=== PATIENT | male | born 1955 | race Caucasian/White ===

== ENCOUNTER 2023-02-24 07:43 | Outpatient (OUT) | payer MEDICARE, OTHER, SELFPAY ==
[2023-02-24 09:18] LABS: Chol HDL Ratio 2.7; Cholesterol 122 mg/dL (<=200); HDL Cholesterol 45 mg/dL (40-60); LDL Cholesterol Calculated 65.4 mg/dL; Magnesium 1.9 mg/dL (1.8-2.4); Triglycerides 58 mg/dL (<=150); VLDL CHOLESTEROL 11.6 mg/dL
== END 2023-02-24 07:44 | disposition home or self-care (01) ==
LOC: LAB 07:48
PROVIDERS: PCP Internal Medicine
DX: E78.2 Mixed hyperlipidemia (principal); I10 Essential (primary) hypertension
CPT/HCPCS: 36415; 80061; 83735

== ENCOUNTER 2024-07-30 12:56 | Outpatient (OUT) | payer MEDICARE, OTHER, SELFPAY ==
[2024-07-30 13:30] LABS: Basophils Absolute Auto 0.1 10^3/uL (0.0-0.1); Basophils Percent Auto 0.9 % (0.2-2.0); Eosinophils Absolute Auto 0.3 10^3/uL (0.0-0.7); Eosinophils Percent Auto 2.8 % (0.9-7.0); Hematocrit 42.1 % (42.0-54.0); Hemoglobin 14.3 g/dL (14.0-18.0); Immature Granulocytes Abs Auto 0.02 10^3/uL (0.00-0.03); Immature Granulocytes Pct Auto 0.2 % (0.0-0.5); Lymphocytes Absolute Auto 3.9 10^3/uL (1.2-3.8); Lymphocytes Percent Auto 44.4 % (20.5-60.0); Mean Corpuscular Hemoglobin 31.2 pg (25.9-34.0); Mean Corpuscular Volume 91.7 fL (80.0-94.0); Mean Platelet Volume 9.4 fL (9.5-13.5); Monocytes Absolute Auto 0.8 10^3/uL (0.3-0.8); Monocytes Percent Auto 9.4 % (1.7-12.0); Neutrophils Absolute Auto 3.7 10^3/uL (1.4-6.5); Neutrophils Percent Auto 42.3 % (43.0-75.0); Platelet Count 162 10^3/uL (150-450); Red Blood Count 4.59 10^6/uL (4.70-6.10); Red Cell Distribution Width 13.3 % (11.0-15.0); White Blood Count 8.8 10^3/uL (4.0-11.0)
[2024-07-30 13:51] LABS: Erythrocyte Sedimentation Rate 16 mm/hr (<=20)
[2024-07-30 13:58] LABS: C Reactive Protein <0.50 mg/dL (<=0.50)
== END 2024-07-30 12:57 | disposition home or self-care (01) ==
LOC: LAB 12:59
PROVIDERS: PCP Internal Medicine; Visit Provider Orthopaedic Surgery
DX: Z47.1 Aftercare following joint replacement surgery (principal); Z96.652 Presence of left artificial knee joint
CPT/HCPCS: 36415; 85025; 85652; 86140

== ENCOUNTER 2025-02-19 20:56 | Outpatient (OUT) | payer MEDICARE, OTHER, SELFPAY ==
--- OUTSIDE RECORDS SUMMARY | 2025-02-19 21:01 | XMS_ITS | Encounter Summary ---
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 Division of [facility] [place] - Sleep Disorders [address] [place] [address] [place] [address] [place] [address] [place] [address] Sleep Lab (PSG) Social History Tobacco UseTypesPacks/DayYears UsedDateSmoking Tobacco: [id number] Smokeless Tobacco: NeverAlcohol UseStandard Drinks/WeekCommentsYes2 (1 standard drink = 0.6 oz pure alcohol)beerSocial Connection and Isolation PanelAnswerDate RecordedIn a typical week, how many times do you talk on the phone with family, friends, or neighbors?More than three times a week03/17/2022How often do you get together with friends or relatives?More than three times a week03/17/2022How often do you attend adventist or mandaen services?More than 4 times per year 2Do you belong to any clubs or organizations such as adventist groups, unions, fraternal or athletic groups, or school groups?Yes03/17/2022How often do you attend meetings of the clubs or organizations you belong to?More than 4 times per year03/17/2022re you , , , , never , or living with a partner?Rsbfknm2803/17/2022UDIT-CAnswerDate RecordedQ1: How often do you have a drink containing alcohol?4 or more times a week 03/17/2022Q2: How many drinks containing alcohol do you have on a typical day when you are drinking?3 or Q3: How often do you have six or more drinks on one occasion?Never03/17/2022verall Financial Resource Strain (CARDIA) AnswerDate RecordedHow hard is it for you to pay for the very basics like food, housing, medical care, and heating?Not hard at all03/17/2022HQ-2AnswerDate RecordedTotal Nmmxh951[facility] [place] of Occup[facility] - Occupational Stress QuestionnaireAnswerDate RecordedDo you feel stress - tense, restless, nervous, or anxious, or unable to sleep at night because yourmind is troubled all the time - these days?Patient zcwgycxp69/30/2022Exercise Vital Sign AnswerDate RecordedOn average, how many days per week do you engage in moderate to strenuous exercise (like a brisk walk)?5 days03/17/2022n average, how many minutes do you engage in exercise at this level?20 min03/17/2022RAPARE - TransportationAnswerDate RecordedIn the past 12 months, has lack of transportation kept you from medical appointments or from getting medications?No 03/17/2022In the past 12 months, has lack of transportation kept you from meetings, work, or from getting things needed for daily living?No03/17/2022 ChildcareAnswerDate RecordedDo problems getting 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 children'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 make it difficult for you to work or study?No03/17/2022EmploymentAnswerDate RecordedDo you need help finding a local career center and/or a training program?No03/17/2022Hunger ScreeningAnswerDate RecordedWithin the past 12 months we worried whether our food would run out before we got money to buy more.Never True10/24/2024Within the past 12 months the food we bought just didn't last and we didn't have money to get more.Never True10/24/2024Purpose - LifeAnswerDate RecordedI have a purpose and direction in my life.Strongly Agree03/17/2022EducationAnswerDate RecordedWhat is the highest level of school you have completed or the highest degree you have received?Associate degree: occupational, technical, or vocational vwftpht9903/17/2022ex and Gender InformationValueDate RecordedSex Assigned at BirthNot on fileLegal WpqXuvr1111/21/2014 11:54 AM EDTGender Identity Not on fileSexual OrientationNot on filedocumented as of this encounter Miscellaneous Notes * Telephone Encounter - Svetlana Ragland - 02/06/2025 2:01 PM EDT 02/04 received PSG order 02/06 1st call, [facility] said they can't take the call and hung up. Sent letter PSG order and 02/04 Cesar notes in epic * Telephone Encounter - Lyn Morataya - 02/06/2025 2:01 PM EDT Order Deferred Pt called he is already scheduled [place] sleep study documented in this encounter Plan of Treatment DateTypeDepartmentCare Team (Latest Contact Info)Rfuityyhmcv52/06/2025 8:00 AM ESTOffice Visit [facility] [address] [place] [address] Dameon Eason MD [address] [place] [address] Sofía Wong MD [address] [place], [place] [id number] 03/18/2025 11:30 AM ESTOffice Visit [facility] [address] [place] [address] Katheryn Gill, DO [address] [place] [address] 03/20/2025 12:30 PM ESTH[facility] [address] [place] [address] [place] [address] Katheryn Gill, DO [address] [place] [address] 03/20/2025 12:30 PM EST - 03/20/2025 2:30 PM ESTSurgery [facility] [address] [place] [address] Katheryn Gill, DO [address] [place] [address] LIGATION VEIN LOWER EXTREMITY OPEN GROIN VARICOSITIES (DIRECTLY OFF THE FEMORAL VEIN WITH NO STRAIGHT SEGMENT)04/01/2025 10:30 AM ESTOffice Visit [facility] [address] [place] [address] [address] [place] [address] Katheryn Gill, DO [address] [place] [address] NamePriorityAssociated DiagnosesDate/TimeLIGATION VEIN LOWER EXTREMITY Chronic venous insufficiency of lower extremity 03/20/2025 12:30 PM ESTPHLEBECTOMY Chronic venous insufficiency of lower extremity 03/20/2025 12:30 PM ESTdocumented as of this encounter Visit Diagnoses Not on filedocumented in this encounter Additional Health Concerns AssessmentNoted TimePHQ-9 Depression Total Score: 1:54 PM EDT documented as of this encounter Care Teams Team MemberRelationshipSpecialtyStart DateEnd Date Darell Chapman DO [address] [place] [address] PCP - GeneralInternal Medicine11/01/16documented as of this encounter
--- OUTSIDE RECORDS SUMMARY | 2025-02-19 21:01 | XMS_ITS | CCD ---
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 Name Role Phone MD MADHURI GERMAIN Attending Unavailable ALEK SHELTON Primary Care Unavailable ALEK SHELTON Consulting Unavailable Prince Velazquez Consulting Unavailable MD MDAHURI GERMAIN Attending Unavailable ALEK SHELTON Primary Care Unavailable ALEK SHELTON Consulting Unavailable MD MADHURI GERMAIN Admitting Unavailable MD MADHURI GERMAIN Attending Unavailable ALEK SHELTON Primary Care Unavailable ALEX HAYES PA-C Consulting Unavaila MD MADHURI Moreno Admitting Unavailable MD AMDHURI GERMAIN Attending Unavailable YUHAS, ALEK LOPEZ Primary Care Unavailable ALEX HAYES PA-C Consulting Unavaila ble ALEK SHELTON Consulting Unavailable MD MADHURI GERMAIN Attending Unavailable VIOLAHAS, ALEK LOPEZ Primary Care Unavailable MARIESALEK Consulting Unavailable Prince Velazquez Consulting Unavailable MD MADHURI GERMAIN Attending Unavailable MD FARHEEN STONE Referring Unavaila ble ALEK SHELTON Primary Care Unavailable Prince Velazquez Consulting Unavailable MD MADHURI GERMAIN Attending Unavailable ALEK SHELTON Primary Care Unavailable ALEK SHELTON Consulting Unavailable DO Alek Shelton Primary Care Provider [phone] MD Jaren Velazquez Attending Provider DO Alek Shelton Primary Care Provider [phone] MD Jaren Velazquez Attending Provider DR JUMA RODRIGUEZ Consulting Unavailable THERON Noel, DR DENNISON Attending Unavailable CAT, DR GASTON Primary Care Unavailable THERON Noel, DR DENNISON Admitting Unavailable MISC, DR KNOX Consulting Unavailable MISC, DR KNOX Attending Unavailable YUHAAlexandria, DR GASTON Primary Care Unavailable MISC, DR DOCTOR Admitting Unavailable YUHAS, DR GASTON Primary Care Unavailable WEST, DR MIREYA Basurto Consulting Unavailable WEST, DR MIREYA Basurto Attending Unavailable WEST, DR MIREYA Basurto Admitting Unavailable ZIEBER, DR DARIN Yee Consulting Unavailable WEST, DR MIREYA Basurto Consulting Unavailable WEST, DR MIREYA Basurto Attending Unavailable YUHAS, DR GASTON Primary Care Unavailable WEST, DR MIREYA Basurto Admitting Unavailable ZIEBER, DR DARIN Yee Consulting Unavailable YUHAS, DR GASTON Primary Care Unavailable WEST, DR MIREYA Basurto Attending Unavailable WEST, DR MIREYA Basurto Admitting Unavailable WEST, DR MIREYA Basurto Consulting Unavailable ZIEBER, DR DARIN Yee Consulting Unavailable WEST, DR MIREYA Basurto Consulting Unavailable YUHAS, DR GASTON Primary Care Unavailable WEST, DR MIREYA Basurto Attending Unavailable WEST, DR MIREYA Basurto Admitting Unavailable ZIEBER, DR DARIN Yee Consulting Unavailable YUHAS, DR GASTON Primary Care Unavailable WEST, DR MIREYA Basurto Attending Unavailable WEST, DR MIREYA Basurto Admitting Unavailable WEST, DR MIREYA Basurto Consulting Unavailable ZIEBER, DR DARIN Yee Consulting Unavailable YUHAS, DR GASTON Primary Care Unavailable WEST, DR MIREYA Basurto Consulting Unavailable WEST, DR MIREYA Basurto Attending Unavailable WEST, DR MIREYA Basurto Admitting Unavailable ZIEBER, DR DARIN Yee Consulting Unavailable YUHAS, DR GASTON Primary Care Unavailable WEST, DR MIREYA Basurto Consulting Unavailable WEST, DR MIREYA Basurto Attending Unavailable WEST, DR MIREYA Basruto Admitting Unavailable Yuhas, DO Gaston Primary Care Provider ILIANA Villanueva Attending Provider MariesDO Gaston Primary Care Provider [phone] ILIANA Villanueva Attending Provider Yus, DO Gaston Primary Care Provider ILIANA Villanueva Attending Provider Yuhas, DO Gaston Primary Care Provider MD Prince Velazquez Attending Provider Alek Shelton DO Primary Care Provider Alek Shelton DO Primary Care Provider Prince Velazquez MD Attending Provider Yuhas DO, Alek L Primary Care Provider Maries Alek Primary Care Provider Prince Velazquez MD Attending Provider [phone] Shelby Waldron DO Attending Provider DEBENEDETTI, YANI L Attending Unavailable YUHAS, ALEK L Referring Unavailable YUHAS, ALEK L Primary Care Unavailable DEBENEDETTI, YANI L Attending Unavailable DEBENEDETTI, YANI L Referring Unavailable YUHAS, ALEK L Primary Care Unavailable DEBENEDETTI, YANI L Attending Unavailable DEBENEDETTI, YANI L Referring Unavailable YUHAS, ALEK L Primary Care Unavailable DEBENEDETTI, YANI L Attending Unavailable DEBENEDETTI, YANI L Referring Unavailable YUHAS, ALEK L Primary Care Unavailable DEBENEDETTI, YANI L Attending Unavailable DEBENEDETTI, YANI L Referring Unavailable YUHAS, ALEK L Primary Care Unavailable DEBENEDETTI, YANI L Attending Unavailable DEBENEDETTI, YANI L Referring Unavailable YUHAS, ALEK L Primary Care Unavailable DEBENEDETTI, YANI L Attending Unavailable DEBENEDETTI, YANI L Referring Unavailable YUHAS, ALEK L Primary Care Unavailable YUHAS, ALEK L Attending Unavailable YUHAS, ALEK L Referring Unavailable YUHAS, ALEK L Primary Care Unavailable ALEA, CURRY Attending Unavailable ALEA, CURRY Referring Unavailable YUHAS, ALEK L Primary Care Unavailable ALEA, CURRY Attending Unavailable YUHAS, LAEK L Referring Unavailable YUHAS, ALEK L Primary Care Unavailable KATHERYN POWERS M Referring Unavailable YUHAS, ALEK L Primary Care Unavailable KATHERYN POWERS M Attending Unavailable POWERSKATHERYN M Referring Unavailable YUHAS, ALEK L Primary Care Unavailable POWERS KATHERYN M Attending Unavailable POWERS, KATHERYN M Referring Unavailable YUHAS, ALEK L Primary Care Unavailable Yuhas Alek GREGORY Primary Care Provider [phone] Prince Velazquez MD Attending Provider YUHAS, ALEK L Attending Unavailable YUHAS, ALEK L Referring Unavailable YUHAS, ALEK L Primary Care Unavailable YUHAS, ALEK L Attending Unavailable YUHAS, ALEK L Referring Unavailable YUHAS, ALEK L Primary Care Unavailable KATHERYN POWERS M Attending Unavailable YUHAS, ALEK L Referring Unavailable YUHAS, ALEK L Primary Care Unavailable KATHERYN POWERS M Attending Unavailable YUHAS, ALEK L Referring Unavailable MARIEALEK Ibrahim Primary Care Unavailable Velazquez, Prince Admitting Unavailable Velazquez, Prince Attending Unavailable MarieAlek ibrahim Primary Care Unavailable Violahas, Alek Primary Care Unavailable Velazquez, Prince Admitting Unavailable Velazquez, Prince Attending Unavailable CatAlek Primary Care Unavailable Velazquez, Prince Admitting Unavailable Velazquez, Prince Attending Unavailable Velazquez, Prince Attending Unavailable Velazquez, Prince Admitting Unavailable Violahas, Alek Primary Care Unavailable Maries Alek GREGORY Primary Care Provider [phone] CURRY CLEMONS Attending Unavailable YANI LUCIO Referring Unavailable MARIEALEK Ibrahim Primary Care Unavailable VIOLAALEK LOVE Referring Unavailable MARIEALEK Ibrahim Primary Care Unavailable HERNANDO GUERRERO Attending Unavailable MARIEALEK Ibrahim Referring Unavailable MARIEALEK Ibrahim Primary Care Unavailable Allergies Allergy ClassificationReported Allergen(s)Allergy TypeDate of OnsetReaction(s) Facility (1 source)Povidone-Iodine; Translations: [Betadine][facility] Medic[facility] Current Medications MedicationDrug Class(es)DatesSig (Normalized)Sig (Original)Acetaminophen (20 sources)take 1300 mg by mouth in the morningACETAMINOPHEN (TYLENOL ARTHRITIS ORAL) Take 1,300 mg by mouth in the morning. Activetake 1300 mg by mouth once dailyACETAMINOPHEN (TYLENOL ARTHRITIS ORAL) Take 1,300 mg by mouth daily. Active take 1300 mg by mouth once dailyACETAMINOPHEN (TYLENOL ARTHRITIS ORAL) Take 1,300 mg by mouth daily. 0 Activeatorvastatin 20 mg oral tablet (20 sources)HMG-CoA Reductase InhibitorStart: 35-58-7077gssa 1 tablet by mouth once daily at bedtimeatorvastatin (LIPITOR) 20 mg tablet Indications: Bradycardia , Essential hypertension , Mixed hyperlipidemia , Arteriosclerosis of arterial coronary artery bypass graft , Coronary arteriosclerosis Take 1 tablet (20 mg total) by mouth once daily at bedtime. 90 tablet 3 06/11/2024 ActiveStart: 04-16-2024 End: 27-80-3471xrlm 1 tablet by mouth once daily at bedtimeatorvastatin (LIPITOR) 20 mg tablet Indications: Bradycardia , Essential hypertension , Mixed hyperlipidemia , Arteriosclerosis of arterial coronary artery bypass graft , Coronary arteriosclerosis Take 1 tablet (20 mg total) by mouth once daily at bedtime. 04/16/2024 06/08/2024 Discontinued (Reorder)Start: 03-29-2024 atorvastatin (LIPITOR) 20 mg tablet Indications: Arteriosclerosis of arterial coronary artery bypass graft , Essential hypertension , Coronary arteriosclerosis , Mixed hyperlipidemia , Bradycardia TAKE 1 TABLET IN THE EVENING 90 tablet 03/29/2024 ActiveStart: 03-29-2023 End: 69-74-1554brxg 1 tablet by mouth once daily at bedtimeatorvastatin (LIPITOR) 20 mg tablet Indications: Bradycardia , Essential hypertension , Mixed hyperlipidemia , Arteriosclerosis of arterial coronary artery bypass graft , Coronary arteriosclerosis Take 1 tablet (20 mg total) by mouth once daily at bedtime. 04/16/2024 Activeazelastine hydrochloride 0.137 mg/actuat metered dose nasal spray (3 sources)Histamine-1 Receptor AntagonistStart: 87-88-4408lece 1 spray(s) nasal route in the morningazelastine (ASTELIN) 137 mcg (0.1 %) nasal spray Indications: Nasal congestion Administer 1 spray into each nostril in the morning and 1 spray before bedtime. Use in each nostril as directed. 30 mL 12 02/04/2025 Activecelecoxib 200 mg oral capsule (11 sources)Nonsteroidal Anti-inflammatory DrugStart: 31-72-5402iihb 1 capsule by mouth in the morningcelecoxib (CeleBREX) 200 mg capsule Take 1 capsule (200 mg total) by mouth in the morning. 08/27/2024 Activecetirizine hydrochloride 10 mg oral tablet (20 sources)Histamine-1 Receptor Antagonisttake 1 tablet by mouth in the morning cetirizine (ZyrTEC) 10 mg tablet Take 1 tablet (10 mg total) by mouth in the morning. Activecholecalciferol 0.025 mg oral tablet (20 sources)Vitamin Dtake 1 tablet by mouth in the morningcholecalciferol, vitamin D3, (VITAMIN D3) 1,000 units tablet Take 1 tablet (1,000 Units total) by mouth in the morning. Activeclopidogrel 75 mg oral tablet (20 sources)P2Y12 Platelet InhibitorStart: 90-98-1642tqsx 1 tablet by mouth in the morningclopidogreL (PLAVIX) 75 mg tablet Indications: Bradycardia , Essential hypertension , Mixed hyperlipidemia , Arteriosclerosis of arterial coronary artery bypass graft , Coronary arteriosclerosis Take1 tablet (75 mg total) by mouth in the morning. 90 tablet 3 06/11/2024 ActiveStart: 04-16-2024 End: 21-51-7981dvvb 1 tablet by mouth in the morningclopidogreL (PLAVIX) 75 mg tablet Indications: Bradycardia , Essential hypertension , Mixed hyperlipidemia , Arteriosclerosis of arterial coronary artery bypass graft , Coronary arteriosclerosis Take1 tablet (75 mg total) by mouth in the morning. 90 tablet 3 04/16/2024 06/08/2024 Discontinued (Reorder)Start: 61-57-3966ocushdtsrmF (PLAVIX) 75 mg tablet Indications: Arteriosclerosis of arterial coronary artery bypass graft , Essential hypertension , Coronary arteriosclerosis , Mixed hyperlipidemia , Bradycardia TAKE1 TABLET EVERY MORNING 90 tablet 03/29/2024 ActiveStart: 03-29-2023 End: 23-64-3591vzed 1 tablet by mouth in the morningclopidogreL (PLAVIX) 75 mg tablet Indications: Bradycardia , Essential hypertension , Mixed hyperlipidemia , Arteriosclerosis of arterial coronary artery bypass graft , Coronary arteriosclerosis Take1 tablet (75 mg total) by mouth in the morning. 90 tablet 3 04/16/2024 Activeezetimibe 10 mg oral tablet (20 sources)Dietary Cholesterol Absorption InhibitorStart: 94-71-9108krcn 1 tablet by mouth in the morningezetimibe (ZETIA) 10 mg tablet Indications: Bradycardia , Essential hypertension , Mixed hyperlipidemia , Arteriosclerosis of arterial coronary artery bypass graft , Coronary arteriosclerosis Take 1 t ablet (10 mg total) by mouth in the morning. 90 tablet 3 06/11/2024 ActiveStart: 04-16-2024 End: 63-24-2884mydj 1 tablet by mouth in the morningezetimibe (ZETIA) 10 mg tablet Indications: Bradycardia , Essential hypertension , Mixed hyperlipidemia , Arteriosclerosis of arterial coronary artery bypass graft , Coronary arteriosclerosis Take 1 tablet (10 mg total) by mouth in the morning. 04/16/2024 06/08/2024 Discontinued (Reorder)Start: 92-53-9998qngunzodk (ZETIA) 10 mg tablet Indications: Arteriosclerosis of arterial coronary artery bypass graft , Essential hypertension , Coronary arteriosclerosis , Mixed hyperlipidemia , Bradycardia TAKE 1 TABLET EVERY MORNING 90 tablet 03/29/2024 ActiveStart: 03-29-2023 End: 52-89-9858xymv 1 tablet by mouth in the morningezetimibe (ZETIA) 10 mg tablet Indications: Bradycardia , Essential hypertension , Mixed hyperlipidemia , Arteriosclerosis of arterial coronary artery bypass graft , Coronary arteriosclerosis Take 1 tablet (10 mg total) by mouth in the morning. 04/16/2024 Activefamotidine 40 mg oral tablet (3 sources)Histamine-2 Receptor AntagonistStart: 29-22-5955jkok 1 tablet by mouth in the morning, then take 1 tablet by mouth at bedtimefamotidine (PEPCID) 40 mg tablet Indications: Globus sensation , Laryngopharyngeal reflux (LPR) Take 1 tablet (40 mg total) by mouth in the morning and 1 tablet (40 mg total) before bedtime. 60 tablet 02/04/2025 Activefluticasone propionate 0.05 mg/actuat metered dose nasal spray (20 sources)CorticosteroidStart: 66-11-2539gtgf 2 spray(s) nasal route in the morningfluticasone propionate (FLONASE) 50 mcg/actuation nasal spray Indications: Nasal congestion Administer 2 sprays into each nostril in the morning. 16 g 11 02/04/2025 ActiveStart: 09-16-2022 End: 17-71-6633gpwhvncpwls propionate (FLONASE) 50 mcg/actuation nasal spray Indications: Seasonal allergic rhinitis, unspecified trigger Administer 1 spray into each nostril as needed for rhinitis or allergies. 16g 2 06/14/2023 Active inFLIXimab 100 mg injection (20 sources)Tumor Necrosis Factor BlockerinFLIXimab (REMICADE) 10 mg/mL injection Infuse into a venous catheter. Every 16 weeks -700 mg Activelosartan potassium 100 mg oral tablet (20 sources)Angiotensin 2 Receptor BlockerStart: 75-74-8841yngl 1 tablet by mouth in the morninglosartan (COZAAR) 100 mg tablet Indications: Bradycardia , Essential hypertension , Mixed hyperlipidemia , Arteriosclerosis of arterial coronary artery bypass graft , Coronary arteriosclerosis Take 1tablet (100 mg total) by mouth in the morning. 90 tablet 3 06/11/2024 ActiveStart: 04-16-2024 End: 30-58-3335elxv 1 tablet by mouth in the morninglosartan (COZAAR) 100 mg tablet Indications: Bradycardia , Essential hypertension , Mixed hyperlipidemia , Arteriosclerosis of arterial coronary artery bypass graft , Coronary arteriosclerosis Take 1tablet (100 mg total) by mouth in the morning. 04/16/2024 06/08/2024 Discontinued (Reorder)Start: 94-19-6468zgtjnbom (COZAAR) 100 mg tablet Indications: Arteriosclerosis of arterial coronary artery bypass graft , Essential hypertension , Coronary arteriosclerosis , Mixed hyperlipidemia , Bradycardia TAKE 1TABLET EVERY MORNING 90 tablet 03/29/2024 ActiveStart: 03-29-2023 End: 35-28-4496ucda 1 tablet by mouth in the morninglosartan (COZAAR) 100 mg tablet Indications: Bradycardia , Essential hypertension , Mixed hyperlipidemia , Arteriosclerosis of arterial coronary artery bypass graft , Coronary arteriosclerosis Take 1tablet (100 mg total) by mouth in the morning. 04/16/2024 Activemagnesium oxide 400 mg oral tablet (20 sources)Start: 64-43-5267ukjm 1 tablet by mouth in the morningmagnesium oxide (MAGOX) 400 mg tablet Indications: Arteriosclerosis of arterial coronary artery bypass graft , Stable angina , Essential hypertension , Coronary arteriosclerosis , Mixed hyperlipidemia , Bradycardia Take 1 tablet (400 mg total) by mouth in the morning. 90 tablet 3 03/29/2023 Activenitroglycerin 0.4 mg sublingual tablet (20 sources)Nitrate VasodilatorStart: 03-29-2023 End: 98-73-8129nhtlmwapfinrz (NITROSTAT) 0.4 MG SL tablet Indications: Bradycardia , Essential hypertension , Mixed hyperlipidemia , Arteriosclerosis of arterial coronary artery bypass graft , Stable angina , Coronary arteriosclerosis Place 1 tablet (0.4 mg total) under the tongue every 5 (five) minutes as neededfor chest pain. 25 tablet 3 04/16/2024 Activeomeprazole 20 mg delayed release oral capsule (20 sources)Proton Pump Inhibitortake 1 capsule by mouth in the morning omeprazole (PriLOSEC) 20 mg capsule Take 1 capsule (20 mg total) by mouth in the morning. Activepregabalin 50 mg oral capsule (11 sources)Start: 29-19-6567mrys 1 capsule by mouth once daily at bedtime pregabalin (LYRICA) 50 mg capsule Indications: Peripheral polyneuropathy Take 1 capsule (50 mg total) by mouth once daily at bedtime. 30 capsule 09/13/2024 ActivetiZANidine 4 mg oral tablet (12 sources)Central alpha-2 Adrenergic AgonistStart: 94-96-6405ahMTOjmtsq (ZANAFLEX) 4 mg tablet 06/05/2024 Activetriamcinolone acetonide 1 mg/ml topical cream (20 sources)CorticosteroidStart: 28-78-5701yltipjxfeotmf (KENALOG) 0.1 % cream 02/11/2022 ActiveStart: 98-46-4294mymnykluwzeeo (KENALOG) 0.1 % cream APPLY TO AFFECTED AREA TWICE A DAY NEEDED 02/11/2022 Activevitamin b12 1 mg oral tablet (17 sources)Vitamin R04fdum 1 tablet by mouth in the morningcyanocobalamin (vitamin B-12) 1000 MCG tablet Take 1 tablet (1,000 mcg total) by mouth in the morning. Activezinc gluconate 50 mg oral tablet (17 sources)take 0.5 tablet by mouth in the morningzinc gluconate 50 mg tablet Take 0.5 tablets (25 mg total) by mouth in the morning. Active Problems Active Problems Problem ClassificationProblemDateDocumented DateEpisodic/ChronicCardiac dysrhythmias (20 sources)Multiple premature ventricular complexes; Translations: [Ventricular premature depolarization]Onset: 377066-17-2019AccjbzlPglxudyfhazf of device; implant or graft (20 sources)Atherosclerosis of coronary artery bypass graft(s) without angina pectoris; Translations: [Arteriosclerosis of arterial coronary artery bypass graft]Onset: 16-79-8207EividrxRlzsrmpi atherosclerosis and other heart disease (20 sources)Stable angina; Translations: [Stable angina]Onset: 11-05-2016 70-39-4051OapqujdXayxaoilq of lipid metabolism (20 sources)Mixed hyperlipidemia; Translations: [Hyperlipidemia]Onset: 265575-25-0575ZfynqisGqphrcyqfc disorders (2 sources)Laryngopharyngeal reflux; Translations: [Gastro-esophageal reflux disease without esophagitis]Onset: 972606-29-8522NexjvjyHuiohpiyx hypertension (20 sources)Essential (primary) hypertension; Translations: [Essential hypertension]Onset: 736385-56-4135IzuatprUdbqnsz and fatigue (2 sources)Fatigue; Translations: [Chronic fatigue, unspecified]Onset: 641238-24-8392MrxoxitWchcgutfb or stenosis of precerebral arteries (4 sources)Bilateral stenosis of carotid arteries; Translations: [Occlusion and stenosis of bilateral carotid arteries]Onset: hronic Osteoarthritis (20 sources)Osteoarthritis of knee; Translations: [Osteoarthritis of knee, unspecified]Onset: 762225-23-4410TueumdxMdxai connective tissue disease (20 sources)Artificial knee joint present; Translations: [Presence of unspecified artificial knee joint]Onset: 579241-65-0601RsshvaoTjzxb diseases of veins and lymphatics (1 source)Lymphedema; Translations: [Lymphedema, not elsewhere classified] 13-59-4424NjrqkqnRntrc inflammatory condition of skin (20 sources)Psoriatic arthritis; Translations: [Arthropathic psoriasis, unspecified]Onset: 875294-32-8738LykccewRrtyh inflammatory condition of skin (1 source)Arthropathic psoriasis, unspecified; Translations: [Arthropathic psoriasis, unspecified]Onset: 60-30-9534IbhylwoJybhg lower respiratory disease (1 source)Snoring; Translations: [Snoring]27-58-0692XsofojkmQrexb lower respiratory disease (1 source)Snoring; Translations: [Snoring]Onset: 55-76-7832BxnqhijhKdlsk nervous system disorders (1 source)Polyneuropathy; Translations: [Polyneuropathy, unspecified]09-13-2024 ChronicOther nervous system disorders (2 sources)Idiopathic peripheral neuropathy; Translations: [Hereditary and idiopathic neuropathy, unspecified]77-12-1620CdwayotWmdxu nervous system disorders (1 source)Polyneuropathy, unspecified; Translations: [Polyneuropathy, unspecified]Onset: 96-83-4875NznupoaCwxbe nervous system disorders (2 sources)Polyneuropathy in diseases classified elsewhere; Translations: [Polyneuropathy in diseases classified elsewhere]Onset: 92-87-0846ZzccnodCybbq nervous system disorders (2 sources)Numbness and tingling sensation of skin; Translations: [Anesthesia of skin]81-47-4893WiefnqpoVgiab nervous system disorders (1 source)ClaudicationOnset: 44-64-5528ZrnojkvkIvgeb nutritional; endocrine; and metabolic disorders (20 sources)Obesity; Translations: [Obesity, unspecified]Onset: 03-15-2022 60-89-7078IaezultNqrhm nutritional; endocrine; and metabolic disorders (1 source)Hypomagnesemia; Translations: [Hypomagnesemia]06-38-5161OjbaofxMlkat nutritional; endocrine; and metabolic disorders (2 sources)Body mass index 30+ - obesity; Translations: [Body mass index (BMI) 38.0-38.9, adult]77-61-2818XtodflrJkivu nutritional; endocrine; and metabolic disorders (1 source)Body mass index (BMI) 38.0-38.9, adult; Translations: [Body mass index (BMI) 38.0-38.9, adult]Onset: 71-53-0573KtvignhIijni nutritional; endocrine; and metabolic disorders (1 source)Obesity, unspecified; Translations: [Obesity, unspecified]Onset: 94-13-5658RbuedbwQojcm upper respiratory disease (1 source)Seasonal allergic rhinitis; Translations: [Other seasonal allergic rhinitis]10-61-2666WvhfxzmJieuq upper respiratory disease (1 source)Nasal discharge; Translations: [Other specified disorders of nose and nasal sinuses]54-24-8214PaatcbziLccyq upper respiratory disease (1 source)Feeling of lump in throat; Translations: [Globus sensation]02-04-2025 EpisodicOther upper respiratory disease (1 source)Nasal congestion; Translations: [Nasal congestion]44-01-0897Oyxsikpe Other upper respiratory disease (1 source)Other specified disorders of nose and nasal sinuses; Translations: [Other specified disorders of nose and nasal sinuses]Onset: 26-55-6942Absioifg Other upper respiratory disease (1 source)Nasal congestion; Translations: [Nasal congestion]Onset: 02-04-2025 EpisodicResidual codes; unclassified (20 sources)Obstructive sleep apnea syndrome; Translations: [Obstructive sleep apnea (adult) (pediatric)]Onset: 727555-93-9374InqsdcnTenuzmff codes; unclassified (2 sources)Obstructive sleep apnea (adult) (pediatric); Translations: [Obstructive sleep apnea (adult) (pediatric)]Onset: 97-33-7126JikhemsMhivpwti codes; unclassified (1 source)Sleep apneaOnset: 14-16-5899RewlfylAeobnein codes; unclassified (2 sources)Bilateral lower limb edema; Translations: [Localized edema]12-07-2024 EpisodicResidual codes; unclassified (2 sources)Localized edema; Translations: [Localized edema]Onset: 11-26-2024 EpisodicResidual codes; unclassified (1 source)EdemaOnset: 58-06-8310CkckcgrlDzqezjsq codes; unclassified (2 sources)Other specified health status; Translations: [Other specified conditions influencing health status]Onset: 127815-31-5161Ydsfuggm Respiratory failure; insufficiency; arrest (adult) (1 source)Respiratory failure; insufficiency; arrest (adult)Onset: 01-14-2025 Rheumatoid arthritis and related disease (1 source)Rheumatoid arthritis without rheumatoid factor, multiple sites; Translations: [Rheumatoid arthritiswithout rheumatoid factor, multiple sites] Onset: 17-54-3520GjnnskiVqcbgzdefzha (1 source)Carotid Artery DiseaseOnset: 45-45-7666Liowheeuzdao (1 source)Varicose VeinsOnset: 88-25-6781Btsfnlbdeqnr (1 source)Extremity PainOnset: 92-50-6667Htsfzoxkaang (1 source)Peripheral NeuropathyOnset: 89-00-0552Zkgppxqjduuk (1 source)Foreign body sensation, throat; Translations: [Foreign body sensation, throat]Onset: 02-04-2025 Past or Other Problems Problem ClassificationProblemDateDocumented DateEpisodic/Chronic Administrative/social admission (1 source)Repeated prescription; Translations: [Encounter for issue of repeat prescription]27-53-3900WtenoxzjVanzvdu dysrhythmias (6 sources)Bradycardia; Translations: [Bradycardia, unspecified]Onset: 869729-07-0387EwsniupxOmjquefy mellitus without complication (20 sources)Impaired fasting glycemia; Translations: [Impaired fasting glucose] Onset: 750820-23-3382RzycetnxZoux disorders (20 sources)Mood disordersOnset: 06-14-2023 Resolved: Nausea and vomiting (1 source)Nausea with vomiting, unspecified; Translations: [NAUSEA WITH VOMITING UNSPECIFIED]Onset: 78-25-1885ExxssltkKycnpbipglr deficiencies (20 sources)Neuropathy due to vitamin B12 deficiency; Translations: [Deficiency of other specified B group vitamins]Onset: [id number] aftercare (1 source)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; Translations: [LONGTERM CURRENT USE OF ASPIRIN]Onset: 59-96-5581YujfjjgaJirzl aftercare (1 source)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; Translations: [OTH LONGTERM CURRENT DRUG THERAPY]Onset: 27-35-8373IlvwkkgoLowqw diseases of veins and lymphatics (16 sources)Venous insufficiency of leg; Translations: [Venous insufficiency (chronic) (peripheral)]Onset: [id number] diseases of veins and lymphatics (2 sources)Venous insufficiency (chronic) (peripheral); Translations: [Venous insufficiency (chronic) (peripheral)]Onset: 49-96-5065XbehgpycGsqli screening for suspected conditions (not mental disorders or infectious disease) (9 sources)Ambulatory ECG abnormal; Translations: [Abnormal electrocardiogram [ECG] [EKG]]Onset: [id number]sdsfbcr and visceral atherosclerosis (20 sources)Peripheral vascular disease; Translations: [Peripheral vascular disease, unspecified]Onset: 11-20-2013 Resolved: [id number]; thrombophlebitis and thromboembolism (20 sources)Phlebitis and thrombophlebitis of superficial vessels of right lower extremity; Translations: [Phlebitis and thrombophlebitis of superficial vessels of left lower extremity]Onset: 45-94-1246NidhpbcjLcumtxx (4 sources)Syncope and collapse; Translations: [SYNCOPE AND COLLAPSE]Onset: 00-00-8796DkiokwzqDypxbgrq veins of lower extremity (15 sources)Varicose veins of bilateral lower extremities with pain; Translations: [Venous varices]Onset: 77-50-4060FmbmoqajHslxo infection (1 source)Viral infection, unspecified; Translations: [VIRAL INFECTION UNSPECIFIED]Onset: 11-48-1736Kpwzlbpb Results Test NameValueInterpretationReference RangeFacilityAlanine aminotransferase [Enzymatic activity/volume] in Serum or PlasmaOrdered By: Prince Velazquez on 66-16-8610TYB [Catalytic activity/Vol]25 U/LNormal7-52[facility] TroyComment on above:Performed By: #### MG, LIPID #### [facility] [address] [id number] USAAlbumin [Mass/volume] in Serum or Plasma by Bromocresol green (BCG) dye binding methoOrdered By: Prince Velazquez on 24-81-8410Jlgiyjq BCG dye [Mass/Vol]4.3 g/dL3.5-5.7FCleveland Clinic Marymount HospitalAlkaline phosphatase [Enzymatic activity/volume] in Serum or PlasmaOrdered By: Prince Velazquez on 97-47-0262BEN [Catalytic activity/Vol]60 U/ZMysihz85-027ZzrgbnzmaKettering Health TroyComment on above:Result Comment: PERFORMED BY: [place] [address] PATHOLOGIST CASINO CASHIER RODNEY MELVIN M.D.Performed By: #### MG, LIPID #### [place] [address] USAAspartate aminotransferase [Enzymatic activity/volume] in Serum or PlasmaOrdered By: Prince Velazquez on 50-51-8970PKM [Catalytic activity/Vol]27 U/TCxofwq06-55YoppmxpbdKettering Health TroyComment on above: Performed By: #### MG, LIPID #### [place] [id number] USABasophils [#/volume] in Blood by Automated countOrdered By: Prince Velazquez on 34-32-6317Jorirzjcd (Bld) [#/Vol]0.1 10*3/uLNormal0.0-0.2 [facility] TroyComment on above:Performed By: #### MG, LIPID #### [place] [id number] USABasophils/100 leukocytes in Blood by Automated count Ordered By: Prince Velazquez on 29-42-7617Vglojxalc/100 WBC (Bld)0.7 %Normal. [facility] TroyComment on above:Performed By: #### MG, LIPID #### [facility] [address] [place] [address] USABilirubin.total [Mass/volume] in Serum or PlasmaOrdered By: Prince Wallrow on 77-48-9951Zebkjaptb [Mass/Vol]0.6 mg/dLNormal0.3-1.0 [facility] TroyComment on above:Performed By: #### MG, LIPID #### [place] [address] USACalcium [Mass/volume] in Serum or PlasmaOrdered By: Prince Wallrow on 06-43-1507Ccuzhrm [Mass/Vol]9.1 mg/dLNormal8.6-10.3FCleveland Clinic Marymount HospitalComment on above:Performed By: #### MG, LIPID #### [place] [address] USACarbon dioxide, total [Moles/volume] in Serum or Plasma Ordered By: Prince Velazquez on 77-18-1575BP3 [Moles/Vol]25.8 mmol/LNormal 21.0-31.0[facility] TroyComment on above:Performed By: #### MG, LIPID #### [place] [address] USAChloride [Moles/volume] in Serum or PlasmaOrdered By: Prince Wallrow on 95-44-1626Kxdyscdl [Moles/Vol]104 mmol/YMtuvtn59-454LgcbxqkbbKettering Health TroyComment on above:Performed By: #### MG, LIPID #### [place] [address] USAComplete Blood Count Auto Diffon 56-05-0438Dujh Corpuscular HGB Conc33.8 g/uGRxmedp70.5-35.6The [facility] Physician GroupComment on above:Performed By: #### MG, LIPID #### [place] [address] USANRBC%0.2 /100{WBC}Normal0-0.5[facility] Comment on above:Performed By: #### MG, LIPID #### [place] [address] USAWhite Blood Count7.6 [CFU]/mLNormal4.1-10.5The [facility] Physician GroupComment on above:Performed By: #### MG, LIPID #### [place] [address] USAComprehensive Metabolic Panelon 86-27-4775Vapnply [Mass/Vol]4.3 g/dLNormal3.5-5.7The [facility] Physician GroupComment on above: Performed By: #### MG, LIPID #### [place] [address] USAGFR/1.73 sq M.predicted MDRD (S/P/Bld) [Vol rate/Area] mL/min/{1.73_m2}NormalThe [facility] Physician [facility] HospitalComment on above:Performed By: #### MG, LIPID #### [place] [address] USACreatinine [Mass/volume] in Serum or PlasmaOrdered By: Prince Velazquez on 24-10-8524Qpljejqvhd [Mass/Vol]1.17 mg/dLNormal0.70-1.30 [facility] TroyComment on above:Performed By: #### MG, LIPID #### [place] [address] USAEosinophils [#/volume] in Blood by Automated countOrdered By: Prince Velazquez on 19-42-0630Sdexrzruync (Bld) [#/Vol]0.2 10*3/uLNormal 0.0-0.45[facility] TroyComment on above:Performed By: #### MG, LIPID #### [place] [address] USAEosinophils/100 leukocytes in Blood by Automated count Ordered By: Prince Velazquez on 79-96-2310Sugwanztfzk/100 WBC (Bld)2.9 %Normal. [facility] TroyComment on above:Performed By: #### MG, LIPID #### [place] [address] USAErythrocyte Sedimentation Rateon 73-83-3530RSD (Bld) [Velocity]26 mm/hHigh0-19The [facility] Physician GroupComment on above:Result Comment: PERFORMED BY: [place] [address] PATHOLOGIST CASINO CASHIER RODNEY MELVIN M.D.Performed By: #### MG, LIPID #### [place] [address] USAErythrocyte distribution width [Ratio] by Automated count Ordered By: Prince Velazquez on 76-42-3421Rmmtejdllzw distribution width (RBC) [Ratio]13.8 %Oxdbgn46.0-14.8[facility] TroyComment on above: Performed By: #### MG, LIPID #### [place] [address] USAErythrocyte sedimentation rate by Photometric method Ordered By: Prince Velazquez on 50-58-4953LPK Photometric method (Bld) [Velocity] 26 mm/hrHigh0-19[facility] Health TroyErythrocytes [#/volume] in Blood by Automated countOrdered By: Prince Velazquez on 29-20-4785ROR (Bld) [#/Vol]4.79 10*6/uLNormal3.90-5.60[facility] TroyComment on above:Performed By: #### MG, LIPID #### [place] [address] USAGlomerular filtration rate [Volume Rate/Area] in Serum, Plasma or Blood by CreatinineOrdered By: Prince Velazquez on 98-50-5987Gkkwpkjsrr filtration rate [Volume Rate/Area] in Serum, Plasma or Blood by Creatinine> 60.0 mL/MinKettering Health TroyGlucose [Mass/volume] in Serum or Plasma Ordered By: Prince Velazquez on 88-89-3134Dyqrojd [Mass/Vol]88 mg/kEVmmioj07-880 [facility] TroyComment on above:ADA recommended reference rangeRandom Glucose Reference Range is dependent on time and content of last meal. Glucose of more than 200 mg/dL in a nonstressed, ambulatory subject supports the diagnosisof Diabetes Mellitus.Result Comment: Random Glucose Reference Range is dependent on time and content of last meal. Glucose of more than 200 mg/dL in a nonstressed, ambulatory subject supports the diagnosis of Diabetes Mellitus. ADA recommended reference rangePerformed By: #### MG, LIPID #### [place] [address] USAHematocrit [Volume Fraction] of Blood by Automated count Ordered By: Prince Wallrow on 36-87-1941Houwdmidds (Bld) [Volume fraction]44.5 % Cuwbrf70.8-50.0[facility] TroyComment on above:Performed By: #### MG, LIPID #### [place] [address] USAHemoglobin [Mass/volume] in BloodOrdered By: Prince Wallrow on 78-19-2953Hrfstvcqel (Bld) [Mass/Vol]15.0 g/yIKumago17.0-17.0[facility] TroyComment on above:Performed By: #### MG, LIPID #### [place] [id number] USALeukocytes [#/volume] corrected for nucleated erythrocytes in Blood by Automated counOrdered By: Princelyudmila Velazquez on 90-12-6262TNZ corrected for nucl RBC Auto (Bld) [#/Vol]7.6 10*3/uL4.1-10.5FCleveland Clinic Marymount HospitalLeukocytes [#/volume] in Blood by Automated countOrdered By: Prince Velazquez on 50-47-5330UWZ (Bld) [#/Vol]7.6 10*3/uLNormal4.1-10.5FCleveland Clinic Marymount HospitalComment on above:Performed By: #### MG, LIPID #### [address] [place] [address] USALymphocytes [#/volume] in Blood by Automated countOrdered By: Prince Velazquez on 31-90-8949Cpctbcrakui (Bld) [#/Vol]2.6 10*3/uLNormal 1.00-4.8[facility] TroyComment on above:Performed By: #### MG, LIPID #### [facility] [address] [place] [address] USALymphocytes/100 leukocytes in Blood by Automated count Ordered By: Prince Velazquez on 69-29-3263Vabpqvkyhvo/100 WBC (Bld)33.5 %Normal. [facility] TroyComment on above:Performed By: #### MG, LIPID #### [address] [Entitic mass] by Automated countOrdered By: Prince Velazquez on 27-59-2636NRK (RBC) [Entitic mass]31.4 vrXnchab43.5-35.2FCleveland Clinic Marymount HospitalComment on above:Performed By: #### MG, LIPID #### [address] Auto (RBC) [Mass/Vol]Ordered By: Prince Velazquez on 82-06-9167UQYA (RBC) [Mass/Vol]33.8 g/dL32.5-35.6FCleveland Clinic Marymount HospitalMCV [Entitic volume] by Automated countOrdered By: Prince Velazquez on 07-55-6470PBX (RBC) [Entitic vol]92.8 sRGzzdwk41.5-101K[facility] TroyComment on above:Performed By: #### MG, LIPID #### [place] [address] USAMonocytes [#/volume] in Blood by Automated countOrdered By: Prince Velazquez on 91-50-6117Mxlxsubrt (Bld) [#/Vol]0.9 10*3/uLHigh0.0-0.8 [facility] TroyComment on above:Performed By: #### MG, LIPID #### [facility] [address] [place] [address] USAMonocytes/100 leukocytes in Blood by Automated count Ordered By: Prince Velazquez on 63-63-5138Kmodwvlen/100 WBC (Bld)11.4 %Normal. [facility] TroyComment on above:Performed By: #### MG, LIPID #### [facility] [address] [place] [address] USANeutrophils [#/volume] in Blood by Automated countOrdered By: Prince Velazquez on 34-92-7310Hzshgfgdivd (Bld) [#/Vol]3.9 10*3/uLNormal 1.8-7.7FCleveland Clinic Marymount HospitalComment on above:Performed By: #### MG, LIPID #### [place] [address] USANeutrophils/100 leukocytes in Blood by Automated count Ordered By: Prince Velazquez on 25-94-3755Ivsanqksdlt/100 WBC (Bld)51.5 %Normal. [facility] TroyComment on above:Performed By: #### MG, LIPID #### [place] [address] USANo Panel InformationOrdered By: Prince Velazquez on 92-40-9811Abpsdfmu Creatinine Clearance (ChemN/[facility] Health SpringfieldNucleated erythrocytes [Presence] in Blood by Automated countOrdered By: Prince Velazquez on 20-15-7325Tuygozowr RBC Auto Ql (Bld)0.2 /100{WBC}0-0.5 [facility] TroyPlatelet mean volume [Entitic volume] in Blood by Automated countOrdered By: Prince Velazquez on 91-66-7940Otyaixqp mean volume (Bld) [Entitic vol]8.3 fLNormal6.6-10.1FCleveland Clinic Marymount HospitalComment on above:Performed By: #### MG, LIPID #### [facility] [address] [place] [address] USAPlatelets [#/volume] in Blood by Automated countOrdered By: Prince Velazquez on 68-74-3696Kcegscgag (Bld) [#/Vol]159 10*3/jGXnmpgo503-523 [facility] TroyComment on above:Performed By: #### MG, LIPID #### [facility] [address] [place] [address] USAPotassium [Moles/volume] in Serum or PlasmaOrdered By: Prince Caroline on 09-34-9770Nfhxyspyh [Moles/Vol]4.3 mmol/LNormal3.5-5.1 [facility] TroyComment on above:Performed By: #### MG, LIPID #### [place] [address] USAProtein [Mass/volume] in Serum or PlasmaOrdered By: Prince Caroline on 43-76-2439Mnypybe [Mass/Vol]7.8 g/dLNormal6.4-8.9[facility] TroyComment on above:Performed By: #### MG, LIPID #### [place] [address] USASerum globulin measurement by calculation (mass/volume) Ordered By: Prince Velazquez on 24-01-1778Phokoten (S) [Mass/Vol]3.5 g/dLNormal [facility] TroyComment on above:Performed By: #### MG, LIPID #### [place] [address] USASerum or plasma albumin/globulin mass ratioOrdered By: Prince Velazquez on 83-65-6485Sfdqjoe/Globulin [Mass ratio]1.2 {ratio}Normal [facility] TroyComment on above:Performed By: #### MG, LIPID #### [place] [address] USASerum or plasma anion gap determinationOrdered By: Prince Velazquez on 88-71-3116Dhwxt gap [Moles/Vol]10.5 mmol/LNormal6.0-15.0[facility] TroyComment on above:Performed By: #### MG, LIPID #### [place] [address] USASodium [Moles/volume] in Serum or PlasmaOrdered By: Prince Velazquez on 97-43-3072Icnslx [Moles/Vol]136 mmol/VPfjrcg239-362ZzywhpwkyKettering Health TroyComment on above:Performed By: #### MG, LIPID #### [facility] [address] [place] [address] USAUrea nitrogen [Mass/volume] in Serum or PlasmaOrdered By: Prince Velazquez on 26-01-9466Tvaa nitrogen [Mass/Vol]18 mg/dLNormal7-[facility] TroyComment on above:Performed By: #### MG, LIPID #### [facility] [address] [id number] USACT CTV ABD AND PELVISon 52-28-8111YC CTV ABD AND PELVISCT CTV ABD AND PELVIS CT CTV ABD AND PELVIS CLINICAL HISTORY: Bilateral lower extremity edema COMPARISON: None. TECHNIQUE: * CT abdomen and pelvis was performed with the administration of intravenous contrast. Coronal and sagittal reformatted images were generated and reviewed. Automated exposure control was utilized. * All CT scans at this facility use dose modulation, iterative reconstruction, and/or weight based dosing when appropriate to reduce radiation dose to as low as reasonably achievable. FINDINGS: Visualized portions of lung parenchyma appear unremarkable. No pleural or pericardial effusions. No intra-abdominal free air or free fluid. Noncirrhotic liver morphology with no focal hepatic lesion. Cholelithiasis. No biliary ductal dilatation. Spleen, pancreas, adrenal glands appear unremarkable. No nephrolithiasis, hydronephrosis, or suspicious renal lesion. No pelvic free fluid. Nonenlarged prostate. The small bowel, terminal ileum, large bowel, and appendix appear unremarkable. Mildly prominent 7 mm short axis lymph node adjacent to the sigmoid colon and urinary bladder dome.Subcentimeter external iliac lymph node. Nonaneurysmal abdominal aorta. Partially imaged venous varicosities communicating with the femoral veins bilaterally. No evidence of central venous compression or venous thrombosis. Multilevel degenerative changes of the visualized spine. No acute osseous abnormality. IMPRESSION: * Partially imaged venous varicosities communicating with femoral veins bilaterally. No evidence ofcentral venous compression/occlusion or thrombosis. * Uncomplicated cholelithiasis. Approved by Resident: Richard Mccurdy MD on 12/10/2024 1:40 PM Familia Buck DO have personally reviewed the image(s) and agree with and/or edited the report Finalized by Familia Kerr DO on 12/10/2024 2:35 [facility] Carotid arteries - bilateralon 37-79-2759Hdudt: Plaque with no significant ICA spectral Doppler or color flow disturbances; ICA 67/26 cm/sec. Antegrade vertebral artery flow. Left: Plaque with no significant ICA spectral Doppler or color flow disturbances; ICA 70/22 cm/sec.Antegrade vertebral artery flow. Conclusions: BILATERAL: Plaque without significant stenosis (<50%) of the internal carotid artery. Antegrade vertebral artery flow.PM Ken Hurley MD - 12/06/2024 Right: Plaque with no significant ICA spectral Doppler or color flow disturbances; ICA 67/26 cm/sec. Antegrade vertebral artery flow. Left: Plaque with no significant ICA spectral Doppler or color flow disturbances; ICA 70/22 cm/sec.Antegrade vertebral artery flow. Conclusions: BILATERAL: Plaque without significant stenosis (<50%) of the internal carotid artery. Antegrade vertebral artery flow. [facility] HospitalRadiology Study observation (narrative)[facility] Medical CenterUS.doppler Extremity arteries - bilateral for physiologic artery study limitedon 87-22-2870Ognho: Essentially normal PVR waveform contour at the ankle. PT DEBBIE is 0.94; DP DEBBIE is 0.95. TBI is0.79. Multiphasic with diastolic flow reversal PT and DP CW Doppler waveforms. Left: Essentially normal PVR waveform contour at the ankle. PT DEBBIE is 0.91; DP DEBBIE is 0.93. TBI is 0.73. Multiphasic with diastolic flow reversal PT and DP CW Doppler waveforms. Conclusions: BILATERAL: Normal lower extremity DEBBIE examination at rest.PM Ken Hurley MD - 12/06/2024 Right: Essentially normal PVR waveform contour at the ankle. PT DEBBIE is 0.94; DP DEBBIE is 0.95. TBI is0.79. Multiphasic with diastolic flow reversal PT and DP CW Doppler waveforms. Left: Essentially normal PVR waveform contour at the ankle. PT DEBBIE is 0.91; DP DEBBIE is 0.93. TBI is 0.73. Multiphasic with diastolic flow reversal PT and DP CW Doppler waveforms. Conclusions: BILATERAL: Normal lower extremity DEBBIE examination at rest. [facility] SystemRadiology Study observation (narrative)[facility] SystemMaxcyte [facility].doppler Lower extremity artery - bilateral on 72-46-2592Yzpvs: Plaque and elevated proximal deep femoral artery spectral Doppler waveforms with color flow disturbance and PSV velocity ratio of 2.6. Plaque and spectral waveforms with diastolic flow reversal noted in the external iliac, common femoral, superficial femoral, popliteal, peroneal, posterior and anterior tibial artery without significant color flow disturbance. Left: Plaque and elevated distal superficial femoral artery spectral Doppler waveforms with color flow disturbance and PSV velocity ratio of 4.0. Plaque and spectral waveforms with diastolic flow reversal noted in the external iliac, common femoral, deep femoral, proximal and mid superficial femoral, popliteal, peroneal, posterior and anterior tibial artery without significant color flow disturbance. 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 LEFT: Hemodynamically significant stenosis of the superficial femoral artery. Ken Hurley MD - 12/06/2024 Right: Plaque and elevated proximal deep femoral artery spectral Doppler waveforms with color flow disturbance and PSV velocity ratio of 2.6. Plaque and spectral waveforms with diastolic flow reversal noted in the external iliac, common femoral, superficial femoral, popliteal, peroneal, posterior and anterior tibial artery without significant color flow disturbance. Left: Plaque and elevated distal superficial femoral artery spectral Doppler waveforms with color flow disturbance and PSV velocity ratio of 4.0. Plaque and spectral waveforms with diastolic flow reversal noted in the external iliac, common femoral, deep femoral, proximal and mid superficial femoral, popliteal, peroneal, posterior and anterior tibial artery without significant color flow disturbance. 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 LEFT: Hemodynamically significant stenosis of the superficial femoral artery. [facility] CenterRadiology Study observation (narrative)[facility] SystemMax[facility].doppler Lower extremity artery - bilateralOrdered By: Ken Costello on 83-70-9291JxsIngrhl Health [facility] Work Phone: CREATININE, SERUMon 94-87-7420Uxnovnneku [Mass/Vol] 1.16 mg/dLNormal0.60-1.30[facility] Medical CenterComment on above:Result Comment: METHOD TRACEABLE TO [facility] STANDARDPerformed By: #### PRODUCTION ILLUSTRATOR #### [facility] ([facility]) [address] [place] [address] VIRGFR/1.73 sq M.predicted among non-blacks MDRD (S/P/Bld) [Vol rate/Area]69 mL/min/{1.73_m2}Normal>=60ProHouston Methodist West HospitalComment on above:Result Comment: Reported eGFR is based on the CKD-EPI 2020 equation that does not use a race coefficient.Performed By: #### PRODUCTION ILLUSTRATOR #### [facility] ([facility]) [address] [place] [address] VIRCreatinine includes GFR, serumon 70-48-2660Fcmvbfcmju [Mass/Vol]1.16 mg/dL0.60 - 1.30 mg/dLUniversity Hospitals Geauga Medical CenterComment on above: METHOD TRACEABLE TO [facility] STANDARDEGFR Non-Race [address] [place], [place] [address]Comment on above:Reported eGFR is based on the CKD-EPI 1 equation that does not use a race coefficient. Interpretation and review of laboratory resultsNormCrozer-Chester Medical CenterAlanine aminotransferase [Enzymatic activity/volume] in Serum or PlasmaOrdered By: Prince Velazquez on 52-55-2761DSJ [Catalytic activity/Vol]23 U/LNormal7-52[facility] TroyComment on above: Performed By: #### ESR, CBC, CMP #### [facility] [address] [place] [address] USAAlbumin [Mass/volume] in Serum or Plasma by Bromocresol green (BCG) dye binding methoOrdered By: Prince Velazquez on 45-61-7221Wpakpmq BCG dye [Mass/Vol]4.1 g/dL3.5-5.7FCleveland Clinic Marymount HospitalAlkaline phosphatase [Enzymatic activity/volume] in Serum or PlasmaOrdered By: Prince Velazquez on 31-90-8709ZAU [Catalytic activity/Vol]57 U/IGtscyh64-968PwoaiiijcKettering Health TroyComment on above:Result Comment: PERFORMED BY: [place] [address] PATHOLOGIST CASINO CASHIER RODNEY MELVIN M.D.Performed By: #### ESR, CBC, CMP #### [place] [address] USAAspartate aminotransferase [Enzymatic activity/volume] in Serum or PlasmaOrdered By: Prince Velazquez on 94-58-7437CNM [Catalytic activity/Vol]26 U/LWfgdlh20-33JopqunpmnKettering Health TroyComment on above: Performed By: #### ESR, CBC, CMP #### [place] [address] USABasophils [#/volume] in Blood by Automated countOrdered By: Prince Velazquez on 29-64-8341Pmndimtrk (Bld) [#/Vol]0.0 10*3/uLNormal0.0-0.2 [facility] TroyComment on above:Performed By: #### ESR, CBC, CMP #### [place] [address] USABasophils/100 leukocytes in Blood by Automated count Ordered By: Prince Velazquez on 84-85-9825Xwryrvump/100 WBC (Bld)0.6 %Normal. [facility] TroyComment on above:Performed By: #### ESR, CBC, CMP #### [place] [address] USABilirubin.total [Mass/volume] in Serum or PlasmaOrdered By: Prince Velazquez on 67-30-3927Rjdmnpyak [Mass/Vol]0.6 mg/dLNormal0.3-1.0 [facility] TroyComment on above:Performed By: #### ESR, CBC, CMP #### [place] [address] USACalcium [Mass/volume] in Serum or PlasmaOrdered By: Prince Velazquez on 95-65-8593Quiyrwk [Mass/Vol]8.8 mg/dLNormal8.6-10.3FCleveland Clinic Marymount HospitalComment on above:Performed By: #### ESR, CBC, CMP #### [place] [address] USACarbon dioxide, total [Moles/volume] in Serum or Plasma Ordered By: Prince Wallrow on 00-70-6576OM2 [Moles/Vol]22.7 mmol/LNormal 21.0-31.0[facility] TroyComment on above:Performed By: #### ESR, CBC, CMP #### [place] [address] USAChloride [Moles/volume] in Serum or PlasmaOrdered By: Prince Wallrow on 44-11-9833Ikirijlh [Moles/Vol]106 mmol/SAhtuua15-840BsvawnadxKettering Health TroyComment on above:Performed By: #### ESR, CBC, CMP #### [place] [address] USAComplete Blood Count Auto Diffon 54-89-9043Hbvq Corpuscular HGB Conc33.8 g/mGNprxwd44.5-35.6The [facility] Physician GroupComment on above:Performed By: #### ESR, CBC, CMP #### [place] [address] USANRBC%0.1 /100{WBC}Normal0-0.5[facility] Comment on above:Performed By: #### ESR, CBC, CMP #### [place] [address] USAWhite Blood Count6.3 [CFU]/mLNormal4.1-10.5The [facility] Physician GroupComment on above:Performed By: #### ESR, CBC, CMP #### [place] [address] USAComprehensive Metabolic Panelon 49-33-2822Zbgaqus [Mass/Vol]4.1 g/dLNormal3.5-5.7The [facility] Physician GroupComment on above: Performed By: #### ESR, CBC, CMP #### [place] [address] USAGFR/1.73 sq M.predicted MDRD (S/P/Bld) [Vol rate/Area] mL/min/{1.73_m2}NormalThe [facility] Physician GroupComment on above:Performed By: #### ESR, CBC, CMP #### [place] [address] USACreatinine [Mass/volume] in Serum or PlasmaOrdered By: Prince Velazquez on 14-96-1882Onxevbgwxx [Mass/Vol]1.09 mg/dLNormal0.70-1.30 [facility] TroyComment on above:Performed By: #### ESR, CBC, CMP #### [place] [address] USAEosinophils [#/volume] in Blood by Automated countOrdered By: Prince Velazquez on 59-93-1038Oqvqwdfwcxk (Bld) [#/Vol]0.2 10*3/uLNormal 0.0-0.45[facility] TroyComment on above:Performed By: #### ESR, CBC, CMP #### [place] [address] USAEosinophils/100 leukocytes in Blood by Automated count Ordered By: Prince Velazquez on 07-74-8171Hgusoeijizn/100 WBC (Bld)3.6 %Normal. [facility] TroyComment on above:Performed By: #### ESR, CBC, CMP #### [place] [address] USAErythrocyte Sedimentation Rateon 70-30-5748GVR (Bld) [Velocity]15 mm/hNormal0-19The [facility] Physician GroupComment on above:Result Comment: PERFORMED BY: [place] [address] PATHOLOGIST CASINO CASHIER RODNEY MELVIN M.D.Performed By: #### MG, LIPID #### [place] [address] USAErythrocyte distribution width [Ratio] by Automated count Ordered By: Prince Wallrow on 07-14-8399Shgouybpejj distribution width (RBC) [Ratio]14.0 %Lupmmh87.0-14.8[facility] TroyComment on above: Performed By: #### ESR, CBC, CMP #### [facility] [address] [place] [address] USAErythrocyte sedimentation rate by Photometric method Ordered By: Prince Wallrow on 07-46-3380HPA Photometric method (Bld) [Velocity] 15 mm/hr0-19[facility] TroyErythrocytes [#/volume] in Blood by Automated countOrdered By: Prince Caroline on 49-66-9439XOF (Bld) [#/Vol]4.58 10*6/uLNormal3.90-5.60[facility] TroyComment on above: Performed By: #### ESR, CBC, CMP #### [facility] [address] [place] [address] USAGlucose [Mass/volume] in Serum or PlasmaOrdered By: Prince Wallrow on 10-13-3045Xcvajcd [Mass/Vol]110 mg/pVShlh16-879XaoylbqfuKettering Health TroyComment on above:ADA recommended reference rangeRandom Glucose Reference Range is dependent on time and content of last meal. Glucose of more than 200 mg/dL in a nonstressed, ambulatory subject supports the diagnosisof Diabetes Mellitus.Result Comment: Random Glucose Reference Range is dependent on time and content of last meal. Glucose of more than 200 mg/dL in a nonstressed, ambulatory subject supports the diagnosis of Diabetes Mellitus. ADA recommended reference rangePerformed By: #### ESR, CBC, CMP #### [facility] [address] [place] [address] USAHematocrit [Volume Fraction] of Blood by Automated count Ordered By: Prince Caroline on 88-87-5492Hceegqszjq (Bld) [Volume fraction]42.2 % Gvxkpd81.8-50.0[facility] TroyComment on above:Performed By: #### ESR, CBC, CMP #### [facility] [address] [place] [address] USAHemoglobin [Mass/volume] in BloodOrdered By: Prince Wallrow on 07-67-0942Jojywiruvy (Bld) [Mass/Vol]14.2 g/nHEhqfuu89.0-17.0[facility] TroyComment on above:Performed By: #### ESR, CBC, CMP #### [place] [address] USALeukocytes [#/volume] corrected for nucleated erythrocytes in Blood by Automated counOrdered By: Prince Wallrow on 25-36-8892ZNG corrected for nucl RBC Auto (Bld) [#/Vol]6.3 10*3/uL4.1-10.5FCleveland Clinic Marymount HospitalLeukocytes [#/volume] in Blood by Automated countOrdered By: Princelyudmila Velazquez on 24-10-1295KVY (Bld) [#/Vol]6.3 10*3/uLNormal4.1-10.5FCleveland Clinic Marymount HospitalComment on above:Performed By: #### ESR, CBC, CMP #### [place] [address] USALymphocytes [#/volume] in Blood by Automated countOrdered By: Prince Caroline on 99-73-7846Whmcrncwzai (Bld) [#/Vol]2.3 10*3/uLNormal 1.00-4.8[facility] TroyComment on above:Performed By: #### ESR, CBC, CMP #### [place] [address] USALymphocytes/100 leukocytes in Blood by Automated count Ordered By: Prince Wallrow on 96-20-6923Rwosugpjyje/100 WBC (Bld)37.1 %Normal. [facility] TroyComment on above:Performed By: #### ESR, CBC, CMP #### [place] [address] USAMCH [Entitic mass] by Automated countOrdered By: Prince Velazquez on 08-78-0417JXK (RBC) [Entitic mass]31.1 bhHkmuli54.5-35.2FCleveland Clinic Marymount HospitalComment on above:Performed By: #### ESR, CBC, CMP #### [address] Auto (RBC) [Mass/Vol]Ordered By: Prince Velazquez on 48-81-1370VDHO (RBC) [Mass/Vol]33.8 g/dL32.5-35.6FCleveland Clinic Marymount HospitalMCV [Entitic volume] by Automated countOrdered By: Prince Wallrow on 23-33-7121RMS (RBC) [Entitic vol]92.2 vEHmyumk73.5-101[facility] TroyComment on above:Performed By: #### ESR, CBC, CMP #### [place] [address] USAMonocytes [#/volume] in Blood by Automated countOrdered By: Prince Velazquez on 62-72-6843Dgdmgusun (Bld) [#/Vol]0.7 10*3/uLNormal0.0-0.8 [facility] TroyComment on above:Performed By: #### ESR, CBC, CMP #### [place] [address] USAMonocytes/100 leukocytes in Blood by Automated count Ordered By: Prince Velazquez on 70-81-1794Xpyghuqbj/100 WBC (Bld)10.7 %Normal. [facility] TroyComment on above:Performed By: #### ESR, CBC, CMP #### [place] [address] USANeutrophils [#/volume] in Blood by Automated countOrdered By: Prince Velazquez on 18-47-6028Omqdrtgnonl (Bld) [#/Vol]3.0 10*3/uLNormal 1.8-7.7FCleveland Clinic Marymount HospitalComment on above:Performed By: #### ESR, CBC, CMP #### [place] [address] USANeutrophils/100 leukocytes in Blood by Automated count Ordered By: Prince Wallrow on 56-91-3596Nvvapldurvd/100 WBC (Bld)48.0 %Normal. [facility] TroyComment on above:Performed By: #### ESR, CBC, CMP #### [facility] [address] [place] [address] USANo Panel InformationOrdered By: Prince Wallrow on 39-20-7678Ctjijnqcw GFR (CKD-EPI)> 60.0 mL/MinKettering Health Troy Pharmacy Creatinine Clearance (ChemN/AFCleveland Clinic Marymount HospitalNucleated erythrocytes [Presence] in Blood by Automated countOrdered By: Prince Wallrow on 82-66-1217Zlujytkhp RBC Auto Ql (Bld)0.1 /100{WBC}0-0.5FCleveland Clinic Marymount HospitalPlatelet mean volume [Entitic volume] in Blood by Automated count Ordered By: Prince Caroline on 60-36-8625Fwvavhxc mean volume (Bld) [Entitic vol] 8.3 fLNormal6.6-10.1FCleveland Clinic Marymount HospitalComment on above:Performed By: #### ESR, CBC, CMP #### [facility] [address] [place] [address] USAPlatelets [#/volume] in Blood by Automated countOrdered By: Prince Caroline on 46-90-2524Mpmbousqd (Bld) [#/Vol]160 10*3/eSAotrtd722-459 [facility] TroyComment on above:Performed By: #### ESR, CBC, CMP #### [facility] [address] [place] [address] USAPotassium [Moles/volume] in Serum or PlasmaOrdered By: Princelyudmila Velazquez on 74-48-0455Eiyymuene [Moles/Vol]3.9 mmol/LNormal3.5-5.1 [facility] TroyComment on above:Performed By: #### ESR, CBC, CMP #### [place] [address] USAProtein [Mass/volume] in Serum or PlasmaOrdered By: Prince Velazquez on 78-31-9468Yapvrdk [Mass/Vol]7.1 g/dLNormal6.4-8.9[facility] TroyComment on above:Performed By: #### ESR, CBC, CMP #### [facility] [address] [place] [address] USASerum globulin measurement by calculation (mass/volume) Ordered By: Princelyudmila Velazquez on 40-82-6637Jdmqqjaj (S) [Mass/Vol]3.0 g/dLNormal [facility] TroyComment on above:Performed By: #### ESR, CBC, CMP #### [place] [address] USASerum or plasma albumin/globulin mass ratioOrdered By: Prince Velazquez on 48-46-2246Zyypstz/Globulin [Mass ratio]1.4 {ratio}Normal [facility] TroyComment on above:Performed By: #### ESR, CBC, CMP #### [place] [address] USASerum or plasma anion gap determinationOrdered By: Prince Velazquez on 53-03-4405Wqftb gap [Moles/Vol]12.2 mmol/LNormal6.0-15.0[facility] TroyComment on above:Performed By: #### ESR, CBC, CMP #### [place] [address] USASodium [Moles/volume] in Serum or PlasmaOrdered By: Prince Velazquez on 19-91-5384Rutiqk [Moles/Vol]137 mmol/JRlemzq980-209MwkmyjsaiKettering Health TroyComment on above:Performed By: #### ESR, CBC, CMP #### [place] [address] USAUrea nitrogen [Mass/volume] in Serum or PlasmaOrdered By: Prince Velazquez on 95-74-8236Xbox nitrogen [Mass/Vol]14 mg/dLNormal7-25[facility] TroyComment on above:Performed By: #### ESR, CBC, CMP #### [place] [address] USACBC WITH AUTO DIFFERENTIALon 20-77-3835IUHOJUPGO ABSOLUTE COUNT (10*3/UL) BY AUTOMATED COUNT0.1 10*3/uLNormal0.0-0.2PThe [facility] Ambulatory PPGComment on above:Performed By: #### CBCA #### [facility] ([facility]) [address] [place] [address] VIRBASOPHILS RELATIVE PERCENT BY AUTOMATED COUNT0.8 %Normal [facility] Ambulatory PPGComment on above:Performed By: #### CBCA #### [facility] ([facility]) [address] [place] [address] VIRCELLAVISION DIFFERENTIAL TYPEAUTOMATED DIFFERENTIALNormal [facility]ulatory PPGComment on above:Performed By: #### CBCA #### [facility] ([facility]) [address] [place] [address] VIREosinophils (Bld) [#/Vol]0.2 10*3/uLNormal0.0-0.4[facility] PPGComment on above:Performed By: #### CBCA #### [facility] ([facility]) [address] [place] [address] VIREOSINOPHILS RELATIVE PERCENT BY AUTOMATED COUNT3.1 %Normal [facility]ulatory PPGComment on above:Performed By: #### CBCA #### [facility] ([facility]) [address] [place] [address] VIRErythrocyte distribution width (RBC) [Ratio]14.1 %Normal 11.5-15[facility] PPGComment on above:Performed By: #### CBCA #### [facility] ([facility]) [address] [place] [address] VIRHematocrit (Bld) [Volume fraction]43.1 %Oxquuc62-89EpzYfppxz Hospital Ambulatory PPGComment on above:Performed By: #### CBCA #### [facility] ([facility]) [address] [place] [address] VIRHemoglobin (Bld) [Mass/Vol]14.5 g/mYFohsfx32-19BtsUzyrph Hospital Ambulatory PPGComment on above:Performed By: #### CBCA #### [facility] ([facility]) [address] [place] [address] VIRLYMPHOCYTES ABSOLUTE COUNT (10*3/UL) BY AUTOMATED COUNT2.7 10*3/uLNormal1.0-3.5PThe [facility] Ambulatory PPGComment on above:Performed By: #### CBCA #### [facility] ([facility]) [address] [place] [address] VIRLYMPHOCYTES RELATIVE PERCENT BY AUTOMATED COUNT43.3 %Normal [facility] Ambulatory PPGComment on above:Performed By: #### CBCA #### [facility] ([facility]) [address] [place] [address] VIRMCH (RBC) [Entitic mass]30.8 xuHfztgd40-36GpbRjfjgc Hospital Ambulatory PPGComment on above:Performed By: #### CBCA #### [facility] ([facility]) [address] [place] [address] VIRMCHC (RBC) [Mass/Vol]33.7 g/cIIndfgz78-53NcvKbwyek Hospital Ambulatory PPGComment on above:Performed By: #### CBCA #### [facility] ([facility]) [address] [place] [address] VIRMCV (RBC) [Entitic vol]91 kHKdukyj30-629YpiUerzhw Hospital Ambulatory PPGComment on above:Performed By: #### CBCA #### [facility] ([facility]) [address] [place] [address] VIRMONOCYTES ABSOLUTE COUNT (10*3/UL) BY AUTOMATED COUNT0.6 10*3/uLNormal0.0-0.9[facility] Ambulatory PPGComment on above:Performed By: #### CBCA #### [facility] ([facility]) [address] [place] [address] VIRMONOCYTES RELATIVE PERCENT BY AUTOMATED COUNT10.0 %Normal [facility] Ambulatory PPGComment on above:Performed By: #### CBCA #### [facility] ([facility]) [address] [place] [address] VIRNEUTROPHILS ABSOLUTE COUNT BY AUTOMATED COUNT2.7 10*3/uL Normal1.5-6.6[facility]ulatory PPGComment on above:Performed By: #### CBCA #### [facility] ([facility]) [address] [place] [address] VIRNEUTROPHILS RELATIVE PERCENT BY AUTOMATED COUNT42.8 %Normal [facility] Ambulatory PPGComment on above:Performed By: #### CBCA #### [facility] ([facility]) [address] [place] [address] VIRPlatelet mean volume (Bld) [Entitic vol]8.2 fLNormal7-12 [facility] Ambulatory PPGComment on above:Performed By: #### CBCA #### [facility] ([facility]) [address] [place] [address] VIRPlatelets (Bld) [#/Vol]157 10*3/xFXrrjhc049-150FdvRhqxrj Hospital Ambulatory PPGComment on above:Performed By: #### CBCA #### [facility] ([facility]) [address] [place] [address] VIRRBC COUNT4.73 X10E12/LNormal4.1-5.7[facility] PPGComment on above:Performed By: #### CBCA #### [facility] ([facility]) [address] [place] [address] VIRWBC (Bld) [#/Vol]6.3 10*3/uLNormal4-11[facility] PPGComment on above:Performed By: #### CBCA #### [facility] ([facility]) [address] [place] [address] VIRCERULOPLASMINon 16-91-9834ZPBJHXWPTKWMW77 mg/uNKxskie49-17 [facility] Ambulatory PPGComment on above:Performed By: #### CER #### [facility] ([facility]) [address] [place] [address] VIRERYTHROCYTE SEDIMENTATION RATE (ESR)on 02-90-0521REM, ERYTHROCYTE SEDIMENTATION RATE21 mm/hHigh0-20[facility]PG Comment on above:Performed By: #### ESR #### [facility] ([facility]) [address] [place] [address] VIRLYME TOTALon 09-37-6339COIF TOTAL<^0.2Normal<0.9[facility]ulatory PPGComment on above:Order Comment: Interpretation < 0.9 Negative 0.9 - 1.0 Equivocal > 1.0 Positive No serological evidence of Borrelia infection. A non-reactive result does not exclude the possibility of Borrelia infection and cannot exclude early infection wth B. burgdorferi. If Lyme borreliosis is suspected, a second sample should be collected and tested 2-4 weeks later.Performed By: #### LYMET #### [facility] ([facility]) [address] [place] [address] VIRMETHYLMALONIC ACID, QN, Inocente 00-42-4137NKEJZUVFRSDXR ACID, QN, P0.19 nmol/mLNormal<=0.40[facility] Ambulatory PPGComment on above: Result Comment: ADDITIONAL INFORMATION This test was developed and its performance characteristics determined by [facility] in a manner consistent with CLIA requirements. This test has not been cleared or approved by the U.S. Food and Drug Administration. Test Performed by: [address] [address] Internal Revenue Service Agent: German Morrison Ph.D.; CLIA# [id number] By: #### MMAP #### [facility] [employer] ([facility]) [address] [place] [address] VIRCBC AND AUTO DIFFon 18-73-1637RTWSKKSQ BASOPHIL0.0 X10E9/LNormal0.0-0.2[facility]MedM[facility]field Hospital HospitalComment on above:Performed By: #### Kathleen LAWSON31-1, CBCA, CMP, 2131-12 #### [facility] ([id number]) [address] [place], [place] [address]UQHIBFBG NEUTROPHIL4.0 X10E9/LNormal1.5-6.6ProMercy Health St[facility]'S [facility] HospitalComment on above:Performed By: #### Hakeem LAWSON-1, CBCA, CMP, 2131-12 #### [facility] ([id number]) [address], [address] [place], [place] [address]Lshklnbfy/100 WBC (Bld)0.5 %NormalCleveland Clinic Marymount Hospital Comment on above:Performed By: #### Kathleen LAWSON31-1, CBCA, CMP, 2131-12 #### [facility] ([id number]) [address], [address] [place], [place] [address]Elkojurvprs (Bld) [#/Vol]0.2 10*3/uLNormal0.0-0.4[facility] HospitalComment on above:Performed By: #### RENNY [address]60-3, CBCA, CMP, 2131-12 #### [facility] ([id number]) [address] [place], [place] [address]Ygbfrnaauso/100 WBC (Bld)2.7 %NormalCleveland Clinic Marymount Hospital Comment on above:Performed By: #### RENNY 58461-8, CBCA, CMP, 2131-12 #### [facility] ([id number]) [address] [place], [place] [address]Ypjiiqyfjfv distribution width (RBC) [Ratio]13.9 %Normal 11.5-15.0ProMercy Health St. [facility]'S [facility] HospitalComment on above:Performed By: #### TSHR, 46183-6, CBCA, CMP, 2131-12 #### [facility] ([id number]) [address], [address] [place], [place] [address]Zzkgseargj (Bld) [Volume fraction]44.3 %Reglha00-18ZpaXtjxds [facility] HospitalComment on above:Performed By: #### TSHR, 86051-1, CBCA, CMP, 2131-12 #### [facility] ([id number]) [address], [address] [place], [place] [address]Ycehkflbiz (Bld) [Mass/Vol]14.9 g/gQXvxrcx85.0-17.0ProCleveland Clinic Hillcrest Hospitalca [facility] HospitalComment on above:Performed By: #### TSHR, 71747-7, CBCA, CMP, 2131-12 #### [facility] ([id number]) [address], [address] [place], [place] [address]Dwazlsejcwc (Bld) [#/Vol]3.6 10*3/uLHigh1.0-3.5[facility] HospitalComment on above:Performed By: #### TSHR, 49154-6, CBCA, CMP, 2131-12 #### [facility] ([id number]) [address], [address] [place], [place] [address]Uhctpgcenfe/100 WBC (Bld)42.1 %NormalProMercy Health St. Rita'S Medical Center Hospital Comment on above:Performed By: #### TSHR, 42636-9, CBCA, CMP, 2131-12 #### [facility] ([id number]) [address], [address] [place], [place] [address]JVY (RBC) [Entitic mass]31.0 emDssogg64-69TlaDfyjri [facility] HospitalComment on above:Performed By: #### TSHR, 50664-8, CBCA, CMP, 2131-12 #### [facility] ([id number]) [address], [address] [place], [place] [address]TKPR (RBC) [Mass/Vol]33.5 g/wHGjvurq73-24UkvFoopko [place] HospitalComment on above:Performed By: #### TSHR, 47209-6, CBCA, CMP, 2131-12 #### [facility] ([id number]) [address] [place], [place] [address]MSW (RBC) [Entitic vol]92 yOSsxcsq56-184AimLkxnws [place] HospitalComment on above:Performed By: #### TSHNakia, 70656-8, CBCA, CMP, 2131-12 #### [facility] ([id number]) [address], [address] [place], [place] [address]Iqxpccglz (Bld) [#/Vol]0.7 10*3/uLNormal0-0.9[facility] HospitalComment on above:Performed By: #### TSHR, 87292-4, CBCA, CMP, 2131-12 #### [facility] ([id number]) [address] [place], [place] [address]Keltynuht/100 WBC (Bld)8.5 %[facility] Comment on above:Performed By: #### TSHR, 33356-0, CBCA, CMP, 2131-12 #### [facility] ([id number]) [address] [place], [place] [address]Cafalsbpkpn/100 WBC (Bld)46.2 %[facility] Comment on above:Performed By: #### TSHR, 93199-5, CBCA, CMP, 2131-12 #### [facility] ([id number]) [address], [address] [place], [place] [address]Tukscmtm mean volume (Bld) [Entitic vol]8.2 fLNormal7-12 [facility] HospitalComment on above:Performed By: #### RENNY, 11972-7, CBCA, CMP, 2131-12 #### [facility] ([id number]) [address], [address] [place], [place] [address]Thierglyy (Bld) [#/Vol]175 10*3/zHGrhsfy148-704XzjJxyobf [place] HospitalComment on above:Performed By: #### RENNY, 59711-6, CBCA, CMP, 2131-12 #### [facility] ([id number]) [address] [place], [place] [address]CVG COUNT4.80 X10E12/LNormal4.10-5.70[facility] Comment on above:Performed By: #### RENNY, 26038-0, CBCA, CMP, 2131-12 #### [facility] ([id number]) [address] [place], [place] [address]TSL (Bld) [#/Vol]8.6 10*3/uLNormal4.0-11.0[facility] HospitalComment on above:Performed By: #### RENNY, 86397-3, CBCA, CMP, 2131-12 #### [facility] ([id number]) [address], [address] [place], [place] [address]SAI auto differentialon 61-02-6420Cgaovrdxc (Bld) [#/Vol]0 10*3/uLProMedica Health SystemBasophils/100 WBC (Bld)0.5 %ProMedica Health SystemEosinophils (Bld) [#/Vol]0.2 10*3/uLProMedica Health SystemEosinophils/100 WBC (Bld)2.7 %ProMedica Health SystemErythrocyte distribution width (RBC) [Ratio]13.9 %11.5 - 15.0 %ProMedica Health SystemHematocrit (Bld) [Volume fraction]44.3 %39 - 49 %ProMedica Health SystemHemoglobin (Bld) [Mass/Vol]14.9 g/dL13.0 - 17.0 g/dLUniversity Hospitals Geauga Medical CenterInterpretation and review of laboratory resultsAbnormalUniversity Hospitals Geauga Medical CenterLymphocytes (Bld) [#/Vol]3.6 10*3/uLHighUniversity Hospitals Geauga Medical CenterLymphocytes/100 WBC (Bld)42.1 %[facility]H (RBC) [Entitic mass]31 pg27 - 34 White HospitalM[facility] (RBC) [Mass/Vol]33.5 g/dL32 - 36 g/dLUniversity Hospitals Geauga Medical CenterMCV (RBC) [Entitic vol]92 fL80 - 100 [facility]woodMonocytes (Bld) [#/Vol]0.7 10*3/uL [facility]aug[facility] Medical CenterMonocytes/100 WBC (Bld)8.5 %[facility] Neutrophils (Bld) [#/Vol]4 10*3/uLUniversity Hospitals Geauga Medical CenterNeutrophils/100 WBC (Bld)46.2 %[facility] Geauga Medical CenterPlatelet mean volume (Bld) [Entitic vol]8.2 fL 7 - 12 [facility] KirkwoodPlatelets (Bld) [#/Vol]175 10*3/uLUniversity Hospitals Geauga Medical CenterRBC (Bld) [#/Vol]4.8 10*6/[facility] SystemWBC corrected for nucl RBC Auto (Bld) [#/Vol]8.6[facility] COMPREHENSIVE METABOLIC PANELon [id number] [Mass/Vol]4.3 g/dLNormal 3.2-5.3PWayne HealthCare Main CampusComment on above:Performed By: #### TSHR, 60058- 1, CBCA, CMP, 2131-12 #### [facility] ([id number]) [address] [place], [place] [address]OMX [Catalytic activity/Vol]51 U/[id number] Clinic Marymount HospitalComment on above:Performed By: #### TSHR, 96185-2, CBCA, CMP, 2131-12 #### [facility] ([id number]) [address], [address] [place], [place] [address]MIJ [Catalytic activity/Vol]29 U/LNormal0-40Pro[facility] Saint Paul HospitalComment on above:Performed By: #### RENNY, 88851-7, CBCA, CMP, 2131-12 #### [facility] ([id number]) [address], [address] [place], [place] [address]Gelvv gap [Moles/Vol]9 mmol/LNormal5-15[facility] Comment on above:Performed By: #### RENNY, 47840-8, CBCA, CMP, 2131-12 #### [facility] ([id number]) [address], [address] [place], [place] [address]YIL [Catalytic activity/Vol]29 U/LNormal0-41ProMer[facility] Health [facility] HospitalComment on above:Performed By: #### RENNY, 61594-3, CBCA, CMP, 2131-12 #### [facility] ([id number]) [address], [address] [place], [place] [address]Vwaajxfap [Mass/Vol]0.5 mg/dLNormal0.3-1.2[facility] Paul HospitalComment on above:Performed By: #### RENNY, 42866-9, CBCA, CMP, 2131-12 #### [facility] ([id number]) [address], [address] [place], [place] [address]Rnyofpt [Mass/Vol]9.3 mg/dLNormal8.5-10.5Pro[facility] Paul HospitalComment on above:Performed By: #### MOISÉSR, 21000-6, CBCA, CMP, 2131-12 #### [facility] ([id number]) [address], [address] [place], [place] [address]Dloouipe [Moles/Vol]103 mmol/AQygrjs04-959YkoBqpgkf Saint Paul HospitalComment on above:Performed By: #### RENNY, 75576-2, CBCA, CMP, 2131-12 #### [facility] ([id number]) [address] [address] [place], [place] [address]IV9 [Moles/Vol]24 mmol/HSkxioj60-02UolPfcznpWayne HealthCare Main Campus Comment on above:Performed By: #### RENNY, 29625-7, CBCA, CMP, 2131-12 #### [facility] ([id number]) [address] [address] [place], [place] [address]Ajoabogkxt [Mass/Vol]1.15 mg/dLNormal0.60-1.30ProDayton Va Medical CenterComment on above:Result Comment: METHOD TRACEABLE TO IDMS STANDARD Performed By: #### RENNY 54314-4, CBCA, CMP, 2131-12 #### [facility] ([id number]) [address] [address] [place], [place] [address]VZU/1.73 sq M.predicted among non-blacks MDRD (S/P/Bld) [Vol rate/Area]69 mL/min/{1.73_m2}Normal>59ProDayton Va Medical CenterComment on above: Result Comment: Reported eGFR is based on the CKD-EPI 2020 equation that does not use a race coefficient.Performed By: #### RENNY 66082-3, CBCA, CMP, 2131-12 #### [facility] ([id number]) [address] [address] [place], [place] [address]Wtpsitb [Mass/Vol]105 mg/uASngm84-35GnpKzqiaoCleveland Clinic Marymount Hospital Comment on above:Performed By: #### RENNY, 10459-4, CBCA, CMP, 2131-12 #### [facility] ([id number]) [address] [address] [place], [place] [address]Tblivcbui [Moles/Vol]3.9 mmol/LNormal3.5-5.0ProDayton Va Medical CenterComment on above:Performed By: #### Kathleen LAWSON31-1, CBCA, CMP, 2131-12 #### [facility] ([id number]) [address], [address] [place], [place] [address]Juhwmrm [Mass/Vol]7.9 g/dLNormal6.0-8.0[facility] Comment on above:Performed By: #### RENNY, 97694-5, CBCA, CMP, 2131-12 #### [facility] ([id number]) [address], [address] [place], [place] [address]Xhvqnw [Moles/Vol]136 mmol/AWpgpii533-476UlsOkdiwl [place]edo HospitalComment on above:Performed By: #### MOISÉSR, 91709-2, CBCA, CMP, 2131-12 #### [facility] ([id number]) [address] [place], [place] [address]Oopw nitrogen [Mass/Vol]16 mg/dLNormal5-27ProDayton Va Medical CenterComment on above:Performed By: #### RENNY, 98328-4, CBCA, CMP, 2131-12 #### [facility] ([id number]) [address] [place], [place] [address]Pbquiskko (Vitamin B12) [Mass/Vol]on 40-55-0961QelBofzjf Health SystemComprehensive metabolic panelon 10-06-5919Vsunfaw [Mass/Vol]4.3 g/dL3.2 - 5.3 g/dLProMedica Health SystemALP [Catalytic activity/Vol]51 U/L39 - 130 U/L [facility] Health SystemALT No additional P-5'-P [Catalytic activity/Vol]29 U/L0 - 40 U/LProMedica Health SystemAnion gap [Moles/Vol]9 mmol/L5 - 15 mmol/L [facility] Health SystemAST [Catalytic activity/Vol]29 U/L0 - 41 U/LProMedica Health SystemBilirubin [Mass/Vol]0.5 mg/dL0.3 - 1.2 mg/dLProMedica Health System Calcium [Mass/Vol]9.3 mg/dL8.5 - 10.5 mg/dLUniversity Hospitals Geauga Medical CenterChloride [Moles/Vol]103 mmol/L98 - 109 mmol/[facility] SystemCO2 [Moles/Vol]24 mmol/L22 - 32 mmol/[facility] HospitalCreatinine [Mass/Vol]1.15 mg/dL0.60 - 1.30 mg/dLUniversity Hospitals Geauga Medical CenterComment on above:METHOD TRACEABLE TO [facility] STANDARDeGFR (CKD-EPI)non-race ouvhmmdby37- PINSaint John's Regional Health CenterComment on above: Reported eGFR is based on the CKD-EPI 2020 equation that does not use a race coefficient. Glucose [Mass/Vol]105 mg/dDLmol67 - 99 mg/dLUniversity Hospitals Geauga Medical CenterPotassium [Moles/Vol]3.9 mmol/L3.5 - 5.0 mmol/[facility]caraw[facility] HospitalProtein [Mass/Vol] 7.9 g/dL6.0 - 8.0 g/dLColumbus Regional Healthcare Systemodium [Moles/Vol]136 mmol/L134 - 146 mmol/[facility]caraw[facility] HospitalUrea nitrogen [Mass/Vol]16 mg/dL5 - 27 mg/dL [facility] Geauga Medical CenterLipid 1996 panelon 60-68-6287Bxrspiosynt [Mass/Vol]125 mg/vVWux468 - 200 mg/dLUniversity Hospitals Geauga Medical CenterCholesterol in HDL [Mass/Vol]41 mg/dL39 - PINF mg/dLUniversity Hospitals Geauga Medical CenterComment on above: HDL <40 mg/dL - High Risk HDL > or = 40mg/dL- Desirable HDL >60 mg/dL - Negative Risk Cholesterol in LDL [Mass/Vol]50 mg/dLNINF - 130 mg/dLUniversity Hospitals Geauga Medical Center Comment on above: LDL <100 mg/dL - Desirable LDL >160 mg/dL - High Risk Cholesterol in VLDL [Mass/Vol]34 mg/dLHigh0 - 30 mg/dLUniversity Hospitals Geauga Medical Center Cholesterol.total/Cholesterol in HDL [Mass ratio]3 {ratio}1.0 - 5.0ProOhiohealth Southeastern Medical CenterTriglyceride [Mass/Vol]170 mg/jUZfzx41 - 150 mg/dLProOhiohealth Southeastern Medical CenterCholesterol [Mass/Vol]125 mg/yIAyt445-184KatYgkpfsDayton Va Medical CenterComment on above:Performed By: #### RENNY, 61712-3, CBCA, CMP, 2131-12 #### [facility] ([id number]) [address] [place], [place] [address]Mmhibbknmed in HDL [Mass/Vol]41 mg/dLNormal>39ProDayton Va Medical CenterComment on above:Result Comment: HDL <40 mg/dL - High Risk HDL > or = 40mg/dL- Desirable HDL >60 mg/dL - Negative Risk Performed By: #### RENNY, 29634-5, CBCA, CMP, 2131-12 #### [facility] ([id number]) [address] [place], [place] [address]Ryhnaztiuko in LDL [Mass/Vol]50 mg/dLNormal<130ProDayton Va Medical CenterComment on above:Result Comment: LDL <100 mg/dL - Desirable LDL >160 mg/dL - High Risk Performed By: #### RENNY, 00531-0, CBCA, CMP, 2131-12 #### [facility] ([id number]) [address] [place], [place] [address]Zbrrlplmvyq in VLDL [Mass/Vol]34 mg/dLHigh0-30ProDayton Va Medical CenterComment on above:Performed By: #### TSHR, 66417-8, CBCA, CMP, 2131-12 #### [facility] ([id number]) [address] [place] [address], [address] [address]CZIBKCRCLVX:HDL3.7Xzqhto5.0-5.0ProDayton Va Medical CenterComment on above:Performed By: #### TSHR, 00010-6, CBCA, CMP, 2131-12 #### [facility] ([id number]) [address] [place] [address], [address] [address]Zaaxdsuvvcja [Mass/Vol]170 mg/ePPwls42-309JolSajhjrDayton Va Medical CenterComment on above:Performed By: #### TSHR, 93774-2, CBCA, CMP, 2131-12 #### [facility] ([id number]) [address] [place] [address], [address] [address]Ii Panel Informationon 26-65-0416Qnxlscnewpdpqh and review of laboratory resultsAbnormalProOhiohealth Southeastern Medical CenterProOhiohealth Southeastern Medical CenterProstate specific Ag [Mass/Vol]on 19-47-7971IlcMaaghtUniversity Hospitals Geauga Medical CenterPSA SCREEN0.12 ng/mL Normal0.00-4.00C[facility] Clinic Marymount HospitalComment on above:Result Comment: The method used for this test is Crystal [place] DXI chemiluminescent immunoassay. Values obtained by different assay methods cannot be used interchangeably.Performed By: #### 2857-1 #### [facility] ([id number]) [address] [place] [address], [address] [address]Cfptrunkl specific antigen screenon 47-29-9730Zvatnncu specific Ag [Mass/Vol]0.12 ng/mL0.00 - 4.00 ng/mLUniversity Hospitals Geauga Medical CenterComment on above: The method used for this test is Crystal [place] DXI chemiluminescent immunoassay. Values obtained by different assay methods cannot be used interchangeably. TSH WITH REFLEXon 92-24-9643GMJ7.30 uIU/mLNormal0.49-4.67C[facility] Clinic Marymount HospitalComment on above:Performed By: #### TSHR, 23623-7, CBCA, CMP, 2131-12 #### [facility] ([id number]) [address] [place], [place] [address]YBC with Reflexon 17-64-4734VTY Qn2.3 m[IU]/LProMedKing's Daughters Medical Center Ohio SystemProOhiohealth Southeastern Medical CenterVITAMIN B12on 77-51-1168Fyiealrho (Vitamin B12) [Mass/Vol]525 pg/oRVoxfzy842-451ReqMnzuvw [place]edo HospitalComment on above: Performed By: #### TSHR, 83013-7, CBCA, CMP, 2131-12 #### [facility] ([id number]) [address] [place], [place] [address]Rimldnt B12on 95-72-9020Pbfivrnlx (Vitamin B12) [Mass/Vol]525 pg/mL180 - 914 pg/mLUniversity Hospitals Geauga Medical CenterAlanine aminotransferase [Enzymatic activity/volume] in Serum or PlasmaOrdered By: Prince Velazquez on 44-61-5519WSQ [Catalytic activity/Vol]Alanine aminotransferase [Enzymatic activity/volume] in Serum or Plasma7-52[facility] TroyAlbumin [Mass/volume] in Serum or Plasma by Bromocresol green (BCG) dye binding methoOrdered By: Prince Velazquez on 21-97-8422Gnvsnyc BCG dye [Mass/Vol]Albumin [Mass/volume] in Serum or Plasma by Bromocresol green (BCG) dye binding metho3.5-5.7FCleveland Clinic Marymount HospitalAlkaline phosphatase [Enzymatic activity/volume] in Serum or PlasmaOrdered By: Prince Velazquez on 76-62-2750BQW [Catalytic activity/Vol] Alkaline phosphatase [Enzymatic activity/volume] in Serum or Vknwcm98-176 [facility] TroyAspartate aminotransferase [Enzymatic activity/volume] in Serum or PlasmaOrdered By: Prince Velazquez on 04-81-3603KUT [Catalytic activity/Vol]Aspartate aminotransferase [Enzymatic activity/volume] in Serum or Hvzihm49-38GoocvezfwKettering Health TroyBasophils Auto (Bld) [#/Vol]Ordered By: Prince Velazquez on 98-56-6650Hjxmwdozo (Bld) [#/Vol]Automated basophil count0.0-0.2FCleveland Clinic Marymount HospitalBasophils/100 WBC Auto (Bld)Ordered By: Prince Velazquez on 81-17-6434Kdttvhyak/100 WBC (Bld)Automated basophil %.[facility] TroyBilirubin.total [Mass/volume] in Serum or PlasmaOrdered By: Prince Velazquez on 33-54-6446Usvaysoqy [Mass/Vol] Bilirubin.total [Mass/volume] in Serum or Plasma0.3-1.0[facility] TroyCalcium [Mass/volume] in Serum or PlasmaOrdered By: Prince Velazquez on 09-80-5883Fixxngu [Mass/Vol]Calcium [Mass/volume] in Serum or Plasma8.6-10.3 [facility] TroyCarbon dioxide, total [Moles/volume] in Serum or PlasmaOrdered By: Prince Velazquez on 52-79-4437WM4 [Moles/Vol]Carbon dioxide, total [Moles/volume] in Serum or Xswgpc67.0-31.0[facility] TroyChloride [Moles/volume] in Serum or PlasmaOrdered By: Prince Velazquez on 68-83-8347Oclrqyly [Moles/Vol]Chloride [Moles/volume] in Serum or Qtvvuz63-102 [facility] TroyComplete Blood Count Auto Diffon 07-03-2024 Basophils (Bld) [#/Vol]0.1 10*3/uLNormal0.0-0.2[facility] Comment on above:Performed By: #### CBC, CMP, ESR #### [facility] [address] [place] [address] USABasophils/100 WBC (Bld)0.7 %Normal.The [facility] Physician GroupComment on above:Performed By: #### CBC, CMP, ESR #### [facility] [address] [place] [address] USAEosinophils (Bld) [#/Vol]0.3 10*3/uLNormal0.0-0.45The [facility] Physician GroupComment on above:Performed By: #### CBC, CMP, ESR #### [place] [address] USAEosinophils/100 WBC (Bld)3.1 %Normal.The [facility] Physician GroupComment on above:Performed By: #### CBC, CMP, ESR #### [place] [address] USAErythrocyte distribution width (RBC) [Ratio]13.3 %Normal 12.0-14.8The [facility] Physician GroupComment on above:Performed By: #### CBC, CMP, ESR #### [place] [address] USAHematocrit (Bld) [Volume fraction]43.0 %Olppbm76.8-50.0The [facility] Physician GroupComment on above:Performed By: #### CBC, CMP, ESR #### [place] [address] USAHemoglobin (Bld) [Mass/Vol]14.6 g/xPUvnlog64.0-17.0The [facility]ician GroupComment on above:Performed By: #### CBC, CMP, ESR #### [place] [address] USALymphocytes (Bld) [#/Vol]2.8 10*3/uLNormal1.00-4.8The [facility] Physician GroupComment on above:Performed By: #### CBC, CMP, ESR #### [place] [address] USALymphocytes/100 WBC (Bld)33.4 %Normal.The [facility] Physician GroupComment on above:Performed By: #### CBC, CMP, ESR #### [place] [address] USAMCH (RBC) [Entitic mass]31.2 ylXucavz40.5-35.2The [facility] Physician GroupComment on above:Performed By: #### CBC, CMP, ESR #### [address] [place] [address] USAMCV (RBC) [Entitic vol]91.6 tYYygumo72.5-101The [facility] Physician GroupComment on above:Performed By: #### CBC, CMP, ESR #### [place] [address] USAMean Corpuscular HGB Conc34.0 g/gYPolrex96.5-35.6The [facility] Physician GroupComment on above:Performed By: #### CBC, CMP, ESR #### [place] [address] USAMonocytes (Bld) [#/Vol]1.0 10*3/uLHigh0.0-0.8The [facility] Physician GroupComment on above:Performed By: #### CBC, CMP, ESR #### [place] [address] USAMonocytes/100 WBC (Bld)11.3 %Normal.The [facility] Physician GroupComment on above:Performed By: #### CBC, CMP, ESR #### [place] [address] USANeutrophils (Bld) [#/Vol]4.4 10*3/uLNormal1.8-7.7The [facility] Physician GroupComment on above:Performed By: #### CBC, CMP, ESR #### [place] [address] USANeutrophils/100 WBC (Bld)51.5 %Normal.The [facility] Physician GroupComment on above:Performed By: #### CBC, CMP, ESR #### [place] [address] USANRBC%0.1 /100{WBC}Normal0-0.5The [facility] Comment on above:Performed By: #### CBC, CMP, ESR #### [place] [address] USAPlatelet mean volume (Bld) [Entitic vol]7.7 fLNormal 6.6-10.1The [facility] Physician GroupComment on above:Performed By: #### CBC, CMP, ESR #### [place] [address] USAPlatelets (Bld) [#/Vol]160 10*3/eXPtothr468-953Bxw [facility]ician GroupComment on above:Performed By: #### CBC, CMP, ESR #### [place] [address] USARBC (Bld) [#/Vol]4.69 10*6/uLNormal3.90-5.60The [facility]ician GroupComment on above:Performed By: #### CBC, CMP, ESR #### [place] [address] USAWBC (Bld) [#/Vol]8.5 10*3/uLNormal4.1-10.5The [facility] Physician GroupComment on above:Performed By: #### CBC, CMP, ESR #### [place] [address] USAComprehensive Metabolic Panelon 36-85-2443Pzarzsx [Mass/Vol]4.1 g/dLNormal3.5-5.7The [facility] Physician GroupComment on above: Performed By: #### CBC, CMP, ESR #### [place] [address] USAAlbumin/Globulin [Mass ratio]1.1 {ratio}NormalThe [facility] HospitalComment on above:Performed By: #### CBC, CMP, ESR #### [place] [address] USAALP [Catalytic activity/Vol]53 U/MCsbotl56-263Aoe [facility] Physician GroupComment on above:Result Comment: PERFORMED BY: [place] [address] PATHOLOGIST CASINO CASHIER LILA MCINTYRE M.D.Performed By: #### CBC, CMP, ESR #### [place] [address] USAALT [Catalytic activity/Vol]27 U/LNormal7-52The [facility] Physician GroupComment on above:Performed By: #### CBC, CMP, ESR #### [facility] [address] [place] [address] USAAnion gap [Moles/Vol]9.6 mmol/LNormal6.0-15.0The [facility] Physician GroupComment on above:Performed By: #### CBC, CMP, ESR #### [facility] [address] [place] [address] USAAST [Catalytic activity/Vol]28 U/PQssriv45-45Svu [facility] Physician GroupComment on above:Performed By: #### CBC, CMP, ESR #### [facility] [address] [place] [address] USABilirubin [Mass/Vol]0.7 mg/dLNormal0.3-1.0The [facility] Physician GroupComment on above:Performed By: #### CBC, CMP, ESR #### [facility] [address] [place] [address] USACalcium [Mass/Vol]9.0 mg/dLNormal8.6-10.3The [facility] Physician GroupComment on above:Performed By: #### CBC, CMP, ESR #### [facility] [address] [place] [address] USAChloride [Moles/Vol]102 mmol/WHdbxis81-122Fmy [facility] Physician GroupComment on above:Performed By: #### CBC, CMP, ESR #### [facility] [address] [place] [address] USACO2 [Moles/Vol]26.9 mmol/EEqrcqy65.0-31.0The [facility] Physician GroupComment on above:Performed By: #### CBC, CMP, ESR #### [facility] [address] [place] [address] USACreatinine [Mass/Vol]1.17 mg/dLNormal0.70-1.30The [facility]ician GroupComment on above:Performed By: #### CBC, CMP, ESR #### [facility] [address] [place] [address] USAGFR/1.73 sq M.predicted MDRD (S/P/Bld) [Vol rate/Area] mL/min/{1.73_m2}NormalThe [facility] Physician GroupComment on above:Performed By: #### CBC, CMP, ESR #### [facility] [address] [place] [address] USAGlobulin (S) [Mass/Vol]3.7 g/dLNormalThe [facility] Physician GroupComment on above:Performed By: #### CBC, CMP, ESR #### [place] [address] USAGlucose [Mass/Vol]88 mg/cQPrfevi32-856Wdm [facility] Physician GroupComment on above:Result Comment: Random Glucose Reference Range is dependent on time and content of last meal. Glucose of more than 200 mg/dL in a nonstressed, ambulatory subject supports the diagnosis of Diabetes Mellitus. ADA recommended reference rangePerformed By: #### CBC, CMP, ESR #### [place] [address] USAPotassium [Moles/Vol]4.5 mmol/LNormal3.5-5.1The [facility] Physician GroupComment on above:Performed By: #### CBC, CMP, ESR #### [place] [address] USAProtein [Mass/Vol]7.8 g/dLNormal6.4-8.9The [facility] Physician GroupComment on above:Performed By: #### CBC, CMP, ESR #### [place] [address] USASodium [Moles/Vol]134 mmol/FTzk668-925Aor [facility] Physician GroupComment on above:Performed By: #### CBC, CMP, ESR #### [facility] [address] [place] [address] USAUrea nitrogen [Mass/Vol]13 mg/dLNormal7-25The [facility] Physician GroupComment on above:Performed By: #### CBC, CMP, ESR #### [place] [address] USACreatinine [Mass/volume] in Serum or PlasmaOrdered By: Prince Velazquez on 68-97-1945Rtiokpcstb [Mass/Vol]Creatinine [Mass/volume] in Serum or Plasma0.70-1.30[facility] TroyEosinophils Auto (Bld) [#/Vol]Ordered By: Prince Velazquez on 88-38-8748Puslhpccvuw (Bld) [#/Vol] Automated eosinophil count0.0-0.45[facility] Eosinophils/100 WBC Auto (Bld)Ordered By: Prince Velazquez on 07-03-2024 Eosinophils/100 WBC (Bld)Automated eosinophil %.[facility] TroyErythrocyte Sedimentation Rateon 86-05-1721SPL (Bld) [Velocity]23 mm/hHigh 0-19The [facility] Physician GroupComment on above:Result Comment: PERFORMED BY: [place] [address] PATHOLOGIST CASINO CASHIER LILA MCINTYRE M.D.Performed By: #### CBC, CMP, ESR #### [place] [address] USAErythrocyte distribution width Auto (RBC) [Ratio]Ordered By: Prince Velazquez on 27-88-0311Mycglqfzctm distribution width (RBC) [Ratio] Erythrocyte distribution width [Ratio] by Automated count12.0-14.8[facility] TroyErythrocyte sedimentation rate by Photometric method Ordered By: Prince Velazquez on 51-91-4471UOT Photometric method (Bld) [Velocity] Erythrocyte sedimentation rate by Photometric methodHigh0-19[facility] TroyGlobulin Calc (S) [Mass/Vol]Ordered By: Prince Velazquez on 14-73-2422Mtdrvqlw (S) [Mass/Vol]Serum globulin measurement by calculation (mass/volume)[facility] TroyGlucose [Mass/volume] in Serum or PlasmaOrdered By: Prince Velazquez on 28-65-0327Kaueofi [Mass/Vol]Glucose [Mass/volume] in Serum or Qiwtqt87-720TodfrsfciKettering Health TroyComment on above:ADA recommended reference rangeRandom Glucose Reference Range is dependent on time and content of last meal. Glucose of more than 200 mg/dL in a nonstressed, ambulatory subject supports the diagnosisof Diabetes Mellitus. Hematocrit Auto (Bld) [Volume fraction]Ordered By: Prince Velazquez on 07-03-2024 Hematocrit (Bld) [Volume fraction]Hematocrit [Volume Fraction] of Blood by Automated count38.8-50.0[facility] TroyHemoglobin [Mass/volume] in BloodOrdered By: Prince Velazquez on 75-47-8274Bqbahpflbx (Bld) [Mass/Vol]Hemoglobin [Mass/volume] in Blood13.0-17.0[facility] TroyLeukocytes [#/volume] corrected for nucleated erythrocytes in Blood by Automated counOrdered By: Prince Velazquez on 05-44-0861GQH corrected for nucl RBC Auto (Bld) [#/Vol]Leukocytes [#/volume] corrected for nucleated erythrocytes in Blood by Automated coun4.1-10.5FCleveland Clinic Marymount HospitalLymphocytes Auto (Bld) [#/Vol]Ordered By: Prince Velazquez on 81-04-5671Pnutyinxeeg (Bld) [#/Vol]Lymphocytes [#/volume] in Blood by Automated count1.00-4.8[facility] TroyLymphocytes/100 WBC Auto (Bld)Ordered By: Prince Velazquez on 37-33-3706Eryoopuuxyh/100 WBC (Bld)Lymphocytes/100 leukocytes in Blood by Automated count.[facility] TroyMCH Auto (RBC) [Entitic mass] Ordered By: Prince Velazquez on 14-60-9053DPC (RBC) [Entitic mass]MCH [Entitic mass] by Automated count27.5-35.2FCleveland Clinic Marymount HospitalMCHC Auto (RBC) [Mass/Vol]Ordered By: Prince Velazquez on 55-15-1966LJTW (RBC) [Mass/Vol] MCHC [Mass/volume] by Automated count32.5-35.6FCleveland Clinic Marymount Hospital MCV Auto (RBC) [Entitic vol]Ordered By: Prince Velazquez on 45-36-4758KVS (RBC) [Entitic vol]MCV [Entitic volume] by Automated count83.5-101[facility] TroyMonocytes Auto (Bld) [#/Vol]Ordered By: Prince Velazquez on 47-28-5073Llfaqoyni (Bld) [#/Vol]Automated blood monocyte countHigh0.0-0.8 [facility] TroyMonocytes/100 WBC Auto (Bld)Ordered By: Prince Velazquez on 47-02-0501Cbkzqjxrf/100 WBC (Bld)Automated monocyte %.[facility] TroyNeutrophils Auto (Bld) [#/Vol]Ordered By: Prince Velazquez on 99-64-0344Ppzklkwvzji (Bld) [#/Vol]Neutrophils [#/volume] in Blood by Automated count1.8-7.7FCleveland Clinic Marymount HospitalNeutrophils/100 WBC Auto (Bld)Ordered By: Prince Velazquez on 88-41-8639Ddgjsshqhbi/100 WBC (Bld)Automated neutrophil %.[facility] TroyNo Panel InformationOrdered By: Prince Velazquez on 73-58-1491Stbzugllo GFR (CKD-EPI)> 60.0 mL/MinKettering Health TroyPharmacy Creatinine Clearance (ChemN/AFCleveland Clinic Marymount HospitalNucleated erythrocytes [Presence] in Blood by Automated count Ordered By: Prince Velazquez on 99-58-8429Rjjeqribt RBC Auto Ql (Bld)Nucleated erythrocytes [Presence] in Blood by Automated count0-0.5FCleveland Clinic Marymount HospitalPlatelet mean volume Auto (Bld) [Entitic vol]Ordered By: Prince Velazquez on [id number] mean volume (Bld) [Entitic vol]Platelet mean volume [Entitic volume] in Blood by Automated count6.6-10.1FCleveland Clinic Marymount HospitalPlatelets Auto (Bld) [#/Vol]Ordered By: Prince Velazquez on 07-03-2024 Platelets (Bld) [#/Vol]Platelets [#/volume] in Blood by Automated ferqr185-476 [facility] TroyPotassium [Moles/volume] in Serum or Plasma Ordered By: Prince Velazquez on 81-37-6325Rctgtxinj [Moles/Vol]Potassium [Moles/volume] in Serum or Plasma3.5-5.1FCleveland Clinic Marymount HospitalProtein [Mass/volume] in Serum or PlasmaOrdered By: Prince Velazquez on 54-31-7207Wsaalen [Mass/Vol]Protein [Mass/volume] in Serum or Plasma6.4-8.9[facility] TroyRBC Auto (Bld) [#/Vol]Ordered By: Prince Velazquez on 82-90-3057ZYQ (Bld) [#/Vol]Erythrocytes [#/volume] in Blood by Automated count3.90-5.60 [facility] Hospitalerum or plasma albumin/globulin mass ratio Ordered By: Prince Velazquez on 67-51-7455Qablzmp/Globulin [Mass ratio]Serum or plasma albumin/globulin mass ratioBrown Memorial Hospitalerum or plasma anion gap determinationOrdered By: Prince Velazquez on 44-74-1940Xemja gap [Moles/Vol]Serum or plasma anion gap determination6.0-15.0[facility] Hospitalodium [Moles/volume] in Serum or PlasmaOrdered By: Prince Velazquez on 55-80-6407Gxurks [Moles/Vol]Sodium [Moles/volume] in Serum or PlasmaLow 136-145[facility] TroyUrea nitrogen [Mass/volume] in Serum or PlasmaOrdered By: Prince Velazquez on 91-45-3150Qpui nitrogen [Mass/Vol]Urea nitrogen [Mass/volume] in Serum or Plasma7-25[facility] WBC Auto (Bld) [#/Vol]Ordered By: Prince Velazquez on 06-52-2058BXD (Bld) [#/Vol] Leukocytes [#/volume] in Blood by Automated count4.1-10.5FCleveland Clinic Marymount HospitalPOCT EKGon 07-17-1567NdwCkeope Health SystemPOCT EKGon 04-16-2024 [facility] CenterComplete Blood Count Auto Diffon 51-20-5705Jozirgulp (Bld) [#/Vol]0.2 10*3/uLNormal0.0-0.2The [facility] Physician GroupComment on above:Performed By: #### CMP, ESR, CBC #### [facility] [address] [place] [address] USABasophils/100 WBC (Bld)2.7 %Normal.The [facility] Physician GroupComment on above:Performed By: #### CMP, ESR, CBC #### [place] [address] USAEosinophils (Bld) [#/Vol]0.2 10*3/uLNormal0.0-0.45The [facility] Physician GroupComment on above:Performed By: #### CMP, ESR, CBC #### [place] [address] USAEosinophils/100 WBC (Bld)3.0 %Normal.The [facility] Physician GroupComment on above:Performed By: #### CMP, ESR, CBC #### [place] [address] USAErythrocyte distribution width (RBC) [Ratio]13.8 %Normal 12.0-14.8The [facility] Physician GroupComment on above:Performed By: #### CMP, ESR, CBC #### [place] [address] USAHematocrit (Bld) [Volume fraction]43.6 %Wyrdec24.8-50.0The [facility] Physician GroupComment on above:Performed By: #### CMP, ESR, CBC #### [place] [address] USAHemoglobin (Bld) [Mass/Vol]14.8 g/vSAtsegk76.0-17.0The [facility] Physician GroupComment on above:Performed By: #### CMP, ESR, CBC #### [place] [address] USALymphocytes (Bld) [#/Vol]2.4 10*3/uLNormal1.00-4.8The [facility] Physician GroupComment on above:Performed By: #### CMP, ESR, CBC #### [place] [address] USALymphocytes/100 WBC (Bld)33.5 %Normal.The [facility] Physician GroupComment on above:Performed By: #### CMP, ESR, CBC #### [address] [place] [address] USAMCH (RBC) [Entitic mass]31.0 ynUsetqx92.5-35.2The [facility] Physician GroupComment on above:Performed By: #### CMP, ESR, CBC #### [address]V (RBC) [Entitic vol]91.3 mSFtjyew22.5-101The [facility] Physician GroupComment on above:Performed By: #### CMP, ESR, CBC #### [place] [address] USAMean Corpuscular HGB Conc33.9 g/iZIfeeit28.5-35.6The [facility] Physician GroupComment on above:Performed By: #### CMP, ESR, CBC #### [place] [address] USAMonocytes (Bld) [#/Vol]0.6 10*3/uLNormal0.0-0.8The [facility] Physician GroupComment on above:Performed By: #### CMP, ESR, CBC #### [place] [address] USAMonocytes/100 WBC (Bld)8.6 %Normal.The [facility] Physician GroupComment on above:Performed By: #### CMP, ESR, CBC #### [place] [address] USANeutrophils (Bld) [#/Vol]3.7 10*3/uLNormal1.8-7.7The [facility] Physician GroupComment on above:Performed By: #### CMP, ESR, CBC #### [place] [address] USANeutrophils/100 WBC (Bld)52.2 %Normal.The [facility] Physician GroupComment on above:Performed By: #### CMP, ESR, CBC #### [place] [address] USANRBC%0.1 /100{WBC}Normal0-0.5The [facility] Comment on above:Performed By: #### CMP, ESR, CBC #### [place] [address] USAPlatelet mean volume (Bld) [Entitic vol]8.1 fLNormal 6.6-10.1The [facility] Physician GroupComment on above:Performed By: #### CMP, ESR, CBC #### [place] [address] USAPlatelets (Bld) [#/Vol]165 10*3/pRBtuoic563-824Qkv [facility] Physician GroupComment on above:Performed By: #### CMP, ESR, CBC #### [place] [address] USARBC (Bld) [#/Vol]4.78 10*6/uLNormal3.90-5.60The [facility] Physician GroupComment on above:Performed By: #### CMP, ESR, CBC #### [place] [address] USAWBC (Bld) [#/Vol]7.1 10*3/uLNormal4.1-10.5The [facility] Physician GroupComment on above:Performed By: #### CMP, ESR, CBC #### [place] [address] USAComprehensive Metabolic Panelon 46-66-0224Fsshsyj [Mass/Vol]4.1 g/dLNormal3.5-5.7The [facility] Physician GroupComment on above: Performed By: #### CMP, ESR, CBC #### [place] [address] USAAlbumin/Globulin [Mass ratio]1.2 {ratio}NormalThe [facility] Physician GroupComment on above:Performed By: #### CMP, ESR, CBC #### [place] [address] USAALP [Catalytic activity/Vol]47 U/SFfdbis47-346Kvo [facility] Physician GroupComment on above:Result Comment: PERFORMED BY: [place] [address] PATHOLOGIST CASINO CASHIER LILA MCINTYRE M.D.Performed By: #### CMP, ESR, CBC #### [place] [address] USAALT [Catalytic activity/Vol]19 U/LNormal7-52The [facility] Physician GroupComment on above:Performed By: #### CMP, ESR, CBC #### [place] [address] USAAnion gap [Moles/Vol]12.5 mmol/LNormal6.0-15.0The [facility] Physician GroupComment on above:Performed By: #### CMP, ESR, CBC #### [place] [address] USAAST [Catalytic activity/Vol]21 U/QSzdjek12-72Puj [facility] Physician GroupComment on above:Performed By: #### CMP, ESR, CBC #### [place] [address] USABilirubin [Mass/Vol]0.7 mg/dLNormal0.3-1.0The [facility] Physician GroupComment on above:Performed By: #### CMP, ESR, CBC #### [place] [address] USACalcium [Mass/Vol]9.1 mg/dLNormal8.6-10.3The [facility] Physician GroupComment on above:Performed By: #### CMP, ESR, CBC #### [place] [address] USAChloride [Moles/Vol]106 mmol/KPgwpev92-341Ngc [facility] Physician GroupComment on above:Performed By: #### CMP, ESR, CBC #### [place] [address] USACO2 [Moles/Vol]23.8 mmol/TUtcvwp26.0-31.0The [facility] Physician GroupComment on above:Performed By: #### CMP, ESR, CBC #### [place] [address] USACreatinine [Mass/Vol]1.19 mg/dLNormal0.70-1.30The [facility] Physician GroupComment on above:Performed By: #### CMP, ESR, CBC #### [facility] [address] [place] [address] USAGFR/1.73 sq M.predicted MDRD (S/P/Bld) [Vol rate/Area] mL/min/{1.73_m2}NormalThe [facility] Physician GroupComment on above:Performed By: #### CMP, ESR, CBC #### [facility] [address] [place] [address] USAGlobulin (S) [Mass/Vol]3.4 g/dLNormalThe [facility] Physician GroupComment on above:Performed By: #### CMP, ESR, CBC #### [place] [address] USAGlucose [Mass/Vol]93 mg/nBCxjkhg49-037Lqu [facility] Physician GroupComment on above:Result Comment: Random Glucose Reference Range is dependent on time and content of last meal. Glucose of more than 200 mg/dL in a nonstressed, ambulatory subject supports the diagnosis of Diabetes Mellitus. ADA recommended reference rangePerformed By: #### CMP, ESR, CBC #### [place] [address] USAPotassium [Moles/Vol]4.3 mmol/LNormal3.5-5.1The [facility] Physician GroupComment on above:Performed By: #### CMP, ESR, CBC #### [place] [address] USAProtein [Mass/Vol]7.5 g/dLNormal6.4-8.9The [facility] Physician GroupComment on above:Performed By: #### CMP, ESR, CBC #### [place] [address] USASodium [Moles/Vol]138 mmol/MKhnhqe334-269Xxt [facility] Physician GroupComment on above:Performed By: #### CMP, ESR, CBC #### [place] [address] USAUrea nitrogen [Mass/Vol]18 mg/dLNormal7-25The [facility] Physician GroupComment on above:Performed By: #### CMP, ESR, CBC #### [facility] [address] [place] [id number] USAErythrocyte Sedimentation Rateon 45-60-6863QXR (Bld) [Velocity]19 mm/hNormal0-19The [facility] Physician GroupComment on above:Result Comment: PERFORMED BY: [place] [address] PATHOLOGIST CASINO CASHIER LILA MCINTYRE M.D.Performed By: #### CMP, ESR, CBC #### [facility] [address] [place] [address] USALipid Panelon 46-49-1770Wuzovhctzwi [Mass/Vol]119 mg/dLLow 140-200The [facility] Physician GroupComment on above:Result Comment: Chol less than 200 mg/dl low risk Chol 201-239 mg/dl borderline risk Chol 240 mg/dl and greater high riskPerformed By: #### MG, LIPID #### [address] [address] USACholesterol in HDL [Mass/Vol]43 mg/qGYkaraj86-87Eku [facility] Physician GroupComment on above:Result Comment: HDL CHOL ATP-III CLASSIFICATION Cardiovascular Risk HDL > or equal to 60 mg/dL LOW HDL < 40 mg/dL HIGHPerformed By: #### MG, LIPID #### [place] [id number] USACholesterol.total/Cholesterol in HDL [Mass ratio]2.8 {ratio}Normal<5.0The [facility] Physician GroupComment on above:Result Comment: PERFORMED BY: [place] [address] PATHOLOGIST CASINO CASHIER LILA MCINTYRE M.D.Performed By: #### MG, LIPID #### [address] [address] USALDL Cholesterol,Lfbdxktkud10 mg/dLNormal0-100The [facility] Physician GroupComment on above:Result Comment: LDL ATP III CLASSIFICATION LDL less than 100 mg/dL Optimal LDL 100-129 mg/dL Near or above optimal LDL 130-159 mg/dL Borderline high LDL 160-189 mg/dL High LDL greater than 189 mg/dL Very highPerformed By: #### MG, LIPID #### [facility] [address] [place] [address] USATriglyceride w/Amietg72 mg/dLNormal0-149The [facility] Physician GroupComment on above:Result Comment: TRIG ATP III CLASSIFICATION TRIG less than 150 mg/dL Normal TRIG 150-199 mg/dL Borderline high TRIG 200-500 mg/dL High TRIG greater than 500 mg/dL Very high Standard traceable to the Center for Disease Conrtrol and Prevention (CDC) test method.Performed By: #### MG, LIPID #### [facility] [address] [place] [address] USAVLDL ORXENRYHEMY42 mg/dLNormalThe [facility] Physician GroupComment on above:Performed By: #### MG, LIPID #### [facility] [address] [place] [address] USAMagnesiumon 31-35-3974Rotjunojb [Mass/Vol]1.9 mg/dLNormal 1.9-2.7The [facility] Physician GroupComment on above:Performed By: #### MG, LIPID #### [facility] [address] [place] [id number] USAAlanine aminotransferase [Enzymatic activity/volume] in Serum or PlasmaOrdered By: Prince Velazquez on 71-30-6577PWE [Catalytic activity/Vol]21 U/L7-52[facility] TroyAlbumin [Mass/volume] in Serum or Plasma by Bromocresol green (BCG) dye binding methoOrdered By: Prince Velazquez on 72-55-3580Xedehoc BCG dye [Mass/Vol]4.2 g/dL3.5-5.7FCleveland Clinic Marymount HospitalAlkaline phosphatase [Enzymatic activity/volume] in Serum or PlasmaOrdered By: Prince Velazquez on 67-16-3015OWF [Catalytic activity/Vol]55 U/L 34-104[facility] TroyAspartate aminotransferase [Enzymatic activity/volume] in Serum or PlasmaOrdered By: Prince Velazquez on 02-04-3924GCN [Catalytic activity/Vol]23 U/I79-54McemijovyKettering Health TroyBasophils Auto (Bld) [#/Vol]Ordered By: Prince Velazquez on 38-34-1950Auaiqkodn (Bld) [#/Vol]0.1 10*3/uL0.0-0.2FCleveland Clinic Marymount HospitalBasophils/100 WBC Auto (Bld)Ordered By: Prince Velazquez on 96-12-7462Lklawbbbk/100 WBC (Bld)0.9 %. [facility] TroyBilirubin.total [Mass/volume] in Serum or PlasmaOrdered By: Prince Velazquez on 85-42-7781Cfkispfts [Mass/Vol]0.6 mg/dL 0.3-1.0[facility] TroyCalcium [Mass/volume] in Serum or Plasma Ordered By: Prince Velazquez on 34-04-1254Jkmozvf [Mass/Vol]8.9 mg/dL8.6-10.3 [facility] TroyCarbon dioxide, total [Moles/volume] in Serum or PlasmaOrdered By: Prince Velazquez on 90-80-2826ZG2 [Moles/Vol]24.7 mmol/L 21.0-31.0[facility] TroyChloride [Moles/volume] in Serum or PlasmaOrdered By: Prince Velazquez on 87-68-6929Yeannobn [Moles/Vol]102 mmol/L 98-107[facility] TroyCreatinine [Mass/volume] in Serum or PlasmaOrdered By: Prince Velazquez on 61-83-8042Dgtxxzlblg [Mass/Vol]1.21 mg/dL 0.70-1.30[facility] TroyEosinophils Auto (Bld) [#/Vol]Ordered By: Prince Velazquez on 65-15-0114Behtqjzejuc (Bld) [#/Vol]0.2 10*3/uL0.0-0.45 [facility] TroyEosinophils/100 WBC Auto (Bld)Ordered By: Prince Velazquez on 99-69-4050Kylfngoiqzo/100 WBC (Bld)2.5 %.[facility] TroyErythrocyte distribution width Auto (RBC) [Ratio]Ordered By: Prince Velazquez on 31-57-1993Tnhcdoxonlr distribution width (RBC) [Ratio]13.5 % 12.0-14.8[facility] TroyErythrocyte sedimentation rate by Photometric methodOrdered By: Prince Velazquez on 38-00-1905PWL Photometric method (Bld) [Velocity]24 mm/hrHigh0-19[facility] TroyGlobulin Calc (S) [Mass/Vol]Ordered By: Prince Velazquez on 29-88-6217Hzoqjhjm (S) [Mass/Vol]3.4 g/dLKettering Health TroyGlucose [Mass/volume] in Serum or Plasma Ordered By: Prince Velazquez on 44-38-7546Pidjslp [Mass/Vol]82 mg/vV81-166 [facility] TroyComment on above:ADA recommended reference rangeRandom Glucose Reference Range is dependent on time and content of last meal. Glucose of more than 200 mg/dL in a nonstressed, ambulatory subject supports the diagnosisof Diabetes Mellitus.Hematocrit Auto (Bld) [Volume fraction]Ordered By: Prince Velazquez on 15-69-4890Eqtvybucmm (Bld) [Volume fraction]43.4 %38.8-50.0[facility] TroyHemoglobin [Mass/volume] in BloodOrdered By: Prince Velazquez on 80-73-8422Lpkadjlpvw (Bld) [Mass/Vol]14.7 g/dL13.0-17.0[facility] TroyLeukocytes [#/volume] corrected for nucleated erythrocytes in Blood by Automated coun Ordered By: Prince Velazquez on 18-73-5453HCR corrected for nucl RBC Auto (Bld) [#/Vol]8.7 10*3/uL4.1-10.5FCleveland Clinic Marymount HospitalLymphocytes Auto (Bld) [#/Vol]Ordered By: Prince Velazquez on 92-76-5376Wrjbghrbopy (Bld) [#/Vol] 2.7 10*3/uL1.00-4.8[facility] TroyLymphocytes/100 WBC Auto (Bld)Ordered By: Prince Velazquez on 08-64-3268Dinvieygdbq/100 WBC (Bld)30.8 %. [facility] TroyMCH Auto (RBC) [Entitic mass]Ordered By: Prince Velazquez on 90-07-0854XGX (RBC) [Entitic mass]31.2 pg27.5-35.2FCleveland Clinic Marymount HospitalMCHC Auto (RBC) [Mass/Vol]Ordered By: Prince Velazquez on 73-71-1612UEBY (RBC) [Mass/Vol]33.9 g/dL32.5-35.6FCleveland Clinic Marymount HospitalMCV Auto (RBC) [Entitic vol]Ordered By: Prince Velazquez on 70-68-1425CPV (RBC) [Entitic vol]92.1 fL83.5-101[facility] TroyMonocytes Auto (Bld) [#/Vol]Ordered By: Prince Velazquez on 38-09-2719Hjbwfyird (Bld) [#/Vol]0.8 10*3/uL0.0-0.8[facility] TroyMonocytes/100 WBC Auto (Bld)Ordered By: Prince Vealzquez on 18-19-2212Xydpraveb/100 WBC (Bld)9.1 %. [facility] TroyNeutrophils Auto (Bld) [#/Vol]Ordered By: Prince Velazquez on 96-46-0899Vkcxrzeuojy (Bld) [#/Vol]4.9 10*3/uL1.8-7.7FCleveland Clinic Marymount HospitalNeutrophils/100 WBC Auto (Bld)Ordered By: Prince Velazquez on 69-40-6217Cxvizscahse/100 WBC (Bld)56.7 %.[facility] No Panel InformationOrdered By: Prince Velazquez on 33-98-8536Vrovzybrx GFR (CKD-EPI)> 60.0 mL/MinKettering Health TroyPharmacy Creatinine Clearance (ChemN/AFCleveland Clinic Marymount HospitalNucleated erythrocytes [Presence] in Blood by Automated countOrdered By: Prince Velazquez on 12-06-2023 Nucleated RBC Auto Ql (Bld)0.1 /100{WBC}0-0.5FCleveland Clinic Marymount Hospital Platelet mean volume Auto (Bld) [Entitic vol]Ordered By: Prince Velazquez on 57-04-2567Ueotkigo mean volume (Bld) [Entitic vol]8.6 fL6.6-10.1FCleveland Clinic Marymount HospitalPlatelets Auto (Bld) [#/Vol]Ordered By: Prince Velazquez on 65-14-7010Ldkxuyhra (Bld) [#/Vol]166 10*3/xJ046-504AnvyuteshKettering Health TroyPotassium [Moles/volume] in Serum or PlasmaOrdered By: Prince Velazquez on 30-63-5011Pijyuqdsp [Moles/Vol]4.2 mmol/L3.5-5.1FCleveland Clinic Marymount HospitalProtein [Mass/volume] in Serum or PlasmaOrdered By: Prince Velazquez on 79-52-5114Anagwxm [Mass/Vol]7.6 g/dL6.4-8.9[facility] TroyRBC Auto (Bld) [#/Vol]Ordered By: Prince Velazquez on 22-31-6181AOJ (Bld) [#/Vol]4.72 10*6/uL3.90-5.60[facility] Memorial Hospitalerum or plasma albumin/globulin mass ratioOrdered By: Prince Velazquez on 12-06-2023 Albumin/Globulin [Mass ratio]1.2 {ratio}[facility] Memorial Hospitalerum or plasma anion gap determinationOrdered By: Prince Velazquez on 21-58-2482Szpfq gap [Moles/Vol]11.5 mmol/L6.0-15.0[facility] Hospitalodium [Moles/volume] in Serum or PlasmaOrdered By: Prince Velazquez on 43-85-8584Kxgepr [Moles/Vol]134 mmol/SBam152-143StsdjfdweKettering Health TroyUrea nitrogen [Mass/volume] in Serum or PlasmaOrdered By: Prince Velazquez on 52-87-0455Afzh nitrogen [Mass/Vol]21 mg/dL7-25[facility] TroyWBC Auto (Bld) [#/Vol]Ordered By: Prince Velazquez on 36-48-6492FIN (Bld) [#/Vol]8.7 10*3/uL 4.1-10.5FCleveland Clinic Marymount HospitalAlanine aminotransferase [Enzymatic activity/volume] in Serum or PlasmaOrdered By: Ese Villanueva on 88-21-7181QPL [Catalytic activity/Vol]22 U/L7-52[facility] TroyAlbumin [Mass/volume] in Serum or Plasma by Bromocresol green (BCG) dye binding metho Ordered By: Ese Villanueva on 49-78-8249Jqvkmxx BCG dye [Mass/Vol]4.2 g/dL 3.5-5.7FCleveland Clinic Marymount HospitalAlkaline phosphatase [Enzymatic activity/volume] in Serum or PlasmaOrdered By: Ese Villanueva on 67-60-9436JRM [Catalytic activity/Vol]49 U/C12-598IehgldriyKettering Health TroyAspartate aminotransferase [Enzymatic activity/volume] in Serum or PlasmaOrdered By: Ese Villanueva on 20-06-3349BCO [Catalytic activity/Vol]23 U/Y57-16CrcldczjhKettering Health TroyBasophils Auto (Bld) [#/Vol]Ordered By: Ese Villanueva on 29-51-7553Emikjjcru (Bld) [#/Vol]0.1 10*3/uL0.0-0.2FCleveland Clinic Marymount HospitalBasophils/100 WBC Auto (Bld)Ordered By: Ese Villanueva on 08-16-2023 Basophils/100 WBC (Bld)1.2 %.[facility] TroyBilirubin.total [Mass/volume] in Serum or PlasmaOrdered By: Ese Villanueva on 08-16-2023 Bilirubin [Mass/Vol]0.6 mg/dL0.3-1.0[facility] TroyCalcium [Mass/volume] in Serum or PlasmaOrdered By: Ese Villanueva on 83-44-6635Xeqrzvz [Mass/Vol]8.9 mg/dL8.6-10.3FCleveland Clinic Marymount HospitalCarbon dioxide, total [Moles/volume] in Serum or PlasmaOrdered By: Ese Villanueva on 08-16-2023 CO2 [Moles/Vol]23.4 mmol/L21.0-31.0[facility] TroyChloride [Moles/volume] in Serum or PlasmaOrdered By: Ese Villanueva on 08-16-2023 Chloride [Moles/Vol]104 mmol/X73-715JmcigpzdbKettering Health TroyCreatinine [Mass/volume] in Serum or PlasmaOrdered By: Ese Villanueva on 08-16-2023 Creatinine [Mass/Vol]1.16 mg/dL0.70-1.30[facility] Eosinophils Auto (Bld) [#/Vol]Ordered By: Ese Villanueva on 08-16-2023 Eosinophils (Bld) [#/Vol]0.2 10*3/uL0.0-0.45[facility] Eosinophils/100 WBC Auto (Bld)Ordered By: Ese Villanueva on 08-16-2023 Eosinophils/100 WBC (Bld)2.8 %.[facility] TroyErythrocyte distribution width Auto (RBC) [Ratio]Ordered By: Ese Villanueva on 08-16-2023 Erythrocyte distribution width (RBC) [Ratio]13.5 %12.0-14.8[facility] TroyErythrocyte sedimentation rate by Photometric methodOrdered By: Ese Villanueva on 30-75-7721BVI Photometric method (Bld) [Velocity]16 mm/hr0-19 [facility] TroyGlobulin Calc (S) [Mass/Vol]Ordered By: Ese Villanueva on 06-94-1737Ruvizxco (S) [Mass/Vol]2.9 g/dLKettering Health TroyGlucose [Mass/volume] in Serum or PlasmaOrdered By: Ese Villanueva on 06-26-6067Rzsioag [Mass/Vol]94 mg/mJ31-984DuwxdojsgKettering Health Troy Comment on above:ADA recommended reference rangeRandom Glucose Reference Range is dependent on time and content of last meal. Glucose of more than 200 mg/dL in a nonstressed, ambulatory subject supports the diagnosisof Diabetes Mellitus. Hematocrit Auto (Bld) [Volume fraction]Ordered By: Ese Villanueva on 08-16-2023 Hematocrit (Bld) [Volume fraction]41.6 %38.8-50.0[facility] TroyHemoglobin [Mass/volume] in BloodOrdered By: Ese Villanueva on 08-16-2023 Hemoglobin (Bld) [Mass/Vol]14.2 g/dL13.0-17.0[facility] Leukocytes [#/volume] corrected for nucleated erythrocytes in Blood by Automated counOrdered By: Ese Villanueva on 49-14-6219SBA corrected for nucl RBC Auto (Bld) [#/Vol]7.8 10*3/uL4.1-10.5FCleveland Clinic Marymount HospitalLymphocytes Auto (Bld) [#/Vol]Ordered By: Ese Villanueva on 43-40-1712Uvukgdekqdv (Bld) [#/Vol]2.7 10*3/uL1.00-4.8[facility] TroyLymphocytes/100 WBC Auto (Bld)Ordered By: Ese Villanueva on 40-04-8867Ibwuxtqipbc/100 WBC (Bld)33.9 %.[facility] Auto (RBC) [Entitic mass]Ordered By: Ese Villanueva on 34-85-7263ABR (RBC) [Entitic mass]31.2 pg27.5-35.2FCleveland Clinic Marymount HospitalMCHC Auto (RBC) [Mass/Vol]Ordered By: Ese Villanueva on 31-33-3936NVYC (RBC) [Mass/Vol]34.0 g/dL32.5-35.6FCleveland Clinic Marymount HospitalMCV Auto (RBC) [Entitic vol]Ordered By: Ese Villanueva on 98-67-1746KCL (RBC) [Entitic vol]91.6 fL83.5-101[facility] TroyMonocytes Auto (Bld) [#/Vol]Ordered By: Ese Villanueva on 97-09-1550Sxqqsgkuv (Bld) [#/Vol]0.9 10*3/uL0.0-0.8[facility] TroyMonocytes/100 WBC Auto (Bld)Ordered By: Ese Villanueva on 16-94-3936Miihadtpj/100 WBC (Bld)10.9 %. [facility] TroyNeutrophils Auto (Bld) [#/Vol]Ordered By: Ese Villanueva on 80-28-7637Mxxqjvodapj (Bld) [#/Vol]4.0 10*3/uL1.8-7.7FCleveland Clinic Marymount HospitalNeutrophils/100 WBC Auto (Bld)Ordered By: Ese Villanueva on 10-27-6251Hvlhointmke/100 WBC (Bld)51.2 %.[facility] TroyNo Panel InformationOrdered By: Ese Villanueva on 40-88-5696Mtrqozzqn GFR (CKD-EPI)> 60.0 mL/MinKettering Health TroyPharmacy Creatinine Clearance (ChemN/[facility] SpringfieldNucleated erythrocytes [Presence] in Blood by Automated countOrdered By: Ese Villanueva on 08-16-2023 Nucleated RBC Auto Ql (Bld)0.1 /100{WBC}0-0.5FC[facility] Clinic [facility] Hospital Platelet mean volume Auto (Bld) [Entitic vol]Ordered By: Ese Villanueva on 12-96-4638Qjhhoprw mean volume (Bld) [Entitic vol]8.3 fL6.6-10.1FCleveland Clinic Marymount HospitalPlatelets Auto (Bld) [#/Vol]Ordered By: Ese Villanueva on 69-03-8913Riitljzan (Bld) [#/Vol]170 10*3/rG564-227UuyzkohbvKettering Health TroyPotassium [Moles/volume] in Serum or PlasmaOrdered By: Ese Villanueva on 91-53-4924Refdkuaiz [Moles/Vol]4.2 mmol/L3.5-5.1FCleveland Clinic Marymount HospitalProtein [Mass/volume] in Serum or PlasmaOrdered By: Ese Villanueva on [id number] [Mass/Vol]7.1 g/dL6.4-8.9[facility] TroyRBC Auto (Bld) [#/Vol]Ordered By: Ese Villanueva on [id number] (Bld) [#/Vol]4.54 10*6/uL3.90-5.60[facility] Hospitalerum or plasma albumin/globulin mass ratioOrdered By: Ese Villanueva on 08-16-2023 Albumin/Globulin [Mass ratio]1.4 {ratio}[facility] Hospitalerum or plasma anion gap determinationOrdered By: Ese Villanueva on [id number] gap [Moles/Vol]13.8 mmol/L6.0-15.0[facility] Hospitalodium [Moles/volume] in Serum or PlasmaOrdered By: Ese Villanueva on 28-34-8633Rmdred [Moles/Vol]137 mmol/A874-579ChuqvneuoKettering Health TroyUrea nitrogen [Mass/volume] in Serum or PlasmaOrdered By: Ese Villanueva on 94-99-3242Avbl nitrogen [Mass/Vol]17 mg/dL7-25[facility] TroyWBC Auto (Bld) [#/Vol]Ordered By: Ese Villanueva on 12-85-0144ZMF (Bld) [#/Vol]7.8 10*3/uL 4.1-10.5FCleveland Clinic Marymount HospitalCobalamin (Vitamin B12) [Mass/Vol]on 16-65-1667FuhBysomf Health SystemComprehensive metabolic panelon 06-14-2023 Albumin [Mass/Vol]4.3 g/dL3.2 - 5.3 g/dLProMedica Health SystemALP [Catalytic activity/Vol]54 U/L39 - 130 U/LProMedica Health SystemALT No additional P-5'-P [Catalytic activity/Vol]16 U/L0 - 40 U/LProMedica Health SystemAnion gap [Moles/Vol]9 mmol/L5 - 15 mmol/LProMedica Health SystemAST [Catalytic activity/Vol]19 U/L0 - 41 U/LProMedica Health SystemBilirubin [Mass/Vol]0.4 mg/dL0.3 - 1.2 mg/dLProMedica Health SystemCalcium [Mass/Vol]9.0 mg/dL8.5 - 10.5 mg/dLProMedica Health SystemChloride [Moles/Vol]104 mmol/L98 - 109 mmol/L [facility] SystemCO2 [Moles/Vol]26 mmol/L22 - 32 mmol/LPrOhio State East HospitalCreatinine [Mass/Vol]1.03 mg/dL0.60 - 1.30 mg/dLUniversity Hospitals Geaug[facility] Comment on above:METHOD TRACEABLE TO [facility] STANDARDeGFR (CKD-EPI)non-race kvzkycuoy46- [facility] HospitalComment on above: Reported eGFR is based on the CKD-EPI 2020 equation that does not use a race coefficient. Glucose [Mass/Vol]82 mg/dL65 - 99 mg/dLUniversity Hospitals Geauga Medical CenterPotassium [Moles/Vol]4.3 mmol/L3.5 - 5.0 mmol/LPrCenterville SystemProtein [Mass/Vol] 7.7 g/dL6.0 - 8.0 g/dLColumbus Regional Healthcare Systemodium [Moles/Vol]139 mmol/L134 - 146 mmol/[facility]aw[facility] HospitalUrea nitrogen [Mass/Vol]13 mg/dL5 - 27 mg/dL [facility] HospitalVitamin B12on 54-93-7297Mrmrqttah (Vitamin B12) [Mass/Vol]310 pg/mL180 - 914 pg/mLUniversity Hospitals Geauga Medical CenterAlanine aminotransferase [Enzymatic activity/volume] in Serum or PlasmaOrdered By: Ese Villanueva on 45-16-5553UKS [Catalytic activity/Vol]21 U/L7-52[facility] TroyAlbumin [Mass/volume] in Serum or Plasma by Bromocresol green (BCG) dye binding methoOrdered By: Ese Villanueva on 08-52-0665Ptisxow BCG dye [Mass/Vol]4.2 g/dL3.5-5.7FCleveland Clinic Marymount HospitalAlkaline phosphatase [Enzymatic activity/volume] in Serum or PlasmaOrdered By: Ese Villanueva on 26-99-7016GXF [Catalytic activity/Vol]57 U/Z83-936UehfemwfsKettering Health TroyAspartate aminotransferase [Enzymatic activity/volume] in Serum or Plasma Ordered By: Ese Villanueva on 57-13-4877GON [Catalytic activity/Vol]22 U/L13-39 [facility] TroyBasophils Auto (Bld) [#/Vol]Ordered By: Ese Villanueva on 54-46-9144Dtbomsoqm (Bld) [#/Vol]0.1 10*3/uL0.0-0.2FCleveland Clinic Marymount HospitalBasophils/100 WBC Auto (Bld)Ordered By: Ese Villanueva on 98-94-7663Lybcjceno/100 WBC (Bld)0.7 %.[facility] Bilirubin.total [Mass/volume] in Serum or PlasmaOrdered By: Ese Villanueva on 23-31-9206Gbnisdysw [Mass/Vol]0.6 mg/dL0.3-1.0[facility] Calcium [Mass/volume] in Serum or PlasmaOrdered By: Ese Villanueva on 01-04-2023 Calcium [Mass/Vol]9.0 mg/dL8.6-10.3FCleveland Clinic Marymount HospitalCarbon dioxide, total [Moles/volume] in Serum or PlasmaOrdered By: Ese Villanueva on 36-96-6662EQ0 [Moles/Vol]22.4 mmol/L21.0-31.0[facility] Chloride [Moles/volume] in Serum or PlasmaOrdered By: Ese Villanueva on 13-23-5705Uuwciqnx [Moles/Vol]108 mmol/H71-221EwidzousmKettering Health Troy Creatinine [Mass/volume] in Serum or PlasmaOrdered By: Ese Villanueva on 29-93-5063Bjssntvfrh [Mass/Vol]1.21 mg/dL0.70-1.30[facility] TroyEosinophils Auto (Bld) [#/Vol]Ordered By: Ese Villanueva on 01-04-2023 Eosinophils (Bld) [#/Vol]0.3 10*3/uL0.0-0.45[facility] Eosinophils/100 WBC Auto (Bld)Ordered By: Ese Villanueva on 01-04-2023 Eosinophils/100 WBC (Bld)3.4 %.[facility] TroyErythrocyte distribution width Auto (RBC) [Ratio]Ordered By: Ese Villanueva on 01-04-2023 Erythrocyte distribution width (RBC) [Ratio]13.6 %12.0-14.8[facility] TroyErythrocyte sedimentation rate by Photometric methodOrdered By: Ese Villanueva on 78-12-8264BJJ Photometric method (Bld) [Velocity]19 mm/hr0- [facility] TroyGlobulin Calc (S) [Mass/Vol]Ordered By: Ese Villanueva on 74-77-1966Brzkazyo (S) [Mass/Vol]3.3 g/dLKettering Health TroyGlucose [Mass/volume] in Serum or PlasmaOrdered By: Ese Villanueva on 34-70-3773Qvyvebm [Mass/Vol]85 mg/lU06-786QeuqkzolvKettering Health Troy Comment on above:ADA recommended reference rangeRandom Glucose Reference Range is dependent on time and content of last meal. Glucose of more than 200 mg/dL in a nonstressed, ambulatory subject supports the diagnosisof Diabetes Mellitus. Hematocrit Auto (Bld) [Volume fraction]Ordered By: Ese Villanueva on 01-04-2023 Hematocrit (Bld) [Volume fraction]42.6 %38.8-50.0[facility] TroyHemoglobin [Mass/volume] in BloodOrdered By: Ese Villanueva on 01-04-2023 Hemoglobin (Bld) [Mass/Vol]14.4 g/dL13.0-17.0[facility] Leukocytes [#/volume] corrected for nucleated erythrocytes in Blood by Automated counOrdered By: Ese Villanueva on 04-05-3938OKI corrected for nucl RBC Auto (Bld) [#/Vol]7.8 10*3/uL4.1-10.5FCleveland Clinic Marymount HospitalLymphocytes Auto (Bld) [#/Vol]Ordered By: Ese Villanueva on 98-90-0754Roogswvbwhd (Bld) [#/Vol]2.8 10*3/uL1.00-4.8[facility] TroyLymphocytes/100 WBC Auto (Bld)Ordered By: Ese Villanueva on 75-55-2108Gcugmajxoux/100 WBC (Bld)35.2 %.[facility] HospitalH Auto (RBC) [Entitic mass]Ordered By: Ese Villanueva on 64-71-5598HKM (RBC) [Entitic mass]31.3 pg27.5-35.2FCleveland Clinic Marymount HospitalMCHC Auto (RBC) [Mass/Vol]Ordered By: Ese Villanueva on 34-05-0338JCSD (RBC) [Mass/Vol]33.9 g/dL32.5-35.6FCleveland Clinic Marymount HospitalMCV Auto (RBC) [Entitic vol]Ordered By: Ese Villanueva on 89-61-8541GXC (RBC) [Entitic vol]92.5 fL83.5-101[facility] TroyMonocytes Auto (Bld) [#/Vol]Ordered By: Ese Villanueva on 82-55-2450Ahjmokmea (Bld) [#/Vol]0.8 10*3/uL0.0-0.8[facility] TroyMonocytes/100 WBC Auto (Bld)Ordered By: Ese Villanueva on 64-28-7034Ioayjvuig/100 WBC (Bld)10.8 %. [facility] TroyNeutrophils Auto (Bld) [#/Vol]Ordered By: Ese Villanueva on 43-10-7466Tqmroohqsat (Bld) [#/Vol]3.9 10*3/uL1.8-7.7FCleveland Clinic Marymount HospitalNeutrophils/100 WBC Auto (Bld)Ordered By: Ese Villanueva on 91-73-9409Xvhegtqoimx/100 WBC (Bld)49.9 %.[facility] TroyNo Panel InformationOrdered By: Ese Villanueva on 55-87-4374Hdbkdjwwm GFR (CKD-EPI)> 60.0 mL/MinKettering Health TroyPharmacy Creatinine Clearance (ChemN/AFCleveland Clinic Marymount HospitalNucleated erythrocytes [Presence] in Blood by Automated countOrdered By: Ese Villanueva on 01-04-2023 Nucleated RBC Auto Ql (Bld)0.0 /100{WBC}0-0.5FCleveland Clinic Marymount Hospital Platelet mean volume Auto (Bld) [Entitic vol]Ordered By: Ese Villanueva on 05-13-8742Ywzezimj mean volume (Bld) [Entitic vol]8.3 fL6.6-10.1FCleveland Clinic Marymount HospitalPlatelets Auto (Bld) [#/Vol]Ordered By: Ese Villanueva on 40-74-8245Rfqlxluef (Bld) [#/Vol]161 10*3/mB813-811TyyyeixmhKettering Health TroyPotassium [Moles/volume] in Serum or PlasmaOrdered By: Ese Villanueva on 05-45-3141Zjlpmxdrl [Moles/Vol]4.1 mmol/L3.5-5.1FCleveland Clinic Marymount HospitalProtein [Mass/volume] in Serum or PlasmaOrdered By: Ese Villanueva on 58-33-6339Coybcje [Mass/Vol]7.5 g/dL6.4-8.9[facility] TroyRBC Auto (Bld) [#/Vol]Ordered By: Ese Villanueva on 39-18-8740WQH (Bld) [#/Vol]4.60 10*6/uL3.90-5.60[facility] Hospitalerum or plasma albumin/globulin mass ratioOrdered By: Ese Villanueva on 01-04-2023 Albumin/Globulin [Mass ratio]1.3 {ratio}[facility] Hospitalerum or plasma anion gap determinationOrdered By: Ese Villanueva on 77-68-8758Evdan gap [Moles/Vol]11.7 mmol/L6.0-15.0[facility] Hospitalodium [Moles/volume] in Serum or PlasmaOrdered By: Ese Villanueva on 45-43-1438Ykvesf [Moles/Vol]138 mmol/K047-829LfsmcopltKettering Health TroyUrea nitrogen [Mass/volume] in Serum or PlasmaOrdered By: Ese Villanueva on 86-14-1565Akkp nitrogen [Mass/Vol]16 mg/dL7-25[facility] TroyWBC Auto (Bld) [#/Vol]Ordered By: Ese Villanueva on 81-87-8025GTD (Bld) [#/Vol]7.8 10*3/uL 4.1-10.5FCleveland Clinic Marymount HospitalAlanine aminotransferase [Enzymatic activity/volume] in Serum or PlasmaOrdered By: Ese Villanueva on 43-13-0674SGD [Catalytic activity/Vol]19 U/L7-52[facility] TroyAlbumin [Mass/volume] in Serum or Plasma by Bromocresol green (BCG) dye binding metho Ordered By: Ese Villanueva on 90-59-9949Dcxrhan BCG dye [Mass/Vol]4.1 g/dL 3.5-5.7FCleveland Clinic Marymount HospitalAlkaline phosphatase [Enzymatic activity/volume] in Serum or PlasmaOrdered By: Ese Villanueva on 84-35-9589HVT [Catalytic activity/Vol]57 U/G69-206VzqdltfaaKettering Health TroyAspartate aminotransferase [Enzymatic activity/volume] in Serum or PlasmaOrdered By: Ese Villanueva on 75-28-8614UNM [Catalytic activity/Vol]21 U/E75-40PogqwwmoaKettering Health TroyBasophils Auto (Bld) [#/Vol]Ordered By: Ese Villanueva on 41-61-9889Yrxliydti (Bld) [#/Vol]0.1 10*3/uL0.0-0.2FCleveland Clinic Marymount HospitalBasophils/100 WBC Auto (Bld)Ordered By: Ese Villanueva on 09-14-2022 Basophils/100 WBC (Bld)0.8 %.[facility] TroyBilirubin.total [Mass/volume] in Serum or PlasmaOrdered By: Ese Villanueva on 09-14-2022 Bilirubin [Mass/Vol]0.7 mg/dL0.3-1.0[facility] TroyCalcium [Mass/volume] in Serum or PlasmaOrdered By: Ese Villanueva on 81-57-1518Xsycpwk [Mass/Vol]9.0 mg/dL8.6-10.3FCleveland Clinic Marymount HospitalCarbon dioxide, total [Moles/volume] in Serum or PlasmaOrdered By: Ese Villanueva on 09-14-2022 CO2 [Moles/Vol]23.6 mmol/L21.0-31.0[facility] TroyChloride [Moles/volume] in Serum or PlasmaOrdered By: Ese Villanueva on 09-14-2022 Chloride [Moles/Vol]106 mmol/D05-083FnyepapwzKettering Health TroyCreatinine [Mass/volume] in Serum or PlasmaOrdered By: Ese Villanueva on 09-14-2022 Creatinine [Mass/Vol]1.19 mg/dL0.70-1.30[facility] Eosinophils Auto (Bld) [#/Vol]Ordered By: Ese Villanueva on 09-14-2022 Eosinophils (Bld) [#/Vol]0.3 10*3/uL0.0-0.45[facility] Eosinophils/100 WBC Auto (Bld)Ordered By: Ese Villanueva on 09-14-2022 Eosinophils/100 WBC (Bld)3.9 %.[facility] TroyErythrocyte distribution width Auto (RBC) [Ratio]Ordered By: Ese Villanueva on 09-14-2022 Erythrocyte distribution width (RBC) [Ratio]13.5 %12.0-14.8[facility] TroyErythrocyte sedimentation rate by Photometric methodOrdered By: Ese Villanueva on 58-52-9067PQT Photometric method (Bld) [Velocity]12 mm/hr0-19 [facility] TroyGlobulin Calc (S) [Mass/Vol]Ordered By: Ese Villanueva on 14-51-8055Ktwbxuji (S) [Mass/Vol]3.3 g/dLKettering Health TroyGlucose [Mass/volume] in Serum or PlasmaOrdered By: Ese Villanueva on 05-07-3899Ktyzbmw [Mass/Vol]110 mg/aR48-549JhijgqpupKettering Health Troy Comment on above:ADA recommended reference rangeRandom Glucose Reference Range is dependent on time and content of last meal. Glucose of more than 200 mg/dL in a nonstressed, ambulatory subject supports the diagnosisof Diabetes Mellitus. Hematocrit Auto (Bld) [Volume fraction]Ordered By: Ese Villanueva on 09-14-2022 Hematocrit (Bld) [Volume fraction]42.3 %38.8-50.0[facility] TroyHemoglobin [Mass/volume] in BloodOrdered By: Ese Villanueva on 09-14-2022 Hemoglobin (Bld) [Mass/Vol]14.4 g/dL13.0-17.0[facility] Leukocytes [#/volume] corrected for nucleated erythrocytes in Blood by Automated counOrdered By: Ese Villanueva on 63-41-8143JOY corrected for nucl RBC Auto (Bld) [#/Vol]7.6 10*3/uL4.1-10.5FCleveland Clinic Marymount HospitalLymphocytes Auto (Bld) [#/Vol]Ordered By: Ese Villanueva on 94-87-1889Kcpebzmwshn (Bld) [#/Vol]2.4 10*3/uL1.00-4.8[facility] TroyLymphocytes/100 WBC Auto (Bld)Ordered By: Ese Villanueva on 46-55-9995Khurzanipvn/100 WBC (Bld)32.1 %.[facility] HospitalH Auto (RBC) [Entitic mass]Ordered By: Ese Villanueva on 07-09-0551KXG (RBC) [Entitic mass]30.9 pg27.5-35.2FC[facility] Clinic Marymount HospitalMCHC Auto (RBC) [Mass/Vol]Ordered By: Ese Villanueva on 28-54-3572IXNW (RBC) [Mass/Vol]33.9 g/dL32.5-35.6FCleveland Clinic Marymount HospitalMCV Auto (RBC) [Entitic vol]Ordered By: Ese Villanueva on 17-11-8448WMX (RBC) [Entitic vol]91.0 fL83.5-101[facility] TroyMonocytes Auto (Bld) [#/Vol]Ordered By: Ese Villanueva on 90-58-4354Depykwiid (Bld) [#/Vol]0.7 10*3/uL0.0-0.8[facility] TroyMonocytes/100 WBC Auto (Bld)Ordered By: Ese Villanueva on 78-52-5713Ywcrgaxpe/100 WBC (Bld)8.7 %. [facility] TroyNeutrophils Auto (Bld) [#/Vol]Ordered By: Ese Villanueva on 89-91-5193Cqcrihjotwt (Bld) [#/Vol]4.1 10*3/uL1.8-7.7FCleveland Clinic Marymount HospitalNeutrophils/100 WBC Auto (Bld)Ordered By: Ese Villanueva on 96-77-9517Cvtqotptnid/100 WBC (Bld)54.5 %.[facility] TroyNo Panel InformationOrdered By: Ese Villanueva on 62-01-1654Vmbybkeod GFR (CKD-EPI)> 60.0 mL/MinKettering Health TroyPharmacy Creatinine Clearance (ChemN/[facility] SpringfieldNucleated erythrocytes [Presence] in Blood by Automated countOrdered By: Ese Villanueva on 09-14-2022 Nucleated RBC Auto Ql (Bld)0.1 /100{WBC}0-0.5FC[facility] Clinic [facility] Hospital Platelet mean volume Auto (Bld) [Entitic vol]Ordered By: Ese Villanueva on 73-89-0775Glesbjjz mean volume (Bld) [Entitic vol]8.4 fL6.6-10.1FCleveland Clinic Marymount HospitalPlatelets Auto (Bld) [#/Vol]Ordered By: Ese Villanueva on 22-24-6604Jrpkysopm (Bld) [#/Vol]166 10*3/mD670-016PmwatpsyfKettering Health TroyPotassium [Moles/volume] in Serum or PlasmaOrdered By: Ese Villanueva on 84-64-7171Yfadywcnn [Moles/Vol]4.1 mmol/L3.5-5.1FCleveland Clinic Marymount HospitalProtein [Mass/volume] in Serum or PlasmaOrdered By: Ese Villanueva on 76-74-8025Thcmrse [Mass/Vol]7.4 g/dL6.4-8.9[facility] TroyRBC Auto (Bld) [#/Vol]Ordered By: Ese Villanueva on 33-88-9672BCV (Bld) [#/Vol]4.65 10*6/uL3.90-5.60[facility] Hospitalerum or plasma albumin/globulin mass ratioOrdered By: Ese Villanueva on 09-14-2022 Albumin/Globulin [Mass ratio]1.2 {ratio}[facility] Hospitalerum or plasma anion gap determinationOrdered By: Ese Villanueva on 46-04-5585Stuvb gap [Moles/Vol]11.5 mmol/L6.0-15.0[facility] Hospitalodium [Moles/volume] in Serum or PlasmaOrdered By: Ese Villanueva on 18-72-5060Mdoine [Moles/Vol]137 mmol/B883-223QiomwrbutKettering Health TroyUrea nitrogen [Mass/volume] in Serum or PlasmaOrdered By: Ese Villanueva on 34-89-3143Fflq nitrogen [Mass/Vol]19 mg/dL7-25[facility] TroyWBC Auto (Bld) [#/Vol]Ordered By: Ese Villanueva on 90-54-8245RJS (Bld) [#/Vol]7.6 10*3/uL 4.1-10.5FCleveland Clinic Marymount HospitalVC CONSULT FOLLOWUPon 71-99-7364LO CONSULT FOLLOWUPPatient: ELIAN CAVAZOS Exam Date: 08/30/2022 : 1955 Gender:M Ordering : DR MIREYA CHRISTIANSON M.D. Admission #: [id number] Family : Order #: [id number] CLICK HERE TO VIEW EXAM RADIOLOGY REPORT PROCEDURE: VEIN CENTER CONSULTATION FOLLOWUP VEIN CENTER - OFFICE VISIT FOLLOW UP COMPARISON: VC CONSULT FOLLOWUP, 08/12/2022. PROGRESS NOTES: The patient reports that improvement in leg symptoms. There has been interval reduction in varicosities. The patient has followed our recommendations to walk 20-30 minutes once or twice per day since the procedure. Physical exam demonstrates decrease in varicosities of the left leg. Persistent superficial varicosities are identified along the legs bilaterally. Review of the ultrasound performed the same day demonstrates occlusive thrombus extending throughout the treated vein, see separate report, consistent with a successful ablation. No thrombus extending into or beyond the saphenofemoral junction. The patient expressed a desire to proceed with treatment of remaining incompetent branch saphenous varicosities, but likely after summer has passed. The patient was informed that treatment was a process and would require several procedures/sessions. IMPRESSION: 1. Successful ablation of the left anterior accessory saphenous vein 2. Persistent varicose veins and lower extremity symptoms PLAN: Microfoam chemical ablation of remaining incompetent branch saphenous varicosities within the right and left lower extremities. Nurse notes, history and physical were reviewed and confirmed, see attached forms. The nurse was present throughout the physical exam and consultation Dictated by: Darin Chappell M.D. on 08/30/2022 at 14:42 Approved by: Darin Chappell M.D. on 08/30/2022 at 14:46[facility] HospitalVC EXT VENOUS LT LIMITEDon 25-42-5822NF EXT VENOUS LT LIMITEDPatient: ELIAN CAVAZOS Exam Date: 08/30/2022 : 1955 Gender:M Ordering : DR MIREYA CHRISTIANSON M.D. Admission #: [id number] Family : Order #: [id number] CLICK HERE TO VIEW EXAM RADIOLOGY REPORT PROCEDURE: VEIN CENTER EXTREMITY VENOUS LEFT LIMITED COMPARISON: VC EXT VENOUS LT LIMITED, 07/20/2022. INDICATIONS: Phlebitis of superficial veins of lower extremity I80.02 TECHNIQUE: Lower extremity dempsey scale and Duplex Doppler evaluation of the deep venous system from the inguinal ligament through the calf veins. FINDINGS: REGION: Left lower extremity. THROMBI: Negative for DVT. Heat induced thrombus visualized arising at tortuous portion of AASV. The thrombus extends through mid thigh. COMPRESSIBILITY: Non-compressible segments. FLOW: Areas of no flow. OTHER: CONCLUSION: 1. Successful post ablation occlusion of left anterior accessory saphenous vein. Dictated by: Darin Chappell M.D. on 08/30/2022 at 14:37 Approved by: Darin Chappell M.D. on 08/30/2022 at 14:38[facility] HospitalVC ENDOVENOUS ABL 1ST V LTon 31-33-8544IS ENDOVENOUS ABL 1ST V LT Patient: ELIAN CAVAZOS Exam Date: 08/26/2022 : 1955 Gender:M Ordering : DR MIREYA CHRISTIANSON M.D. Admission #: [id number] Family : Order #: [id number] CLICK HERE TO VIEW EXAM RADIOLOGY REPORT PROCEDURE: VEIN CENTER ENDOVENOUS ABLATION FIRST VEIN LEFT COMPARISON: VC ENDOVENOUS ABL 1ST V LT, 07/13/2022. INDICATIONS: Pain co-occurrent and due to varicose veins of bilateral legs I83.813 OPERATIVE REPORT: The risks and benefits of the procedure had been previously discussed, and were rediscussed at length. Informed written consent was obtained by and Joseph Valles assisted. Time out procedure was performed. The left lower extremity was prepared and draped in the usual sterile fashion to allow knee flexion in the sterile field. Duplex ultrasound probe was draped in a sterile cover, sterile transmission gel was used. Venous mapping was performed with the areas of dilation and large tributaries marked. The total length was 15 cm from the entry midthigh to 3 cm below the saphenofemoral junction. The diameter of the greater saphenous vein ranged from 8 mm. A 30 gauge needle and 1% buffered lidocaine was used to anesthetize the entry site. A 4 mm incision was made with a scalpel and the saphenous vein was entered percutaneously under direct ultrasound guidance with a micropuncture set, a single stick was successful in gaining access. A micro-guide wire was inserted and the needle removed. A micro-set including a dilator was inserted over the microwire and the needle and dilator were removed. A 0.018 guide wire was inserted through the micro-set and threaded through the saphenous vein to the saphenofemoral junction. The dilator was removed and an introducer sheath was inserted over the wire until the end of the sheath entered the saphenofemoral junction. The dilator and wire were removed and the 600 micron fiber was introduced and placed and positioned so that it extended beyond the sheath and was 3 cm peripheral to the saphenofemoral femoral junction. Final position of the fiber was determined by ultrasound guidance and duplex imaging. Tumescent anesthetic was delivered by ultrasound guidance. One hundred cc of fluid was delivered along the entire course of the saphenous vein. The solution consisted of 500 cc of normal saline with 20mL of 1% lidocaine and 10 mL of sodium bicarbonate. A final positioning check was made. The energy source was turned on by means of the foot pedal and the fiber and sheath were withdrawn. The total number of Joules delivered was 700 to. The laser was active for 88 seconds under continuous pulse, average laser use of 8 J. Laser start time 9:27 a.m. August 26, 2022. Laser stop time 9:29 a.m. Of August 26, 2022. A duplex ultrasound revealed compressibility and flow at the saphenofemoral junction immediately after the procedure. Hemostasis at the access site was achieved. The skin incision of the saphenous vein was closed with a 4 x 4. A compression stocking was applied. Postop instructions were given. A follow up appointment was recommended and scheduled. The patient tolerated the procedure well and was discharged in good condition. CONCLUSION: 1. Technically successful endovenous laser ablation of the left anterior accessory saphenous vein. Dictated by: Darin Chappell M.D. on 08/26/2022 at 09:42 Approved by: Darin Chappell M.D. on 08/26/2022 at 09:44[facility] HospitalVC CONSULT FOLLOWUPon [id number] CONSULT FOLLOWUPPatient: ELIAN CAVAZOS Exam Date: 08/12/2022 : 1955 Gender:M Ordering : DR MIREYA CHRISTIANSON M.D. Admission #: [id number] Family : Order #: [id number] CLICK HERE TO VIEW EXAM RADIOLOGY REPORT PROCEDURE: VEIN CENTER CONSULTATION FOLLOWUP VEIN CENTER - OFFICE VISIT FOLLOW UP COMPARISON: VC CONSULT FOLLOWUP, 07/20/2022. PROGRESS NOTES: The patient reports that improvement in leg symptoms. There has been interval reduction in varicosities. The patient has followed our recommendations to walk 20-30 minutes once or twice per day since the procedure. Physical exam demonstrates mild bruising; no evidence of infection. Mild decrease in varicosities of the foot right leg. Persistent varicosities are identified along the legs bilaterally. Review of the ultrasound performed the same day demonstrates occlusive thrombus extending throughout the treated vein, see separate report, consistent with a successful ablation. No thrombus extending into or beyond the saphenofemoral junction. The patient expressed a desire to proceed with treatment of remaining incompetent veins. The patient was informed that treatment was a process and would require several procedures/sessions. IMPRESSION: 1. Successful ablation of the right small saphenous vein 2. 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 Nurse notes, history and physical were reviewed and confirmed, see attached forms. The nurse was present throughout the physical exam and consultation Dictated by: Darin Chappell M.D. on 08/12/2022 at 12:30 Approved by: Darin Chappell M.D. on 08/12/2022 at 12:33[facility] HospitalVC EXT VENOUS RT LIMITEDon [id number] EXT VENOUS RT LIMITEDPatient: ELIAN CAVAZOSBert Exam Date: 08/12/2022 : 1955 Gender:M Ordering : DR MIREYA CHRISTIANSON M.D. Admission #: [id number] Family : Order #: [id number] CLICK HERE TO VIEW EXAM RADIOLOGY REPORT PROCEDURE: VEIN CENTER EXTREMITY VENOUS RIGHT LIMITED COMPARISON: None. INDICATIONS: Phlebitis of superficial veins of lower extremity I80.01 TECHNIQUE: Lower extremity dempsey scale and Duplex Doppler evaluation of the deep venous system from the inguinal ligament through the calf veins. FINDINGS: REGION: Right lower extremity. THROMBI: Negative for DVT. Heat induced thrombus visualized 2.8 cm from the SPJ. The heat induced thrombus extends from SFJ to distal calf. COMPRESSIBILITY: Non-compressible segments. FLOW: Areas of no flow. OTHER: CONCLUSION: 1. Successful post ablation occlusion of right small saphenous vein. Dictated by: Darin Chappell M.D. on 08/12/2022 at 12:28 Approved by: Darin Chappell M.D. on 08/12/2022 at 12:30[facility] HospitalVC ENDOVENOUS ABL 1ST V RTon [id number] ENDOVENOUS ABL 1ST V RT Patient: ELIAN CAVAZOS. Exam Date: 08/05/2022 : 1955 Gender:M Ordering : DR MIREYA CHRISTIANSON M.D. Admission #: [id number] Family : Order #: [id number] CLICK HERE TO VIEW EXAM RADIOLOGY REPORT PROCEDURE: VEIN CENTER ENDOVENOUS ABLATION FIRST VEIN RIGHT COMPARISON: VC VENOUS REFLUX ELIEZER LMT, 06/29/2022. INDICATIONS: Pain co-occurrent and due to varicose veins of bilateral legs OPERATIVE REPORT: The risks and benefits of the procedure had been previously discussed, and were rediscussed at length. Informed written consent was obtained by and Joseph brasher. Time out procedure was performed. The right lower extremity was prepared and draped in the usual sterile fashion to allow knee flexion in the sterile field. Duplex ultrasound probe was draped in a sterile cover, sterile transmission gel was used. Venous mapping was performed with the areas of dilation and large tributaries marked. The total length was 25 cm from the entry 4 cm above the medial malleolus to 3 cm below the saphenopopliteal junction. The diameter of the greater saphenous vein ranged from 7 mm. A 30 gauge needle and 1% buffered lidocaine was used to anesthetize the entry site. A 4 mm incision was made with a scalpel and the saphenous vein was entered percutaneously under direct ultrasound guidance with a micropuncture set, a single stick was successful in gaining access. A micro-guide wire was inserted and the needle removed. A micro-set including a dilator was inserted over the microwire and the needle and dilator were removed. A 0.018 guide wire was inserted through the micro-set and threaded through the saphenous vein to the saphenofemoral junction. The dilator was removed and an introducer sheath was inserted over the wire until the end of the sheath entered the saphenofemoral junction. The dilator and wire were removed and the 600 micron fiber was introduced and placed and positioned so that it extended beyond the sheath and was 3 cm peripheral to the saphenofemoral femoral junction. Final position of the fiber was determined by ultrasound guidance and duplex imaging. Tumescent anesthetic was delivered by ultrasound guidance. One hundred twenty-five cc of fluid was delivered along the entire course of the saphenous vein. The solution consisted of 500 cc of normal saline with 20mL of 1% lidocaine and 10 mL of sodium bicarbonate. A final positioning check was made. The energy source was turned on by means of the foot pedal and the fiber and sheath were withdrawn. The total number of Joules delivered was 1273. The laser was active for 159 seconds under continuous pulse, average laser use of 8 J. Laser start time 9:55 a.m. August 05, 2022. Laser stop time 9:58 a.m. August 05, 2022. A duplex ultrasound revealed compressibility and flow at the saphenofemoral junction immediately after the procedure. Hemostasis at the access site was achieved. The skin incision of the saphenous vein was closed with a 4 x 4. A compression stocking was applied. Postop instructions were given. A follow up appointment was recommended and scheduled. The patient tolerated the procedure well and was discharged in good condition. CONCLUSION: 1. Technically successful endovenous laser ablation of the right small saphenous vein. Dictated by: Darin Chappell M.D. on 08/05/2022 at 10:12 Approved by: Darin Chappell M.D. on 08/05/2022 at 10:15[facility] CON[facility] FOLLOWUPon [id number] CONSULT FOLLOWUPPatient: ELIAN CAVAZOS Exam Date: 07/20/2022 : 1955 Gender:M Ordering : DR MIREYA CHRISTIANSON M.D. Admission #: [id number] Family : Order #: [id number] CLICK HERE TO VIEW EXAM RADIOLOGY REPORT PROCEDURE: VEIN CENTER CONSULTATION FOLLOWUP VEIN CENTER - OFFICE VISIT FOLLOW UP COMPARISON: None. PROGRESS NOTES: The patient reports no significant problems following intravenous laser ablation of the left small saphenous vein. The patient did not require analgesics. The patient worn his compression stocking. The patient has followed our recommendations to walk 20-30 minutes once or twice per day since the procedure. Physical exam demonstrates extensive bilateral hemosiderin staining. The small saphenous vein cannot be palpated. No areas of erythema or warmth to suggest cellulitis or thrombophlebitis. No active ulceration Review of the ultrasound performed the same day demonstrates occlusive thrombus extending throughout the treated left small saphenous vein which was a thigh extension period no deep vein thrombus. The patient expressed a desire to proceed with treatment of incompetent right small saphenous vein. IMPRESSION: 1. Successful ablation of the left small saphenous vein 2. Persistent incompetent right small saphenous vein PLAN: Intravenous laser ablation right small saphenous vein Nurse notes, history and physical were reviewed and confirmed, see attached forms. The nurse was present throughout the physical exam and consultation Dictated by: Mireya Christianson MD on 07/20/2022 at 12:44 Approved by: Mireya Christianson MD on 07/20/2022 at 12:46[facility] EXT VENOUS LT LIMITEDon [id number] EXT VENOUS LT LIMITEDPatient: ELIAN CAVAZOS. Exam Date: 07/20/2022 : 1955 Gender:M Ordering : DR MIREYA CHRISTIANSON M.D. Admission #: [id number] Family : Order #: [id number] CLICK HERE TO VIEW EXAM RADIOLOGY REPORT PROCEDURE: VEIN CENTER EXTREMITY VENOUS LEFT LIMITED COMPARISON: None. INDICATIONS: Phlebitis of superficial veins of lower extremity I80.02 TECHNIQUE: Lower extremity dempsey scale and Duplex Doppler evaluation of the deep venous system from the inguinal ligament through the calf veins. FINDINGS: REGION: Left lower extremity. THROMBI: Negative for DVT. Heat induced thrombus arising in pop fossa and extending through distal calf. The SSV is a thigh extension. COMPRESSIBILITY: Non-compressible segments corresponding to throb. FLOW: Absent flow corresponding to thrombus *Exam performed in accordance with [facility] practice guidelines- Peripheral venous ultrasound, July 12, 2009. CONCLUSION: Post ablation occlusion of the left small saphenous vein , thigh extension with no deep vein thrombus Dictated by: Mireya Christianson MD on 07/20/2022 at 10:44 Approved by: Mireya Christianson MD on 07/20/2022 at 10:45[facility] 1ST V LTon [id number] ENDOVENOUS ABL 1ST V LTPatient: ELIAN CAVAZOS. Exam Date: 07/13/2022 : 1955 Gender:M Ordering : DR MIREYA CHRISTIANSON M.D. Admission #: [id number] Family : Order #: [id number] CLICK HERE TO VIEW EXAM RADIOLOGY REPORT PROCEDURE: VEIN CENTER ENDOVENOUS ABLATION FIRST VEIN LEFT SMALL SAPHENOUS VEIN COMPARISON: None. INDICATIONS: Pain co-occurrent and due to varicose veins of bilateral legs I83.813 OPERATIVE REPORT: The risks and benefits of the procedure had been previously discussed, and were rediscussed at length. Informed written consent was obtained by and Joseph brasher. Time out procedure was performed. The left lower extremity was prepared and draped in the usual sterile fashion. Duplex ultrasound probe was draped in a sterile cover, sterile transmission gel was used. Venous mapping was performed with the areas of dilation and large tributaries marked. The total length was 22 cm from the entry mid to distal calf to wear the vein begins to dive into the muscle, this was a thigh extension. The diameter of the small saphenous vein ranged from 6-7 mm. A 30 gauge needle and 1% buffered lidocaine was used to anesthetize the entry site. A 4 mm incision was made with a scalpel and the saphenous vein was entered percutaneously under direct ultrasound guidance with a micropuncture set, a single stick was successful in gaining access. A micro-guide wire was inserted and the needle removed. A micro-set including a dilator was inserted over the microwire and the needle and dilator were removed. A 0.018 guide wire was inserted through the micro-set and threaded through the saphenous vein. The dilator was removed and an introducer sheath was inserted over the wire. The dilator and wire were removed and the 600 micron fiber was introduced and placed and positioned so that it extended beyond the sheath. Final position of the fiber was determined by ultrasound guidance and duplex imaging. Tumescent anesthetic was delivered by ultrasound guidance. 150 cc of fluid was delivered along the entire course of the saphenous vein. The solution consisted of 500 cc of normal saline with 20mL of 1% lidocaine and 10 mL of sodium bicarbonate. A final positioning check was made. The energy source was turned on by means of the foot pedal and the fiber and sheath were withdrawn. The total number of Joules delivered was 1037. The laser was active for 130 seconds under continuous pulse, average laser use of 8 J. Laser start time 10:57 a.m. July 13, 2022. Laser stop time 10:59 a.m. July 13, 2022. A duplex ultrasound revealed compressibility and flow at the saphenofemoral junction immediately after the procedure. Hemostasis at the access site was achieved. The skin incision of the saphenous vein was closed with a 4 x 4. A compression stocking was applied. Postop instructions were given. A follow up appointment was recommended and scheduled. The patient tolerated the procedure well and was discharged in good condition. CONCLUSION: 1. Technically successful endovenous laser ablation of the left small saphenous vein. Dictated by: Mireya Christianson MD on 07/13/2022 at 11:18 Approved by: Mireya Christianson MD on 07/13/2022 at 11:20[facility] COMP CONSULTATIONon [id number] COMP CONSULTATIONPatient: ELIAN CAVAZOS Exam Date: 06/29/2022 : 1955 Gender:M Ordering : DR MIREYA CHRISTIANSON M.D. Admission #: [id number] Family : Order #: [id number] CLICK HERE TO VIEW EXAM RADIOLOGY REPORT PROCEDURE: VC VEIN CENTER CONSULTATION VEIN CENTER - OFFICE VISIT INITIAL COMPARISON: None. PROGRESS NOTES: [age] year old male who presents with a 40 year history of dilated bulging veins, discolored veins, leg pain and swelling, muscle cramping, edema. The patient's leg symptoms are symmetric bilaterally. There has been a progression of symptoms. This increases with prolonged leg dependency. The patient describes an improvement with rest and elevation. The patient denies any signs and symptoms to suggest arterial ischemia. The patient describes a family history varicose veins on paternal side. The patient has drinking and smoking history of : Occasional alcohol consumption. Patient has a past medical history significant for prior vein stripping of great saphenous vein bilaterally, hypertension, peripheral neuropathy, psoriasis, heart disease. The patient denies a history of deep venous thrombus or pulmonary embolus. See separate history and physical for medication list. Vein stripping of great saphenous vein bilaterally in 1984. Current use of compression stockings. After review of nurse notes, history and physical exam I discussed at length the pathophysiology of venous hypertension and possible treatments, therapies and strategies available. We discussed at length the importance of elevating the lower extremities above the level of the heart, increased physical activity and compression stocking use. Ultrasound venous reflux study performed today was discussed at length with the patient. The report demonstrates abnormally dilated and incompetent small saphenous and anterior accessory saphenous veins bilaterally. Incompetent publicity director veins and numerous dilated, incompetent branch saphenous varicosities bilaterally. PHYSICAL EXAM: The right leg demonstrates multiple large varicosities, a few scattered spider veins, no ulceration, mild-moderate edema, skin discoloration. The left leg demonstrates multiple large varicosities, a few scattered spider veins, no ulceration, mild-moderate edema, skin discoloration. Both thighs, legs and feet were symmetrically warm to the touch. Good posterior tibial and dorsalis pedis pulses were present bilaterally. IMPRESSION: 1. Bilateral lower extremity venous insufficiency 2. Bilateral lower extremity varicose veins 3. Moderate bilateral lower extremity subcutaneous edema 4. No flow significant arterial disease 5. CEAP: C4a, EC, AP, DE PLAN: 1. Continued use of compression stockings 2. Elevated legs and increased physical activity symptomatic relief 3. Endovenous laser ablation of bilateral small saphenous and anterior accessory saphenous veins. Microfoam chemical ablation of the numerous prominent branch saphenous varicosities bilaterally. Sclerotherapy of reticular and spider veins as needed. Nurse notes, history and physical were reviewed and confirmed, see attached forms. The nurse was present throughout the physical exam and consultation Dictated by: Darin Chappell M.D. on 06/29/2022 at 11:00 Approved by: Darin Chappell M.D. on 06/29/2022 at 11:08[facility] VENOUS REFLUX ELIEZER Ton [id number] VENOUS REFLUX ELIEZER LMTPatient: ELIAN CAVAZOS Exam Date: 06/29/2022 : 1955 Gender:M Ordering : DR MIREYA CHRISTIANSON M.D. Admission #: [id number] Family : Order #: [id number] CLICK HERE TO VIEW EXAM RADIOLOGY REPORT PROCEDURE: VEIN CENTER ULTRASOUND VENOUS REFLUX BILATERAL LIMTED COMPARISON: None. INDICATIONS: Pain co-occurrent and due to varicose veins of bilateral legs I83.813 TECHNIQUE: Duplex imaging of the lower extremity to assess the deep and superficial venous system for the presence of deep or superficial venous incompetence and to document the location and severity of disease. The study includes evaluation of the great saphenous vein (GSV), anterior accessory saphenous vein (AASV) and small saphenous vein (SSV). Patient scanned in reverse Trendelenburg and standing. FINDINGS: RIGHT LOWER EXTREMITY: Saphenofemoral Junction Reflux: Yes 10.8mm 2.4 sec GSV: Diam (mm) Reflux/ Time (sec) Proximal Thigh N/A Mid Thigh N/A Distal Thigh N/A Prox Calf N/A Mid Calf N/A Saphenopopliteal Junction Reflux: 5.5mm Yes 1.2 SSV: Proximal Calf 6.4 Yes 1.5 Mid Calf 6.7 Yes 3.0 AASV: Proximal Thigh 7.8 Yes 3.0 Mid Thigh Distal Thigh Thrombi: No acute or chronic thrombus visualized Compressibility: Normal Flow: Normal Preforator: Dist/med calf 4.2mm with 0.8s reflux. Mid/med calf 7.6mm with 0s reflux. Tech Note: Incompetent SPJ and SSV. The GSV has been previously stripped. The AASV is tortuous 5.8 cm from the SFJ. Patent varicosity dist/med calf 5.3mm with 0.7s reflux. Patent varicosity mid/med calf 9.1mm with 0.8s reflux. Patent varicosity prox/med calf 9.6mm with 1.7s reflux. Patent varicosity dist/med thigh 9.4mm with 1.7s reflux. LEFT LOWER EXTREMITY: Saphenofemoral Junction Reflux: mm sec GSV: Diam (mm) Reflux/Time (sec) Proximal Thigh NoN/A Mid Thigh N/A Distal Thigh N/A Prox Calf N/A Mid Calf N/A Saphenopopliteal Junction Relux: 6.5 mm Yes 2.1 SSV: Proximal Calf 6.7 Yes 1.8 Mid Calf 5.9 Yes 0.7 AASV: Proximal Thigh 8.2 Yes 2.1 Mid Thigh Distal Thigh Thrombi: No acute or chronic thrombus visualized Compressibility: Normal Flow: 1 second of reflux visualized in the FV. Motor Carrier Inspector: Dist/med calf 6.4mm with 2.0s reflux. Tech Note: Incompetent SPJ and SSV. GSV has been previously stripped. AASV is tortuous 6-7 cm from the SFJ. Patent varicosity dist/med calf 6.6mm with 0.7s reflux. Patent varicosity mid/med calf 8.8mm with 1.5s reflux. Patent varicosity prox/med calf 8.9mm with 2.0s reflux. Patent varicosity mid/med thigh 4.8mm with 2.0s reflux. CONCLUSION: 1. Prior vein stripping of great saphenous vein bilaterally. 2. Dilated, incompetent small saphenous and anterior accessory saphenous veins bilaterally. 3. Numerous prominent the dilated and incompetent branch saphenous varicosities bilaterally. 4. Consultation for endovenous ablation is recommended. Dictated by: Darin Chappell M.D. on 06/29/2022 at 10:36 Approved by: Darin Chappell M.D. on 06/29/2022 at 10:38[facility] HospitalASEon [id number] [Catalytic activity/Vol]72 U/CIexxjn22-292 The [facility] HospitalComment on above:Performed By: #### CMP, LAST PEREZA ####[facility] [address] [place] [address]Dr. Domi RosarioCBC AUTO DIFFon [id number] #0.0 103/ulNormal0.0-0.1The [facility] HospitalComment on above:Performed By: #### CBC ####[facility] [address] [place], [place] [address]Dr.Domi RosarioBasophils/100 WBC (Bld)0.3 %Normal0.2-2.0The [facility] HospitalComment on above:Performed By: #### CBC ####[facility] Ytf[address]man[address] [place], [place] [address]Dr.Domi ChangEO #0.1 103/ulNormal0.0-0.7The [facility] HospitalComment on above:Performed By: #### CBC ####[facility] [address]btv[address] [place], [place] [address]Dr.Domi ChangEosinophils/100 WBC (Bld)1.2 %Normal 0.9-7.0The [facility] Hospitalment on above:Performed By: #### CBC ####[facility] [address] [place], [place] [address]Dr.Domi Rosario Erythrocyte distribution width (RBC) [Ratio]13.0 %Btfbrz59.0-15.0The [facility] HospitalComment on above:Performed By: #### CBC ####[facility] [address] [place], [place] [address]Dr.Domi RosarioHematocrit (Bld) [Volume fraction]44.7 %Gagncw35.0-54.0The [facility] HospitalComment on above:Performed By: #### CBC ####[facility] [address] [place], [place] [address]Dr.Domi RosarioHemoglobin (Bld) [Mass/Vol]15.7 g/dL Mrtnar89.0-18.0The [facility] HospitalComment on above:Performed By: #### CBC ####[facility] [address] [place] [address]Dr. Domi RosarioIG #0.04 10e3/ulCritically high0.00-0.03The [facility] HospitalComment on above:Performed By: #### CBC ####[facility] [address] [place] [address]Dr.Gloriabenjamin AbrahamIG %0.3 %Normal0.0-0.5The [facility] HospitalComment on above:Performed By: #### CBC ####[facility] [address]wh[address] [place], [place] [address]Dr.Gloriabenjamin AbrahamLYMPH #0.4 103/ulCritically low1.2-3.8The [facility] HospitalComment on above:Performed By: #### CBC ####[facility] [address]ztquf[address] [place], [place] [address]Dr.Domi RosarioMarlenemphocytes/100 WBC (Bld)3.8 %Critically low20.5-60.0The [facility] HospitalComment on above:Performed By: #### CBC ####[facility] [address]wn[address] [place], [place] [address]Dr.Gloriabenjamin RosarioMANUAL DIFF REQ NONormalThe [facility] HospitalComment on above:Performed By: #### CBC ####[facility] [address]jxv[address] [place], [place] [address]Dr. Domi RosarioKINGSBROOK [facility] (RBC) [Entitic mass]30.7 mlLvnmil07.9-34.0The [facility] Comment on above:Performed By: #### CBC ####[facility] [address]vbwtd[address] [place], [place] [address]Dr.Domi RosarioHC (RBC) [Mass/Vol]35.1 g/dL Quzwmb87.9-35.2The [facility] HospitalComment on above:Performed By: #### CBC ####[facility] [address] [place], [place] [address]Dr. Domi RosarioV (RBC) [Entitic vol]87.3 cTTxzdwr46.0-94.0[facility] Comment on above:Performed By: #### CBC ####[facility] [address] [place], [place] [address]Dr.Gloriabenjamin RichardO #0.6 103/ulNormal0.3-0.8 The [facility] SouthwoodsComment on above:Performed By: #### CBC ####[facility] [address] [place], [place] [address]Dr.Domi Rosario Monocytes/100 WBC (Bld)4.9 %Normal1.7-12.0The [facility] HospitalComment on above: Performed By: #### CBC ####[facility] [address]up[address] [place], [place] [address]Dr.Domi RosarioNEUT #10.3 103/ulCritically high1.4-6.5 The [facility] SouthwoodsComment on above:Performed By: #### CBC ####[facility] [address] [place], [place] [address]Dr.Domi Rosario Neutrophils/100 WBC (Bld)89.5 %Critically high43.0-75.0The [facility] Comment on above:Performed By: #### CBC ####[facility] [address] [place], [place] [address]Dr.Domi RosarioPlatelet mean volume (Bld) [Entitic vol]9.4 fLCritically low9.5-13.5The [facility] HospitalComment on above: Performed By: #### CBC ####[facility] [address]wlla[address] [place], [place] [address]Dr.Domi RosarioPLT145 103/ulCritically hwg773-926Vzf [facility] HospitalComment on above:Performed By: #### CBC ####[facility] Cp[address]zfvoct[address] [place], [place] [address]DrVeronica RosarioRBC5.12 106/ul Normal4.70-6.10The [facility] HospitalComment on above:Performed By: #### CBC ####[facility] [address] [place], [place] [address]Dr. Yilan KxlyyEVU63.5 103/ulCritically high4.0-11.0The [facility] HospitalComment on above:Performed By: #### CBC ####[facility] [address] [place] [address]Dr.Domi RosarioLIPASEon 71-49-0413Jhkoxw [Catalytic activity/Vol]213.0 U/IWedthh51.0-393.0The [facility] HospitalComment on above: Performed By: #### CMP, CHRIS, LIPA ####[facility] [address] [place] [address]Dr. Gloriabenjamin ChangPROF 14(COMP METB)on 10-33-2642Loebagl [Mass/Vol]3.9 g/dLNormal3.4-5.0The [facility] HospitalComment on above:Performed By: #### CMP, CHRIS, LIPA ####[facility] [address] [place], [place] [address]Dr. Domi RosarioAlbumin/Globulin [Mass ratio]1.0 {ratio}NormalThe [facility] HospitalComment on above:Performed By: #### CMP, CHRIS, LIPA ####[facility] [address] [place], [place] [address]Dr. Domi ChangALP [Catalytic activity/Vol]65 U/OHtlljk39-967Jcp [facility] HospitalComholland hospital on above:Performed By: #### CMP, CHRIS, LIPA ####[facility] [address] [place], [place] [address]Dr. Domi ChangALT [Catalytic activity/Vol]29 U/ZLnqnuy34-73Uac [facility] HospitalComment on above:Performed By: #### CMP, CHRIS, LIPA ####[facility] [address] [place], [place] [address]Dr. Domi ChangAnion gap [Moles/Vol]15.3 mmol/LNormal The [facility] HospitalComment on above:Performed By: #### CMP, CHRIS, LIPA ####[facility] [address] [place], [place] [address]Dr. Domi ChangAST [Catalytic activity/Vol]27 U/ZLfpemt57-42Zyi [facility] Comment on above:Performed By: #### CMP, CHRIS, LIPA ####[facility] [address] [place] [address]Dr. Yilan ChangBilirubin [Mass/Vol]0.6 mg/dLNormal0.2-1.0The [facility] HospitalComment on above:Performed By: #### CMP, CHRIS, LIPA ####[facility] [address] [place] [address]Dr. Yilan ChangCalcium [Mass/Vol]8.9 mg/dLNormal 8.5-10.1The [facility] HospitalComment on above:Performed By: #### CMP, CHRIS, LIPA ####[facility] [address] [place] [address]Dr. Yilan ChangChloride [Moles/Vol]104 mmol/XTjrnnz44-955Hjw [facility] Comment on above:Performed By: #### CMP, CHRIS, LIPA ####[facility] [address] [place], [place] [address]Dr. Yilan ChangCO2 [Moles/Vol]25.6 mmol/GQeodre40.0-32.0The [facility] HospitalComment on above: Performed By: #### CMP, CHRIS, LIPA ####[facility] [address] [place] [address]Dr. Yilan ChangCreatinine [Mass/Vol]1.08 mg/dLNormal 0.70-1.30The [facility] HospitalComment on above:Performed By: #### CMP, CHRIS, LIPA ####[facility] [address] [place] [address]Dr. Yilan ChangEGFR-AF CITIZEN [place]>60Normal>=60The [facility] HospitalComment on above: Performed By: #### CMP, CHRIS, LIPA ####[facility] [address] [place] [address]Dr. Yilan ChangEGFR-NON AF CITIZEN [place]>60Normal>=60The [facility] HospitalComment on above:Performed By: #### CMP, CHRIS, LIPA ####[facility] [address] [place] [address]Dr. Yilan Rosario Globulin (S) [Mass/Vol]4.1 g/dLNormSumma HealthComment on above: Performed By: #### CMP, CHRIS, LIPA ####[facility] [address] [place] [address]Dr. Yilan ChangGlucose [Mass/Vol]119 mg/dLCritically vqae52-708Dmf [facility] HospitalComment on above:Performed By: #### CMP, CHRIS, LIPA ####[facility] [address] [place] [address]Dr. Yilan ChangPotassium [Moles/Vol]4.9 mmol/LNormal3.5-5.1The [facility] HospitalComment on above:Performed By: #### CMP, CHRIS, LIPA ####[facility] [address] [place], [place] [address]Dr. Yilan ChangProtein [Mass/Vol]8.0 g/dLNormal6.4-8.2The [facility] HospitalComment on above:Performed By: #### CMP, CHRIS, LIPA ####[facility] [address]we[address] [place], [place] [address]Dr. Yilan ChangSodium [Moles/Vol]140 mmol/LNormal 136-145The [facility] HospitalComment on above:Performed By: #### CMP, CHRIS, LIPA ####[facility] [address] [place] [address]Dr. Yilan ChangUrea nitrogen [Mass/Vol]16.0 mg/dLNormal7.0-18.0The [facility] Comment on above:Performed By: #### CMP, CHRIS, LIPA ####[facility] Mcrfmlqyev[address] [place], [place] [address]Dr. Yilan ChangUrea nitrogen/Creatinine [Mass ratio]14.8 mg/mgNoOhioHealth Berger HospitalComment on above:Performed By: #### CMP, CHRIS, LIPA ####[facility] Thcrfrxnyn[address] [place], [place] [address]Dr. Yilan ChangCBC AUTO DIFFon 11-03-2022 BASO #0.1 103/ulNormal0.0-0.1The [facility] Hospitalment on above:Performed By: #### CBC ####[facility] G[address]stipj[address] [place], [place] [address]Dr.Yilan ChangBasophils/100 WBC (Bld)0.9 %Normal0.2-2.0The [facility] HospitalComment on above:Performed By: #### CBC ####[facility] [address]tqx[address] [place], [place] [address]Dr.Yilan ChangEO #0.4 103/ul Normal0.0-0.7The [facility] HospitalComment on above:Performed By: #### CBC ####[facility] Jlydqxtcyc[address] [place], [place] [address]Dr. Glorialan ChangEosinophils/100 WBC (Bld)4.7 %Normal0.9-7.0The [facility] Comment on above:Performed By: #### CBC ####[facility] [address]efyqu[address]or[address] [place], [place] [address]Dr.Domi ChangErythrocyte distribution width (RBC) [Ratio]13.2 %Gktmed13.0-15.0The [facility] on above: Performed By: #### CBC ####[facility] [address] [place], [place] [address]Dr.Domi ChangHematocrit (Bld) [Volume fraction]43.1 % Nyukob85.0-54.0The [facility] HospitalComment on above:Performed By: #### CBC ####[facility] Vagwaljeqc[address] [place], [place] [address]Dr. Glorialan ChangHemoglobin (Bld) [Mass/Vol]14.2 g/cSQhlqom46.0-18.0The [facility] Hospitalment on above:Performed By: #### CBC ####[facility] Fxarptwoat[address] [place], [place] [address]Dr.Glorialan ChangIG #0.01 10e3/ulNormal0.00-0.03The [facility] HospitalComment on above:Performed By: #### CBC ####[facility] [address] [place] [address]Dr. Domi RosarioIG %0.1 %Normal0.0-0.5The [facility] HospitalComment on above:Performed By: #### CBC ####[facility] [address] [place] [address]Dr.Domi RosarioLYMPH #3.0 103/ulNormal1.2-3.8The [facility] Comment on above:Performed By: #### CBC ####[facility] [address]jes[address]xshq[address] [place], [place] [address]Dr.Domi RosarioLymphocytes/100 WBC (Bld)40.0 %Gqsyhu15.5-60.0The [facility] HospitalComment on above:Performed By: #### CBC ####[facility] Apbjoirewg[address] [place], [place] [address]Dr. Domi RosarioMANUAL DIFF REQNONormalThe [facility] HospitalComment on above: Performed By: #### CBC ####[facility] [address] [place], [place] [address]Dr.Domi RosarioH (RBC) [Entitic mass]30.2 pgNormal 25.9-34.0The [facility] HospitalComment on above:Performed By: #### CBC ####[facility] [address]dsuaxzcl[address] [place], [place] [address]Dr. Domi RosarioMCHC (RBC) [Mass/Vol]32.9 g/dJDworeo54.9-35.2[facility] Comment on above:Performed By: #### CBC ####[facility] [address]cf[address] [place], [place] [address]Dr.Domi RosarioMCV (RBC) [Entitic vol]91.7 fL Dinmmn51.0-94.0The [facility] HospitalComment on above:Performed By: #### CBC ####[facility] Hiperblawm[address] [place], [place] [address]Dr. Domi RosarioMONO #0.8 103/ulNormal0.3-0.8The [facility] HospitalComment on above: Performed By: #### CBC ####[facility] [address] [place] [address]Dr.Glorialan ChangMonocytes/100 WBC (Bld)10.3 %Normal 1.7-12.0The [facility] HospitalComment on above:Performed By: #### CBC ####[facility] [address] [place] [address]Dr. Glorialan ChangNEUT #3.3 103/ulNormal1.4-6.5The [facility] HospitalComment on above: Performed By: #### CBC ####[facility] [address] [place] [address]Dr.Glorialan ChangNeutrophils/100 WBC (Bld)44.0 %Normal 43.0-75.0The [facility] HospitalComment on above:Performed By: #### CBC ####[facility] [address] [place] [address]Dr. Domi ChangPlatelet mean volume (Bld) [Entitic vol]9.7 fLNormal9.5-13.5The [facility] HospitalComment on above:Performed By: #### CBC ####[facility] Avcp[address]ty[address] [place], [place] [address]Dr.Domi VwktaGIH915 103/ul Usdzxa763-667Lbr [facility] HospitalComment on above:Performed By: #### CBC ####[facility] [address] [place] [address]Dr. Domi ChangRBC4.70 106/ulNormal4.70-6.10The [facility] HospitalComment on above: Performed By: #### CBC ####[facility] [address] [place], [place] [address]Dr.Glorialan ChangWBC7.6 103/ulNormal4.0-11.0The [facility] HospitalComment on above:Performed By: #### CBC ####[facility] Tut[address] [place], [place] [address]Dr.Domi RosarioLIPID PROFILEon 08-29-3788NMOI-HDL RATIO [facility]Com[facility] on above:Result Comment: 3.3 - 4.4 LOW RISK 4.4 - 7.1 AVERAGE RISK 7.1 - 11.0 MODERATE RISK >11.0 HIGH RISKPerformed By: #### MG, CMP, LIPID ####[facility] [address] [place] [id number]. Domi Rosario Cholesterol [Mass/Vol]121 mg/dLNormal<=200The [facility] on above: Performed By: #### MG, CMP, LIPID ####[facility] [address] [place] [address]Dr. Yilan ChangCholesterol in HDL [Mass/Vol]47 mg/dL Yuouqc16-88OjyTwin City Hospital on above:Performed By: #### MG, CMP, LIPID ####[facility] [address] [place] [address]Dr. Yilan ChangCholesterol in LDL [Mass/Vol]58.4 mg/dLEast [facility] on above:Performed By: #### MG, CMP, LIPID ####[facility] [address] [place] [id number]. Glorialan Rosario Cholesterol.total/Cholesterol in HDL [Mass ratio]2.6 {ratio}NormalTwin City Hospital on above:Performed By: #### MG, CMP, LIPID ####[facility] [address] [place] [id number]. Yilan ChangHDL NORMAL> or = 60 mg/dl - LOW CARDIOVASCULAR RISK <40 mg/dl - HIGH CARDIOVASCULAR RISKNormal The [facility] on above:Performed By: #### MG, CMP, LIPID ####[facility] [address] [place] [address]Dr. Yilan ChangLDL CALC NORMALSEE [facility]Comhol[facility] on above: Result Comment: <100 mg/dl OPTIMAL 100 - 129 mg/dl NEAR OR ABOVE OPTIMAL 130 - 159 mg/dl BORDERLINE HIGH 160 - 189 mg/dl HIGH >190 mg/dl VERY HIGHPerformed By: #### MG, CMP, LIPID ####[facility] [address] [place] [address]Dr. Domi RosarioTriglyceride [Mass/Vol]78 mg/dLNormal <=150The [facility] HospitalComment on above:Performed By: #### MG, CMP, LIPID ####[facility] [address] [place] [address]Dr. Domi RosarioVLDL CALC15.6 mg/dLNormalThe [facility] HospitalComment on above: Performed By: #### MG, CMP, LIPID ####[facility] [address] [place] [address]Dr. Domi RosarioMAGNESIUMon 47-05-8840Cksnqhyvk [Mass/Vol]1.9 mg/dLNormal1.8-2.4The [facility] HospitalComment on above:Performed By: #### MG, CMP, LIPID #### [facility] [address] [address] [address] Domi RosarioPROF 14(COMP METB)on 90-99-0914Xczcaoo [Mass/Vol]3.9 g/dLNormal 3.4-5.0The [facility] HospitalComment on above:Performed By: #### MG, CMP, LIPID ####[facility] [address] [place] [address]Dr. Domi RosarioAlbumin/Globulin [Mass ratio]1.0 {ratio}NormalThe [facility] Comment on above:Performed By: #### MG, CMP, LIPID ####[facility] [address] [place] [address]Dr. Glorialan ChangALP [Catalytic activity/Vol]62 U/WSjafiz62-345Ccq [facility] HospitalComment on above:Performed By: #### MG, CMP, LIPID ####[facility] [address] [place] [address]Dr. Glorialan ChangALT [Catalytic activity/Vol]22 U/L Zlcucm43-37Jeg [facility] HospitalComment on above:Performed By: #### MG, CMP, LIPID ####[facility] [address]tex[address] [place] [address]Dr. Yilan ChangAnion gap [Moles/Vol]10.4 mmol/LNormalThe [facility] Comment on above:Performed By: #### MG, CMP, LIPID ####[facility] [address]axq[address] [place] [address]Dr. Yilan ChangAST [Catalytic activity/Vol]18 U/CTivenr49-55Jxh [facility] HospitalComment on above:Performed By: #### MG, CMP, LIPID ####[facility] [address] [place], [place] [address]Dr. Yilan ChangBilirubin [Mass/Vol]0.6 mg/dLNormal 0.2-1.0The [facility] HospitalComment on above:Performed By: #### MG, CMP, LIPID ####[facility] [address] [place], [place] [address]Dr. Yilan ChangCalcium [Mass/Vol]8.9 mg/dLNormal8.5-10.1The [facility] HospitalComment on above:Performed By: #### MG, CMP, LIPID ####[facility] [address]tahgmkuc[address] [place], [place] [address]Dr. Yilan ChangChloride [Moles/Vol]103 mmol/PGpjtaq71-930Czh [facility] HospitalComment on above:Performed By: #### MG, CMP, LIPID ####[facility] [address]cjsoqxf[address] [place], [place] [address]Dr. Yilan ChangCO2 [Moles/Vol]27.9 mmol/IUbnzwd97.0-32.0The [facility] HospitalComment on above:Performed By: #### MG, CMP, LIPID ####[facility] [address]rwn[address] [place], [place] [address]Dr. Yilan ChangCreatinine [Mass/Vol]1.02 mg/dLNormal0.70-1.30The [facility] HospitalComment on above: Performed By: #### MG, CMP, LIPID ####[facility] [address]wpwgpi[address] [place], [place] [address]Dr. Yilan ChangEGFR-AF CITIZEN [place]>60Normal>=60The [facility] HospitalComment on above:Performed By: #### MG, CMP, LIPID ####[facility] [address] [place] [address]Dr. Yilan Rosario EGFR-NON AF CITIZEN OF [place]>60Normal>=60The [facility] HospitalComment on above:Performed By: #### MG, CMP, LIPID ####[facility] [address]ds[address] [place] [address]Dr. Yilan ChangGlobulin (S) [Mass/Vol]3.9 g/dLNormal The [facility] HospitalComment on above:Performed By: #### MG, CMP, LIPID ####[facility] [address]kv[address] [place] [address]Dr. Yilan ChangGlucose [Mass/Vol]95 mg/nNTipjma72-196Fzm [facility] HospitalComment on above:Performed By: #### MG, CMP, LIPID ####[facility] [address]lg[address] [place] [address]Dr. Yilan ChangPotassium [Moles/Vol]4.3 mmol/LNormal3.5-5.1The [facility] HospitalComment on above:Performed By: #### MG, CMP, LIPID ####[facility] [address]xl[address] [place], [place] [address]Dr. Yilan ChangProtein [Mass/Vol]7.8 g/dLNormal6.4-8.2The [facility] Comment on above:Performed By: #### MG, CMP, LIPID ####[facility] [address] [place], [place] [address]Dr. Yilan ChangSodium [Moles/Vol]137 mmol/IIfpvqq474-770Jff [facility] HospitalComment on above: Performed By: #### MG, CMP, LIPID ####[facility] Ahxzfa[address]vc[address] [place], [place] [address]Dr. Yilan ChangUrea nitrogen [Mass/Vol]16.0 mg/dL Normal7.0-18.0The [facility] HospitalComment on above:Performed By: #### MG, CMP, LIPID ####[facility] [address] [place], [place] [address]Dr. Yilan ChangUrea nitrogen/Creatinine [Mass ratio]15.7 mg/mgMagruder Memorial HospitalComment on above:Performed By: #### MG, CMP, LIPID ####[facility] [address] [place], [place] [address]Cq. Domi Rosario Basophils Auto (Bld) [#/Vol]Ordered By: Prince Velazquez on 55-09-9370Xvtxsuswj (Bld) [#/Vol]0.1 10*3/uL0.0-0.2FCleveland Clinic Marymount HospitalBasophils/100 WBC Auto (Bld)Ordered By: Prince Velazquez on 46-87-2529Sfvgwjkmd/100 WBC (Bld)1.1 %.[facility] TroyCreatinine and Glomerular filtration rate.predicted panel (S/P/Bld)Ordered By: Prince Velazquez on 33-88-5081Dnmrrvzinq [Mass/Vol]1.09 mg/dL0.64-1.27[facility] TroyEosinophils Auto (Bld) [#/Vol]Ordered By: Prince Velazquez on 28-15-6802Jeswfbgleal (Bld) [#/Vol] 0.3 10*3/uL0.0-0.45[facility] TroyEosinophils/100 WBC Auto (Bld)Ordered By: Prince Velazquez on 80-60-6330Smgcekucnml/100 WBC (Bld)4.2 %. [facility] TroyErythrocyte distribution width Auto (RBC) [Ratio]Ordered By: Prince Velazquez on 51-84-4587Ufjfjjbtsfq distribution width (RBC) [Ratio]13.4 %12.0-14.8[facility] TroyErythrocyte sedimentation rate by Photometric methodOrdered By: Prince Velazquez on 02-02-2022 ESR Photometric method (Bld) [Velocity]19 mm/hr0-19[facility] TroyEstimated glomerular filtration rate (GFR) non- AmericanOrdered By: Prince Velazquez on 39-45-8575KUZ/1.73 sq M.predicted among non-blacks MDRD (S/P/Bld) [Vol rate/Area]> 60 mL/MinKettering Health TroyHematocrit Auto (Bld) [Volume fraction]Ordered By: Prince Velazquez on 35-75-7242Nxhjkljrxz (Bld) [Volume fraction]43.7 %38.8-50.0[facility] Hemoglobin [Mass/volume] in BloodOrdered By: Prince Velazquez on 02-02-2022 Hemoglobin (Bld) [Mass/Vol]14.6 g/dL13.0-17.0[facility] Laboratory - Hematology and Cell countsOrdered By: Prince Velazquez on 02-02-2022 Nucleated RBC/100 WBC (Bld) [Ratio]0.2 %0-0.5FCleveland Clinic [facility] Hospital Leukocytes [#/volume] in Blood by Automated countOrdered By: Prince Velazquez on 05-96-4860JAJ (Bld) [#/Vol]7.6 10*3/uL4.5-11.0[facility] Lymphocytes Auto (Bld) [#/Vol]Ordered By: Prince Velazquez on 02-02-2022 Lymphocytes (Bld) [#/Vol]2.5 10*3/uL1.00-4.8[facility] Lymphocytes/100 WBC Auto (Bld)Ordered By: Prince Velazquez on 02-02-2022 Lymphocytes/100 WBC (Bld)32.5 %.[facility] Auto (RBC) [Entitic mass]Ordered By: Prince Velazquez on 14-83-5528PCP (RBC) [Entitic mass] 31.1 pg27.5-35.2FCleveland Clinic Marymount HospitalMCHC Auto (RBC) [Mass/Vol] Ordered By: Prince Velazquez on 47-00-6642VSYX (RBC) [Mass/Vol]33.4 g/dL32.5-35.6 [facility] TroyMCV Auto (RBC) [Entitic vol]Ordered By: Prince Velazquez on 61-39-9931ZAN (RBC) [Entitic vol]92.9 fL83.5-101[facility] TroyMonocytes Auto (Bld) [#/Vol]Ordered By: Prince Velazquez on 56-78-0146Yuzumdmks (Bld) [#/Vol]0.7 10*3/uL0.0-0.8[facility] TroyMonocytes/100 WBC Auto (Bld)Ordered By: Prince Velazquez on 02-02-2022 Monocytes/100 WBC (Bld)8.7 %.[facility] TroyNeutrophils Auto (Bld) [#/Vol]Ordered By: Prince Velazquez on 51-65-4355Rczytvcjckg (Bld) [#/Vol] 4.1 10*3/uL1.8-7.7FCleveland Clinic Marymount HospitalNeutrophils/100 WBC Auto (Bld)Ordered By: Prince Velazquez on 36-78-7320Jkhivwjapnx/100 WBC (Bld)53.5 %. [facility] TroyNo Panel InformationOrdered By: Prince Velazquez on 48-61-9057Nhgnfutlz GFR ()> 60 mL/MinKettering Health TroyComment on above:GFR estimated reference range: According to KDOQI guidelines, <60 ml/min/1.73m2 is sufficient todiagnose a patient with chronic kidney disease.Pharmacy Creatinine Clearance (ChemN/[facility] SpringfieldPlatelet mean volume Auto (Bld) [Entitic vol]Ordered By: Prince Velazquez on 18-69-9632Tojbxpej mean volume (Bld) [Entitic vol]8.0 fL6.6-10.1FCleveland Clinic Marymount HospitalPlatelets Auto (Bld) [#/Vol]Ordered By: Prince Velazquez on 64-22-8155Ablapltto (Bld) [#/Vol]197 10*3/lT753-868MwgnnkisbKettering Health TroyRBC Auto (Bld) [#/Vol]Ordered By: Prince Velazquez on 64-88-0343JPB (Bld) [#/Vol]4.70 10*6/uL3.90-5.60Brown Memorial Hospitalerum or plasma alanine aminotransferase measurement without P-5'-P (enzymatic activiOrdered By: Prince Velazquez on 30-94-6199BYX No additional P-5'-P [Catalytic activity/Vol]17 U/I92-28WywsvxuocBrown Memorial Hospitalerum or plasma alkaline phosphatase measurement (enzymatic activity/volume)Ordered By: Prince Velazquez on 02-02-2022 ALP [Catalytic activity/Vol]62 U/C04-44JaxxwmgbaBrown Memorial Hospitalerum or plasma aspartate aminotransferase measurement (enzymatic activity/volume)Ordered By: Prince Velazquez on 06-80-3186RRV [Catalytic activity/Vol]23 U/F85-72ZuecnbmrnBrown Memorial Hospitalerum or plasma urea nitrogen measurement (mass/volume) Ordered By: Prince Velazquez on 70-36-0216Nzah nitrogen [Mass/Vol]9 mg/dL9-23 [facility] TroyBasophils Auto (Bld) [#/Vol]Ordered By: Prince Velazquez on 56-27-6076Eaucvekok (Bld) [#/Vol]0.1 10*3/uL0.0-0.2FCleveland Clinic Marymount HospitalBasophils/100 WBC Auto (Bld)Ordered By: Prince Velazquez on 72-28-1826Zkfmedgoq/100 WBC (Bld)1.0 %[facility] TroyBlood hemoglobin measurement (mass/volume)Ordered By: Prince Velazquez on 10-13-2021 Hemoglobin (Bld) [Mass/Vol]14.0 g/dL13.0-17.0[facility] Blood leukocytes automated count (number/volume)Ordered By: Prince Velazquez on 06-04-6960XYR (Bld) [#/Vol]6.1 10*3/uL4.5-11.0[facility] Creatinine and Glomerular filtration rate.predicted panel (S/P/Bld)Ordered By: Prince Velazquez on 51-41-3603Pponhedywm [Mass/Vol]1.05 mg/dL0.64-1.27[facility] TroyEosinophils Auto (Bld) [#/Vol]Ordered By: Prince Velazquez on 17-26-1674Yaeiwwhnmeu (Bld) [#/Vol]0.2 10*3/uL0.0-0.45[facility] TroyEosinophils/100 WBC Auto (Bld)Ordered By: Prince Velazquez on 06-56-0317Krdqdalvcrq/100 WBC (Bld)3.7 %[facility] Erythrocyte distribution width Auto (RBC) [Ratio]Ordered By: Prince Velazquez on 56-47-9630Vhzsijmwkwi distribution width (RBC) [Ratio]13.3 %12.0-14.8[facility] TroyErythrocyte sedimentation rate by Photometric method Ordered By: Prince Velazquez on 82-74-8575LGZ Photometric method (Bld) [Velocity] 22 mm/hr0-19[facility] TroyEstimated glomerular filtration rate (GFR) non- AmericanOrdered By: Prince Velazquez on 24-68-8121BJQ/1.73 sq M.predicted among non-blacks MDRD (S/P/Bld) [Vol rate/Area]> 60 mL/Min [facility] TroyHematocrit Auto (Bld) [Volume fraction]Ordered By: Prince Velazquez on 21-37-1027Khnbciayxj (Bld) [Volume fraction]41.6 % 38.8-50.0[facility] TroyLaboratory - Hematology and Cell countsOrdered By: Prince Velazquez on 19-68-5719Gvskiydop RBC/100 WBC (Bld) [Ratio]0.1 %0-0.5FCleveland Clinic Marymount HospitalLymphocytes Auto (Bld) [#/Vol] Ordered By: Prince Velazquez on 45-02-1222Yebaxnaxjew (Bld) [#/Vol]2.0 10*3/uL 1.00-4.8[facility] TroyLymphocytes/100 WBC Auto (Bld)Ordered By: Prince Velazquez on 23-52-5459Qwopdwnxzuo/100 WBC (Bld)32.6 %[facility] TroyMCH Auto (RBC) [Entitic mass]Ordered By: Prince Velazquez on 85-18-5137WRB (RBC) [Entitic mass]31.0 pg27.5-35.2FC[facility] Clinic Marymount HospitalMCHC Auto (RBC) [Mass/Vol]Ordered By: Prince Velazquez on 58-88-8487NDGA (RBC) [Mass/Vol]33.6 g/dL32.5-35.6FCleveland Clinic Marymount HospitalMCV Auto (RBC) [Entitic vol]Ordered By: Prince Velazquez on 79-15-6538HAQ (RBC) [Entitic vol]92.2 fL83.5-101[facility] TroyMonocytes Auto (Bld) [#/Vol] Ordered By: Prince Velazquez on 28-62-0867Ljgwdtbvx (Bld) [#/Vol]0.6 10*3/uL 0.0-0.8[facility] TroyMonocytes/100 WBC Auto (Bld)Ordered By: Prince Velazquez on 30-39-2257Jpckpggwo/100 WBC (Bld)10.4 %[facility] TroyNeutrophils Auto (Bld) [#/Vol]Ordered By: Prince Velazquez on 97-92-1518Gxhgrsxtfvx (Bld) [#/Vol]3.2 10*3/uL1.8-7.7FCleveland Clinic Marymount HospitalNeutrophils/100 WBC Auto (Bld)Ordered By: Prince Velazquez on 10-13-2021 Neutrophils/100 WBC (Bld)52.3 %[facility] TroyNo Panel InformationOrdered By: Prince Velazquez on 94-46-9464Nljzxkjdg GFR ()> 60 mL/MinKettering Health TroyComment on above:GFR estimated reference range: According to KDOQI guidelines, <60 ml/min/1.73m2 is sufficient todiagnose a patient with chronic kidney disease.Pharmacy Creatinine Clearance (ChemN/[facility] SpringfieldPlatelet mean volume Auto (Bld) [Entitic vol]Ordered By: Prince Velazquez on 37-44-8633Umeomhbs mean volume (Bld) [Entitic vol]8.8 fL6.6-10.1FCleveland Clinic Marymount HospitalPlatelets Auto (Bld) [#/Vol]Ordered By: Prince Velazquez on 58-29-5930Yhvqstkku (Bld) [#/Vol]179 10*3/jI885-103FoagtdunlKettering Health TroyRBC Auto (Bld) [#/Vol]Ordered By: Prince Velazquez on 75-80-9694VUA (Bld) [#/Vol]4.51 10*6/uL3.90-5.60Brown Memorial Hospitalerum or plasma alanine aminotransferase measurement without P-5'-P (enzymatic activiOrdered By: Prince Velazquez on 45-33-1478FFM No additional P-5'-P [Catalytic activity/Vol]26 U/X25-81WczkbbzegBrown Memorial Hospitalerum or plasma alkaline phosphatase measurement (enzymatic activity/volume)Ordered By: Prince Wallrow on 95-49-1594WSR [Catalytic activity/Vol]57 U/C98-58LirqgasyfBrown Memorial Hospitalerum or plasma aspartate aminotransferase measurement (enzymatic activity/volume)Ordered By: Prince Caroline on 43-46-9627NSI [Catalytic activity/Vol]26 U/K79-46LvbisqarmBrown Memorial Hospitalerum or plasma urea nitrogen measurement (mass/volume) Ordered By: Princelyudmila Velazquez on 86-98-3483Tlbz nitrogen [Mass/Vol]9 mg/dL9-23 [facility] TroyCBC (INCLUDES DIFF/PLT)on 88-03-7600Mywhfkjiu (Bld) [#/Vol]0.068 10*3/uLNormal0-200Quest DiagnosticsComment on above:Performed By: #### 6399, 33245, 7600, 809 #### [facility] [place] [address] [employer]: Jak Lanza MDBasophils/100 WBC (Bld)0.9 %NormalQuest DiagnosticsComment on above:Performed By: #### 6399, 70175, 7600, 809 #### [facility] [place] [address] [employer]: Jak Lanza MDEosinophils (Bld) [#/Vol]0.285 10*3/uLNormal 15-500Quest DiagnosticsComment on above:Performed By: #### 6399, 36232, 7600, 809 #### [facility] [place] [address] [employer]: Jak Lanza MDEosinophils/100 WBC (Bld)3.8 %NormalQuest DiagnosticsComment on above:Performed By: #### 6399, 68777, 7600, 809 #### [facility] [place] [address] [employer]: Jak Lanza MDErythrocyte distribution width (RBC) [Ratio] 12.8 %Cixejh35.0-15.0Quest DiagnosticsComment on above:Performed By: #### 6399, 79466, 7600, 809 #### [facility] [place] [address] [employer]: Jak Lanza MDHematocrit (Bld) [Volume fraction]41.9 %Normal 38.5-50.0Quest DiagnosticsComment on above:Performed By: #### 6399, 52230, 7600, 809 #### [facility] [place] [address] [employer]: Jak Lanza MDHemoglobin (Bld) [Mass/Vol]13.9 g/dLNormal 13.2-17.1Quest DiagnosticsComment on above:Performed By: #### 6399, 21411, 7600, 809 #### [facility] [address] [place] [address] [employer]: Jak Lanza MDLymphocytes (Bld) [#/Vol]2.873 10*3/uLNormal 850-3900Quest DiagnosticsComment on above:Performed By: #### [id number], 98840, 7600, 809 #### [facility] of [place] [address] [employer] Molder: Jak Lanza MDLymphocytes/100 WBC (Bld)38.3 %NormalQuest DiagnosticsComment on above:Performed By: #### [id number], 53413, 7600, 809 #### [facility] of [place] [address] [employer] Molder: Jak ALYCH (RBC) [Entitic mass]30.1 riKkiaxo51.0-33.0 [facility] DiagnosticsComment on above:Performed By: #### [id number], 30642, 7600, 809 #### [facility] of [address], [address] [place] [address] [employer]older: Jak Lanza MDMCHC (RBC) [Mass/Vol]33.2 g/wLZgzjub55.0-36.0 [facility] DiagnosticsComment on above:Performed By: #### [id number], 79410, 7600, 809 #### [facility] of [address], [address] [place] [address] [employer]set Molder: Jak Lanza MDMCV (RBC) [Entitic vol]90.7 eWPddhxh84.0-100.0 Quest DiagnosticsComment on above:Performed By: #### 6399, 79962, 7600, 809 #### [facility] of [address], [address] [place] [address] Airset Molder: Jak Lanza MDMonocytes (Bld) [#/Vol]0.645 10*3/uLNormal 200-950Quest DiagnosticsComment on above:Performed By: #### 6399, 60568, 7600, 809 #### [facility] of [address], [address] [place] [address] Airset Molder: Jak Lanza MDMonocytes/100 WBC (Bld)8.6 %NormalQuest DiagnosticsComment on above:Performed By: #### 6399, 94376, 7600, 809 #### [facility] of [address], [address] [place] [address] Airset Molder: Jak Lanza MDNeutrophils (Bld) [#/Vol]3.63 10*3/uLNormal 1500-7800Quest DiagnosticsComment on above:Performed By: #### 6399, 87602, 7600, 809 #### [facility] of [address], [address] [place] [address] Airset Molder: Jak Lanza MDNeutrophils/100 WBC (Bld)48.4 %NormalQuest DiagnosticsComment on above:Performed By: #### 6399, 26742, 7600, 809 #### [facility] of [address], [address] [place] [address] Airset Molder: Jak Lanza MDPlatetommy mean volume (Bld) [Entitic vol]10.2 fLNormal7.5-12.5Quest DiagnosticsComment on above:Performed By: #### 6399, 43704, 7600, 809 #### [facility] of [address], [address] [place] [address] Airset Molder: Jak Lanza MDPlatelets (Bld) [#/Vol]238 10*3/uLNormal 140-400Quest DiagnosticsComment on above:Performed By: #### 6399, 68518, 7600, 809 #### [facility] of [address], [address] [place] [address] Airset Molder: Jak Lanza MDRBC (Bld) [#/Vol]4.62 10*6/uLNormal4.20-5.80 [facility] DiagnosticsComment on above:Performed By: #### 6399, 00341, 7600, 809 #### [facility] of [address], [address] [place] [address] Airset Molder: Jak Lanza MDWBC (Bld) [#/Vol]7.5 10*3/uLNormal3.8-10.8 [facility] DiagnosticsComment on above:Performed By: #### 6399, 58746, 7600, 809 #### [facility] of [address], [address] [place] [address] Airset Molder: Jak Lanza MDCOMPREHENSIVE METABOLIC PANELon 03-12-2021 Albumin [Mass/Vol]4.2 g/dLNormal3.6-5.1Quest DiagnosticsComment on above: Performed By: #### 6399, 93667, 7600, 809 #### [facility] of [address], [address] [place] [address] Airset Molder: Jak Lanza MDAlbumin/Globulin [Mass ratio]1.2 {ratio}Normal 1.0-2.5Quest DiagnosticsComment on above:Performed By: #### 6399, 06937, 7600, 809 #### [facility] of [address], [address] [place] [address] Airset Molder: Jak Lanza MDALP [Catalytic activity/Vol]63 U/MQvpvgl52-742 Quest DiagnosticsComment on above:Performed By: #### 6399, 43021, 7600, 809 #### [facility] of [place] [address] Airset Molder: Jak Lanza MDALT [Catalytic activity/Vol]14 U/LNormal9-46 [facility] DiagnosticsComment on above:Performed By: #### 6399, 81449, 7600, 809 #### [facility] of [address], [address] [place] [address] Airset Molder: Jak Lanza MDAST [Catalytic activity/Vol]15 U/HRllisn89-52 [facility] DiagnosticsComment on above:Performed By: #### 6399, 47615, 7600, 809 #### [facility] of [place] [address] Airset Molder: Jak Lanza MDBilirubin [Mass/Vol]0.6 mg/dLNormal0.2-1.2 [facility] DiagnosticsComment on above:Performed By: #### 6399, 86200, 7600, 809 #### [facility] of [place] [address] Airset Molder: Jak Lanza MDBUN/CREATININE RATIONOT APPLICABLENormal6-22 [facility] DiagnosticsComment on above:Performed By: #### 6399, 62396, 7600, 809 #### [facility] of [address], [address] [place] [address] Airset Molder: Jak Lanza MDCalcium [Mass/Vol]9.4 mg/dLNormal8.6-10.3Quest DiagnosticsComment on above:Performed By: #### 6399, 14981, 7600, 809 #### [facility] [address], [address] [place] [address] Airset Molder: Jak Lanza MDChloride [Moles/Vol]106 mmol/RSpdxdd56-579 Quest DiagnosticsComment on above:Performed By: #### 6399, 81318, 7600, 809 #### [facility] [place] [address] Airset Molder: Jak Lanza MDCO2 [Moles/Vol]26 mmol/IKcigrr55-79Gpdpg DiagnosticsComment on above:Performed By: #### 6399, 15070, 7600, 809 #### [facility] [place] [address] Airset Molder: Jak Lanza MDCreatinine [Mass/Vol]1.22 mg/dLNormal0.70-1.25 [facility] DiagnosticsComment on above:Result Comment: For patients >49 years of age, the reference limit for Creatinine is approximately 13% higher for people identified as -Ukrainian.Performed By: #### 6399, 55812, 7600, 809 #### [facility] [place] [address] Airset Molder: Jak Lanza MDeGFR NON-AFR. GAUNKOLR49 mL/min/1.48a7Iwqlwa> OR = 60Quest DiagnosticsComment on above:Performed By: #### 6399, 20472, 7600, 809 #### [facility] [place] [address] Airset Molder: Jak Lanza MDGFR/1.73 sq M.predicted among blacks MDRD (S/P/Bld) [Vol rate/Area]72 mL/min/{1.73_m2}Normal> OR = 60[facility] Comment on above:Performed By: #### 6399, 74081, 7600, 809 #### [facility] of [place] [address] Airset Molder: Jak Lanza MDGlobulin (S) [Mass/Vol]3.4 g/dLNormal1.9-3.7 [facility] DiagnosticsComment on above:Performed By: #### 6399, 42716, 7600, 809 #### [facility] of [address], [address] [place] [address] Airset Molder: Jak Lanza MDGlucose [Mass/Vol]85 mg/kFLfhhni11-89Cspki DiagnosticsComment on above:Result Comment: Fasting reference intervalPerformed By: #### 6399, 52618, 7600, 809 #### [facility] of [address], [address] [place] [address] Airset Molder: Jak Lanza MDPotassium [Moles/Vol]4.6 mmol/LNormal3.5-5.3 [facility] DiagnosticsComment on above:Performed By: #### 6399, 15093, 7600, 809 #### [facility] of [place] [address] Airset Molder: Jak Lanza MDProtein [Mass/Vol]7.6 g/dLNormal6.1-8.1Quest DiagnosticsComment on above:Performed By: #### 6399, 05216, 7600, 809 #### [facility] of [place] [address] Airset Molder: Jak Lanza MDSodium [Moles/Vol]140 mmol/DXiwebs290-683Feajp DiagnosticsComment on above:Performed By: #### 6399, 85468, 7600, 809 #### [facility] of [place] [address] Airset Molder: Jak Lanza MDUrea nitrogen [Mass/Vol]17 mg/dLNormal7- Quest DiagnosticsComment on above:Performed By: #### 6399, 76201, 7600, 809 #### [facility] [address], [address] [place] [address] Airset Molder: Jak Lanza MDLIPID PANEL, STANDARDon 35-85-9920Moifnvlzsqm [Mass/Vol]129 mg/dLNormal<200Quest DiagnosticsComment on above:Order Comment: FASTING:YES FASTING: YESPerformed By: #### 6399, 01421, 7600, 809 #### [facility] [address], [address] [place] [address] Airset Molder: Jak Lanza MDCholesterol in HDL [Mass/Vol]44 mg/dLNormal> OR = 40Quest DiagnosticsComment on above:Order Comment: FASTING:YES FASTING: YESPerformed By: #### 6399, 10826, 7600, 809 #### [facility] [address], [address] [place] [address] Airset Molder: Jak Lanza MDCholesterol in LDL [Mass/Vol]65 mg/dLNormal [facility] DiagnosticsComment on above:Order Comment: FASTING:YES FASTING: YESResult Comment: Reference range: <100 Desirable range <100 mg/dL for primary prevention; <70 mg/dL for patients with CHD or diabetic patients with > or = 2 CHD risk factors. LDL-C is now calculated using the Joann calculation, which is a validated novel method providing better accuracy than the Friedewald equation in the estimation of LDL-C. Parrish JACOBSEN et al. TUAN. 2013;310(19): 0440-7585 (http://education.MobileIgniter.e-contratos/faq/IWV800)Performed By: #### 6399, 92890, 7600, 809 #### [facility] [address], [address] [place] [address] Airset Molder: Jak Lanza MDCholesterol.total/Cholesterol in HDL [Mass ratio]2.9 {ratio}Normal<5.0Quest DiagnosticsComment on above:Order Comment: FASTING:YES FASTING: YESPerformed By: #### 6399, 73016, 7600, 809 #### [facility] [place] [address] Airset Molder: Jak Lanza MDNON HDL ULATUFSAGSX43 mg/dL (calc)Normal<130 [facility] DiagnosticsComment on above:Order Comment: FASTING:YES FASTING: YESResult Comment: For patients with diabetes plus 1 major ASCVD risk factor, treating to a non-HDL-C goal of <100 mg/dL (LDL-C of <70 mg/dL) is considered a therapeutic option.Performed By: #### 6399, 05575, 7600, 809 #### [facility] [place] [address] Airset Molder: Jak Lanza MDTriglyceride [Mass/Vol]115 mg/dLNormal<150 [facility] DiagnosticsComment on above:Order Comment: FASTING:YES FASTING: YESPerformed By: #### 6399, 53013, 7600, 809 #### [facility] [place] [address] Airset Molder: Jak Lanza MDSED RATE BY MODIFIED WESTERGRENon 03-12-2021 SED RATE BY MODIFIED WESTERGREN9 mm/hNormal< OR = 20Quest DiagnosticsComment on above:Performed By: #### 6399, 64033, 7600, 809 #### [facility] [place] [address] Airset Molder: Jak Lanza MD.eGFRon 04-57-0329hIQN AA>60Normal>=60 [facility] HospitalComment on above:Result Comment: See comment. Performed By: #### EGFR #### [address] [address]fWUC Non-AA>60Normal>=60[facility] HospitalComment on above:Result Comment: Stages of Chronic Kidney Disease GFR Stage 3a Mild to moderate loss of kidney function 59 to 45 Stage 3b Moderate to severe loss of kidney function 44 to 33 Stage 4 Severe loss of kidney function 29 to 15 Stage 5 Kidney failure Less than 15 GFR calculated using the CKD-EPI Creatinine Equation (2009): eGFR = 141 X min(SCr/?, 1)? X max(SCr /?, 1)-1.209 X 0.993Age X 1.018 [if female] X 1.159 [if Black] Abbreviations/Units: eGFR (estimated glomerular filtration rate) = mL/min/1.73 m2 SCr (standardized serum creatinine) = mg/dL ? = 0.7 (females) or 0.9 (males) ? = -0.329 (females) or -0.411 (males) min = indicates the minimum of SCr/? or 1 max = indicates the maximum of SCr/? or 1 age = yearsPerformed By: #### EGFR #### [address] [address]Txsqw Metabolic Profileon 23-74-8643Fgztk gap [Moles/Vol]16 mmol/LNormal7-17[facility] HospitalComment on above:Performed By: #### .Automated Diff #### [address] [address]Bgitmsy [Mass/Vol]9.0 mg/dLNormal8.5-10.3BSouthwest General Health CenterComment on above:Performed By: #### .Automated Diff #### [address] [address]Fphlakvs [Moles/Vol]103 mmol/QVernhn21-504CfjfxloscOhio Valley HospitalComment on above:Performed By: #### .Automated Diff #### [address] [address]WQ4 [Moles/Vol]20 mmol/LIwc45-41AagtstvrdOhio Valley Hospital Comment on above:Performed By: #### .Automated Diff #### [address] [address]Wkuzjfiuar [Mass/Vol]1.16 mg/dLNormal0.61-1.24[facility] HospitalComment on above:Performed By: #### .Automated Diff #### [address] [address]Bbmvwav [Mass/Vol]237 mg/dNYmeq43-37HxviuctwmOhio Valley HospitalComment on above:Performed By: #### .Automated Diff #### [address] [address]Gjiuioobb [Moles/Vol]4.5 mmol/LNormal3.4-4.8BSouthwest General Health CenterComment on above:Performed By: #### .Automated Diff #### [address] [address]Bogpwu [Moles/Vol]134 mmol/JRphicr896-944UkxzdcxfrOhio Valley HospitalComment on above:Performed By: #### .Automated Diff #### [address] [address]Eorm nitrogen [Mass/Vol]14 mg/dLNormal8-26[facility] HospitalComment on above:Performed By: #### .Automated Diff #### [address] [address]Yppv nitrogen/Creatinine [Mass ratio]12.1 mg/olMrqzfg35.0-20.0 [facility] HospitalComment on above:Performed By: #### .Automated Diff #### [address] [address]IBG w/ Diffon 23-58-5534Umtxqdgssqt distribution width (RBC) [Ratio]13.1 %Qhqglo07.6-14.8BSouthwest General Health CenterComment on above: Performed By: #### .Automated Diff #### [address] [address]Fbmrvpnpns (Bld) [Volume fraction]40.1 %Low41.0-53.0[facility] HospitalComment on above:Performed By: #### .Automated Diff #### [address] [address]Pugzbuqrjv (Bld) [Mass/Vol]13.0 g/dLLow13.5-17.5BSouthwest General Health CenterComment on above:Performed By: #### .Automated Diff #### [place] [address]MCH (RBC) [Entitic mass]29.4 doRthzwo32.0-35.0[facility] HospitalComment on above:Performed By: #### .Automated Diff #### [place] [address]MCHC32.5 %Fhlpty95.0-37.0[facility] HospitalComment on above:Performed By: #### .Automated Diff #### [place] [address]MCV (RBC) [Entitic vol]90.5 gCIwidie30.0-100.0[facility] HospitalComment on above:Performed By: #### .Automated Diff #### [place] [address]Platelet197 x10*3/wyBAzjywd383-379OxtroeectOhio Valley HospitalComment on above:Performed By: #### .Automated Diff #### [place] [address]Platelet mean volume (Bld) [Entitic vol]7.6 fLNormal6.7-10.6 [facility] HospitalComment on above:Performed By: #### .Automated Diff #### [address] [address]MRW3.43 x10*6/mcLNormal4.30-5.80[facility] Comment on above:Performed By: #### .Automated Diff #### [place] [address]WBC16.0 x10*3/mcLHigh4.5-11.0[facility] Comment on above:Performed By: #### .Automated Diff #### [place] [address]Diff Autoon 72-69-4887Lxqy Absolute0.0 x10*3/mcLNormal0.0-0.2 [facility] HospitalComment on above:Performed By: #### .Automated Diff #### [address] [address]Bzkyedpir/100 WBC (Bld)0.1 %Normal0.0-1.2BAultman Hospital SystemComment on above:Performed By: #### .Automated Diff #### [address] [address]Fuv Absolute0.0 x10*3/mcLNormal0.0-0.4BAultman Hospital SystemComment on above:Performed By: #### .Automated Diff #### [address] [address]Vvjgakqqhoh/100 WBC (Bld)0.0 %Normal0.0-6.1BAultman Hospital SystemComment on above:Performed By: #### .Automated Diff #### [address] [address]Zzrgg Absolute1.2 x10*3/mcLNormal1.0-4.8BAultman Hospital SystemComment on above:Performed By: #### .Automated Diff #### [address] [address]Sceoujqvkwm/100 WBC (Bld)7.3 %Low27.2-40.8BAultman Hospital SystemComment on above:Performed By: #### .Automated Diff #### [address] [address]Eyln Absolute0.5 x10*3/mcLNormal0.3-1.1BAultman Hospital SystemComment on above:Performed By: #### .Automated Diff #### [address] [address]Dmatpdtlf/100 WBC (Bld)3.0 %Low4.7-13.9BAultman Hospital SystemComment on above:Performed By: #### .Automated Diff #### [address] [address]Xvldqe Mapvjkjh28.3 x10*3/mcLHigh1.8-7.7BSouthwest General Health CenterComment on above:Performed By: #### .Automated Diff #### [address] [address]Ehezml Auto89.6 %High47.2-70.8BSouthwest General Health Center Comment on above:Performed By: #### .Automated Diff #### [address] [address]Msfgsnuvk Clinical Summaryon 86-50-8993Iwdzricdn Clinical Summary[address] [address] [address] [address] Clinical Summary Person Information Name: Elian Cavazos Age: 65 Years : 1955 Sex: Male PCP: Alek Shelton DO Marital Status: Phone: PCP: [phone] Race: White Ethnicity: Not or Language: Persian Visit Id: Visit Reason: Speciality: Acuity: Enc Type: Observation Med Service: Surgery Arrival: 01/19/2021 11:32:01 Discharge: Dispo Type: Address: [address] [place] [address] Diagnosis: Status post total right knee replacement Discharged To: Home Treatments: Devices/Equipment: Professional Skilled Services: Special Services and Community Resources: Mode of Discharge Transportation: Discharge Orders Activity Restrictions Activity as tolerated-follow precautions. Activity Restrictions Continue to use your walker, crutches or cane as instructed by your physical therapist. Your therapist will tell you when you can discontinue use of walking aids. For many patients walking aids are needed only for the first few days after surgery. Activity Restrictions Exercise twice a day using the exercises on the therapy instructions sheet. It is good to continue this exercise regimen indefinitely. Activity Restrictions Walking is the best form of exercise. Begin with 15 minutes 3-4 times per day. Increase your walking time as tolerated. Activity Restrictions Continue to wear the anti-embolic (SHIRA) stockings 22-24 hours per day for 4 weeks as tolerable. Activity Restrictions If the stockings are extremely uncomfortable and intolerable, you may discontinue them. You may use remedios bandage wrapped from foot to mid-thigh Activity Restrictions Sexual activity may resume when comfortable within range of motion precautions. Discharge Patient Education Review and attach [facility] Hip/Knee Inpatient Discharge Special Instructions Bruising may occur in the thigh for knee replacement patients. Do not be alarmed if this occurs. Discharge Special Instructions Common symptoms after total joint replacement surgery include: redness, bruising, drainage, or swelling at the incision site. If there symptoms progressively worsen anddo not subside after rest, elevating and icing, please contact your doctor. Discharge Special Instructions You may use your cooling device continuously with a cloth between the cuff and your skin. Alternatively, apply ice to operative area 20 minutes per hour while awake. Apply cloth between ice and skin for protection. Discharge Special Instructions Patient should attempt to control pain with Tylenol and Anti-Inflammatory (if prescribed) initially. If pain is not controlled then use narcotic pain medication. Discharge Special Instructions Maintain a reasonable weight to avoid stress on your hip or knee andother joints. Discharge Special Instructions Inform all doctors who are treating you, including your dentist thatyou have a total joint implant. Some long-term precautions may need to be taken. Discharge Special Instructions Avoid all dental procedures and cleanings for 90 days after your surgery. Discharge Special Instructions If your dentist feels manipulation of your gum/teeth may introduce bacteria into your blood, they will need to prescribe antibiotics. Discharge Special Instructions Watch for these warning sign/symptoms and call your doctor if any occurs: Trouble breathing or shortness of breath; Prolonged nausea or vomiting; Chills or fever above 101 degrees F; Pain getting worse or not being helped by pain medication. Discharge Wound Care Leave the Mepilex bandage in place for one week after your surgery, then remove. Then replace with extra dressing given at time of discharge and leave intact until follow up appointment. Allergies Betadine (Swelling) Functional Status: Sensory Deficits: None History of Falls: Mobility Assistance Prior to Admission: ADLs: Minimal assistance Gait: Unable to assess Ambulation Assist: Assistive Device: Gait belt, Walker Special Orthopedic Devices: Current Level of Assistance for Self-Care/Mobility: Cognitive Status: Orientation: Orientation Assessment Oriented x 4 Level of Consciousness: Alert Characteristics of Speech: Clear Aspiration Risk: None Affect/Behavior: Appropriate, Calm, Cooperative Laboratory or Other Results This Visit (last charted value for your 01/19/2021 visit) No Laboratory or Other Results This Visit Measurements: Height: Weight: Blood Pressure: 143 mmHg / BMI: Respiratory: Respirations: Unlabored Respiratory Symptoms: None Cardiovascular: Heart Sounds: Heart Rhythm: Regular Gastrointestinal: GI Symptoms: Bowel Sounds: Present Vital Signs: Temp Axillary: Temp Temporal Artery: 36.3 degC Temp Oral: 36.7 degC Temp Rectal: Apical Heart Rate: Peripheral Pulse Rate: (more content not included)...[facility] HospitalOr[facility] Progress Noteon 20-24-3125Xulsfyfgwj Progress Note Orthopedic: Postoperative day #1 status post right total knee replacement Subjective: Patient states that they're doing quite well with no specific complaints at this time. Patient wishes at this time to be discharged to home. Objective: The patient's dressings is dry. Range of motion of the right knee is 0-100. There is no signs of drop foot. There is no sign of DVT or infection. Patient has good pedal pulse, and capillary refill is less than 2 seconds. Vital Signs (last 24 hrs) Last Charted Temp Oral 36.7 degC (JAN 20 05:59) Heart Rate Peripheral 62 bpm (JAN 20 05:59) Resp Rate 16 br/min (JAN 20 02:00) SBP H 143mmHg (JAN 20 05:59) DBP L 55mmHg (JAN 20 05:59) SpO2 94 % (JAN 20 05:59) Weight 121.3 kg (JAN 20 05:00) Height 183 cm (JAN 19 17:44) BMI 36.13 (JAN 19 17:44) No qualifying data available Physical Therapy Results Event Name Event Result Date/Time Ambulation Distance 100 01/19/21 21:00:00 Assessment: Status post right total knee replacement Plan: At this time we plan to discharge the patient home. The patient will be discharged to home with assistance from family and friends. All other questions have been answered to the patient's satisfaction. The patient will follow-up in 10-[address] Germain or myself. Electronically signed by Freddy MARTELLAlex 01/20/21 07:54 EDTNoC[facility] CoV2 Agon 23-82-8713Wsqoyeqp in healthcare?UnknownNormWayne HealthCare Main CampusComment on above:Performed By: #### [id number] #### [address] [address]Wdbxd care resident?UnknownNormWayne HealthCare Main Campus Comment on above:Performed By: #### [id number] #### [address] [address]Sx ICU?NoNormalOhio Valley HospitalComment on above: Performed By: #### [id number] #### [address] [address]Sffmfykjq status?Not ApplicableNormWayne HealthCare Main CampusComment on above:Performed By: #### [id number] #### [address] [address]IYGS-SsE-8 (COVID-19) RNA DIEGO+probe Ql (Unsp spec)Normal NegativeOhio Valley HospitalComment on above:Result Comment: * Negative (Non-Reactive) * Negative results from patients with symptom onset outside of one to six days should be treated as presumptive. A false-negative test result may occur if the level of viral antigen in a sample is below the detection limit of the test or if the sample was collected or transported improperly; therefore, a negative test result does not eliminate the possibility of SARS-CoV-2 infection. Negative results should not be used as the sole basis for treatment or patient management decisions, including infection control decisions. Negative results should be considered in the context of a patient?s recentexposures, history and the presence of clinical signs and symptoms consistent with COVID-19. Negative ADDITIONAL INFORMATION: Testing performed on the [employer] using the SARS-CoV-2 Antigen test. Results are for the identification of SARS-CoV-2 nucleocapsid antigen. The [employer] SARS-CoV-2 Antigen test can detect bothviable and non-viable SARS-CoV-2 material. The VITROS SARS-CoV-2 Antigen test performance depends on antigen load and may not correlate with other diagnostic methods performed on the same specimen. The performance of this test has not been evaluated for use in patients without signs and symptoms ofrespiratory infection. Test results should be considered in the context of all available clinical and diagnostic information, including patient history and other test results. In the [place], the VITROS SARS-CoV-2 Antigen test is only for use under the Food and Drug Administration?s EmergencyUse Authorization. HCP Fact Sheet: https://www.fda.gov/media/084080/download Patient Fact Sheet: https://www.fda.gov/media/873176/downloadPerformed By: #### [id number] #### [address] [address]HAHX-RqQ-9 (COVID-19) RNA DIEGO+probe Ql (Unsp spec)NoNormal [facility] HospitalComment on above:Performed By: #### [id number] #### [address] [address]VHWU-CnS-0 (COVID-19) RNA DIEGO+probe Ql (Unsp spec)UnknownNormal [facility] HospitalComment on above:Performed By: #### [id number] #### [address] [address]Rhhgwnjsowu as defined by CDC?NoNormalOhio Valley HospitalComment on above:Performed By: #### [id number] #### [address] [address]UDI (H/H, RBC, INDICES, WBC, PLT)on 29-99-5616Sspruqnhizt distribution width (RBC) [Ratio]12.7 %Dnztmg03.0-15.0Quest DiagnosticsComment on above:Performed By: #### 44672, 85104, 496, 1759, 40897, 927, 549, 88992 #### [facility] [address], [address] [place] [id number] Airset Molder: Jak Lanza MDHematocrit (Bld) [Volume fraction]43.8 %Normal 38.5-50.0Quest DiagnosticsComment on above:Performed By: #### 09921, 26115, 496, 1759, 16879, 927, 549, 50005 #### [facility] of [place] [address] Airset Molder: Jak Lanza MDHemoglobin (Bld) [Mass/Vol]14.4 g/dLNormal 13.2-17.1Quest DiagnosticsComment on above:Performed By: #### 91265, 50234, 496, 1759, 20054, 927, 549, 52599 #### [facility] of [place] [address] Airset Molder: Jak Lanza MDMCH (RBC) [Entitic mass]30.1 oqIscxju64.0-33.0 Quest DiagnosticsComment on above:Performed By: #### 80568, 99145, 496, 1759, 27313, 927, 549, 73865 #### [facility] of [place] [address] Airset Molder: Jak Lanza MDMCHC (RBC) [Mass/Vol]32.9 g/zQJdmola19.0-36.0 Quest DiagnosticsComment on above:Performed By: #### 90199, 28728, 496, 1759, 50697, 927, 549, 86843 #### [facility] of [address], [address] [place] [address] Airset Molder: Jak Lanza MDMCV (RBC) [Entitic vol]91.6 lWCurria93.0-100.0 Quest DiagnosticsComment on above:Performed By: #### 19627, 95012, 496, 1759, 48153, 927, 549, 26848 #### [facility] of [place] [address] Airset Molder: Jak Lanza MDPlatelet mean volume (Bld) [Entitic vol]9.4 fL Normal7.5-12.5Quest DiagnosticsComment on above:Performed By: #### 09974, 91580, 496, 1759, 60527, 927, 549, 34998 #### [facility] of [place] [address] [place] , [address] [place] [address] Airset Molder: Jak Lanza MDPlatelets (Bld) [#/Vol]179 10*3/uLNormal 140-400Quest DiagnosticsComment on above:Performed By: #### 46159, 10674, 496, 1759, 39839, 927, 549, 41885 #### [facility] of [place] [address] Airset Molder: Jak Lanza [facility]ISC[facility] HEALTH SYSTEMSBC (Bld) [#/Vol]4.78 10*6/uLNormal4.20-5.80 Quest DiagnosticsComment on above:Performed By: #### 22820, 11769, 496, 1759, 94875, 927, 549, 65188 #### [facility] of [address], [address] [place] [address] Airset Molder: Jak Lanza MDWBC (Bld) [#/Vol]7.6 10*3/uLNormal3.8-10.8 Quest DiagnosticsComment on above:Performed By: #### 25473, 70621, 496, 1759, 90849, 927, 549, 28227 #### [facility] [place] [address] [place] , [address] [place] [address] Airset Molder: Jak Lanza MDCOMPREHENSIVE METABOLIC PANELon 01-15-2021 Albumin [Mass/Vol]4.2 g/dLNormal3.6-5.1Quest DiagnosticsComment on above: Performed By: #### 56903, 72796, 496, 1759, 56723, 927, 549, 72941 #### [facility] of [place] [address], [address] [place] [address] Airset Molder: Jak Lanza MDAlbumin/Globulin [Mass ratio]1.2 {ratio}Normal 1.0-2.5Quest DiagnosticsComment on above:Performed By: #### 68111, 19193, 496, 1759, 65381, 927, 549, 61842 #### [facility] of [address], [address] [place] [address] Airset Molder: Jak Lanza MDALP [Catalytic activity/Vol]66 U/QNkefjx11-173 Quest DiagnosticsComment on above:Performed By: #### 91963, 17494, 496, 1759, 52837, 927, 549, 02844 #### [facility] of [address], [address] [place] [address] Airset Molder: Jak Lanza MDALT [Catalytic activity/Vol]13 U/LNormal9-46 Quest DiagnosticsComment on above:Performed By: #### 56507, 40498, 496, 1759, 25527, 927, 549, 44911 #### [facility] of [address], [address] [place] [address] Airset Molder: Jak Lanza MDAST [Catalytic activity/Vol]17 U/FPewnxh03-11 Quest DiagnosticsComment on above:Performed By: #### 06300, 69773, 496, 1759, 88607, 927, 549, 14751 #### [facility] of [address], [address] [place] [address] Airset Molder: Jak Lanza MDBilirubin [Mass/Vol]0.5 mg/dLNormal0.2-1.2 Quest DiagnosticsComment on above:Performed By: #### 05290, 17463, 496, 1759, 98193, 927, 549, 64661 #### [facility] of [address], [address] [place] [address] Airset Molder: Jak Lanza MDBUN/CREATININE RATIONOT APPLICABLENormal6-22 Quest DiagnosticsComment on above:Performed By: #### 88457, 89475, 496, 1759, 00326, 927, 549, 73047 #### [facility] [address], [address] [place] [address] Airset Molder: Jak Lanza MDCalcium [Mass/Vol]8.9 mg/dLNormal8.6-10.3Quest DiagnosticsComment on above:Performed By: #### 19226, 69216, 496, 1759, , 92, 549, 90160 #### [facility] [address], [address] [place] [address] Airset Molder: Jak Lanza MDChloride [Moles/Vol]104 mmol/EYcjkqq78-790 Quest DiagnosticsComment on above:Performed By: #### 66901, 94608, 496, 1759, , 927, 549, 03080 #### [facility] [place] [address] Airset Molder: Jak Lanza MDCO2 [Moles/Vol]24 mmol/DChueiq40-67Leqgw DiagnosticsComment on above:Performed By: #### 03904, 87169, 496, 1759, , 927, 549, 78643 #### [facility] [place] [address] Airset Molder: Jak Lanza MDCreatinine [Mass/Vol]1.06 mg/dLNormal0.70-1.25 Quest DiagnosticsComment on above:Result Comment: For patients >49 years of age, the reference limit for Creatinine is approximately 13% higher for people identified as -Ukrainian.Performed By: #### 13191, 54773, 496, 1759, 78229, 927, 549, 92696 #### [facility] [place] [address] Airset Molder: Jak Lanza MDeGFR NON-AFR. UAKEQTJE89 mL/min/1.06v4Jmvper> OR = 60Quest DiagnosticsComment on above:Performed By: #### 38529, 78654, 496, 1759, 34012, 927, 549, 40886 #### [facility] [place] [address] Airset Molder: Jak Lanza MDGFR/1.73 sq M.predicted among blacks MDRD (S/P/Bld) [Vol rate/Area]85 mL/min/{1.73_m2}Normal> OR = 60[facility] Comment on above:Performed By: #### 34671, 93188, 496, 1759, , 92, 549, 07775 #### [facility] [place] [address] Airset Molder: Jak Lanza MDGlobulin (S) [Mass/Vol]3.4 g/dLNormal1.9-3.7 Quest DiagnosticsComment on above:Performed By: #### 20743, 83051, 496, 1759, , 92, 549, 44122 #### [facility] [place] [address] Airset Molder: Jak Lanza MDGlucose [Mass/Vol]98 mg/wNXbaowl49-947Jogal DiagnosticsComment on above:Result Comment: Non-fasting reference intervalPerformed By: #### 80223, 18590, 496, 1759, , 927, 549, 35865 #### [facility] [place] [address] Airset Molder: Jak Lanza MDPotassium [Moles/Vol]4.4 mmol/LNormal3.5-5.3 Quest DiagnosticsComment on above:Performed By: #### 04505, 09652, 496, 1759, 00353, 927, 549, 87637 #### [facility] [place] [address] Airset Molder: Jak Lanza MDSodium [Moles/Vol]136 mmol/UBtctpc178-306Krury DiagnosticsComment on above:Performed By: #### 49068, 66074, 496, 1759, 29169, 927, 549, 91934 #### [facility] [address], [address] [place] [address] Airset Molder: Jak Lanza MDUrea nitrogen [Mass/Vol]11 mg/dLNormal7-25 Quest DiagnosticsComment on above:Performed By: #### 43864, 58053, 496, 1759, 07296, 927, 549, 26973 #### [facility] [address], [address] [place] [address] Airset Molder: Jak Lanza MDHEMOGLOBIN A1con 92-11-1110EWHWNSRPON A1c5.6 % of total HgbNormal<5.7Quest DiagnosticsComment on above:Result Comment: For the purpose of screening for the presence of diabetes: <5.7% Consistent with the absence of diabetes 5.7-6.4% Consistent with increased risk for diabetes (prediabetes) > or =6.5% Consistent with diabetes This assay result is consistent with a decreased risk of diabetes. Currently, no consensus exists regarding use of hemoglobin A1c for diagnosis of diabetes in children. According to [place] Diabetes Association (ADA) guidelines, hemoglobin A1c <7.0% represents optimal control in non- diabetic patients. Different metrics may apply to specific patient populations. Standards of Medical Care in Diabetes(ADA).Performed By: #### 6399, 34095, 7600, 809 #### [facility] [address], [address] [place] [address] Airset Molder: Jak Lanza MDIMMUNOFIXATION, SERUMon 12-75-1886FLP INTERPRETATIONNormalQuest DiagnosticsComment on above:Result Comment: A faint band in IgG [place] cannot be ruled out from the serum immunofixation electrophoresis pattern. Consider repeat of serum and/or urine immunofixation electrophoresis if clinically indicated.Performed By: #### 77555, 78431, 496, 1759, 24119, 927, 549, 07041 #### [facility] [address], [address] [place] [address] Airset Molder: Jak Lanza MDMETHYLMALONIC ACIDon 13-73-8449BEKJXCCHJNNDT WUTI398 nmol/TGmrf55-203Jixvi DiagnosticsComment on above:Result Comment: See Note 1 Note 1 This test was developed and its analytical performance characteristics have been determined by [employer]. It has not been cleared or approved by the FDA. This assay has been validated pursuant to the CLIA regulations and is used for clinical purposes.Performed By: #### 6399, 47909, 7600, 809 #### [facility] [address], [address] [place] [address] Airset Molder: Jak Lanza MDPROTEIN, TOTAL AND PROTEIN ELECTROPHORESIS W/ REFL IFEon 65-92-0203KQEULKSN PROTEIN BAND 1NormalNONE DETECTEDQuest Diagnostics Comment on above:Order Comment: FASTING:NO FASTING: NOResult Comment: See belowPerformed By: #### 77129, 18881, 496, 1759, 53769, 927, 549, 06967 #### [facility] [address], [address] [place] [address] Airset Molder: Jak Lanza MDAlbumin [Mass/Vol]4.1 g/dLNormal3.8-4.8Quest DiagnosticsComment on above:Order Comment: FASTING:NO FASTING: NOPerformed By: #### 03269, 34354, 496, 1759, 79735, 927, 549, 28466 #### [facility] [address], [address] [place] [address] Airset Molder: Jak Lanza MDALPHA 1 GLOBULIN0.3 g/dLNormal0.2-0.3Quest DiagnosticsComment on above:Order Comment: FASTING:NO FASTING: NOPerformed By: #### 03805, 74492, 496, 1759, 58895, 927, 549, 25423 #### [facility] [address], [address] [place] [address] Airset Molder: Jak Lanza MDALPHA 2 GLOBULIN0.8 g/dLNormal0.5-0.9Quest DiagnosticsComment on above:Order Comment: FASTING:NO FASTING: NOPerformed By: #### 62813, 28516, 496, 1759, 70182, 927, 549, 26988 #### [facility] [place] [address] Airset Molder: Jak Lanza MDBETA 1 GLOBULIN0.4 g/dLNormal0.4-0.6Quest DiagnosticsComment on above:Order Comment: FASTING:NO FASTING: NOPerformed By: #### 77419, 25605, 496, 1759, 82821, 927, 549, 89157 #### [facility] [place] [address] Airset Molder: Jak Lanza MDBETA 2 GLOBULIN0.5 g/dLNormal0.2-0.5Quest DiagnosticsComment on above:Order Comment: FASTING:NO FASTING: NOPerformed By: #### 49955, 80189, 496, 1759, 44983, 927, 549, 87408 #### [facility] [address], [address] [place] [address] Airset Molder: Jak Lanza MDGAMMA GLOBULIN1.5 g/dLNormal0.8-1.7Quest DiagnosticsComment on above:Order Comment: FASTING:NO FASTING: NOPerformed By: #### 65180, 56447, 496, 1759, 53757, 927, 549, 51708 #### [facility] [place] [address] Airset Molder: Jak Lanza MDINTERPRETATIONNormalQuest DiagnosticsComment on above:Order Comment: FASTING:NO FASTING: NOResult Comment: Evaluation reveals a faint restricted band (M-spike) migrating in the beta-2 globulin region. If not already requested, Immunofixation should be considered.Performed By: #### 34014, 85978, 496, 1759, 80276, 927, 549, 18387 #### [facility] [place] [address] Airset Molder: Jak LUISrotein [Mass/Vol]7.6 g/dLNormal6.1-8.1Quest DiagnosticsComment on above:Order Comment: FASTING:NO FASTING: NOPerformed By: #### 74033, 69903, 496, 1759, 11173, 927, 549, 13182 #### [facility] [address], [address] [place] [address] Airset Molder: Jak Lanza MDTSH W/REFLEX TO FT4on 62-54-9943TKO W/REFLEX TO FT42.39 mIU/LNormal0.40-4.50Quest DiagnosticsComment on above:Performed By: #### 45767, 99566, 496, 1759, 13024, 927, 549, 05484 #### [facility] [address], [address] [place] [address] Airset Molder: Jak Lanza MDVITAMIN B12on 64-84-0673Gulludlad (Vitamin B12) [Mass/Vol]223 pg/wYQnycoi394-8135Hylbn DiagnosticsComment on above:Result Comment: Please Note: Although the reference range for vitamin B12 is 200-1100 pg/mL, it has been reported that between 5 and 10% of patients with values between 200 and 400 pg/mL may experience neuropsychiatric and hematologic abnormalities due to occult B12 deficiency; less than 1% of patients with values above 400 pg/mL will have symptoms.Performed By: #### 90160, 61358, 496, 1759, 87607, 927, 549, 86033 #### [facility] [address], [address] [place] [address] Airset Molder: Jak Lanza MD.eGFRon 60-85-4178hBKK AA>60Normal>=60 [facility] HospitalComment on above:Result Comment: See comment. Performed By: #### .Automated Diff #### [address] [address]aZSF Non-AA>60Normal>=60[facility] HospitalComment on above:Result Comment: Stages of Chronic Kidney Disease GFR Stage 3a Mild to moderate loss of kidney function 59 to 45 Stage 3b Moderate to severe loss of kidney function 44 to 33 Stage 4 Severe loss of kidney function 29 to 15 Stage 5 Kidney failure Less than 15 GFR calculated using the CKD-EPI Creatinine Equation (2009): eGFR = 141 X min(SCr/?, 1)? X max(SCr /?, 1)-1.209 X 0.993Age X 1.018 [if female] X 1.159 [if Black] Abbreviations/Units: eGFR (estimated glomerular filtration rate) = mL/min/1.73 m2 SCr (standardized serum creatinine) = mg/dL ? = 0.7 (females) or 0.9 (males) ? = -0.329 (females) or -0.411 (males) min = indicates the minimum of SCr/? or 1 max = indicates the maximum of SCr/? or 1 age = yearsPerformed By: #### .Automated Diff #### [address] [address]Exqca Metabolic Profileon 49-46-5961Jhtse gap [Moles/Vol]12 mmol/LNormal7-17[facility] HospitalComment on above:Performed By: #### .Automated Diff #### [address] [address]Xunoyrw [Mass/Vol]8.4 mg/dLLow8.5-10.3BSouthwest General Health CenterComment on above:Performed By: #### .Automated Diff #### [address] [address]Qkywvubb [Moles/Vol]107 mmol/DDjtxpn19-279TpuzyjhhiOhio Valley HospitalComment on above:Performed By: #### .Automated Diff #### [address] [address]BO6 [Moles/Vol]21 mmol/HWyf57-40XaaesqsysOhio Valley Hospital Comment on above:Performed By: #### .Automated Diff #### [address] [address]Lxiijuryji [Mass/Vol]0.94 mg/dLNormal0.61-1.24[facility] HospitalComment on above:Performed By: #### .Automated Diff #### [address] [address]Dsxbmxe [Mass/Vol]158 mg/fFBwil20-43KpxnewdozOhio Valley HospitalComment on above:Performed By: #### .Automated Diff #### [address] [address]Nzqnhzqdz [Moles/Vol]4.4 mmol/LNormal3.4-4.8BSouthwest General Health CenterComment on above:Performed By: #### .Automated Diff #### [address] [address]Zmvqys [Moles/Vol]136 mmol/HIkkgjl051-713HtjbhdcjzOhio Valley HospitalComment on above:Performed By: #### .Automated Diff #### [address] [address]Rjup nitrogen [Mass/Vol]12 mg/dLNormal8-26[facility] HospitalComment on above:Performed By: #### .Automated Diff #### [address] [address]Hpjl nitrogen/Creatinine [Mass ratio]12.8 mg/ncUrjwog46.0-20.0 [facility] HospitalComment on above:Performed By: #### .Automated Diff #### [address] [address]IOG w/ Diffon 02-60-5988Vtwugniylki distribution width (RBC) [Ratio]13.1 %Urkits88.6-14.8BSouthwest General Health CenterComment on above: Performed By: #### CBC #### [address] [address]Cpgznmqylu (Bld) [Volume fraction]37.9 %Low41.0-53.0[facility] HospitalComment on above:Performed By: #### CBC #### [address] [address]Nooesppvkn (Bld) [Mass/Vol]13.2 g/dLLow13.5-17.5BSouthwest General Health CenterComment on above:Performed By: #### CBC #### [address] [address]PAM (RBC) [Entitic mass]31.8 qwPywjne01.0-35.0[facility] HospitalComment on above:Performed By: #### CBC #### [place] [address]MCHC34.8 %Rjexzi24.0-37.0[facility] HospitalComment on above:Performed By: #### CBC #### [address] [address]KGY (RBC) [Entitic vol]91.2 eMZjzxlc98.0-100.0[facility] HospitalComment on above:Performed By: #### CBC #### [place] [address]Platelet163 x10*3/caUCarqfa284-637RrwbcodkxOhio Valley HospitalComment on above:Performed By: #### CBC #### [address] [address]Omxkhxwh mean volume (Bld) [Entitic vol]7.7 fLNormal6.7-10.6 [facility] HospitalComment on above:Performed By: #### CBC #### [address] [address]BML0.15 x10*6/mcLLow4.30-5.80[facility] Comment on above:Performed By: #### CBC #### [address] [address]DCZ63.8 x10*3/mcLHigh4.5-11.0[facility] Comment on above:Performed By: #### CBC #### [place] [address]Diff Autoon 17-75-1655Lwlh Absolute0.0 x10*3/mcLNormal0.0-0.2 [facility] SystemComment on above:Performed By: #### .Automated Diff #### [address] [address]Nmeqnkkws/100 WBC (Bld)0.0 %Normal0.0-1.2BAultman Hospital SystemComment on above:Performed By: #### .Automated Diff #### [address] [address]Wiu Absolute0.0 x10*3/mcLNormal0.0-0.4BAultman Hospital SystemComment on above:Performed By: #### .Automated Diff #### [address] [address]Kovoxwranug/100 WBC (Bld)0.0 %Normal0.0-6.1BAultman Hospital SystemComment on above:Performed By: #### .Automated Diff #### [address] [address]Waxzw Absolute1.2 x10*3/mcLNormal1.0-4.8BAultman Hospital SystemComment on above:Performed By: #### .Automated Diff #### [address] [address]Qhegluiugrm/100 WBC (Bld)9.1 %Low27.2-40.8BAultman Hospital SystemComment on above:Performed By: #### .Automated Diff #### [address] [address]Cniw Absolute0.4 x10*3/mcLNormal0.3-1.1BAultman Hospital SystemComment on above:Performed By: #### .Automated Diff #### [address] [address]Iwmfdswpz/100 WBC (Bld)3.3 %Low4.7-13.9BAultman Hospital SystemComment on above:Performed By: #### .Automated Diff #### [address] [address]Lkvjbx Uuuidncz51.2 x10*3/mcLHigh1.8-7.7BSouthwest General Health CenterComment on above:Performed By: #### .Automated Diff #### [address] [address]Ssmbta Auto87.6 %High47.2-70.8BSouthwest General Health Center Comment on above:Performed By: #### .Automated Diff #### [address] [address]Desnytvol Clinical Summaryon 96-22-8659Fkjqzuddd Clinical Summary[address] [address] [address] [address] Clinical Summary Person Information Name: Elian Cavazos Age: 64 Years : 1955 Sex: Male PCP: Alek Shelton DO Marital Status: Phone: PCP: [phone] Race: White Ethnicity: Not or Language: Persian Visit Id: Visit Reason: Speciality: Acuity: Enc Type: Observation Med Service: Surgery Arrival: 09/09/2020 07:10:30 Discharge: Dispo Type: Address: [address] [place] [address] Diagnosis: Status post total left knee replacement Discharged To: Home Treatments: Devices/Equipment: Professional Skilled Services: Special Services and Community Resources: Mode of Discharge Transportation: Discharge Orders Activity Restrictions Activity as tolerated-follow precautions. Activity Restrictions Continue to use your walker, crutches or cane as instructed by your physical therapist. Your therapist will tell you when you can discontinue use of walking aids. For many patients walking aids are needed only for the first few days after surgery. Activity Restrictions Exercise twice a day using the exercises on the therapy instructions sheet. It is good to continue this exercise regimen indefinitely. Activity Restrictions Walking is the best form of exercise. Begin with 15 minutes 3-4 times per day. Increase your walking time as tolerated. Activity Restrictions Continue to wear the anti-embolic (SHIRA) stockings 22-24 hours per day for 4 weeks as tolerable. Activity Restrictions If the stockings are extremely uncomfortable and intolerable, you may discontinue them. You may use remedios bandage wrapped from foot to mid-thigh Activity Restrictions Sexual activity may resume when comfortable within range of motion precautions. Discharge Patient Education Review and attach [facility] Hip/Knee Inpatient Discharge Special Instructions Bruising may occur in the thigh for knee replacement patients. Do not be alarmed if this occurs. Discharge Special Instructions Common symptoms after total joint replacement surgery include: redness, bruising, drainage, or swelling at the incision site. If there symptoms progressively worsen anddo not subside after rest, elevating and icing, please contact your doctor. Discharge Special Instructions You may use your cooling device continuously with a cloth between the cuff and your skin. Alternatively, apply ice to operative area 20 minutes per hour while awake. Apply cloth between ice and skin for protection. Discharge Special Instructions Patient should attempt to control pain with Tylenol and Anti-Inflammatory (if prescribed) initially. If pain is not controlled then use narcotic pain medication. Discharge Special Instructions Maintain a reasonable weight to avoid stress on your hip or knee andother joints. Discharge Special Instructions Inform all doctors who are treating you, including your dentist thatyou have a total joint implant. Some long-term precautions may need to be taken. Discharge Special Instructions Avoid all dental procedures and cleanings for 90 days after your surgery. Discharge Special Instructions If your dentist feels manipulation of your gum/teeth may introduce bacteria into your blood, they will need to prescribe antibiotics. Discharge Special Instructions Watch for these warning sign/symptoms and call your doctor if any occurs: Trouble breathing or shortness of breath; Prolonged nausea or vomiting; Chills or fever above 101 degrees F; Pain getting worse or not being helped by pain medication. Discharge Wound Care Leave the Mepilex bandage in place for one week after your surgery, then remove. Then replace with extra dressing given at time of discharge and leave intact until follow up appointment. Follow up 09/10/20 7:47:00 EDT, 1 to 2 weeks, As scheduled Allergies No Known Allergies Functional Status: Sensory Deficits: None History of Falls: None Mobility Assistance Prior to Admission: ADLs: Independent Gait: Steady Ambulation Assist: Assistive Device: Special Orthopedic Devices: Current Level of Assistance for Self-Care/Mobility: Cognitive Status: Orientation: Orientation Assessment Oriented x 4 Level of Consciousness: Alert Characteristics of Speech: Clear Aspiration Risk: None Affect/Behavior: Appropriate, Calm, Cooperative Laboratory or Other Results This Visit (last charted value for your 09/09/2020 visit) Hematology 09/10/2020 5:55 AM WBC: 12.8 x10 RBC: 4.15 x10 Neutro Auto: 87.6 % -- Normal range between ( 47.2 and 70.8 ) Lymph Auto: 9.1 % -- Normal range between ( 27.2 and 40.8 ) [place] Auto: 3.3 % -- Normal range between ( 4.7 and 13.9 ) Eos Auto: 0.0 % -- Normal range between ( 0.0 and 6.1 ) Basophil Auto: 0.0 % -- Normal range between ( 0.0 and 1.2 ) Baso Absolute: 0.0 x10 MCV: 91.2 fL -- Normal (more content not included)...[facility] HospitalOrthopedic Progress Noteon 40-44-4030Xroiagtwaq Progress Note Orthopedic: Postoperative day #1 status post left total knee replacement Subjective: Patient states that they're doing quite well with no specific complaints at this time. Patient wishes at this time to be discharged to home. Objective: The patient's dressings is dry. Range of motion of the left knee is 2-100. There is no signs of drop foot. There is no sign of DVT or infection. Patient has good pedal pulse, and capillaryrefill is less than 2 seconds. Vital Signs (last 24 hrs) Last Charted Temp Oral 36.6 degC (SEPTEMBER 10 05:54) Heart Rate Peripheral L 54bpm (SEPTEMBER 10 05:54) Resp Rate 18 br/min (SEPTEMBER 09 13:24) SBP 130 mmHg (SEPTEMBER 10 05:54) DBP 76 mmHg (SEPTEMBER 10 05:54) SpO2 95 % (SEPTEMBER 10 05:54) Weight 122.9 kg (SEPTEMBER 10 05:00) Labs (Last four charted values) WBC H 12.8 (SEPTEMBER 10) Hgb L 13.2 (SEPTEMBER 10) Hct L 37.9 (SEPTEMBER 10) Plt 163 (SEPTEMBER 10) Na 136 (SEPTEMBER 10) K 4.4 (SEPTEMBER 10) CO2 L 21 (SEPTEMBER 10) Cl 107 (SEPTEMBER 10) Cr 0.94 (SEPTEMBER 10) BUN 12 (SEPTEMBER 10) Assessment: Status post left total knee replacement Plan: At this time we plan to discharge the patient home. The patient will be discharged to home with assistance from family and friends. All other questions have been answered to the patient's satisfaction. The patient will follow-up in 10-[address] Germain or myself. Electronically signed by Alex Hayes PA-C 09/10/20 07:42 EDTDunlap [facility] Hospital CoV2 Agon 30-67-4615[place] healthcare?[facility] HospitalComment on above:Performed By: #### .Automated Diff #### [address] [address]Okxig care resident?[facility] Comment on above:Performed By: #### .Automated Diff #### [address] [address]Ct ICU?[facility] HospitalComment on above:Performed By: #### .Automated Diff #### [address] [address]Wrrstdiwa status?Not NoCincinnati VA Medical CenterComment on above:Performed By: #### .Automated Diff #### [address] [address]PUQI-QfE-4 (COVID-19) RNA DIEGO+probe Ql (Unsp spec)Normal NegativeOhio Valley HospitalComment on above:Result Comment: * Negative (Non-Reactive) * Negative results from patients with symptom onset outside of one to six days should be treated as presumptive. A false-negative test result may occur if the level of viral antigen in a sample is below the detection limit of the test or if the sample was collected or transported improperly; therefore, a negative test result does not eliminate the possibility of SARS-CoV-2 infection. Negative results should not be used as the sole basis for treatment or patient management decisions, including infection control decisions. Negative results should be considered in the context of a patient?s recentexposures, history and the presence of clinical signs and symptoms consistent with COVID-19. Negative ADDITIONAL INFORMATION: Testing performed on the [employer] using the SARS-CoV-2 Antigen test. Results are for the identification of SARS-CoV-2 nucleocapsid antigen. The VITROS SARS-CoV-2 Antigen test can detect bothviable and non-viable SARS-CoV-2 material. The VITROS SARS-CoV-2 Antigen test performance depends on antigen load and may not correlate with other diagnostic methods performed on the same specimen. The performance of this test has not been evaluated for use in patients without signs and symptoms ofrespiratory infection. Test results should be considered in the context of all available clinical and diagnostic information, including patient history and other test results. In the [place], the VITROS SARS-CoV-2 Antigen test is only for use under the Food and Drug Administration?s EmergencyUse Authorization. HCP Fact Sheet: https://www.fda.gov/media/268053/download Patient Fact Sheet: https://www.fda.gov/media/377665/downloadPerformed By: #### .Automated Diff #### [address] [address]AXTJ-CyA-1 (COVID-19) RNA DIEGO+probe Ql (Unsp spec)UnknownNormal [facility] HospitalComment on above:Performed By: #### .Automated Diff #### [address] [address]Lcgpsrkjdng as defined by CDC?UnknownNormalOhio Valley HospitalComment on above:Performed By: #### .Automated Diff #### [address] [address].eGFRon 30-49-9878aHOF AA>60Normal>=60[facility] HospitalComment on above:Result Comment: See comment.Performed By: #### EGFR #### [address] [address]tEVQ Non-AA>60Normal>=60[facility] HospitalComment on above:Result Comment: Stages of Chronic Kidney Disease GFR Stage 3a Mild to moderate loss of kidney function 59 to 45 Stage 3b Moderate to severe loss of kidney function 44 to 33 Stage 4 Severe loss of kidney function 29 to 15 Stage 5 Kidney failure Less than 15 GFR calculated using the CKD-EPI Creatinine Equation (2009): eGFR = 141 X min(SCr/?, 1)? X max(SCr /?, 1)-1.209 X 0.993Age X 1.018 [if female] X 1.159 [if Black] Abbreviations/Units: eGFR (estimated glomerular filtration rate) = mL/min/1.73 m2 SCr (standardized serum creatinine) = mg/dL ? = 0.7 (females) or 0.9 (males) ? = -0.329 (females) or -0.411 (males) min = indicates the minimum of SCr/? or 1 max = indicates the maximum of SCr/? or 1 age = yearsPerformed By: #### EGFR #### [address] [address]KPS w/ Diffon 57-12-6672Ebhhsrfekgw distribution width (RBC) [Ratio]13.6 %Qihfkc65.6-14.8BSouthwest General Health CenterComment on above: Performed By: #### CBC #### [address] [address]Pkwgstkxwf (Bld) [Volume fraction]43.3 %Aszwfy53.0-53.0 [facility] HospitalComment on above:Performed By: #### CBC #### [address] [address]Zwvlpxuprv (Bld) [Mass/Vol]14.8 g/pLMpzxku59.5-17.5BSouthwest General Health CenterComment on above:Performed By: #### CBC #### [address] [address]GNX (RBC) [Entitic mass]31.9 vsDxlhua70.0-35.0[facility] HospitalComment on above:Performed By: #### CBC #### [address] [address]DJKJ02.2 %Pryexj23.0-37.0[facility] HospitalComment on above:Performed By: #### CBC #### [address] [address]XJP (RBC) [Entitic vol]93.4 bOOjsccn03.0-100.0[facility] HospitalComment on above:Performed By: #### CBC #### [address] [address]Ovkipfcs937 x10*3/osTJdfhfq802-390JidpmlihdOhio Valley HospitalComment on above:Performed By: #### CBC #### [address] [address]Zfhueeut mean volume (Bld) [Entitic vol]7.6 fLNormal6.7-10.6 [facility] HospitalComment on above:Performed By: #### CBC #### [address] [address]UZX5.63 x10*6/mcLNormal4.30-5.80[facility] Comment on above:Performed By: #### CBC #### [address] [address]CLY5.8 x10*3/mcLNormal4.5-11.0[facility] Comment on above:Performed By: #### CBC #### [address] [address]BMBiy 57-63-4075Srnrwsr [Mass/Vol]4.1 g/dLNormal3.2-4.9 [facility] HospitalComment on above:Performed By: #### .Automated Diff #### [address] [address]Ykldzri/Globulin [Mass ratio]1.1 {ratio}Normal1.1-2.2BSouthwest General Health CenterComment on above:Performed By: #### .Automated Diff #### [address] [address]Wse Phos53 IU/NZwuebk64-26EjouerathOhio Valley HospitalComment on above:Performed By: #### .Automated Diff #### [address] [address]EAX [Catalytic activity/Vol]23 U/YYiuiwq53-31OmbkvvhqnOhio Valley HospitalComment on above:Performed By: #### .Automated Diff #### [address] [address]Wcxzj gap [Moles/Vol]13 mmol/LNormal7-17[facility] SystemComment on above:Performed By: #### .Automated Diff #### [address] [address]RKQ [Catalytic activity/Vol]24 U/GYtvsrr74-53DbrvcyrbwOhio Valley HospitalComment on above:Performed By: #### .Automated Diff #### [address] [address]Ytqm Total0.3 mg/dLNormal0.3-1.2BSouthwest General Health Center Comment on above:Performed By: #### .Automated Diff #### [address] [address]Dxnthbh [Mass/Vol]9.2 mg/dLNormal8.5-10.3BSouthwest General Health CenterComment on above:Performed By: #### .Automated Diff #### [address] [address]Ofcnugiu [Moles/Vol]106 mmol/BIsyzmk11-474MezbzhtglOhio Valley HospitalComment on above:Performed By: #### .Automated Diff #### [address] [address]KF1 [Moles/Vol]25 mmol/VAskitb66-85TyggdtygzOhio Valley HospitalComment on above:Performed By: #### .Automated Diff #### [address] [address]Unqthjvkcp [Mass/Vol]1.13 mg/dLNormal0.61-1.24[facility] HospitalComment on above:Performed By: #### .Automated Diff #### [address] [address]Jqnkbyk [Mass/Vol]97 mg/rASgxnsl02-42MvdaqfnclOhio Valley HospitalComment on above:Performed By: #### .Automated Diff #### [address] [address]Nspcdxnjb [Moles/Vol]4.3 mmol/LNormal3.4-4.8BSouthwest General Health CenterComment on above:Performed By: #### .Automated Diff #### [address] [address]Obmtrly [Mass/Vol]7.7 g/dLNormal6.5-8.1BSouthwest General Health CenterComment on above:Performed By: #### .Automated Diff #### [address] [address]Lhsqmw [Moles/Vol]140 mmol/QJvscqx200-768SfgcrsdrvOhio Valley HospitalComment on above:Performed By: #### .Automated Diff #### [address] [address]Gwpp nitrogen [Mass/Vol]22 mg/dLNormal8-26[facility] HospitalComment on above:Performed By: #### .Automated Diff #### [address] [address]Eqkd nitrogen/Creatinine [Mass ratio]19.5 mg/cxPhctrh85.0-20.0 [facility] HospitalComment on above:Performed By: #### .Automated Diff #### [address] [address]Slvo Autoon 98-85-9740Gefh Absolute0.1 x10*3/mcLNormal0.0-0.2 [facility] HospitalComment on above:Performed By: #### .Automated Diff #### [address] [address]Fzgjtfuis/100 WBC (Bld)0.7 %Normal0.0-1.2BSouthwest General Health CenterComment on above:Performed By: #### .Automated Diff #### [address] [address]Hjt Absolute0.3 x10*3/mcLNormal0.0-0.4BSouthwest General Health CenterComment on above:Performed By: #### .Automated Diff #### [address] [address]Wvhnrpwhbba/100 WBC (Bld)3.8 %Normal0.0-6.1BAultman Hospital SystemComment on above:Performed By: #### .Automated Diff #### [address] [address]Wcnrs Absolute3.3 x10*3/mcLNormal1.0-4.8BSouthwest General Health CenterComment on above:Performed By: #### .Automated Diff #### [address] [address]Hjceqwysqgp/100 WBC (Bld)42.6 %High27.2-40.8BSouthwest General Health CenterComment on above:Performed By: #### .Automated Diff #### [address] [address]Xzvr Absolute0.9 x10*3/mcLNormal0.3-1.1BSouthwest General Health CenterComment on above:Performed By: #### .Automated Diff #### [address] [address]Zhflaqpch/100 WBC (Bld)10.9 %Normal4.7-13.9BSouthwest General Health CenterComment on above:Performed By: #### .Automated Diff #### [address] [address]Vfhrwd Absolute3.3 x10*3/mcLNormal1.8-7.7BSouthwest General Health CenterComment on above:Performed By: #### .Automated Diff #### [address] [address]Ixdbtv Auto42.0 %Low47.2-70.8BSouthwest General Health Center Comment on above:Performed By: #### .Automated Diff #### [facility] [address] [place] [address] Vital Signs Date TimeVital SignValuePerforming CclymnhcoHnktwnrc18-51-2922 12:14-0400Body laluhv971.9 cmHernando Guerrero MD Work Phone: [facility]App[facility] Fbbmdq16-47-9435 12:14-0400Body mass index (BMI) [Ratio]38.65 kg/e5XuxhbwvHernando Guerrero MD Work Phone: [facility] Dqkvfm15-24-8768 12:14-0400Body .28 kgHernando Guerrero MD Work Phone: [facility] Nolmko10-64-7990 10:38-0400Body mass index (BMI) [Ratio]38.65 kg/m2Kate Powers DO Work Phone: [phone])[facility] Ceuofw75-75-9394 10:38-0400Body ondtdg320.28 kgAniae Powers DO Work Phone: [phone] Iifyvu22-45-8727 10:38-0400Diastolic blood hcuuygho09 mm[Hg]Katheryn Powers DO Work Phone: [phone] Jazdps18-41-1698 10:38-0400Heart rate 55 /minKate Powers DO Work Phone: [phone])[facility] Vcjqwn22-86-2158 10:38-0400Systolic blood xqvoftxd080 mm[Hg]Katheryn Powers DO Work Phone: [phone])[facility] Ittlxt47-39-7425 14:54-0400Body mass index (BMI) [Ratio]38.65 kg/m2Kate Powers DO Work Phone: [phone])[facility] Jzfjwf96-28-6527 14:54-0400Body wvwydl610.28 kgAniae Powers DO Work Phone: [phone])[facility] Kohycn88-49-0590 14:54-0400Diastolic blood gdsyjknt01 mm[Hg]Katheryn Powers DO Work Phone: [phone])[facility] Mtfhnl16-61-0557 14:54-0400Heart rate 60 /minKatheryn Powers DO Work Phone: [phone])[facility] [place] Iqdyrf89-80-0983 14:54-0400Systolic blood mm[Hg]Katheryn Powers DO Work Phone: [phone] [place] Dnqbar71-36-6802 08:38-0400Body sgfoaw430.9 Margarette Clemons MD Work Phone: [facility] [place] Vohwoa30-16-8289 08:38-0400Body mass index (BMI) [Ratio]38.38 kg/p0KsncxeCurry Clemons MD Work Phone: [facility] Hxdghs80-56-7734 08:38-0400Body iaotba806.37 kgCurry Clemons MD Work Phone: [facility] [place] Cghrsi53-92-8783 08:38-0400Diastolic blood mm[Hg]Curry Clemons MD Work Phone: [facility] [place] Cjgyjn23-62-5534 08:38-0400Heart rate 58 /minCurry Clemons MD Work Phone: [facility] Loyupc89-58-1038 08:38-2226QtY3% (BldA) [Mass fraction]99 %Curry Clemons MD Work Phone: [facility] [place] Gyhkex64-68-2676 08:38-0400Systolic blood benmclgj333 mm[Hg]Curry Clemons MD Work Phone: [facility] [place] Xmdhmg31-93-6727 13:55-0400Body bovtyp197.9 cmAlek Violanoah DO Work Phone: [facility] Xhhxlz23-57-1272 13:55-0400Body mass index (BMI) [Ratio]38.41 kg/m2Alek Shelton DO Work Phone: [facility] Steddd31-46-9157 13:55-0400Body hfqthcizxwc54.7 [degF]Alek Shelton DO Work Phone: [facility]05-29-2025 13:55-0400Body mkihzu145.46 kgAlek Shelton DO Work Phone: [facility]05-29-2025 13:55-0400Diastolic blood wgnevajz42 mm[Hg]Alek Shelton DO Work Phone: [facility] [place] Zqanel39-00-4863 13:55-0400Heart rate 42 /minJotamra Shelton DO Work Phone: [facility]05-29-2025 13:55-9454UtF4% (BldA) [Mass fraction]96 %Alek Shelton DO Work Phone: [facility]05-29-2025 13:55-0400Systolic blood wlvawzyo848 mm[Hg]Alek Shelton DO Work Phone: [facility] [place] Wbzadj99-72-7837 13:46-0400Diastolic blood ydwgnaxs24 mm[Hg]Alek Shelton DO Work Phone: [facility] [place] Jantiy26-11-3101 13:46-0400Systolic blood lrfwhiib225 mm[Hg]Alek Shelton DO Work Phone: [facility]04-01-2025 13:13-0400Body rvfego161.4 cmJotamra Shelton DO Work Phone: [facility] [place] Xzbqbt69-26-6108 13:13-0400Body mass index (BMI) [Ratio]37.64 kg/m2Jotamra Shelton DO Work Phone: [facility] [place] Pffnxi47-97-2747 13:13-0400Body ostgdetigbd59.9 [degF]Alek Shelton DO Work Phone: [facility]04-01-2025 13:13-0400Body coyrrm957.37 kgJotamra Shelton DO Work Phone: [facility] [place] Ureddy81-37-4531 13:13-0400Heart rate 70 /minLyubovhn Cat DO Work Phone: [facility] Ttkzjf50-53-4775 13:13-0400 Respiratory rate18 /minAlek Shelton DO Work Phone: [facility] [place] Awcnyn86-20-8913 13:13-9936YdH4% (BldA) [Mass fraction]95 %Alek Shelton DO Work Phone: [facility] [place] Kviodz37-86-1459 09:45-0500Body uxxrvu633.4 Margarette Clemons MD Work Phone: [phone] [place], [place] [address] Ltpahe88-94-4376 09:45-0500Body mass index (BMI) [Ratio]36.29 kg/j0XibggkCurry Clemons MD Work Phone: [phone] [address] StreetApp[address] Bisakn93-90-3203 09:45-0500Body naghue244.74 kgCurry Clemons MD Work Phone: [phone] [place] [address] [place] Bufmuw42-63-5326 09:45-0500Diastolic blood mm[Hg]Curry Clemons MD Work Phone: [phone] [address] StreetApp[address] Mpaskw56-04-1800 09:45-0500Heart rate 44 /minCurry Clemons MD Work Phone: [phone] [address] StreetApp[address] Wtuwrh18-12-3934 09:45-2142ElY6% (BldA) [Mass fraction]98 %Curry Clemosn MD Work Phone: [phone])79345 [address] StreetApp[address] Idulxz90-59-1342 09:45-0500Systolic blood tuohhmgj885 mm[Hg]Curry Clemons MD Work Phone: [phone] [address] StreetMedaPhor Ehweyg80-85-8970 08:45-0500Body lbceyd225.4 Emerita Lucio MD Work Phone: [phone] [place], [place] [address] Euiwvt13-32-7969 08:45-0500Body mass index (BMI) [Ratio]37.21 kg/r9DpeicYani Lucio MD Work Phone: [phone] [place], [place] [address] Lmosvx83-28-9382 08:45-0500Body asmdtf978.91 kgYani Lucio MD Work Phone: [facility] Ztanur33-24-8265 08:45-0500Diastolic blood ueamtxjy73 mm[Hg]Yani Lucio MD Work Phone: [facility] [place] Irbfkj56-64-8330 08:45-0500Heart rate 50 /minYani Lucio MD Work Phone: [facility] [place] Uvgagx25-29-8435 08:45-1316PjW4% (BldA) [Mass fraction]98 %Yani Lucio MD Work Phone: [facility] Lwxfll78-11-0633 08:45-0500Systolic blood vtvuiycy915 mm[Hg]Yani Lucio MD Work Phone: [facility] [place] Iifgzr11-49-9877 08:27-0500Body .4 cmJotamar Shelton DO Work Phone: [facility] Edmjkc06-21-0498 08:27-0500Body mass index (BMI) [Ratio]35.71 kg/m2Lyubovtamra Shelton DO Work Phone: [facility] Oxbldn41-50-6856 08:27-0500Body eljntzaxkar41.6 [degF]Alek Shelton DO Work Phone: [facility] Mwwtmm46-36-9327 08:27-0500Body avsacg631.79 kgLyubovtamra Shelton DO Work Phone: [facility] Fxxwoh77-00-0790 08:27-0500Diastolic blood mm[Hg]Alek Shelton DO Work Phone: [facility] Oqlxww54-79-6000 08:27-0500Heart rate 71 /minAlek Cat DO Work Phone: [facility] Scqwur29-93-8845 08:27-8968LhM8% (BldA) [Mass fraction]96 %Alek Shelton DO Work Phone: [facility] [place] Tyvfyd64-72-8135 08:27-0500Systolic blood oijtneto715 mm[Hg]Alek Shelton DO Work Phone: [facility] Encounters Encounter DateEncounter TypeCare ProviderFacilityStart: 02-06-2025 End: 21-02-6702Sasocrfip encounterMoenoch Guerrero MD Work Phone: [facility] - ENTComment on above:Sleep Lab (PSG)Start: 02-04-2025 End: 17-75-2833Gquzmn outpatient new 30 minutesMoenoch Guerrero MD Work Phone: [facility] - ENTComment on above: Obstructive sleep apnea syndrome (Primary Dx); Intolerance of continuous positive airway pressure (CPAP) ventilation; Snoring; Chronic fatigue; BMI 38.0-38.9,adult; Obesity (BMI 30-39.9); Drainage from nose; Globus sensation; Laryngopharyngeal reflux (LPR); Nasal congestionStart: 02-04-2025 End: 02-89-3708nfxjojmkfbKZYQYAF RAED ISSSt. Elizabeth Hospitaltart: 01-31-2025 End: 55-73-7262Oxipazdbm encounterNo Pcp No PcpYampa Valley Medical Center - ENT Start: 01-24-2025 End: 78-79-0704Qkjaoekgu encounterJaclin Derrek CMAProMedica Physicians Jobst VascularStart: 01-15-2025 End: 71-89-4566Qowowhw encounter procedurePrince Velazquez MD-Lab [address] Work Phone: Start: 01-15-2025 End: 93-10-3409sgpwwykupsNijt Yunoah DO Work Phone: [facility] Work Phone: Start: 01-14-2025 End: 09-82-8807Gmumaq outpatient visit 15 minutesKatheryn Powers DO Work Phone: [phone] Vascular [place]ontComment on above: Chronic venous insufficiency of lower extremity (Primary Dx); LymphedemaStart: 01-14-2025 End: 07-06-5777akytnwjvmfZQPQBed[facility] Ambulatory PPGStart: 12-06-2024 End: 71-39-5053msiyimtqiuRVVWMyMichigan Medical Center Gladwintart: 11-28-2024 End: 22-56-4324Ujsrjf-up encounterAlek Jose Antonio Shelton DO Work Phone: [facility] Physicians [facility] VascularComment on above: EMG With NCVStart: 44-28-7106kwrqvkdfjpFXACCorewell Health [facility] Start: 11-26-2024 End: 96-77-5013Rgftgv outpatient new 45 minutesOhiohealth [facility] Dominic Hornell DO Work Phone: [facility] Vascular [place]ontComment on above:Mixed hyperlipidemia (Primary Dx); Chronic venous insufficiency of lower extremity; Essential hypertension; 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[facility]-HCC); Bilateral leg edema; Bilateral carotid artery stenosis; Claudication; LINDA (obstructive sleep apnea)Start: 11-26-2024 End: 29-01-6357hdgvvhviilEXDVBedford Regional Medical Center Ambulatory PPGStart: 11-15-2024 End: 55-15-7995Rfskoj-up encounterAlek Brady Cat DO Work Phone: [facility] Physicians Internal Medicine - Family MedicineComment on above:Nerve Conduction Study (NCV)Start: 11-13-2024 End: 19-37-9095udfzxrphkiChqe Mariealexandria DO Work Phone: [facility] Work Phone: Start: 11-13-2024 End: 95-13-6321Dvvzhdk encounter procedureShelby Waldron DO-[facility] Neurology [employer] Work Phone: Start: 10-24-2024 End: 95-20-0766Uahkhy outpatient visit 25 minutesCurry Clemons MD Work Phone: [facility] Physicians CardiologyComment on above:PVC (premature ventricular contraction) (Primary Dx)Start: 10-24-2024 End: 78-54-9131fuyomrxskdJUWKRDSelect Medical Cleveland Clinic Rehabilitation Hospital, Beachwoodtart: 10-09-2024 End: 26-92-9155Pqbjblj encounter procedureMazack Velazquez MD-Lab [address] Work Phone: Start: 10-09-2024 End: 93-29-4508qlbtfneszhJhsmdfe MorrowFacility:[facility] Hospitaltart: 10-08-2024 End: 12-99-6220baaxkdmqvzZILBAlameda Hospitaltart: 09-13-2024 End: 29-57-9580Uihagm outpatient visit 25 minutesLyubovtamra Salazars DO Work Phone: [facility] - Family MedicineComment on above:Peripheral polyneuropathy (Primary Dx); Chronic venous insufficiency of lower extremity; 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[facility]-HCC)Start: 09-13-2024 End: 87-92-3323mtxpyiyexfDWVECancer [facility] PPGStart: 07-17-2024 End: 31-12-6595qgesxdrvzyLZTPUpper Valley Medical Centertart: 07-17-2024 End: 71-23-1991Jknwhg outpatient visit 25 minutesLyubovtamra Salazars DO Work Phone: [facility] - Family MedicineComment on above:Mixed hyperlipidemia (Primary Dx); 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[facility]-HCC); Vitamin B12 deficiency neuropathy; Stable angina; Encounter for screening for malignant neoplasm of prostateStart: 07-17-2024 End: 04-67-3201tpzipfikoxWXBKAlbany Memorial Hospital Ambulatory PPGStart: 07-03-2024 End: 53-29-9390Jwlxbpj encounter procedureJohn Yuhas DO Work Phone: [facility]-Lab [address] Work Phone: Start: 07-03-2024 End: 13-57-6509goqluarivlMpzf Yuhas DO Work Phone: [facility] Work Phone: Start: 06-08-2024 End: 54-81-1461NhmyryMpqaeuOtiila [facility] Physicians CardiologyComment on above:Med RefillStart: 05-03-2024 End: 29-14-0905Uixntsspb encounterFrancesca Mora CMARockingham Memorial HospitalMedica Physicians CardiologyStart: 05-03-2024 End: 74-07-7700Dxydco outpatient new 45 Silvia Lucio MD Work Phone: [facility] Physicians CardiologyComment on above:PVC (premature ventricular contraction) (Primary Dx); Abnormal Holter examStart: 05-03-2024 End: 32-96-7471askwizyrshKXYEBX GOYALProMedica Toledo HospitalStart: 04-30-2024 End: 59-60-1399Oemgefnyn encounterViktor [facility] Physicians CardiologyComment on above:EP referralStart: 04-24-2024 End: 30-14-9892tjwrxsfdfsNBSAR L HALEIGHENEDETTIRockingham Memorial HospitalMediWashington County Memorial Hospital HospitalStart: 04-24-2024 End: 88-82-6017jfxjdnuywwMRSHJ L SANDRAProMedica Wakefield HospitalStart: 04-24-2024 End: 10-39-0132tthgckmynvBMPIS L HALEIGHENEDETTIRockingham Memorial HospitalMediWashington County Memorial Hospital HospitalStart: 04-16-2024 End: 47-69-0898Zqxdfx outpatient visit 25 minutesYani Lucio MD Work Phone: [facility] Physicians CardiologyComment on above: Bradycardia (Primary Dx); PVC (premature ventricular contraction); Essential hypertension; Mixed hyperlipidemia; Arteriosclerosis of arterial coronary artery bypass graft; Stable angina ([facility]-HCC); Coronary arteriosclerosisStart: 04-16-2024 End: 12-83-6083rubjkiuyxrKODAJ L HALEIGHENEDETTIProMedica Wakefield HospitalStart: 04-13-2024 End: 95-71-3912Wfhkrldqf encounterJannet Nichole CMARockingham Memorial HospitalMedica Physicians Cardiology Start: 03-27-2024 End: 12-41-3029hlipjffebwZrwr [facility] Centerity:[facility] Start: 03-24-2024 End: 30-11-4958TspbddQzzypzcx Bialecki BIOLOGICAL SCIENCES INSTRUCTOR-SPEECH AND LANGUAGE ASSISTANT Work Phone: [facility] CardiologyComment on above:Med RefillStart: 01-11-2024 End: 75-49-9469UsomkiYvyrc Malas DO Work Phone: [facility] CardiologyComment on above:Med RefillStart: 12-30-2023 End: 85-51-5614Kgnnwprcn encounterRupa [facility] Card[facility] Start: 12-06-2023 End: 57-12-5230wbsvbvmvqdPE Alek Shelton Work Phone: [facility] Work Phone: Start: 12-06-2023 End: 76-94-4292Fngcwth encounter procedureDO Alek Shelton Work Phone: [facility]-Lab [address] Work Phone: Start: 08-16-2023 End: 10-73-6413cbiltpsxopOE John Yuhas Work Phone: [facility] Work Phone: Start: 08-16-2023 End: 17-33-9359Oxmqodj encounter procedureDO Alek Shelton Work Phone: [facility]-Lab [address] Work Phone: Start: 06-14-2023 End: 28-60-0342Lqkqpa outpatient visit 25 minutesJotamra Shelton DO Work Phone: [facility] - Family MedicineComment on above:Vitamin B12 deficiency neuropathy (CMS-HCC); Atherosclerotic heart disease of [place] coronary artery with other forms of angina pectoris (CMS-HCC); 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[facility]-HCC); Seasonal allergic rhinitis, unspecified triggerStart: 01-04-2023 End: 79-55-4167cvyljnsytzRF John Yuhas Work Phone: [facility] Work Phone: Start: 01-04-2023 End: 21-10-0290Vmngcxa encounter procedureDO Gaston Violanoah Work Phone: [facility]-[address] Work Phone: Start: 09-14-2022 End: 10-59-0512rtklhpogozWV Alek Shelton Work Phone: [facility] Work Phone: Start: 09-14-2022 End: 95-60-9229Bghagbk encounter procedureDO Alek Violanoah Work Phone: [facility] [address] Work Phone: Start: 08-30-2022 End: 18-45-1093whsdojqartLT ALEK YUHASFacility:E7Ttipl: 08-26-2022 End: 36-15-8784hapviyvbrsJK MIREYA CHRISTIANSONFacility:U1Glein: 08-12-2022 End: 90-00-4568reibtehjitEI ALEK YUHASFacility:I1Xzsdf: 08-05-2022 End: 63-38-5246nayitudezzZJ ALEK SALAZARSFacility:J9Rlndx: 07-20-2022 End: 16-69-0101cfgsrkjdvfIV ALEK SALAZARSFacility:L1Bnjez: 07-13-2022 End: 82-96-4254biejdoinzkVN ALEK SALAZARSFacility:V4Phitf: 06-29-2022 End: 28-18-3768setykdajuqOD MIREYA CHRISTIANSONFacility:J7Orpsf: 05-15-2022 End: 42-20-9032gfrvlqjanwCI JUMA CRUMP .Facility:U2Szlrk: 02-18-2022 End: 70-37-3417xeybxyxzgaYP DOCTOR MISCFacility:W3Aiytg: 02-02-2022 End: 32-99-2500uxysarvocaPY Alek Shelton Work Phone: [facility] Work Phone: Start: 02-02-2022 End: 81-24-0140Gawthkz encounter procedureDO Alek Shelton Work Phone: [facility] [address]: 10-13-2021 End: 34-70-3962Vqicpff encounter procedureDO Alek Shelton Work Phone: [facility] [address]Start: 01-19-2021 End: 64-39-7476kjyheigkesKM MADHURI A MCMATHFacility:[facility] Start: 01-18-2021 End: 22-69-7794uqpgqgejtcXB MADHURI A MCMATHFacility:[facility] Start: 01-09-2021 End: 64-66-5515srlossflerUF MADHURI A MCMATHFacility:[facility] Start: 09-09-2020 End: 09-21-4761bwcyvjfmqxVX MADHURI A MCMATHFacility:[facility] Start: 09-07-2020 End: 70-29-0629hatiddryylPS [facility] Start: 09-02-2020 End: 59-80-6788cbuyddhobmSC [facility]URI A [facility] Start: 08-18-2020 End: 85-52-1199zhvkcfbpswEB MADHURI A [facility] Procedures DateProcedureProcedure DetailPerforming ClinicianStart: 85-94-7211Hbygwn-up visitFollow-Alfa Alfaro GATESStart: 09-06-6490Lrszp depression screening assessment Alek Shelton DO Work Phone: Start: 63-37-1662Drokn depression screening assessment Alek Shelton DO Work Phone: Start: 11-94-5520Kap routine ecg w/least 12 lds w/i&r Curry Clemons MD Work Phone: Start: 36-24-0413Ttsmis-up visitFollow-Griselda CLEMONS Start: 09-55-8715Ecc routine ecg w/least 12 lds w/i&rLcarrie Lucio MD Work Phone: Start: 61-44-7688Dqhlvy-up visitFollow-upLCARRIE LUCIOStart: 28-14-4524Vrgtq depression screening assessmentAlek Shelton DO Work Phone: Plan of Treatment DateCare ActivityDetailAuthorStart: 25-03-8587QScC,Tdap and Td Vaccines (3 - Td or Tdap)DTaP,Tdap and Td Vaccines (3 - Td or Tdap)[facility] SystemStart: 50-53-5579Nxmuv BMI ScreeningAdult BMI ScreeningProCleveland Clinic Hillcrest Hospitalca Health SystemStart: 02-03-4185Rqbkczh ScreeningTobacco ScreeningThe [facility] Hospital at Southwoodsca Health SystemStart: 63-45-0097Wgwredk ScreeningTobacco ScreeningThe Surgical Hospital at Southwoodsca Health SystemStart: 17-96-9310Bipci BMI ScreeningAdult BMI ScreeningProMedica Health SystemStart: 80-10-3423Epgpxmm ScreeningTobacco ScreeningRockingham Memorial HospitalMedica Health SystemStart: 91-16-3973Mqtue BMI ScreeningAdult BMI ScreeningProMedica Health SystemStart: 06-47-5204Zujztzr ScreeningTobacco ScreeningProMedica Health SystemStart: 14-71-6956Gmldw BMI ScreeningAdult BMI ScreeningProMedica Health SystemStart: 84-60-4416Thrynuk ScreeningTobacco ScreeningRockingham Memorial HospitalMedica Health SystemStart: 63-15-9659Gofjp BMI ScreeningAdult BMI ScreeningProMedica Health SystemStart: 31-34-6860Ugxoxyotcc ScreeningDepression ScreeningThe [facility] Hospital at Southwoodsca Health SystemStart: 30-08-1466Tqmi Risk ScreeningFall Risk ScreeningRockingham Memorial HospitalMedica Health SystemStart: 51-93-0134Uqqoynt ScreeningTobacco ScreeningRockingham Memorial HospitalMedica Health SystemStart: 58-26-4702Rmclw BMI ScreeningAdult BMI ScreeningThe [facility] Hospital at Southwoodsca Health SystemStart: 09-26-4649Fdpoosfueq ScreeningDepression ScreeningThe Surgical Hospital at Southwoodsca Health SystemStart: 68-99-1479Eszbvfh ScreeningTobacco ScreeningHolzer Health System SystemStart: 13-12-8800Qpzepp Use: CardiovascularStatin Use: CardiovascularAshtabula General Hospital Health SystemStart: 31-93-0667Umwnj BMI ScreeningAdult BMI ScreeningHolzer Health System SystemStart: 64-04-1164Cpawvov ScreeningTobacco ScreeningHolzer Health System System Start: 61-22-8385Pxrmk BMI ScreeningAdult BMI ScreeningHolzer Health System System Start: 86-75-2570Margzqh ScreeningTobacco ScreeningHolzer Health System SystemStart: 01-67-7884Akwbs BMI ScreeningAdult BMI ScreeningHolzer Health System SystemStart: 28-55-9542Wgqllkd ScreeningTobacco ScreeningHolzer Health System SystemStart: 04-01-2025 End: 97-28-5667Kskoife encounter wjdtmaadg85/15/2025 10:30 AM EST Office Visit [facility] [address] [place] [address] Katheryn Powers DO [address] [place] [address] [facility] Start: 03-20-2025 End: 46-66-5559Cerkbuics to same day surgery wobfwe6503/20/2025 12:30 PM EST - 03/20/2025 2:30 PM EST Surgery [facility] [address] [place] [address] Katheryn Powers DO [address] [place] [address] LIGATION VEIN LOWER EXTREMITY OPEN GROIN VARICOSITIES (DIRECTLY OFF THE FEMORAL VEIN WITH NO STRAIGHT SEGMENT)[facility] -SurgeryComment on above:LIGATION VEIN LOWER EXTREMITY OPEN GROIN VARICOSITIES (DIRECTLY OFF THE FEMORAL VEIN WITH NO STRAIGHT SEGMENT)Start: 03-20-2025 End: 55-88-4167DQHTDTOU VEIN LOWER EXTREMITYLIGATION VEIN LOWER EXTREMITY Chronic venous insufficiency of lower extremity 03/20/2025 12:30 PM ESTColumbus Regional Healthcare Systemtart: 03-20-2025 End: 22-40-1983DYYGCUDNNQADRLWBVYMHCF Chronic venous insufficiency of lower extremity 03/20/2025 12:30 PM ESTColumbus Regional Healthcare Systemtart: 03-20-2025 Subsequent hospital visit by rprqshkgo32/03/2025 12:30 PM EST Hospital Encounter [facility] [address] [place] [address] Katheryn Powers, DO [address] [place] [address] (Work) [facility] -SurgeryStart: 03-18-2025 End: 61-76-0435Ezxpucu encounter yvynniklq64/01/2025 11:30 AM EST Office Visit [facility] [address], [place] [address] Katheryn Powers, DO [address] [place] [address] [facility] Start: 03-04-2025 End: 53-51-5900Pgpazfq encounter gtrfpsfex38/17/2025 2:30 PM EST Office Visit [facility] [address] [place] [address] Farheen Stone MD [address] [place] [address] [facility] CardiologyStart: 02-21-2025 End: 83-82-4975Tmryawa encounter yiczasdzp18/06/2025 8:00 AM EST Office Visit [facility] [address] [place] [address] Farheen Stone MD [address] [place] [address] Sofía Wong MD [address] [place] [address] [facility] CardiologyStart: 02-04-2025 End: 18-52-9191Hugfxft encounter vnmevhwrq71/20/2025 12:45 PM EDT Office Visit [facility] - [facility] [address] [place] [address] Hernando Guerrero MD [address] [place] [address] [facility] - ENTStart: 01-30-2025 End: 69-43-9728Ztzdemfl for laser ablation of Extremity veinVein Treatment Vascular Ultrasound Routine Chronic venous insufficiency of lower extremity Expected: 01/30/2025, Expires: 01/30/2026[facility] Work Phone: Comment on above:Expected: 01/30/2025, Expires: 01/30/2026Start: 01-14-2025 End: 85-60-5095Vbmcptk encounter rjxeilrhx21/29/2025 10:15 AM EDT Office Visit [facility] [place] [address] [place] [address] Katheryn Powers, DO [address] [place] [address] [facility] [place]Start: 06-50-3256BOOZV-19 Vaccine ( season)COVID-19 Vaccine ( season)[facility] SystemStart: 35-54-9100Gtcqjcrpa vaccinationInfluenza VaccineHolzer Health System SystemStart: 11-26-2024 End: 95-42-5540Ajagxpl encounter uigedtnww44/11/2025 2:30 PM EDT [facility] [place] [address] [place] [address] Katheryn Powers, [address] [place] [address] [facility]: 11-26-2024 End: 99-87-8193MIG Abdominal veins and Pelvis veins W contrast IVCT venogram abdomen and pelvis Imaging Routine Bilateral leg edema Expected: 11/26/2024, Expires: 11/26/2025[facility] Work Phone: Comment on above:Expected: 11/26/2024, Expires: 11/26/2025Start: 10-24-2024 End: 73-33-2645Snhucsy encounter ckgbjxeiy40/09/2025 8:45 AM EDT Office Visit [facility] [address] [place] [address] Curry Clemons MD [address] [place] [address] [facility] CardiologyStart: 10-08-2024 End: 34-85-0418Fnqabwb encounter ztbtxmjum44/23/2025 9:30 AM EDT Appointment [facility] Cardiovascular [address] [place] [address] Curry Clemons MD [address] [place] [address] [facility] - CardiovascularStart: 07-33-2681Bikon BMI ScreeningAdult BMI ScreeningProMount Carmel Health System SystemStart: 17-68-2858Cprpckaivy ScreeningDepression ScreeningProMount Carmel Health System SystemStart: 03-33-1961Xzjx Risk ScreeningFall Risk ScreeningProMount Carmel Health System SystemStart: 35-97-2079Qixzcno ScreeningTobacco ScreeningProMount Carmel Health System SystemStart: 05-08-2024 End: 08-31-5746Leksoon encounter svdcceptv89/21/2025 7:30 AM EST Office Visit [facility] [address] [place] [address] 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, BIOLOGICAL SCIENCES INSTRUCTOR-SPEECH AND LANGUAGE ASSISTANT [address] [place] [address] [facility] CardiologyStart: 05-03-2024 End: 76-16-4787Badtci monitor studyHolter monitor 24-48 hour Cardiac Services Routine Abnormal Holter exam PVC (premature ventricular contraction) Expected: 05/03/2024, Expires: 05/03/2025[facility] Work Phone: Comment on above:Expected: 05/03/2024, Expires: 05/03/2025Start: 04-24-2024 End: 59-45-3990Lizlyws encounter procedureC[facility] Clinic [facility] - Stress ImagingStart: 04-16-2024 End: 03-81-6624Beop complete W/O contrastEcho complete W/O contrast Echocardiography Routine PVC (premature ventricular contraction) Coronary arteriosclerosis Expected: 04/16/2024, Expires: 04/16/2025[facility] SystemComment on above:Expected: 04/16/2024, Expires: 04/16/2025Start: 04-16-2024 End: 04-78-0023Ydufyp monitor studyHolter monitor 24-48 hour Cardiac Services Routine PVC (premature ventricular contraction) Expected: 04/16/2024, Expires: 04/16/2025ProCleveland Clinic Hillcrest HospitalKetchuppp Work Phone: Comment on above:Expected: 04/16/2024, Expires: 04/16/2025Start: 04-16-2024 End: 35-18-2123QJ Heart Perfusion W stress and W radionuclide IVNuc stress Lexiscan Cardiac Services Routine PVC (premature ventricular contraction) Coronary arteriosclerosis Expected: 04/16/2024, Expires: 04/16/2025[facility] SystemComment on above:Expected: 04/16/2024, Expires: 04/16/2025Start: 04-16-2024 End: 60-64-9494Rbzcmvh encounter kapxtjfdm97/30/2024 9:00 AM EST Office Visit [facility] [address] [place] [address] Yani Lucio MD [address] [place] [address] [facility] CardiologyStart: 86-42-9289Yeewz BMI ScreeningAdult BMI ScreeningColumbus Regional Healthcare Systemtart: 00-90-8296Usukfsd ScreeningTobacco ScreeningColumbus Regional Healthcare Systemtart: 02-17-2024 End: 14-91-8275Mnzna metabolic 2000 panel - Serum or PlasmaBasic Metabolic Panel Lab Routine Medication refill Arteriosclerosis of arterial coronary artery byp ass graft Bradycardia Expected: 02/17/2024, Expires: 12/29/2024[facility] CenterComment on above:Expected: 02/17/2024, Expires: 12/29/2024Start: 02-17-2024 End: 44-78-1465OEP panel - Blood by Automated countCBC without diff Lab Routine Medication refill Arteriosclerosis of arterial coronary artery bypass graft Bradycardia Expected: 02/17/2024, Expires: 12/29/2024[facility] Comment on above:Expected: 02/17/2024, Expires: 12/29/2024Start: 02-17-2024 End: 95-61-5550Hgsqt panelLipid panel Lab Routine Medication refill Mixed hyperlipidemia Expected: 02/17/2024, Expires: 12/29/2024[facility] Comment on above:Expected: 02/17/2024, Expires: 12/29/2024Start: 02-17-2024 End: 08-37-2182Lmnjfysfa [Mass/volume] in Serum or PlasmaMagnesium Lab Routine Medication refill Bradycardia Hypomagnesemia Expected: 02/17/2024, Expires: [facility]woodsKetchuppp Work Phone: Comment on above:Expected: 02/17/2024, Expires: 12/29/2024Start: 27-46-8247BZIXK-19 Vaccine ()COVID-19 Vaccine ()[facility] SystemStart: 95-63-9064PKVKZ-19 Vaccine ()COVID-19 Vaccine ( season)[facility] Start: 16-62-6283Miyesklxx vaccinationInfluenza VaccineHolzer Health System System Start: 42-92-7403Klfnqtccnx ScreeningDepression ScreeningUniversity Hospitals Geaug[facility] Medical Center Start: 77-54-7609Nrtx Risk ScreeningFall Risk ScreeningUniversity Hospitals Geaug[facility] Center Start: 01-17-2024Medicare Annual Wellness VisitMedicare Annual Wellness Visit [facility]: 13-55-1970IBAPW-19 Vaccine ( season) COVID-19 Vaccine ( season)[facility] SystemStart: 11-29-2020 Abdominal aortic aneurysm screeningAbdominal Aortic Aneurysm (AAA) Screen [facility]: 69-77-9901Tcnhoahmznazax of varicella zoster vaccineZoster (Shingles) Vaccine (1 of 2)[facility]art: 55-46-7467Vqhvcqava for malignant neoplasm of colonColonoscopyColumbus Regional Healthcare Systemtart: 40-54-4508Oqjjc BMI Follow Up PlanAdult BMI Follow Up PlanUniversity Hospitals Geauga Medical Center End: 74-97-9101OEW W Auto Differential panel - BloodCBC auto differential Lab Routine Peripheral polyneuropathy 1 Occurrences starting 09/13/2024 until 09/13/2025[employer] Work Phone: Comment on above:1 Occurrences starting 09/13/2024 until 09/13/2025BC W Auto Differential panel - BloodCBC auto differential Lab Routine Peripheral polyneuropathy 09/13/2024 3:06 PM [facility] End: 93-98-8421LxhubrytibuoqBkmjpbvxgvhhk Lab Routine Peripheral polyneuropathy 1 Occurrences starting 09/13/2024 until 09/13/2025[facility] SystemComment on above:1 Occurrences starting 09/13/2024 until 09/13/2025eruloplasmin Ceruloplasmin Lab Routine Peripheral polyneuropathy 09/13/2024 3:06 PM EDT [facility] SystemMaxcyte SystemCTA Abdominal veins and Pelvis veins W contrast IVCT venogram abdomen and pelvis Imaging Routine Bilateral leg edema 12/06/2024 8:22 AM [facility] End: 08-78-5276Tvsyeyszjfg sedimentation rateErythrocyte Sedimentation Rate (ESR) Lab Routine Peripheral polyneuropathy 1 Occurrences starting 09/13/2024 until 09/13/2025[facility] CenterComment on above:1 Occurrences starting 09/13/2024 until 09/13/2025Erythrocyte sedimentation rateErythrocyte Sedimentation Rate (ESR) Lab Routine Peripheral polyneuropathy 09/13/2024 3:06 PM [facility] End: 59-15-9378Dkad TotalLyme Total Lab Routine Peripheral polyneuropathy 1 Occurrences starting 09/13/2024 until 09/13/2025[facility] CenterComment on above:1 Occurrences starting 09/13/2024 until 09/13/2025Lyme TotalLyme Total Lab Routine Peripheral polyneuropathy 09/13/2024 3:06 PM [facility] End: 24-14-1860Tkoskhfnkkluo Acid, QN, PMethylmalonic Acid, QN, P Lab Routine Peripheral polyneuropathy 1 Occurrences starting 09/13/2024 until 09/13/2025 [facility]ML[facility] HospitalComment on above:1 Occurrences starting 09/13/2024 until 09/13/2025Methylmalonic Acid, QN, PMethylmalonic Acid, QN, P Lab Routine Peripheral polyneuropathy 09/13/2024 3:06 PM [facility] End: 02-67-0550Rqcoblb electrophoresis, serumProtein electrophoresis, serum Lab Routine Peripheral polyneuropathy 1 Occurrences starting 09/13/2024 until 09/13/2025[facility] CenterComment on above:1 Occurrences starting 09/13/2024 until 09/13/2025Protein electrophoresis, serumProtein electrophoresis, serum Lab Routine Peripheral polyneuropathy 09/13/2024 3:06 PM [facility] End: 28-27-2102YLF [facility] Routine Obstructive sleep apnea syndrome 1 Occurrences starting 02/04/2025 until 02/04/2026[facility] Work Phone: Comment on above:1 Occurrences starting 02/04/2025 until 02/04/2026 Immunizations Immunization DateImmunizationNotesCare CalwpekvJlbxztfv21-02-5008Knbfblkpe, UnspecifiedKatheryn Powers DO Work Phone: [facility] CenterMdercz70-87-4834hfxxdrump virus vaccine, unspecified formulationRupa Bhakta [facility]12-04-2023 Influenza, injectable, Madin Raymond Canine Kidney, preservative free, quadrivalentJohn Yuhas DO Work Phone: [facility] CenterPqzgps06-98-6527Imuwswttc, Injectable, Mdck, Preservative Free, QuadKate Powers DO Work Phone: [facility]03-07-2023tetanus toxoid, reduced diphtheria toxoid, and acellular pertussis vaccine, adsorbedJohn Yuhas DO Work Phone: [facility] CenterLqpnaf71-61-9345Bcntdsige, Recombinant, Quadrivalent, Injectable, PreservKate Powers DO Work Phone: [phone] CenterUrbhgg07-82-3213Bzgrwslc, quadrivalent, recombinant, injectable influenza vaccine, preservative freeJohn Yuhas DO Work Phone: [facility] CenterSzskre56-83-3280gckcxxcrt virus vaccine, unspecified formulationJohn Yuhas DO Work Phone: [facility] CenterJphfrn87-12-2994Nsqetgcyz, UnspecifiedKate Powers DO Work Phone: [phone] CenterEwtlaw40-93-8443Ybipqrdfv, Injectable, QuadrivalentKate Powers DO Work Phone: [phone] CenterUzyueh86-43-5592dffivexve, injectable, quadrivalent, contains preservativeJohn Yuhas DO Work Phone: [facility] CenterJlrfqk50-94-4893Hwpftyrmf, Injectable, QuadrivalentKate Powers DO Work Phone: [phone] CenterJahldq68-24-6616ulrwnegoi, injectable, quadrivalent, contains preservativeJohn Yuhas DO Work Phone: [facility] CenterRbrxbx71-30-0802Azoojsmst, Im Trivalent PreservativeKate Powers DO Work Phone: [facility] CenterFfsuel14-29-5149uzqbkztlk, seasonal, injectableJohn Cat DO Work Phone: [facility] CenterMnjybg57-51-0957Nvdhnlvmzpit Conjugate 13-ValentKatheryn Powers DO Work Phone: [phone] CenterYomaqw96-75-1988yjgyjtzthurn conjugate vaccine, 13 valentJohn Cat DO Work Phone: [facility]01-13-2015tetanus toxoid, reduced diphtheria toxoid, and acellular pertussis vaccine, adsorbedJohn Cat DO Work Phone: [facility] CenterNodoig59-96-1926Ghbvwhwimfdl PolysaccharideKatheryn Powers DO Work Phone: [phone] CenterUvqfwi63-38-8702gpeaecscxvgx polysaccharide vaccine, 23 valentJotamra Shelton DO Work Phone: [facility]02-29-2008tetanus toxoid, adsorbedJotamra Shelton DO Work Phone: [facility]02-29-2008tetanus toxoid, unspecified formulationKathui Powers DO Work Phone: [facility] Payers DatePayer CategoryPayerPolicy [id number] IndemnityMEDICAL MUTUAL Member Subscriber Plan / Payer (Effective 2021-Present) Name: Elian Cavazos Relation to Subscriber: Self Name: Elian Cavazos Payer ID: Not on file Type: Not on file Address: [place] [id number] 2021Medicare [id number] 2.16.840.1.770061.3.57[id number] 2.16.840.1.920859.3.579.2.35[id number] 2.16.840.1.057185.3.579.2.7[id number] 2.16.840.1.733780.3.579.2.77022-11-7596Dcixusm171278377 2.16.840.1.790635.3.579.2.93181-12-5177Ytvoibm245401804 2.16.840.1.119217.3.579.2.23486-86-1246Gnkinhf844583799 2.16.840.1.561043.3.579.2.76881-10-7752Gckfbzf9872941 2.16.840.1.121079.3.579.2.65383-97-4374Lvzifhj6817130 2.16.840.1.925421.3.579.2.67009-69-9541Dwightw5040430 2.16.840.1.109007.3.579.2.47481-57-5016Vprcpfj1052523 2.16.840.1.060449.3.579.2.71803-25-1441Exqsbqz4335555 2.16.840.1.068771.3.579.2.34892-58-1751Nfoyctj9055715 2.16.840.1.825125.3.579.2.76857-47-2998Zrssyve6673629 2.16.840.1.444386.3.579.2.36362-34-1800Lznvdnx5087539 2.16.840.1.441673.3.579.2.16880-78-9906Xmzmlsn2597938 2.16.840.1.247830.3.579.2.24477-96-8155Ofdwlxi389344415 2.16.840.1.848652.3.579.2.853050-70-1867Kqbimyw489996919 2.16.840.1.302841.3.579.2.068146-02-0044Saudiok194172340 2.16.840.1.831995.3.579.2.347393-88-2432Gxptkuu090695401 2.16.840.1.414108.3.579.2.354029-20-2383Ssfirbq890480007 2.16.840.1.151428.3.579.2.272942-76-1571Idisqhd537391158 2.16.840.1.754878.3.579.2.820865-76-5501Obepjqe528627961 2.16.840.1.768190.3.579.2.171457-95-3075Ofrtgfd005320158 2.16.840.1.336042.3.579.2.717382-44-1704Xpvufxf074673115 2.16.840.1.412502.3.579.2.504547-72-6118Qmwkoju363633591 2.16840.1.394095.3.579.2.390442-83-0313Pdjuigg495031807 2.16840.1.200963.3.579.2.915575-58-2020Ydvvfaw790309416 2.16840.1.322145.3.579.2.997329-74-7873Yxilhvt739680053 2.840.1.000372.3.579.2.296996-21-1019Zdakjtg289983965 2.840.1.846098.3.579.2.540783-38-3364Qijhfls953613598 2.840.1.526015.3.579.2.336074-74-6619Kjaxsgk770361232 2.840.1.158265.3.579.2.926411-17-9667Dparixs368948437 2.840.1.652149.3.579.2.036809-44-4220Stduecy360624982 2.840.1.554989.3.579.2.687839-05-0038Ywzexml570033606 2.840.1.818225.3.579.2.278566-45-1178Qjfwzha371359817 2.840.1.613261.3.579.2.074216-11-2204Hdwtgqb582865856 2.840.1.255806.3.57[id number] 2.16840.1.26[id number] 2.16840.1.508895.3.579.2.531 [id number] 2..840.1.9[id number] 2..840.1.6[id number] 2..840.1.457080.3.579.2.531 Social History DateTypeDetailFacilityTobacco smoking status NHISUnknown if ever smokedPromedica [facility] Work Phone: Start: 10-19-7371Kwz [facility]art: 03-18-2022 End: 61-95-1879Tusphwr smoking status NHISEx-smokerHolzer [facility] System System History of tobacco useCurrent smokerHolzer Health System SystemHistory of tobacco useCigarette SmokerHolzer Health System SystemStart: 03-17-2022 End: 21-59-2440Zrqqbpwtwd smoked current (pack per day) - [facility] SystemStart: 03-18-2022 End: 68-72-1602Bylfvhm use and exposureSmokeless tobacco non-userHolzer Health System SystemStart: 06-14-2023 End: 83-72-2757Uaiasdhoy beverage intakeCurrent drinker of alcohol (finding) [facility] SystemStart: 03-17-2022 End: [id number] connection and isolation panelProRiverview Regional Medical Center Health SystemDo you belong to any clubs or organizations such as congregational groups, unions, fraternal or athletic groups, or school groups?YesProRiverview Regional Medical Center Health SystemAre you now , , , , never or living with a partner?MarriedProRiverview Regional Medical Center Health SystemHow often to you have a drink containing alcohol?4 or more times a weekProRiverview Regional Medical Center Health SystemHow many standard drinks containing alcohol do you have on a typical day?3 or 4ProRiverview Regional Medical Center Health SystemHow often do you have 6 or more drinks on 1 occasion?NeverProCleveland Clinic [facility] Hospitalca Health System How hard is it for you to pay for the very basics like food, housing, medical care, and heatingNot hard at allProMount Carmel Health System SystemStart: 03-17-2022 Gmietfuxn88BetMgfusv Mipagar SystemStart: [id number] CommentbeerAshtabula General Hospital Mipagar [facility] Hospitaltart: [id number] assigned at birthNot on fileAshtabula General Hospital Mipagar [facility] Hospitaltart: 11-21-2014 End: [id number] (finding)[facility]auga Medical CenterTobacc smoking status NHISUnknown if ever smokedPromedica Bay Park Hospital Work Phone: Clinical Notes 09-09-2020 to 02-06-2025 Note Date & [id number] Miscellaneous Notes* Telephone Encounter - Svetlana Ragland - 02/06/2025 2:01 PM EDT 02/04 received PSG order 02/06 1st call, [facility] said they can't take the call and hung up. Sent letter PSG order and 02/04 [facility]esar notes in [facility] documented in this encounterUniversity Hospitals Geauga Medical Center10-22-2025 Telephone encounter Note* Telephone Encounter - Svetlana Ragland - 02/06/2025 2:01 PM EDT 02/04 received PSG order 02/06 1st call, [facility] said they can't take the call and hung up. Sent letter PSG order and 02/04 Cesar notes in [facility] M[place] [id number] Miscellaneous Notes* Telephone Encounter - Dari Wadsworth - 02/06/2025 9:31 AM EDT Spouse called 02/06. They need sleep order, office notes, and demographics faxed to [facility] at fax: [phone], and [facility] phone # is [phone]. * Telephone Encounter - PINO Wright - 02/06/2025 9:31 AM EDT Faxed to [facility]ann[facility] at [facility] to [phone]. documented in this encounterUniversity Hospitals Geauga Medical Center10-22-2025 Telephone encounter Note* Telephone Encounter - Dari Wadsworth - 02/06/2025 9:31 AM EDT Spouse called 02/06. They need sleep order, office notes, and demographics [facility] fax: [phone], and [facility] phone # is [phone]. [facility]10-22-2025 Telephone encounter Note* Telephone Encounter - PINO Wright - 02/06/2025 9:31 AM EDT Faxed to Shannen at [facility] to [phone]. [facility]10-20-2025 History of Present illness Narrative* Hernando Guerrero MD - 02/04/2025 12:[address] [facility] - ENT [address] [place] [address], [address] [place] [phone] SUBJECTIVE: Patient ID ([id number]): Elian Cavazos is a 69 y.o. male presents today for Chief Complaint Patient presents with Sleep Apnea Inspire consult HPI: Elian presents today as a new patient for evaluation of LINDA, intolerance to CPAP, and to discuss Inspire. He was referred by Dr. Katheryn Powers DO. Today, he reports he was diagnosed with LINDA in 2017. He has tried different types of CPAPs with an intolerance to all. He admits that he has gained weight since his initial sleep study. He has CAD orPAD which is being treated with Plavix. He admits to constant drainage and a globus sensation within his throat. He admits that he is trying to clear his throat. He occasionally brings up what he reports is a scab that is nickel or dime sized. He was treating his acid reflux with Prilosec. He admits to day-time fatigue and snoring. He has no other ENT related concerns at this time. HISTORY: Past Medical History: Diagnosis Date Arthritis Psoriatic CAD (coronary artery disease) Coronary arteriosclerosis Hyperlipidemia Hyperlipidemia Hypertension Phlebitis 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[facility]) PVD (peripheral vascular disease) Sleep apnea Past Surgical History: Procedure Laterality Date COLONOSCOPY 04/18/2007 COLONOSCOPY N/A 08/03/2017 Performed by Alek Shelton DO at [facility] CORONARY ARTERY BYPASS GRAFT 04/18/1997 X's 2 TOTAL KNEE ARTHROPLASTY Right 01/2021 TOTAL KNEE ARTHROPLASTY Left 08/2020 VARICOSE VEIN SURGERY VASECTOMY 04/18/1985 Family History Problem Relation Age of Onset Cardiomyopathy Mother Heart disease Mother Cancer Father Lung Heart disease Father Cancer Brother Leukemia Heart disease Brother Social History Socioeconomic History Marital status: Spouse name: Not on file Number of children: Not on file Years of education: Not on file Highest education level: Associate degree: occupational, technical, or vocational program Occupational History Not on file Tobacco Use Smoking status: Former Current packs/day: 1.00 Average packs/day: 1 pack/day for 15.0 years (15.0 ttl pk-yrs) Types: Cigarettes Smokeless tobacco: Never Vaping Use Vaping status: Never Used Substance and Sexual Activity Alcohol use: Yes Alcohol/week: 2.0 standard drinks of alcohol Types: 2 Cans of beer per week Comment: beer Drug use: No Sexual activity: Not Currently Partners: Female Other Topics Concern Caffeine Use Yes Comment: 1 pot of coffee daily Social History Narrative Not on file Social Drivers of Health Financial Resource Strain: Low Risk (03/17/2022) Overall Financial Resource Strain (CARDIA) Difficulty of Paying Living Expenses: Not hard at all Food Insecurity: No Food Insecurity (10/24/2024) Hunger Screening Food Insecurity - Worry: Never True Food Insecurity - Inability: Never True Transportation Needs: No Transportation Needs (03/17/2022) PRAPARE - Transportation Lack of Transportation (Medical): No Lack of Transportation (Non-Medical): No Physical Activity: Insufficiently Active (03/17/2022) Exercise Vital Sign Days of Exercise per Week: 5 days Minutes of Exercise per Session: 20 min Stress: Unknown (03/17/2022) [employer] [place] [employer] - Occupational Stress Questionnaire Feeling of Stress : Patient declined Social Connections: Socially Integrated (03/17/2022) Social Connection and Isolation Panel Frequency of Communication with Friends and Family: More than three times a week Frequency of Social Gatherings with Friends and Family: More than three times a week Attends Religion Services: More than 4 times per year Active Member of Clubs or Organizations: Yes Attends Club or Organization Meetings: More than 4 times per year Marital Status: Interpersonal Safety: Not At Risk (03/17/2022) Humiliation, Afraid, Rape, and Kick questionnaire Fear of Current or Ex-Partner: No Emotionally Abused: No Physically Abused: No Sexually Abused: No Housing Instability: Not on file No Known Allergies Current Outpatient Medications Medication Sig Dispense Refill ACETAMINOPHEN (TYLENOL ARTHRITIS ORAL) Take 1,300 mg by mouth in the morning. atorvastatin (LIPITOR) 20 mg tablet Take 1 tablet (20 mg total) by mouth once daily at bedtime. 90 tablet 3 celecoxib (CeleBREX) 200 mg capsule Take 1 capsule (200 mg total) by mouth in the morning. cetirizine (ZyrTEC) 10 mg tablet Take 1 tablet (10 mg total) by mouth in the morning. cholecalciferol, vitamin D3, (VITAMIN D3) 1,000 units tablet Take 1 tablet (1,000 Units total) by mouth in the morning. clopidogreL (PLAVIX) 75 mg tablet Take 1 tablet (75 mg total) by mouth in the morning. 90 tablet 3 cyanocobalamin (vitamin B-12) 1000 MCG tablet Take 1 tablet (1,000 mcg total) by mouth in the morning. ezetimibe (ZETIA) 10 mg tablet Take 1 tablet (10 mg total) by mouth in the morning. 90 tablet 3 fluticasone propionate (FLONASE) 50 mcg/actuation nasal spray Administer 1 spray into each nostril as needed for rhinitis or allergies. 16 g 2 inFLIXimab (REMICADE) 10 mg/mL injection Infuse into a venous catheter. Every 16 weeks -700 mg losartan (COZAAR) 100 mg tablet Take 1 tablet (100 mg total) by mouth in the morning. 90 tablet 3 magnesium oxide (MAGOX) 400 mg tablet Take 1 tablet (400 mg total) by mouth in the morning. 90 tablet 3 nitroglycerin (NITROSTAT) 0.[address] 1 tablet (0.4 mg total) under the tongue every 5 (five) minutes as needed for chest pain. 25 tablet 3 omeprazole (PriLOSEC) 20 mg capsule Take 1 capsule (20 mg total) by mouth in the morning. tiZANidine (ZANAFLEX) 4 mg tablet triamcinolone (KENALOG) 0.1 % cream zinc gluconate 50 mg tablet Take 0.5 tablets (25 mg total) by mouth in the morning. pregabalin (LYRICA) 50 mg capsule Take 1 capsule (50 mg total) by mouth once daily at bedtime. 30 capsule 0 No current facility-administered medications for this visit. REVIEW OF SYSTEMS: Review of Systems Constitutional: Negative for chills and fever. HENT: Positive for congestion, postnasal drip and sinus pressure. Negative for sinus pain, sore throat and trouble swallowing. Eyes: Negative for discharge and visual disturbance. Respiratory: Negative for cough and shortness of breath. Cardiovascular: Negative for chest pain and palpitations. Gastrointestinal: Negative for nausea and vomiting. Endocrine: Negative for cold intolerance and heat intolerance. Genitourinary: Negative for difficulty urinating and dysuria. Musculoskeletal: Positive for arthralgias. Negative for back pain. Skin: Negative for color change and rash. Allergic/Immunologic: Positive for environmental allergies (seasonal). Neurological: Negative for dizziness and headaches. Hematological: Bruises/bleeds easily. Psychiatric/Behavioral: Negative for agitation. The patient is not nervous/anxious. Data Reviewed: PHYSICAL EXAMINATION: Ht 182.9 cm (6') Wt 129.3 kg (285 lb) BMI 38.65 kg/m Constitutional: Healthy, Alert, Cooperative, and In No Apparent Distress and Normal Ability to Communicate Voice normal quality and volume Head/Face: Normocephalic, without obvious abnormalities present, Atraumatic, and facial nerve intact bilaterally Eyes: No gross abnormalities. and Gaze Alignment Straight Nose: Normal external nasal skin & alignment upper and lower nasal cartilages, without obvious deformity, caudal septum midline, normal intranasal mucosa, normal turbinates, and no nasal polyps, masses, or signs of recent/active bleeding Oral: Normal appearance upper and lower lips, Buccal Mucosa: normal appearance bilaterally, moist, Age appropriate dentition, Normal gingiva without lesions, Floor of mouth: mucosa normal, no palpable masses, no visible lesions. Clear saliva flow bilateral submandibular ducts., Anterior tongue: Dorsal & Ventral mucosa normal. Protrudes side to side without restriction. No palpable masses., and Normal hard palate Oropharynx: normal-appearing mucosa, no pharyngitis, no exudate, and normal soft palate and uvula Nasopharynx: unable to view due to hyperactive gag reflex and See procedure note., Hypopharynx: unable to view due to hyperactive gag reflex and See procedure note. Larynx: unable to view due to hyperactive gag reflex. and See procedure note. TMJ: no pain, crepitus, or trismus Neck:normal, supple, no adenopathy, thyroid normal in size, no nodules or tenderness, no neck masses palpable, and carotids normal Respiration: No stridor, Normal respiratory effort. Chest expands symmetrically. Clear to auscultation bilaterally without audible wheezes or crackles. Cardiovascular: Regular rate, normal carotid pulse to palpation. S1, S2, regular rate and rhythm without auscultation of a murmur. Neurologic: Grossly normal Alert Oriented X 3 Affect normal Cranial nerves 2 -12 grossly intact Procedure Note: Flexible Laryngoscopy Pre-operative Diagnosis: globus sensation Post-operative Diagnosis: same Surgeon: Hernando Guerrero MD Anesthesia: Oxymetazoline and 4% Lidocaine Endoscopy Type: Flexible Laryngoscopy Procedure Details: Procedure was described in detail. Indications, risks, benefits, and possible complications were discussed and verbal informed consent was obtained. The patient was placed in the sitting position. After topical anesthesia and decongestant applied, a flexible laryngoscope was passed. The nasal cavities, nasopharynx, oropharynx, hypopharynx, and larynx were all examined. Vocal cords were examined during respiration and phonation. The following findings were noted: Findings: Right: No pus, no polyps, nasopharynx and eustachian tube are normal Left: no pus, no polyps, nasopharynx and eustachian tube are normal Base of the tongue and epiglottis appear normal, vocal cords are mobile and without lesion, subglottic space and pyriform sinuses appear normal, inter- arytenoid edema and congestion present Condition: The procedure was successful and and tolerated well. Complications: None ASSESSMENT/PLAN: Elian was seen today for sleep apnea. Diagnoses and all orders for this visit: Obstructive sleep apnea syndrome - PSG Diagnostic; Future Intolerance of continuous positive airway pressure (CPAP) ventilation Snoring Chronic fatigue BMI 38.0-38.9,adult Obesity (BMI 30-39.9) Drainage from nose Globus sensation Laryngopharyngeal reflux (LPR) Nasal congestion Other orders - [facility] - [place], [place] Elian presents today as a new patient for evaluation of LINDA, intolerance to CPAP, and to discuss Inspire. He was referred by Alek Shelton DO. I am ordering a repeat sleep study to be completed in office based on history of cardiac diseases. Treatment options were discussed if he continues to be in tolerant to a CPAP including Inspire. Indications, risks, benefits, and possible complications werediscussed. I explained a sleep-induced direct laryngoscopy will need to be completed before proceeding with surgery. Flexible laryngoscopy completed in-office today with no pus, polyps, or areas of leukoplakia noted. I appreciate inner arytenoid edema, which can indicate PND or acid reflux. Therefore I am starting him on GDMT including Flonase and Astelin, 2 sprays daily to each nostril. Additionally I'll start him on Pepcid 40 mg BID. Plan: 1.) Pursue Sleep Study, I will call with the results. 2.) Start Pepcid 40mg BID, Astelin and Flonase, 2 sprays in each nostril daily 3.) Follow up following follow up with sleep medicine to discuss treatment options Scribe Statement: Scribed for and in the presence of HERNANDO GUERRERO MD by Marvin Hathaway (scribe). Marvin Hathaway 02/04/2025 10:13 AM Provider Statement: I HERNANDO GUERRERO MD personally performed the services described in the documentation as described by the above named scribe in my presence. It is both accurate and complete at the time of final signature. Counseling: The following elements of medical decision making were considered during this visit: Reviewed and summarized previous records. The patient was counseled regarding prognosis, risks and benefits of treatment options, impressions, importance of compliance with treatment and risk factor reductions. Thepatient verbalized understanding and agreement to the plan. Please note that parts of this chart were generated using voice recognition [employer] dictation software. Although every effort was made to ensure the accuracy of this automated hazmat truck driver, some errors in hazmat truck driver may have occurred. Marvin Hathaway CMA 02/04/25 1013 Dasia Nuñez CMA 02/04/25 1224 Marvin Hathaway CMA 02/04/25 1256 Marvin Hathaway CMA 02/04/25 1302 Marvin Hathaway CMA 02/04/25 1307 documented in this [facility]10-20-2025 Instructions* Patient Instructions* Marvin Hathaway CMA - 02/04/2025 12:45 PM EDT Today's examination findings were discussed with the patient/patient's parent or guardian. Recommendations for treatment were provided including the following: - Plan: 1.) Pursue Sleep Study, I will call with the results. 2.) Start Pepcid 40mg BID, Astelin and Flonase, 2 sprays in each nostril daily 3.) Follow up following follow up with sleep medicine to discuss treatment options The patient will contact my office if there are any additional questions or concerns: . Non-emergent messages received through [employer] may take up to 2 business days for a response. documented in this [facility]10-16-2025 Miscellaneous Notes* Telephone Encounter - Dari Ermelinda - 01/31/2025 4:14 PM EDT Patient is scheduled to see Dr Guerrero on 02/04 for sleep apnea and to discuss the inspire. Spouse says it has been 5-8 years since had a sleep study, patient is not using the cpap right now. Do you want them to have a sleep study before he sees Dr Guerrero. Please advise. * Telephone Encounter - Radha Salcedo CNA - 01/31/2025 4:14 PM EDT Should patient have a current sleep study before having an appointment? * Telephone Encounter - Hernando Guerrero MD - 01/31/2025 4:14 PM EDT We can set it up after his visit with me next week * Telephone Encounter - Radha Salcedo CNA - 01/31/2025 4:14 PM EDT LVM for patient. Radha Salcedo CNA 02/01/25 0944 documented in this encounterThe Surgical Hospital at SouthwoodsKetchuppp Brighton [id number] Telephone encounter Note* Telephone Encounter - Dari Wadsworth - 01/31/2025 4:14 PM EDT Patient is scheduled to see Dr Guerrero on 02/04 for sleep apnea and to discuss the inspire. Spouse says it has been 5-8 years since had a sleep study, patient is not using the cpap right now. Do you want them to have a sleep study before he sees Dr Guerrero. Please advise. [facility] Calista [id number] Telephone encounter Note* Telephone Encounter - Radha Salcedo CNA - 01/31/2025 4:14 PM EDT Should patient have a current sleep study before having an appointment? [facility] [place] [id number] Telephone encounter Note* Telephone Encounter - Hernando Guerrero MD - 01/31/2025 4:14 PM EDT We can set it up after his visit with me next week [facility] [place] [facility] Work Phone: [phone] Telephone encounter Note* Telephone Encounter - Radha Salcedo CNA - 01/31/2025 4:14 PM EDT LVM for patient. Radha Salcedo CNA 02/01/2544 [facility]10-09-2025 Miscellaneous Notes* Telephone Encounter - Baljit Anglin CMA - 01/24/2025 9:11 AM EDT Patient is reaching out stating that they need surgery. You seen patient on 01/14. Just needing to know what procedure is needed so I can get working on it. Thank you documented in this encounterUniversity Hospitals Geauga Medical Center10-09-2025 Telephone encounter Note* Telephone Encounter - Baljit Anglin CMA - 01/24/2025 9:11 AM EDT Patient is reaching out stating that they need surgery. You seen patient on 01/14. Just needing to know what procedure is needed so I can get working on it. Thank you [facility]09-29-2025 History of Present illness Narrative* Katheryn Powers DO - 01/14/2025 10:15 AM EDT Images from the original note were not included. CC: Chief Complaint Patient presents with Follow-up Claudication Testing done Chronic Venous Insufficiency Carotid Artery Disease 69 y.o. male with h/o coronary artery disease (CABG), HTN, LINDA, HLD and venous insufficiency. FIELD SCOUT - 11/26/24: h/o previous bilat LE vein stripping in the 1980s. Approx 2 years ago additional laser ablation bilat LE followed by injections. States post- treatment he did not notice any significant improvement/change in LE symptoms. Continues w/ ongoing bilat LE aching, heaviness, pain and edema. Has tried regularly wearing compression for months. Does feel it helps w/ calf/feet edema but then becomes painful at the knees w/ more significant thigh edema and painful varicose veins. Bilat LE w/ equal symptoms. Denies h/o previous ulcerations. No known h/o DVT. +h/o SVT. Does not have home lymphatic pumps. 2-3 mo ago was mowing yard and noted R med thigh pain, redness.Denies pain/cramping in LE w/ activity, rest pain, and/or tissue loss. Previous LE XR and was told he has extensive arterial calcification. Does get nocturnal LE cramping at night after long activity. Has tried B12, mag and gabapentin w/ no improvement. -Neuropathy: ankles and feet feel constantly feel sprained/tight and painful. And toes hurt more when wearing compression. Feet swell at the tops of the feet. -Follows w/ rheumatology for psoriatic arthritis. +LINDA - but unable to tolerate CPAP +sisters w/ LE varicose veins that improved after treatment. Brother - at 37 yo w/ [place] CV abd/pelvis, DEBBIE/PVR, LE art duplex and referral to ENT. 01/14/25: Pt presented to office w/ his who was present for entire visit. Pt continues w/ R medial thigh soreness. Has not yet obtained home lymphatic pumps. Continue w/ ongoing LE symptoms despite compliance w/ regular use of compression socks, activity, attempted weight loss, rest/elevation, and NSAIDs as needed. Chief Complaint Patient presents with Follow-up Claudication Testing done Chronic Venous Insufficiency Carotid Artery Disease Patient Active Problem List Diagnosis Arteriosclerosis of arterial coronary artery bypass graft Hyperlipidemia Stable angina ([facility]-HCC) Essential hypertension Chronic venous insufficiency of lower extremity 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CMS-HCC) Phlebitis of superficial veins of lower extremity Obstructive sleep apnea syndrome Obesity Impaired fasting glucose Atherosclerotic heart disease of [place] coronary artery with other forms of angina pectoris Vitamin B12 deficiency neuropathy Osteoarthritis of knee Artificial knee joint present PVC (premature ventricular contraction) BP 124/69 Pulse 55 Wt 129.3 kg (285 lb) BMI 38.65 kg/m Past Medical History: Diagnosis Date Arthritis Psoriatic CAD (coronary artery disease) Coronary arteriosclerosis Hyperlipidemia Hyperlipidemia Hypertension Phlebitis 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CMS-HCC) PVD (peripheral vascular disease) Sleep apnea Past Surgical History: Procedure Laterality Date COLONOSCOPY 04/18/2007 COLONOSCOPY N/A 08/03/2017 Performed by Alek Shelton DO at [facility] CORONARY ARTERY BYPASS GRAFT 04/18/1997 X's 2 TOTAL KNEE ARTHROPLASTY Right 01/2021 TOTAL KNEE ARTHROPLASTY Left 08/2020 VARICOSE VEIN SURGERY VASECTOMY 04/18/1985 ROS: Review of Systems Respiratory: Negative for shortness of breath. Cardiovascular: Positive for leg swelling. Negative for chest pain. Gastrointestinal: Negative for abdominal pain and blood in stool. Genitourinary: Negative for difficulty urinating, hematuria and scrotal swelling. Skin: Negative for wound. Cancer screening: Colon cancer screening: Up to date Prostate cancer screening: up to date Former Smoker - quit 1997 Personal history of: negative: CVA negative: DVT, PE negative: [place] + CAD, HTN negative: PAD, PVD, claudication positive: dilated LE veins/varicose veins negative: DM Family history of: unknown: Aneurysms positive: Varicose veins (sisters x 2) positive: VTE (DVT/PE) - maternal Physical Exam: Physical Exam Vitals and nursing note reviewed. Constitutional: Appearance: Normal appearance. HENT: Head: Normocephalic and atraumatic. Pulmonary: Effort: Pulmonary effort is normal. Musculoskeletal: General: Normal range of motion. Comments: Moving all ext equally Skin: General: Skin is warm and dry. Neurological: General: No focal deficit present. Mental Status: He is alert and oriented to person, place, and time. Psychiatric: Attention and Perception: Attention normal. Mood and Affect: Mood normal. Speech: Speech normal. Behavior: Behavior is cooperative. 11/26/24 Vascular Exam: POSTERIOR TIBIAL DORSALIS PEDIS R Not easily palpable Not easily palpable L Not easily palpable Not easily palpable 11/26/24 Office Photos: CEAP classification (note all that apply or n/a): CEAP - Clinical class Right Left C0 - No visible or palpable signs of venous disease C1 - Telangiectasias or reticular veins C2 - Varicose veins X X C3 - Edema X X C4a - Pigmentation or eczema X X C4b - Lipodermatosclerosis or atrophie nathalie C4c - Norman phlebectatica C5 - Healed venous ulcer C6 - Active venous ulcer S or A - Symptomatic, i.e. ache, pain, tightness, skin irritation, heaviness, muscle cramps, other complaints attributable to venous dysfunction vs. asymptomatic. S S Venous clinical severity score (VCSS)--none: 0, mild: 1, moderate: 2, severe: 3. Right Left Pain (0- none, 1- occasional pain, not restricting activity, 2- daily pain, interferes with but doesn't prevent regular activity, 3- daily pain, limits most regular daily activity. 2 2 Varicose veins (>/= 3 mm) 0- none, 1 - few scattered, isolated clusters, norman phlebectatica, 2- confined to calf or thigh, 3- involves calf and thigh. 3 3 Venous edema 0- none, 1- limited to foot and ankle, 2- extends above ankle but below knee, 3- extends to knee and above. 3 3 Skin pigmentation (NOT localized over vv) 0- none, 1- limited to perimalleolar area, 2- diffuse over lower third of calf, 3- wider distribution above lower third of calf. 3 3 Inflammation (i.e. erythema, cellulitis, venous eczema, dermatitis) 0- none, 1- limited to perimalleolar area, 2- diffuse over lower third of calf, 3- wider distribution above lower third of calf 1 1 Induration (i.e. fibrosis, atrophie nathalie, LDS) 0- none, 1- limited to perimalleolar area, 2- diffuse over lower third of calf, 3- wider distribution above lower third of calf. 1 1 Active ulcer number- 0- none, 1, 2, >/= 3 Active ulcer duration- < 3 mo (1), > 3 mo < 1 y (2), not healed > 1 y (3) Active ulcer size- diameter < 2 cm (1) , 2-6 cm (2), > 6 cm (3) 0 0 Use of compression therapy 0- not used, 1- intermittent use, 2- wears most days, 3- full compliance 2 2 VCSS summary: right le, left le. Testing Reviewed: CBC with Differential: Lab Results Component Value Date WBC 6.3 09/13/2024 HGB 14.5 09/13/2024 HCT 43.1 09/13/2024 PLT 157 09/13/2024 MCV 91 09/13/2024 MCH 30.8 09/13/2024 MCHC 33.7 09/13/2024 RDW 14.1 09/13/2024 RDW 13.9 07/17/2024 BMP: Lab Results Component Value Date SODIUM 136 07/17/2024 K 3.9 07/17/2024 CL 103 07/17/2024 CO2 24 07/17/2024 BUN 16 07/17/2024 CREATININE 1.16 11/26/2024 CREATININE 1.15 07/17/2024 EGFR 69 11/26/2024 EGFR 69 07/17/2024 GLU 105 (H) 07/17/2024 HgBA1c: No results found for: HGBA1C Lipid Panel: Lab Results Component Value Date CHOL 125 (L) 07/17/2024 TRIG 170 (H) 07/17/2024 HDL 41 07/17/2024 12/10/24 - CTV: Assessment/Plan of care: Please note that total time spent was 20 minutes: Including but not limited to: Preparing to see the patient (e.g., review of tests) Obtaining and/or reviewing separately obtained history Performing a medically appropriate examination and evaluation Counseling and educating the patient/family/caregiver Ordering medications, tests, or procedures In office [facility] imaging and review of findings Documenting visit details Greater than 50% was devoted to counseling and coordination of care, discussing the normal functionof deep and superficial venous systems, and explaining the pathologic processes that lead to ambulatory venous hypertension and leg symptoms of heaviness, fatigue, etcetera. Encounter Diagnoses Name Primary? Chronic venous insufficiency of lower extremity Yes Lymphedema Elian was seen today for follow-up, claudication, chronic venous insufficiency and carotid artery disease. Diagnoses and all orders for this visit: Chronic venous insufficiency of lower extremity - Vein Treatment; Future - Vein Treatment; Future Lymphedema 1. Chronic venous insufficiency of lower extremity - Vein Treatment; Future - Vein Treatment; Future 2. Lymphedema 69 y.o. male with h/o coronary artery disease (CABG), HTN, LINDA, HLD and venous insufficiency. Symptomatic venous insufficiency/Varicose veins: Venous insufficiency US 10/09/24: R - +SVT VV. Absent/prev treated GSV/SSV. No DVT. +common femoral and popliteal deep reflux. + SFJ/GSV reflux, SSV reflux, publicity director vein reflux. L - Absent/prev treated GSV/SSV. No DVT/SVT. No deep reflux. + SFJ reflux, publicity director vein reflux. Discussed mgmt options including continued medical mgmt vs intervention. Pt agreeable to proceed w/intervention at this time given persistent symptoms of aching, pain and edema despite compliance w/regular use of compression socks, activity, attempted weight loss, rest/elevation, and NSAIDs as needed. Recommended treatment plan: will plan timing for OR around ongoing remicaid injections R: open ligation of groin varicosities (directly off the femoral vein w/ no straight segment) with phlebectomy (estimated <10) L: open ligation of groin varicosities (directly off the femoral vein w/ no straight segment) with phlebectomy (estimated <10) Risk vs benefits of procedure discussed. Pt agreeable to proceed. Office to initiate prior-authorization for above intervention and proceed w/ scheduling when able. CTV abd/pelvis 12/10/24: central veins patent, bilat varicose veins directly off the femoral veins. Significant Phlebolymphedema - Pt presents with lymphedema (i89.0) and hyperpigmentation and hemosiderin staining due to the chronic lymphedema. Over the last 4+ WEEKS pt has continued to try elevation, exercise, and compression. However, despite regular compliance with these modalities the pt continues to present with persistent edema of bilateral LE. Patient would benefit from a vasopnuematic pump to help move lymphatic fluids past the point of standard compression garments and improve overall quality of life. Will review insurance/pump status w/ rep. Arterial atherosclerosis: LE arterial duplex/DEBBIE 12/06/24: R - 0.95, PFA stenosis, L - 0.93, SFA stenosis LE symptoms consistent w/ lymphedema and chronic venous disease. Mild arterial disease w/ no contraindication to proceed w/ compression and/or vein treatments. Continue w/ medical mgmt and monitor for symptom progression. Asymptomatic carotid artery disease: US 12/06/24: bilat <50% ICA stenosis No indication for surgical intervention unless symptomatic w/ >50% stenosis or asymptomatic w/ disease progression >70-80% Continue w/ medical mgmt Surveillance plan: repeat carotid duplex yearly to monitor for disease progression. Next due: 11/2025. LINDA: discussed importance of CPAP compliance given severity LE venous disease w/ concern for central venous HTN. Pt unable to tolerate his cpap machine - continue w/ ENT referral to discuss further eval/mgmt of other options. Office to initiate prior-authorization for above intervention and proceed w/ scheduling when able. Katheryn Powers DO Vascular Surgery documented in this encounterUniversity [facility]als [facility]08-11-2025 History of Present illness Narrative* Katheryn Powers DO - 11/26/2024 2:30 PM EDT Images from the original note were not included. CC: Chief Complaint Patient presents with Edema Varicose Veins Testing done Extremity Pain 69 y.o. male with h/o coronary artery disease (CABG), HTN, LINDA, HLD and venous insufficiency. FIELD SCOUT - Pt presented to office w/ his who was present for entire visit. Pt w/ h/o previous bilat LE vein stripping in the 1980s. Approx 2 years ago additional laser ablation bilat LE followed by injections. States post-treatment he did not notice any significant improvement/change in LE symptoms.Continues w/ ongoing bilat LE aching, heaviness, pain and edema. Has tried regularly wearing compression for months. Does feel it helps w/ calf/feet edema but then becomes painful at the knees w/ more significant thigh edema and painful varicose veins. Bilat LE w/ equal symptoms. Denies h/o previous ulcerations. No known h/o DVT. +h/o SVT. Does not have home lymphatic pumps. 2-3 mo ago was mowing yard and noted R med thigh pain, redness.Denies pain/cramping in LE w/ activity, rest pain, and/or tissue loss. Previous LE XR and was told he has extensive arterial calcification. Does get nocturnal LE cramping at night after long activity. Has tried B12, mag and gabapentin w/ no improvement. -Neuropathy: ankles and feet feel constantly feel sprained/tight and painful. And toes hurt more when wearing compression. Feet swell at the tops of the feet. -Follows w/ rheumatology for psoriatic arthritis. +LINDA - but unable to tolerate CPAP +sisters w/ LE varicose veins that improved after treatment. Brother - at 37 yo w/ [place] Chief Complaint Patient presents with Edema Varicose Veins Testing done Extremity Pain Patient Active Problem List Diagnosis Arteriosclerosis of arterial coronary artery bypass graft Hyperlipidemia Stable angina ([facility]) Essential hypertension Chronic venous insufficiency of lower extremity 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[facility]) Phlebitis of superficial veins of lower extremity Obstructive sleep apnea syndrome Obesity Impaired fasting glucose Atherosclerotic heart disease of [place] coronary artery with other forms of angina pectoris Vitamin B12 deficiency neuropathy Osteoarthritis of knee Artificial knee joint present PVC (premature ventricular contraction) BP 131/71 Pulse 60 Wt 129.3 kg (285 lb) BMI 38.65 kg/m Past Medical History: Diagnosis Date Arthritis Psoriatic CAD (coronary artery disease) Coronary arteriosclerosis Hyperlipidemia Hyperlipidemia Hypertension Phlebitis 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[facility]) PVD (peripheral vascular disease) Sleep apnea Past Surgical History: Procedure Laterality Date COLONOSCOPY 04/18/2007 COLONOSCOPY N/A 08/03/2017 Performed by Alek Shelton DO at [facility] CORONARY ARTERY BYPASS GRAFT 04/18/1997 X's 2 TOTAL KNEE ARTHROPLASTY Right 01/2021 TOTAL KNEE ARTHROPLASTY Left 08/2020 VARICOSE VEIN SURGERY VASECTOMY 04/18/1985 ROS: Review of Systems Respiratory: Negative for shortness of breath. Cardiovascular: Positive for leg swelling. Negative for chest pain. Gastrointestinal: Negative for abdominal pain and blood in stool. Genitourinary: Negative for difficulty urinating, hematuria and scrotal swelling. Skin: Negative for wound. Cancer screening: Colon cancer screening: Up to date Prostate cancer screening: up to date Former Smoker - quit 1997 Personal history of: negative: CVA negative: DVT, PE negative: [place] + CAD, HTN negative: PAD, PVD, claudication positive: dilated LE veins/varicose veins negative: DM Family history of: unknown: Aneurysms positive: Varicose veins (sisters x 2) positive: VTE (DVT/PE) - maternal Physical Exam: Physical Exam Vitals and nursing note reviewed. Constitutional: Appearance: Normal appearance. HENT: Head: Normocephalic and atraumatic. Pulmonary: Effort: Pulmonary effort is normal. Musculoskeletal: General: Normal range of motion. Comments: Moving all ext equally Skin: General: Skin is warm and dry. Neurological: General: No focal deficit present. Mental Status: He is alert and oriented to person, place, and time. Psychiatric: Attention and Perception: Attention normal. Mood and Affect: Mood normal. Speech: Speech normal. Behavior: Behavior is cooperative. 11/26/24 Vascular Exam: POSTERIOR TIBIAL DORSALIS PEDIS R Not easily palpable Not easily palpable L Not easily palpable Not easily palpable 11/26/24 Office Photos: CEAP classification (note all that apply or n/a): CEAP - Clinical class Right Left C0 - No visible or palpable signs of venous disease C1 - Telangiectasias or reticular veins C2 - Varicose veins X X C3 - Edema X X C4a - Pigmentation or eczema X X C4b - Lipodermatosclerosis or atrophie nathalie C4c - Norman phlebectatica C5 - Healed venous ulcer C6 - Active venous ulcer S or A - Symptomatic, i.e. ache, pain, tightness, skin irritation, heaviness, muscle cramps, other complaints attributable to venous dysfunction vs. asymptomatic. S S Venous clinical severity score (VCSS)--none: 0, mild: 1, moderate: 2, severe: 3. Right Left Pain (0- none, 1- occasional pain, not restricting activity, 2- daily pain, interferes with but doesn't prevent regular activity, 3- daily pain, limits most regular daily activity. 2 2 Varicose veins (>/= 3 mm) 0- none, 1 - few scattered, isolated clusters, norman phlebectatica, 2- confined to calf or thigh, 3- involves calf and thigh. 3 3 Venous edema 0- none, 1- limited to foot and ankle, 2- extends above ankle but below knee, 3- extends to knee and above. 3 3 Skin pigmentation (NOT localized over vv) 0- none, 1- limited to perimalleolar area, 2- diffuse over lower third of calf, 3- wider distribution above lower third of calf. 3 3 Inflammation (i.e. erythema, cellulitis, venous eczema, dermatitis) 0- none, 1- limited to perimalleolar area, 2- diffuse over lower third of calf, 3- wider distribution above lower third of calf 1 1 Induration (i.e. fibrosis, atrophie nathalie, LDS) 0- none, 1- limited to perimalleolar area, 2- diffuse over lower third of calf, 3- wider distribution above lower third of calf. 1 1 Active ulcer number- 0- none, 1, 2, >/= 3 Active ulcer duration- < 3 mo (1), > 3 mo < 1 y (2), not healed > 1 y (3) Active ulcer size- diameter < 2 cm (1) , 2-6 cm (2), > 6 cm (3) 0 0 Use of compression therapy 0- not used, 1- intermittent use, 2- wears most days, 3- full compliance 1 1 VCSS summary: right le, left le. Testing Reviewed: CBC with Differential: Lab Results Component Value Date WBC 6.3 09/13/2024 HGB 14.5 09/13/2024 HCT 43.1 09/13/2024 PLT 157 09/13/2024 MCV 91 09/13/2024 MCH 30.8 09/13/2024 MCHC 33.7 09/13/2024 RDW 14.1 09/13/2024 RDW 13.9 07/17/2024 BMP: Lab Results Component Value Date SODIUM 136 07/17/2024 K 3.9 07/17/2024 CL 103 07/17/2024 CO2 24 07/17/2024 BUN 16 07/17/2024 CREATININE 1.16 11/26/2024 CREATININE 1.15 07/17/2024 EGFR 69 11/26/2024 EGFR 69 07/17/2024 GLU 105 (H) 07/17/2024 HgBA1c: No results found for: HGBA1C Lipid Panel: Lab Results Component Value Date CHOL 125 (L) 07/17/2024 TRIG 170 (H) 07/17/2024 HDL 41 07/17/2024 Assessment/Plan of care: Please note that total time spent was 45 minutes: Including but not limited to: Preparing to see the patient (e.g., review of tests) Obtaining and/or reviewing separately obtained history Performing a medically appropriate examination and evaluation Counseling and educating the patient/family/caregiver Ordering medications, tests, or procedures In office [facility] imaging and review of findings Documenting visit details Greater than 50% was devoted to counseling and coordination of care, discussing the normal functionof deep and superficial venous systems, and explaining the pathologic processes that lead to ambulatory venous hypertension and leg symptoms of heaviness, fatigue, etcetera. Encounter Diagnoses Name Primary? Chronic venous insufficiency of lower extremity Mixed hyperlipidemia Yes Essential hypertension 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CMS-HCC) Bilateral leg edema Bilateral carotid artery stenosis Claudication LINDA (obstructive sleep apnea) Elian was seen today for edema, varicose veins and extremity pain. Diagnoses and all orders for this visit: Mixed hyperlipidemia - Vas art duplex lwr bilateral; Future - Vas art doppler lwr limited single; Future Chronic venous insufficiency of lower extremity - [facility] [place] [place] Essential hypertension - Vas art duplex lwr bilateral; Future - Vas art doppler lwr limited single; Future 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[facility]) Bilateral leg edema - CT venogram abdomen and pelvis; Future - Creatinine includes GFR, serum; Future Bilateral carotid artery stenosis - Vas carotid duplex bilateral; Future Claudication - Vas art duplex lwr bilateral; Future - Vas art doppler lwr limited single; Future LINDA (obstructive sleep apnea) - [facility] [place]; Future 1. Chronic venous insufficiency of lower extremity - [facility] [place], [place] 2. Mixed hyperlipidemia - Vas art duplex lwr bilateral; Future - Vas art doppler lwr limited single; Future 3. Essential hypertension - Vas art duplex lwr bilateral; Future - Vas art doppler lwr limited single; Future 4. 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[facility]) 5. Bilateral leg edema - CT venogram abdomen and pelvis; Future - Creatinine includes GFR, serum; Future 6. Bilateral carotid artery stenosis - Vas carotid duplex bilateral; Future 7. Claudication - Vas art duplex lwr bilateral; Future - Vas art doppler lwr limited single; Future 8. LINDA (obstructive sleep apnea) [facility] [place] [place]; Future 69 y.o. male with h/o coronary artery disease (CABG), HTN, LINDA, HLD and venous insufficiency. Symptomatic venous insufficiency/Varicose veins: Venous insufficiency US 10/09/24: R - +SVT VV. Absent/prev treated GSV/SSV. No DVT. +common femoral and popliteal deep reflux. + SFJ/GSV reflux, SSV reflux, publicity director vein reflux. L - Absent/prev treated GSV/SSV. No DVT/SVT. No deep reflux. + SFJ reflux, publicity director vein reflux. Continue w/ compression stockings. Anticipate will warrant further surgical treatment of significant venous disease however need additional testing/work-up before proceeding w/ OR. CTV abd/pelvis ordered to evaluate patency of central veins. Significant Phlebolymphedema - Pt presents with lymphedema (i89.0) and hyperpigmentation and hemosiderin staining due to the chronic lymphedema. Over the last 4+ WEEKS pt has continued to try elevation, exercise, and compression. However, despite regular compliance with these modalities the pt continues to present with persistent edema of bilateral LE. Patient would benefit from a vasopnuematic pump to help move lymphatic fluids past the point of standard compression garments and improve overall quality of life. Will discussw/ available reps to determine insurance eligibility. Arterial atherosclerosis: pedal pulses not easily palpable. DEBBIE/PVR and LE arterial duplex ordered Asymptomatic carotid artery disease: pt high risk for carotid artery disease given age, HLD, and smoking history. Carotid duplex ordered. LINDA: discussed importance of CPAP compliance given severity LE venous disease w/ concern for central venous HTN. Pt unable to tolerate his cpap machine - referral placed to ENT for further eval/mgmt of other options. Return to office after CTV, DEBBIE/PVR, LE art duplex and carotid US completed to discuss compliance w/ compression stockings, persistent symptoms and review testing results. Katheryn Powers DO Vascular Surgery documented in this encounterUniversity [facility]als [facility]07-29-2025 Chief complaint+Reason for visit Narrative* Chief Complaint Admit Date EMG - Referral for Alek Salazaralexandria November 13, 2024 9:46am Reason for Visit Admit Date Numbness and tingling November 13, 2024 9: 46am Peripheral neuropathy, idiopathic October 172024 9:46am [facility] Work Phone: 1(593) 385-626707-29-2025 Evaluation note* Diagnosis Onset Date Resolution Status Admit Date Numbness and tingling acuteJuly 2024 9:46amPeripheral neuropathy, idiopathicacuteJuly 2024 9:46am [facility] Work Phone: 1(933) 280-200107-09-2025 History of Present illness Narrative* Curry Clemons MD - 10/24/2024 8:45 AM EDT Elian Cavazos Date of visit: 10/24/2024 Date of : 1955 Age: 68 y.o. Patient Active Problem List Diagnosis Arteriosclerosis of arterial coronary artery bypass graft Hyperlipidemia Stable angina ([facility]) Essential hypertension Chronic venous insufficiency of lower extremity 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[facility]) Phlebitis of superficial veins of lower extremity Obstructive sleep apnea syndrome Obesity Impaired fasting glucose Atherosclerotic heart disease of [place] coronary artery with other forms of angina pectoris Vitamin B12 deficiency neuropathy Osteoarthritis of knee Artificial knee joint present PVC (premature ventricular contraction) No Known Allergies Current Outpatient Medications Medication Sig Dispense Refill ACETAMINOPHEN (TYLENOL ARTHRITIS ORAL) Take 1,300 mg by mouth in the morning. atorvastatin (LIPITOR) 20 mg tablet Take 1 tablet (20 mg total) by mouth once daily at bedtime. 90 tablet 3 celecoxib (CeleBREX) 200 mg capsule Take 1 capsule (200 mg total) by mouth in the morning. cetirizine (ZyrTEC) 10 mg tablet Take 1 tablet (10 mg total) by mouth in the morning. cholecalciferol, vitamin D3, (VITAMIN D3) 1,000 units tablet Take 1 tablet (1,000 Units total) by mouth in the morning. clopidogreL (PLAVIX) 75 mg tablet Take 1 tablet (75 mg total) by mouth in the morning. 90 tablet 3 cyanocobalamin (vitamin B-12) 1000 MCG tablet Take 1 tablet (1,000 mcg total) by mouth in the morning. ezetimibe (ZETIA) 10 mg tablet Take 1 tablet (10 mg total) by mouth in the morning. 90 tablet 3 fluticasone propionate (FLONASE) 50 mcg/actuation nasal spray Administer 1 spray into each nostril as needed for rhinitis or allergies. 16 g 2 inFLIXimab (REMICADE) 10 mg/mL injection Infuse into a venous catheter. Every 16 weeks -700 mg losartan (COZAAR) 100 mg tablet Take 1 tablet (100 mg total) by mouth in the morning. 90 tablet 3 magnesium oxide (MAGOX) 400 mg tablet Take 1 tablet (400 mg total) by mouth in the morning. 90 tablet 3 nitroglycerin (NITROSTAT) 0.[address] 1 tablet (0.4 mg total) under the tongue every 5 (five) minutes as needed for chest pain. 25 tablet 3 omeprazole (PriLOSEC) 20 mg capsule Take 1 capsule (20 mg total) by mouth in the morning. pregabalin (LYRICA) 50 mg capsule Take 1 capsule (50 mg total) by mouth once daily at bedtime. 30 capsule 0 tiZANidine (ZANAFLEX) 4 mg tablet triamcinolone (KENALOG) 0.1 % cream zinc gluconate 50 mg tablet Take 0.5 tablets (25 mg total) by mouth in the morning. No current facility-administered medications for this visit. Chief Complaint Patient presents with Follow-up ov 6 mo holter 10/08 @[facility] donaldo w pt History of Present Illness 68 yo M PMHx Coronary artery disease status post bypass surgery 1997. Plavix 75 mg once daily. Hyperlipidemia . Lipitor 20 mg once daily. Zetia 10 mg once daily. Hypertension . Losartan 100 mg once daily. Sleep apnea Frequent PVCs Psoriatic arthritis . Infliximab. Ischemic cardiomyopathy. Low-normal to mildly reduced LV systolic function. Nuclear stress test 04/10. EF 52%. Infarct noted in apical to basal inferior lateral location. Mildperi-infarct ischemia. Echo 04/10. EF 45-50%. Mild global hypokinesis. No significant valvulopathy. Holter 04/10. Sinus rhythm. Sinus pauses. Longest pause 2.4 seconds. Episodes of second-degree type1 as well as 2-1 av block noted during sleeping hours. Frequent PVC burden of 23%. Monomorphic. Nonsustained VT present. Holter 10/10. Sinus rhythm. 12% PVCs. Episodes of second-degree type 1 as well as 2-1 av block during sleeping hours. Nonsustained VT present. Denies any significant cardiac complaints. No chest pain. No significant shortness of breath. No lightheadedness, syncope No PND, orthopnea Stable lower extremity edema. Past Medical History: Diagnosis Date Arthritis Psoriatic CAD (coronary artery disease) Coronary arteriosclerosis Hyperlipidemia Hyperlipidemia Hypertension Phlebitis 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CMS-HCC) PVD (peripheral vascular disease) Sleep apnea No data recorded No data recorded No data recorded Past Surgical History: Procedure Laterality Date COLONOSCOPY 04/18/2007 COLONOSCOPY N/A 08/03/2017 Performed by Alek Shelton DO at [facility] CORONARY ARTERY BYPASS GRAFT 04/18/1997 X's 2 TOTAL KNEE ARTHROPLASTY Right 01/2021 TOTAL KNEE ARTHROPLASTY Left 08/2020 VARICOSE VEIN SURGERY VASECTOMY 04/18/1985 Family History Problem Relation Age of Onset Cardiomyopathy Mother Heart disease Mother Cancer Father Lung Heart disease Father Cancer Brother Leukemia Heart disease Brother Social History Socioeconomic History Marital status: Spouse name: Not on file Number of children: Not on file Years of education: Not on file Highest education level: Associate degree: occupational, technical, or vocational program Occupational History Not on file Tobacco Use Smoking status: Former Current packs/day: 1.00 Average packs/day: 1 pack/day for 15.0 years (15.0 ttl pk-yrs) Types: Cigarettes Smokeless tobacco: Never Vaping Use Vaping status: Never Used Substance and Sexual Activity Alcohol use: Yes Alcohol/week: 2.0 standard drinks of alcohol Types: 2 Cans of beer per week Comment: beer Drug use: No Sexual activity: Not Currently Partners: Female Other Topics Concern Caffeine Use Yes Comment: 1 pot of coffee daily Social History Narrative Not on file Social Drivers of Health Financial Resource Strain: Low Risk (03/17/2022) Overall Financial Resource Strain (CARDIA) Difficulty of Paying Living Expenses: Not hard at all Food Insecurity: No Food Insecurity (10/24/2024) Hunger Screening Food Insecurity - Worry: Never True Food Insecurity - Inability: Never True Transportation Needs: No Transportation Needs (03/17/2022) PRAPARE - Transportation Lack of Transportation (Medical): No Lack of Transportation (Non-Medical): No Physical Activity: Insufficiently Active (03/17/2022) Exercise Vital Sign Days of Exercise per Week: 5 days Minutes of Exercise per Session: 20 min Stress: Unknown (03/17/2022) [employer] [place] [employer] - Occupational Stress Questionnaire Feeling of Stress : Patient declined Social Connections: Socially Integrated (03/17/2022) Social Connection and Isolation Panel [NHANES] Frequency of Communication with Friends and Family: More than three times a week Frequency of Social Gatherings with Friends and Family: More than three times a week Attends Religion Services: More than 4 times per year Active Member of Clubs or Organizations: Yes Attends Club or Organization Meetings: More than 4 times per year Marital Status: Interpersonal Safety: Not At Risk (03/17/2022) Humiliation, Afraid, Rape, and Kick questionnaire Fear of Current or Ex-Partner: No Emotionally Abused: No Physically Abused: No Sexually Abused: No Housing Instability: Not on file Review of Systems Review of Systems Constitutional: Negative. HENT: Negative. Eyes: Negative. Cardiovascular: Negative. Respiratory: Negative. Endocrine: Negative. Hematologic/Lymphatic: Bruises/bleeds easily. Skin: Negative. Musculoskeletal: Positive for back pain and joint swelling. Gastrointestinal: Negative. Genitourinary: Negative. Neurological: Negative. Psychiatric/Behavioral: Negative. Allergic/Immunologic: Positive for environmental allergies. Vascular: Negative. CARDIOVASCULAR: Please review HPI. Physical Examination General appearance: Alert, oriented and cooperative. In no acute distress. Skin: Warm and dry to touch. Head: Normocephalic, without obvious abnormality, atraumatic. Ears, Nose, Mouth, Throat: Throat clear without erythema or exudate. Dentition intact. Eyes: Conjunctivae unremarkable, EOM intact. Neck: No JVD, No carotid bruit. Neck supple, trachea midline. Respiratory: Clear to auscultation bilaterally, no use of accessory muscles. Cardiovascular: RRR with normal S1 and S2 with no murmurs. Gastrointestinal: Soft, non-tender. Bowel sounds normal. Musculoskeletal: No peripheral edema. Neurologic: Oriented to time, person and place, affect appropriate. No focal/major motor defects noted. Psychiatric: Appropriate mood, memory and judgement. VITAL SIGNS: BP 136/70 Pulse 58 Ht 182.9 cm (6') Wt 128.4 kg (283 lb) SpO2 99% BMI 38.38 kg/m No orders of the defined types were placed in this encounter. There are no discontinued medications. IMPRESSIONS/PLAN 1. PVC (premature ventricular contraction) 1. Frequent PVCs: - burden is as high as 23%. Ranging from 12% to 23%. - PVC morphology is consistent with a left ventricular outflow tract origin. - LV function is low normal 45-50%. LV function has been stable. - no symptoms secondary to PVCs. - not on beta-kemar therapy. Patient has prolonged DE interval at baseline. Episodes of second-degree type 1 as well as 2-1 av block present. - since the LV function is normal and the patient does not have any symptoms secondary to PVCs, will continue with conservative management. - will consider repeating monitor in 1 year. - ask the patient to contact us if there is any change in symptoms. 2. Episodes of second-degree type 1 av block as well as 2-1 av block: Patient has prolonged DE interval at baseline. 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 This is most likely secondary to high vagal tone. No episodes during day. Hold off on AV rhoda blocking agents. No pacing therapy required. 3. Coronary artery disease status post bypass surgery: No ischemic symptoms. LV function low normal. Continue with Plavix, statin and Zetia. 4. Hypertension: Blood pressure is controlled. 5. Hyperlipidemia: Continue with Lipitor and Zetia. TODAYS ORDERS No orders of the defined types were placed in this encounter. FOLLOW UP Return in about 1 year (around 10/24/2025), or 1 year for EP , gen 6 mos. PCP: Alek Shelton Jr, DO Referring Physician: Alek Shelton DO [address] [place] [address] documented in this encounterUniversity Hospitals [facility] Center06-24-2025 Chief complaint+Reason for visit Narrative* Chief Complaint Admit Date M009.24 Z79.899 October 09, 2024 9:06 am EMG - Referral for Alek Shelton November 13, 2024 9:46am [facility] Work Phone: [phone] History of Present illness Narrative* Alek Shelton DO - 09/13/2024 1:45 PM EDT IM PROGRESS NOTE Patient - Elian Cavazos Age - 68 y.o. - 1955 ASSESSMENT & PLAN 1. Peripheral polyneuropathy (Primary) -patient with ongoing neuropathic symptoms which have not responded to supplementation of his B12 -need to evaluate for alternative causes of peripheral neuropathy: - CBC auto differential; Future - Methylmalonic Acid, QN, P; Future - Erythrocyte Sedimentation Rate (ESR); Future - Protein electrophoresis, serum; Future - Ceruloplasmin; Future - Lyme Total; Future - pregabalin (LYRICA) 50 mg capsule; Take 1 capsule (50 mg total) by mouth once daily at bedtime. Dispense: 30 capsule; Refill: 0 - CBC auto differential - Methylmalonic Acid, QN, P - Erythrocyte Sedimentation Rate (ESR) - Protein electrophoresis, serum - Ceruloplasmin - Lyme Total -need to obtain EMG performed 1 year ago to compare to current findings 2. Chronic venous insufficiency of lower extremity -patient previously diagnosed simply with varicose veins, but it appears on exam that there is chronic venous insufficiency and hypertension -need to obtain previous ultrasound and venous procedures performed at [facility] -may need repeat testing of his venous insufficiency for chronic reflux disease. May need vascular evaluation 3. 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[facility]) -overall unchanged, although this may be contributing to some of the foot discomfort -may need bony imaging of the foot and ankle Further recommendations following the results of above testing review Subjective 68-year-old male presents for evaluation of abnormal sensation in his feet. Has been diagnosed withperipheral neuropathy in the past, related to low serum B12 levels. He was started on B12 supplements last year, but did not take them routinely. He did start taking them routinely several months ago, and repeat B12 levels showed values in the low normal range -despite normalization of the B12, he continues to have funny feeling in his feet. The toes feel numb. The bottom of his feet feel like he is walking on gravel. He says that his tendons feel tight inboth the front and back of his ankle. -symptoms are worse on the right compared to the left. -he has not fallen or had any new injury or trauma -he does report that he had an EMG done about a year ago at Dr. Shashi Carl office at [facility]. Does not know the results other than that he was told he had neuropathy -he does have known chronic varicose veins in both lower extremities, with occasional flare-ups of superficial phlebitis, especially on the right leg. He did have some venous ultrasounds done severalyears ago, followed by invasive procedure on the right leg distal to the knee. This was done at [facility]. A review of systems was negative except for the following: General: weight gain Musculoskeletal: joint stiffness and has been having some increased pain in his lower back when he is standing for prolonged periods of time, or walking for prolonged periods of time. Occasionally radiates into his buttock. Neurological: gait disturbance, numbness/tingling, and weakness. Exam BP 102/60 (BP Site: Left Arm, BP Postition: Sitting) Pulse (!) 42 Temp 36.5 C (97.7 F) (Tympanic) Ht 182.9 cm (6') Wt 128.5 kg (283 lb 3.2 oz) SpO2 96% BMI 38.41 kg/m Physical Exam Vitals reviewed. Constitutional: General: He is not in acute distress. Appearance: He is obese. He is not toxic-appearing. HENT: Head: Normocephalic. Right Ear: External ear normal. Left Ear: External ear normal. Mouth/Throat: Mouth: Mucous membranes are moist. Eyes: General: No scleral icterus. Neck: Vascular: No carotid bruit. Cardiovascular: Rate and Rhythm: Normal rate and regular rhythm. Heart sounds: No murmur heard. No gallop. Comments: Posterior tibial pulses not palpable due to edema Pulmonary: Effort: Pulmonary effort is normal. Breath sounds: No wheezing or rales. Abdominal: Palpations: Abdomen is soft. Musculoskeletal: Right lower leg: Edema (1+ to mid tibia) present. Left lower leg: Edema (1+ to mid tibia) present. Comments: Multiple varicose veins noted bilateral lower extremities, and a clustering of firm , varicose veins noted on the medial right thigh Skin: General: Skin is warm and dry. Coloration: Skin is not jaundiced. Findings: No bruising. Comments: Chronic, hemosiderin Rich discoloration of both lower extremities and feet. No open or draining areas. Neurological: General: No focal deficit present. Mental Status: He is alert and oriented to person, place, and time. Sensory: Sensory deficit (Loss of vibratory sensation completely in both great toes, partially at the ankles bilaterally but intact at the knees bilaterally. Diminished pinprick sensation in the S1, L5 dermatome on the left foot, and none on the right foot.) present. Gait: Gait normal. Psychiatric: Mood and Affect: Mood normal. Behavior: Behavior normal. Meds Current Outpatient Medications: ACETAMINOPHEN (TYLENOL ARTHRITIS ORAL), Take 1,300 mg by mouth in the morning., Disp: , Rfl: atorvastatin (LIPITOR) 20 mg tablet, Take 1 tablet (20 mg total) by mouth once daily at bedtime., Disp: 90 tablet, Rfl: 3 celecoxib (CeleBREX) 200 mg capsule, Take 1 capsule (200 mg total) by mouth in the morning., Disp: , Rfl: cetirizine (ZyrTEC) 10 mg tablet, Take 1 tablet (10 mg total) by mouth in the morning., Disp: , Rfl: cholecalciferol, vitamin D3, (VITAMIN D3) 1,000 units tablet, Take 1 tablet (1,000 Units total) by mouth in the morning., Disp: , Rfl: clopidogreL (PLAVIX) 75 mg tablet, Take 1 tablet (75 mg total) by mouth in the morning., Disp: 90 tablet, Rfl: 3 cyanocobalamin (vitamin B-12) 1000 MCG tablet, Take 1 tablet (1,000 mcg total) by mouth in the morning., Disp: , Rfl: ezetimibe (ZETIA) 10 mg tablet, Take 1 tablet (10 mg total) by mouth in the morning., Disp: 90 tablet, Rfl: 3 fluticasone propionate (FLONASE) 50 mcg/actuation nasal spray, Administer 1 spray into each nostrilas needed for rhinitis or allergies., Disp: 16 g, Rfl: 2 inFLIXimab (REMICADE) 10 mg/mL injection, Infuse into a venous catheter. Every 16 weeks -700 mg, Disp: , Rfl: losartan (COZAAR) 100 mg tablet, Take 1 tablet (100 mg total) by mouth in the morning., Disp: 90 tablet, Rfl: 3 magnesium oxide (MAGOX) 400 mg tablet, Take 1 tablet (400 mg total) by mouth in the morning., Disp:90 tablet, Rfl: 3 nitroglycerin (NITROSTAT) 0.4 MG SL tablet, Place 1 tablet (0.4 mg total) under the tongue every 5 (five) minutes as needed for chest pain., Disp: 25 tablet, Rfl: 3 omeprazole (PriLOSEC) 20 mg capsule, Take 1 capsule (20 mg total) by mouth in the morning., Disp: ,Rfl: tiZANidine (ZANAFLEX) 4 mg tablet, , Disp: , Rfl: triamcinolone (KENALOG) 0.1 % cream, , Disp: , Rfl: zinc gluconate 50 mg tablet, Take 0.5 tablets (25 mg total) by mouth in the morning., Disp: , Rfl: pregabalin (LYRICA) 50 mg capsule, Take 1 capsule (50 mg total) by mouth once daily at bedtime., Disp: 30 capsule, Rfl: 0 Lab Results No visits with results within 1 Month(s) from this visit. Latest known visit with results is: Hospital Outpatient Visit on 07/17/2024 Component Date Value Ref Range Status Prostatic specific antigen, screen 07/17/2024 0.12 0.00 - 4.00 ng/mL Final Vitamin B-12 07/17/2024 525 180 - 914 pg/mL Final TSH 07/17/2024 2.30 0.49 - 4.67 uIU/mL Final Cholesterol 07/17/2024 125 (L) 150 - 200 mg/dL Final Triglycerides 07/17/2024 170 (H) 27 - 150 mg/dL Final HDL Cholesterol 07/17/2024 41 >39 mg/dL Final VLDL 07/17/2024 34 (H) 0 - 30 mg/dL Final LDL (calc) 07/17/2024 50 <130 mg/dL Final Cholesterol:HDL Ratio 07/17/2024 3.0 1.0 - 5.0 Final Sodium 07/17/2024 136 134 - 146 mmol/L Final Potassium, Bld 07/17/2024 3.9 3.5 - 5.0 mmol/L Final Chloride 07/17/2024 103 98 - 109 mmol/L Final CO2 07/17/2024 24 22 - 32 mmol/L Final Anion gap 07/17/2024 9 5 - 15 mmol/L Final BUN 07/17/2024 16 5 - 27 mg/dL Final Creatinine 07/17/2024 1.15 0.60 - 1.30 mg/dL Final Glucose 07/17/2024 105 (H) 65 - 99 mg/dL Final Calcium 07/17/2024 9.3 8.5 - 10.5 mg/dL Final Total Protein 07/17/2024 7.9 6.0 - 8.0 g/dL Final Albumin 07/17/2024 4.3 3.2 - 5.3 g/dL Final Alkaline Phosphatase 07/17/2024 51 39 - 130 U/L Final AST 07/17/2024 29 0 - 41 U/L Final ALT 07/17/2024 29 0 - 40 U/L Final Total bilirubin 07/17/2024 0.5 0.3 - 1.2 mg/dL Final eGFR (CKD-EPI)non-race dependent 07/17/2024 69 >59 ml/min/1.73sq.m Final White Blood Cells 07/17/2024 8.6 4.0 - 11.0 X10E9/L Final RBC count 07/17/2024 4.80 4.10 - 5.70 X10E12/L Final Hemoglobin 07/17/2024 14.9 13.0 - 17.0 g/dL Final Hematocrit 07/17/2024 44.3 39 - 49 % Final MCV 07/17/2024 92 80 - 100 fL Final MCH 07/17/2024 31.0 27 - 34 pg Final MCHC 07/17/2024 33.5 32 - 36 g/dL Final RDW 07/17/2024 13.9 11.5 - 15.0 % Final Platelets 07/17/2024 175 150 - 450 X10E9/L Final MPV 07/17/2024 8.2 7 - 12 fL Final % neutrophils 07/17/2024 46.2 % Final % lymphocytes 07/17/2024 42.1 % Final % monocytes 07/17/2024 8.5 % Final % eosinophils 07/17/2024 2.7 % Final % Basophils 07/17/2024 0.5 % Final Neutrophils Absolute (A) 07/17/2024 4.0 1.5 - 6.6 X10E9/L Final Lymphocytes Absolute 07/17/2024 3.6 (H) 1.0 - 3.5 X10E9/L Final Monocytes Absolute 07/17/2024 0.7 0 - 0.9 X10E9/L Final Eosinophils Absolute 07/17/2024 0.2 0.0 - 0.4 X10E9/L Final Basophils Absolute 07/17/2024 0.0 0.0 - 0.2 X10E9/L Final Other Testing No results found. Alek Shelton DO., [facility]: [phone] documented in this encounterUniversity Hospitals Ge[facility] Center04-01-2025 History of Present illness Narrative* Alek Shelton DO - 07/17/2024 1:15 PM EDT IM PROGRESS NOTE Patient - Elian Cavazos Age - 68 y.o. - 1955 ASSESSMENT & PLAN 1. Mixed hyperlipidemia (Primary) -goals of treatment reviewed with the patient. -currently taking atorvastatin 20 mg daily and ezetimibe 10 mg daily -repeat lipid panel to assess efficacy of current treatment and assess for side effects. Further adjustments pending lab results - Comprehensive metabolic panel; Future - Lipid profile; Future - TSH with Reflex; Future 2. 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CMS-HCC) -continues on infliximab 10 mg every 8 weeks -this should not be causing pain in his replaced knees bilaterally -I encouraged him to contact his orthopedic surgeon for re-evaluation of the knee prostheses 3. Vitamin B12 deficiency neuropathy -1000 mcg daily -most recent B12 level 1 year ago still low at 310 pg/dL -repeat B12 level, may need further adjustment to treatment - Vitamin B12; Future 4. Stable angina -unchanged over the past 10 years -does not limit him in his overall daily activities -continue Plavix, and p.r.n. nitroglycerin - CBC auto differential; Future 5. Encounter for screening for malignant neoplasm of prostate -is up-to-date on cancer screening with the: -needs repeat PSA testing. - Prostatic specific antigen screen; Future Subjective CARDIOVASCULAR FOLLOW-UP This is a follow up of a pre-existing problem. Blood pressures are not being checked outside the office. Frequency: rare Readings have been normal. BP readings outside the office range from unknown systolic and unknown diastolic. The ASCVD Risk score ([place] DK, et al., 2019) failed to calculate for the following reasons: The valid total cholesterol range is 130 to 320 mg/dL Patient reports following dosing instructions Physical activity: Exercise is limited by cardiac condition(s): Stable angina and varicose veins, orthopedic condition(s): Bilateral TKA. Dietary efforts show fairly healthy diet with limited sugars and fats. CV symptoms review was positive for chest pain and extremity edema and negative for dizziness, irregular heart beat, palpitations, syncope, cyanosis, and dyspnea with exertion A review of systems was negative except for the following: General: weight gain Cardiovascular: edema, despite wearing compression stockings. Musculoskeletal: pain in knee - bilateral, associated with increased activity Neurological: numbness/tingling and still noted bilaterally in the feet. Is taking his B12 supplement fairly regularly.. Exam BP 132/76 (BP Site: Left Arm, BP Postition: Sitting) Pulse 70 Temp 36.6 C (97.9 F) (Oral) Resp 18 Ht 185.4 cm (6' 0.99 ) Wt 129.4 kg (285 lb 3.2 oz) SpO2 95% BMI 37.64 kg/m Physical Exam Vitals reviewed. Constitutional: General: He is not in acute distress. Appearance: He is obese. He is not toxic-appearing. HENT: Head: Normocephalic. Right Ear: External ear normal. Left Ear: External ear normal. Nose: Nose normal. Mouth/Throat: Mouth: Mucous membranes are moist. Eyes: General: No scleral icterus. Neck: Vascular: No carotid bruit. Cardiovascular: Rate and Rhythm: Normal rate and regular rhythm. Heart sounds: No murmur heard. No gallop. Comments: Posterior tibial pulses not palpable due to edema Pulmonary: Effort: Pulmonary effort is normal. Breath sounds: No wheezing or rales. Abdominal: Palpations: Abdomen is soft. Musculoskeletal: Right lower leg: Edema (2+ to [id number]) present. Left lower leg: Edema (2+ to below the knee) present. Comments: Multiple small varicose veins noted on the feet and ankles. Chronic discoloration bilateral feet and pretibial areas Skin: General: Skin is warm and dry. Coloration: Skin is not jaundiced. Findings: No bruising. Comments: Chronic, hemosiderin Rich discoloration of both lower extremities and feet. No open or draining areas. Neurological: General: No focal deficit present. Mental Status: He is alert and oriented to person, place, and time. Gait: Gait abnormal. Psychiatric: Mood and Affect: Mood normal. Behavior: Behavior normal. Meds Current Outpatient Medications: ACETAMINOPHEN (TYLENOL ARTHRITIS ORAL), Take 1,300 mg by mouth daily. , Disp: , Rfl: atorvastatin (LIPITOR) 20 mg tablet, Take 1 tablet (20 mg total) by mouth once daily at bedtime., Disp: 90 tablet, Rfl: 3 cetirizine (ZyrTEC) 10 mg tablet, Take 1 tablet (10 mg total) by mouth in the morning., Disp: , Rfl: cholecalciferol, vitamin D3, (VITAMIN D3) 1,000 units tablet, Take 1 tablet (1,000 Units total) by mouth in the morning., Disp: , Rfl: clopidogreL (PLAVIX) 75 mg tablet, Take 1 tablet (75 mg total) by mouth in the morning., Disp: 90 tablet, Rfl: 3 cyanocobalamin (vitamin B-12) 1000 MCG tablet, Take 1 tablet (1,000 mcg total) by mouth in the morning., Disp: , Rfl: ezetimibe (ZETIA) 10 mg tablet, Take 1 tablet (10 mg total) by mouth in the morning., Disp: 90 tablet, Rfl: 3 fluticasone propionate (FLONASE) 50 mcg/actuation nasal spray, Administer 1 spray into each nostrilas needed for rhinitis or allergies., Disp: 16 g, Rfl: 2 inFLIXimab (REMICADE) 10 mg/mL injection, Infuse into a venous catheter. Every 16 weeks -700 mg , Disp: , Rfl: losartan (COZAAR) 100 mg tablet, Take 1 tablet (100 mg total) by mouth in the morning., Disp: 90 tablet, Rfl: 3 magnesium oxide (MAGOX) 400 mg tablet, Take 1 tablet (400 mg total) by mouth in the morning., Disp:90 tablet, Rfl: 3 nitroglycerin (NITROSTAT) 0.4 MG SL tablet, Place 1 tablet (0.4 mg total) under the tongue every 5 (five) minutes as needed for chest pain., Disp: 25 tablet, Rfl: 3 omeprazole (PriLOSEC) 20 mg capsule, Take 1 capsule (20 mg total) by mouth in the morning., Disp: ,Rfl: tiZANidine (ZANAFLEX) 4 mg tablet, , Disp: , Rfl: triamcinolone (KENALOG) 0.1 % cream, APPLY TO AFFECTED AREA TWICE A DAY NEEDED, Disp: , Rfl: zinc gluconate 50 mg tablet, Take 0.5 tablets (25 mg total) by mouth in the morning., Disp: , Rfl: Lab Results No visits with results within 1 Month(s) from this visit. Latest known visit with results is: Hospital Outpatient Visit on 04/24/2024 Component Date Value Ref Range Status LVOT stroke volume 04/24/2024 80.19 ml Final LV Systolic Volume 04/24/2024 97.20 mL Final FS 04/24/2024 21 28 - 44 % Final LV Diastolic Volume 04/24/2024 199.00 mL Final LVIDd 04/24/2024 6.60 11.51 - 16.00 cm Final LVIDs 04/24/2024 5.20 6.54 - 9.92 cm Final IVS 04/24/2024 0.80 0.6 - 1.1 cm Final PW 04/24/2024 1.00 0.6 - 1.1 cm Final LVOT diameter 04/24/2024 2.30 cm Final TDI 04/24/2024 10.00 cm/s Final MV TDI E' (medial) 04/24/2024 7.29 cm/s Final LA Volume Index 04/24/2024 23.7 mL/m2 Final E/A ratio 04/24/2024 0.65 Final E wave deceleration time 04/24/2024 440.00 msec Final MV Peak E Pamela 04/24/2024 47.60 cm/s Final MV Peak A Pamela 04/24/2024 72.70 cm/s Final LA size 04/24/2024 4.40 cm Final Aortic root 04/24/2024 3.40 cm Final LA volume 04/24/2024 60.10 cm3 Final RV diastolic dimension (basal) 04/24/2024 36.0 mm Final TAPSE 04/24/2024 1.20 cm Final AV peak pamela 04/24/2024 175.00 cm/s Final LVOT peak pamela 04/24/2024 0.79 m/s Final AV VTI 04/24/2024 42.00 cm Final LVOT peak VTI 04/24/2024 19.30 cm Final AV mean gradient 04/24/2024 7.00 mmHg Final AV peak gradient 04/24/2024 12.25 mmHg Final AV valve area 04/24/2024 1.91 Final Valve area - Index 04/24/2024 0.8 Final MV pressure 1/2 time 04/24/2024 129.00 ms Final MV valve area p 1/2 method 04/24/2024 1.71 cm2 Final PV peak gradient 04/24/2024 5.11 mmHg Final LV ESV A2C 04/24/2024 64.60 mL Final LV ESV A4C 04/24/2024 54.30 mL Final LV RWT 2D 04/24/2024 30.30 Final Echo EF Estimated 04/24/2024 51 % Final AV Velocity Ratio 04/24/2024 0.46 Final Left Ventricle Mass 04/24/2024 254.439151571464196 g Final Interventricular Septum Diastolic * 04/24/2024 8 cm Final ZLVIDS 04/24/2024 -3.46 Final ZLVIDD 04/24/2024 -7.21 Final Energy loss index 04/24/2024 22.60 Final Other Testing No results found. Alek Shelton DO., [facility] Office: [phone] documented in this encounterUniversity Hospitals Geauga Medical Center01-16-2025 Miscellaneous Notes* Telephone Encounter - Francesca Mora CMA - 05/03/2024 10:47 AM EST PHONED CALL RECEIVED FROM PT STATING THAT HE SEEN [facility] TODAY AND THAT [facility] EXPLAINED ALL TESTING RESULTS TO PT AND THAT APPT SCHED FOR 05/08/24 WAS NO LONGER NEEDED AND TO CANCEL APPT. documented in this encounterUniversity Hospitals Geauga Medical Center01-16-2025 Telephone encounter Note* Telephone Encounter - Francesca Mora CMA - 05/03/2024 10:47 AM EST PHONED CALL RECEIVED FROM PT STATING THAT HE SEEN [facility] TODAY AND THAT [facility] EXPLAINED ALL TESTING RESULTS TO PT AND THAT APPT SCHED FOR 05/08/24 WAS NO LONGER NEEDED AND TO CANCEL APPT. [facility]01-16-2025 History of Present illness Narrative* Curry Clemons MD - 05/03/2024 10:00 AM EST Elian Cavazos Date of visit: 05/03/2024 Date of : 1955 Age: 68 y.o. Patient Active Problem List Diagnosis Arteriosclerosis of arterial coronary artery bypass graft Hyperlipidemia Stable ang[place] Essential hypertension Varicose veins 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[facility] Phlebitis of superficial veins of lower extremity Obstructive sleep apnea syndrome Obesity Impaired fasting glucose Atherosclerotic heart disease of [place] coronary artery with other forms of angina pectoris [place] Vitamin B12 deficiency neuropathy [place] Osteoarthritis of knee Artificial knee joint present PVC (premature ventricular contraction) No Known Allergies Current Outpatient Medications Medication Sig Dispense Refill ACETAMINOPHEN (TYLENOL ARTHRITIS ORAL) Take 1,300 mg by mouth daily. atorvastatin (LIPITOR) 20 mg tablet Take 1 tablet (20 mg total) by mouth once daily at bedtime. cetirizine (ZyrTEC) 10 mg tablet Take 1 tablet (10 mg total) by mouth in the morning. cholecalciferol, vitamin D3, (VITAMIN D3) 1,000 units tablet Take 1 tablet (1,000 Units total) by mouth in the morning. clopidogreL (PLAVIX) 75 mg tablet Take 1 tablet (75 mg total) by mouth in the morning. 90 tablet 3 cyanocobalamin (vitamin B-12) 1000 MCG tablet Take 1 tablet (1,000 mcg total) by mouth in the morning. ezetimibe (ZETIA) 10 mg tablet Take 1 tablet (10 mg total) by mouth in the morning. fluticasone propionate (FLONASE) 50 mcg/actuation nasal spray Administer 1 spray into each nostril as needed for rhinitis or allergies. 16 g 2 inFLIXimab (REMICADE) 10 mg/mL injection Infuse into a venous catheter. Every 16 weeks -700 mg losartan (COZAAR) 100 mg tablet Take 1 tablet (100 mg total) by mouth in the morning. magnesium oxide (MAGOX) 400 mg tablet Take 1 tablet (400 mg total) by mouth in the morning. 90 tablet 3 nitroglycerin (NITROSTAT) 0.[address] 1 tablet (0.4 mg total) under the tongue every 5 (five) minutes as needed for chest pain. 25 tablet 3 omeprazole (PriLOSEC) 20 mg capsule Take 1 capsule (20 mg total) by mouth in the morning. triamcinolone (KENALOG) 0.1 % cream APPLY TO AFFECTED AREA TWICE A DAY NEEDED zinc gluconate 50 mg tablet Take 0.5 tablets (25 mg total) by mouth in the morning. No current facility-administered medications for this visit. Chief Complaint Patient presents with Follow-up FIELD SCOUT EP ABN HM SCHED W/ r/s w pt from june appt History of Present Illness 68 yo M PMHx Coronary artery disease status post bypass surgery 1997. Plavix 75 mg once daily. Hyperlipidemia . Lipitor 20 mg once daily. Zetia 10 mg once daily. Hypertension . Losartan 100 mg once daily. Sleep apnea Frequent PVCs Psoriatic arthritis . Infliximab. Ischemic cardiomyopathy. Low-normal to mildly reduced LV systolic function. Nuclear stress test 04/10. EF 52%. Infarct noted in apical to basal inferior lateral location. Mildperi-infarct ischemia. Echo 04/10. EF 45-50%. Mild global hypokinesis. No significant valvulopathy. Holter 04/10. Sinus rhythm. Sinus pauses. Longest pause 2.4 seconds. Episodes of second-degree type1 as well as 2-1 av block noted during sleeping hours. Frequent PVC burden of 23%. Monomorphic. Nonsustained VT present. Patient has no significant cardiac complaints on today's visit. No symptoms secondary to PVCs. No malignant symptoms such as arrhythmic syncope. Past Medical History: Diagnosis Date Arthritis Psoriatic CAD (coronary artery disease) Coronary arteriosclerosis Hyperlipidemia Hyperlipidemia Hypertension Phlebitis 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[facility]) PVD (peripheral vascular disease) [place] Sleep apnea No data recorded No data recorded No data recorded Past Surgical History: Procedure Laterality Date COLONOSCOPY 04/18/2007 COLONOSCOPY N/A 08/03/2017 Performed by Alek Shelton DO at [facility] CORONARY ARTERY BYPASS GRAFT 04/18/1997 X's 2 TOTAL KNEE ARTHROPLASTY Right 01/2021 TOTAL KNEE ARTHROPLASTY Left 08/2020 VARICOSE VEIN SURGERY VASECTOMY 04/18/1985 Family History Problem Relation Age of Onset Cardiomyopathy Mother Heart disease Mother Cancer Father Lung Heart disease Father Cancer Brother Leukemia Heart disease Brother Social History Socioeconomic History Marital status: Spouse name: Not on file Number of children: Not on file Years of education: Not on file Highest education level: Associate degree: occupational, technical, or vocational program Occupational History Not on file Tobacco Use Smoking status: Former Current packs/day: 1.00 Average packs/day: 1 pack/day for 15.0 years (15.0 ttl pk-yrs) Types: Cigarettes Smokeless tobacco: Never Vaping Use Vaping status: Never Used Substance and Sexual Activity Alcohol use: Yes Alcohol/week: 2.0 standard drinks of alcohol Types: 2 Cans of beer per week Comment: beer Drug use: No Sexual activity: Not Currently Partners: Female Other Topics Concern Caffeine Use Yes Comment: 1 pot of coffee daily Social History Narrative Not on file Social Drivers of Health Financial Resource Strain: Low Risk (03/17/2022) Overall Financial Resource Strain (CARDIA) Difficulty of Paying Living Expenses: Not hard at all Food Insecurity: No Food Insecurity (04/16/2024) Hunger Screening Food Insecurity - Worry: Never True Food Insecurity - Inability: Never True Transportation Needs: No Transportation Needs (03/17/2022) PRAPARE - Transportation Lack of Transportation (Medical): No Lack of Transportation (Non-Medical): No Physical Activity: Insufficiently Active (03/17/2022) Exercise Vital Sign Days of Exercise per Week: 5 days Minutes of Exercise per Session: 20 min Stress: Unknown (03/17/2022) [employer] [employer] - Occupational Stress Questionnaire Feeling of Stress : Patient declined Social Connections: Socially Integrated (03/17/2022) Social Connection and Isolation Panel [NHANES] Frequency of Communication with Friends and Family: More than three times a week Frequency of Social Gatherings with Friends and Family: More than three times a week Attends Religion Services: More than 4 times per year Active Member of Clubs or Organizations: Yes Attends Club or Organization Meetings: More than 4 times per year Marital Status: Interpersonal Safety: Not At Risk (03/17/2022) Humiliation, Afraid, Rape, and Kick questionnaire Fear of Current or Ex-Partner: No Emotionally Abused: No Physically Abused: No Sexually Abused: No Housing Instability: Not on file Review of Systems Review of Systems Constitutional: Negative for decreased appetite and malaise/fatigue. HENT: Negative for nosebleeds. Respiratory: Positive for shortness of breath. Negative for cough and wheezing. Hematologic/Lymphatic: Does not bruise/bleed easily. Musculoskeletal: Positive for joint swelling (legs) and muscle cramps (legs). Negative for joint pain and muscle weakness. Gastrointestinal: Negative for bloating, abdominal pain, nausea and vomiting. Neurological: Positive for dizziness. Negative for headaches, light-headedness and loss of balance.Brief paralysis: when bending/standing too quick. Vascular: Negative for claudication and lower extremity wounds or ulcers. CARDIOVASCULAR: Please review HPI. Physical Examination General appearance: Alert, oriented and cooperative. In no acute distress. Skin: Warm and dry to touch. Head: Normocephalic, without obvious abnormality, atraumatic. Ears, Nose, Mouth, Throat: Throat clear without erythema or exudate. Dentition intact. Eyes: Conjunctivae unremarkable, EOM intact. Neck: No JVD, No carotid bruit. Neck supple, trachea midline. Respiratory: Clear to auscultation bilaterally, no use of accessory muscles. Cardiovascular: RRR with normal S1 and S2 with no murmurs. Gastrointestinal: Soft, non-tender. Bowel sounds normal. Musculoskeletal: No peripheral edema. Neurologic: Oriented to time, person and place, affect appropriate. No focal/major motor defects noted. Psychiatric: Appropriate mood, memory and judgement. VITAL SIGNS: BP 126/80 Pulse (!) 44 Ht 185.4 cm (6' 0.99 ) Wt 124.7 kg (275 lb) SpO2 98% BMI 36.29 kg/m No orders of the defined types were placed in this encounter. There are no discontinued medications. IMPRESSIONS/PLAN 1. Abnormal [facility] exam [facility] - [place], [place] - POCT EKG - Holter monitor 24-48 hour; Future 2. PVC (premature ventricular contraction) - [facility] - [place], [place] - POCT EKG - Holter monitor 24-48 hour; Future Assessment and plan: 1. Frequent PVCs: - burden is as high as 23%. - PVC morphology is consistent with a left ventricular outflow tract origin. - LV function is low normal 45-50%. LV function has been stable. - no symptoms secondary to PVCs. - not on beta-kemar therapy. Patient has prolonged DE interval at baseline. Episodes of second-degree type 1 as well as 2-1 av block present. - since the LV function is normal and the patient does not have any symptoms secondary to PVCs, will continue with conservative management. Repeat Holter monitor in 6 months. - if the PVC burden continues to be high, will discuss PVC ablation procedure on next visit. 2. Episodes of second-degree type 1 av block as well as 2-1 av block: Patient has prolonged DE interval at baseline. 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 This is most likely secondary to high vagal tone. No episodes during day. Hold off on AV rhoda blocking agents. No pacing therapy required. 3. Coronary artery disease status post bypass surgery: No ischemic symptoms. LV function low normal. Continue with Plavix, statin and Zetia. 4. Hypertension: Blood pressure is controlled. 5. Hyperlipidemia: Continue with Lipitor and Zetia. EP follow-up in 6 months. TODAYS ORDERS Orders Placed This Encounter Procedures Holter monitor 24-48 hour POCT EKG FOLLOW UP Return in about 6 months (around 10/31/2024). PCP: Alek Shelton Jr, DO Referring Physician: Yani Lucio MD [address] [place] [address] documented in this [facility]01-13-2025 Miscellaneous Notes* Telephone Encounter - Viktor Mancilla RN - 04/30/2024 4:40 PM EST Images from the original note were not included. Viktor Mancilla RN 04/30/2024 4:40 PM EST Back to Top Holter results and LLDs recommendations called and reviewed with patient. Pt agreeable to EP referral in [place] and was also given the [facility] office number. Viktor Mancilla RN 04/30/2024 8:47 AM EST LMOM (ok-hipaa) with Holter results and LLDs recommendations. Logistics Operations Director asked for r/c to office to further discuss. Yani Lucio MD 04/30/2024 7:40 AM EST EP consult please. For his I would prefer sooner rather than waiting for a more convenient location [facility] Telephone encounter Note* Telephone Encounter - Viktor Mancilla RN - 04/30/2024 4:40 PM EST Images from the original note were not included. Viktor Mancilla RN 04/30/2024 4:40 PM EST Back to Top Holter results and LLDs recommendations called and reviewed with patient. Pt agreeable to EP referral in [place] and was also given the [facility] office number. Viktor Mancilla RN 04/30/2024 8:47 AM EST LMOM (ok-hipaa) with Holter results and LLDs recommendations. Logistics Operations Director asked for r/c to office to further discuss. Yani Lucio MD 04/30/2024 7:40 AM EST EP consult please. For his I would prefer sooner rather than waiting for a more convenient location [facility]12-30-2024 History of Present illness Narrative* Yani Lucio MD - 04/16/2024 9:00 AM EST Elian Gaffney Cavazos Date of visit: 04/16/2024 Date of : 1955 Age: 68 y.o. Patient Active Problem List Diagnosis Arteriosclerosis of arterial coronary artery bypass graft Hyperlipidemia Stable angina ([facility]) Essential hypertension Varicose veins 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[facility]) Phlebitis of superficial veins of lower extremity Obstructive sleep apnea syndrome Obesity Impaired fasting glucose Atherosclerotic heart disease of [place] coronary artery with other forms of angina pectoris ([facility]) Vitamin B12 deficiency neuropathy ([facility]) Osteoarthritis of knee Artificial knee joint present PVC (premature ventricular contraction) No Known Allergies Current Outpatient Medications Medication Sig Dispense Refill ACETAMINOPHEN (TYLENOL ARTHRITIS ORAL) Take 1,300 mg by mouth daily. cetirizine (ZyrTEC) 10 mg tablet Take 1 tablet (10 mg total) by mouth in the morning. cholecalciferol, vitamin D3, (VITAMIN D3) 1,000 units tablet Take 1 tablet (1,000 Units total) by mouth in the morning. cyanocobalamin (vitamin B-12) 1000 MCG tablet Take 1 tablet (1,000 mcg total) by mouth in the morning. fluticasone propionate (FLONASE) 50 mcg/actuation nasal spray Administer 1 spray into each nostril as needed for rhinitis or allergies. 16 g 2 inFLIXimab (REMICADE) 10 mg/mL injection Infuse into a venous catheter. Every 16 weeks -700 mg magnesium oxide (MAGOX) 400 mg tablet Take 1 tablet (400 mg total) by mouth in the morning. 90 tablet 3 omeprazole (PriLOSEC) 20 mg capsule Take 1 capsule (20 mg total) by mouth in the morning. triamcinolone (KENALOG) 0.1 % cream APPLY TO AFFECTED AREA TWICE A DAY NEEDED zinc gluconate 50 mg tablet Take 0.5 tablets (25 mg total) by mouth in the morning. atorvastatin (LIPITOR) 20 mg tablet Take 1 tablet (20 mg total) by mouth once daily at bedtime. clopidogreL (PLAVIX) 75 mg tablet Take 1 tablet (75 mg total) by mouth in the morning. 90 tablet 3 ezetimibe (ZETIA) 10 mg tablet Take 1 tablet (10 mg total) by mouth in the morning. losartan (COZAAR) 100 mg tablet Take 1 tablet (100 mg total) by mouth in the morning. nitroglycerin (NITROSTAT) 0.[address] 1 tablet (0.4 mg total) under the tongue every 5 (five) minutes as needed for chest pain. 25 tablet 3 No current facility-administered medications for this visit. Chief Complaint Patient presents with Follow-up EST PT 12 MO FU ECHO L/S LABS DONE AT [facility] History of Present Illness I had the opportunity to meet this 68-year-old today. He was last in the office 03/29/2023 He has rare chest burning. He has not used sublingual nitroglycerin since his last visit He denies worsening shortness of breath, syncope or palpitations He is retired from [employer] and . 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 He is unaccompanied today CV TESTING HISTORY: ECHO: Echo complete W/ contrast Result Date: 04/19/2023 Left Ventricle: Systolic function is low normal to mildly decreased with an ejection fraction. Visual ejection fraction closer to 50%. No definite regional wall abnormalities. No significant valvularstenosis or regurgitation. STRESS: No results found. HOLTER: No results found. CARDIAC CATH: No results found. CAROTID: No results found. CXR: No results found. Lipid Profile: No data recorded No data recorded No data recorded EK04/16/2024 sinus with frequent PVCs and nonspecific ST abnormalities Past Medical History: Diagnosis Date Arthritis Psoriatic CAD (coronary artery disease) Coronary arteriosclerosis Hyperlipidemia Hyperlipidemia Hypertension Phlebitis 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[facility]) PVD (peripheral vascular disease) [place] Past Surgical History: Procedure Laterality Date COLONOSCOPY 04/18/2007 COLONOSCOPY N/A 08/03/2017 Performed by Alek Shelton DO at [facility] CORONARY ARTERY BYPASS GRAFT 04/18/1997 X's 2 TOTAL KNEE ARTHROPLASTY Right 01/2021 TOTAL KNEE ARTHROPLASTY Left 08/2020 VARICOSE VEIN SURGERY VASECTOMY 04/18/1985 Family History Problem Relation Age of Onset Cardiomyopathy Mother Heart disease Mother Cancer Father Lung Heart disease Father Cancer Brother Leukemia Heart disease Brother Social History Socioeconomic History Marital status: Spouse name: Not on file Number of children: Not on file Years of education: Not on file Highest education level: Associate degree: occupational, technical, or vocational program Occupational History Not on file Tobacco Use Smoking status: Former Current packs/day: 1.00 Average packs/day: 1 pack/day for 15.0 years (15.0 ttl pk-yrs) Types: Cigarettes Smokeless tobacco: Never Vaping Use Vaping status: Never Used Substance and Sexual Activity Alcohol use: Yes Alcohol/week: 2.0 standard drinks of alcohol Types: 2 Cans of beer per week Comment: beer Drug use: No Sexual activity: Not Currently Partners: Female Other Topics Concern Caffeine Use Yes Comment: 1 pot of coffee daily Social History Narrative Not on file Social Drivers of Health Financial Resource Strain: Low Risk (03/17/2022) Overall Financial Resource Strain (CARDIA) Difficulty of Paying Living Expenses: Not hard at all Food Insecurity: No Food Insecurity (04/16/2024) Hunger Screening Food Insecurity - Worry: Never True Food Insecurity - Inability: Never True Transportation Needs: No Transportation Needs (03/17/2022) PRAPARE - Transportation Lack of Transportation (Medical): No Lack of Transportation (Non-Medical): No Physical Activity: Insufficiently Active (03/17/2022) Exercise Vital Sign Days of Exercise per Week: 5 days Minutes of Exercise per Session: 20 min Stress: Unknown (03/17/2022) [employer] [place] [employer] - Occupational Stress Questionnaire Feeling of Stress : Patient declined Social Connections: Socially Integrated (03/17/2022) Social Connection and Isolation Panel [NHANES] Frequency of Communication with Friends and Family: More than three times a week Frequency of Social Gatherings with Friends and Family: More than three times a week Attends Religion Services: More than 4 times per year Active Member of Clubs or Organizations: Yes Attends Club or Organization Meetings: More than 4 times per year Marital Status: Interpersonal Safety: Not At Risk (03/17/2022) Humiliation, Afraid, Rape, and Kick questionnaire Fear of Current or Ex-Partner: No Emotionally Abused: No Physically Abused: No Sexually Abused: No Housing Instability: Not on file Review of Systems Review of Systems Constitutional: Positive for malaise/fatigue. HENT: Negative. Eyes: Negative. Vascular: Negative. Respiratory: Negative. Endocrine: Negative. Hematologic/Lymphatic: Bruises/bleeds easily. Skin: Negative. Musculoskeletal: Positive for back pain, joint swelling and muscle weakness. Gastrointestinal: Negative. Genitourinary: Negative. Neurological: Negative. Psychiatric/Behavioral: Negative. Allergic/Immunologic: Positive for environmental allergies. CARDIOVASCULAR: Please review HPI. Physical Examination Alert, pleasant Neck: No JVD, No carotid bruit. Neck supple, trachea midline. Respiratory: Clear to auscultation bilaterally, no use of accessory muscles. Cardiovascular: RRR with normal S1 and S2 with no murmurs. Musculoskeletal: No peripheral edema. VITAL SIGNS: BP 136/70 (BP Site: Left Arm, BP Postition: Sitting) Pulse 50 Ht 185.4 cm (6' 1 ) Wt 127.9 kg(282 lb) SpO2 98% BMI 37.21 kg/m Orders Placed or Reconciled This Encounter Medications cyanocobalamin (vitamin B-12) 1000 MCG tablet Sig: Take 1 tablet (1,000 mcg total) by mouth in the morning. zinc gluconate 50 mg tablet Sig: Take 0.5 tablets (25 mg total) by mouth in the morning. nitroglycerin (NITROSTAT) 0.4 MG SL tablet Sig: Place 1 tablet (0.4 mg total) under the tongue every 5 (five) minutes as needed for chest pain. Dispense: 25 tablet Refill: 3 losartan (COZAAR) 100 mg tablet Sig: Take 1 tablet (100 mg total) by mouth in the morning. ezetimibe (ZETIA) 10 mg tablet Sig: Take 1 tablet (10 mg total) by mouth in the morning. clopidogreL (PLAVIX) 75 mg tablet Sig: Take 1 tablet (75 mg total) by mouth in the morning. Dispense: 90 tablet Refill: 3 atorvastatin (LIPITOR) 20 mg tablet Sig: Take 1 tablet (20 mg total) by mouth once daily at bedtime. Medications Discontinued During This Encounter Medication Reason nitroglycerin (NITROSTAT) 0.4 MG SL tablet Reorder atorvastatin (LIPITOR) 20 mg tablet Reorder losartan (COZAAR) 100 mg tablet Reorder ezetimibe (ZETIA) 10 mg tablet Reorder clopidogreL (PLAVIX) 75 mg tablet Reorder IMPRESSIONS/PLAN 1. Bradycardia - POCT EKG - nitroglycerin (NITROSTAT) 0.4 MG SL tablet; Place 1 tablet (0.4 mg total) under the tongue every 5 (five) minutes as needed for chest pain. Dispense: 25 tablet; Refill: 3 - losartan (COZAAR) 100 mg tablet; Take 1 tablet (100 mg total) by mouth in the morning. - ezetimibe (ZETIA) 10 mg tablet; Take 1 tablet (10 mg total) by mouth in the morning. - clopidogreL (PLAVIX) 75 mg tablet; Take 1 tablet (75 mg total) by mouth in the morning. Dispense:90 tablet; Refill: 3 - atorvastatin (LIPITOR) 20 mg tablet; Take 1 tablet (20 mg total) by mouth once daily at bedtime. 2. PVC (premature ventricular contraction) - Holter monitor 24-48 hour; Future - Echo complete W/O contrast; Future - Nuc stress Lexiscan; Future 3. Essential hypertension - nitroglycerin (NITROSTAT) 0.4 MG SL tablet; Place 1 tablet (0.4 mg total) under the tongue every 5 (five) minutes as needed for chest pain. Dispense: 25 tablet; Refill: 3 - losartan (COZAAR) 100 mg tablet; Take 1 tablet (100 mg total) by mouth in the morning. - ezetimibe (ZETIA) 10 mg tablet; Take 1 tablet (10 mg total) by mouth in the morning. - clopidogreL (PLAVIX) 75 mg tablet; Take 1 tablet (75 mg total) by mouth in the morning. Dispense:90 tablet; Refill: 3 - atorvastatin (LIPITOR) 20 mg tablet; Take 1 tablet (20 mg total) by mouth once daily at bedtime. 4. Mixed hyperlipidemia - nitroglycerin (NITROSTAT) 0.4 MG SL tablet; Place 1 tablet (0.4 mg total) under the tongue every 5 (five) minutes as needed for chest pain. Dispense: 25 tablet; Refill: 3 - losartan (COZAAR) 100 mg tablet; Take 1 tablet (100 mg total) by mouth in the morning. - ezetimibe (ZETIA) 10 mg tablet; Take 1 tablet (10 mg total) by mouth in the morning. - clopidogreL (PLAVIX) 75 mg tablet; Take 1 tablet (75 mg total) by mouth in the morning. Dispense:90 tablet; Refill: 3 - atorvastatin (LIPITOR) 20 mg tablet; Take 1 tablet (20 mg total) by mouth once daily at bedtime. 5. Arteriosclerosis of arterial coronary artery bypass graft - nitroglycerin (NITROSTAT) 0.4 MG SL tablet; Place 1 tablet (0.4 mg total) under the tongue every 5 (five) minutes as needed for chest pain. Dispense: 25 tablet; Refill: 3 - losartan (COZAAR) 100 mg tablet; Take 1 tablet (100 mg total) by mouth in the morning. - ezetimibe (ZETIA) 10 mg tablet; Take 1 tablet (10 mg total) by mouth in the morning. - clopidogreL (PLAVIX) 75 mg tablet; Take 1 tablet (75 mg total) by mouth in the morning. Dispense:90 tablet; Refill: 3 - atorvastatin (LIPITOR) 20 mg tablet; Take 1 tablet (20 mg total) by mouth once daily at bedtime. 6. Stable angina ([facility]) - nitroglycerin (NITROSTAT) 0.4 MG SL tablet; Place 1 tablet (0.4 mg total) under the tongue every 5 (five) minutes as needed for chest pain. Dispense: 25 tablet; Refill: 3 7. Coronary arteriosclerosis - Echo complete W/O contrast; Future - Nuc stress Lexiscan; Future - nitroglycerin (NITROSTAT) 0.4 MG SL tablet; Place 1 tablet (0.4 mg total) under the tongue every 5 (five) minutes as needed for chest pain. Dispense: 25 tablet; Refill: 3 - losartan (COZAAR) 100 mg tablet; Take 1 tablet (100 mg total) by mouth in the morning. - ezetimibe (ZETIA) 10 mg tablet; Take 1 tablet (10 mg total) by mouth in the morning. - clopidogreL (PLAVIX) 75 mg tablet; Take 1 tablet (75 mg total) by mouth in the morning. Dispense:90 tablet; Refill: 3 - atorvastatin (LIPITOR) 20 mg tablet; Take 1 tablet (20 mg total) by mouth once daily at bedtime. 1. ASCVD --history of CABG 1997 --clopidogrel --abnormal stress test 2016 felt to be consistent with known anatomy with chronic total occlusion of left circumflex and chronic total occlusion of the radial graft to the circumflex 2. Hyperlipidemia --atorvastatin and Zetia --labs at [facility] 3. Primary hypertension, controlled 4. Obstructive sleep apnea --CPAP 5. Asymptomatic PVCs --on Holter 04/2023 burden of 16.6% with longest nonsustained VT of 7 beats 6. Low normal to mildly decreased left ventricular systolic function on echocardiogram 03/2023 7. Psoriatic arthritis Last stress test in 2017. Would expect some ischemia but patient's PVC burden is noted. Will also obtain echo and Holter TODAYS ORDERS Orders Placed This Encounter Procedures Holter monitor 24-48 hour Nuc stress Lexiscan POCT EKG Echo complete W/O contrast FOLLOW UP Return in about 6 months (around 10/15/2024). PCP: Alek Shelton Jr, DO Referring Physician: Alek Shelton DO [address] [place] [address] documented in this encounterUniversity Hospitals [facility]12-27-2024 Miscellaneous Notes* Telephone Encounter - Jannet Nichole CMA - 04/13/2024 2:27 PM EST Called patient to remind them to bring their most current copy of their medication list with them to their appt. Patient verbalizes understanding. documented in this encounterUniversity Hospitals [facility]12-27-2024 Telephone encounter Note* Telephone Encounter - Jannet Nichole CMA - 04/13/2024 2:27 PM EST Called patient to remind them to bring their most current copy of their medication list with them to their appt. Patient verbalizes understanding. [facility]09-25-2024 Miscellaneous Notes* Telephone Encounter - Kristine Yanez RN - 01/11/2024 2:52 AM EDT Please sign and route if you agree. Thank you RASHEED 03/29/23 Lipids 02/24/23 CBC 02/2022 - Lab orders in place and lab slips mailed to pt on 01/02/24 per telephone encounter. CMP 06/14/23 documented in this encounterUniversity Hospitals [facility]09-25-2024 Telephone encounter Note* Telephone Encounter - Kristine Yanez RN - 01/11/2024 2:52 AM EDT Please sign and route if you agree. Thank you RASHEED 03/29/23 Lipids 02/24/23 CBC 02/2022 - Lab orders in place and lab slips mailed to pt on 01/02/24 per telephone encounter. CMP 06/14/23 [facility]09-13-2024 Miscellaneous Notes* Telephone Encounter - Rupa Bhakta RN - 12/30/2023 2:35 PM EDT Patient called office wanting to get lipids checked prior to appt 04/16/24 with [facility]. Due for labs from refill protocol. Will be due after feb 24, all labs for all meds ordered. * Telephone Encounter - Rupa Bhakta RN - 12/30/2023 2:35 PM EDT All lab slips printed and mailed to patient. documented in this encounterUniversity Hospitals Ge[facility] Center09-13-2024 Telephone encounter Note* Telephone Encounter - Rupa Bhakta RN - 12/30/2023 2:35 PM EDT Patient called office wanting to get lipids checked prior to appt 04/16/24 with LLD. Due for labs from refill protocol. Will be due after feb 24, all labs for all meds ordered. [facility]09-13-2024 Telephone encounter Note* Telephone Encounter - Rupa Bhakta RN - 12/30/2023 2:35 PM EDT All lab slips printed and mailed to patient. [facility]02-27-2024 History of Present illness Narrative* Alek Shelton, DO - 06/14/2023 8:30 AM EST IM PROGRESS NOTE Patient - Elian Cavazos Age - 67 y.o. - 1955 ASSESSMENT & PLAN 1. Vitamin B12 deficiency [place]currently not on cyanocobalamin -has not noticed change in sensation with or without treatment -the swollen failing, may actually be swelling because of his chronic venous insufficiency. -repeat B12 level - Vitamin B12; Future 2. Atherosclerotic heart disease of [place] coronary artery with other forms of angina pectoris [place] -overall stable. -reviewed results of recent echocardiogram and event monitor with the patient. Does have borderlineEF, does have frequent PVCs and had 7 beat run VT - Comprehensive metabolic panel; Future 3. 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 -currently on Remicade -skin symptoms are improved -joint symptoms controlled 4. Seasonal allergic rhinitis, unspecified trigger -refill Flonase - fluticasone propionate (FLONASE) 50 mcg/actuation nasal spray; Administer 1 spray into each nostril as needed for rhinitis or allergies. Dispense: 16 g; Refill: 2 Subjective 67-year-old male presents for recheck on his peripheral neuropathy, and varicose veins. -he currently is taking cyanocobalamin supplementation for ongoing abnormal sensation bilateral feet. His toes and feet event mild swollen sensation. No tingling or burning noted. At last check, despite supplementation, his B12 levels had not risen. He has not had any falls or trips because of the abnormal sensation. It does not bother him at night. Is worse when he is standing for long periods of time. -varicose veins are unchanged. He did see vascular surgery about intervention, but very few of his varicosities were amenable to intervention. Compression stockings were recommended. He wears these intermittently, perhaps 50-60% of the time. Still has chronic discoloration in the lower extremities. A review of systems was negative except for the following: ENT: nasal congestion and needs refill on his Flonase Neurological: continued numbness bilateral feet Dermatological: continues with chronic discoloration of the lower extremities. Exam BP 130/66 (BP Site: Left Arm, BP Postition: Sitting) Pulse 71 Temp 37 C (98.6 F) (Oral) Ht 185.4 cm (6' 1 ) Wt 122.8 kg (270 lb 11.2 oz) SpO2 96% BMI 35.71 kg/m Physical Exam Vitals reviewed. Constitutional: General: He is not in acute distress. Appearance: He is obese. He is not toxic-appearing. HENT: Head: Normocephalic. Right Ear: External ear normal. Left Ear: External ear normal. Nose: Congestion present. Mouth/Throat: Mouth: Mucous membranes are moist. Eyes: General: No scleral icterus. Conjunctiva/sclera: Conjunctivae normal. Neck: Vascular: No carotid bruit. Cardiovascular: Rate and Rhythm: Normal rate and regular rhythm. Heart sounds: No murmur heard. No gallop. Comments: Posterior tibial pulses not palpable due to edema Pulmonary: Effort: Pulmonary effort is normal. Breath sounds: No wheezing or rales. Abdominal: Palpations: Abdomen is soft. Musculoskeletal: Right lower leg: Edema (1+ to mid tibia) present. Left lower leg: Edema (1+ to mid tibia) present. Comments: Multiple small varicose veins noted on the feet and ankles. Skin: General: Skin is warm and dry. Coloration: Skin is not jaundiced. Findings: No bruising. Comments: Chronic, hemosiderin Rich discoloration of both lower extremities and feet. No open or draining areas. Neurological: General: No focal deficit present. Mental Status: He is alert and oriented to person, place, and time. Psychiatric: Mood and Affect: Mood normal. Behavior: Behavior normal. Meds Current Outpatient Medications: ACETAMINOPHEN (TYLENOL ARTHRITIS ORAL), Take 1,300 mg by mouth daily. , Disp: , Rfl: atorvastatin (LIPITOR) 20 mg tablet, Take 1 tablet (20 mg total) by mouth in the morning., Disp: 90tablet, Rfl: 3 cetirizine (ZyrTEC) 10 mg tablet, Take 1 tablet (10 mg total) by mouth in the morning., Disp: , Rfl: cholecalciferol, vitamin D3, (VITAMIN D3) 1,000 units tablet, Take 1 tablet (1,000 Units total) by mouth in the morning., Disp: , Rfl: clopidogreL (PLAVIX) 75 mg tablet, Take 1 tablet (75 mg total) by mouth in the morning., Disp: 90 tablet, Rfl: 3 ezetimibe (ZETIA) 10 mg tablet, Take 1 tablet (10 mg total) by mouth in the morning., Disp: 90 tablet, Rfl: 3 inFLIXimab (REMICADE) 10 mg/mL injection, Infuse into a venous catheter. Every 16 weeks -700 mg , Disp: , Rfl: losartan (COZAAR) 100 mg tablet, Take 1 tablet (100 mg total) by mouth in the morning., Disp: 90 tablet, Rfl: 3 magnesium oxide (MAGOX) 400 mg tablet, Take 1 tablet (400 mg total) by mouth in the morning., Disp:90 tablet, Rfl: 3 nitroglycerin (NITROSTAT) 0.4 MG SL tablet, Place 1 tablet (0.4 mg total) under the tongue every 5 (five) minutes as needed for chest pain., Disp: 25 tablet, Rfl: 3 omeprazole (PriLOSEC) 20 mg capsule, Take 1 capsule (20 mg total) by mouth in the morning., Disp: ,Rfl: triamcinolone (KENALOG) 0.1 % cream, APPLY TO AFFECTED AREA TWICE A DAY NEEDED, Disp: , Rfl: fluticasone propionate (FLONASE) 50 mcg/actuation nasal spray, Administer 1 spray into each nostrilas needed for rhinitis or allergies., Disp: 16 g, Rfl: 2 Lab Results No visits with results within 1 Month(s) from this visit. Latest known visit with results is: Hospital Outpatient Visit on 04/15/2023 Component Date Value Ref Range Status LVOT stroke volume 04/15/2023 70.60 ml Final LV Diastolic Volume 04/15/2023 210.00 mL Final LV Systolic Volume 04/15/2023 112.00 mL Final FS 04/15/2023 39 28 - 44 % Final LVIDd 04/15/2023 5.90 9.93 - 13.81 cm Final LVIDs 04/15/2023 3.60 5.68 - 8.61 cm Final IVS 04/15/2023 1.00 0.6 - 1.1 cm Final PW 04/15/2023 1.20 0.6 - 1.1 cm Final LVOT diameter 04/15/2023 1.90 cm Final TDI 04/15/2023 9.14 cm/s Final MV TDI E' (medial) 04/15/2023 5.98 cm/s Final LA Volume Index 04/15/2023 30.5 mL/m2 Final E/A ratio 04/15/2023 1.17 Final E wave deceleration time 04/15/2023 243.00 msec Final MV Peak E Pamela 04/15/2023 69.40 cm/s Final MV Peak A Pamela 04/15/2023 59.10 cm/s Final LA size 04/15/2023 4.90 cm Final Aortic root 04/15/2023 3.50 cm Final LA volume 04/15/2023 76.00 cm3 Final RV diastolic dimension (basal) 04/15/2023 42.0 mm Final TAPSE 04/15/2023 1.65 cm Final AV peak pamela 04/15/2023 166.00 cm/s Final LVOT peak pamela 04/15/2023 1.12 m/s Final AV VTI 04/15/2023 38.00 cm Final LVOT peak VTI 04/15/2023 24.90 cm Final AV mean gradient 04/15/2023 6.00 mmHg Final AV peak gradient 04/15/2023 11.02 mmHg Final AV valve area 04/15/2023 1.86 cm2 Final Valve area - Index 04/15/2023 0.7 Final MV pressure 1/2 time 04/15/2023 71.00 ms Final MV valve area p 1/2 method 04/15/2023 3.10 cm2 Final TR Peak Pamela 04/15/2023 2.3 m/s Final TR peak gradient 04/15/2023 20.00 mmHg Final Inferior Vena Cava Diameter 04/15/2023 27.00 cm Final LV ESV A2C 04/15/2023 84.30 mL Final LV ESV A4C 04/15/2023 68.30 mL Final LV RWT 2D 04/15/2023 40.68 Final Echo EF Estimated 04/15/2023 47 % Final AV Velocity Ratio 04/15/2023 0.66 Final IVC proximal 04/15/2023 27 cm Final Left Ventricle Mass 04/15/2023 271.109212425249753 g Final Interventricular Septum Diastolic * 04/15/2023 10 cm Final RVID d 04/15/2023 4.2 cm Final TASV 04/15/2023 8.7 cm/s Final RA 2D Volume 04/15/2023 23.9 mL/m2 Final Est. RA pressure 04/15/2023 15 mmHg Final RA area 04/15/2023 20.2 cm2 Final RV Peak Systolic Pressure 04/15/2023 35 mmHg Final ZLVIDS 04/15/2023 -5.25 Final ZLVIDD 04/15/2023 -6.86 Final Energy loss index 04/15/2023 0.95 Final Other Testing No results found. Alek Shelton DO., [facility]: [phone] documented in this encounterUniversity Hospitals [facility]10-04-2021 NoteProcedure: Right Total knee arthroplasty Implant sizes for this patient's total knee listed below: Stacey persona Femur: 12 CR right Tibia: J right Liner: 10 mm MC vitamin E Patella: Not resurfaced Cement: Refobacin R 0.5g gentamicin 1X40 and Stacey Biomet cement without antibiotic 1X40. Preoperative diagnosis: Right knee OA Postoperative diagnosis: Same Surgeon: Jyoti Shirt Cleaner: Alex Hayes, PAC was required to help position the patient, retract intraoperatively and manipulate the leg and assist and reducing and dislocating the total knee components during and throughout the entire operation. Also was required in assistance to do deep closure of the operative site. The other surgical techs were involved on back table working not available to assist and this portion of the operation. Anesthesia: Spinal supplemented with periarticular total joint compound 100ml injection. Complications: None Hemostasis aids: Bovie and Aqua Mantys were used on all appropriate soft tissue bleeding sites achieving very satisfactory hemostasis. EBL: 50 ml Fluids: 500 ml TXAoral and IA Patellar cut: None Tibial cut: 12 mm off lateral side Femoral cut: 5? valgus standard cut Prophylactic antibiotics: Ancef -3 g Tourniquet time: 57 minutes at 300 mmHg. Operative Indications: The patient has failed conservative treatment with the above diagnosis. The patient was seen and evaluated in preoperative holding. After discussing the risks, benefits, alternatives, the patient elected to proceed via informed consent on file at [employer] for a right Total Knee Replacement. Operative Findings: The patient has end-stage osteoarthritis of the right knee with grossly intact patella surface and cartilage to allow for non-resurfaced patella total knee. After insertion of theabove components, the patient's knee had full extension and flexion to 125 degrees. There was good patellar balance and patellar tracking, ligamentous balance throughout the range of motion, and a dry capsular closure test. Operative Procedure: The patient was brought into the operating room. Prophylactic antibiotics weregiven. The patient recieved adequate anesthesia as described above. The patient was carefully positioned supine. The right knee was then prepped and draped in the usual sterile manner. The marked incision was injected with quarter percent plain Marcaine. The leg was exsanguinated by elevation and the tourniquet inflated. The medial parapatellar incision was performed for a medial parapatellar approach to the knee. The medial retinaculum was opened. The quad tendon was incised longitudinally on the medial side for 4-5 cm. Dissection was performed medially along the MCL releasing only the proximal portion adjacent to the joint line. The patella was found as above and was not resurfaced. The anterior horn of the medial meniscus was removed as well as the infrapatellar and suprapatellar fat pads. Hemostasis was obtained with the Aqua Mantys and Bovie cautery. The intrameduallary canal of the femur was entered after resecting the ACL/PCL. The corresponding valgus guide as referred to the above was used with the femoral cut. This was performed with an oscillating saw protecting the collateral ligaments and the extensor mechanism. Tibial retractors were placed and resection off the tibiawas performed as described above. An extramedullary tibial cutting guide and the oscillating saw were used. The tibial plateau fragment was removed along with any remaining meniscal tissue. The PCL was excised. The medial and lateral meniscus was removed and meniscal beds were injected with total joint compound mixture for postoperative pain. The femur was sized and the corresponding cutting block was applied. It was centered on the femur. Anterior and posterior resections were performed as well as chamfers with the oscillating saw. The cutting block was removed. Any excess bone was removed. Posterior osteophytes were excised with a curved osteotome. The knee was trialed. The sizes described above provided the greatest stability and range of motion. The tibial keel/pegs was created in appr opriate rotation using the drill and punch. There was excellent hemostasis for cement technique.Thetibia was cemented. The femur was then cemented also using the cement gun to improve cement penetration into cancellus bone. The tourniquet was released and there was good hemostasis. The final linerwas locked into position on the tibial plate. The cement was allowed to harden and excess cement removed. The retinaculum was closed using interrupted #1 PDS and running bidirectional #2 barbed suture. Thecapsular closure test was dry. Subcutaneous layer was closed with a running 2-0 V lock barbed suture. The skin was closed using 2-0 barbed running bidirectional suture followed by Mastisol and Steri-Strips. The knee was injected with total joint compound mixture for postoperative pain. Betadine 17.5 ml in 500 ml of normal saline was used intraop (more content not included)...[facility]05-25-2021 NoteProcedure: Left Total knee arthroplasty Implant sizes for this patient's total knee listed below: Stacey persona Femur: 12 CR Left Tibia: J left Liner: 13 mm MC vitamin E Patella: Not resurfaced Cement: Refobacin R 0.5g gentamicin 1X40 and Stacey Biomet cement without antibiotic 1X40. Preoperative diagnosis: Left knee OA Postoperative diagnosis: Same Surgeon: Jyoti Shirt Cleaner: Alex Hayes, PAC was required to help position the patient, retract intraoperatively and manipulate the leg and assist and reducing and dislocating the total knee components during and throughout the entire operation. Also was required in assistance to do deep closure of the operative site. The other surgical techs were involved on back table working not available to assist and this portion of the operation. Anesthesia: Spinal supplemented with periarticular total joint compound 100ml injection. Complications: None Hemostasis aids: Bovie and Aqua Mantys were used on all appropriate soft tissue bleeding sites achieving very satisfactory hemostasis. EBL: 50 ml Fluids: 1200 ml TXAoral and IA Patellar cut: None Tibial cut: 12 mm off lateral side Femoral cut: 5? valgus standard cut Prophylactic antibiotics: Ancef -3 g Tourniquet time: 50 minutes at 300 mmHg Operative Indications: The patient has failed conservative treatment with the above diagnosis. The patient was seen and evaluated in preoperative holding. After discussing the risks, benefits, alternatives, the patient elected to proceed via informed consent on file at [employer] for a left Total Knee Replacement. Operative Findings: The patient has end-stage osteoarthritis of the left knee with grossly intact patella surface and cartilage to allow for non-resurfaced patella total knee. After insertion of the above components, the patient's knee had full extension and flexion to 125 degrees. There was good patellar balance and patellar tracking, ligamentous balance throughout the range of motion, and a drycapsular closure test. Operative Procedure: The patient was brought into the operating room. Prophylactic antibiotics weregiven. The patient recieved adequate anesthesia as described above. The patient was carefully positioned supine. The left knee was then prepped and draped in the usual sterile manner. The marked incision was injected with quarter percent plain Marcaine. The leg was exsanguinated by elevation and the tourniquet inflated. The medial parapatellar incision was performed for a medial parapatellar approach to the knee. The medial retinaculum was opened. The quad tendon was incised longitudinally on the medial side for 4-5 cm. Dissection was performed medially along the MCL releasing only the proximal portion at the joint line. The patella was found as above and not resurfaced. The anterior horn of the medial meniscus was removed as well as the infrapatellar and suprapatellar fat pads. Hemostasis was obtained with the Aqua Mantys and Bovie cautery. The intrameduallary canal of the femur was entered after resecting the ACL/PCL. The corresponding valgus guide as referred to the above was used with the femoral cut. This was performed with an oscillating saw protecting the collateral ligamentsand the extensor mechanism. Tibial retractors were placed and resection off the tibia was performedas described above. An extramedullary tibial cutting guide and the oscillating saw were used. The ti bial plateau fragment was removed along with any remaining meniscal tissue. The PCL was excised. The medial and lateral meniscus was removed and meniscal beds were injected with total joint compound mixture for postoperative pain. The femur was sized and the corresponding cutting block was applied.It was centered on the femur. Anterior and posterior resections were performed as well as chamfers with the oscillating saw. The cutting block was removed. Any excess bone was removed. Posterior osteophytes were excised with a curved osteotome. The knee was trialed. The sizes described above provided the greatest stability and range of motion. The tibial keel/pegs was created in appropriate rotation using the drill and punch. There was excellent hemostasis for cement technique. The tibia was cemented. The femur was then cemented also using the cement gun to improve cement penetration into cancellus bone. The final liner was locked into position on the tibial plate. The tourniquet was released and there was good hemostasis. The cement was allowed to harden and excess cement removed. The retinaculum was closed using interrupted #1 PDS and running bidirectional #2 barbed suture. Thecapsular closure test was dry. Subcutaneous layer was closed with a running 2-0 V lock barbed suture. The skin was closed using 2-0 barbed running bidirectional suture followed by Mastisol and Steri-Strips. The knee was injected with total joint compound mixture for postoperative pain. Betadine 17.5 ml in 500 ml of normal saline was used intraoperatively for irrig (more content not included)...[facility] SystemEvaluation noteNo assessment information availablePromedica Bay Park Hospital Work Phone: Evaluation note* Diagnosis Bradycardia- Primary Other specified cardiac dysrhythmias PVC (premature ventricular contraction) Other premature beats Essential hypertension Unspecified essential hypertension Mixed hyperlipidemia Arteriosclerosis of arterial coronary artery bypass graft Stable angina ([facility]) Other and unspecified angina pectoris Coronary arteriosclerosis Coronary atherosclerosis of unspecified type of vessel, [place] or graft documented in this encounter [facility] SystemEvaluation note* Diagnosis Abnormal Holter exam- Primary PVC (premature ventricular contraction) Other premature beats documented in this encounter [facility] SystemEvaluation note* Diagnosis PVC (premature ventricular contraction)- Primary Other premature beats Abnormal Holter exam documented in this encounter [facility] SystemEvaluation note* Diagnosis Vitamin B12 deficiency neuropathy ([facility] Other B-complex deficiencies Atherosclerotic heart disease of [place] coronary artery with other forms of angina pectoris ([facility] 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[facility]) Psoriatic arthropathy Seasonal allergic rhinitis, unspecified trigger documented in this encounter [facility] SystemEvaluation note* Diagnosis Medication refill- Primary Issue of repeat prescriptions Arteriosclerosis of arterial coronary artery bypass graft Mixed hyperlipidemia Bradycardia Other specified cardiac dysrhythmias Hypomagnesemia Disorders of magnesium metabolism documented in this encounter [facility] SystemEvaluation note* Diagnosis Arteriosclerosis of arterial coronary artery bypass graft Stable angina ([facility]-HCC) Other and unspecified angina pectoris Essential hypertension Unspecified essential hypertension Coronary arteriosclerosis Coronary atherosclerosis of unspecified type of vessel, [place] or graft Mixed hyperlipidemia Bradycardia Other specified cardiac dysrhythmias documented in this encounter [facility] SystemEvaluation note* Diagnosis Arteriosclerosis of arterial coronary artery bypass graft Essential hypertension Unspecified essential hypertension Coronary arteriosclerosis Coronary atherosclerosis of unspecified type of vessel, [place] or graft Mixed hyperlipidemia Bradycardia Other specified cardiac dysrhythmias documented in this encounter [facility] SystemEvaluation note* Diagnosis Bradycardia Other specified cardiac dysrhythmias Essential hypertension Unspecified essential hypertension Mixed hyperlipidemia Arteriosclerosis of arterial coronary artery bypass graft Coronary arteriosclerosis Coronary atherosclerosis of unspecified type of vessel, [place] or graft documented in this encounter [facility] SystemEvaluation note* Diagnosis Mixed hyperlipidemia- Primary 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[facility]) Psoriatic arthropathy Vitamin B12 deficiency neuropathy Other B-complex deficiencies Stable angina Other and unspecified angina pectoris Encounter for screening for malignant neoplasm of prostate documented in this encounter [facility] SystemEvaluation note* Diagnosis Peripheral polyneuropathy- Primary Chronic venous insufficiency of lower extremity 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[facility]) Psoriatic arthropathy documented in this encounter [facility] SystemEvaluation note* Diagnosis PVC (premature ventricular contraction)- Primary Other premature beats [facility] SystemEvaluation note* Diagnosis Mixed hyperlipidemia- Primary Chronic venous insufficiency of lower extremity Essential hypertension Unspecified essential hypertension 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[facility]) Psoriatic arthropathy Bilateral leg edema Edema Bilateral carotid artery stenosis Occlusion and stenosis of carotid artery without mention of cerebral infarction Claudication Unspecified peripheral vascular disease LINDA (obstructive sleep apnea) Obstructive sleep apnea (adult) (pediatric) Bilateral carotid artery stenosis Occlusion and stenosis of carotid artery without mention of cerebral infarction Mixed hyperlipidemia Essential hypertension Unspecified essential hypertension Claudication Unspecified peripheral vascular disease Mixed hyperlipidemia Essential hypertension Unspecified essential hypertension Claudication Unspecified peripheral vascular disease documented in this encounter [facility] SystemEvaluation note* Diagnosis Chronic venous insufficiency of lower extremity- Primary Lymphedema Other noninfectious lymphedema documented in this encounter [facility] SystemEvaluation note* Diagnosis Chronic venous insufficiency of lower extremity- Primary Obstructive sleep apnea syndrome- Primary Obstructive sleep apnea (adult) (pediatric) Intolerance of continuous positive airway pressure (CPAP) ventilation Snoring Other dyspnea and respiratory abnormality Chronic fatigue Other malaise and fatigue BMI 38.0-38.9,adult Obesity (BMI 30-39.9) Drainage from nose Globus sensation Gastrointestinal malfunction arising from mental factors Laryngopharyngeal reflux (LPR) Nasal congestion Other diseases of nasal cavity and sinuses Chronic venous insufficiency of lower extremity [facility] filedocumented in this encounter [facility]ructionsNot on filedocumented in this encounter [facility]ructionsNot on filedocumented in this encounter [facility] SystemInstructionsNot on filedocumented in this encounter [facility]ructionsNot on filedocumented in this encounter [facility]ructionsNot on filedocumented in this encounter [facility]ructionsNot on filedocumented in this encounter [facility]ructionsNot on filedocumented in this encounter [facility]ructionsNot on filedocumented in this encounter [facility]ructionsNot on filedocumented in this encounter [facility]ructionsNot on filedocumented in this encounter [facility]ructionsNot on filedocumented in this encounter [facility]InstructionsNot on filedocumented in this encounter [facility] SystemInstructionsNot on filedocumented in this encounter [facility] SystemInstructionsNot on filedocumented in this encounter [facility] SystemReason for referral (narrative)No reason for referral information availableAshtabula County Medical Center Work Phone: Summary Purpose Family History No Family History Records FoundNo Family History Records FoundNo Family History Records FoundNo Family History Records FoundNo Family History Records FoundNo Family History Records FoundNo Family History Records Found Advance Directives Advance Directive Response Recorded Date/ Time Advance Directives No August 15 12:55pm Chief Complaint and Reason for Visit Chief Complaint L40.59 Z79.899 Chief Complaint Admit Date M06.09,Z79.899 July 03, 2024 9:2 2am Additional Source Comments (unrecognized sect ion and content) No Status Records FoundNo Status Records FoundNo Status Records FoundNo Status Records FoundNo Status Records FoundNo Status Records FoundNo Status Records Found INFORMATION SOURCE (unrecogn ized section and content) DATE CREATED AUTHOR 01/20/2021 [facility] DATE CREATED AUTHOR AUTHOR'S ORGANIZ ATION 03/13/2021 [facility] DATE CREATED AUTHOR AUTHOR'S ORGANIZ ATION 09/02/2022 [facility] DATE CREATED AUTHOR AUTHOR'S ORGANIZ ATION 12/12/2024 [facility] DATE CREATED AUTHOR AUTHOR'S ORGANIZ ATION 01/20/2025 [facility] DATE CREATED AUTHOR AUTHOR'S ORGANIZ ATION 01/25/2025 [facility] DATE CREATED AUTHOR AUTHOR'S ORGANIZ ATION 02/05/2025 [facility] Care Teams (unrecognized sec tion and content) Team Status: Inactive Member Role Status Dates Alek Shelton DO Primary Care Provider Active Kate Guzman ProviderActive Team Status: Active Member Role Status Dates Alek Shelton DO Primary Care Provider Active Team Status: Inactive Member Role Status Dates Alek Shelton DO Primary Care Provider Active Ese Villanueva [employer]ELD SCOUT-CAttending ProviderActive Team Status: Inactive Member Role Status Dates Alek Shelton DO Primary Care Provider Active Sta rt: August 16, 2023 End: August 16, 2023Ese Villanueva , FIELD SCOUT-CAttending ProviderActiveStart: August 16, 2023 End: August 16, 2023 Team Status: Inactive Member Role Status Dates Alek Shelton DO Primary Care Provider Active Sta rt: December 06, 2023 End: December 06, 2023MattKate Cabello ProviderActiveStart: December 06, 2023 End: December 06, 2023Team MemberRelationshipSpecialtyStart DateEnd Date Alek Shelton DO [address] [place] [address] PCP - GeneralInternal Medicine11/01/16Team MemberRelationshipSpecialtyStart Date End Date Alek Shelton DO [address] [place] [address] PCP - GeneralInternal Medicine11/01/16Team MemberRelationshipSpecialtyStart Date End Date Alek Shelton DO [address] [place] [address] PCP - GeneralInternal Medicine11/01/16Team MemberRelationshipSpecialtyStart Date End Date Alek Shelton DO [address] [place] [address] PCP - GeneralInternal Medicine11/01/16Team MemberRelationshipSpecialtyStart Date End Date Mariealexandria Alek Jose Antonio DO [address] [place] [address] PCP - GeneralInternal Medicine11/01/16Team MemberRelationshipSpecialtyStart Date End Date Violanoemialexandria Alek Jose Antonio DO [address] [place] [address] PCP - GeneralInternal Medicine11/01/16Team MemberRelationshipSpecialtyStart Date End Date Alek Shelton DO [address] [place] [address] PCP - GeneralInternal Medicine11/01/16Team MemberRelationshipSpecialtyStart Date End Date Alek Shelton DO [address] [place] [address] PCP - GeneralInternal Medicine11/01/16Team MemberRelationshipSpecialtyStart Date End Date Cat Alek Jose Antonio, DO [address] [place] [address] PCP - GeneralInternal Medicine11/01/16Team MemberRelationshipSpecialtyStart Date End Date Violanoah Alek BradyDO [address] [place] [address] [facility] Team Status: Inactive Member Role Status Dates Alek Shelton DO Primary Care Provider Active Sta rt: July 03, 2024 End: July 03, 2024Kate Soto ProviderActiveStart: July 03, 2024 End: July 03, 2024Team MemberRelationshipSpecialtyStart DateEnd Date Alek SheltonDO [address] [place] [address] [facility] - [facility]/16Team MemberRelationshipSpecialtyStart Date End Date Violanoah Alek DO Jose Antonio [address] [place] [address] PCP - [facility]11/01/16Team MemberRelationshipSpecialtyStart Date End Date Cat Alek BradyDO [address] [place] [address] PCP - [facility]11/01/16 Team Status: Inactive Member Role Status Dates Alek Shelton DO Primary Care Provider Active Sta rt: October 09, 2024 End: October 09, 2024Kate Soto ProviderActiveStart: October 09, 2024 End: October 09, 2024 Team Status: Inactive Member Role Status Dates Alek Shelton DO Primary Care Provider Active Sta rt: November 13, 2024 End: November 13, 2024Enrico Yuan ProviderActiveStart: November 13, 2024 End: November 13, 2024Team MemberRelationshipSpecialtyStart DateEnd Date Alek Shelton DO [address] [place] [address] PCP - GeneralInternal Medicine11/01/16 Team Status: Inactive Member Role Status Dates Alek Shelton DO Primary Care Provider Active Sta rt: January 15, 2025 End: January 15, 2025MattKate Cabello ProviderActiveStart: January 15, 2025 End: January 15, 2025Team MemberRelationshipSpecialtyStart DateEnd Date Alek Shelton DO [address] [place] [address] PCP - GeneralInternal Medicine11/01/16Team MemberRelationshipSpecialtyStart Date End Date Alek Shelton DO [address] [place] [address] PCP - GeneralInternal Medicine11/01/16Team MemberRelationshipSpecialtyStart Date End Date Alek Shelton DO [address] [place] [address] PCP - GeneralInternal Medicine11/01/16Team MemberRelationshipSpecialtyStart Date End Date Alek Shelton DO [address] [place] [address] PCP - GeneralInternal Medicine11/01/16Team MemberRelationshipSpecialtyStart Date End Date Alek Shelton DO [address] [place] [address] PCP - GeneralInternal Medicine11/01/16 Goals (unrecognized section and content) Goals may be documented in a n alternate sectionGoals may be documented in an alternate sectionGoals may be documented in an alternate sectionGoals may be documented in an alternate sectionGoals may be documented in an alternate sectionGoals may be documented in an alternate sectionNot on filedocumented as of this encounterNot on filedocumented as of this encounterNot on filedocumented as of this encounterNot on filedocumented as of this encounterNot on filedocumented as of this encounterNot on filedocumented as of this encounterNot on filedocumented as of this encounterNot on filedocumented as of this encounterNot on filedocumented as of this encounterNot on filedocumented as of this encounterGoals may be documented in an alternate sectionNot on filedocumented as of this encounterNot on filedocumented as of this encounterNot on filedocumented as of this encounterGoals may be documented in an alternate sectionNot on filedocumented as of this encounterNot on filedocumented as of this encounterGoals may be documented in an alternate sectionNot on filedocumented as of this encounterNot on filedocumented as of this encounterNot on filedocumented as of this encounterNot on filedocumented as of this encounterNot on filedocumented as of this encounterNot on filedocumented as of this encounterNot on filedocumented as of this encounter Reason for Visit (unrecogniz ed section and content) ReasonCommentsFollow-upEST PT 12 MO FU ECHO L/S HM LABS DONE AT [place] ReasonOnset DateCommentsEP ryizifxy56/13/2025ReasonCommentsFollow-upNP EP ABN HM SCHED W/ r/s w pt from june apptSpecialtyDiagnoses / ProceduresReferred By ContactReferred To ContactCardiology Diagnoses Abnormal Holter exam PVC (premature ventricular contraction) Yani Lucio MD [address] [place] [address] Phone: tel: fax: [facility] [address] [place] [address] Phone: tel: fax: Referral IDStatusReasonStart DateExpiration DateVisits RequestedVisits [id number] Review Specialty Services Required [id number]kbjrPlywuktukvmyWemahbYhjjwduxBfu RefillReasonOnset DateCommentsMed Rhyywd5106/08/2024ReasonCommentsHypertension HyperlipidemiaReasonCommentsPeripheral NeuropathyReasonCommentsFollow-upov 6 mo holter 10/08 @[facility] donaldo w ptReasonCommentsEdemaVaricose VeinsTesting doneExtremity PainSpecialtyDiagnoses / ProceduresReferred By ContactReferred To Contact Vascular Surgery Diagnoses Chronic venous insufficiency of lower extremity Alek Shelton, DO [address] [place] [address] Phone: tel: fax: Katheryn Powers, DO [address] [place] [address] Phone: tel: fax: Referral IDStatusReasonStart DateExpiration DateVisits RequestedVisits [id number] Specialty Services Required [id number]-onSmybxwnpmfvxSpscmgi doneChronic Venous InsufficiencyCarotid Artery DiseaseReasonCommentsSleep ApneaInspire consultSpecialtyDiagnoses / ProceduresReferred By ContactReferred To Contact Otolaryngology Diagnoses LINDA (obstructive sleep apnea) Katheryn Powers, DO [address] [facility] [address] [place] [address] Phone: tel:[phone] fax: Hernando Guerrero MD [address] [facility] [address] [place] [address] Phone: tel: fax: Referral IDStatusReasonStart DateExpiration DateVisits RequestedVisits [id number] Review Specialty Services Required 1ReasonOnset DateCommentsSleep Lab02/06/2025PSG FOR RECORDS PERTAINING TO PATIENTS WHO ARE OR HAVE BEEN ENROLLED IN A CHEMICAL DEPENDENCY/SUBSTANCEABUSE PROGRAM, SOME INFORMATION MAY BE OMITTED. This clinical summary was aggregated from multiple sources. Caution should be exercised in using it in the provision of clinical care. This summary normalizes information from multiple sources, and as a consequence, information in this document may materially change the coding, format and clinical context of patient data. In addition, data may be omitted in some cases. CLINICAL DECISIONS SHOULD BE BASED ON THE PRIMARY CLINICAL RECORDS. [facility] [employer] provides no warranty or guarantee of the accuracy or completeness of information in this document.
--- OUTSIDE RECORDS SUMMARY | 2025-02-19 21:01 | XMS_ITS | Clinical Summary ---
Author Organization [facility] Address [address] [place] [address] Care Team Providers Care Sole Stainer Name Role Phone Unavailable Primary Care Provider Unavailabl e Social History Tobacco UseTypesPacks/DayYears UsedDateSmoking Tobacco: Never AssessedSex and Gender InformationValueDate RecordedSex Assigned at BirthNot on fileLegal Sex Male06/30/2022 11:08 PM EDTGender IdentityNot on fileSexual OrientationNot on file Last Filed Vital Signs Vital SignReadingTime TakenCommentsBlood Uvoamujs753/8605/19/2020 12:00 PM EST Pulse--Temperature--Respiratory Rate--Oxygen Saturation--Inhaled Oxygen Concentration--Xyiefd589 kg (267 lb)05/19/2020 12:00 PM FSCMwhyzx693.9 cm (6') 05/19/2020 12:00 PM ESTBody Mass Index36.21005/19/2020 12:00 PM EST Plan of Treatment Not on file Insurance
--- OUTSIDE RECORDS SUMMARY | 2025-02-19 21:01 | XMS_ITS | Patient Health Record ---
Author Organization [facility] Address [address] [place] [address] Care Team Providers Care Merchandising Execution Manager Name Role Phone Darell Chapman DO Primary Care Provider UnavailCameron Du Unavailable [phone] Self, Referral Unavailable Unavailable Timi Hyaes Unavailable [phone] Reason For Referral No Information Medications Medication SIG (Take, Route, Frequency, Duration) Notes Start Date End Date Status celecoxib 200 mg 1 cap(s) orally every 12 hours for 30 days 5ActiveZetia 10 mgORALActiveArthritis PainORALActivelosartan 100 mg orallyActiveRemicade 700mgActiveomeprazole 20 mgORALActiveFluticasone Propionate 50 mcg/inhNASALActiveLipitor 20 mgORALActiveMagnesium 400mgActiveVitamin D 1.25 mg soft gelActiveZyrTECORALActiveZinc 25mgActivePlavix 75 mgORALActive Social History Tobacco Use: Social History Observation Description Date Details (start date - stop date) Former Smoker NA - NA Smoking History Question Answer Notes How long since you quit > 10 years Smoking StatusFormer SmokerAUDIT-C (Standard) Question Answer Notes Did you have a drink containing alcohol in the p ast year? Yes How often did you have six or more drinks on one occasion in the past year?Never (0 point)How many drinks did you have on a typical day when you were drinking in the past year?1 or 2 drinks (0 point)How often did you have a drink containing alcohol in the past year?Daily or almost daily (4 points) Problems Problem Type SNOMED Code ICD Code Onset Dates Problem Status W/U Status Risk Notes Problem History of musculosk eletal operation (314109416) Aftercare following joint replacement surgery (Z47.1) ActiveconfirmedProblemPain of left knee joint (finding) (985138808837299)Pain, joint, knee, left (M25.562)TkllcgxyifgbiyhYrgxjej969730159415665Oqfumvm osteoarthritis of left knee (M17.12)OkkdidpfejadoztBzjohve427441918Lzwzbntul primary osteoarthritis of knee (M17.0)ActiveconfirmedProblemArtificial knee joint present (459701824184)Presence of left artificial knee joint (Z96.652) ClqoxokzsdziueuHjycbzc093935693602Jamdfuty of artificial knee joint, bilateral (Z96.653)ActiveconfirmedProblemArtificial knee joint present (448276947271) Status post total right knee replacement (Z96.651)ActiveconfirmedProblem Artificial knee joint present (006853573367)Status post total left knee replacement (Z96.652)XusbbzfcqrffuzfTqtzxzv6558671705010Elmjtj post right knee replacement (Z96.651)ActiveconfirmedProblemOsteoarthritis of knee (799914573) Osteoarthritis of right knee (M17.11)ActiveconfirmedProblemOsteoarthritis of right knee joint (disorder) (550516569162106)Localized osteoarthritis of right knee (M17.11)Activeconfirmed Vital Signs Height 6 ft 1 in in 08/27/2024 Ozgsni076 lbs5BMI36.28008/27/2024 Encounters Encounter Location Date Provider Diagnosis [facility] [address] [place] [phone] 07/30/2024 Timi Freddy Aftercare following joint replacement surgery Z47.1 ; Presence of left artificial knee joint Z96.652 and Pain, joint, knee, left M25.562 [facility] [address] [place] [phone] 08/27/2024 Timi Freddy Aftercare following joint replacement surgery Z47.1 and Presence of left artificial knee joint Z96.652 [facility] [address] [place] [phone] 07/30/2024 Cameron Montes Presence of left artificial knee joint Z96.652 Assessments Encounter Date Diagnosis (ICD Code) Assessment Notes Treatment Notes Treatment Clinical Notes Section Notes 07/30/2024 Aftercare following joint replac ement surgery (ICD-10 - Z47.1) 07/30/2024Presence of left artificial knee joint (ICD-10 - Z96.652)07/30/2024 Presence of left artificial knee joint (ICD-10 - Z96.652)08/27/2024ftercare following joint replacement surgery (ICD-10 - Z47.1)08/27/2024Presence of left artificial knee joint (ICD-10 - Z96.652)07/30/2024Pain, joint, knee, left (ICD- 10 - M25.562)07/30/2024Other Left Knee Pain and Swelling - Post Total Knee Arthroplasty: - The patient presents with swelling in both knees, worse in the left, and intermittent pain, particularly when ascending stairs. A fall on ice 3 months ago has resulted in knee tightness. X-ray of the left knee shows a stable, well- placed prosthesis without signs of loosening, infection, or periprosthetic fracture. Physical examination reveals mild tenderness to the medial aspect of the left knee, no evidence of laxity, and no pain with varus or valgus stress tests. No joint effusion or warmthnoted. The differential diagnosis includes soft tissue irritation or low-grade infection. - Treatment Plan Details: a. Obtain blood work to rule out infection or inflammation. b. If blood work is negative, consider a trial of oral steroids. c. If no improvement with steroids, discuss potential 3-phase bone scan to check for increased cellular activity around the implant. d. Schedule follow-up appointment in 4 weeks to assess response to treatment and consider further diagnostic steps if necessary. 08/27/2024Other Status Post Left Total Knee Replacement - 4-Year Follow-up: - The patient is approximately 4 years post left total knee arthroplasty performed by Dr. Montes. Arecent fall on snow and ice earlier this year prompted evaluation. X-rays showed stable placement of the total knee prosthesis. Recent labs (CBC, CRP, and ESR) from July 30, 2024, at [facility] were reassuring, with normal white blood cell count, ESR of 16, and CRP less than 0.5, indicatingno signs of active infection or significant inflammation. - The patient reports periodic, non-constant knee pain that does not limit activities. Physical examination reveals a well-healed incision, range of motion from 0 to 120 degrees, no warmth, no joint effusion, and normal medial and lateral balance. - Treatment Plan Details: a. Trial of Aleve or diclofenac cream/Voltaren Gel for pain relief. b. Prescribe Celebrex: 30 pills, one pill twice a day as needed. Discussed short-term use due to cardiovascular history. c. Continue monitoring for any changes in symptoms or function. Right Thigh Phlebitis: - The patient reports an area of redness on the right thigh. Examination reveals a 4 cm erythematous area overlying varicose veins, slightly warm and firm. Clinical presentation is consistent with phlebitis rather than cellulitis, given the location over varicose veins and absence of signs of infection. - Treatment Plan Details: a. Apply warm, moist compresses to the affected area. b. Monitor for any signs of infection or progression. c. Follow up if symptoms worsen or fail to improve. Plan Of Treatment Pending Test Test Name Order Date JAM-KNEE LEFT 2v - [id number] 07/30/2024 LAB OTHER 07/30/2024 Insurance Providers Payer Name Payer Address Payer Phone Subscriber Number Group Number Insured Name Patient Relationship to Insured Coverage Start Date Coverage End [place] [address] [place] [address] [id number] Sameera RINCON - [facility] the [facility] [address] [place], [place] [id number], JAMESSelf - patient is the insured Medications Administered Medication Instructions Date of Administration Dosage Notes SYNVISC ONE mLSYNVISC ONE pZyjNekulclv53/29/20192 mLxxEuflexxa iOwdSoefqjdk53/07/20192 xPuxFovesyon82/14/20192 mLxxEuflexxa jVciPdnvlcoy88/21/20192 mL Medical (General) History Medical History History ICD Code Heart problems: Yes Blood Clots: YesHigh Blood Pressure: YesSurgical History Surgery Date(Month/Year) vein stripping 1984 vasectomy 1984 left total knee arthroplasty 08/2020 Right total knee arthroplasty 01/2021 CORONARY ARTERY BYPASS GRAFTING 12/1997
--- OUTSIDE RECORDS SUMMARY | 2025-02-19 21:01 | XMS_ITS | Clinical Summary ---
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 Every 16 weeks -700 mgActive ACETAMINOPHEN (TYLENOL ARTHRITIS ORAL) Take 1,300 mg by mouth in the morning.Active omeprazole (PriLOSEC) 20 mg capsule Take 1 capsule (20 mg total) by mouth in the morning.Active cetirizine (ZyrTEC) 10 mg tablet Take 1 tablet (10 mg total) by mouth in the morning.Active triamcinolone (KENALOG) 0.1 % cream 02/11/2022ctive magnesium oxide (MAGOX) 400 mg tablet Indications:Arteriosclerosis of arterial coronary artery bypass graft,Stable angina,Essential hypertension,Coronary arteriosclerosis,Mixed hyperlipidemia, BradycardiaTake 1 tablet (400 mg total) by mouth in the morning. 90 tablet ctive fluticasone propionate (FLONASE) 50 mcg/actuation nasal spray Indications:Seasonal allergic rhinitis, unspecified triggerAdminister 1 spray into each nostril as needed for rhinitis or allergies. 16 g ctive cyanocobalamin (vitamin B-12) 1000 MCG tablet Take 1 tablet (1,000 mcg total) by mouth in the morning.Active zinc gluconate 50 mg tablet Take 0.5 tablets (25 mg total) by mouth in the morning.Active nitroglycerin (NITROSTAT) 0.4 MG SL tablet Indications:Bradycardia,Essential hypertension,Mixed hyperlipidemia, Arteriosclerosis of arterial coronary artery bypass graft,Stable angina,Coronary arteriosclerosisPlace 1 tablet (0.4 mg total) under the tongue every 5 (five) minutes as needed for chest pain. 25 tablet 4Active atorvastatin (LIPITOR) 20 mg tablet Indications:Bradycardia,Essential hypertension,Mixed hyperlipidemia, Arteriosclerosis of arterial coronary artery bypass graft,Coronary arteriosclerosisTake 1 tablet (20 mg total) by mouth once daily at bedtime. 90 tablet 5Active clopidogreL (PLAVIX) 75 mg tablet Indications:Bradycardia,Essential hypertension,Mixed hyperlipidemia, Arteriosclerosis of arterial coronary artery bypass graft,Coronary arteriosclerosisTake 1 tablet (75 mg total) by mouth in the morning. 90 tablet 5Active ezetimibe (ZETIA) 10 mg tablet Indications:Bradycardia,Essential hypertension,Mixed hyperlipidemia, Arteriosclerosis of arterial coronary artery bypass graft,Coronary arteriosclerosisTake 1 tablet (10 mg total) by mouth in the morning. 90 tablet 5Active losartan (COZAAR) 100 mg tablet Indications:Bradycardia,Essential hypertension,Mixed hyperlipidemia, Arteriosclerosis of arterial coronary artery bypass graft,Coronary arteriosclerosisTake 1 tablet (100 mg total) by mouth in the morning. 90 tablet 5Active tiZANidine (ZANAFLEX) 4 mg tablet 5Active celecoxib (CeleBREX) 200 mg capsule Take 1 capsule (200 mg total) by mouth in the morning.5Active pregabalin (LYRICA) 50 mg capsule Indications:Peripheral polyneuropathyTake 1 capsule (50 mg total) by mouth once daily at bedtime. 30 capsule 5Active famotidine (PEPCID) 40 mg tablet Indications:Globus sensation,Laryngopharyngeal reflux (LPR)Take 1 tablet (40 mg total) by mouth in the morning and 1 tablet (40 mg total) before bedtime. 60 tablet 5Active fluticasone propionate (FLONASE) 50 mcg/actuation nasal spray Indications:Nasal congestionAdminister 2 sprays into each nostril in the morning. 16 g 1115Active azelastine (ASTELIN) 137 mcg (0.1 %) nasal spray Indications:Nasal congestionAdminister 1 spray into each nostril in the morning and 1 spray before bedtime. Use in each nostrilas directed. 30 mL 1215Active Active Problems ProblemNoted DateDiagnosed DatePVC (premature ventricular contraction)04/16/2024 Osteoarthritis of knee2Artificial knee joint dsxynxw91/01/2022Chronic venous insufficiency of lower oxqqcpazb54/28/2022soriasis with arthropathy 6176Muiqxla84/28/2022Impaired fasting pwfzltd9603/15/2022therosclerotic heart disease of [place] coronary artery with other forms of angina pectoris 03/15/2022Vitamin B12 deficiency anvbscocps03/29/2021hlebitis of superficial veins of lower jekauulvv57/21/2021Obstructive sleep apnea mzptejrp20/05/2017 Stable fltmoa9011/05/2016Essential ceocjcxieoyn35/21/2017Arteriosclerosis of arterial coronary artery bypass graft02/24/20061069Sigcpsmkfvxcht58/13/2006 Resolved Problems ProblemNoted DateDiagnosed DateResolved DatePeripheral vascular disease Encounters DateTypeDepartmentCare UxdzZsnoicpxwad70/04/2825Rezmxb17/22/2025Telephone [facility] Division of [facility] - Sleep Disorders [address] [place] [address] [address] [place] [address] Danna Guerrero MD Sleep Lab (PSG)02/06/2025Telephone [facility] - ENT [address] [place] [address], [address] [place] [address] Danna Guerrero MD 02/04/2025 12:45 PM EDTOffice Visit [facility] - ENT [address] [place] [address], [address] [place] [address] Danna Guerrero MD Obstructive sleep apnea syndrome (Primary Dx); Intolerance of continuous positive airway pressure (CPAP) ventilation; Snoring; Chronic fatigue; BMI 38.0-38.9,adult; Obesity (BMI 30-39.9); Drainage from nose; Globus sensation; Laryngopharyngeal reflux (LPR); Nasal /20/2025Results Follow-Up [facility] - ENT [address] [place] [address], [address] [place] [phone] Darell Chapman, PSG Diagnostic < 12 Years02/04/2025Orders Only [facility] - ENT [address] [place] [address], [address] [place] [address] Darell Chapman DO 02/02/20259073Dkxtry93/16/2025Telephone [facility] - ENT [address] [place] [address], [address] [place] [phone] No Pcp, No Pcp 01/31/2025Orders Only [facility] - [facility] Medicine [address] [place] [address] Darell Chapman DO 01/24/2025Telephone [facility] Vascular [address] [place] [address] Baljit Anglin CMA 01/23/2025Patient Outreach [facility] [address] [place] [address] Darell Chapman DO Vitamin B12 deficiency neuropathy (Primary Dx); Atherosclerotic heart disease of [place] coronary artery with other forms of angina aifiikne43/29/2025 10:15 AM EDTOffice Visit [facility] [address] [place] [address] Katheryn Gill DO Chronic venous insufficiency of lower extremity (Primary Dx); Eczvepdkam64/28/6063Oxqfbr13/27/7649Axaqld82/21/2025 8:21 AM EDT - 12/06/2024 11:59 PM EDTHospital Encounter [facility] - Vascular [address] [place] [address] Katheryn Gill, Mixed hyperlipidemia; Essential hypertension; Claudication Discharge Disposition: Home12/06/2024 8:21 AM EDT - 12/06/2024 11:59 PM EDT Hospital Encounter [facility] - Vascular [address] [place] [phone] Katheryn Gill, Bilateral carotid artery stenosis Discharge Disposition: Home12/06/2024 8:21 AM EDT - 12/06/2024 11:59 PM EDT Hospital Encounter [facility] - Vascular [address] [facility] [phone] Katheryn Gill, Mixed hyperlipidemia; Essential hypertension; Claudication Discharge Disposition: Home12/06/2024 7:32 AM EDT - 12/06/2024 8:20 AM EDT Hospital Encounter [facility] - CT Imaging [address] [facility] [place] [phone] Katheryn Gill, Bilateral leg edema Discharge Disposition: Home12/04/20247231Bnjhcn90/13/2025Results Follow-Up [facility] Vascular [address] [facility] [address] [place] [address] Darell Chapman DO EMG With NCV11/28/2024Orders Only [facility] Vascular [address] [facility] [address] [place] [address] Darell Chapman DO 11/26/2024 2:30 PM EDTOffice Visit [facility] [address] [place] [address] Katheryn Gill, Mixed hyperlipidemia (Primary Dx); Chronic venous insufficiency of lower extremity; Essential hypertension; 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[facility]); Bilateral leg edema; Bilateral carotid artery stenosis; Claudication; LINDA (obstructive sleep apnea)11/24/20245071Sccask93/04/2025Orders Only [facility] [address] [place] [address] Ref Prov, Not In System from Last 3 Months Immunizations ImmunizationAdministration DatesNext DueInfluenza, Im Trivalent Preservative 01/04/2015Influenza, Injectable, Mdck, Preservative Free, Quad03/21/2023 Influenza, Injectable, Kbvezksgaojw13/02/2020,01/16/2018Influenza, Recombinant, Quadrivalent, Injectable, Boletcy3603/29/2022Influenza, Ypuacbetrax87/05/2023, 1Pneumococcal Conjugate 13-Qdwsea5312/19/2014Pneumococcal Polysaccharide 12/13/2007Tdap06/22/2022,04/30/20146441Cujbbzp03/29/2008 Family History Medical HistoryRelationNameCommentsCancerBrother 1LeukemiaHeart diseaseBrother 2 CancerFatherLungHeart diseaseFatherCardiomyopathyMotherHeart diseaseMother RelationNameStatusCommentsBrother 1Brother 2FatherDeceasedMotherDeceased Social History Tobacco UseTypesPacks/DayYears UsedDateSmoking Tobacco: RzjwsoVobxcfaydh761 Smokeless Tobacco: Never Tobacco Cessation:Counseling Given: Not Answered Alcohol UseStandard Drinks/WeekCommentsYes2 (1 standard drink = 0.6 oz pure alcohol)beerSocial Connection and Isolation PanelAnswerDate RecordedIn a typical week, how many times do you talk on the phone with family, friends, or neighbors?More than three times a week03/17/2022How often do you get together with friends or relatives?More than three times a week03/17/2022How often do you attend sabianist or mosque services?More than 4 times per year2Do you belong to any clubs or organizations such as sabianist groups, unions, fraternal or athletic groups, or school groups?Yes03/17/2022How often do you attend meetings of the clubs or organizations you belong to?More than 4 times per year03/17/2022 Are you , , , , never , or living with a partner?Kxjcbxe81/30/2022AUDIT-CAnswerDate RecordedQ1: How often do you have a drink containing alcohol?4 or more times a week03/17/2022Q2: How many drinks containing alcohol do you have on a typical day when you are drinking?3 or 4 03/17/2022Q3: How often do you have six or more drinks on one occasion?Never 03/17/2022verall Financial Resource Strain (CARDIA)AnswerDate RecordedHow hard is it for you to pay for the very basics like food, housing, medical care, and heating?Not hard at all03/17/2022HQ-2AnswerDate RecordedTotal Badsz090 [facility] [place] of Occupational Health - Occupational Stress Questionnaire AnswerDate RecordedDo you feel stress - tense, restless, nervous, or anxious, or unable to sleep at night because yourmind is troubled all the time - these days? Patient idhmknbm64/30/2022Exercise Vital SignAnswerDate RecordedOn average, how many days per week do you engage in moderate to strenuous exercise (like a brisk walk)?5 days03/17/2022n average, how many minutes do you engage in exercise at this level?20 min03/17/2022RAPARE - TransportationAnswerDate RecordedIn the past 12 months, has lack of transportation kept you from medical appointments or from getting medications?No03/17/2022In the past 12 months, has lack of transportation kept you from meetings, work, or from getting things needed for daily living?No03/17/2022hildcareAnswerDate RecordedDo problems getting child welfare caseworker make it difficult for you to work [...] a purpose and direction in my life.Strongly Agree03/17/2022 EducationAnswerDate RecordedWhat is the highest level of school you have completed or the highest degree you have received?Associate degree: occupational, technical, or vocational elsmata1803/17/2022ex and Gender InformationValueDate RecordedSex Assigned at BirthNot on fileLegal SexMale 11/21/2014 11:54 AM EDTGender IdentityNot on fileSexual OrientationNot on file Last Filed Vital Signs Vital SignReadingTime TakenCommentsBlood Vigixywb966/6909 10:38 AM EDT Ajkbn5611 10:38 AM ZUAEhxwharoubc49.5 ??C (97.7 ??F)09/13/2024 1:55 PM EDTRespiratory Ukkv7360 1:13 PM EDTOxygen Vlpqbeouaa93%10/24/2024 8:38 AM EDTInhaled Oxygen Concentration--Ropiix049.3 kg (285 lb)02/04/2025 12:14 PM EIZKequml013.9 cm (6')02/04/2025 12:14 PM EDTBody Mass Index38.6502/04/2025 12:14 PM EDT Plan of Treatment DateTypeDepartmentCare Team (Latest Contact Info)Jnjwoozdqwc76/06/2025 8:00 AM ESTOffice Visit [facility] [address] [place] [address] Dameon Eason MD [address] [place], [place] [phone] Sofía Wong MD [address] [place] [address] 03/18/2025 11:30 AM ESTOffice Visit [facility] Surgery [address] [place] [address] Katheryn Gill DO [address] [facility] [address] [place] [address] 03/20/2025 12:30 PM ESTHospital Encounter [facility] -Surgery [address] [place] [address] Katheryn Gill, DO [address] [facility] [address] [place] [address] 03/20/2025 12:30 PM EST - 03/20/2025 2:30 PM ESTSurgery [facility] -[facility] [address] [place] [address] Katheryn Gill, DO [address] [facility] [address] [place] [address] LIGATION VEIN LOWER EXTREMITY OPEN GROIN VARICOSITIES (DIRECTLY OFF THE FEMORAL VEIN WITH NO STRAIGHT SEGMENT)04/01/2025 10:30 AM ESTOffice Visit [facility] [address] [place] [address] Katheryn Gill, DO [address] [facility] [address] [place] [address] NamePriorityAssociated DiagnosesDate/TimeLIGATION VEIN LOWER EXTREMITY Chronic venous insufficiency of lower extremity 03/20/2025 12:30 PM ESTPHLEBECTOMY Chronic venous insufficiency of lower extremity 03/20/2025 12:30 PM ESTHealth MaintenanceDue DateLast DoneCommentsAdult BMI Follow Up Plan11/29/19735733Xsjqdrvvidb35/14/2001Zoster (Shingles) Vaccine (1 of 2) 11/29/2005RSV ( or age 60+ yrs) (1 - Risk 60-74 years 1-dose series) 2015Medicare Annual Wellness VisitOVID-19 Vaccine ( - season), 12/01/2020Influenza Oafjneh5312/17/2024 03/22/2023, 03/21/2023, 03/29/2022, Additional history existsStatin Use: Rwvzgisnmasgyw45/24/202602/Depression Vuzcvmchb94Fall Risk Mjgekukcr91/29/dult BMI Uqsmympam44Tobacco Borfjlssx66DTaP,Tdap and Td Vaccines (3 - Td or Tdap) , 04/30/2014bdominal Aortic Aneurysm (AAA) ScreenCompleted 06/29/2022 Medical Devices Not on file Procedures Procedure NamePriorityDate/TimeAssociated DiagnosisCommentsVASC ARTERIAL DOPPLER LOWER LIMITED SINGLE (DEBBIE)Gdwkhqo1612/06/2024 9:42 AM EDT Mixed hyperlipidemia Essential hypertension Claudication VASC CAROTID DUPLEX QBOCVWQRPDpktswi01/21/2025 9:42 AM EDT Bilateral carotid artery stenosis VASC ARTERIAL DUPLEX LOWER EZLLSTBPUVrmpokc00/21/2025 9:42 AM EDT Mixed hyperlipidemia Essential hypertension Claudication CT CTV ABD AND LZAEDPPmazdyk43/21/2025 8:22 AM EDT Bilateral leg edema EMG WITH IDFMspchbo58/13/2025 7:56 AM EDT CREATININE, MLHGQNcebikm18/11/2025 4:19 PM EDT Bilateral leg edema US, RETROPERITNL ABD, XFDAxjoxwj62/14/2023 7:52 AM EDTfrom Last 3 Months or Most Recently Relevant to Health Maintenance Results * Vas art doppler lwr limited single (12/06/2024 9:42 AM EDT)Anatomical Region LateralityModalityVascularN/AUltrasoundSpecimen (Source)Anatomical Location / LateralityCollection Method / VolumeCollection TimeReceived Time12/06/2024 10:10 AM EDT Narrative 12/06/2024 4:35 PM EDT Right: Essentially normal PVR waveform contour at the ankle. PT DEBBIE is 0.94; DP DEBBIE is 0.95. TBI is 0.79. Multiphasic with diastolic flow reversal PT and DP CW Doppler waveforms. Left: Essentially normal PVR waveform contour at the ankle. PT DEBBIE is 0.91; DP DEBBIE is 0.93. TBI is 0.73. Multiphasic with diastolic flow reversal PT and DP CW Doppler waveforms. Conclusions: BILATERAL: ??Normal lower extremity DEBBIE examination at rest. Procedure Note Ken Barrett MD - 12/06/2024 Right: Essentially normal PVR waveform contour at the ankle. PT DEBBIE is0.94; DP DEBBIE is 0.95. TBI is 0.79. Multiphasic with diastolic flowreversal PT and DP CW Doppler waveforms. Left: Essentially normal PVR waveform contour at the ankle. PT DEBBIE is0.91; DP DEBBIE is 0.93. TBI is 0.73. Multiphasic with diastolic flowreversal PT and DP CW Doppler waveforms. Conclusions: BILATERAL: Normal lower extremity DEBBIE examination at rest. Authorizing ProviderResult TypeResult StatusKatheryn Gill DOCV VASCULAR ORDERABLESFinal Result * Vas carotid duplex bilateral (12/06/2024 9:42 AM EDT)Anatomical Region LateralityModalityVascularBilateralUltrasoundSpecimen (Source)Anatomical Location / LateralityCollection Method / VolumeCollection TimeReceived Time 12/06/2024 10:06 AM EDT Narrative 12/06/2024 4:34 PM EDT Right: Plaque with no significant ICA spectral Doppler or color flow disturbances; ICA 67/26 cm/sec. Antegrade vertebral artery flow. Left: Plaque with no significant ICA spectral Doppler or color flow disturbances; ICA 70/22 cm/sec.Antegrade vertebral artery flow. Conclusions: BILATERAL: Plaque without significant stenosis (<50%) of the internal carotid artery. ??Antegrade vertebral artery flow. Procedure Note Ken Barrett MD - 12/06/2024 Right: Plaque with no significant ICA spectral Doppler or color flow disturbances; ICA 67/26 cm/sec. Antegrade vertebral artery flow. Left: Plaque with no significant ICA spectral Doppler or color flowdisturbances; ICA 70/22 cm/sec. Antegrade vertebral artery flow. Conclusions: BILATERAL: Plaque without significant stenosis (<50%) of the internal carotid artery. Antegrade vertebral artery flow. Authorizing ProviderResult TypeResult StatusKatheryn Gill DOCV VASCULAR ORDERABLESFinal Result * Vas art duplex lwr bilateral (12/06/2024 9:42 AM EDT)Anatomical Region LateralityModalityVascularBilateralUltrasoundSpecimen (Source)Anatomical Location / LateralityCollection Method / VolumeCollection TimeReceived Time 12/06/2024 10:21 AM EDT Narrative 12/06/2024 4:34 PM EDT Right: Plaque and elevated proximal deep femoral [...] without significant color flow disturbance. Conclusions: RIGHT: ??Hemodynamically significant stenosis of the deep ??femoral artery. ??LEFT: ??Hemodynamically significant stenosis of the superficial femoral artery. ? Procedure Note Ken Barrett MD - 12/06/2024 Right: Plaque and elevated proximal deep femoral artery spectral Doppler waveforms with color flow disturbance and PSV velocity ratio of 2.6.Plaque and spectral waveforms with diastolic flow reversal noted in theexternal iliac, common femoral, superficial femoral, popliteal, peroneal, posterior and anterior tibialartery without significant color flow disturbance. Left: Plaque and elevated distal superficial femoral artery spectralDoppler waveforms with color flow disturbance and PSV velocity ratio of4.0. Plaque and spectral waveforms with diastolic flow reversal noted inthe external iliac, common femoral, deep femoral, proximal and mid superficial femoral, popliteal, peroneal,posterior and anterior tibial artery without significant color flowdisturbance. Conclusions: RIGHT: Hemodynamically significant stenosis of the deepfemoral artery. LEFT: Hemodynamically significant stenosis of thesuperficial femoral artery. Authorizing ProviderResult TypeResult StatusKatheryn Gill DOCV VASCULAR ORDERABLESFinal Result * CT venogram abdomen and pelvis (12/06/2024 8:22 AM EDT)Anatomical Region LateralityModalityBody, Abdomen, Vascular, Body CoveraN/AComputed Tomography Specimen (Source)Anatomical Location / LateralityCollection Method / Volume Collection TimeReceived Time12/10/2024 1:40 PM EDT Narrative 12/10/2024 2:[address] CTV ABD AND PELVIS CLINICAL HISTORY: Bilateral lower extremity edema COMPARISON: None. TECHNIQUE: * ??CT abdomen and pelvis was performed with the administration of intravenous contrast. Coronal and sagittal reformatted images were generated and reviewed. Automated exposure control was utilized. * ??All CT scans at this facility use dose modulation, iterative reconstruction, and/or weight based dosing when appropriate to reduce radiation dose to as low as reasonably achievable. FINDINGS: Visualized portions of lung parenchyma appear unremarkable. ??No pleural or pericardial effusions. No intra-abdominal free [...] external iliac lymph node. Nonaneurysmal abdominal aorta. ??Partially imaged venous varicosities communicating with the femoral veins bilaterally. No evidence of central venous compression or venous thrombosis. Multilevel degenerative changes of the visualized spine. No acute osseous abnormality. IMPRESSION: * ??Partially imaged venous varicosities communicating with femoral veins bilaterally. No evidence of central venous compression/occlusion or thrombosis. * ??Uncomplicated cholelithiasis. Approved by Resident: Richard Mccurdy MD ??on 12/10/2024 1:40 PM Familia Buck DO have personally reviewed the image(s) and agree with and/or edited the report Finalized by Familia Kerr DO on 12/10/2024 2:35 PM Procedure Note Familia Kerr DO - 12/10/2024 CT CTV ABD AND PELVIS CLINICAL HISTORY: Bilateral lower extremity edema COMPARISON: None. TECHNIQUE: * CT abdomen and pelvis was performed with the administration ofintravenous contrast. Coronal and sagittal reformatted images weregenerated and reviewed. Automated exposure control was utilized. * All CT scans at this facility use dose modulation, iterativereconstruction, and/or weight based dosing when appropriate to reduceradiation dose to as low as reasonably achievable. [...] bowel, terminal ileum, large bowel, and appendix appearunremarkable. Mildly prominent 7 mm short axis lymph node adjacent to the sigmoid colonand urinary bladder dome. Subcentimeter external iliac lymph node. Nonaneurysmal abdominal aorta. Partially imaged venous varicositiescommunicating with the femoral veins bilaterally. No evidence of centralvenous compression or venous thrombosis. Multilevel degenerative changes of the visualized spine. No acute osseous abnormality. IMPRESSION: * Partially imaged venous varicosities communicating with femoral veins bilaterally. No evidence of central venous compression/occlusion orthrombosis. * Uncomplicated cholelithiasis. Approved by Resident: Richard Mccurdy MD on 12/10/2024 1:40PM IFamilia DO have personally reviewed the image(s) and agree withand/or edited the report Finalized by Familia Kerr DO on 12/10/2024 2:35 PM Authorizing ProviderResult TypeResult StatusKatheryn Gill DOIMG CT ORDERABLES Final Result * EMG With NCV (11/28/2024 7:56 AM EDT) Narrative Authorizing ProviderResult TypeResult StatusDarell Chapman DONEUROLOGY ORDERABLES Final ResultPerforming OrganizationAddressCity/State/ZIP CodePhone Number MANUALLY TRANSCRIBED RESULTS * Creatinine includes GFR, serum (11/26/2024 4:19 PM EDT)ComponentValueRef RangeTest MethodAnalysis TimePerformed AtPathologist SignatureCREATININE1.16 0.60 - 1.30 mg/dL11/26/2024 11:04 PM [facility] Comment:METHOD TRACEABLE TO IDMS STANDARDEGFR Non-Race Ovznljrfw46>=60 ml/min/1.73sq.m011/26/2024 11:04 PM [facility] Comment: Reported eGFR is based on the CKD-EPI 2020 equation that does not use a race coefficient. Specimen (Source)Anatomical Location / LateralityCollection Method / Volume Collection TimeReceived TimeBloodVenous blood / UnknownVenipuncture / Unknown 11/26/2024 4:19 PM EDT11/26/2024 4:21 PM EDT Narrative Authorizing ProviderResult TypeResult StatusAniafrancheska Alfaro Bridget GODWIN BLOOD ORDERABLES Final ResultPerforming OrganizationAddressty/State/ZIP CodePhone Number [facility] [address] [place] [address], * , [employer] SystemsST. [facility] [employer], [employer] (06/29/2022 7:52 AM EDT) Narrative Authorizing ProviderResult TypeResult StatusNot In System Ref Prov PROCEDURE/MINOR SURGICAL ORDERABLESFinal ResultPerforming OrganizationAddress City/State/ZIP CodePhone Number MANUALLY TRANSCRIBED RESULTS from Last 3 Months or Most Recently Relevant to Health Maintenance Insurance Care Teams Team MemberRelationshipSpecialtyStart DateEnd Date Darell Chapman DO [address] [place] [address] PCP - GeneralInternal Medicine11/01/16
--- OUTSIDE RECORDS SUMMARY | 2025-02-19 21:01 | XMS_ITS | Encounter Summary ---
Author Organization [employer] [facility] tem Address [id number] [address] [place] [address] Care Team Providers Care Antique Furniture Reproducer Name Role Phone Ari Darell Jose Antonio GREGORY Primary Care Provider [phone] Encounter Details DateTypeDepartmentCare Team (Latest Contact Info)Ydcnvbmrqxa17/04/2025Travel Social History Tobacco UseTypesPacks/DayYears UsedDateSmoking Tobacco: TfnbmgPvpabjxthc529 Smokeless Tobacco: NeverAlcohol UseStandard Drinks/WeekCommentsYes2 (1 standard drink = 0.6 oz pure alcohol)beerSocial Connection and Isolation PanelAnswerDate RecordedIn a typical week, how many times do you talk on the phone with family, friends, or neighbors?More than three times a week03/17/2022How often do you get together with friends or relatives?More than three times a week03/17/2022How often do you attend mu-ism or sikh services?More than 4 times per year 2Do you belong to any clubs or organizations such as mu-ism groups, unions, fraternal or athletic groups, or school groups?Yes03/17/2022How often do you attend meetings of the clubs or organizations you belong to?More than 4 times per year03/17/2022re you , , , , never , or living with a partner?Szkqwid6703/17/2022UDIT-CAnswerDate RecordedQ1: How often do you have a [...] care, and heating?Not hard at all03/17/2022HQ-2AnswerDate RecordedTotal Mkmlv707Finjordan [facility] [place] of Occupational Health - Occupational Stress QuestionnaireAnswerDate RecordedDo you feel stress - tense, restless, nervous, or anxious, or unable to sleep at night because yourmind is troubled all the time - these days?Patient hjtbeiaa31/30/2022Exercise Vital Sign AnswerDate RecordedOn average, how many [...] for daily living?No03/17/2022 ChildcareAnswerDate RecordedDo problems getting child care associate make it difficult for you to work [...] have received?Associate degree: occupational, technical, or vocational wndatjm6103/17/2022ex and Gender InformationValueDate RecordedSex Assigned at BirthNot on fileLegal PctVpfq3211/21/2014 11:54 AM EDTGender Identity Not on fileSexual OrientationNot on filedocumented as of this encounter Plan of Treatment DateTypeDepartmentCare Team (Latest Contact Info)Cdswjnoekca88/06/2025 8:00 AM ESTOffice Visit [facility] [address] [place] [address] Dameon Eason MD [address] [place] [address] Sofía Wong MD [address] [place] [address] 03/18/2025 11:30 AM ESTOffice Visit [facility] [address] [place] [address] [address] [place] [address] Katheryn Gill, DO [address] [place] [address] 03/20/2025 12:30 PM ESTHospital [facility]counter [facility] [address] [place] [address] [place] [address] Katheryn Gill, DO [address] [place] [address] 03/20/2025 12:30 PM EST - 03/20/2025 2:30 PM ESTSurgery [facility] [address] [place] [address] Katheryn Gill, DO [address] [place] [address] LIGATION VEIN LOWER EXTREMITY OPEN GROIN VARICOSITIES (DIRECTLY OFF THE FEMORAL VEIN WITH NO STRAIGHT SEGMENT)04/01/2025 10:30 AM ESTOffice Visit [facility] [address] [place] [address] [address] [place] [address] Katheryn Gill DO [address] [facility] [address] [place] [address] NamePriorityAssociated DiagnosesDate/TimeLIGATION VEIN LOWER EXTREMITY Chronic venous [...] DateEnd Date Darell Chapman DO [address] [place] [address] PCP - GeneralInternal Medicine11/01/16documented as of this encounter
--- OUTSIDE RECORDS SUMMARY | 2025-02-19 21:01 | XMS_ITS | Encounter Summary ---
Author Organization [facility] tem Address [id number] [address] [place] [address] Care Team Providers Care Automotive General Sales Manager Name Role Phone Darell Chapman Primary Care Provider [phone] Encounter Details DateTypeDepartmentCare Team (Latest Contact Info)Rpjjcgmkgsn25/22/2025Telephone [facility] - ENT [address] [address] [place] [address] Danna Guerrero MD [address] [place] [address] Social History Tobacco UseTypesPacks/DayYears UsedDateSmoking Tobacco: DbazpoVlfiwgxzfx269 Smokeless Tobacco: NeverAlcohol UseStandard Drinks/WeekCommentsYes2 (1 standard drink = 0.6 oz pure alcohol)beerSocial Connection and Isolation PanelAnswerDate RecordedIn a typical week, how many times do you talk on the phone with family, friends, or neighbors?More than three times a week03/17/2022How often do you get together with friends or relatives?More than three times a week03/17/2022How often do you attend mu-ism or latter-day services?More than 4 times per year 2Do you belong to any clubs or organizations such as mu-ism groups, unions, fraternal or athletic groups, or school groups?Yes03/17/2022How often do you attend meetings of the clubs or organizations you belong to?More than 4 times per year2Are you , , , , never , or living with a partner?Dziftjv1603/17/2022UDIT-CAnswerDate RecordedQ1: How often do you have a [...] care, and heating?Not hard at all03/17/2022HQ-2AnswerDate RecordedTotal Etgur420Finmckay-[facility] [place] of Occupational Health - Occupational Stress QuestionnaireAnswerDate RecordedDo you feel stress - tense, restless, nervous, or anxious, or unable to sleep at night because yourmind is troubled all the time - these days?Patient /30/2022Exercise Vital Sign AnswerDate RecordedOn average, how many [...] for daily living?No03/17/2022 ChildcareAnswerDate RecordedDo problems getting children's ministries director make it difficult for you to work [...] have received?Associate degree: occupational, technical, or vocational cjlflli7303/17/2022ex and Gender InformationValueDate RecordedSex Assigned at BirthNot on fileLegal CvrIltb5311/21/2014 11:54 AM EDTGender Identity Not on fileSexual OrientationNot on filedocumented as of this encounter Miscellaneous Notes * Telephone Encounter - Dari Wadsworth - 02/06/2025 9:31 AM EDT Spouse called 02/06. They need sleep order, office notes, and demographics [facility] [phone], and [facility] phone # is [phone]. * Telephone Encounter - PINO Wright - 02/06/2025 9:31 AM EDT Faxed to Shannen at [facility] to [phone]. documented in this encounter Plan of Treatment DateTypeDepartmentCare Team (Latest Contact Info)Spcypqfdhro01/06/2025 8:00 AM ESTOffice Visit [facility] [address] [place] [address] Dameon Eason MD [address] [place] [address] Sofía Wong MD [address] [place] [address] 03/18/2025 11:30 AM ESTOffice Visit [facility] [address] [place] [address] [address] [place] [address] Katheryn Gill, DO [address] [facility] [address] [place] [address] 03/20/2025 12:30 PM ESTHospital Encounter [facility] [address] [place] [address] [place] [address] Katheryn Gill, DO [address] [facility] [address] [place] [address] 03/20/2025 12:30 PM EST - 03/20/2025 2:30 PM ESTSurgery [facility] [address] [place] [address] [place] [address] Katheryn Gill, DO [address] [facility] [address] [place] [address] LIGATION VEIN LOWER EXTREMITY OPEN GROIN VARICOSITIES (DIRECTLY OFF THE FEMORAL VEIN WITH NO STRAIGHT SEGMENT)04/01/2025 10:30 AM ESTOffice Visit [facility] [address] [place] [address] [address] [place] [address] Katheryn Gill, DO [address] [facility] [address] [place] [address] NamePriorityAssociated DiagnosesDate/TimeLIGATION VEIN LOWER EXTREMITY Chronic venous [...] DateEnd Date Darell Chapman DO [address] [place] [address] PCP - GeneralInternal Medicine11/01/16documented as of this encounter
== END 2025-02-19 20:57 | disposition home or self-care (01) ==
DX: G47.33 Obstructive sleep apnea (adult) (pediatric) (principal)
CPT/HCPCS: 95810

== ENCOUNTER 2025-03-18 19:52 | Outpatient (OUT) | payer MEDICARE, OTHER, SELFPAY ==
--- OUTSIDE RECORDS SUMMARY | 2025-03-18 11:30 | XMS_ITS | Encounter Summary ---
Author Organization [facility] tem Address [id number] [address] [place] [address] Care Team Providers Care Tube Repairer Name Role Phone EshanoemiDarell ibrahim DO Primary Care Provider [phone] Reason for Visit * QpcpiuPmtjeajsGdow-inJulq-NA; Right Open Ligation with <10 Phlebs; done at [facility];patient has no pain today Encounter Details DateTypeDepartmentCare Team (Latest Contact Info)Dltbahosgyb71/01/2025 11:30 AM ESTOffice Visit [facility] [address] [facility] [place] [address] Katheryn Gill, DO [address] [facility] [address] [place], [place] [phone] Social History Tobacco UseTypesPacks/DayYears UsedDateSmoking Tobacco: XiuhkaYsbncffuvd225 Smokeless Tobacco: NeverAlcohol UseStandard Drinks/WeekCommentsYes2 (1 standard drink = 0.6 oz pure alcohol)beerSocial Connection and Isolation PanelAnswerDate RecordedIn a typical week, how many times do you talk on the phone with family, friends, or neighbors?More than three times a week03/17/2022How often do you get together with friends or relatives?More than three times a week03/17/2022How often do you attend gnosticist or evangelical services?More than 4 times per year 2Do you belong to any clubs or organizations such as gnosticist groups, unions, fraternal or athletic groups, or school groups?Yes2022How often do you attend meetings of the clubs or organizations you belong to?More than 4 times per year03/17/2022re you , , , , never , or living with a partner?Omsrdzm4003/17/2022verall Financial Resource Strain (CARDIA)AnswerDate RecordedHow hard is it for you to pay for the very basics like food, housing, medical care, and heating?Not hard at all03/17/2022 PHQ-2AnswerDate RecordedTotal Mcygz605Fin[facility]s hospital [place] of Occupational Health - Occupational Stress QuestionnaireAnswerDate RecordedDo you feel stress - tense, restless, nervous, or anxious, or unable to sleep at night because your mind is troubled all the time - these days?Patient goebmciw03/30/2022Exercise Vital SignAnswerDate RecordedOn average, how many days [...] from getting things needed for daily living?No03/17/2022 AUDIT-CAnswerDate RecordedQ1: How often do you have a drink containing alcohol? 2-4 times a month03/18/2025Q2: How many drinks containing alcohol do you have on a typical day when you are drinking?1 or Q3: How often do you have six or more drinks on one occasion?Bmynghv7803/18/2025hildcareAnswerDate Recorded Do problems getting child and adolescent therapist make it difficult for you to work or study?No 03/17/2022EmploymentAnswerDate RecordedDo you need help finding a local career center and/or a training program?No03/17/2022Hunger ScreeningAnswerDate Recorded Within the past 12 months we worried whether our food would run out before we got money to buy more.Never True12/01/2025Within the past 12 months the food we bought just didn't last and we didn't have money to get more.Never True 03/18/2025Purpose - LifeAnswerDate RecordedI have a purpose and direction in my life.Strongly Agree03/17/2022EducationAnswerDate RecordedWhat is the highest level of school you have completed or the highest degree you have received? Associate degree: occupational, technical, or vocational iofiwqg3203/17/2022ex and Gender InformationValueDate RecordedSex Assigned at BirthNot on fileLegal McyQadn0311/21/2014 11:54 AM EDTGender IdentityNot on fileSexual OrientationNot on filedocumented as of this encounter Last Filed Vital Signs Vital SignReadingTime TakenCommentsBlood Osusofmb509/8403/18/2025 11:20 AM EST Pulse--Temperature--Respiratory Rate--Oxygen Saturation--Inhaled Oxygen Concentration--Bnmcia816.3 kg (285 lb)03/18/2025 11:20 AM YMJUipyku996.9 cm (6') 03/18/2025 11:20 AM ESTBody Mass Index38.6503/18/2025 11:20 AM ESTdocumented in this encounter Functional Status * AUDIT-C ScoreAnswerDate of QuaotncdwvHpbtcs037/01/2025 11:18 AM Ina Genao * QuestionAnswerDate of AssessmentAuthorQ1: How often do you have a drink containing alcohol?2-4 times a month03/18/2025 11:18 AM Ina Genao Q2: How many drinks containing alcohol do you have on a typical day when you are drinking?1 or 11:18 AM Ina GenaoQ3: How often do you have six or more drinks on one occasion?Apszgfk5703/18/2025 11:18 AM EST Ina Rios documented as of this encounter Plan of Treatment DateTypeDepartmentCare Team (Latest Contact Info)Tzsppkqycfm55/03/2025 10:00 AM ESTHospital Encounter [facility] [address] [place] [address] Katheryn Gill, DO [address] [facility] [address] [place] [phone] 03/20/2025 10:00 AM EST - 03/20/2025 12:00 PM ESTSurgery [facility] [address] [place] [address] Katheryn Gill, DO [address] [place] [address] LIGATION VEIN LOWER EXTREMITY OPEN GROIN VARICOSITIES (DIRECTLY OFF THE FEMORAL VEIN WITH NO STRAIGHT SEGMENT)04/01/2025 10:30 AM ESTOffice Visit [facility] [address] [facility] [address] [place] [address] Katheryn Gill, DO [address] [place] [address] NamePriorityAssociated DiagnosesDate/TimeLIGATION VEIN LOWER EXTREMITY Chronic venous insufficiency of lower extremity 03/20/2025 10:00 AM ESTPHLEBECTOMY Chronic venous insufficiency of lower extremity 03/20/2025 10:00 AM ESTdocumented as of this encounter Visit Diagnoses Not on filedocumented in this encounter Additional Health Concerns AssessmentNoted TimePHQ-9 Depression Total Score: 1:54 PM EDT documented as of this encounter Care Teams Team MemberRelationshipSpecialtyStart DateEnd Date Darell Chapman DO [address] [place] [address] PCP - GeneralInternal Medicine11/01/16documented as of this encounter
--- OUTSIDE RECORDS SUMMARY | 2025-03-18 19:54 | XMS_ITS | Encounter Summary ---
Author Organization [facility] [email or web address] [facility] tem Address [id number] [place] [address] Care Team Providers Care Vision Rehabilitation Therapist Name Role Phone Darell Chapman Primary Care Provider [phone] Encounter Details DateTypeDepartmentCare Team (Latest Contact Info)Vfmalubxstp04/17/2025Orders Only [facility] - ENT [address] [facility] [place] [address] Ref Prov, [place] [address] Social History Tobacco UseTypesPacks/DayYears UsedDateSmoking Tobacco: SigczjUcgovupeat914 Smokeless Tobacco: NeverAlcohol UseStandard Drinks/WeekCommentsYes2 (1 standard drink = 0.6 oz pure alcohol)beerSocial Connection and Isolation PanelAnswerDate RecordedIn a typical week, how many times do you talk on the phone with family, friends, or neighbors?More than three times a week03/17/2022How often do you get together with friends or relatives?More than three times a week03/17/2022How often do you attend sabianist or caodaism services?More than 4 times per year 2Do you belong to any clubs or organizations such as sabianist groups, unions, fraternal or athletic groups, or school groups?Yes03/17/2022How often do you attend meetings of the clubs or organizations you belong to?More than 4 times per year2Are you , , , , never , or living with a partner?Nbmhbgb72/30/2022Overall Financial Resource Strain (CARDIA)AnswerDate RecordedHow hard is it for you to pay for the very basics like food, housing, medical care, and heating?Not hard at all03/17/2022 PHQ-2AnswerDate RecordedTotal Ncnnt220Finlifepoint hospitals [place] of Occupational Health - Occupational Stress QuestionnaireAnswerDate RecordedDo you feel stress - tense, restless, nervous, or anxious, or unable to sleep at night because your mind is troubled all the time - these days?Patient riavhkbr24/30/2022Exercise Vital SignAnswerDate RecordedOn average, how many days [...] drink containing alcohol?4 or more times a week02/21/2025Q2: How many drinks containing alcohol do you have on a typical day when you are drinking?1 or Frequency of Binge DrinkingNot on file02/21/2025hildcareAnswerDate RecordedDo problems getting child welfare caseworker make it difficult for you to work or study?No03/17/2022Employment AnswerDate RecordedDo you need help finding a local career center and/or a training program?No03/17/2022Hunger ScreeningAnswerDate RecordedWithin the past 12 months we worried whether our food would run out before we got money to buy more.Never True02/21/2025Within the past 12 months the food we bought just didn't last and we didn't have money to get more.Never True02/21/2025Purpose - LifeAnswerDate RecordedI have a purpose and direction in my life.Strongly Agree 03/17/2022EducationAnswerDate RecordedWhat is the highest level of school you have completed or the highest degree you have received?Associate degree: occupational, technical, or vocational vlsczdd4203/17/2022ex and Gender InformationValueDate RecordedSex Assigned at BirthNot on fileLegal SexMale 11/21/2014 11:54 AM EDTGender IdentityNot on fileSexual OrientationNot on file documented as of this encounter Plan of Treatment DateTypeDepartmentCare Team (Latest Contact Info)Ijrlsrqlzdx10/03/2025 10:00 AM ESTHospital [facility]counter [facility] [address] [place] [address] Katheryn Gill, DO [address] [place] [address] 03/20/2025 10:00 AM EST - 03/20/2025 12:00 PM ESTSurgery [facility] [address] [place] [address] Katheryn Gill, DO [address] [place] [address] LIGATION VEIN LOWER EXTREMITY OPEN GROIN VARICOSITIES (DIRECTLY OFF THE FEMORAL VEIN WITH NO STRAIGHT SEGMENT)04/01/2025 10:30 AM ESTOffice Visit [facility] [address] [place] [address] Katheryn Gill, DO [address] [place] [address] NamePriorityAssociated DiagnosesDate/TimeLIGATION VEIN LOWER EXTREMITY Chronic venous insufficiency of lower extremity 03/20/2025 10:00 AM ESTPHLEBECTOMY Chronic venous insufficiency of lower extremity 03/20/2025 10:00 AM ESTdocumented as of this encounter Procedures Procedure NamePriorityDate/TimeAssociated DiagnosisCommentsPOLYSOMNOGRAPHY 4 OR MORE PARAMETERS WITH PAP CZOHKKUDFPgjoivf68/17/2025 3:11 PM ESTdocumented in this encounter Results * Polysomnography 4 or more parameters with PAP titration (03/04/2025 3:11 PM EST) Narrative Authorizing ProviderResult TypeResult StatusNot In System Ref [facility] ORDERABLESFinal ResultPerforming OrganizationAddressCity/State/ZIP CodePhone Number MANUALLY TRANSCRIBED RESULTS documented in this encounter Visit Diagnoses Not on filedocumented in this encounter Additional Health Concerns AssessmentNoted TimePHQ-9 Depression Total Score: 1:54 PM EDT documented as of this encounter Care Teams Team MemberRelationshipSpecialtyStart DateEnd Date Darell Chapman DO [address] [place] [address] PCP - GeneralInternal Medicine11/01/16documented as of this encounter
--- OUTSIDE RECORDS SUMMARY | 2025-03-18 19:54 | XMS_ITS | Encounter Summary ---
Author Organization [facility] [id number] [address] [place] [address] Care Team Providers Care Refrigeration Engineering Teacher Name Role Phone Darell Chapman Primary Care Provider [phone] Encounter Details DateTypeDepartmentCare Team (Latest Contact Info)Yaqbgyphgdv15/19/2025Orders Only [facility] - Family Medicine [address] [place] [phone] Ref Prov, [place] [address] Social History Tobacco UseTypesPacks/DayYears UsedDateSmoking Tobacco: [id number] Smokeless Tobacco: NeverAlcohol UseStandard Drinks/WeekCommentsYes2 (1 standard drink = 0.6 oz pure alcohol)beerSocial Connection and Isolation PanelAnswerDate RecordedIn a typical week, how many times do you talk on the phone with family, friends, or neighbors?More than three times a week03/17/2022How often do you get together with friends or relatives?More than three times a week03/17/2022How often do you attend moravian or lutheran services?More than 4 times per year 2Do you belong to any clubs or organizations such as moravian groups, unions, fraternal or athletic groups, or school groups?Yes03/17/2022How often do you attend meetings of the clubs or organizations you belong to?More than 4 times per year2Are you , , , , never , or living with a partner?Uamvika13/30/2022Overall Financial Resource Strain (CARDIA)AnswerDate RecordedHow hard is it for you to pay for the very basics like food, housing, medical care, and heating?Not hard at all03/17/2022 PHQ-2AnswerDate RecordedTotal Kxrja245Finamerican fork hospital [place] of Occupational Health - Occupational Stress QuestionnaireAnswerDate RecordedDo you feel stress - tense, restless, nervous, or anxious, or unable to sleep at night because your mind is troubled all the time - these days?Patient bdaazgnh07/30/2022Exercise Vital SignAnswerDate RecordedOn average, how many days [...] Binge DrinkingNot on file02/21/2025hildcareAnswerDate RecordedDo problems getting early childhood associate make it difficult for you to [...] have received?Associate degree: occupational, technical, or vocational fehguem0003/17/2022ex and Gender InformationValueDate RecordedSex Assigned at BirthNot on fileLegal SexMale 11/21/2014 11:54 AM EDTGender IdentityNot on fileSexual OrientationNot on file documented as of this encounter Plan of Treatment DateTypeDepartmentCare Team (Latest Contact Info)Eewiviysxuh40/03/2025 10:00 AM ESTHospital [facility]counter [facility] [address] [facility] [place] [place] [address] Katheryn Gill, DO [address] [place] [address] 03/20/2025 10:00 AM EST - 03/20/2025 12:00 PM ESTSurgery [facility] [address] [facility] [place] [place] [address] Katheryn Gill, DO [address] [facility] [address] [place] [address] LIGATION VEIN LOWER EXTREMITY OPEN GROIN VARICOSITIES (DIRECTLY OFF THE FEMORAL VEIN WITH NO STRAIGHT SEGMENT)04/01/2025 10:30 AM ESTOffice Visit [facility] [address] [facility] [address] [place] [address] Katheryn Gill, DO [address] [place] [address] NamePriorityAssociated DiagnosesDate/TimeLIGATION VEIN LOWER EXTREMITY Chronic venous insufficiency of lower extremity 03/20/2025 10:00 AM ESTPHLEBECTOMY Chronic venous insufficiency of lower extremity 03/20/2025 10:00 AM ESTdocumented as of this encounter Procedures Procedure NamePriorityDate/TimeAssociated DiagnosisCommentsMULTIPLE LABSRoutine 03/06/2025 8:43 AM ESTdocumented in this encounter Results * Multiple labs (03/06/2025 8:43 AM EST) Narrative Authorizing ProviderResult TypeResult StatusNot In System Ref ProvPR IMAGING Final ResultPerforming OrganizationAddressCity/State/ZIP CodePhone Number MANUALLY TRANSCRIBED RESULTS documented in this encounter Visit Diagnoses Not on filedocumented in this encounter Additional Health Concerns AssessmentNoted TimePHQ-9 Depression Total Score: 1:54 PM EDT documented as of this encounter Care Teams Team MemberRelationshipSpecialtyStart DateEnd Date Darell Chapman DO [address] [place] [address] PCP - GeneralInternal Medicine11/01/16documented as of this encounter
--- OUTSIDE RECORDS SUMMARY | 2025-03-18 19:54 | XMS_ITS | Clinical Summary ---
Author Organization [facility] Address [address] [place] [address] Care Team Providers Care Associate Professor Of Economics Name Role Phone Unavailable Primary Care Provider Unavailabl e Social History Tobacco UseTypesPacks/DayYears UsedDateSmoking Tobacco: Never AssessedSex and Gender InformationValueDate RecordedSex Assigned at BirthNot on fileLegal Sex Male06/30/2022 11:08 PM EDTGender IdentityNot on fileSexual OrientationNot on file Last Filed Vital Signs Vital SignReadingTime TakenCommentsBlood Nnxfqiie582/8605/19/2020 12:00 PM EST Pulse--Temperature--Respiratory Rate--Oxygen Saturation--Inhaled Oxygen Concentration--Lsvcer599 kg (267 lb)05/19/2020 12:00 PM HKKXmxfzt355.9 cm (6') 05/19/2020 12:00 PM ESTBody Mass Index36.21005/19/2020 12:00 PM EST Plan of Treatment Not on file Insurance
--- OUTSIDE RECORDS SUMMARY | 2025-03-18 19:54 | XMS_ITS | Encounter Summary ---
Author Organization [employer] Address [facility] [place] [id number] [address] [place] [address] Care Team Providers Care Director Of Testing Name Role Phone EshanoahDarell DO Primary Care Provider [phone] Encounter Details DateTypeDepartmentCare Team (Latest Contact Info)Ninthredwbv46/14/2025External Services Encounter [facility] [address] [address] Katheryn Gill DO [address] [place] [address] Social History Tobacco UseTypesPacks/DayYears UsedDateSmoking Tobacco: GpchoqZwudlofcno422 Smokeless Tobacco: NeverAlcohol UseStandard Drinks/WeekCommentsYes2 (1 standard drink = 0.6 oz pure alcohol)beerSocial Connection and Isolation PanelAnswerDate RecordedIn a typical week, how many times do you talk on the phone with family, friends, or neighbors?More than three times a week03/17/2022How often do you get together with friends or relatives?More than three times a week03/17/2022How often do you attend scientology or faith services?More than 4 times per year 2Do you belong to any clubs or organizations such as scientology groups, unions, fraternal or athletic groups, or school groups?Yes03/17/2022How often do you attend meetings of the clubs or organizations you belong to?More than 4 times per year2Are you , , , , never , or living with a partner?Ksikjxx3903/17/2022verall Financial Resource Strain (CARDIA)AnswerDate RecordedHow hard is it for you to pay for the very basics like food, housing, medical care, and heating?Not hard at all03/17/2022 PHQ-2AnswerDate RecordedTotal Eubja329Finshriners hospitals for children [place] of Occupational Health - Occupational Stress QuestionnaireAnswerDate RecordedDo you feel stress - tense, restless, nervous, or anxious, or unable to sleep at night because your mind is troubled all the time - these days?Patient gnfkrafi91/30/2022Exercise Vital SignAnswerDate RecordedOn average, how many days [...] DrinkingNot on file02/21/2025hildcareAnswerDate RecordedDo problems getting child psychologist make it difficult for you to work [...] have received?Associate degree: occupational, technical, or vocational ylhcbpe5903/17/2022ex and Gender InformationValueDate RecordedSex Assigned at BirthNot on fileLegal SexMale 11/21/2014 11:54 AM EDTGender IdentityNot on fileSexual OrientationNot on file documented as of this encounter Plan of Treatment DateTypeDepartmentCare Team (Latest Contact Info)Oxhooqqykeb39/03/2025 10:00 AM ESTHospital Encounter [facility] [address] [place] [address] Katheryn Gill, DO [address] [place] [address] 03/20/2025 10:00 AM EST - 03/20/2025 12:00 PM ESTSurgery [facility] [address] [place] [address] Katheryn Gill, DO [address] [place] [address] LIGATION VEIN LOWER EXTREMITY OPEN GROIN VARICOSITIES (DIRECTLY OFF THE FEMORAL VEIN WITH NO STRAIGHT SEGMENT)04/01/2025 10:30 AM ESTOffice Visit [facility] [address] [place] [address] Katheryn Gill, DO [address] [place] [address] NamePriorityAssociated DiagnosesDate/TimeLIGATION VEIN LOWER EXTREMITY Chronic venous [...] DateEnd Date Darell Chapman DO [address] [place] [address] PCP - GeneralInternal Medicine11/01/16documented as of this encounter
--- OUTSIDE RECORDS SUMMARY | 2025-03-18 19:54 | XMS_ITS | Encounter Summary ---
Author Organization [employer] Address [facility] [id number] [address] [place] [address] Care Team Providers Care Towboat Captain Name Role Phone Air Darell Brady Primary Care Provider [phone] Encounter Details DateTypeDepartmentCare Team (Latest Contact Info)Kzjrvqgralc64/29/2025Travel Social History Tobacco UseTypesPacks/DayYears UsedDateSmoking Tobacco: KqqhwbWhztwdqfek548 Smokeless Tobacco: NeverAlcohol UseStandard Drinks/WeekCommentsYes2 (1 standard drink = 0.6 oz pure alcohol)beerSocial Connection and Isolation PanelAnswerDate RecordedIn a typical week, how many times do you talk on the phone with family, friends, or neighbors?More than three times a week03/17/2022How often do you get together with friends or relatives?More than three times a week03/17/2022How often do you attend yazdanism or methodist services?More than 4 times per year 2Do you belong to any clubs or organizations such as yazdanism groups, unions, fraternal or athletic groups, or school groups?Yes03/17/2022How often do you attend meetings of the clubs or organizations you belong to?More than 4 times per year03/17/2022re you , , , , never , or living with a partner?Voonrhs32/30/2022Overall Financial Resource Strain (CARDIA)AnswerDate RecordedHow hard is it for you to pay for the very basics like food, housing, medical care, and heating?Not hard at all03/17/2022 PHQ-2AnswerDate RecordedTotal Akfzo960/29/2025Finspanish fork hospital [place] of Occupational Health - Occupational Stress QuestionnaireAnswerDate RecordedDo you feel stress - tense, restless, nervous, or anxious, or unable to sleep at night because your mind is troubled all the time - these days?Patient fgbewcuf73/30/2022Exercise Vital SignAnswerDate RecordedOn average, how many days [...] DrinkingNot on file02/21/2025hildcareAnswerDate RecordedDo problems getting child care center assistant director make it difficult for you to [...] have received?Associate degree: occupational, technical, or vocational nztnosi7203/17/2022ex and Gender InformationValueDate RecordedSex Assigned at BirthNot on fileLegal SexMale 11/21/2014 11:54 AM EDTGender IdentityNot on fileSexual OrientationNot on file documented as of this encounter Plan of Treatment DateTypeDepartmentCare Team (Latest Contact Info)Vvjfrptxjak90/03/2025 10:[address] [facility] [address] [place] [address] Katheryn Gill, DO [email or web address] [place] [address] 03/20/2025 10:00 AM EST - 03/20/2025 12:[address] [facility] [address] [facility] [place] [address] Katheryn Gill, DO [address] [facility] [address] [place] [address] LIGATION VEIN LOWER EXTREMITY OPEN GROIN VARICOSITIES (DIRECTLY OFF THE FEMORAL VEIN WITH NO STRAIGHT SEGMENT)04/01/2025 10:30 AM ESTOffice Visit [facility] [address] [place] [address] Katheryn Gill, DO [address] [facility] [address] [place] [address] NamePriorityAssociated DiagnosesDate/TimeLIGATION VEIN LOWER EXTREMITY Chronic venous [...] DateEnd Date Darell Chapman DO [address] [place] [address] PCP - GeneralInternal Medicine7/17/17documented as of this encounter
--- OUTSIDE RECORDS SUMMARY | 2025-03-18 19:54 | XMS_ITS | Clinical Summary ---
Author Organization Message Systemss tem Address [id number] [address] [place] [address] Care Team Providers Care Embedded Software Manager Name Role Phone EshanoemiDarell ibrahim DO Primary Care Provider [phone] Allergies No known active allergies Medications MedicationSigDispense [...] mg total) by mouth in the morning.Active celecoxib (CeleBREX) 200 mg capsule Take 1 capsule (200 mg total) by mouth in the morning.5Active pregabalin (LYRICA) 50 mg capsule Indications:Peripheral polyneuropathyTake 1 capsule (50 mg total) by mouth once daily at bedtime. 30 capsule 5Active fluticasone propionate (FLONASE) 50 mcg/actuation nasal spray Indications:Nasal congestionAdminister 2 sprays into each nostril in the morning. 16 g 5Active azelastine (ASTELIN) 137 mcg (0.1 %) nasal spray Indications:Nasal congestionAdminister 1 spray into each nostril in the morning and 1 spray before bedtime. Use in each nostrilas directed. 30 mL 5Active latanoprost (XALATAN) 0.005 % ophthalmic solution Administer 1 drop to both eyes in the morning.5Active losartan (COZAAR) 100 mg tablet Indications:Essential hypertension,Mixed hyperlipidemia,Bradycardia, Arteriosclerosis of arterial coronary artery bypass graft,Coronary arteriosclerosisTake 1 tablet (100 mg total) by mouth in the morning. 90 tablet 5Active clopidogreL (PLAVIX) 75 mg tablet Indications:Essential hypertension,Mixed hyperlipidemia,Bradycardia, Arteriosclerosis of arterial coronary artery bypass graft,Coronary arteriosclerosisTake 1 tablet (75 mg total) by mouth in the morning. 90 tablet 5Active atorvastatin (LIPITOR) 20 mg tablet Indications:Essential hypertension,Mixed hyperlipidemia,Bradycardia, Arteriosclerosis of arterial coronary artery bypass graft,Coronary arteriosclerosisTake 1 tablet (20 mg total) by mouth once daily at bedtime. 90 tablet 5Active ezetimibe (ZETIA) 10 mg tablet Indications:Essential hypertension,Mixed hyperlipidemia,Bradycardia, Arteriosclerosis of arterial coronary artery bypass graft,Coronary arteriosclerosisTake 1 tablet (10 mg total) by mouth in the morning. 90 tablet 5Active nitroglycerin (NITROSTAT) 0.4 MG SL tablet Indications:Bradycardia,Essential hypertension,Mixed hyperlipidemia, Arteriosclerosis of arterial coronary artery bypass graft,Stable angina,Coronary arteriosclerosisPlace 1 tablet (0.4 mg total) under the tongue every 5 (five) minutes as needed for chest pain. 25 tablet 5Active famotidine (PEPCID) 40 mg tablet Indications:Globus sensation,Laryngopharyngeal reflux (LPR)TAKE 1 TABLET (40 MG TOTAL) BY MOUTH IN THE MORNING AND BEFORE BEDTIME 180 tablet 5Active furosemide (LASIX) 20 mg tablet To be taken as needed once a day 45 tablet 5Active nystatin-triamcinolone (MYCOLOG II) ointment Apply 1 Application topically in the morning and 1 Application before bedtime. 30 g 5Active nitroglycerin (NITROSTAT) 0.4 MG SL tablet Indications:Bradycardia,Essential hypertension,Mixed hyperlipidemia, Arteriosclerosis of arterial coronary artery bypass graft,Stable angina,Coronary arteriosclerosisPlace 1 tablet (0.4 mg total) under the tongue every 5 (five) minutes as needed for chest pain. 25 tablet Discontinued(Reorder) atorvastatin (LIPITOR) 20 mg tablet Indications:Bradycardia,Essential hypertension,Mixed hyperlipidemia, Arteriosclerosis of arterial coronary artery bypass graft,Coronary arteriosclerosisTake 1 tablet (20 mg total) by mouth once daily at bedtime. 90 tablet Discontinued(Reorder) clopidogreL (PLAVIX) 75 mg tablet Indications:Bradycardia,Essential hypertension,Mixed hyperlipidemia, Arteriosclerosis of arterial coronary artery bypass graft,Coronary arteriosclerosisTake 1 tablet (75 mg total) by mouth in the morning. 90 tablet Discontinued(Reorder) ezetimibe (ZETIA) 10 mg tablet Indications:Bradycardia,Essential hypertension,Mixed hyperlipidemia, Arteriosclerosis of arterial coronary artery bypass graft,Coronary arteriosclerosisTake 1 tablet (10 mg total) by mouth in the morning. 90 tablet Discontinued(Reorder) losartan (COZAAR) 100 mg tablet Indications:Bradycardia,Essential hypertension,Mixed hyperlipidemia, Arteriosclerosis of arterial coronary artery bypass graft,Coronary arteriosclerosisTake 1 tablet (100 mg total) by mouth in the morning. 90 tablet Discontinued(Reorder) tiZANidine (ZANAFLEX) 4 mg tablet Discontinued famotidine (PEPCID) 40 mg tablet Indications:Globus sensation,Laryngopharyngeal reflux (LPR)Take 1 tablet (40 mg total) by mouth in the morning and 1 tablet (40 mg total) before bedtime. 60 tablet Discontinued furosemide (LASIX) 20 mg tablet Take 1 tablet (20 mg total) by mouth as needed (For leg swelling). 30 tablet Discontinued(Reorder) Active Problems ProblemNoted DateDiagnosed DatePVC (premature ventricular contraction)04/16/2024 Osteoarthritis of knee2Artificial knee joint yhrxeuu3603/18/2022hronic venous insufficiency of lower anwppikon52/28/2022soriasis with arthropathy 5612Lhjyrey75/28/2022Impaired fasting xxgytmz5703/15/2022therosclerotic heart disease of [place] coronary artery with other forms of angina pectoris 03/15/2022Vitamin B12 deficiency fxmygrdptj33/29/2021hlebitis of superficial veins of lower hsrayrhpc73/21/2021Obstructive sleep apnea kfazfegc59/05/2017 Stable tgtyrn8511/05/2016Essential qaexznzkuodi66/21/2017Arteriosclerosis of arterial coronary artery bypass graft02/24/20065095Eqkishpeseduoj71/13/2006 Resolved Problems ProblemNoted DateDiagnosed DateResolved DatePeripheral vascular disease Encounters DateTypeDepartmentCare IcmsKaznzzeznrd89/01/2025 11:30 AM ESTOffice Visit [facility] [address] [place] [address] Katheryn Gill DO 03/16/20252997Qzpbxh70/19/2025Orders Only [facility] - Family Medicine [address] [place] [address] Ref Prov, Not In System 03/04/2025Orders Only [facility] - ENT [address] [place] [address] Ref Prov, Not In System 03/01/2025External Services Encounter [facility] [address] [place] [address] Katheryn Gill DO 02/28/2025Refill [facility] [address] [place] [address] Jessica Head, RN Med Bbkmiy0202/27/2025Refill [facility] - ENT [address] [place] [address], [address] [place] [address] Danna Guerrero MD Globus sensation; Laryngopharyngeal reflux (LPR)02/27/2025Orders Only [facility] - ENT [address] [place] [address], [address] [place] [address] Ref Prov, Not In System Obstructive sleep apnea nztegfyr98/10/2025Refill [facility] [address] [place] [address] Jessica Head, RN Med Vyagpe9302/21/2025 8:00 AM ESTOffice Visit [facility] [address] [place] [address] Dameon Eason MD Shuaib, Mohammed, MD S/P CABG x 2 (Primary Dx); Essential hypertension; Mixed hyperlipidemia; PVC's (premature ventricular contractions); AV block, Mobitz 1; Bradycardia; Arteriosclerosis of arterial coronary artery bypass graft; Coronary arteriosclerosis; Preop cardiovascular exam02/21/2025Patient Outreach [facility] [address] [place] [address] Darell Chapman DO 02/20/2025Telephone [facility] [address] [place] [address] Jannet Nichole CMA 02/20/2025Results Follow-Up [facility] [address] [place] [address] Rosina Tabares, RN Holter monitor 24-48 hour02/19/20253252Hoqtab76/22/2025Telephone [facility] - Sleep Disorders [address] [place] [address] Danna Guerrero MD Sleep Lab (PSG)02/06/2025Telephone [facility] - ENT [address] [place] [address], [address] [place] [address] Danna Guerrero MD 02/04/2025 12:45 PM EDTOffice Visit [facility] - ENT [address] [place] [address], [address] [place] [address] Danna Guerrero MD Obstructive sleep apnea syndrome (Primary Dx); Intolerance of continuous positive airway pressure (CPAP) ventilation; Snoring; Chronic fatigue; BMI 38.0-38.9,adult; Obesity (BMI 30-39.9); Drainage from nose; Globus sensation; Laryngopharyngeal reflux (LPR); Nasal qweffekuzi77/20/2025Results Follow-Up [facility] - ENT [address] [place] [address], [address] [place] [address] Darell Chapman, PSG Diagnostic < 12 Years02/04/2025Orders Only [facility] - ENT [address] [place] [address], [address] [place] [address] Darell Chapman DO 02/02/20257688Vrsrcd71/16/2025Telephone [facility] - ENT [address] [place] [address], [address] [place] [address] No Pcp, No Pcp 01/31/2025[facility] [address] [place] [address] Darell Chapman DO 01/24/2025Telephone [facility] [address] [place] [address] Baljit Anglin CMA 01/23/2025Patient Outreach [facility] [address] [place] [address] Darell Chapman, DO Vitamin B12 deficiency neuropathy (Primary Dx); Atherosclerotic heart disease of [place] coronary artery with other forms of angina iqopqqih79/29/2025 10:15 AM EDTOffice Visit [facility] [place] [address] [place] [address] Katheryn Gill, Chronic venous insufficiency of lower extremity (Primary Dx); Pwnqmgzfqy77/28/7359Dqfihy46/27/2025Travelfrom Last 3 Months Immunizations ImmunizationAdministration DatesNext DueInfluenza, Im Trivalent Preservative 01/04/2015Influenza, Injectable, Mdck, Preservative Free, Quad03/21/2023 Influenza, Injectable, Felgzqaiqmig63/02/2020,01/16/2018Influenza, Recombinant, Quadrivalent, Injectable, Tihtdtc1703/29/2022Influenza, Bzuijejoxsj92/05/2023, 1Pneumococcal Conjugate 13-Ubmwzr1112/19/2014Pneumococcal Polysaccharide 12/13/2007Tdap06/22/2022,04/30/20145304Vbuiylp41/29/2008 Family History Medical HistoryRelationNameCommentsCancerBrother 1LeukemiaHeart diseaseBrother 2 CancerFatherLungHeart diseaseFatherCardiomyopathyMotherHeart diseaseMother RelationNameStatusCommentsBrother 1Brother 2FatherDeceasedMotherDeceased Social History Tobacco UseTypesPacks/DayYears UsedDateSmoking Tobacco: IxgyklJysoftxbhh719 Smokeless Tobacco: Never Tobacco Cessation:Counseling Given: Not [...] times a week03/17/2022How often do you attend yarsani or orthodoxy services?More than 4 times per year03/17/2022o you belong to any clubs or organizations such as yarsani groups, unions, fraternal or athletic groups, or school groups?Yes03/17/2022How often do you attend meetings of the clubs or organizations you belong to?More than 4 times per year03/17/2022 Are you , , , , never , or living with a partner?Rbzmmsj5103/17/2022verall Financial Resource Strain (CARDIA)AnswerDate RecordedHow hard is it for you to pay for the very basics like food, housing, medical care, and heating?Not hard at all03/17/2022HQ-2AnswerDate RecordedTotal Omxry645Finval[facility] [place] of Occupational Health - Occupational Stress QuestionnaireAnswerDate RecordedDo you feel stress - tense, restless, nervous, or anxious, or unable to sleep at night because yourmind is troubled all the time - these days?Patient uclldflu14/30/2022Exercise Vital SignAnswerDate RecordedOn average, how many days [...] have six or more drinks on one occasion?Bltsfmk2203/18/2025hildcareAnswerDate Recorded Do problems getting child care education coordinator make it difficult for you to work or study?No 03/17/2022EmploymentAnswerDate RecordedDo you need help finding a local career center and/or a training program?No03/17/2022Hunger ScreeningAnswerDate Recorded Within the past 12 months we worried whether our food would run out before we got money to buy more.Never True03/18/2025Within the past 12 months the food we bought just didn't last and we didn't have money to get more.Never True 03/18/2025Purpose - LifeAnswerDate RecordedI have a purpose and direction in my life.Strongly Agree03/17/2022EducationAnswerDate RecordedWhat is the highest level of school you have completed or the highest degree you have received? Associate degree: occupational, technical, or vocational yarozwv2103/17/2022ex and Gender InformationValueDate RecordedSex Assigned at BirthNot on fileLegal GvtPabt6011/21/2014 11:54 AM EDTGender IdentityNot on fileSexual OrientationNot on file Last Filed Vital Signs Vital SignReadingTime TakenCommentsBlood Zuyezfxe040/8403/18/2025 11:20 AM EST Bkxlr372302/21/2025 8:02 AM YDGPqpvhnwutrt28.5 ??C (97.7 ??F)09/13/2024 1:55 PM EDTRespiratory Bxey322507/17/2024 1:13 PM EDTOxygen Xvqsmefehg16%02/21/2025 8:02 AM ESTInhaled Oxygen Concentration--Igkpag506.3 kg (285 lb)03/18/2025 11:20 AM XBURlubkb556.9 cm (6')03/18/2025 11:20 AM ESTBody Mass Index38.6503/18/2025 11:20 AM EST Plan of Treatment DateTypeDepartmentCare Team (Latest Contact Info)Fkhoygwiwhd05/03/2025 10:00 AM ESTHospital Encounter [facility] -[facility]gery [address] [place] [address] Katheryn Gill, DO [address] [facility] [address] [place] [address] 03/20/2025 10:00 AM EST - 03/20/2025 12:00 PM ESTSurgery [facility] [address] [place] [address] Katheryn Gill, DO [address] [place] [address] LIGATION VEIN LOWER EXTREMITY OPEN GROIN VARICOSITIES (DIRECTLY OFF THE FEMORAL VEIN WITH NO STRAIGHT SEGMENT)04/01/2025 10:30 AM ESTOffice Visit [facility] [address] [place] [address] Katheryn Gill, DO [address] [place] [address] NamePriorityAssociated DiagnosesDate/TimeLIGATION VEIN LOWER EXTREMITY Chronic venous insufficiency of lower extremity 03/20/2025 10:00 AM ESTPHLEBECTOMY Chronic venous insufficiency of lower extremity 03/20/2025 10:00 AM ESTHealth MaintenanceDue DateLast DoneCommentsAdult BMI Follow Up Plan11/29/1973Zoster (Shingles) Vaccine (1 of 2)11/29/1974Colonoscopy 11/29/2000RSV ( or age 60+ yrs) (1 - Risk 60-74 years 1-dose series) 2015COVID-19 Vaccine (3 - Pfizer risk series)/08/2020, 12/01/2020Medicare Annual Wellness Visit/Influenza Vaccine /08/2022, 03/21/2023, 03/29/2022, Additional history exists Depression Prjeyarqx33Fall Risk Dhnodbmlx29 Statin Use: Whzujtzsqyzmbv36dult BMI Khymrlsyz64/01/2026 03/18/2025Tobacco Nthckykdt24DTaP,Tdap and Td Vaccines (3 - Td or Tdap)/10/2022, 04/30/2014bdominal Aortic Aneurysm (AAA) Screen Vddccstxv31/14/2023 Medical Devices Not on file Procedures Procedure NamePriorityDate/TimeAssociated DiagnosisCommentsMULTIPLE LABSRoutine 03/06/2025 8:43 AM ESTPOLYSOMNOGRAPHY 4 OR MORE PARAMETERS WITH PAP TITRATION Oezzebd7303/04/2025 3:11 PM ESTPOLYSOMNOGRAPHY 4 OR MORE PARAMETERSRoutine 02/19/2025 4:35 PM EST Obstructive sleep apnea syndrome , RETROPERITNL ABD, RKAKryqyeo26/14/2023 7:52 AM EDTfrom Last 3 Months or Most Recently Relevant to Health Maintenance Results * Multiple labs (03/06/2025 8:43 AM EST) Narrative Authorizing ProviderResult TypeResult StatusNot In System Ref ProvPR IMAGING Final ResultPerforming OrganizationAddressCity/State/ZIP CodePhone Number MANUALLY TRANSCRIBED RESULTS * Polysomnography 4 or more parameters with PAP titration (03/04/2025 3:11 PM EST) Narrative Authorizing ProviderResult TypeResult StatusNot In System Ref ProvSLEEP CENTER ORDERABLESFinal ResultPerforming OrganizationAddressCity/State/ZIP CodePhone Number MANUALLY TRANSCRIBED RESULTS * PSG Diagnostic (02/19/2025 4:35 PM EST) Narrative Authorizing ProviderResult TypeResult StatusMohamad Raed Cesar MDSLEEP CENTER ORDERABLESFinal ResultPerforming OrganizationAddressCity/State/ZIP CodePhone Number MANUALLY TRANSCRIBED RESULTS * , RETROPERITNL ABD, LTD (06/29/2022 7:52 AM EDT) Narrative Authorizing ProviderResult TypeResult StatusNot In System Ref Prov PROCEDURE/MINOR SURGICAL ORDERABLESFinal ResultPerforming OrganizationAddress City/State/ZIP CodePhone Number MANUALLY TRANSCRIBED RESULTS from Last 3 Months or Most Recently Relevant to Health Maintenance Insurance Care Teams Team MemberRelationshipSpecialtyStart DateEnd Date Darell Chapman DO [address] [place] [address] PCP - GeneralInternal Medicine11/01/16
--- OUTSIDE RECORDS SUMMARY | 2025-03-18 19:56 | XMS_ITS | CCD ---
Author Organization [facility] CliniSyil Care Team Providers Care [employer] Guard Supervisor Name Role Phone MD MADHURI GERMAIN Attending Unavailable ALEK SHELTON Primary Care Unavailable ALEK SHELTON Consulting Unavailable Prince Velazquez Consulting Unavailable MD MADHURI GERMAIN Attending Unavailable ALEK SHELTON Primary Care Unavailable ALEK SHELTON Consulting Unavailable MD MADHURI GERMAIN Admitting Unavailable MD MADHURI GERMAIN Attending Unavailable ALEK SHELTON Primary Care Unavailable ALEX HAYES PA-C Consulting Unavaila MD MADHURI Moreno Admitting Unavailable MD MADHURI GERMAIN Attending Unavailable YUHAS, ALEK LOPEZ Primary [...] Unavailable DO Alek Shelton Primary Care Provider [phone] MD Jaren Velazquez Attending Provider DO Alek Shelton Primary Care Provider MD Jaren Velazquez Attending Provider DR JUMA [...] DR GASTON Primary Care Unavailable WEST, DR MIERYA Basurto Consulting Unavailable WEST, DR MIREYA Basurto Attending Unavailable WEST, DR MIREYA Basurto Admitting Unavailable ZIEBER, DR DARIN Yee Consulting Unavailable YUHAS, DR GASTON Primary Care Unavailable WEST, DR MIREYA Basurto Consulting Unavailable WEST, DR MIREYA Basurto Attending Unavailable WEST, DR MIREYA Basurto Admitting Unavailable Yuhas, DO Gaston Primary Care Provider ILIANA Villanueva Attending Provider MariesDO Gaston Primary Care Provider ILIANA Villanueva Attending Provider Yus, DO Gaston Primary Care Provider ILIANA Villanueva Attending Provider Yuhas, DO Gaston Primary Care Provider [phone] MD Prince Velazquez Attending Provider Alek Shelton DO Primary Care Provider [phone] Alek Shelton DO Primary Care Provider [phone] Prince Velazquez MD Attending Provider [phone] Yuhas DO, Alek L Primary Care Provider Maries DO, Alek Primary Care Provider Prince Velazquez MD Attending Provider Shelby Waldron DO Attending Provider Cat DO, Alek Primary Care Provider Prince Velazquez MD Attending Provider [phone] YUHAS, ALEK L Attending Unavailable YUHAS, ALEK L Referring Unavailable YUHAS, ALEK L Primary Care Unavailable YUHAS, ALEK L Attending Unavailable YUHAS, ALEK L Referring Unavailable YUHAS, ALEK L Primary Care Unavailable KATHERYN POWERS Attending Unavailable YUHAS, ALEK L Referring Unavailable YUHAS, ALEK L Primary Care Unavailable KATHERYN POWERS Attending Unavailable YUHAS, ALEK L Referring Unavailable YUHAS, ALEK L Primary Care Unavailable Velazquez, Prince Admitting Unavailable Velazquez, Prince Attending Unavailable Yuhas, Alek Primary Care Unavailable Yuhas, Alek Primary Care Unavailable Velazquez, Prince Admitting Unavailable Velazquez, Prinec Attending Unavailable Yuhas, Alek Primary Care Unavailable Velazquez, Prince Admitting Unavailable Velazquez, Prince Attending Unavailable Velazquez, Prince Attending Unavailable Velazquez, Prince Admitting Unavailable Yuhas, Alek Primary Care Unavailable Yuhas DO, Alek L Primary Care Provider CURRY CLEMONS Attending Unavailable DEBENEDETTI, YANI L Referring Unavailable YUHAS, ALEK L Primary Care Unavailable YUHAS, ALEK L Referring Unavailable YUHAS, ALEK L Primary Care Unavailable CESARHERNANDO Attending Unavailable YUHAS, ALEK L Referring Unavailable YUHAS, ALEK L Primary Care Unavailable DEBENEDETTI, YANI L Attending Unavailable DEBENEDETTI, YANI L Referring Unavailable YUHAS, ALEK L Primary Care Unavailable DEBENEDETTI, YANI L Attending Unavailable DEBENEDETTI, YANI L Referring Unavailable YUHAS, ALEK L Primary Care Unavailable CRISTINA, MOHAMMED Attending Unavailable YUHAS, ALEK L Referring Unavailable YUHAS, ALEK L Primary Care Unavailable KATHERYN POWERS Attending Unavailable KATHERYN POWERS Referring Unavailable YUHAS, ALEK L Primary Care Unavailable KATHERYN POWERS Attending Unavailable KATHERYN POWERS Referring Unavailable YUHAS, ALEK L Primary Care Unavailable KATHERYN POWERS Referring Unavailable YUHAS, ALEK Brady Primary Care Unavailable ALEA, CURRY Attending Unavailable YUHAS, ALEK Brady Referring Unavailable YUHAS, ALEK Brady Primary Care Unavailable ALEA, CURRY Attending Unavailable [...] Care Unavailable DEBENEDETTI, YANI L Attending Unavailable YUHAS, ALEK L Referring Unavailable YUHAS, ALEK L Primary Care Unavailable Allergies Allergy ClassificationReported Allergen(s)Allergy TypeDate of OnsetReaction(s) Facility (1 source)Povidone-Iodine; Translations: [Betadine][facility] Medications Current Medications MedicationDrug Class(es)DatesSig (Normalized)Sig [...] mg oral tablet (20 sources)HMG-CoA Reductase InhibitorStart: 82-09-4154nwxc 1 tablet by mouth once daily at bedtimeatorvastatin (LIPITOR) 20 mg tablet Indications: Essential hypertension , Mixed hyperlipidemia , Bradycardia , Arteriosclerosis of arterial coronary artery bypass graft , Coronary arteriosclerosis Take 1 tablet (20 mg total) by mouth once daily at bedtime. 90 tablet 3 02/21/2025 ActiveStart: 06-11-2024 End: 02-32-8081hsqj 1 tablet by mouth once daily at bedtimeatorvastatin (LIPITOR) 20 mg tablet Indications: Bradycardia , Essential hypertension , Mixed hyperlipidemia , Arteriosclerosis of arterial coronary artery bypass graft , Coronary arteriosclerosis Take 1 tablet (20 mg total) by mouth once daily at bedtime. 90 tablet 3 06/11/2024 02/21/2025 Discontinued (Reorder)Start: 04-16-2024 End: 12-86-8644kmml 1 tablet by mouth once daily at [...] EVENING 90 tablet 03/29/2024 ActiveStart: 03-29-2023 End: 73-02-6017usva 1 tablet by mouth once daily at bedtimeatorvastatin (LIPITOR) 20 mg tablet Indications: Bradycardia , Essential hypertension , Mixed hyperlipidemia , Arteriosclerosis of arterial coronary artery bypass graft , Coronary arteriosclerosis Take 1 tablet (20 mg total) by mouth once daily at bedtime. 04/16/2024 Activeazelastine hydrochloride 0.137 mg/actuat metered dose nasal spray (6 sources)Histamine-1 Receptor AntagonistStart: 67-31-7805pexw 1 spray(s) nasal route in the morningazelastine (ASTELIN) 137 mcg (0.1 %) nasal spray Indications: Nasal congestion Administer 1 spray into each nostril in the morning and 1 spray before bedtime. Use in each nostril as directed. 30 mL 12 02/04/2025 Activecelecoxib 200 mg oral capsule (14 sources)Nonsteroidal Anti-inflammatory DrugStart: 70-80-4726eerw 1 capsule by mouth in the morningcelecoxib [...] mg oral tablet (20 sources)P2Y12 Platelet InhibitorStart: 21-92-5874dczx 1 tablet by mouth in the morningclopidogreL (PLAVIX) 75 mg tablet Indications: Essential hypertension , Mixed hyperlipidemia , Bradycardia , Arteriosclerosis of arterial coronary artery bypass graft , Coronary arteriosclerosis Take1 tablet (75 mg total) by mouth in the morning. 90 tablet 3 02/21/2025 ActiveStart: 06-11-2024 End: 91-44-5072xewd 1 tablet by mouth in the morningclopidogreL (PLAVIX) 75 mg tablet Indications: Bradycardia , Essential hypertension , Mixed hyperlipidemia , Arteriosclerosis of arterial coronary artery bypass graft , Coronary arteriosclerosis Take1 tablet (75 mg total) by mouth in the morning. 90 tablet 3 06/11/2024 02/21/2025 Discontinued (Reorder)Start: 04-16-2024 End: 21-75-5916rzgk 1 tablet by mouth in the morningclopidogreL (PLAVIX) 75 mg tablet Indications: Bradycardia , Essential hypertension , Mixed hyperlipidemia , Arteriosclerosis of arterial coronary artery bypass graft , Coronary arteriosclerosis Take1 tablet (75 mg total) by mouth in the morning. 90 tablet 3 04/16/2024 06/08/2024 Discontinued (Reorder)Start: 53-58-0893dpowjpsztxO (PLAVIX) 75 mg tablet Indications: Arteriosclerosis of arterial coronary artery bypass graft , Essential hypertension , Coronary arteriosclerosis , Mixed hyperlipidemia , Bradycardia TAKE1 TABLET EVERY MORNING 90 tablet 03/29/2024 ActiveStart: 03-29-2023 End: 25-71-3819olvd 1 tablet by mouth in the morningclopidogreL (PLAVIX) 75 mg tablet Indications: Bradycardia , Essential hypertension , Mixed hyperlipidemia , Arteriosclerosis of arterial coronary artery bypass graft , Coronary arteriosclerosis Take1 tablet (75 mg total) by mouth in the morning. 90 tablet 3 04/16/2024 Activeezetimibe 10 mg oral tablet (20 sources)Dietary Cholesterol Absorption InhibitorStart: 36-56-7501qxeq 1 tablet by mouth in the morningezetimibe (ZETIA) 10 mg tablet Indications: Essential hypertension , Mixed hyperlipidemia , Bradycardia , Arteriosclerosis of arterial coronary artery bypass graft , Coronary arteriosclerosis Take 1 t ablet (10 mg total) by mouth in the morning. 90 tablet 3 02/21/2025 ActiveStart: 06-11-2024 End: 50-64-2452miut 1 tablet by mouth in the morningezetimibe (ZETIA) 10 mg tablet Indications: Bradycardia , Essential hypertension , Mixed hyperlipidemia , Arteriosclerosis of arterial coronary artery bypass graft , Coronary arteriosclerosis Take 1 tablet (10 mg total) by mouth in the morning. 90 tablet 3 06/11/2024 02/21/2025 Discontinued (Reorder)Start: 04-16-2024 End: 77-95-9132xmgo 1 tablet by mouth in the morningezetimibe (ZETIA) 10 mg tablet Indications: Bradycardia , Essential hypertension , Mixed hyperlipidemia , Arteriosclerosis of arterial coronary artery bypass graft , Coronary arteriosclerosis Take 1 tablet (10 mg total) by mouth in the morning. 04/16/2024 06/08/2024 Discontinued (Reorder)Start: 77-50-3341ksetbnkzx (ZETIA) 10 mg tablet Indications: Arteriosclerosis of arterial coronary artery bypass graft , Essential hypertension , Coronary arteriosclerosis , Mixed hyperlipidemia , Bradycardia TAKE 1 TABLET EVERY MORNING 90 tablet 03/29/2024 ActiveStart: 03-29-2023 End: 25-67-2417hfxa 1 tablet by mouth in the morningezetimibe (ZETIA) 10 mg tablet Indications: Bradycardia , Essential hypertension , Mixed hyperlipidemia , Arteriosclerosis of arterial coronary artery bypass graft , Coronary arteriosclerosis Take 1 tablet (10 mg total) by mouth in the morning. 04/16/2024 Activefamotidine 40 mg oral tablet (6 sources)Histamine-2 Receptor AntagonistStart: 63-35-4473lzgj 1 tablet by mouth in the morning, then take 1 tablet by mouth at bedtimefamotidine (PEPCID) 40 mg tablet Indications: Globus sensation , Laryngopharyngeal reflux (LPR) Take 1 tablet (40 mg total) by mouth in the morning and 1 tablet (40 mg total) before bedtime. 60 tablet 02/04/2025 Activefluticasone propionate 0.05 mg/actuat metered dose nasal spray (20 sources)CorticosteroidStart: 87-69-4366fpgk 2 spray(s) nasal route in the morningfluticasone propionate (FLONASE) 50 mcg/actuation nasal spray Indications: Nasal congestion Administer 2 sprays into each nostril in the morning. 16 g 11 02/04/2025 ActiveStart: 09-16-2022 End: 57-92-6028fsyoehtaaqq propionate (FLONASE) 50 mcg/actuation nasal spray Indications: Seasonal allergic rhinitis, unspecified trigger Administer 1 spray into each nostril as needed for rhinitis or allergies. 16g 2 06/14/2023 Active furosemide 20 mg oral tablet (2 sources)Loop DiureticStart: 04-72-3996uthhpzhfta (LASIX) 20 mg tablet Take 1 tablet (20 mg total) by mouth as needed (For leg swelling). 30 tablet 11 02/21/2025 ActiveinFLIXimab 100 mg injection (20 sources)Tumor Necrosis Factor BlockerinFLIXimab (REMICADE) 10 mg/mL injection Infuse into a venous catheter. Every 16 weeks -700 mg Active latanoprost 0.05 mg/ml ophthalmic solution (2 sources)Prostaglandin AnalogStart: 18-48-8107hhtz 1 drop(s) into the eye(s) in the morninglatanoprost (XALATAN) 0.005 % ophthalmic solution Administer 1 drop to both eyes in the morning. 02/04/2025 Activelosartan potassium 100 mg oral tablet (20 sources)Angiotensin 2 Receptor BlockerStart: 03-74-3220lifz 1 tablet by mouth in the morninglosartan (COZAAR) 100 mg tablet Indications: Essential hypertension , Mixed hyperlipidemia , Bradycardia , Arteriosclerosis of arterial coronary artery bypass graft , Coronary arteriosclerosis Take 1tablet (100 mg total) by mouth in the morning. 90 tablet 3 02/21/2025 ActiveStart: 06-11-2024 End: 48-90-4249fjej 1 tablet by mouth in the morninglosartan (COZAAR) 100 mg tablet Indications: Bradycardia , Essential hypertension , Mixed hyperlipidemia , Arteriosclerosis of arterial coronary artery bypass graft , Coronary arteriosclerosis Take 1tablet (100 mg total) by mouth in the morning. 90 tablet 3 06/11/2024 02/21/2025 Discontinued (Reorder)Start: 04-16-2024 End: 19-18-6620wqjf 1 tablet by mouth in the morninglosartan (COZAAR) 100 mg tablet Indications: Bradycardia , Essential hypertension , Mixed hyperlipidemia , Arteriosclerosis of arterial coronary artery bypass graft , Coronary arteriosclerosis Take 1tablet (100 mg total) by mouth in the morning. 04/16/2024 06/08/2024 Discontinued (Reorder)Start: 22-35-9414gvedqfew (COZAAR) 100 mg tablet Indications: Arteriosclerosis of arterial coronary artery bypass graft , Essential hypertension , Coronary arteriosclerosis , Mixed hyperlipidemia , Bradycardia TAKE 1TABLET EVERY MORNING 90 tablet 03/29/2024 ActiveStart: 03-29-2023 End: 66-78-6023svsw 1 tablet by mouth in the morninglosartan (COZAAR) 100 mg tablet Indications: Bradycardia , Essential hypertension , Mixed hyperlipidemia , Arteriosclerosis of arterial coronary artery bypass graft , Coronary arteriosclerosis Take 1tablet (100 mg total) by mouth in the morning. 04/16/2024 Activemagnesium oxide 400 mg oral tablet (20 sources)Start: 77-38-6074blsq 1 tablet by mouth in the morningmagnesium oxide (MAGOX) 400 mg tablet Indications: Arteriosclerosis of arterial coronary artery bypass graft , Stable angina , Essential hypertension , Coronary arteriosclerosis , Mixed hyperlipidemia , Bradycardia Take 1 tablet (400 mg total) by mouth in the morning. 90 tablet 3 03/29/2023 Activenitroglycerin 0.4 mg sublingual tablet (20 sources)Nitrate VasodilatorStart: 40-40-3072qzzhdwwaopnzn (NITROSTAT) 0.4 MG SL tablet Indications: Bradycardia , Essential hypertension , Mixed hyperlipidemia , Arteriosclerosis of arterial coronary artery bypass graft , Stable angina , Coronary arteriosclerosis Place 1 tablet (0.4 mg total) under the tongue every 5 (five) minutes as neededfor chest pain. 25 tablet 3 02/25/2025 ActiveStart: 03-29-2023 End: 21-09-9446jmjabyhqzcdhy (NITROSTAT) 0.4 MG SL tablet Indications: Bradycardia , Essential hypertension , Mixed hyperlipidemia , Arteriosclerosis of arterial coronary artery bypass graft , Stable angina , Coronary arteriosclerosis Place 1 tablet (0.4 mg total) under the tongue every 5 (five) minutes as neededfor chest pain. 25 tablet 3 04/16/2024 02/25/2025 Discontinued (Reorder)omeprazole 20 mg delayed release oral capsule (20 sources)Proton Pump Inhibitortake 1 capsule by mouth in the morning omeprazole (PriLOSEC) 20 mg capsule Take 1 capsule (20 mg total) by mouth in the morning. Activepregabalin 50 mg oral capsule (14 sources)Start: 40-24-9529xroh 1 capsule by mouth once daily at bedtime pregabalin (LYRICA) 50 mg capsule Indications: Peripheral polyneuropathy Take 1 capsule (50 mg total) by mouth once daily at bedtime. 30 capsule 09/13/2024 ActivetiZANidine 4 mg oral tablet (14 sources)Central alpha-2 Adrenergic AgonistStart: 06-05-2024 End: 54-46-0782nvPBMxixjk (ZANAFLEX) 4 mg tablet 06/05/2024 02/21/2025 Discontinuedtriamcinolone acetonide 1 mg/ml topical cream (20 sources)CorticosteroidStart: 98-93-8434cmqvndoqlvkcq (KENALOG) 0.1 % cream 02/11/2022 ActiveStart: 47-33-3809eptxngpqgylfn (KENALOG) 0.1 % cream APPLY TO AFFECTED AREA TWICE A DAY NEEDED 02/11/2022 Activevitamin b12 1 mg oral tablet (20 sources)Vitamin T20iyav 1 tablet by mouth in the morningcyanocobalamin (vitamin B-12) 1000 MCG tablet Take 1 tablet (1,000 mcg total) by mouth in the morning. Activezinc gluconate 50 mg oral tablet (20 sources)take 0.5 tablet by mouth in the morningzinc gluconate 50 mg tablet Take 0.5 tablets (25 mg total) by mouth in the morning. Active Problems Active Problems Problem ClassificationProblemDateDocumented DateEpisodic/ChronicCardiac dysrhythmias (20 sources)Multiple premature ventricular complexes; Translations: [Ventricular premature depolarization]Onset: 438166-35-2633PwzgcwoTkfpzvs dysrhythmias (8 sources)Bradycardia; Translations: [Bradycardia, unspecified]Onset: 274897-63-3395KdydyplnOafboderrccw of device; implant or graft (20 sources)Atherosclerosis of coronary artery bypass graft(s) without angina pectoris; Translations: [Arteriosclerosis of arterial coronary artery bypass graft]Onset: 66-41-9972ZrcndztLbileqnhru disorders (2 sources)Mobitz type I incomplete atrioventricular block; Translations: [Atrioventricular block, second degree]Onset: hronic Coronary atherosclerosis and other heart disease (20 sources)Stable angina; Translations: [Stable angina]Onset: 11-05-2016 58-79-2914TfnongiMchbldld atherosclerosis and other heart disease (1 source)Presence of aortocoronary bypass graft; Translations: [Presence of aortocoronary bypass graft]Onset: 32-45-9526CuqwfwglQoyisjlph of lipid metabolism (20 sources)Mixed hyperlipidemia; Translations: [Hyperlipidemia]Onset: 926799-91-7474YxaaxqyBqovrpoxrr disorders (2 sources)Laryngopharyngeal reflux; Translations: [Gastro-esophageal reflux disease without esophagitis]Onset: 704945-02-4203BgwkgqzDcfeyquyt hypertension (20 sources)Essential (primary) hypertension; Translations: [Essential hypertension]Onset: 477358-14-2841WrnqdxdRwahxys and fatigue (2 sources)Fatigue; Translations: [Chronic fatigue, unspecified]Onset: 506690-85-2787DcxxsimWmdvcdiqh or stenosis of precerebral arteries (4 sources)Bilateral stenosis of carotid arteries; Translations: [Occlusion and stenosis of bilateral carotid arteries]Onset: 910996-27-9639Knzjixl Osteoarthritis (20 sources)Osteoarthritis of knee; Translations: [Osteoarthritis of knee, unspecified]Onset: 656142-11-7726VvlwbciKmcjo connective tissue disease (20 sources)Artificial knee joint present; Translations: [Presence of unspecified artificial knee joint]Onset: 947147-75-5969WhqwflpWzcjx diseases of veins and lymphatics (1 source)Lymphedema; Translations: [Lymphedema, not elsewhere classified] 16-03-8104TlruzpoSzagt inflammatory condition of skin (20 sources)Psoriatic arthritis; Translations: [Arthropathic psoriasis, unspecified]Onset: 560823-34-9728PvpnwpsQdzyj inflammatory condition of skin (1 source)Arthropathic psoriasis, unspecified; Translations: [Arthropathic psoriasis, unspecified]Onset: 72-81-1006VxfrocvSvaam lower respiratory disease (1 source)Snoring; Translations: [Snoring]51-71-9439VjkcrseyJgint lower respiratory disease (1 source)Snoring; Translations: [Snoring]Onset: 24-01-0166LnonrcbsJhlvp nervous system disorders (1 source)Polyneuropathy; Translations: [Polyneuropathy, unspecified]09-13-2024 ChronicOther nervous system disorders (2 sources)Idiopathic peripheral neuropathy; Translations: [Hereditary and idiopathic neuropathy, unspecified]48-90-5277WgnlpdfEcpfv nervous system disorders (1 source)Polyneuropathy, unspecified; Translations: [Polyneuropathy, unspecified]Onset: 85-98-7290BqricaxJurfs nervous system disorders (2 sources)Polyneuropathy in diseases classified elsewhere; Translations: [Polyneuropathy in diseases classified elsewhere]Onset: 30-10-3373PfkzddnQvnav nervous system disorders (2 sources)Numbness and tingling sensation of skin; Translations: [Anesthesia of skin]72-82-7622EqholitmOjksu nervous system disorders (1 source)ClaudicationOnset: 82-09-2685DieftzquYrtdh nutritional; endocrine; and metabolic disorders (20 sources)Obesity; Translations: [Obesity, unspecified]Onset: 03-15-2022 79-86-4022FniqtxwUziih nutritional; endocrine; and metabolic disorders (1 source)Hypomagnesemia; Translations: [Hypomagnesemia]99-61-7368GtcdtbuIkcip nutritional; endocrine; and metabolic disorders (2 sources)Body mass index 30+ - obesity; Translations: [Body mass index (BMI) 38.0-38.9, adult]12-22-3621TrmaufkLwqav nutritional; endocrine; and metabolic disorders (1 source)Body mass index (BMI) 38.0-38.9, adult; Translations: [Body mass index (BMI) 38.0-38.9, adult]Onset: 39-93-9426TmkbfrjXetjw nutritional; endocrine; and metabolic disorders (1 source)Obesity, unspecified; Translations: [Obesity, unspecified]Onset: 50-33-8448HnuoukcXlfib upper respiratory disease (1 source)Seasonal allergic rhinitis; Translations: [Other seasonal allergic rhinitis]16-12-9486HorzingTemxr upper respiratory disease (1 source)Nasal discharge; Translations: [Other specified disorders of nose and nasal sinuses]49-42-7693IpeirwooGdezy upper respiratory disease (1 source)Feeling of lump in throat; Translations: [Globus sensation]02-04-2025 EpisodicOther upper respiratory disease (1 source)Nasal congestion; Translations: [Nasal congestion]01-01-2684Htnxdaje Other upper respiratory disease (1 source)Other specified disorders of nose and nasal sinuses; Translations: [Other specified disorders of nose and nasal sinuses]Onset: 28-37-4554Dvpamvmw Other upper respiratory disease (1 source)Nasal congestion; Translations: [Nasal congestion]Onset: 02-04-2025 EpisodicResidual codes; unclassified (20 sources)Obstructive sleep apnea syndrome; Translations: [Obstructive sleep apnea (adult) (pediatric)]Onset: 811730-14-9162ZgtqjfyLjejanol codes; unclassified (2 sources)Obstructive sleep apnea (adult) (pediatric); Translations: [Obstructive sleep apnea (adult) (pediatric)]Onset: 43-77-1573QbgmtajLeprgxfu codes; unclassified (1 source)Sleep apneaOnset: 00-84-7248CypjijnAmjyizqn codes; unclassified (2 sources)Bilateral lower limb edema; Translations: [Localized edema]12-07-2024 EpisodicResidual codes; unclassified (2 sources)Localized edema; Translations: [Localized edema]Onset: 11-26-2024 EpisodicResidual codes; unclassified (1 source)EdemaOnset: 52-21-9300KmdkcdrqEgrhcxsf codes; unclassified (2 sources)Other specified health status; Translations: [Other specified conditions influencing health status]Onset: 409697-95-1777Bobctptj Respiratory failure; insufficiency; arrest (adult) (1 source)Respiratory failure; insufficiency; arrest (adult)Onset: 01-14-2025 Rheumatoid arthritis and related disease (1 source)Rheumatoid arthritis without rheumatoid factor, multiple sites; Translations: [Rheumatoid arthritiswithout rheumatoid factor, multiple sites] Onset: 78-25-5210OhjhdldOsqeuqvcnxlt (1 source)Carotid Artery DiseaseOnset: 53-11-3039Wzbuaqassfmb (1 source)Varicose VeinsOnset: 40-12-5762Yqkajqpypgqw (1 source)Extremity PainOnset: 46-62-5083Gufuiuvmdkaw (1 source)Peripheral NeuropathyOnset: 46-72-3597Jzrwbjgrwlcq (1 source)Foreign body sensation, throat; Translations: [Foreign body sensation, throat]Onset: 02-04-2025 Past or Other Problems Problem ClassificationProblemDateDocumented DateEpisodic/Chronic Administrative/social admission (1 source)Repeated prescription; Translations: [Encounter for issue of repeat prescription]01-38-3549QuuvsttsHvzlqhmz mellitus without complication (20 sources)Impaired fasting glycemia; Translations: [Impaired fasting glucose] Onset: 637018-99-8017ObaidpwwKggk disorders (20 sources)Mood disordersOnset: 06-14-2023 Resolved: Nausea and vomiting (1 source)Nausea with vomiting, unspecified; Translations: [NAUSEA WITH VOMITING UNSPECIFIED]Onset: 74-80-5082UditkymnRghitfupbox deficiencies (20 sources)Neuropathy due to vitamin B12 deficiency; Translations: [Deficiency of other specified B group vitamins]Onset: 726259-38-1207UjzihegjVzpht aftercare (1 source)half-way (current) use of aspirin; Translations: [MANAGING CONSULTANT CURRENT USE OF ASPIRIN]Onset: 94-41-1539OjcbzarvItkcr aftercare (1 source)Other mcc (current) drug therapy; Translations: [OTH LONG-TERM CURRENT DRUG THERAPY]Onset: 41-53-3502CcsvslnsKtbkj diseases of veins and lymphatics (19 sources)Venous insufficiency of leg; Translations: [Venous insufficiency (chronic) (peripheral)]Onset: 795751-04-6799YegqjrjaZfvyl diseases of veins and lymphatics (2 sources)Venous insufficiency (chronic) (peripheral); Translations: [Venous insufficiency (chronic) (peripheral)]Onset: 63-65-5396NitzfhubYgjoy screening for suspected conditions (not mental disorders or infectious disease) (9 sources)Ambulatory ECG abnormal; Translations: [Abnormal electrocardiogram [ECG] [EKG]]Onset: 181621-21-6140FdctnjlaDatnyaizea and visceral atherosclerosis (20 sources)Peripheral vascular disease; Translations: [Peripheral vascular disease, unspecified]Onset: 11-20-2013 Resolved: [id number]; thrombophlebitis and thromboembolism (20 sources)Phlebitis and thrombophlebitis of superficial vessels of right lower extremity; Translations: [Phlebitis and thrombophlebitis of superficial vessels of left lower extremity]Onset: 15-43-3796LedtvccyLjagtax (4 sources)Syncope and collapse; Translations: [SYNCOPE AND COLLAPSE]Onset: 80-56-0350AvxyiymzTyeuapng veins of lower extremity (15 sources)Varicose veins of bilateral lower extremities with pain; Translations: [Venous varices]Onset: 59-03-1758QxyckjwqGarcf infection (1 source)Viral infection, unspecified; Translations: [VIRAL INFECTION UNSPECIFIED]Onset: 25-77-9296Haetcftb Results Test NameValueInterpretationReference RangeFacilityAlanine aminotransferase [Enzymatic activity/volume] in Serum or PlasmaOrdered By: Prince Velazquez on 79-98-8138LCH [Catalytic activity/Vol]25 U/LNormal7-52[facility] HospitalComment on above:Performed By: #### MG, LIPID #### [place] [address] USAAlbumin [Mass/volume] in Serum or Plasma by Bromocresol green (BCG) dye binding methoOrdered By: Prince Velazquez on 43-20-3197Oyvwvuj BCG dye [Mass/Vol]4.3 g/dL3.5-5.7FCleveland Clinic Mentor HospitalAlkaline phosphatase [Enzymatic activity/volume] in Serum or PlasmaOrdered By: Prince Velazquez on 06-85-4210VES [Catalytic activity/Vol]60 U/QGdziza14-630NzbxmdfckBucyrus Community HospitalComment on above:Result Comment: PERFORMED BY: [place] [address] PATHOLOGIST HAND GRINDER RODNEY MELVIN M.D.Performed By: #### MG, LIPID #### [facility] [address] [place] [address] USAAspartate aminotransferase [Enzymatic activity/volume] in Serum or PlasmaOrdered By: Prince Wallrow on 40-73-0429UAN [Catalytic activity/Vol]27 U/QBpjimf96-82QtrqpntfhBucyrus Community HospitalComment on above: Performed By: #### MG, LIPID #### [facility] [address] [place] [address] USABasophils [#/volume] in Blood by Automated countOrdered By: Prince Wallrow on 85-10-2205Gauobcavp (Bld) [#/Vol]0.1 10*3/uLNormal0.0-0.2 [facility] HospitalComment on above:Performed By: #### MG, LIPID #### [place] [address] USABasophils/100 leukocytes in Blood by Automated count Ordered By: Prince Wallrow on 46-79-5089Sahqflyxw/100 WBC (Bld)0.7 %Normal. [facility] HospitalComment on above:Performed By: #### MG, LIPID #### [place] [address] USABilirubin.total [Mass/volume] in Serum or PlasmaOrdered By: Prince Caroline on 85-97-2801Hxjqdqofo [Mass/Vol]0.6 mg/dLNormal0.3-1.0 [facility] HospitalComment on above:Performed By: #### MG, LIPID #### [place] [address] USACalcium [Mass/volume] in Serum or PlasmaOrdered By: Prince Caroline on 70-18-6799Eszojbk [Mass/Vol]9.1 mg/dLNormal8.6-10.3FCleveland Clinic Mentor HospitalComment on above:Performed By: #### MG, LIPID #### [place] [address] USACarbon dioxide, total [Moles/volume] in Serum or Plasma Ordered By: Prince Velazquez on 68-58-1949YX9 [Moles/Vol]25.8 mmol/LNormal 21.0-31.0[facility] HospitalComment on above:Performed By: #### MG, LIPID #### [place] [address] USAChloride [Moles/volume] in Serum or PlasmaOrdered By: Prince Velazquez on 91-40-9889Tigefudv [Moles/Vol]104 mmol/MWqctdz70-237BpiqcuetwBucyrus Community HospitalComment on above:Performed By: #### MG, LIPID #### [place] [address] USAComplete Blood Count Auto Diffon 97-54-9321Wcpf Corpuscular HGB Conc33.8 g/vHPehief91.5-35.6The [facility] Health Physician GroupComment on above:Performed By: #### MG, LIPID #### [place] [address] USANRBC%0.2 /100{WBC}Normal0-0.5[facility] Comment on above:Performed By: #### MG, LIPID #### [place] [address] USAWhite Blood Count7.6 [CFU]/mLNormal4.1-10.5The [facility] Physician GroupComment on above:Performed By: #### MG, LIPID #### [place] [address] USAComprehensive Metabolic Panelon 87-30-3958Uxtqxij [Mass/Vol]4.3 g/dLNormal3.5-5.7The [facility] Physician GroupComment on above: Performed By: #### MG, LIPID #### [place] [address] USAGFR/1.73 sq M.predicted MDRD (S/P/Bld) [Vol rate/Area] mL/min/{1.73_m2}NormalThe Duke Health Physician GroupComment on above:Performed By: #### MG, LIPID #### [place] [address] USACreatinine [Mass/volume] in Serum or PlasmaOrdered By: Prince Wallrow on 31-49-4626Hhkytlwbvr [Mass/Vol]1.17 mg/dLNormal0.70-1.30 [facility] HospitalComment on above:Performed By: #### MG, LIPID #### [place] [address] USAEosinophils [#/volume] in Blood by Automated countOrdered By: Prince Caroline on 15-22-5795Fzrbwhhymfc (Bld) [#/Vol]0.2 10*3/uLNormal 0.0-0.45[facility] HospitalComment on above:Performed By: #### MG, LIPID #### [place] [address] USAEosinophils/100 leukocytes in Blood by Automated count Ordered By: Prince Velazquez on 07-24-6963Aidpbvdcoad/100 WBC (Bld)2.9 %Normal. [facility] HospitalComment on above:Performed By: #### MG, LIPID #### [place] [address] USAErythrocyte Sedimentation Rateon 11-07-7139GGW (Bld) [Velocity]26 mm/hHigh0-19The [facility] Physician GroupComment on above:Result Comment: PERFORMED BY: [place] [address] PATHOLOGIST HAND GRINDER RODNEY MELVIN M.D.Performed By: #### MG, LIPID #### [place] [address] USAErythrocyte distribution width [Ratio] by Automated count Ordered By: Prince Caroline on 65-50-0752Fqyexiisigg distribution width (RBC) [Ratio]13.8 %Wanfjz11.0-14.8[facility] HospitalComment on above: Performed By: #### MG, LIPID #### [place] [address] USAErythrocyte sedimentation rate by Photometric method Ordered By: Prince Velazquez on 35-26-9488UVS Photometric method (Bld) [Velocity] 26 mm/hrHigh0-19[facility] HospitalErythrocytes [#/volume] in Blood by Automated countOrdered By: Prince Caroline on 76-21-7609ZWZ (Bld) [#/Vol]4.79 10*6/uLNormal3.90-5.60[facility] HospitalComment on above:Performed By: #### MG, LIPID #### [facility] [address] [place] [address] USAGlomerular filtration rate [Volume Rate/Area] in Serum, Plasma or Blood by CreatinineOrdered By: Prince Velazquez on 63-04-4843Apebhosdbn filtration rate [Volume Rate/Area] in Serum, Plasma or Blood by Creatinine> 60.0 mL/MinBucyrus Community HospitalGlucose [Mass/volume] in Serum or Plasma Ordered By: Prince Velazquez on 78-21-9070Uqizzmd [Mass/Vol]88 mg/hGLqzlzm11-508 [facility] HospitalComment on above:ADA recommended reference rangeRandom Glucose Reference [...] reference rangePerformed By: #### MG, LIPID #### [facility] [address] [place] [address] USAHematocrit [Volume Fraction] of Blood by Automated count Ordered By: Princelyudmila Velazquez on 36-55-9037Zfgebmvwfj (Bld) [Volume fraction]44.5 % Hxlkvp71.8-50.0[facility] HospitalComment on above:Performed By: #### MG, LIPID #### [facility] [address] [place] [address] USAHemoglobin [Mass/volume] in BloodOrdered By: Prince Velazquez on 89-77-3102Rfufuxzrvf (Bld) [Mass/Vol]15.0 g/nFRfnrbb08.0-17.0[facility] HospitalComment on above:Performed By: #### MG, LIPID #### [facility] [address] [place] [address] USALeukocytes [#/volume] corrected for nucleated erythrocytes in Blood by Automated counOrdered By: Prince Wallrow on 15-65-5834AFY corrected for nucl RBC Auto (Bld) [#/Vol]7.6 10*3/uL4.1-10.5FCleveland Clinic Mentor HospitalLeukocytes [#/volume] in Blood by Automated countOrdered By: Prince Caroline on 74-25-5727ZLB (Bld) [#/Vol]7.6 10*3/uLNormal4.1-10.5FCleveland Clinic Mentor HospitalComment on above:Performed By: #### MG, LIPID #### [facility] [address] [place] [address] USALymphocytes [#/volume] in Blood by Automated countOrdered By: Prince Caroline on 02-44-2682Nnwuhourcvd (Bld) [#/Vol]2.6 10*3/uLNormal 1.00-4.8[facility] HospitalComment on above:Performed By: #### MG, LIPID #### [place] [address] USALymphocytes/100 leukocytes in Blood by Automated count Ordered By: Prince Caroline on 38-81-1375Cntmhcfxpra/100 WBC (Bld)33.5 %Normal. [facility] HospitalComment on above:Performed By: #### MG, LIPID #### [facility] [address] [place] [address] USAMCH [Entitic mass] by Automated countOrdered By: Princelyudmila Velazquez on 79-77-3502AOD (RBC) [Entitic mass]31.4 kuIopydr69.5-35.2FCleveland Clinic Mentor HospitalComment on above:Performed By: #### MG, LIPID #### [facility] [address] Auto (RBC) [Mass/Vol]Ordered By: Prince Velazquez on 15-92-3432DUEN (RBC) [Mass/Vol]33.8 g/dL32.5-35.6FCleveland Clinic Mentor HospitalMCV [Entitic volume] by Automated countOrdered By: Prince Velazquez on 92-50-5376PJR (RBC) [Entitic vol]92.8 nDDetdcz80.5-101[facility] HospitalComment on above:Performed By: #### MG, LIPID #### [facility] [address] [place] [address] USAMonocytes [#/volume] in Blood by Automated countOrdered By: Prince Velazquez on 29-58-3003Zgphobjui (Bld) [#/Vol]0.9 10*3/uLHigh0.0-0.8 [facility] HospitalComment on above:Performed By: #### MG, LIPID #### [facility] [address] [place] [address] USAMonocytes/100 leukocytes in Blood by Automated count Ordered By: Prince Velazquez on 29-27-8779Jeagkagea/100 WBC (Bld)11.4 %Normal. [facility] HospitalComment on above:Performed By: #### MG, LIPID #### [facility] [address] [place] [address] USANeutrophils [#/volume] in Blood by Automated countOrdered By: Prince Velazquez on 29-47-4077Ctkccmhwbdi (Bld) [#/Vol]3.9 10*3/uLNormal 1.8-7.7FCleveland Clinic Mentor HospitalComment on above:Performed By: #### MG, LIPID #### [facility] [address] [place] [address] USANeutrophils/100 leukocytes in Blood by Automated count Ordered By: Prince Velazquez on 93-88-0704Zfhwcbpuoxs/100 WBC (Bld)51.5 %Normal. [facility] HospitalComment on above:Performed By: #### MG, LIPID #### [place] [address] USANo Panel InformationOrdered By: Prince Velazquez on 86-05-6707Ehvpoybo Creatinine Clearance (ChemN/AFCleveland Clinic Mentor HospitalNucleated erythrocytes [Presence] in Blood by Automated countOrdered By: Prince Velazquez on 34-88-8036Shzdbimsv RBC Auto Ql (Bld)0.2 /100{WBC}0-0.5 [facility] HospitalPlatelet mean volume [Entitic volume] in Blood by Automated countOrdered By: Prince Velazquez on 75-32-2919Kyocfbdk mean volume (Bld) [Entitic vol]8.3 fLNormal6.6-10.1FCleveland Clinic Mentor HospitalComment on above:Performed By: #### MG, LIPID #### [place] [address] USAPlatelets [#/volume] in Blood by Automated countOrdered By: Prince Velazquez on 85-23-3908Gmtbfjnrq (Bld) [#/Vol]159 10*3/dZDdhnla350-180 [facility] HospitalComment on above:Performed By: #### MG, LIPID #### [place] [address] USAPotassium [Moles/volume] in Serum or PlasmaOrdered By: Prince Velazquez on 69-50-2983Xgbvnwjvx [Moles/Vol]4.3 mmol/LNormal3.5-5.1 [facility] HospitalComment on above:Performed By: #### MG, LIPID #### [place] [address] USAProtein [Mass/volume] in Serum or PlasmaOrdered By: Prince Velazquez on 37-06-2965Fnbqzmu [Mass/Vol]7.8 g/dLNormal6.4-8.9[facility] HospitalComment on above:Performed By: #### MG, LIPID #### [place] [address] USASerum globulin measurement by calculation (mass/volume) Ordered By: Prince Velazquez on 24-99-7448Abnwpxzi (S) [Mass/Vol]3.5 g/dLNormal [facility] HospitalComment on above:Performed By: #### MG, LIPID #### [facility] [address] [place] [address] USASerum or plasma albumin/globulin mass ratioOrdered By: Prince Wallrow on 09-27-5876Cbddqbu/Globulin [Mass ratio]1.2 {ratio}Normal [facility] HospitalComment on above:Performed By: #### MG, LIPID #### [place] [address] USASerum or plasma anion gap determinationOrdered By: Prince Caroline on 38-30-4665Fzhwv gap [Moles/Vol]10.5 mmol/LNormal6.0-15.0[facility] HospitalComment on above:Performed By: #### MG, LIPID #### [facility] [address] [place] [address] USASodium [Moles/volume] in Serum or PlasmaOrdered By: Princelyudmila Velazquez on 13-14-0679Noxcwp [Moles/Vol]136 mmol/BIuefrn152-248FbrntmvzuBucyrus Community HospitalComment on above:Performed By: #### MG, LIPID #### [place] [address] USAUrea nitrogen [Mass/volume] in Serum or PlasmaOrdered By: Prince Caroline on 56-94-4051Pkai nitrogen [Mass/Vol]18 mg/dLNormal7-25[facility] HospitalComment on above:Performed By: #### MG, LIPID #### [place] [address] USACT CTV ABD AND PELVISon 08-42-5971LB CTV ABD AND PELVISCT CTV ABD AND [...] Richard Mccurdy MD on 12/10/2024 1:40 PM IFamilia DO have personally reviewed the image(s) and agree with and/or edited the report Finalized by Familia Kerr DO on 12/10/2024 2:35 [facility] Carotid arteries - bilateralon 81-85-5091Ciruq: Plaque with no significant ICA spectral Doppler [...] internal carotid artery. Antegrade vertebral artery flow. [facility] SystemRadiology Study observation (narrative)[facility].doppler Extremity arteries - bilateral for physiologic artery study limitedon 55-79-6384Dyzuj: Essentially normal PVR waveform contour at the [...] Normal lower extremity DEBBIE examination at rest. [facility] SystemRadiology Study observation (narrative)[facility].doppler Lower extremity artery - bilateral on 31-70-5462Arpzc: Plaque and elevated proximal deep femoral artery [...] Hemodynamically significant stenosis of the superficial femoral artery.PM Ken Hurley MD - 12/06/2024 Right: Plaque [...] significant stenosis of the superficial femoral artery. [facility] CenterRad[facility] observation (narrative)[facility] CenterUS.doppler Lower extremity artery - bilateralOrdered By: Ken Costello on 24-31-9678FsvSkapdiDiley Ridge Medical Center Work Phone: [phone], SERUMon 34-04-5240Cpymazxyab [Mass/Vol] 1.16 mg/dLNormal0.60-1.30[facility] HospitalComment on above:Result Comment: METHOD TRACEABLE TO [facility] STANDARDPerformed By: #### CONSTRUCTION ENGINEER #### [facility] ([facility]) [address] [place] [address] VIRGFR/1.73 sq M.predicted among non-blacks MDRD (S/P/Bld) [Vol rate/Area]69 mL/min/{1.73_m2}Normal>=60[facility] HospitalComment on above:Result Comment: Reported eGFR is based on the CKD-EPI 2020 equation that does not use a race coefficient.Performed By: #### CONSTRUCTION ENGINEER #### [facility] ([facility]) [address] [place] [address] VIRCreatinine includes GFR, serumon 23-05-1359Mkcrdktnfb [Mass/Vol]1.16 mg/dL0.60 - 1.30 mg/dLDiley Ridge Medical CenterComment on above: METHOD TRACEABLE TO THE [facility] STANDARDEGFR Non-Race Asqdksmxk68In[facility] Fair Oaks HospitalComment on above:Reported eGFR is based on the CKD-EPI 2020 equation that does not use a race coefficient. Interpretation and review of laboratory resultsNoalWellSpan Waynesboro HospitalAlanine aminotransferase [Enzymatic activity/volume] in Serum or PlasmaOrdered By: Prince Velazquez on 15-50-8494BKG [Catalytic activity/Vol]23 U/LNormal7-52[facility] HospitalComment on above: Performed By: #### ESR, CBC, CMP #### [facility] [address] [place] [id number] USAAlbumin [Mass/volume] in Serum or Plasma by Bromocresol green (BCG) dye binding methoOrdered By: Prnice Velazquez on 55-11-7190Dfskbsk BCG dye [Mass/Vol]4.1 g/dL3.5-5.7FCleveland Clinic Mentor HospitalAlkaline phosphatase [Enzymatic activity/volume] in Serum or PlasmaOrdered By: Prince Velazquez on 85-72-0140QVH [Catalytic activity/Vol]57 U/HMpzlih24-650MxbbncuuhBucyrus Community HospitalComment on above:Result Comment: PERFORMED BY: [place] [address] PATHOLOGIST HAND GRINDER RODNEY MELVIN M.D.Performed By: #### ESR, CBC, CMP #### [place] [address] USAAspartate aminotransferase [Enzymatic activity/volume] in Serum or PlasmaOrdered By: Prince Velazquez on 66-49-1453PAN [Catalytic activity/Vol]26 U/EOkskyn80-19FmrpznyqxBucyrus Community HospitalComment on above: Performed By: #### ESR, CBC, CMP #### [facility] [address] [place] [address] USABasophils [#/volume] in Blood by Automated countOrdered By: Prince Velazquez on 92-51-8367Ypjhpqlhz (Bld) [#/Vol]0.0 10*3/uLNormal0.0-0.2 [facility] HospitalComment on above:Performed By: #### ESR, CBC, CMP #### [facility] [address] [place] [address] USABasophils/100 leukocytes in Blood by Automated count Ordered By: Prince Velazquez on 46-09-7069Coxegvmut/100 WBC (Bld)0.6 %Normal. [facility] HospitalComment on above:Performed By: #### ESR, CBC, CMP #### [facility] [address] [place] [address] USABilirubin.total [Mass/volume] in Serum or PlasmaOrdered By: Prince Wallrow on 58-10-3183Ofdyjchzl [Mass/Vol]0.6 mg/dLNormal0.3-1.0 [facility] HospitalComment on above:Performed By: #### ESR, CBC, CMP #### [place] [address] USACalcium [Mass/volume] in Serum or PlasmaOrdered By: Prince Caroline on 23-78-2384Xmgwjis [Mass/Vol]8.8 mg/dLNormal8.6-10.3FCleveland Clinic Mentor HospitalComment on above:Performed By: #### ESR, CBC, CMP #### [place] [address] USACarbon dioxide, total [Moles/volume] in Serum or Plasma Ordered By: Prince Caroline on 37-81-3451DE1 [Moles/Vol]22.7 mmol/LNormal 21.0-31.0[facility] HospitalComment on above:Performed By: #### ESR, CBC, CMP #### [place] [address] USAChloride [Moles/volume] in Serum or PlasmaOrdered By: Prince Caroline on 33-29-4358Slyzeesn [Moles/Vol]106 mmol/XZjpcqs75-450EqqsdsfikBucyrus Community HospitalComment on above:Performed By: #### ESR, CBC, CMP #### [place] [address] USAComplete Blood Count Auto Diffon 31-25-2747Woxy Corpuscular HGB Conc33.8 g/uKRarvff88.5-35.6The [facility] Medical CenterComment on above:Performed By: #### ESR, CBC, CMP #### [facility] [address] [place] [address] USANRBC%0.1 /100{WBC}Normal0-0.5[facility] Comment on above:Performed By: #### ESR, CBC, CMP #### [place] [address] USAWhite Blood Count6.3 [CFU]/mLNormal4.1-10.5The [facility] Medical CenterComment on above:Performed By: #### ESR, CBC, CMP #### [place] [address] USAComprehensive Metabolic Panelon 24-29-8128Uvkkvha [Mass/Vol]4.1 g/dLNormal3.5-5.7The [facility] Medical CenterComment on above: Performed By: #### ESR, CBC, CMP #### [place] [address] USAGFR/1.73 sq M.predicted MDRD (S/P/Bld) [Vol rate/Area] mL/min/{1.73_m2}NormalThe Delaware County Memorial HospitalComment on above:Performed By: #### ESR, CBC, CMP #### [place] [address] USACreatinine [Mass/volume] in Serum or PlasmaOrdered By: Prince Velazquez on 00-42-8052Tcetctnlnl [Mass/Vol]1.09 mg/dLNormal0.70-1.30 [facility] HospitalComment on above:Performed By: #### ESR, CBC, CMP #### [place] [address] USAEosinophils [#/volume] in Blood by Automated countOrdered By: Prince Velazquez on 15-58-0894Fadiblykjck (Bld) [#/Vol]0.2 10*3/uLNormal 0.0-0.45[facility] HospitalComment on above:Performed By: #### ESR, CBC, CMP #### [place] [address] USAEosinophils/100 leukocytes in Blood by Automated count Ordered By: Prince Velazquez on 04-44-8533Krbzurcpydo/100 WBC (Bld)3.6 %Normal. [facility] HospitalComment on above:Performed By: #### ESR, CBC, CMP #### [place] [address] USAErythrocyte Sedimentation Rateon 41-25-2002ZMI (Bld) [Velocity]15 mm/hNormal0-19The [facility] Physician GroupComment on above:Result Comment: PERFORMED BY: [place] [address] PATHOLOGIST HAND GRINDER RODNEY MELVIN M.D.Performed By: #### MG, LIPID #### [place] [address] USAErythrocyte distribution width [Ratio] by Automated count Ordered By: Prince Velazquez on 97-07-9402Ohrtaazwyit distribution width (RBC) [Ratio]14.0 %Vhffdh72.0-14.8[facility] HospitalComment on above: Performed By: #### ESR, CBC, CMP #### [place] [address] USAErythrocyte sedimentation rate by Photometric method Ordered By: Prince Velazquez on 00-32-9470MMI Photometric method (Bld) [Velocity] 15 mm/hr0-19[facility] HospitalErythrocytes [#/volume] in Blood by Automated countOrdered By: Prince Velazquez on 76-68-8503ARJ (Bld) [#/Vol]4.58 10*6/uLNormal3.90-5.60[facility] HospitalComment on above: Performed By: #### ESR, CBC, CMP #### [place] [address] USAGlucose [Mass/volume] in Serum or PlasmaOrdered By: Prince Velazquez on 64-78-5447Dpuubaj [Mass/Vol]110 mg/aFKnjj70-226YlaoaoypxBucyrus Community HospitalComment on above:ADA recommended reference rangeRandom Glucose Reference [...] rangePerformed By: #### ESR, CBC, CMP #### [facility] [address] [place] [address] USAHematocrit [Volume Fraction] of Blood by Automated count Ordered By: Prince Velazquez on 51-97-7959Wyovgtihuc (Bld) [Volume fraction]42.2 % Thwxki72.8-50.0[facility] HospitalComment on above:Performed By: #### ESR, CBC, CMP #### [place] [address] USAHemoglobin [Mass/volume] in BloodOrdered By: Prince Velazquez on 83-97-9647Difjnxugbx (Bld) [Mass/Vol]14.2 g/cWOsmtzl72.0-17.0[facility] HospitalComment on above:Performed By: #### ESR, CBC, CMP #### [place] [address] USALeukocytes [#/volume] corrected for nucleated erythrocytes in Blood by Automated counOrdered By: Prince Velazquez on 42-89-6610NXU corrected for nucl RBC Auto (Bld) [#/Vol]6.3 10*3/uL4.1-10.5FCleveland Clinic Mentor HospitalLeukocytes [#/volume] in Blood by Automated countOrdered By: Prince Velazquez on 64-75-7382GIH (Bld) [#/Vol]6.3 10*3/uLNormal4.1-10.5FCleveland Clinic Mentor HospitalComment on above:Performed By: #### ESR, CBC, CMP #### [facility] [address] [place] [address] USALymphocytes [#/volume] in Blood by Automated countOrdered By: Prince Velazquez on 29-69-6945Ucstkimfzzx (Bld) [#/Vol]2.3 10*3/uLNormal 1.00-4.8[facility] HospitalComment on above:Performed By: #### ESR, CBC, CMP #### [place] [address] USALymphocytes/100 leukocytes in Blood by Automated count Ordered By: Prince Velazquez on 44-72-0906Uveinyzyjrs/100 WBC (Bld)37.1 %Normal. [facility] HospitalComment on above:Performed By: #### ESR, CBC, CMP #### [address] [Entitic mass] by Automated countOrdered By: Prince Velazquez on 51-23-5518BNQ (RBC) [Entitic mass]31.1 heDbtwjt01.5-35.2FCleveland Clinic Mentor HospitalComment on above:Performed By: #### ESR, CBC, CMP #### [address] Auto (RBC) [Mass/Vol]Ordered By: Prince Velazquez on 77-26-9859UZUW (RBC) [Mass/Vol]33.8 g/dL32.5-35.6FCleveland Clinic Mentor HospitalMCV [Entitic volume] by Automated countOrdered By: Prince Velazquez on 05-05-6399OGZ (RBC) [Entitic vol]92.2 kNHaglls17.5-101[facility] HospitalComment on above:Performed By: #### ESR, CBC, CMP #### [facility] [address] [place] [address] USAMonocytes [#/volume] in Blood by Automated countOrdered By: Prince Velazquez on 96-03-1779Nwedzkypj (Bld) [#/Vol]0.7 10*3/uLNormal0.0-0.8 [facility] HospitalComment on above:Performed By: #### ESR, CBC, CMP #### [place] [address] USAMonocytes/100 leukocytes in Blood by Automated count Ordered By: Prince Velazquez on 30-75-7686Sdcsedfdx/100 WBC (Bld)10.7 %Normal. [facility] HospitalComment on above:Performed By: #### ESR, CBC, CMP #### [place] [address] USANeutrophils [#/volume] in Blood by Automated countOrdered By: Prince Velazquez on 45-71-5405Calrulpytyk (Bld) [#/Vol]3.0 10*3/uLNormal 1.8-7.7FCleveland Clinic Mentor HospitalComment on above:Performed By: #### ESR, CBC, CMP #### [place] [address] USANeutrophils/100 leukocytes in Blood by Automated count Ordered By: Prince Velazquez on 33-20-7563Sqqoqxfmvak/100 WBC (Bld)48.0 %Normal. [facility] HospitalComment on above:Performed By: #### ESR, CBC, CMP #### [place] [address] USANo Panel InformationOrdered By: Prince Velazquez on 52-16-8469Qztifgykf GFR (CKD-EPI)> 60.0 mL/MinBucyrus Community Hospital [facility] Creatinine Clearance (ChemN/AFCleveland Clinic Mentor HospitalNucleated erythrocytes [Presence] in Blood by Automated countOrdered By: Prince Velazquez on 89-89-1837Wowamwcfw RBC Auto Ql (Bld)0.1 /100{WBC}0-0.5FCleveland Clinic Mentor HospitalPlatelet mean volume [Entitic volume] in Blood by Automated count Ordered By: Prince Velazquez on 75-05-4906Atrykdbm mean volume (Bld) [Entitic vol] 8.3 fLNormal6.6-10.1FCleveland Clinic Mentor HospitalComment on above:Performed By: #### ESR, CBC, CMP #### [place] [address] USAPlatelets [#/volume] in Blood by Automated countOrdered By: Princelyudmila Velazquez on 53-28-7506Nuynlrvsb (Bld) [#/Vol]160 10*3/eNBxioib529-958 [facility] HospitalComment on above:Performed By: #### ESR, CBC, CMP #### [facility] [address] [place] [address] USAPotassium [Moles/volume] in Serum or PlasmaOrdered By: Prince Velazquez on 71-69-1358Eqqjtjayk [Moles/Vol]3.9 mmol/LNormal3.5-5.1 [facility] HospitalComment on above:Performed By: #### ESR, CBC, CMP #### [place] [address] USAProtein [Mass/volume] in Serum or PlasmaOrdered By: Prince Velazquez on 02-63-1001Gtijtot [Mass/Vol]7.1 g/dLNormal6.4-8.9[facility] HospitalComment on above:Performed By: #### ESR, CBC, CMP #### [facility] [address] [place] [address] USASerum globulin measurement by calculation (mass/volume) Ordered By: Prince Velazquez on 49-48-8135Mgpjsama (S) [Mass/Vol]3.0 g/dLNormal [facility] HospitalComment on above:Performed By: #### ESR, CBC, CMP #### [facility] [address] [place] [address] USASerum or plasma albumin/globulin mass ratioOrdered By: Prince Velazquez on 99-31-9480Yvvrvcb/Globulin [Mass ratio]1.4 {ratio}Normal [facility] HospitalComment on above:Performed By: #### ESR, CBC, CMP #### [place] [address] USASerum or plasma anion gap determinationOrdered By: Prince Velazquez on 52-06-8853Yielh gap [Moles/Vol]12.2 mmol/LNormal6.0-15.0[facility] HospitalComment on above:Performed By: #### ESR, CBC, CMP #### [facility] [address] [phone] USASodium [Moles/volume] in Serum or PlasmaOrdered By: Prince Caroline on 14-18-0047Xqyelg [Moles/Vol]137 mmol/JPukvyf243-274MtqdiexhtBucyrus Community HospitalComment on above:Performed By: #### ESR, CBC, CMP #### [facility] [address] [phone] USAUrea nitrogen [Mass/volume] in Serum or PlasmaOrdered By: Prince Velazquez on 41-84-6539Spah nitrogen [Mass/Vol]14 mg/dLNormal7-25[facility] HospitalComment on above:Performed By: #### ESR, CBC, CMP #### [facility] [address] [place] [address] USACBC WITH AUTO DIFFERENTIALon 35-71-3396VTDUARCPT ABSOLUTE COUNT (10*3/UL) BY AUTOMATED COUNT0.1 10*3/uLNormal0.0-0.2PGood Samaritan Hospital Ambulatory PPGComment on above:Performed By: #### CBCA #### [facility] ([facility]) [address] [place] [address] VIRBASOPHILS RELATIVE PERCENT BY AUTOMATED COUNT0.8 %Normal [facility] Ambulatory PPGComment on above:Performed By: #### CBCA #### [facility] ([facility]) [address] [place] [address] VIRCELLAVISION DIFFERENTIAL TYPEAUTOMATED DIFFERENTIALNormal [facility] Ambulatory PPGComment on above:Performed By: #### CBCA #### [facility] ([facility]) [address] [place] [address] VIREosinophils (Bld) [#/Vol]0.2 10*3/uLNormal0.0-0.4[facility] Ambulatory PPGComment on above:Performed By: #### CBCA #### [facility] ([facility]) [address] [place] [address] VIREOSINOPHILS RELATIVE PERCENT BY AUTOMATED COUNT3.1 %Normal [facility] Ambulatory PPGComment on above:Performed By: #### CBCA #### [facility] ([facility]) [address] [place] [address] VIRErythrocyte distribution width (RBC) [Ratio]14.1 %Normal 11.5-15[facility] Ambulatory PPGComment on above:Performed By: #### CBCA #### [facility] ([facility]) [address] [place] [address] VIRHematocrit (Bld) [Volume fraction]43.1 %Ewrnzq58-80IluRaqkvp Hospital Ambulatory PPGComment on above:Performed By: #### CBCA #### [facility] ([facility]) [address] [place] [address] VIRHemoglobin (Bld) [Mass/Vol]14.5 g/aFBzrlgf58-26UqsJyfkiy Hospital Ambulatory PPGComment on above:Performed By: #### CBCA #### [facility] ([facility]) [address] [place] [address] VIRLYMPHOCYTES ABSOLUTE COUNT (10*3/UL) BY AUTOMATED COUNT2.7 10*3/uLNormal1.0-3.5PGood Samaritan Hospital Ambulatory PPGComment on above:Performed By: #### CBCA #### [facility] ([facility]) [address] [place] [address] VIRLYMPHOCYTES RELATIVE PERCENT BY AUTOMATED COUNT43.3 %Normal [facility] Ambulatory PPGComment on above:Performed By: #### CBCA #### [facility] ([facility]) [address] [place] [address] VIRMCH (RBC) [Entitic mass]30.8 adAkggga34-86YicZqqlst Hospital Ambulatory PPGComment on above:Performed By: #### CBCA #### [facility] ([facility]) [address] [place] [address] VIRMCHC (RBC) [Mass/Vol]33.7 g/vZUuudes55-59OrhPcouwa Hospital Ambulatory PPGComment on above:Performed By: #### CBCA #### [facility] ([facility]) [address] [place] [address] VIRMCV (RBC) [Entitic vol]91 wZLvvqqj29-801IgrRouxqq Hospital Ambulatory PPGComment on above:Performed By: #### CBCA #### [facility] ([facility]) [address] [place] [address] VIRMONOCYTES ABSOLUTE COUNT (10*3/UL) BY AUTOMATED COUNT0.6 10*3/uLNormal0.0-0.9[facility] Ambulatory PPGComment on above:Performed By: #### CBCA #### [facility] ([facility]) [address] [place] [address] VIRMONOCYTES RELATIVE PERCENT BY AUTOMATED COUNT10.0 %Normal [facility] Ambulatory PPGComment on above:Performed By: #### CBCA #### [facility] ([facility]) [address] [place] [address] VIRNEUTROPHILS ABSOLUTE COUNT BY AUTOMATED COUNT2.7 10*3/uL Normal1.5-6.6[facility] Ambulatory PPGComment on above:Performed By: #### CBCA #### [facility] ([facility]) [address] [place] [address] VIRNEUTROPHILS RELATIVE PERCENT BY AUTOMATED COUNT42.8 %Normal [facility] Ambulatory PPGComment on above:Performed By: #### CBCA #### [facility] ([facility]) [address] [place] [address] VIRPlatelet mean volume (Bld) [Entitic vol]8.2 fLNormal7-12 [facility] Ambulatory PPGComment on above:Performed By: #### CBCA #### [facility] ([facility]) [address] [place] [address] VIRPlatelets (Bld) [#/Vol]157 10*3/cSCchngr361-142SwtHpyyob Hospital Ambulatory PPGComment on above:Performed By: #### CBCA #### [facility] ([facility]) [address] [place] [address] VIRRBC COUNT4.73 X10E12/LNormal4.1-5.7[facility] Ambulatory PPGComment on above:Performed By: #### CBCA #### [facility] ([facility]) [address] [place] [address] VIRWBC (Bld) [#/Vol]6.3 10*3/uLNormal4-11[facility] Ambulatory PPGComment on above:Performed By: #### CBCA #### [facility] ([facility]) [address] [place] [address] VIRCERULOPLASMINon 76-34-1170MTYJEJNWFGENA98 mg/fHXbiimc18-01 [facility] Ambulatory PPGComment on above:Performed By: #### CER #### [facility] ([facility]) [address] [place] [address] VIRERYTHROCYTE SEDIMENTATION RATE (ESR)on 02-55-8547NWM, ERYTHROCYTE SEDIMENTATION RATE21 mm/hHigh0-20[facility] PPG Comment on above:Performed By: #### ESR #### [facility] ([facility]) [address] [place] [address] VIRLYME TOTALon 95-36-4841TKVF TOTAL<^0.2Normal<0.9[facility] Ambulatory PPGComment on above:Order Comment: Interpretation < 0.9 Negative 0.9 - 1.0 Equivocal > 1.0 Positive No serological evidence of Borrelia infection. A non-reactive result does not exclude the possibility of Borrelia infection and cannot exclude early infection wth B. burgdorferi. If Lyme borreliosis is suspected, a second sample should be collected and tested 2-4 weeks later.Performed By: #### LYMET #### [facility] ([facility]) [address] [place] [address] VIRMETHYLMALONIC ACID, QN, Inocente 60-15-0909DXHFBGNACJSVW ACID, QN, P0.19 nmol/mLNormal<=0.40[facility] Ambulatory PPGComment on above: Result Comment: ADDITIONAL INFORMATION This test was developed and its performance characteristics determined by [facility] in a manner consistent with CLIA requirements. This test has not been cleared or approved by the U.S. Food and Drug Administration. Test Performed by: [place] [address] [employer] Director: German Morrison Ph.D.; CLIA# [id number] By: #### MMAP #### [facility] ([facility]) [address] [place] [address] VIRCBC AND AUTO DIFFon 37-94-8820EGKWQBCT BASOPHIL0.0 X10E9/LNormal0.0-0.2ProMedUniversity Hospitals Ahuja Medical CenterComment on above:Performed By: #### RENNY 95241-4, CBCA, CMP, 2131-12 #### [facility] ([id number]) [address], [address] [place], [place] [address]FEZDNRTM NEUTROPHIL4.0 X10E9/LNormal1.5-6.6ProOhiohealth Arthur G.H. Bing, Md, Cancer Center HospitalComment on above:Performed By: #### RENNY, 85150-3, CBCA, CMP, 2131-12 #### [facility] ([id number]) [address], [address] [place], [place] [address]Cfiewsird/100 WBC (Bld)0.5 %NormalProBlanchard Valley Health System Comment on above:Performed By: #### RENNY, 38784-5, CBCA, CMP, 2131-12 #### [facility] ([id number]) [address], [address] [place], [place] [address]Vairuyykhgv (Bld) [#/Vol]0.2 10*3/uLNormal0.0-0.4ProOhiohealth Arthur G.H. Bing, Md, Cancer Center HospitalComment on above:Performed By: #### RENNY, 64328-1, CBCA, CMP, 2131-12 #### [facility] ([id number]) [address], [address] [place], [place] [address]Npbxraxiccl/100 WBC (Bld)2.7 %NormalProOhiohealth Arthur G.[facility]. [facility], [facility], Cancer Center Hospital Comment on above:Performed By: #### RENNY, 42655-4, CBCA, CMP, 2131-12 #### [facility] ([id number]) [address], [facility] [address] [place], [place] [address]Gyhlazameqo distribution width (RBC) [Ratio]13.9 %Normal 11.5-15.0ProBlanchard Valley Health SystemComment on above:Performed By: #### RENNY, 39779-5, CBCA, CMP, 2131-12 #### [facility] ([id number]) [address], [facility] [address] [place], [place] [address]Zskrudidjv (Bld) [Volume fraction]44.3 %Yqyirc88-34NovBghfgqBlanchard Valley Health SystemComment on above:Performed By: #### RENNY, 90098-5, CBCA, CMP, 2131-12 #### [facility] ([id number]) [address], [address] [place], [place] [address]Lddsoqiqus (Bld) [Mass/Vol]14.9 g/gOPabuba17.0-17.0ProBlanchard Valley Health SystemComment on above:Performed By: #### RENNY, 13270-8, CBCA, CMP, 2131-12 #### [facility] ([id number]) [address], [address] [place], [place] [address]Soiixyydjwl (Bld) [#/Vol]3.6 10*3/uLHigh1.0-3.5ProMedica Doniphan HospitalComment on above:Performed By: #### TSHR, 68655-7, CBCA, CMP, 2131-12 #### [facility] ([id number]) [address], [address] [place], [place] [address]Jwpjibvtrin/100 WBC (Bld)42.1 %NormalProOhiohealth Arthur [facility] Center Hospital Comment on above:Performed By: #### TSHR, 98528-5, CBCA, CMP, 2131-12 #### [facility] ([id number]) [address], [address] [place], [place] [address]YBW (RBC) [Entitic mass]31.0 owPizgdu87-64UcbYpweei [place] HospitalComment on above:Performed By: #### TSHR, 91473-0, CBCA, CMP, 2131-12 #### [facility] ([id number]) [address], [address] [place], [place] [address]UOLJ (RBC) [Mass/Vol]33.5 g/sGUepzvu26-49XduBuhwyl [place] HospitalComment on above:Performed By: #### TSHR, 75817-1, CBCA, CMP, 2131-12 #### [facility] ([id number]) [address], [address] [place], [place] [address]FAQ (RBC) [Entitic vol]92 lPCofbsu07-561JurLaiasg [place] HospitalComment on above:Performed By: #### TSHR, 15065-9, CBCA, CMP, 2131-12 #### [facility] ([id number]) [address], [address] [place], [place] [address]Bbbepkoer (Bld) [#/Vol]0.7 10*3/uLNormal0-0.9ProAvita Health System Ontario Hospitalca Doniphan HospitalComment on above:Performed By: #### TSHR, 43953-0, CBCA, CMP, 2131-12 #### [facility] ([id number]) [address], [address] [place], [place] [address]Caplcenld/100 WBC (Bld)8.5 %NormalChildren's Hospital of Columbus Comment on above:Performed By: #### RENNY, 72903-0, CBCA, CMP, 2131-12 #### [facility] ([id number]) [address], [address] [place], [place] [address]Zswyrujzhnd/100 WBC (Bld)46.2 %NormalChildren's Hospital of Columbus Comment on above:Performed By: #### TSHNakia, 96642-1, CBCA, CMP, 2131-12 #### [facility] ([id number]) [address], [address] [place], [place] [address]Icevjtye mean volume (Bld) [Entitic vol]8.2 fLNormal7-12 [facility] Hospital DaytonComment on above:Performed By: #### RENNY, 69172-3, CBCA, CMP, 2131-12 #### [facility] ([id number]) [address], [address] [place], [place] [address]Rnqhzmkcp (Bld) [#/Vol]175 10*3/sQErrvez590-641MynYbqxjw [place] HospitalComment on above:Performed By: #### RENNY, 23645-2, CBCA, CMP, 2131-12 #### [facility] ([id number]) [address], [address] [place], [place] [address]LZC COUNT4.80 X10E12/LNormal4.10-5.70[facility] Comment on above:Performed By: #### MOISÉSR, 42508-0, CBCA, CMP, 2131-12 #### [facility] ([id number]) [address], [address] [place], [place] [address]XAT (Bld) [#/Vol]8.6 10*3/uLNormal4.0-11.0ProMedica [facility] HospitalComment on above:Performed By: #### TSHR, 54072-4, CBCA, CMP, 2132-9 #### [facility] ([id number]) [address] [place], [place] [address]IIJ auto differentialon 43-64-6842Sqjwerbou (Bld) [#/Vol]0 10*3/uLKettering Health Washington Township SystemBasophils/100 WBC (Bld)0.5 %[facility] SystemEosinophils (Bld) [#/Vol]0.2 10*3/uLKettering Health Washington Township SystemEosinophils/100 WBC (Bld)2.7 %[facility] SystemErythrocyte distribution width (RBC) [Ratio]13.9 %11.5 - 15.0 %[facility] SystemHematocrit (Bld) [Volume fraction]44.3 %39 - 49 %[facility] Medical CenterHemoglobin (Bld) [Mass/Vol]14.9 g/dL13.0 - 17.0 g/dLKettering Health Washington Township SystemInterpretation and review of laboratory resultsAbnormalKettering Health Washington Township SystemLymphocytes (Bld) [#/Vol]3.6 10*3/uLHighDiley Ridge Medical CenterLymphocytes/100 WBC (Bld)42.1 %[facility] Medical CenterMCH (RBC) [Entitic mass]31 pg27 - 34 [facility] HospitalMCHC (RBC) [Mass/Vol]33.5 g/dL32 - 36 g/dLDiley Ridge Medical CenterMCV (RBC) [Entitic vol]92 fL80 - 100 [facility] CenterMonocytes (Bld) [#/Vol]0.7 10*3/uL [facility] CenterMonocytes/100 WBC (Bld)8.5 %[facility] Neutrophils (Bld) [#/Vol]4 10*3/uLKettering Health Washington Township SystemNeutrophils/100 WBC (Bld)46.2 %[facility] Medical CenterPlatelet mean volume (Bld) [Entitic vol]8.2 fL 7 - 12 [facility]'s Medical CenterPlatelets (Bld) [#/Vol]175 10*3/uLProAvita Health System Ontario Hospitalca Health SystemRBC (Bld) [#/Vol]4.8 10*6/[facility] HospitalWBC corrected for nucl RBC Auto (Bld) [#/Vol]8.6[facility] COMPREHENSIVE METABOLIC PANELon 57-10-1801Xpwyiab [Mass/Vol]4.3 g/dLNormal 3.2-5.3ProMedica Doniphan HospitalComment on above:Performed By: #### TSHR, 66312- 1, CBCA, CMP, 2131-12 #### [facility] ([id number]) [address], [address] [place], [place] [address]HJK [Catalytic activity/Vol]51 U/EYnmqqs69-967XbbSyzqxg [place] HospitalComment on above:Performed By: #### TSHR, 23264-3, CBCA, CMP, 2131-12 #### [facility] ([id number]) [address], [address] [place], [place] [address]VEG [Catalytic activity/Vol]29 U/LNormal0-40ProOhiohealth Arthur G.H. Bing, Md, Cancer Center HospitalComment on above:Performed By: #### TSHR, 89382-5, CBCA, CMP, 2131-12 #### [facility] ([id number]) [address], [address] [place], [place] [address]Worsv gap [Moles/Vol]9 mmol/LNormal5-15ProOhiohealth Arthur [facility] Hospital Comment on above:Performed By: #### TSHR, 72779-1, CBCA, CMP, 2131-12 #### [facility] ([id number]) [address], [address] [place], [place] [address]RSB [Catalytic activity/Vol]29 U/LNormal0-41ProOhiohealth Arthur G.H. Bing, Md, Cancer Center HospitalComment on above:Performed By: #### TSHR, 75031-2, CBCA, CMP, 2131-12 #### [facility] ([id number]) [address], [address] [place], [place] [address]Ugeggglyg [Mass/Vol]0.5 mg/dLNormal0.3-1.2PKettering Health Springfield HospitalComment on above:Performed By: #### RENNY, 77114-6, CBCA, CMP, 2131-12 #### [facility] ([id number]) [address], [address] [place], [place] [address]Oqvvzob [Mass/Vol]9.3 mg/dLNormal8.5-10.5PKettering Health Springfield HospitalComment on above:Performed By: #### RENNY, 76643-9, CBCA, CMP, 2131-12 #### [facility] ([id number]) [address], [address] [place], [place] [address]Hjpavflq [Moles/Vol]103 mmol/DYnqjmx71-487FbsEhwkwu [place] HospitalComment on above:Performed By: #### RENNY, 24773-5, CBCA, CMP, 2131-12 #### [facility] ([id number]) [address], [address] [place], [place] [address]GV1 [Moles/Vol]24 mmol/BWpnyng48-04KtyNivxuv [facility] Comment on above:Performed By: #### RENNY, 62736-4, CBCA, CMP, 2131-12 #### [facility] ([id number]) [address], [address] [place], [place] [address]Uszjryojhf [Mass/Vol]1.15 mg/dLNormal0.60-1.30ProBlanchard Valley Health SystemComment on above:Result Comment: METHOD TRACEABLE TO IDMS STANDARD Performed By: #### RENNY, 23782-9, CBCA, CMP, 2131-12 #### [facility] ([id number]) [address], [address] [place], [place] [address]XYE/1.73 sq M.predicted among non-blacks MDRD (S/P/Bld) [Vol rate/Area]69 mL/min/{1.73_m2}Normal>59ProBlanchard Valley Health SystemComment on above: Result Comment: Reported eGFR is based on the CKD-EPI 2020 equation that does not use a race coefficient.Performed By: #### Hakeem LAWSON-1, CBCA, CMP, 2131-12 #### [facility] ([id number]) [address], [address] [place], [place] [address]Etfiird [Mass/Vol]105 mg/kYKzce40-83KwgMhoelzChildren's Hospital of Columbus Comment on above:Performed By: #### RENNY 83077-8, CBCA, CMP, 2131-12 #### [facility] ([id number]) [address], [address] [place], [place] [address]Ugjirpgun [Moles/Vol]3.9 mmol/LNormal3.5-5.0ProBlanchard Valley Health SystemComment on above:Performed By: #### Hakeem LAWSON-1, CBCA, CMP, 2131-12 #### [facility] ([id number]) [address], [address] [place], [place] [address]Qzlanfx [Mass/Vol]7.9 g/dLNormal6.0-8.0[facility] Comment on above:Performed By: #### RENNY 79751-5, CBCA, CMP, 2131-12 #### [facility] ([id number]) [address], [address] [place], [place] [address]Dsdixn [Moles/Vol]136 mmol/RPeeqnh807-948BahPtygdd [facility] HospitalComment on above:Performed By: #### RENNY 18673-7, CBCA, CMP, 2131-12 #### [facility] ([id number]) [address], [address] [place], [place] [address]Nnyl nitrogen [Mass/Vol]16 mg/dLNormal5-27ProOhiohealth Arthur G.[facility]. Bing, Md, Cancer Center HospitalComment on above:Performed By: #### Kathleen LAWSON31-1, CBCA, CMP, 2132-9 #### [facility] ([id number]) [address] [place], [place] [address]Wecfppjli (Vitamin B12) [Mass/Vol]on 33-21-6618EsmZmazxj Health SystemComprehensive metabolic panelon 41-92-4973Xcvjcro [Mass/Vol]4.3 g/dL3.2 - 5.3 g/dLProMedica Health SystemALP [Catalytic activity/Vol]51 U/L39 - 130 U/L ProMgrandview medical centera Health SystemALT No additional P-5'-P [Catalytic activity/Vol]29 U/L0 - 40 U/LProMedica Health SystemAnion gap [Moles/Vol]9 mmol/L5 - 15 mmol/L ProMedic Health SystemAST [Catalytic activity/Vol]29 U/L0 - 41 U/LProMedica Health SystemBilirubin [Mass/Vol]0.5 mg/dL0.3 - 1.2 mg/dLProMedica Health System Calcium [Mass/Vol]9.3 mg/dL8.5 - 10.5 mg/dLProMedica Health SystemChloride [Moles/Vol]103 mmol/L98 - 109 mmol/LProMedica Health SystemCO2 [Moles/Vol]24 mmol/L22 - 32 mmol/LProMedica Health SystemCreatinine [Mass/Vol]1.15 mg/dL0.60 - 1.30 mg/dLKettering Health Washington Township SystemComment on above:METHOD TRACEABLE TO [facility] STANDARDeGFR (CKD-EPI)non-race obygnvtmh57- [facility] SystemComment on above: Reported eGFR is based on the CKD-EPI 2020 equation that does not use a race coefficient. Glucose [Mass/Vol]105 mg/oTQebn33 - 99 mg/dLProMedica Health SystemPotassium [Moles/Vol]3.9 mmol/L3.5 - 5.0 mmol/LProMedica Health SystemProtein [Mass/Vol] 7.9 g/dL6.0 - 8.0 g/dLProMedica Health SystemSodium [Moles/Vol]136 mmol/L134 - 146 mmol/LProMedica Health SystemUrea nitrogen [Mass/Vol]16 mg/dL5 - 27 mg/dL [facility] CenterLipid 1996 panelon [id number] [Mass/Vol]125 mg/mYCve808 - 200 mg/dLDiley Ridge Medical CenterCholesterol in HDL [Mass/Vol]41 mg/dL39 - PINF mg/dLDiley Ridge Medical CenterComment on above: HDL <40 mg/dL - High Risk HDL > or = 40mg/dL- Desirable HDL >60 mg/dL - Negative Risk Cholesterol in LDL [Mass/Vol]50 mg/dLNINF - 130 mg/dLDiley Ridge Medical Center Comment on above: LDL <100 mg/dL - Desirable LDL >160 mg/dL - High Risk Cholesterol in VLDL [Mass/Vol]34 mg/dLHigh0 - 30 mg/dLDiley Ridge Medical Center Cholesterol.total/Cholesterol in HDL [Mass ratio]3 {ratio}1.0 - 5.0Diley Ridge Medical CenterTriglyceride [Mass/Vol]170 mg/vWIpkg36 - 150 mg/dLDiley Ridge Medical CenterCholesterol [Mass/Vol]125 mg/sOUtm262-251YunObrtrmChildren's Hospital of ColumbusComment on above:Performed By: #### TSHR, 58385-0, CBCA, [facility], 213- #### [facility] ([id number]) [address], [address] [place], [place] [address]Nsfnzhwomus in HDL [Mass/Vol]41 mg/dLNormal>39ProBlanchard Valley Health SystemComment on above:Result Comment: HDL <40 mg/dL - High Risk HDL > or = 40mg/dL- Desirable HDL >60 mg/dL - Negative Risk Performed By: #### RENNY, 00368-0, CBCA, CMP, 2131-12 #### [facility] ([id number]) [address], [address] [place], [place] [address]Snaxdpjwqqo in LDL [Mass/Vol]50 mg/dLNormal<130ProBlanchard Valley Health SystemComment on above:Result Comment: LDL <100 mg/dL - Desirable LDL >160 mg/dL - High Risk Performed By: #### RENNY, 20838-5, CBCA, CMP, 2131-12 #### [facility] ([id number]) [address], [address] [place], [place] [address]Omvjraaodac in VLDL [Mass/Vol]34 mg/dLHigh0-30ProOhiohealth Arthur G.H. Bing, Md, Cancer Center HospitalComment on above:Performed By: #### RENNY 38561-0, CBCA, CMP, 2131-12 #### [facility] ([id number]) [address], [address] [place], [place] [address]HFAIYWGLKOT:HDL3.2Gwgpao3.0-5.0ProBlanchard Valley Health SystemComment on above:Performed By: #### RENNY, 76969-9, CBCA, CMP, 2131-12 #### [facility] ([id number]) [address], [address] [place], [place] [address]Lrmvnamutzhd [Mass/Vol]170 mg/rFBubi34-407XuyXnzell [facility]edo HospitalComment on above:Performed By: #### RENNY, 38369-9, CBCA, CMP, 2131-12 #### [facility] ([id number]) [address], [address] [place] [address]Dn Panel Informationon 74-68-3391Rzzuodyidkzzyv and review of laboratory resultsAbnoCritical access hospitalProKettering Health Washington Township SystemProstate specific Ag [Mass/Vol]on 98-22-4825PkaKycjnqDiley Ridge Medical CenterPSA SCREEN0.12 ng/mL Normal0.00-4.00Children's Hospital of ColumbusComment on above:Result Comment: The method used for this test is Crystal Armida DXI chemiluminescent immunoassay. Values obtained by different assay methods cannot be used interchangeably.Performed By: #### 2857-1 #### [facility] ([id number]) [address] [place] [address], [address] [place] [address]Yktgkaxcm specific antigen screenon 42-18-4696Rfwumypm specific Ag [Mass/Vol]0.12 ng/mL0.00 - 4.00 ng/mLDiley Ridge Medical CenterComment on above: The method used for this test is Crystal Armida DXI chemiluminescent immunoassay. Values obtained by different assay methods cannot be used interchangeably. TSH WITH REFLEXon 60-18-7528RAH2.30 uIU/mLNormal0.49-4.67ProBlanchard Valley Health SystemComment on above:Performed By: #### TSHR, 60807-2, CBCA, CMP, 2131-12 #### [facility] ([id number]) [address] [place] [address], [address] [place] [address]JAX with Reflexon 64-05-1561KZC Qn2.3 m[IU]/LProMedTomah Memorial Hospital SystemVITAMIN B12on 17-42-5712Kwtftcmbk (Vitamin B12) [Mass/Vol]525 pg/wVDnwrii035-991TohZlrcfl [place] HospitalComment on above: Performed By: #### TSHR, 07461-2, CBCA, CMP, 2131-12 #### [facility] ([id number]) [address] [place] [address], [address] [place] [address]Vyuodhn B12on 19-95-7272Jkbckrfgf (Vitamin B12) [Mass/Vol]525 pg/mL180 - 914 pg/mLDiley Ridge Medical CenterAlanine aminotransferase [Enzymatic activity/volume] in Serum or PlasmaOrdered By: Prince Velazquez on 16-77-1072SBH [Catalytic activity/Vol]Alanine aminotransferase [Enzymatic activity/volume] in Serum or Plasma7-52[facility] HospitalAlbumin [Mass/volume] in Serum or Plasma by Bromocresol green (BCG) dye binding methoOrdered By: Prince Velazquez on 48-43-7253Bfzexzx BCG dye [Mass/Vol]Albumin [Mass/volume] in Serum or Plasma by Bromocresol green (BCG) dye binding metho3.5-5.7FCleveland Clinic Mentor HospitalAlkaline phosphatase [Enzymatic activity/volume] in Serum or PlasmaOrdered By: Prince Velazquez on 79-38-6510LFY [Catalytic activity/Vol] Alkaline phosphatase [Enzymatic activity/volume] in Serum or Pzgukt31-452 [facility] HospitalAspartate aminotransferase [Enzymatic activity/volume] in Serum or PlasmaOrdered By: Prince Velazquez on 40-58-7593PVD [Catalytic activity/Vol]Aspartate aminotransferase [Enzymatic activity/volume] in Serum or Wncjuh10-54FgvcjzeqyBucyrus Community HospitalBasophils Auto (Bld) [#/Vol]Ordered By: Prince Velazquez on 53-66-8906Itjuvqhjv (Bld) [#/Vol]Automated basophil count0.0-0.2FCleveland Clinic Mentor HospitalBasophils/100 WBC Auto (Bld)Ordered By: Prince Velazquez on 46-38-4316Qriocpgzt/100 WBC (Bld)Automated basophil %.[facility] HospitalBilirubin.total [Mass/volume] in Serum or PlasmaOrdered By: Prince Velazquez on 30-73-9604Nsxagvkro [Mass/Vol] Bilirubin.total [Mass/volume] in Serum or Plasma0.3-1.0[facility] HospitalCalcium [Mass/volume] in Serum or PlasmaOrdered By: Prince Velazquez on 17-85-2799Vrcunzi [Mass/Vol]Calcium [Mass/volume] in Serum or Plasma8.6-10.3 [facility] HospitalCarbon dioxide, total [Moles/volume] in Serum or PlasmaOrdered By: Prince Velazquez on 43-68-4634XL0 [Moles/Vol]Carbon dioxide, total [Moles/volume] in Serum or Ytxbqt28.0-31.0[facility] HospitalChloride [Moles/volume] in Serum or PlasmaOrdered By: Prince Velazquez on 67-55-4914Rqelqjfl [Moles/Vol]Chloride [Moles/volume] in Serum or Dbaozy16-261 [facility] HospitalComplete Blood Count Auto Diffon 07-03-2024 Basophils (Bld) [#/Vol]0.1 10*3/uLNormal0.0-0.2[facility] Comment on above:Performed By: #### CBC, CMP, ESR #### [facility] [address] [place] [address] USABasophils/100 WBC (Bld)0.7 %Normal.The [facility] Physician GroupComment on above:Performed By: #### CBC, CMP, ESR #### [facility] [address] [place] [address] USAEosinophils (Bld) [#/Vol]0.3 10*3/uLNormal0.0-0.45The [facility] Physician GroupComment on above:Performed By: #### CBC, CMP, ESR #### [facility] [address] [place] [address] USAEosinophils/100 WBC (Bld)3.1 %Normal.The [facility] Physician GroupComment on above:Performed By: #### CBC, CMP, ESR #### [place] [address] USAErythrocyte distribution width (RBC) [Ratio]13.3 %Normal 12.0-14.8The [facility] Physician GroupComment on above:Performed By: #### CBC, CMP, ESR #### [facility] [address] [place] [address] USAHematocrit (Bld) [Volume fraction]43.0 %Cpztcj17.8-50.0The [facility] Physician GroupComment on above:Performed By: #### CBC, CMP, ESR #### [place] [address] USAHemoglobin (Bld) [Mass/Vol]14.6 g/jXUtykty17.0-17.0The [facility]ician GroupComment on above:Performed By: #### CBC, CMP, ESR #### [place] [address] USALymphocytes (Bld) [#/Vol]2.8 10*3/uLNormal1.00-4.8The [facility] Physician GroupComment on above:Performed By: #### CBC, CMP, ESR #### [place] [address] USALymphocytes/100 WBC (Bld)33.4 %Normal.The [facility] Physician GroupComment on above:Performed By: #### CBC, CMP, ESR #### [place] [address] USAMCH (RBC) [Entitic mass]31.2 nuPyjrqv14.5-35.2The [facility] Physician GroupComment on above:Performed By: #### CBC, CMP, ESR #### [place] [address] USAV (RBC) [Entitic vol]91.6 lNGykrsk53.5-101The [facility] Physician GroupComment on above:Performed By: #### CBC, CMP, ESR #### [place] [address] USAMean Corpuscular HGB Conc34.0 g/aTYlndhn27.5-35.6The [facility] Physician GroupComment on above:Performed By: #### CBC, CMP, ESR #### [place] [address] USAMonocytes (Bld) [#/Vol]1.0 10*3/uLHigh0.0-0.8The [facility] Physician GroupComment on above:Performed By: #### CBC, CMP, ESR #### [place] [address] USAMonocytes/100 WBC (Bld)11.3 %Normal.The [facility] Physician GroupComment on above:Performed By: #### CBC, CMP, ESR #### [place] [address] USANeutrophils (Bld) [#/Vol]4.4 10*3/uLNormal1.8-7.7The [facility] Physician GroupComment on above:Performed By: #### CBC, CMP, ESR #### [facility] [address] [place] [address] USANeutrophils/100 WBC (Bld)51.5 %Normal.The [facility]ician GroupComment on above:Performed By: #### CBC, CMP, ESR #### [facility] [address] [place] [address] USANRBC%0.1 /100{WBC}Normal0-0.5The [facility] Comment on above:Performed By: #### CBC, CMP, ESR #### [facility] [address] [place] [address] USAPlatelet mean volume (Bld) [Entitic vol]7.7 fLNormal 6.6-10.1The [facility] Physician GroupComment on above:Performed By: #### CBC, CMP, ESR #### [facility] [address] [place] [address] USAPlatelets (Bld) [#/Vol]160 10*3/pORobqwi367-032Fdo [facility] GroupComment on above:Performed By: #### CBC, CMP, ESR #### [facility] [address] [place] [address] USARBC (Bld) [#/Vol]4.69 10*6/uLNormal3.90-5.60The [facility] GroupComment on above:Performed By: #### CBC, CMP, ESR #### [place] [address] USAWBC (Bld) [#/Vol]8.5 10*3/uLNormal4.1-10.5The [facility]ician GroupComment on above:Performed By: #### CBC, CMP, ESR #### [place] [address] USAComprehensive Metabolic Panelon 47-80-7603Zkahyzg [Mass/Vol]4.1 g/dLNormal3.5-5.7The [facility] Physician GroupComment on above: Performed By: #### CBC, CMP, ESR #### [place] [address] USAAlbumin/Globulin [Mass ratio]1.1 {ratio}NormalThe [facility] Physician GroupComment on above:Performed By: #### CBC, CMP, ESR #### [place] [address] USAALP [Catalytic activity/Vol]53 U/OLryvir70-695Ecg [facility] Physician GroupComment on above:Result Comment: PERFORMED BY: [place] [address] PATHOLOGIST HAND GRINDER LILA MCINTYRE M.D.Performed By: #### CBC, CMP, ESR #### [place] [address] USAALT [Catalytic activity/Vol]27 U/LNormal7-52The [facility] Physician GroupComment on above:Performed By: #### CBC, CMP, ESR #### [place] [address] USAAnion gap [Moles/Vol]9.6 mmol/LNormal6.0-15.0The [facility] Physician GroupComment on above:Performed By: #### CBC, CMP, ESR #### [place] [address] USAAST [Catalytic activity/Vol]28 U/CPlvieo66-95Kyc [facility]ician GroupComment on above:Performed By: #### CBC, CMP, ESR #### [facility] [address] [place] [address] USABilirubin [Mass/Vol]0.7 mg/dLNormal0.3-1.0The [facility]ician GroupComment on above:Performed By: #### CBC, CMP, ESR #### [place] [address] USACalcium [Mass/Vol]9.0 mg/dLNormal8.6-10.3The [facility] Physician GroupComment on above:Performed By: #### CBC, CMP, ESR #### [facility] [address] [place] [address] USAChloride [Moles/Vol]102 mmol/RCbusvi97-908Eya [facility] GroupComment on above:Performed By: #### CBC, CMP, ESR #### [facility] [address] [place] [address] USACO2 [Moles/Vol]26.9 mmol/ASglzef19.0-31.0The [facility]ician GroupComment on above:Performed By: #### CBC, CMP, ESR #### [facility] [address] [place] [address] USACreatinine [Mass/Vol]1.17 mg/dLNormal0.70-1.30The [facility] Physician GroupComment on above:Performed By: #### CBC, CMP, ESR #### [facility] [address] [place] [address] USAGFR/1.73 sq M.predicted MDRD (S/P/Bld) [Vol rate/Area] mL/min/{1.73_m2}NormalThe [facility] Physician GroupComment on above:Performed By: #### CBC, CMP, ESR #### [facility] [address] [place] [address] USAGlobulin (S) [Mass/Vol]3.7 g/dLNormalThe [facility] Physician GroupComment on above:Performed By: #### CBC, CMP, ESR #### [facility] [address] [place] [address] USAGlucose [Mass/Vol]88 mg/ySUtulpy33-178Glg [facility]ician GroupComment on above:Result Comment: Random Glucose Reference Range is dependent on time and content of last meal. Glucose of more than 200 mg/dL in a nonstressed, ambulatory subject supports the diagnosis of Diabetes Mellitus. ADA recommended reference rangePerformed By: #### CBC, CMP, ESR #### [facility] [address] [place] [address] USAPotassium [Moles/Vol]4.5 mmol/LNormal3.5-5.1The [facility]ician GroupComment on above:Performed By: #### CBC, CMP, ESR #### [facility] [address] [place] [address] USAProtein [Mass/Vol]7.8 g/dLNormal6.4-8.9The [facility] Physician GroupComment on above:Performed By: #### CBC, CMP, ESR #### [facility] [address] [place] [address] USASodium [Moles/Vol]134 mmol/QYuh355-259Nkf [facility] GroupComment on above:Performed By: #### CBC, CMP, ESR #### [facility] [address] [place] [address] USAUrea nitrogen [Mass/Vol]13 mg/dLNormal7-25The [facility] GroupComment on above:Performed By: #### CBC, CMP, ESR #### [facility] [address] [place] [address] USACreatinine [Mass/volume] in Serum or PlasmaOrdered By: Prince Velazquez on 91-49-3027Vntlfwpmzm [Mass/Vol]Creatinine [Mass/volume] in Serum or Plasma0.70-1.30[facility] HospitalEosinophils Auto (Bld) [#/Vol]Ordered By: Prince Velazquez on 06-77-8505Krxaxhrbjlt (Bld) [#/Vol] Automated eosinophil count0.0-0.45[facility] Eosinophils/100 WBC Auto (Bld)Ordered By: Prince Velazquez on 07-03-2024 Eosinophils/100 WBC (Bld)Automated eosinophil %.[facility] HospitalErythrocyte Sedimentation Rateon 07-12-1061PYD (Bld) [Velocity]23 mm/hHigh 0-19The [facility]ician GroupComment on above:Result Comment: PERFORMED BY: [place] [address] PATHOLOGIST HAND GRINDER LILA MCINTYRE M.D.Performed By: #### CBC, CMP, ESR #### [facility] [address] [place] [address] USAErythrocyte distribution width Auto (RBC) [Ratio]Ordered By: Prince Velazquez on 38-57-8554Dqltsxnavna distribution width (RBC) [Ratio] Erythrocyte distribution width [Ratio] by Automated count12.0-14.8[facility] HospitalErythrocyte sedimentation rate by Photometric method Ordered By: Prince Velazquez on 09-09-4539ZED Photometric method (Bld) [Velocity] Erythrocyte sedimentation rate by Photometric methodHigh0-19[facility] HospitalGlobulin Calc (S) [Mass/Vol]Ordered By: Prince Velazquez on 73-04-6520Emlgmtxw (S) [Mass/Vol]Serum globulin measurement by calculation (mass/volume)[facility] HospitalGlucose [Mass/volume] in Serum or PlasmaOrdered By: Prince Velazquez on 02-70-6506Avyfcxr [Mass/Vol]Glucose [Mass/volume] in Serum or Wymwkh20-316FjpufvaqiBucyrus Community HospitalComment on above:ADA recommended reference rangeRandom Glucose Reference Range is dependent on time and content of last meal. Glucose of more than 200 mg/dL in a nonstressed, ambulatory subject supports the diagnosisof Diabetes Mellitus. Hematocrit Auto (Bld) [Volume fraction]Ordered By: Prince Velazquez on 07-03-2024 Hematocrit (Bld) [Volume fraction]Hematocrit [Volume Fraction] of Blood by Automated count38.8-50.0[facility] HospitalHemoglobin [Mass/volume] in BloodOrdered By: Prince Velazquez on 46-56-0483Ywxylihjhq (Bld) [Mass/Vol]Hemoglobin [Mass/volume] in Blood13.0-17.0[facility] HospitalLeukocytes [#/volume] corrected for nucleated erythrocytes in Blood by Automated counOrdered By: Prince Velazquez on 40-99-2979DHB corrected for nucl RBC Auto (Bld) [#/Vol]Leukocytes [#/volume] corrected for nucleated erythrocytes in Blood by Automated coun4.1-10.5FCleveland Clinic Mentor HospitalLymphocytes Auto (Bld) [#/Vol]Ordered By: Prince Velazquez on 00-23-2719Ffyorjijdnn (Bld) [#/Vol]Lymphocytes [#/volume] in Blood by Automated count1.00-4.8[facility] Medical CenterLymphocytes/100 WBC Auto (Bld)Ordered By: Prince Velazquez on 27-90-5629Ziszokzzebf/100 WBC (Bld)Lymphocytes/100 leukocytes in Blood by Automated count.[facility] HospitalMCH Auto (RBC) [Entitic mass] Ordered By: Prince Velazquez on 89-74-7393ONH (RBC) [Entitic mass]MCH [Entitic mass] by Automated count27.5-35.2FCleveland Clinic Mentor HospitalMCHC Auto (RBC) [Mass/Vol]Ordered By: Prince Velazquez on 42-08-4240IXTN (RBC) [Mass/Vol] MCHC [Mass/volume] by Automated count32.5-35.6FC[facility] Hospital MCV Auto (RBC) [Entitic vol]Ordered By: Prince Velazquez on 56-00-7039ITK (RBC) [Entitic vol]MCV [Entitic volume] by Automated count83.5-101[facility] HospitalMonocytes Auto (Bld) [#/Vol]Ordered By: Prince Velazquez on 01-10-1385Mwxbeukic (Bld) [#/Vol]Automated blood monocyte countHigh0.0-0.8 [facility] HospitalMonocytes/100 WBC Auto (Bld)Ordered By: Prince Velazquez on 51-09-7449Posbjbdcy/100 WBC (Bld)Automated monocyte %.[facility] HospitalNeutrophils Auto (Bld) [#/Vol]Ordered By: Prince Velazquez on 40-11-4119Lpphxnmttxy (Bld) [#/Vol]Neutrophils [#/volume] in Blood by Automated count1.8-7.7FCleveland Clinic Mentor HospitalNeutrophils/100 WBC Auto (Bld)Ordered By: Prince Velazquez on 56-79-2964Lwlnrdosqyo/100 WBC (Bld)Automated neutrophil %.[facility] HospitalNo Panel InformationOrdered By: Prince Velazquez on 93-06-8526Jojpxtdep GFR (CKD-EPI)> 60.0 mL/MinBucyrus Community HospitalPharmacy Creatinine Clearance (ChemN/AFCleveland Clinic Mentor HospitalNucleated erythrocytes [Presence] in Blood by Automated count Ordered By: Prince Velazquez on 93-55-9814Itjqbykce RBC Auto Ql (Bld)Nucleated erythrocytes [Presence] in Blood by Automated count0-0.5FCleveland Clinic Mentor HospitalPlatelet mean volume Auto (Bld) [Entitic vol]Ordered By: Prince Velazquez on 34-70-9915Fdnwxywa mean volume (Bld) [Entitic vol]Platelet mean volume [Entitic volume] in Blood by Automated count6.6-10.1FCleveland Clinic Mentor HospitalPlatelets Auto (Bld) [#/Vol]Ordered By: Prince Velazquez on 07-03-2024 Platelets (Bld) [#/Vol]Platelets [#/volume] in Blood by Automated faolu143-895 [facility] HospitalPotassium [Moles/volume] in Serum or Plasma Ordered By: Prince Velazquez on 03-23-5434Uykrbedpi [Moles/Vol]Potassium [Moles/volume] in Serum or Plasma3.5-5.1FCleveland Clinic Mentor HospitalProtein [Mass/volume] in Serum or PlasmaOrdered By: Prince Velazquez on 17-49-5652Rsuzipn [Mass/Vol]Protein [Mass/volume] in Serum or Plasma6.4-8.9[facility] HospitalRBC Auto (Bld) [#/Vol]Ordered By: Prince Velazquez on 84-95-5163YFJ (Bld) [#/Vol]Erythrocytes [#/volume] in Blood by Automated count3.90-5.60 [facility] Hospitalerum or plasma albumin/globulin mass ratio Ordered By: Prince Velazquez on 09-07-8002Hufboqr/Globulin [Mass ratio]Serum or plasma albumin/globulin mass ratioAshtabula General Hospitalerum or plasma anion gap determinationOrdered By: Prince Velazquez on 15-38-8493Htkax gap [Moles/Vol]Serum or plasma anion gap determination6.0-15.0[facility] Hospitalodium [Moles/volume] in Serum or PlasmaOrdered By: Prince Velazquez on 18-16-5077Gkwgvk [Moles/Vol]Sodium [Moles/volume] in Serum or PlasmaLow 136-145[facility] HospitalUrea nitrogen [Mass/volume] in Serum or PlasmaOrdered By: Prince Velazquez on 98-20-5571Mmqi nitrogen [Mass/Vol]Urea nitrogen [Mass/volume] in Serum or Plasma11-09[facility] WBC Auto (Bld) [#/Vol]Ordered By: Prince Velazquez on 30-42-2505TLO (Bld) [#/Vol] Leukocytes [#/volume] in Blood by Automated count4.1-10.5FCleveland Clinic Mentor HospitalPOCT EKGon 02-66-4930WgcBwozqtDiley Ridge Medical CenterPOCT EKGon 04-16-2024 [facility] CenterComplete Blood Count Auto Diffon 10-48-0848Crxuzazzi (Bld) [#/Vol]0.2 10*3/uLNormal0.0-0.2The [facility] Physician GroupComment on above:Performed By: #### CMP, ESR, CBC #### [facility] [address] [place] [address] USABasophils/100 WBC (Bld)2.7 %Normal.The [facility] Physician GroupComment on above:Performed By: #### CMP, ESR, CBC #### [facility] [address] [place] [address] USAEosinophils (Bld) [#/Vol]0.2 10*3/uLNormal0.0-0.45The [facility] Physician GroupComment on above:Performed By: #### CMP, ESR, CBC #### [facility] [address] [place] [address] USAEosinophils/100 WBC (Bld)3.0 %Normal.The [facility] Physician GroupComment on above:Performed By: #### CMP, ESR, CBC #### [facility] [address] [place] [address] USAErythrocyte distribution width (RBC) [Ratio]13.8 %Normal 12.0-14.8The [facility] Physician GroupComment on above:Performed By: #### CMP, ESR, CBC #### [facility] [address] [place] [address] USAHematocrit (Bld) [Volume fraction]43.6 %Ybhcmb00.8-50.0The [facility] Physician GroupComment on above:Performed By: #### CMP, ESR, CBC #### [place] [address] USAHemoglobin (Bld) [Mass/Vol]14.8 g/yJPwekwr61.0-17.0The [facility] Physician GroupComment on above:Performed By: #### CMP, ESR, CBC #### [place] [address] USALymphocytes (Bld) [#/Vol]2.4 10*3/uLNormal1.00-4.8The [facility] Physician GroupComment on above:Performed By: #### CMP, ESR, CBC #### [place] [address] USALymphocytes/100 WBC (Bld)33.5 %Normal.The [facility] Physician GroupComment on above:Performed By: #### CMP, ESR, CBC #### [place] [address] USAMCH (RBC) [Entitic mass]31.0 knUwudeh89.5-35.2The [facility] Physician GroupComment on above:Performed By: #### CMP, ESR, CBC #### [place] [address] USAMCV (RBC) [Entitic vol]91.3 cEYcbfio76.5-101The [facility] Physician GroupComment on above:Performed By: #### CMP, ESR, CBC #### [place] [address] USAMean Corpuscular HGB Conc33.9 g/uSHkrplm58.5-35.6The [facility] Physician GroupComment on above:Performed By: #### CMP, ESR, CBC #### [place] [address] USAMonocytes (Bld) [#/Vol]0.6 10*3/uLNormal0.0-0.8The [facility] Physician GroupComment on above:Performed By: #### CMP, ESR, CBC #### [place] [address] USAMonocytes/100 WBC (Bld)8.6 %Normal.The [facility] Physician GroupComment on above:Performed By: #### CMP, ESR, CBC #### [facility] [address] [place] [address] USANeutrophils (Bld) [#/Vol]3.7 10*3/uLNormal1.8-7.7The [facility] Physician GroupComment on above:Performed By: #### CMP, ESR, CBC #### [facility] [address] [place] [address] USANeutrophils/100 WBC (Bld)52.2 %Normal.The [facility] Physician GroupComment on above:Performed By: #### CMP, ESR, CBC #### [place] [address] USANRBC%0.1 /100{WBC}Normal0-0.5The [facility] Comment on above:Performed By: #### CMP, ESR, CBC #### [facility] [address] [place] [address] USAPlatelet mean volume (Bld) [Entitic vol]8.1 fLNormal 6.6-10.1The [facility] Physician GroupComment on above:Performed By: #### CMP, ESR, CBC #### [place] [address] USAPlatelets (Bld) [#/Vol]165 10*3/eFDtuhcv437-241Wtz [facility] Physician GroupComment on above:Performed By: #### CMP, ESR, CBC #### [facility] [address] [place] [address] USARBC (Bld) [#/Vol]4.78 10*6/uLNormal3.90-5.60The [facility] Physician GroupComment on above:Performed By: #### CMP, ESR, CBC #### [place] [address] USAWBC (Bld) [#/Vol]7.1 10*3/uLNormal4.1-10.5The [facility] Physician GroupComment on above:Performed By: #### CMP, ESR, CBC #### [place] [address] USAComprehensive Metabolic Panelon 23-24-7349Kciqaxr [Mass/Vol]4.1 g/dLNormal3.5-5.7The [facility] Physician GroupComment on above: Performed By: #### CMP, ESR, CBC #### [place] [address] USAAlbumin/Globulin [Mass ratio]1.2 {ratio}NormalThe [facility] Health Physician GroupComment on above:Performed By: #### CMP, ESR, CBC #### [place] [address] USAALP [Catalytic activity/Vol]47 U/ESwjnsy20-069Thq [facility] Physician GroupComment on above:Result Comment: PERFORMED BY: [place] [address] PATHOLOGIST HAND GRINDER LILA MCINTYRE M.D.Performed By: #### CMP, ESR, CBC #### [place] [address] USAALT [Catalytic activity/Vol]19 U/LNormal7-52The [facility] Physician GroupComment on above:Performed By: #### CMP, ESR, CBC #### [place] [address] USAAnion gap [Moles/Vol]12.5 mmol/LNormal6.0-15.0The [facility] Physician GroupComment on above:Performed By: #### CMP, ESR, CBC #### [place] [address] USAAST [Catalytic activity/Vol]21 U/OKegfeu43-82Zkh [facility] Physician GroupComment on above:Performed By: #### CMP, ESR, CBC #### [place] [address] USABilirubin [Mass/Vol]0.7 mg/dLNormal0.3-1.0The [facility] Physician GroupComment on above:Performed By: #### CMP, ESR, CBC #### [facility] [address] [place] [address] USACalcium [Mass/Vol]9.1 mg/dLNormal8.6-10.3The [facility] Physician GroupComment on above:Performed By: #### CMP, ESR, CBC #### [facility] [address] [place] [address] USAChloride [Moles/Vol]106 mmol/MVmbmlm03-489Bwk [facility] Physician GroupComment on above:Performed By: #### CMP, ESR, CBC #### [facility] [address] [place] [address] USACO2 [Moles/Vol]23.8 mmol/NTsyyqc25.0-31.0The [facility] Physician GroupComment on above:Performed By: #### CMP, ESR, CBC #### [facility] [address] [place] [address] USACreatinine [Mass/Vol]1.19 mg/dLNormal0.70-1.30The [facility] Physician GroupComment on above:Performed By: #### CMP, ESR, CBC #### [facility] [address] [place] [address] USAGFR/1.73 sq M.predicted MDRD (S/P/Bld) [Vol rate/Area] mL/min/{1.73_m2}NormalThe Duke Health Physician GroupComment on above:Performed By: #### CMP, ESR, CBC #### [facility] [address] [place] [address] USAGlobulin (S) [Mass/Vol]3.4 g/dLNormalThe Duke Health Physician GroupComment on above:Performed By: #### CMP, ESR, CBC #### [place] [address] USAGlucose [Mass/Vol]93 mg/qOPhzepd45-142Kak [facility] Health Physician GroupComment on above:Result Comment: Random Glucose Reference Range is dependent on time and content of last meal. Glucose of more than 200 mg/dL in a nonstressed, ambulatory subject supports the diagnosis of Diabetes Mellitus. ADA recommended reference rangePerformed By: #### CMP, ESR, CBC #### [facility] [address] [place] [address] USAPotassium [Moles/Vol]4.3 mmol/LNormal3.5-5.1The [facility] Health Physician GroupComment on above:Performed By: #### CMP, ESR, CBC #### [facility] [address] [place] [address] USAProtein [Mass/Vol]7.5 g/dLNormal6.4-8.9The [facility] Health Physician GroupComment on above:Performed By: #### CMP, ESR, CBC #### [place] [address] USASodium [Moles/Vol]138 mmol/BDqimon832-613Sox [facility] Health Physician GroupComment on above:Performed By: #### CMP, ESR, CBC #### [place] [address] USAUrea nitrogen [Mass/Vol]18 mg/dLNormal7-25The [facility] Health Physician GroupComment on above:Performed By: #### CMP, ESR, CBC #### [place] [address] USAErythrocyte Sedimentation Rateon 48-56-5859NOL (Bld) [Velocity]19 mm/hNormal0-19The [facility] Health Physician GroupComment on above:Result Comment: PERFORMED BY: [place] [address] PATHOLOGIST HAND GRINDER LILA MCINTYRE M.D.Performed By: #### CMP, ESR, CBC #### [place] [address] USALipid Panelon 64-59-9101Dkkhriovjah [Mass/Vol]119 mg/dLLow 140-200The [facility] Health Physician GroupComment on above:Result Comment: Chol less than 200 mg/dl low risk Chol 201-239 mg/dl borderline risk Chol 240 mg/dl and greater high riskPerformed By: #### MG, LIPID #### [place] [address] USACholesterol in HDL [Mass/Vol]43 mg/hYDxitfw17-79Svh [facility] Health Physician GroupComment on above:Result Comment: HDL CHOL ATP-III CLASSIFICATION Cardiovascular Risk HDL > or equal to 60 mg/dL LOW HDL < 40 mg/dL HIGHPerformed By: #### MG, LIPID #### [facility] [address] [place] [address] USACholesterol.total/Cholesterol in HDL [Mass ratio]2.8 {ratio}Normal<5.0The [facility] Health Physician GroupComment on above:Result Comment: PERFORMED BY: [place] [address] PATHOLOGIST HAND GRINDER LILA MCINTYRE M.D.Performed By: #### MG, LIPID #### [address] [address] USALDL Cholesterol,Iindketoii05 mg/dLNormal0-100The [facility] Health Physician GroupComment on above:Result Comment: LDL ATP III CLASSIFICATION LDL less than 100 mg/dL Optimal LDL 100-129 mg/dL Near or above optimal LDL 130-159 mg/dL Borderline high LDL 160-189 mg/dL High LDL greater than 189 mg/dL Very highPerformed By: #### MG, LIPID #### [address] [address] USATriglyceride w/Wsrmgw95 mg/dLNormal0-149The [facility] Health Physician GroupComment on above:Result Comment: TRIG ATP III CLASSIFICATION TRIG less than 150 mg/dL Normal TRIG 150-199 mg/dL Borderline high TRIG 200-500 mg/dL High TRIG greater than 500 mg/dL Very high Standard traceable to the Center for Disease Conrtrol and Prevention (CDC) test method.Performed By: #### MG, LIPID #### [facility] [address] [place] [address] USAVLDL ISVYMSENYFF41 mg/dLNormalThe [facility] Health Physician GroupComment on above:Performed By: #### MG, LIPID #### [address] [address] USAMagnesiumon 76-46-1374Pamcluwqg [Mass/Vol]1.9 mg/dLNormal 1.9-2.7The [facility] Health Physician GroupComment on above:Performed By: #### MG, LIPID #### [facility] [address]Alanine aminotransferase [Enzymatic activity/volume] in Serum or PlasmaOrdered By: Prince Velazquez on 31-69-9440VOJ [Catalytic activity/Vol]21 U/L7-52[facility] HospitalAlbumin [Mass/volume] in Serum or Plasma by Bromocresol green (BCG) dye binding methoOrdered By: Prince Velazquez on 41-71-5767Zzznpnx BCG dye [Mass/Vol]4.2 g/dL3.5-5.7FCleveland Clinic Mentor HospitalAlkaline phosphatase [Enzymatic activity/volume] in Serum or PlasmaOrdered By: Prince Velazquez on 00-70-9541NJZ [Catalytic activity/Vol]55 U/L 34-104[facility] HospitalAspartate aminotransferase [Enzymatic activity/volume] in Serum or PlasmaOrdered By: Prince Velazquez on 50-23-7303QWR [Catalytic activity/Vol]23 U/Y69-08JspvfviqrBucyrus Community HospitalBasophils Auto (Bld) [#/Vol]Ordered By: Prince Velazquez on 62-12-2765Zomeeyypm (Bld) [#/Vol]0.1 10*3/uL0.0-0.2FCleveland Clinic Mentor HospitalBasophils/100 WBC Auto (Bld)Ordered By: Prince Velazquez on 89-94-1078Wtqujoocj/100 WBC (Bld)0.9 %. [facility] HospitalBilirubin.total [Mass/volume] in Serum or PlasmaOrdered By: Prince Velazquez on 50-46-9499Xfloheqfl [Mass/Vol]0.6 mg/dL 0.3-1.0[facility] HospitalCalcium [Mass/volume] in Serum or Plasma Ordered By: Prince Velazquez on 04-34-1646Kzvkdjo [Mass/Vol]8.9 mg/dL8.6-10.3 [facility] HospitalCarbon dioxide, total [Moles/volume] in Serum or PlasmaOrdered By: Prince Velazquez on 77-09-3612SZ3 [Moles/Vol]24.7 mmol/L 21.0-31.0[facility] HospitalChloride [Moles/volume] in Serum or PlasmaOrdered By: Prince Velazquez on 60-47-1205Splpvegf [Moles/Vol]102 mmol/L 98-107[facility] HospitalCreatinine [Mass/volume] in Serum or PlasmaOrdered By: Prince Velazquez on 83-00-8883Tfjnkqjuwi [Mass/Vol]1.21 mg/dL 0.70-1.30[facility] HospitalEosinophils Auto (Bld) [#/Vol]Ordered By: Prince Velazquez on 38-82-5860Pdngpaiqkuy (Bld) [#/Vol]0.2 10*3/uL0.0-0.45 [facility] HospitalEosinophils/100 WBC Auto (Bld)Ordered By: Prince Velazquez on 93-83-6053Kjirgnflaph/100 WBC (Bld)2.5 %.[facility] HospitalErythrocyte distribution width Auto (RBC) [Ratio]Ordered By: Prince Velazquez on 60-61-3648Vtkawcfqjby distribution width (RBC) [Ratio]13.5 % 12.0-14.8[facility] HospitalErythrocyte sedimentation rate by Photometric methodOrdered By: Prince Velazquez on 27-12-4220VWC Photometric method (Bld) [Velocity]24 mm/hrHigh0-19[facility] HospitalGlobulin Calc (S) [Mass/Vol]Ordered By: Prince Velazquez on 29-60-4070Ltrvqdpy (S) [Mass/Vol]3.4 g/dLBucyrus Community HospitalGlucose [Mass/volume] in Serum or Plasma Ordered By: Prince Velazquez on 36-63-8690Guwtvul [Mass/Vol]82 mg/aO21-051 [facility] HospitalComment on above:ADA recommended reference rangeRandom Glucose Reference Range is dependent on time and content of last meal. Glucose of more than 200 mg/dL in a nonstressed, ambulatory subject supports the diagnosisof Diabetes Mellitus.Hematocrit Auto (Bld) [Volume fraction]Ordered By: Prince Velazquez on 37-49-1997Tnhyntyjwd (Bld) [Volume fraction]43.4 %38.8-50.0[facility] HospitalHemoglobin [Mass/volume] in BloodOrdered By: Prince Velazquez on 34-77-3995Sxmbwzkadn (Bld) [Mass/Vol]14.7 g/dL13.0-17.0[facility] HospitalLeukocytes [#/volume] corrected for nucleated erythrocytes in Blood by Automated coun Ordered By: Prince Velazquez on 90-96-3614DLX corrected for nucl RBC Auto (Bld) [#/Vol]8.7 10*3/uL4.1-10.5FCleveland Clinic Mentor HospitalLymphocytes Auto (Bld) [#/Vol]Ordered By: Prince Velazquez on 96-63-5616Bcqhwazunfy (Bld) [#/Vol] 2.7 10*3/uL1.00-4.8[facility] HospitalLymphocytes/100 WBC Auto (Bld)Ordered By: Prince Velazquez on 16-11-7373Ukhicdxtflw/100 WBC (Bld)30.8 %. [facility] HospitalMCH Auto (RBC) [Entitic mass]Ordered By: Prince Velazquez on 71-34-3350ACG (RBC) [Entitic mass]31.2 pg27.5-35.2FCleveland Clinic Mentor HospitalMCHC Auto (RBC) [Mass/Vol]Ordered By: Prince Velazquez on 08-24-3068XKRH (RBC) [Mass/Vol]33.9 g/dL32.5-35.6FCleveland Clinic Mentor HospitalMCV Auto (RBC) [Entitic vol]Ordered By: Prince Velazquez on 19-54-4795SGU (RBC) [Entitic vol]92.1 fL83.5-101[facility] HospitalMonocytes Auto (Bld) [#/Vol]Ordered By: Prince Velazquez on 33-22-6740Urzinntkw (Bld) [#/Vol]0.8 10*3/uL0.0-0.8[facility] HospitalMonocytes/100 WBC Auto (Bld)Ordered By: Prince Velazquez on 94-47-3228Oxqzdhshk/100 WBC (Bld)9.1 %. [facility] HospitalNeutrophils Auto (Bld) [#/Vol]Ordered By: Prince Velazquez on 88-69-8475Anlivdjxeji (Bld) [#/Vol]4.9 10*3/uL1.8-7.7FCleveland Clinic Mentor HospitalNeutrophils/100 WBC Auto (Bld)Ordered By: Prince Velazquez on 44-87-4727Isommeovdcz/100 WBC (Bld)56.7 %.[facility] No Panel InformationOrdered By: Prince Velazquez on 12-89-2700Nfyudlacv GFR (CKD-EPI)> 60.0 mL/MinBucyrus Community HospitalPharmacy Creatinine Clearance (ChemN/[facility] HospitalNucleated erythrocytes [Presence] in Blood by Automated countOrdered By: Prince Velazquez on 12-06-2023 Nucleated RBC Auto Ql (Bld)0.1 /100{WBC}0-0.5FCleveland Clinic Mentor Hospital Platelet mean volume Auto (Bld) [Entitic vol]Ordered By: Prince Velazquez on 67-14-5533Tjwilnee mean volume (Bld) [Entitic vol]8.6 fL6.6-10.1FCleveland Clinic Mentor HospitalPlatelets Auto (Bld) [#/Vol]Ordered By: Prince Velazquez on 98-57-1282Skdhmgzwa (Bld) [#/Vol]166 10*3/dO562-897QjypuspbpBucyrus Community HospitalPotassium [Moles/volume] in Serum or PlasmaOrdered By: Prince Velazquez on 04-23-9673Sabazpefh [Moles/Vol]4.2 mmol/L3.5-5.1FCleveland Clinic Mentor HospitalProtein [Mass/volume] in Serum or PlasmaOrdered By: Prince Velazquez on 44-26-7910Zwjjatd [Mass/Vol]7.6 g/dL6.4-8.9[facility] HospitalRBC Auto (Bld) [#/Vol]Ordered By: Prince Velazquez on 83-30-7448OBV (Bld) [#/Vol]4.72 10*6/uL3.90-5.60[facility] Hospitalerum or plasma albumin/globulin mass ratioOrdered By: Prince Velazquez on 12-06-2023 Albumin/Globulin [Mass ratio]1.2 {ratio}[facility] Hospitalerum or plasma anion gap determinationOrdered By: Prince Velazquez on 34-00-0032Ckesc gap [Moles/Vol]11.5 mmol/L6.0-15.0[facility] Hospitalodium [Moles/volume] in Serum or PlasmaOrdered By: Prince Velazquez on 13-06-9893Hcsizq [Moles/Vol]134 mmol/EDlt765-811TpvntinvpBucyrus Community HospitalUrea nitrogen [Mass/volume] in Serum or PlasmaOrdered By: Prince Velazquez on 10-76-6084Ciiy nitrogen [Mass/Vol]21 mg/dL7-25[facility] HospitalWBC Auto (Bld) [#/Vol]Ordered By: Prince Velazquez on 30-31-6663SRM (Bld) [#/Vol]8.7 10*3/uL 4.1-10.5FCleveland Clinic Mentor HospitalAlanine aminotransferase [Enzymatic activity/volume] in Serum or PlasmaOrdered By: Ese Villanueva on 42-46-0227NJN [Catalytic activity/Vol]22 U/L7-52[facility] HospitalAlbumin [Mass/volume] in Serum or Plasma by Bromocresol green (BCG) dye binding metho Ordered By: Ese Villanueva on 99-98-5534Duwacjj BCG dye [Mass/Vol]4.2 g/dL 3.5-5.7FCleveland Clinic Mentor HospitalAlkaline phosphatase [Enzymatic activity/volume] in Serum or PlasmaOrdered By: Ese Villanueva on 39-86-3914VKD [Catalytic activity/Vol]49 U/Z65-873MircnetjgBucyrus Community HospitalAspartate aminotransferase [Enzymatic activity/volume] in Serum or PlasmaOrdered By: Ese Villanueva on 21-77-0092ICV [Catalytic activity/Vol]23 U/R22-70RuxcdikkdBucyrus Community HospitalBasophils Auto (Bld) [#/Vol]Ordered By: Ese Villanueva on 52-72-2311Bigqvmmtv (Bld) [#/Vol]0.1 10*3/uL0.0-0.2FCleveland Clinic Mentor HospitalBasophils/100 WBC Auto (Bld)Ordered By: Ese Villanueva on 08-16-2023 Basophils/100 WBC (Bld)1.2 %.[facility] HospitalBilirubin.total [Mass/volume] in Serum or PlasmaOrdered By: Ese Villanueva on 08-16-2023 Bilirubin [Mass/Vol]0.6 mg/dL0.3-1.0[facility] HospitalCalcium [Mass/volume] in Serum or PlasmaOrdered By: Ese Villanueva on 67-58-6739Jjmfmmh [Mass/Vol]8.9 mg/dL8.6-10.3FC[facility] Clinic Mentor HospitalCarbon dioxide, total [Moles/volume] in Serum or PlasmaOrdered By: Ese Villanueva on 08-16-2023 CO2 [Moles/Vol]23.4 mmol/L21.0-31.0[facility] HospitalChloride [Moles/volume] in Serum or PlasmaOrdered By: Ese Villanueva on 08-16-2023 Chloride [Moles/Vol]104 mmol/G11-977QughbvbwpBucyrus Community HospitalCreatinine [Mass/volume] in Serum or PlasmaOrdered By: Ese Villanueva on 08-16-2023 Creatinine [Mass/Vol]1.16 mg/dL0.70-1.30[facility] Eosinophils Auto (Bld) [#/Vol]Ordered By: Ese Villanueva on 08-16-2023 Eosinophils (Bld) [#/Vol]0.2 10*3/uL0.0-0.45[facility] Eosinophils/100 WBC Auto (Bld)Ordered By: Ese Villanueva on 08-16-2023 Eosinophils/100 WBC (Bld)2.8 %.[facility] HospitalErythrocyte distribution width Auto (RBC) [Ratio]Ordered By: Ese Villanueva on 08-16-2023 Erythrocyte distribution width (RBC) [Ratio]13.5 %12.0-14.8[facility] HospitalErythrocyte sedimentation rate by Photometric methodOrdered By: Ese Villanueva on 28-76-2685UDD Photometric method (Bld) [Velocity]16 mm/hr0-19 [facility] HospitalGlobulin Calc (S) [Mass/Vol]Ordered By: Ese Villanueva on 64-73-1173Wplqekds (S) [Mass/Vol]2.9 g/dLBucyrus Community HospitalGlucose [Mass/volume] in Serum or PlasmaOrdered By: Ese Villanueva on 44-90-5425Lsgqkgo [Mass/Vol]94 mg/rG93-219EatetwzusBucyrus Community Hospital Comment on above:ADA recommended reference rangeRandom Glucose Reference Range is dependent on time and content of last meal. Glucose of more than 200 mg/dL in a nonstressed, ambulatory subject supports the diagnosisof Diabetes Mellitus. Hematocrit Auto (Bld) [Volume fraction]Ordered By: Ese Villanueva on 08-16-2023 Hematocrit (Bld) [Volume fraction]41.6 %38.8-50.0[facility] HospitalHemoglobin [Mass/volume] in BloodOrdered By: Ese Villanueva on 08-16-2023 Hemoglobin (Bld) [Mass/Vol]14.2 g/dL13.0-17.0[facility] Leukocytes [#/volume] corrected for nucleated erythrocytes in Blood by Automated counOrdered By: Ese Villanueva on 96-10-3747QMA corrected for nucl RBC Auto (Bld) [#/Vol]7.8 10*3/uL4.1-10.5FCleveland Clinic Mentor HospitalLymphocytes Auto (Bld) [#/Vol]Ordered By: Ese Villanueva on 64-83-9153Sjcjttwdmni (Bld) [#/Vol]2.7 10*3/uL1.00-4.8[facility] HospitalLymphocytes/100 WBC Auto (Bld)Ordered By: Ese Villanueva on 53-55-5525Lpknthdkkyv/100 WBC (Bld)33.9 %.[facility] HospitalMCH Auto (RBC) [Entitic mass]Ordered By: Ese Villanueva on 28-15-3433BIT (RBC) [Entitic mass]31.2 pg27.5-35.2FCleveland Clinic Mentor HospitalMCHC Auto (RBC) [Mass/Vol]Ordered By: Ese Villanueva on 34-09-8402QXDB (RBC) [Mass/Vol]34.0 g/dL32.5-35.6FCleveland Clinic Mentor HospitalMCV Auto (RBC) [Entitic vol]Ordered By: Ese Villanueva on 90-32-3236YID (RBC) [Entitic vol]91.6 fL83.5-101[facility] HospitalMonocytes Auto (Bld) [#/Vol]Ordered By: Ese Villanueva on 51-69-5151Cqrstqoek (Bld) [#/Vol]0.9 10*3/uL0.0-0.8[facility] HospitalMonocytes/100 WBC Auto (Bld)Ordered By: Ese Villanueva on 00-63-1492Anattshnd/100 WBC (Bld)10.9 %. [facility] HospitalNeutrophils Auto (Bld) [#/Vol]Ordered By: Ese Villanueva on 25-50-4459Htavsfdntwf (Bld) [#/Vol]4.0 10*3/uL1.8-7.7FCleveland Clinic Mentor HospitalNeutrophils/100 WBC Auto (Bld)Ordered By: Ese Villanueva on 30-01-4556Pykkbnmhcfj/100 WBC (Bld)51.2 %.[facility] HospitalNo Panel InformationOrdered By: Ese Villanueva on 43-06-3567Vyeqnperg GFR (CKD-EPI)> 60.0 mL/MinBucyrus Community HospitalPharmacy Creatinine Clearance (ChemN/AFCleveland Clinic Mentor HospitalNucleated erythrocytes [Presence] in Blood by Automated countOrdered By: Ese Villanueva on 08-16-2023 Nucleated RBC Auto Ql (Bld)0.1 /100{WBC}0-0.5FCleveland Clinic [facility] Hospital Platelet mean volume Auto (Bld) [Entitic vol]Ordered By: Ese Villanueva on 31-45-9283Hukguuht mean volume (Bld) [Entitic vol]8.3 fL6.6-10.1FCleveland Clinic Mentor HospitalPlatelets Auto (Bld) [#/Vol]Ordered By: Ese Villanueva on 84-61-9677Dknkvuebl (Bld) [#/Vol]170 10*3/iW959-088HfxcdpiptBucyrus Community HospitalPotassium [Moles/volume] in Serum or PlasmaOrdered By: Ese Villanueva on 04-71-9506Xqeyviigo [Moles/Vol]4.2 mmol/L3.5-5.1FCleveland Clinic Mentor HospitalProtein [Mass/volume] in Serum or PlasmaOrdered By: Ese Villanueva on 44-67-5125Tgtxafy [Mass/Vol]7.1 g/dL6.4-8.9[facility] HospitalRBC Auto (Bld) [#/Vol]Ordered By: Ese Villanueva on 85-50-0454NHK (Bld) [#/Vol]4.54 10*6/uL3.90-5.60[facility] Hospitalerum or plasma albumin/globulin mass ratioOrdered By: sEe Villanueva on 08-16-2023 Albumin/Globulin [Mass ratio]1.4 {ratio}[facility] Hospitalerum or plasma anion gap determinationOrdered By: Ese Villanueva on 84-89-8266Irzba gap [Moles/Vol]13.8 mmol/L6.0-15.0[facility] Hospitalodium [Moles/volume] in Serum or PlasmaOrdered By: Ese Villanueva on 47-45-7607Dgszzl [Moles/Vol]137 mmol/F514-239LyqijoaanBucyrus Community HospitalUrea nitrogen [Mass/volume] in Serum or PlasmaOrdered By: Ese Villanueva on 54-96-0929Cfgw nitrogen [Mass/Vol]17 mg/dL7-25[facility] HospitalWBC Auto (Bld) [#/Vol]Ordered By: Ese Villanueva on 71-33-4327BDU (Bld) [#/Vol]7.8 10*3/uL 4.1-10.5FCleveland Clinic Mentor HospitalCobalamin (Vitamin B12) [Mass/Vol]on 96-38-6694XtoIlewxfTwin City HospitalComprehensive metabolic panelon 06-14-2023 Albumin [Mass/Vol]4.3 g/dL3.2 - 5.3 g/dLDiley Ridge Medical CenterALP [Catalytic activity/Vol]54 U/L39 - 130 U/[facility] SystemALT No additional P-5'-P [Catalytic activity/Vol]16 U/L0 - 40 U/[facility] SystemAnion gap [Moles/Vol]9 mmol/L5 - 15 mmol/LPrYuma District Hospital Health SystemAST [Catalytic activity/Vol]19 U/L0 - 41 U/[facility] SystemBilirubin [Mass/Vol]0.4 mg/dL0.3 - 1.2 mg/dLDiley Ridge Medical CenterCalcium [Mass/Vol]9.0 mg/dL8.5 - 10.5 mg/dLDiley Ridge Medical CenterChloride [Moles/Vol]104 mmol/L98 - 109 mmol/L [facility] CenterCO2 [Moles/Vol]26 mmol/L22 - 32 mmol/[facility] SystemCreatinine [Mass/Vol]1.03 mg/dL0.60 - 1.30 mg/dLDiley Ridge Medical Center Comment on above:METHOD TRACEABLE TO [facility] STANDARDeGFR (CKD-EPI)non-race pfanpgiiy08- [facility] at VCUComment on above: Reported eGFR is based on the CKD-EPI 2020 equation that does not use a race coefficient. Glucose [Mass/Vol]82 mg/dL65 - 99 mg/dLDiley Ridge Medical CenterPotassium [Moles/Vol]4.3 mmol/L3.5 - 5.0 mmol/[facility] SystemProtein [Mass/Vol] 7.7 g/dL6.0 - 8.0 g/dLKettering Health Washington Township SystemSodium [Moles/Vol]139 mmol/L134 - 146 mmol/[facility] SystemUrea nitrogen [Mass/Vol]13 mg/dL5 - 27 mg/dL Jefferson HealthVitamin B12on 80-52-6229Eltpwwckm (Vitamin B12) [Mass/Vol]310 pg/mL180 - 914 pg/mLDiley Ridge Medical CenterAlanine aminotransferase [Enzymatic activity/volume] in Serum or PlasmaOrdered By: Ese Villanueva on 43-76-0634SWV [Catalytic activity/Vol]21 U/L7-52[facility] HospitalAlbumin [Mass/volume] in Serum or Plasma by Bromocresol green (BCG) dye binding methoOrdered By: Ese Villanueva on 58-92-4614Bsijlzr BCG dye [Mass/Vol]4.2 g/dL3.5-5.7FCleveland Clinic Mentor HospitalAlkaline phosphatase [Enzymatic activity/volume] in Serum or PlasmaOrdered By: Ese Villanueva on 20-47-9997WZR [Catalytic activity/Vol]57 U/Z52-694VoknxcwavBucyrus Community HospitalAspartate aminotransferase [Enzymatic activity/volume] in Serum or Plasma Ordered By: Ese Villanueva on 66-13-4134TBT [Catalytic activity/Vol]22 U/L13-39 [facility] HospitalBasophils Auto (Bld) [#/Vol]Ordered By: Ese Villanueva on 19-96-2228Hwmtwuxaa (Bld) [#/Vol]0.1 10*3/uL0.0-0.2FCleveland Clinic Mentor HospitalBasophils/100 WBC Auto (Bld)Ordered By: Ese Villanueva on 72-50-7214Jrihygwlx/100 WBC (Bld)0.7 %.[facility] Bilirubin.total [Mass/volume] in Serum or PlasmaOrdered By: Ese Villanueva on 23-50-9716Cxmvtansg [Mass/Vol]0.6 mg/dL0.3-1.0[facility] Calcium [Mass/volume] in Serum or PlasmaOrdered By: Ese Villanueva on 01-04-2023 Calcium [Mass/Vol]9.0 mg/dL8.6-10.3FCleveland Clinic Mentor HospitalCarbon dioxide, total [Moles/volume] in Serum or PlasmaOrdered By: Ese Villanueva on 79-89-8136MP9 [Moles/Vol]22.4 mmol/L21.0-31.0[facility] Chloride [Moles/volume] in Serum or PlasmaOrdered By: Ese Villanueva on 56-79-7111Cernpapk [Moles/Vol]108 mmol/G14-361RzofaztrbBucyrus Community Hospital Creatinine [Mass/volume] in Serum or PlasmaOrdered By: Ese Villanueva on 81-86-5635Lwiccojfpc [Mass/Vol]1.21 mg/dL0.70-1.30[facility] HospitalEosinophils Auto (Bld) [#/Vol]Ordered By: Ese Villanueva on 01-04-2023 Eosinophils (Bld) [#/Vol]0.3 10*3/uL0.0-0.45[facility] Eosinophils/100 WBC Auto (Bld)Ordered By: Ese Villanueva on 01-04-2023 Eosinophils/100 WBC (Bld)3.4 %.[facility] HospitalErythrocyte distribution width Auto (RBC) [Ratio]Ordered By: Ese Villanueva on 01-04-2023 Erythrocyte distribution width (RBC) [Ratio]13.6 %12.0-14.8[facility] HospitalErythrocyte sedimentation rate by Photometric methodOrdered By: Ese Villanueva on 62-97-4846VSJ Photometric method (Bld) [Velocity]19 mm/hr0-19 [facility] HospitalGlobulin Calc (S) [Mass/Vol]Ordered By: Ese Villanueva on 70-67-3026Ygfqrntt (S) [Mass/Vol]3.3 g/dLBucyrus Community HospitalGlucose [Mass/volume] in Serum or PlasmaOrdered By: Ese Villanueva on 99-99-9588Hnpdlhj [Mass/Vol]85 mg/rP42-148GlwgdrqqbBucyrus Community Hospital Comment on above:ADA recommended reference rangeRandom Glucose Reference Range is dependent on time and content of last meal. Glucose of more than 200 mg/dL in a nonstressed, ambulatory subject supports the diagnosisof Diabetes Mellitus. Hematocrit Auto (Bld) [Volume fraction]Ordered By: Ese Villanueva on 01-04-2023 Hematocrit (Bld) [Volume fraction]42.6 %38.8-50.0[facility] HospitalHemoglobin [Mass/volume] in BloodOrdered By: Ese Villanueva on 01-04-2023 Hemoglobin (Bld) [Mass/Vol]14.4 g/dL13.0-17.0[facility] Leukocytes [#/volume] corrected for nucleated erythrocytes in Blood by Automated counOrdered By: Ese Villanueva on 27-00-1603EWK corrected for nucl RBC Auto (Bld) [#/Vol]7.8 10*3/uL4.1-10.5FCleveland Clinic Mentor HospitalLymphocytes Auto (Bld) [#/Vol]Ordered By: Ese Villanueva on 83-28-3379Frzlckkomcf (Bld) [#/Vol]2.8 10*3/uL1.00-4.8[facility] HospitalLymphocytes/100 WBC Auto (Bld)Ordered By: Ese Villanueva on 48-94-5812Fngxhyvoosr/100 WBC (Bld)35.2 %.[facility] HospitalH Auto (RBC) [Entitic mass]Ordered By: Ese Villanueva on 23-38-6243XHL (RBC) [Entitic mass]31.3 pg27.5-35.2FCleveland Clinic Mentor HospitalMCHC Auto (RBC) [Mass/Vol]Ordered By: Ese Villanueva on 73-96-9833VFOJ (RBC) [Mass/Vol]33.9 g/dL32.5-35.6FCleveland Clinic Mentor HospitalMCV Auto (RBC) [Entitic vol]Ordered By: Ese Villanueva on 49-41-0927CBD (RBC) [Entitic vol]92.5 fL83.5-101[facility] HospitalMonocytes Auto (Bld) [#/Vol]Ordered By: Ese Villanueva on 03-66-8143Qgtbcmmgi (Bld) [#/Vol]0.8 10*3/uL0.0-0.8[facility] HospitalMonocytes/100 WBC Auto (Bld)Ordered By: Ese Villanueva on 90-20-2669Owbdebont/100 WBC (Bld)10.8 %. [facility] HospitalNeutrophils Auto (Bld) [#/Vol]Ordered By: Ese Villanueva on 66-93-8544Koqcktlyyvv (Bld) [#/Vol]3.9 10*3/uL1.8-7.7FCleveland Clinic Mentor HospitalNeutrophils/100 WBC Auto (Bld)Ordered By: Ese Villanueva on 80-61-0716Lfhfugtpbal/100 WBC (Bld)49.9 %.[facility] HospitalNo Panel InformationOrdered By: Ese Villanueva on 53-74-7997Immykuyhe GFR (CKD-EPI)> 60.0 mL/MinBucyrus Community HospitalPharmacy Creatinine Clearance (ChemN/AFCleveland Clinic Mentor HospitalNucleated erythrocytes [Presence] in Blood by Automated countOrdered By: Ese Villanueva on 01-04-2023 Nucleated RBC Auto Ql (Bld)0.0 /100{WBC}0-0.5FC[facility] Hospital Platelet mean volume Auto (Bld) [Entitic vol]Ordered By: Ese Villanueva on 25-83-1117Expmnvom mean volume (Bld) [Entitic vol]8.3 fL6.6-10.1FCleveland [facility] Mentor HospitalPlatelets Auto (Bld) [#/Vol]Ordered By: Ese Villanueva on 22-03-9693Rpulnzbah (Bld) [#/Vol]161 10*3/xX959-815RwehznkbtBucyrus Community HospitalPotassium [Moles/volume] in Serum or PlasmaOrdered By: Ese Villanueva on 21-71-0555Nvvuureur [Moles/Vol]4.1 mmol/L3.5-5.1FCleveland [facility] Mentor HospitalProtein [Mass/volume] in Serum or PlasmaOrdered By: Ese Villanueva on 61-44-4990Igmsqxx [Mass/Vol]7.5 g/dL6.4-8.9[facility] HospitalRBC Auto (Bld) [#/Vol]Ordered By: Ese Villanueva on 05-65-7989XRZ (Bld) [#/Vol]4.60 10*6/uL3.90-5.60[facility] Hospitalerum or plasma albumin/globulin mass ratioOrdered By: Ese Villanueva on 01-04-2023 Albumin/Globulin [Mass ratio]1.3 {ratio}[facility] Hospitalerum or plasma anion gap determinationOrdered By: Ese Villanueva on 84-26-9157Sqbva gap [Moles/Vol]11.7 mmol/L6.0-15.0[facility] Hospitalodium [Moles/volume] in Serum or PlasmaOrdered By: Ese Villanueva on 49-00-9871Wyypqc [Moles/Vol]138 mmol/B745-916OnhfjghalBucyrus Community HospitalUrea nitrogen [Mass/volume] in Serum or PlasmaOrdered By: Ese Villanueva on 39-68-3352Xsos nitrogen [Mass/Vol]16 mg/dL7-25[facility] HospitalWBC Auto (Bld) [#/Vol]Ordered By: Ese Villanueva on 15-52-7437LYG (Bld) [#/Vol]7.8 10*3/uL 4.1-10.5FCleveland Clinic Mentor HospitalAlanine aminotransferase [Enzymatic activity/volume] in Serum or PlasmaOrdered By: Ese Villanueva on 72-80-6304SMI [Catalytic activity/Vol]19 U/L7-52[facility] HospitalAlbumin [Mass/volume] in Serum or Plasma by Bromocresol green (BCG) dye binding metho Ordered By: Ese Villanueva on 29-16-8976Nvhhmgs BCG dye [Mass/Vol]4.1 g/dL 3.5-5.7FCleveland Clinic Mentor HospitalAlkaline phosphatase [Enzymatic activity/volume] in Serum or PlasmaOrdered By: Ese Villanueva on 43-08-3348NTF [Catalytic activity/Vol]57 U/C55-970YygbohjcrBucyrus Community HospitalAspartate aminotransferase [Enzymatic activity/volume] in Serum or PlasmaOrdered By: Ese Villanueva on 18-79-3530VWI [Catalytic activity/Vol]21 U/Q37-29ArfxsbckaBucyrus Community HospitalBasophils Auto (Bld) [#/Vol]Ordered By: Ese Villanueva on 50-81-6635Xwjpsxlwx (Bld) [#/Vol]0.1 10*3/uL0.0-0.2FC[facility] Mentor HospitalBasophils/100 WBC Auto (Bld)Ordered By: Ese Villanueva on 09-14-2022 Basophils/100 WBC (Bld)0.8 %.[facility] HospitalBilirubin.total [Mass/volume] in Serum or PlasmaOrdered By: Ese Villanueva on 09-14-2022 Bilirubin [Mass/Vol]0.7 mg/dL0.3-1.0[facility] HospitalCalcium [Mass/volume] in Serum or PlasmaOrdered By: Ese Villanueva on 12-06-1035Vnhklhb [Mass/Vol]9.0 mg/dL8.6-10.3FCleveland [facility] Mentor HospitalCarbon dioxide, total [Moles/volume] in Serum or PlasmaOrdered By: Ese Villanueva on 09-14-2022 CO2 [Moles/Vol]23.6 mmol/L21.0-31.0[facility] HospitalChloride [Moles/volume] in Serum or PlasmaOrdered By: Ese Villanueva on 09-14-2022 Chloride [Moles/Vol]106 mmol/G19-174HlgqlwugrBucyrus Community HospitalCreatinine [Mass/volume] in Serum or PlasmaOrdered By: Ese Villanueva on 09-14-2022 Creatinine [Mass/Vol]1.19 mg/dL0.70-1.30[facility] Eosinophils Auto (Bld) [#/Vol]Ordered By: Ese Villanueva on 09-14-2022 Eosinophils (Bld) [#/Vol]0.3 10*3/uL0.0-0.45[facility] Eosinophils/100 WBC Auto (Bld)Ordered By: Ese Villanueva on 09-14-2022 Eosinophils/100 WBC (Bld)3.9 %.[facility] HospitalErythrocyte distribution width Auto (RBC) [Ratio]Ordered By: Ese Villanueva on 09-14-2022 Erythrocyte distribution width (RBC) [Ratio]13.5 %12.0-14.8[facility] HospitalErythrocyte sedimentation rate by Photometric methodOrdered By: Ese Villanueva on 50-77-8253PJX Photometric method (Bld) [Velocity]12 mm/hr0-19 [facility] HospitalGlobulin Calc (S) [Mass/Vol]Ordered By: Ese Villanueva on 98-83-0434Odemkqwa (S) [Mass/Vol]3.3 g/dLBucyrus Community HospitalGlucose [Mass/volume] in Serum or PlasmaOrdered By: Ese Villanueva on 84-19-0880Ksqnoax [Mass/Vol]110 mg/gD29-382DwdlkznpkBucyrus Community Hospital Comment on above:ADA recommended reference rangeRandom Glucose Reference Range is dependent on time and content of last meal. Glucose of more than 200 mg/dL in a nonstressed, ambulatory subject supports the diagnosisof Diabetes Mellitus. Hematocrit Auto (Bld) [Volume fraction]Ordered By: Ese Villanueva on 09-14-2022 Hematocrit (Bld) [Volume fraction]42.3 %38.8-50.0[facility] HospitalHemoglobin [Mass/volume] in BloodOrdered By: Ese Villanueva on 09-14-2022 Hemoglobin (Bld) [Mass/Vol]14.4 g/dL13.0-17.0[facility] Leukocytes [#/volume] corrected for nucleated erythrocytes in Blood by Automated counOrdered By: Ese Villanueva on 64-39-5686JSV corrected for nucl RBC Auto (Bld) [#/Vol]7.6 10*3/uL4.1-10.5FCleveland Clinic Mentor HospitalLymphocytes Auto (Bld) [#/Vol]Ordered By: Ese Villanueva on 39-18-8751Zziegxqpfgj (Bld) [#/Vol]2.4 10*3/uL1.00-4.8[facility] HospitalLymphocytes/100 WBC Auto (Bld)Ordered By: Ese Villanueva on 35-58-3253Zbukupqomvr/100 WBC (Bld)32.1 %.[facility] HospitalMCH Auto (RBC) [Entitic mass]Ordered By: Ese Villanueva on 09-16-5232IRL (RBC) [Entitic mass]30.9 pg27.5-35.2FC[facility] Clinic Mentor HospitalMCHC Auto (RBC) [Mass/Vol]Ordered By: Ese Villanueva on 56-12-8776IUUJ (RBC) [Mass/Vol]33.9 g/dL32.5-35.6FCleveland [facility] Mentor HospitalMCV Auto (RBC) [Entitic vol]Ordered By: Ese Villanueva on 36-27-3787OXU (RBC) [Entitic vol]91.0 fL83.5-101[facility] HospitalMonocytes Auto (Bld) [#/Vol]Ordered By: Ese Villanueva on 42-81-7885Bqqqdknbo (Bld) [#/Vol]0.7 10*3/uL0.0-0.8[facility] HospitalMonocytes/100 WBC Auto (Bld)Ordered By: Ese Villanueva on 00-46-7064Xocjlndap/100 WBC (Bld)8.7 %. [facility] HospitalNeutrophils Auto (Bld) [#/Vol]Ordered By: Ese Villanueva on 65-69-8514Tjaqbvwwekb (Bld) [#/Vol]4.1 10*3/uL1.8-7.7FC[facility] Ment[facility] HospitalNeutrophils/100 WBC Auto (Bld)Ordered By: Ese Villanueva on 52-31-6811Zvsmqnpnbvd/100 WBC (Bld)54.5 %.[facility] HospitalNo Panel InformationOrdered By: Ese Villanueva on 95-07-2510Igshruwpz GFR (CKD-EPI)> 60.0 mL/MinBucyrus Community HospitalPharmacy Creatinine Clearance (ChemN/AFCleveland Clinic Mentor HospitalNucleated erythrocytes [Presence] in Blood by Automated countOrdered By: Ese Villanueva on 09-14-2022 Nucleated RBC Auto Ql (Bld)0.1 /100{WBC}0-0.5FC[facility] Hospital Platelet mean volume Auto (Bld) [Entitic vol]Ordered By: Ese Villanueva on 29-99-2945Stzkxsmv mean volume (Bld) [Entitic vol]8.4 fL6.6-10.1FC[facility] Ment[facility] HospitalPlatelets Auto (Bld) [#/Vol]Ordered By: Ese Villanueva on 55-16-7868Qmbpszxdl (Bld) [#/Vol]166 10*3/xX758-298RxkbshgvaBucyrus Community HospitalPotassium [Moles/volume] in Serum or PlasmaOrdered By: Ese Villanueva on 68-16-4513Fduiodyjb [Moles/Vol]4.1 mmol/L3.5-5.1FC[facility] HospitalProtein [Mass/volume] in Serum or PlasmaOrdered By: Ese Villanueva on 99-84-0981Wkhhjvm [Mass/Vol]7.4 g/dL6.4-8.9[facility] HospitalRBC Auto (Bld) [#/Vol]Ordered By: Ese Villanueva on 87-34-8292FXG (Bld) [#/Vol]4.65 10*6/uL3.90-5.60[facility] Hospitalerum or plasma albumin/globulin mass ratioOrdered By: Ese Villanueva on 09-14-2022 Albumin/Globulin [Mass ratio]1.2 {ratio}[facility] Hospitalerum or plasma anion gap determinationOrdered By: Ese Villanueva on 43-61-9692Yknno gap [Moles/Vol]11.5 mmol/L6.0-15.0[facility] Hospitalodium [Moles/volume] in Serum or PlasmaOrdered By: Ese Villanueva on 11-51-4359Yhdwir [Moles/Vol]137 mmol/Q902-378VjxfmoecoBucyrus Community HospitalUrea nitrogen [Mass/volume] in Serum or PlasmaOrdered By: Ese Villanueva on 51-06-4664Bqpn nitrogen [Mass/Vol]19 mg/dL7-25[facility] HospitalWBC Auto (Bld) [#/Vol]Ordered By: Ese Villanueva on 53-89-5854SZW (Bld) [#/Vol]7.6 10*3/uL 4.1-10.5FCleveland Clinic Mentor HospitalVC CONSULT FOLLOWUPon 16-83-7520[place] CONSULT FOLLOWUPPatient: CAVAZOS ELIAN Patterson Exam Date: 08/30/2022 : 1955 Gender:M Ordering : DR MIREYA CHRISTIANSON M.D. Admission #: [id number] Family : Order #: [id number] CLICK HERE TO VIEW EXAM RADIOLOGY REPORT [...] by: Darin Chappell M.D. on 08/30/2022 at 14:46[facility] HospitalVC EXT VENOUS LT LIMITEDon 79-87-0500VH EXT VENOUS LT LIMITEDPatient: ELIAN CAVAZOS Exam Date: 08/30/2022 : 1955 Gender:M Ordering : DR MIREYA CHRISTIANSON M.D. Admission #: [id number] Family : Order #: [id number] CLICK HERE TO VIEW EXAM RADIOLOGY REPORT [...] by: Darin Chappell M.D. on 08/30/2022 at 14:38[facility] HospitalVC ENDOVENOUS ABL 1ST V LTon 07-71-5153NI ENDOVENOUS ABL 1ST V LT Patient: ELIAN CAVAZOS Exam Date: 08/26/2022 : 1955 Gender:M Ordering : DR MIREYA CHRISTIANSON M.D. Admission #: [id number] Family : Order #: [id number] CLICK HERE TO VIEW EXAM RADIOLOGY REPORT PROCEDURE: VEIN CENTER ENDOVENOUS ABLATION FIRST VEIN LEFT COMPARISON: VC ENDOVENOUS ABL 1ST V LT, 07/13/2022. INDICATIONS: Pain co-occurrent and due to varicose veins of bilateral legs I83.813 OPERATIVE REPORT: The risks and benefits of the procedure had been previously discussed, and were rediscussed at length. Informed written consent was obtained by ar and Joseph Valles assisted. Time out procedure [...] by: Darin Chappell M.D. on 08/26/2022 at 09:44[facility] HospitalVC CONSULT FOLLOWUPon 58-46-9433ER CONSULT FOLLOWUPPatient: ELIAN CAVAZOS Exam Date: 08/12/2022 : 1955 Gender:M Ordering : DR MIREYA CHRISTIANSON M.D. Admission #: [id number] Family : Order #: [id number] CLICK HERE TO VIEW EXAM RADIOLOGY REPORT [...] by: Darin Chappell M.D. on 08/12/2022 at 12:33[facility] HospitalVC EXT VENOUS RT LIMITEDon 24-10-2145QB EXT VENOUS RT LIMITEDPatient: ELIAN CAVAZOS Exam Date: 08/12/2022 : 1955 Gender:M Ordering : DR MIREYA CHRISTIANSON M.D. Admission #: [id number] Family : Order #: [id number] CLICK HERE TO VIEW EXAM RADIOLOGY REPORT [...] by: Darin Chappell M.D. on 08/12/2022 at 12:30[facility] HospitalVC ENDOVENOUS ABL 1ST V RTon 19-61-5183RU ENDOVENOUS ABL 1ST V RT Patient: ELIAN CAVAZOS Exam Date: 08/05/2022 : 1955 Gender:M Ordering : DR MIREYA CHRISTIANSON M.D. Admission #: [id number] Family : Order #: [id number] CLICK HERE TO VIEW EXAM RADIOLOGY REPORT PROCEDURE: VEIN CENTER ENDOVENOUS ABLATION FIRST VEIN RIGHT COMPARISON: VC VENOUS REFLUX ELIEZER LMT, 06/29/2022. INDICATIONS: Pain co-occurrent and due to varicose veins of bilateral legs OPERATIVE REPORT: The risks and benefits of the procedure had been previously discussed, and were rediscussed at length. Informed written consent was obtained by me and Joseph Valles assisted. Time out procedure was performed. The right [...] by: Darin Chappell M.D. on 08/05/2022 at 10:15[facility] LimaVC CONSULT FOLLOWUPon 56-37-9256AW CONSULT FOLLOWUPPatient: ELIAN CAVAZOS Exam Date: 07/20/2022 : 1955 Gender:M Ordering : DR MIREYA CHRISTIANSON M.D. Admission #: [id number] Family : Order #: [id number] CLICK HERE TO VIEW EXAM RADIOLOGY REPORT [...] Mireya Christianson MD on 07/20/2022 at 12:46[facility] EXT VENOUS LT LIMITEDon 43-05-9702ZI EXT VENOUS LT LIMITEDPatient: ELIAN CAVAZOS Exam Date: 07/20/2022 : 1955 Gender:M Ordering : DR MIREYA CHRISTIANSON M.D. Admission #: [id number] Family : Order #: [id number] CLICK HERE TO VIEW EXAM RADIOLOGY REPORT [...] by: Mireya Christianson MD on 07/20/2022 at 10:45[facility] ENDOVENOUS ABL 1ST V LTon 05-86-8756IZ ENDOVENOUS ABL 1ST V LTPatient: ELIAN CAVAZOS Exam Date: 07/13/2022 : 1955 Gender:M Ordering : DR MIREYA CHRISTIANSON M.D. Admission #: [id number] Family : Order #: [id number] CLICK HERE TO VIEW EXAM RADIOLOGY REPORT [...] by: Mireya Christianson MD on 07/13/2022 at 11:20[facility] HospitalVC COMP CONSULTATIONon 02-54-0873NW COMP CONSULTATIONPatient: ELIAN CAVAZOS Exam Date: 06/29/2022 : 1955 Gender:M Ordering : DR MIREYA CHRISTIANSON M.D. Admission #: [id number] Family : Order #: [id number] CLICK HERE TO VIEW EXAM RADIOLOGY REPORT [...] and anterior accessory saphenous veins bilaterally. 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 CEAP: C4a, EC, AP, [place] PLAN: 1. Continued use of compression stockings [...] by: Darin Chappell M.D. on 06/29/2022 at 11:08[facility] HospitalVC VENOUS REFLUX ELIEZER LMTon 64-63-7785HU VENOUS REFLUX ELIEZER LMTPatient: ELIAN CAVAZOS Exam Date: 06/29/2022 : 1955 Gender:M Ordering : DR MIREYA CHRISTIANSON M.D. Admission #: [id number] Family : Order #: [id number] CLICK HERE TO VIEW EXAM RADIOLOGY REPORT [...] second of reflux visualized in the FV. Ratoprinter: Dist/med calf 6.4mm with 2.0s reflux. Tech [...] by: Darin Chappell M.D. on 06/29/2022 at 10:38NoMercy Health Allen HospitalAMYLASEon 86-08-0372Jpphtvb [Catalytic activity/Vol]72 U/TSrsdlk63-752 [facility] HospitalComment on above:Performed By: #### CMP, CHRIS, LIPA ####[facility] Pizmbgcmwn[address] [place], [place] [address]DrBert RosarioGOOD [facility]AR[facility] AUTO DIFFon 03-16-3420ZZKD #0.0 103/ulNormal0.0-0.1[facility] HospitalComment on above:Performed By: #### CBC ####[facility] Exffgqaxdh[address] [place], [place] [address]DrVeronica RosarioBasophils/100 WBC (Bld)0.3 %Normal0.2-2.0The [facility] HospitalComment on above:Performed By: #### CBC ####[facility] Ytquozojub[address] [place], [place] [address]DrVeronica ChangEO #0.1 103/ulNormal0.0-0.7The [facility] HospitalComment on above:Performed By: #### CBC ####[facility] Fhdvjceyqy[address] [place], [place] [address]Dr.Domi ChangEosinophils/100 WBC (Bld)1.2 %Normal 0.9-7.0The [facility] HospitalComment on above:Performed By: #### CBC ####[facility] Egxzlzbnpp6184[address] [place], [place] [address]Dr.Domi Rosario Erythrocyte distribution width (RBC) [Ratio]13.0 %Rpoyyv46.0-15.0The [facility] HospitalComment on above:Performed By: #### CBC ####[facility] Mpaurtkpyf3[address] [place], [place] [address]Dr.Domi ChangHematocrit (Bld) [Volume fraction]44.7 %Seqyic09.0-54.0The [facility] HospitalComment on above:Performed By: #### CBC ####[facility] Xkoegobcwo257[address] [place], [place] [address]Dr.Domi ChangHemoglobin (Bld) [Mass/Vol]15.7 g/dL Gwxbia32.0-18.0The [facility] HospitalComment on above:Performed By: #### CBC ####[facility] Gszjyvxble9[address] [place], [place] [address]Dr. Domi ChangIG #0.04 10e3/ulCritically high0.00-0.03The [facility] HospitalComment on above:Performed By: #### CBC ####[facility] Ixlkzxtrvk[address] [place], [place] [address]Dr.Domi ChangIG %0.3 %Normal0.0-0.5The [facility] HospitalComment on above:Performed By: #### CBC ####[facility] Qwnsqbdhbw506[address] [place], [place] [address]Dr.Domi ChangLYMPH #0.4 103/ulCritically low1.2-3.8The [facility] HospitalComment on above:Performed By: #### CBC ####[facility] Fhvsfrbmwp67[address] [place], [place] [address]Dr.Domi ChangLymphocytes/100 WBC (Bld)3.8 %Critically low20.5-60.0The [facility] HospitalComment on above:Performed By: #### CBC ####[facility] [address] [place] [address]Dr.Domi RosarioMANUAL DIFF REQ NONormalThe [facility] HospitalComment on above:Performed By: #### CBC ####[facility] Xbpgirinta6[address] [place], [place] [address]Dr. Domi AbrahamH (RBC) [Entitic mass]30.7 syFclfxy80.9-34.0[facility] Comment on above:Performed By: #### CBC ####[facility] Ognxceqvqd[address] [place], [place] [address]Dr.Domi AbrahamHC (RBC) [Mass/Vol]35.1 g/dL Ndbhof41.9-35.2The [facility] HospitalComment on above:Performed By: #### CBC ####[facility] Dptsuevyqa61969[address] [place], [place] [address]Dr. Domi RosarioV (RBC) [Entitic vol]87.3 oCBzcqtg62.0-94.0[facility] Comment on above:Performed By: #### CBC ####[facility] Fvfephgdtq[address] [place], [place] [address]Dr.Domi AbrahamMONO #0.6 103/ulNormal0.3-0.8 [facility] HospitalComment on above:Performed By: #### CBC ####[facility] Woppqamats5[address] [place], [place] [address]Dr.Domi Rosario Monocytes/100 WBC (Bld)4.9 %Normal1.7-12.0The [facility] HospitalComment on above: Performed By: #### CBC ####[facility] Jdmxvhmsgh987[address] [place], [place] [address]Dr.Domi RosarioNEUT #10.3 103/ulCritically high1.4-6.5 The [facility] HospitalComment on above:Performed By: #### CBC ####[facility] Gxpkcjrpwk[address] [place], [place] [address]Dr.Domi Rosario Neutrophils/100 WBC (Bld)89.5 %Critically high43.0-75.0[facility] Comment on above:Performed By: #### CBC ####[facility] [address] [place] [address]Dr.Domi RosarioPlatelet mean volume (Bld) [Entitic vol]9.4 fLCritically low9.5-13.5The [facility] HospitalComment on above: Performed By: #### CBC ####[facility] [address]acb[address] [place] [address]Dr.Domi IoergSXE090 103/ulCritically dui314-565Ctb [facility] HospitalComment on above:Performed By: #### CBC ####[facility] Spysjexumv[address] [place], [place] [address]Dr.Domi RosarioRBC5.12 106/ul Normal4.70-6.10The [facility] HospitalComment on above:Performed By: #### CBC ####[facility] Eshteeqxwa[address] [place], [place] [address]Dr. Domi RosarioWBC11.5 103/ulCritically high4.0-11.0The [facility] HospitalComment on above:Performed By: #### CBC ####[facility] Kicimmbfrh[address] [place], [place] [address]Dr.Domi RosarioLIPASEon 78-14-9489Qjkxop [Catalytic activity/Vol]213.0 U/IAxvwcs25.0-393.0The [facility] HospitalComment on above: Performed By: #### CMP, CHRIS, LIPA ####[facility] Zfxnndnrau[address] [place], [place] [address]Dr. Domi ChangPROF 14(COMP METB)on 17-46-6495Sgqnljn [Mass/Vol]3.9 g/dLNormal3.4-5.0The [facility] HospitalComment on above:Performed By: #### CMP, CHRIS, LIPA ####[facility] Lozqfooihk[address] [place], [place] [address]Dr. Gloriabenjamin AbrahamAlbumin/Globulin [Mass ratio]1.0 {ratio}NormalThe [facility] Reserve HospitalComment on above:Performed By: #### CMP, CHRIS, LIPA ####[facility] [address] [place] [address]Dr. Yilan ChangALP [Catalytic activity/Vol]65 U/YXcxxim95-869Xdl [facility] HospitalComment on above:Performed By: #### CMP, CHRIS, LIPA ####[facility] [address]afm[address] [place] [address]Dr. Yilan ChangALT [Catalytic activity/Vol]29 U/GPsjhqj32-76Mkh [facility] HospitalComment on above:Performed By: #### CMP, CHRIS, LIPA ####[facility] Ed[address]nscyfwe[address] [place] [address]Dr. Yilan ChangAnion gap [Moles/Vol]15.3 mmol/LNormal The [facility] HospitalComment on above:Performed By: #### CMP, CHRIS, LIPA ####[facility] [address]btqh[address] [place] [address]Dr. Yilan ChangAST [Catalytic activity/Vol]27 U/FThedod84-55Uie [facility] Comment on above:Performed By: #### CMP, CHRIS, LIPA ####[facility] [address]zfs[address] [place] [address]Dr. Yilan ChangBilirubin [Mass/Vol]0.6 mg/dLNormal0.2-1.0The [facility] HospitalComhelen newberry joy hospital on above:Performed By: #### CMP, CHRIS, LIPA ####[facility] [address]qscw[address] [place] [address]Dr. Yilan ChangCalcium [Mass/Vol]8.9 mg/dLNormal 8.5-10.1The [facility] HospitalComment on above:Performed By: #### CMP, CHRIS, LIPA ####[facility] [address]aeexs[address] [place] [address]Dr. Yilan ChangChloride [Moles/Vol]104 mmol/BQeipqm94-078Efg [facility] Comment on above:Performed By: #### CMP, CHRIS, LIPA ####[facility] Fovdxvpojh[address] [place] [address]Dr. Yilan ChangCO2 [Moles/Vol]25.6 mmol/SPlsmbq38.0-32.0The [facility] HospitalComment on above: Performed By: #### CMP, CHRIS, LIPA ####[facility] [address]djysj[address] [place] [address]Dr. Yilan ChangCreatinine [Mass/Vol]1.08 mg/dLNormal 0.70-1.30The [facility] HospitalComment on above:Performed By: #### CMP, CHRIS, LIPA ####[facility] [address]jtgcc[address] [place] [address]Dr. Yilan ChangEGFR-AF CENTRAL AFRICAN>60Normal>=60The [facility] HospitalComment on above: Performed By: #### CMP, CHRIS, LIPA ####[facility] Uehwnmlckt[address] [place] [address]Dr. Yilan ChangEGFR-NON AF CENTRAL AFRICAN>60Normal>=60The [facility] HospitalComment on above:Performed By: #### CMP, CHRIS, LIPA ####[facility] Sutyjajwdg[address] [place], [place] [address]Dr. Yilan Rosario Globulin (S) [Mass/Vol]4.1 g/dLNormalThe [facility] HospitalComment on above: Performed By: #### CMP, CHRIS, LIPA ####[facility] Gmrgtvpfcn01[address] [place], [place] [address]Dr. Yilan ChangGlucose [Mass/Vol]119 mg/dLCritically qnhj75-295Bjn [facility] HospitalComment on above:Performed By: #### CMP, CHRIS, LIPA ####[facility] Xefwicxsxl96[address] [place], [place] [address]Dr. Yilan ChangPotassium [Moles/Vol]4.9 mmol/LNormal3.5-5.1The [facility] HospitalComment on above:Performed By: #### CMP, CHRIS, LIPA ####[facility] Xrwcbyxltc[address] [place], [place] [address]Dr. Yilan ChangProtein [Mass/Vol]8.0 g/dLNormal6.4-8.2The [facility] HospitalComment on above:Performed By: #### CMP, CHRIS, LIPA ####[facility] [address]qef[address] [place] [address]Dr. Yilan ChangSodium [Moles/Vol]140 mmol/LNormal 136-145The [facility] HospitalComment on above:Performed By: #### CMP, CHRIS, LIPA ####[facility] [address]ryyfg[address] [place] [address]Dr. Yilan ChangUrea nitrogen [Mass/Vol]16.0 mg/dLNormal7.0-18.0The [facility] Comment on above:Performed By: #### CMP, CHRIS, LIPA ####[facility] Kjzglxvyqz52[address] [place], [place] [address]Dr. Yilan ChangUrea nitrogen/Creatinine [Mass ratio]14.8 mg/mgNormalThe [facility] HospitalComment on above:Performed By: #### CMP, CHRIS, LIPA ####[facility] Uhlxztnyge[address] [place], [place] [address]Dr. Yilan ChangCBC AUTO DIFFon 02-18-2022 BASO #0.1 103/ulNormal0.0-0.1The [facility] HospitalComment on above:Performed By: #### CBC ####[facility] Dpvtxxfayp74[address] [place], [place] [address]Dr.Yilan ChangBasophils/100 WBC (Bld)0.9 %Normal0.2-2.0The [facility] HospitalComment on above:Performed By: #### CBC ####[facility] Prchlhfkca12[address] [place], [place] [address]Dr.Yilan ChangEO #0.4 103/ul Normal0.0-0.7The [facility] HospitalComment on above:Performed By: #### CBC ####[facility] Yrdujaovns[address] [place], [place] [address]Dr. Yilan ChangEosinophils/100 WBC (Bld)4.7 %Normal0.9-7.0The [facility] Comment on above:Performed By: #### CBC ####[facility] Arrupxmxhk94[address] [place], [place] [address]Dr.Yilan ChangErythrocyte distribution width (RBC) [Ratio]13.2 %Zjkhfh62.0-15.0The [facility] HospitalComment on above: Performed By: #### CBC ####[facility] Ajoqzozefu[address] [place], [place] [address]Dr.Domi RosarioHematocrit (Bld) [Volume fraction]43.1 % Nzbgqx35.0-54.0The [facility] HospitalComment on above:Performed By: #### CBC ####[facility] Eywjhqnvqq09[address] [place], [place] [address]Dr. Domi RosarioHemoglobin (Bld) [Mass/Vol]14.2 g/uXOoflba90.0-18.0The [facility] HospitalComment on above:Performed By: #### CBC ####[facility] Jdusvqmbak[address] [place], [place] [address]Dr.Domi ChangIG #0.01 10e3/ulNormal0.00-0.03The [facility] HospitalComment on above:Performed By: #### CBC ####[facility] Vhhhygmktv[address] [place], [place] [address]Dr. Domi ChangIG %0.1 %Normal0.0-0.5The [facility] HospitalComment on above:Performed By: #### CBC ####[facility] [address] [place], [place] [address]Dr.Domi RosarioLYMPH #3.0 103/ulNormal1.2-3.8[facility] Comment on above:Performed By: #### CBC ####[facility] [address] [place], [place] [address]Dr.Domi RosarioLymphocytes/100 WBC (Bld)40.0 %Sfgarq34.5-60.0[facility] HospitalComment on above:Performed By: #### CBC ####[facility] Tu[address] [place], [place] [address]Dr. Domi RosarioMANUAL DIFF REQNONormalThe [facility] HospitalComment on above: Performed By: #### CBC ####[facility] [address]ked[address] [place], [place] [address]Dr.Domi RosarioMCH (RBC) [Entitic mass]30.2 pgNormal 25.9-34.0The [facility] HospitalComment on above:Performed By: #### CBC ####[facility] Ycbsithtwf[address] [place], [place] [address]Dr. Domi RosarioHC (RBC) [Mass/Vol]32.9 g/wLBfxnjv29.9-35.2[facility] Comment on above:Performed By: #### CBC ####[facility] Ydgrcmpyga2[address] [place], [place] [address]Dr.Domi RosarioV (RBC) [Entitic vol]91.7 fL Ucfrxg55.0-94.0The [facility] HospitalComment on above:Performed By: #### CBC ####[facility] Yqimfhigdz[address] [place], [place] [address]Dr. Domi RosarioMONO #0.8 103/ulNormal0.3-0.8The [facility] HospitalComment on above: Performed By: #### CBC ####[facility] Oohzxootcy[address] [place], [place] [address]Dr.Domi RosarioMonocytes/100 WBC (Bld)10.3 %Normal 1.7-12.0The [facility] HospitalComment on above:Performed By: #### CBC ####[facility] Jtarxmhdxu94[address] [place], [place] [address]Dr. Domi RosarioNEUT #3.3 103/ulNormal1.4-6.5The [facility] HospitalComment on above: Performed By: #### CBC ####[facility] Myqmcvqrma[address] [place], [place] [address]Dr.Domi RosarioNeutrophils/100 WBC (Bld)44.0 %Normal 43.0-75.0The [facility] HospitalComment on above:Performed By: #### CBC ####[facility] Gvxffnuzmi94[address] [place], [place] [address]Dr. Domi RosarioPlatelet mean volume (Bld) [Entitic vol]9.7 fLNormal9.5-13.5The [facility] HospitalComment on above:Performed By: #### CBC ####[facility] [address] [place] [id number].Domi GzpcbNAH671 103/ul Xftvjj749-505Zih [facility] on above:Performed By: #### CBC ####[facility] [address] [place] [address]Dr. Domi ChangRBC4.70 106/ulNormal4.70-6.10The [facility] HospitalComhelen [facility] on above: Performed By: #### CBC ####[facility] [address] [place] [address]Dr.Domi ChangWBC7.6 103/ulNormal4.0-11.0The [facility] HospitalComhelen [facility] on above:Performed By: #### CBC ####[facility] Vssgqeexje[address] [place], [place] [address]Dr.Domi RosarioLIPID PROFILEon [id number]-HDL RATIO NORMSEE [facility] CenterComhel[facility] on above:Result Comment: 3.3 - 4.4 LOW RISK 4.4 - 7.1 AVERAGE RISK 7.1 - 11.0 MODERATE RISK >11.0 HIGH RISKPerformed By: #### MG, CMP, LIPID ####[facility] Eivrwldykq[address] [place], [place] [address]Dr. Domi Rosario Cholesterol [Mass/Vol]121 mg/dLNormal<=200The [facility] on above: Performed By: #### MG, CMP, LIPID ####[facility] [address]xcg[address] [place] [address]Dr. Domi RosarioCholesterol in HDL [Mass/Vol]47 mg/dL Ybzooo21-73Nok [facility] on above:Performed By: #### MG, CMP, LIPID ####[facility] Epmcrgjkwz[address] [place], [place] [address]Dr. Domi RosarioCholesterol in LDL [Mass/Vol]58.4 mg/dLLancaster Municipal Hospital on above:Performed By: #### MG, CMP, LIPID ####[facility] Arsocctmpq[address] [place], [place] [address]Dr. Domi Rosario Cholesterol.total/Cholesterol in HDL [Mass ratio]2.6 {ratio}NormalSelect Medical [facility] Clinic [facility] Hospital, Edwin Shawment on above:Performed By: #### MG, CMP, LIPID ####[facility] [address]emt[address] [place] [address]Dr. Domi RosarioHDL NORMAL> or = 60 mg/dl - LOW CARDIOVASCULAR RISK <40 mg/dl - HIGH CARDIOVASCULAR RISKNormal The [facility] HospitalComment on above:Performed By: #### MG, CMP, LIPID ####[facility] [address]ocs[address] [place] [address]Dr. Domi RosarioLDL CALC NORMALSEE BELOWOhio State East HospitalComment on above: Result Comment: <100 mg/dl OPTIMAL 100 - 129 mg/dl NEAR OR ABOVE OPTIMAL 130 - 159 mg/dl BORDERLINE HIGH 160 - 189 mg/dl HIGH >190 mg/dl VERY HIGHPerformed By: #### MG, CMP, LIPID ####[facility] Nyq[address]vbizk[address] [place] [address]DrBert RosarioTriglyceride [Mass/Vol]78 mg/dLNormal <=150The [facility] HospitalComhelen newberry [facility] hospital on above:Performed By: #### MG, CMP, LIPID ####[facility] [address]fktusrcr[address] [place] [address]Dr. Domi RosarioVLDL CALC15.6 mg/dLNoMercy Health Allen HospitalComment on above: Performed By: #### MG, CMP, LIPID ####[facility] Rubvxqcxda[address] [place] [address]DrBert RosarioMAGNESIUMon 33-53-9376Nlopwkems [Mass/Vol]1.9 mg/dLNormal1.8-2.4The [facility] HospitalComment on above:Performed By: #### MG, CMP, LIPID #### [facility] [address] [place] [address] [address] Domi Morrell 14(COMP METB)on 55-16-1987Rwgplps [Mass/Vol]3.9 g/dLNormal 3.4-5.0The [facility] HospitalComment on above:Performed By: #### MG, CMP, LIPID ####[facility] [address]jx[address] [place] [address]Dr. Yilan ChangAlbumin/Globulin [Mass ratio]1.0 {ratio}NormalGenesis Hospital Comment on above:Performed By: #### MG, CMP, LIPID ####[facility] U[address]ygfid[address] [place] [address]Dr. Yilan ChangALP [Catalytic activity/Vol]62 U/CSjnigu56-808Azv [facility] HospitalComment on above:Performed By: #### MG, CMP, LIPID ####[facility] [address]ykl[address] [place] [address]Dr. Yilan ChangALT [Catalytic activity/Vol]22 U/L Mguzxb79-27Yqd [facility] HospitalComment on above:Performed By: #### MG, CMP, LIPID ####[facility] Jmbzkuuivb[address] [place], [place] [address]Dr. Yilan ChangAnion gap [Moles/Vol]10.4 mmol/LNormalThe [facility] Comment on above:Performed By: #### MG, CMP, LIPID ####[facility] Hkvlkwhuyf7[address] [place], [place] [address]Dr. Yilan ChangAST [Catalytic activity/Vol]18 U/TZxamln41-87Ljs [facility] HospitalComment on above:Performed By: #### MG, CMP, LIPID ####[facility] Insomklbzx[address] [place] [address]Dr. Yilan ChangBilirubin [Mass/Vol]0.6 mg/dLNormal 0.2-1.0The [facility] HospitalComment on above:Performed By: #### MG, CMP, LIPID ####[facility] Infztveeuk[address] [place], [place] [address]Dr. Yilan ChangCalcium [Mass/Vol]8.9 mg/dLNormal8.5-10.1The [facility] HospitalComment on above:Performed By: #### MG, CMP, LIPID ####[facility] Ckkwqdjkiz8[address] [place], [place] [address]Dr. Yilan ChangChloride [Moles/Vol]103 mmol/UFmquvi28-990Wlk [facility] HospitalComment on above:Performed By: #### MG, CMP, LIPID ####[facility] Z[address]fgmlqwlu6[address] [place] [address]Dr. Yilan ChangCO2 [Moles/Vol]27.9 mmol/BTakuid25.0-32.0The [facility] HospitalComment on above:Performed By: #### MG, CMP, LIPID ####[facility] Drhptlhoqk50[address] [place], [place] [address]Dr. Yilan ChangCreatinine [Mass/Vol]1.02 mg/dLNormal0.70-1.30The [facility] HospitalComment on above: Performed By: #### MG, CMP, LIPID ####[facility] Bdjbwrcgzo2[address] [place], [place] [address]Dr. Yilan ChangEGFR-AF CENTRAL AFRICAN>60Normal>=60The [facility] HospitalComment on above:Performed By: #### MG, CMP, LIPID ####[facility] Ialauhnvcd69[address] [place], [place] [address]Dr. Yilan Rosario EGFR-NON AF CENTRAL AFRICAN>60Normal>=60The [facility] on above:Performed By: #### MG, CMP, LIPID ####[facility] Rgfafnzffo[address] [place], [place] [address]Dr. Yilan ChangGlobulin (S) [Mass/Vol]3.9 g/dLNormal The [facility] HospitalComment on above:Performed By: #### MG, CMP, LIPID ####[facility] Eroryvyfdm4[address] [place], [place] [address]Dr. Yilan ChangGlucose [Mass/Vol]95 mg/eXLubfmp88-498Hwd [facility] HospitalComment on above:Performed By: #### MG, CMP, LIPID ####[facility] Ofnaqvldkx6[address] [place], [place] [address]Dr. Yilan ChangPotassium [Moles/Vol]4.3 mmol/LNormal3.5-5.1The [facility] HospitalComment on above:Performed By: #### MG, CMP, LIPID ####[facility] [address]hpun[address] [place], [place] [address]Br. Yilan ChangProtein [Mass/Vol]7.8 g/dLNormal6.4-8.2[facility] Comment on above:Performed By: #### MG, CMP, LIPID ####[facility] Vkl[address]qq[address] [place], [place] [address]Nb. Yilan ChangSodium [Moles/Vol]137 mmol/UVwpzrf041-598Fga [facility] HospitalComment on above: Performed By: #### MG, CMP, LIPID ####[facility] [address]ofh[address] [place], [place] [address]Xd. Yilan ChangUrea nitrogen [Mass/Vol]16.0 mg/dL Normal7.0-18.0The [facility] HospitalComment on above:Performed By: #### MG, CMP, LIPID ####[facility] [address]ss[address] [place] [id number]. Yilan ChangUrea nitrogen/Creatinine [Mass ratio]15.7 mg/mgNormalThe [facility] HospitalComment on above:Performed By: #### MG, CMP, LIPID ####[facility] [address]enthb[address] [place] [id number]. Domi Rosario Basophils Auto (Bld) [#/Vol]Ordered By: Prince Velazquez on 14-02-2298Dsxmrduvl (Bld) [#/Vol]0.1 10*3/uL0.0-0.2FCleveland Clinic Mentor HospitalBasophils/100 WBC Auto (Bld)Ordered By: Prince Velazquez on 14-91-4365Ugfixoqfr/100 WBC (Bld)1.1 %.[facility] HospitalCreatinine and Glomerular filtration rate.predicted panel (S/P/Bld)Ordered By: Prince Velazquez on 40-22-6065Zwrbrnvdlg [Mass/Vol]1.09 mg/dL0.64-1.27[facility] HospitalEosinophils Auto (Bld) [#/Vol]Ordered By: Prince Velazquez on 59-86-5853Hensmvzjjwh (Bld) [#/Vol] 0.3 10*3/uL0.0-0.45[facility] HospitalEosinophils/100 WBC Auto (Bld)Ordered By: Prince Velazquez on 91-13-6263Cvrfuizopkp/100 WBC (Bld)4.2 %. [facility] HospitalErythrocyte distribution width Auto (RBC) [Ratio]Ordered By: Prince Velazquez on 34-23-4635Zumtvddiigr distribution width (RBC) [Ratio]13.4 %12.0-14.8[facility] HospitalErythrocyte sedimentation rate by Photometric methodOrdered By: Prince Velazquez on 02-02-2022 ESR Photometric method (d) [Velocity]19 mm/hr0-19[facility] HospitalEstimated glomerular filtration rate (GFR) non- AmericanOrdered By: Prince Velazquez on 05-19-5807XNA/1.73 sq M.predicted among non-blacks MDRD (S/P/Bld) [Vol rate/Area]> 60 mL/MinBucyrus Community HospitalHematocrit Auto (Bld) [Volume fraction]Ordered By: Prince Velazquez on 16-88-5384Weftiqfuke (Bld) [Volume fraction]43.7 %38.8-50.0[facility] Hemoglobin [Mass/volume] in BloodOrdered By: Prince Velazquez on 02-02-2022 Hemoglobin (Bld) [Mass/Vol]14.6 g/dL13.0-17.0[facility] - Hematology and Cell countsOrdered By: Prince Velazquez on 02-02-2022 Nucleated RBC/100 WBC (Bld) [Ratio]0.2 %0-0.5FC[facility] Hospital Leukocytes [#/volume] in Blood by Automated countOrdered By: Prince Velazquez on 13-81-6174GWI (Bld) [#/Vol]7.6 10*3/uL4.5-11.0[facility] Lymphocytes Auto (Bld) [#/Vol]Ordered By: Prince Velazquez on 02-02-2022 Lymphocytes (Bld) [#/Vol]2.5 10*3/uL1.00-4.8[facility] Lymphocytes/100 WBC Auto (Bld)Ordered By: Prince Velazquez on 02-02-2022 Lymphocytes/100 WBC (Bld)32.5 %.[facility] HospitalH Auto (RBC) [Entitic mass]Ordered By: Prince Velazquez on 96-27-6086PBK (RBC) [Entitic mass] 31.1 pg27.5-35.2FCleveland Clinic Mentor HospitalMCHC Auto (RBC) [Mass/Vol] Ordered By: Prince Velazquez on 93-11-8967HKVZ (RBC) [Mass/Vol]33.4 g/dL32.5-35.6 [facility] HospitalMCV Auto (RBC) [Entitic vol]Ordered By: Prince Velazquez on 37-83-3691LEH (RBC) [Entitic vol]92.9 fL83.5-101[facility] HospitalMonocytes Auto (Bld) [#/Vol]Ordered By: Prince Velazquez on 92-86-0055Efndzchzw (Bld) [#/Vol]0.7 10*3/uL0.0-0.8[facility] HospitalMonocytes/100 WBC Auto (Bld)Ordered By: Prince Velazquez on 02-02-2022 Monocytes/100 WBC (Bld)8.7 %.[facility] HospitalNeutrophils Auto (Bld) [#/Vol]Ordered By: Prince Velazquez on 41-09-0445Pnafkycaqar (Bld) [#/Vol] 4.1 10*3/uL1.8-7.7FCleveland Clinic Mentor HospitalNeutrophils/100 WBC Auto (Bld)Ordered By: Prince Velazquez on 16-35-8038Qjreiiwqgom/100 WBC (Bld)53.5 %. [facility] HospitalNo Panel InformationOrdered By: Prince Velazquez on 84-99-4696Nhsmcgbzp GFR ()> 60 mL/MinBucyrus Community HospitalComment on above:GFR estimated reference range: According to KDOQI guidelines, <60 ml/min/1.73m2 is sufficient todiagnose a patient with chronic kidney disease.Pharmacy Creatinine Clearance (ChemN/[facility] HospitalPlatelet mean volume Auto (Bld) [Entitic vol]Ordered By: Prince Velazquez on 99-26-1064Gwzgmpel mean volume (Bld) [Entitic vol]8.0 fL6.6-10.1FCleveland Clinic Mentor HospitalPlatelets Auto (Bld) [#/Vol]Ordered By: Prince Velazquez on 71-98-6814Frycgbanq (Bld) [#/Vol]197 10*3/jI183-258GzufbpkmyBucyrus Community HospitalRBC Auto (Bld) [#/Vol]Ordered By: Prince Velazquez on 55-34-5495YOE (Bld) [#/Vol]4.70 10*6/uL3.90-5.60[facility] Hospitalerum or plasma alanine aminotransferase measurement without P-5'-P (enzymatic activiOrdered By: Prince Velazquez on 26-71-6507UNH No additional P-5'-P [Catalytic activity/Vol]17 U/Z76-01GuezkyxtiAshtabula General Hospitalerum or plasma alkaline phosphatase measurement (enzymatic activity/volume)Ordered By: Prince Velazquez on 02-02-2022 ALP [Catalytic activity/Vol]62 U/X44-87JmjxkhnuzAshtabula General Hospitalerum or plasma aspartate aminotransferase measurement (enzymatic activity/volume)Ordered By: Prince Velazquez on 62-57-9065OLE [Catalytic activity/Vol]23 U/B66-41EtiasqggaAshtabula General Hospitalerum or plasma urea nitrogen measurement (mass/volume) Ordered By: Prince Velazquez on 08-01-6524Qfbm nitrogen [Mass/Vol]9 mg/dL9-23 [facility] HospitalBasophils Auto (Bld) [#/Vol]Ordered By: Prince Velazquez on 96-74-2351Dhjwozwhf (Bld) [#/Vol]0.1 10*3/uL0.0-0.2FC[facility] HospitalBasophils/100 WBC Auto (Bld)Ordered By: Prince Velazquez on 51-46-2762Zarrwrlno/100 WBC (Bld)1.0 %[facility] HospitalBlood hemoglobin measurement (mass/volume)Ordered By: Prince Velazquez on 10-13-2021 Hemoglobin (Bld) [Mass/Vol]14.0 g/dL13.0-17.0[facility] Blood leukocytes automated count (number/volume)Ordered By: Prince Velazquez on 57-45-1601YAO (Bld) [#/Vol]6.1 10*3/uL4.5-11.0[facility] Creatinine and Glomerular filtration rate.predicted panel (S/P/Bld)Ordered By: Prince Velazquez on 13-26-1119Lfzjbyezer [Mass/Vol]1.05 mg/dL0.64-1.27[facility] HospitalEosinophils Auto (Bld) [#/Vol]Ordered By: Prince Velazquez on 17-58-2264Rrgjkcrjbpb (Bld) [#/Vol]0.2 10*3/uL0.0-0.45[facility] HospitalEosinophils/100 WBC Auto (Bld)Ordered By: Prince Velazquez on 41-83-4764Tirzhyfqggy/100 WBC (Bld)3.7 %[facility] Erythrocyte distribution width Auto (RBC) [Ratio]Ordered By: Prince Velazquez on 20-20-4426Bqpdoefzjrx distribution width (RBC) [Ratio]13.3 %12.0-14.8[facility] HospitalErythrocyte sedimentation rate by Photometric method Ordered By: Prince Velazquez on 46-40-9396UIO Photometric method (Bld) [Velocity] 22 mm/hr0-19[facility] HospitalEstimated glomerular filtration rate (GFR) non- AmericanOrdered By: Prince Velazquez on 05-99-1576RRE/1.73 sq M.predicted among non-blacks MDRD (S/P/Bld) [Vol rate/Area]> 60 mL/Min [facility] HospitalHematocrit Auto (Bld) [Volume fraction]Ordered By: Prince Velazquez on 96-19-4723Zrwkfgdxei (Bld) [Volume fraction]41.6 % 38.8-50.0[facility] HospitalLaboratory - Hematology and Cell countsOrdered By: Prince Velazquez on 09-75-6094Aepiypxar RBC/100 WBC (Bld) [Ratio]0.1 %0-0.5FCleveland Clinic Mentor HospitalLymphocytes Auto (Bld) [#/Vol] Ordered By: Prince Velazquez on 17-81-7033Hcknikwyfnu (Bld) [#/Vol]2.0 10*3/uL 1.00-4.8[facility] HospitalLymphocytes/100 WBC Auto (Bld)Ordered By: Prince Velazquez on 85-01-1469Flhrhbpkwcn/100 WBC (Bld)32.6 %[facility] HospitalH Auto (RBC) [Entitic mass]Ordered By: Prince Velazquez on 63-75-9673JEU (RBC) [Entitic mass]31.0 pg27.5-35.2FC[facility] HospitalMCHC Auto (RBC) [Mass/Vol]Ordered By: Prince Velazquez on 78-21-9470PEDP (RBC) [Mass/Vol]33.6 g/dL32.5-35.6FCleveland Clinic Mentor HospitalMCV Auto (RBC) [Entitic vol]Ordered By: Prince Velazquez on 56-64-3270GOJ (RBC) [Entitic vol]92.2 fL83.5-101[facility] HospitalMonocytes Auto (Bld) [#/Vol] Ordered By: Prince Velazquez on 08-33-4879Zzibrrrfb (Bld) [#/Vol]0.6 10*3/uL 0.0-0.8[facility] HospitalMonocytes/100 WBC Auto (Bld)Ordered By: Prince Velazquez on 00-16-4274Yqaqbxbln/100 WBC (Bld)10.4 %[facility] HospitalNeutrophils Auto (Bld) [#/Vol]Ordered By: Prince Velazquez on 07-07-3519Uemimdzzzgd (Bld) [#/Vol]3.2 10*3/uL1.8-7.7FC[facility] Ment[facility] HospitalNeutrophils/100 WBC Auto (Bld)Ordered By: Prince Velazquez on 10-13-2021 Neutrophils/100 WBC (Bld)52.3 %[facility] HospitalNo Panel InformationOrdered By: Prince Velazquez on 31-20-9552Yqwqjqwgm GFR ()> 60 mL/MinBucyrus Community HospitalComment on above:GFR estimated reference range: According to KDOQI guidelines, <60 ml/min/1.73m2 is sufficient todiagnose a patient with chronic kidney disease.Pharmacy Creatinine Clearance (ChemN/[facility] HospitalPlatelet mean volume Auto (Bld) [Entitic vol]Ordered By: Prince Velazquez on 90-06-3052Cmdggoes mean volume (Bld) [Entitic vol]8.8 fL6.6-10.1FCleveland Clinic Mentor HospitalPlatelets Auto (Bld) [#/Vol]Ordered By: Prince Velazquez on 57-64-6999Amiatibxn (Bld) [#/Vol]179 10*3/kZ977-867UjiassgcpBucyrus Community HospitalRBC Auto (Bld) [#/Vol]Ordered By: Prince Velazquez on 30-56-8022GDC (Bld) [#/Vol]4.51 10*6/uL3.90-5.60[facility] Hospitalerum or plasma alanine aminotransferase measurement without P-5'-P (enzymatic activiOrdered By: Prince Velazquez on 15-18-5265WMS No additional P-5'-P [Catalytic activity/Vol]26 U/V53-47XvofogqrbAshtabula General Hospitalerum or plasma alkaline phosphatase measurement (enzymatic activity/volume)Ordered By: Prince Velazquez on 24-53-8658LDP [Catalytic activity/Vol]57 U/U53-10KsrfzucbvAshtabula General Hospitalerum or plasma aspartate aminotransferase measurement (enzymatic activity/volume)Ordered By: Prince Velazquez on 82-33-2352EPI [Catalytic activity/Vol]26 U/E63-51JcpdddvwfAshtabula General Hospitalerum or plasma urea nitrogen measurement (mass/volume) Ordered By: Prince Velazquez on 22-07-3195Ijoj nitrogen [Mass/Vol]9 mg/dL9-23 [facility] HospitalCBC (INCLUDES DIFF/PLT)on 35-54-6670Kkqhqgeae (Bld) [#/Vol]0.068 10*3/uLNormal0-200Quest DiagnosticsComment on above:Performed By: #### 5699, 01869, 6020, 809 #### [facility] of [place] [address] [address] Keeper: Jak Lanza MDBasophils/100 WBC (Bld)0.9 %NormalQuest DiagnosticsComment on above:Performed By: #### 6399, 53331, 7600, 809 #### [facility] of [address], [address] [place] [address] [employer] Keeper: Jak Lanza MDEosinophils (Bld) [#/Vol]0.285 10*3/uLNormal 15-500Quest DiagnosticsComment on above:Performed By: #### 6399, 22874, 7600, 809 #### [facility] of [place] [address] [address] Keeper: Jak Lanza MDEosinophils/100 WBC (Bld)3.8 %NormalQuest DiagnosticsComment on above:Performed By: #### 6399, 88053, 7600, 809 #### [facility] of [place] [address] [address] Keeper: Jak Lanza MDErythrocyte distribution width (RBC) [Ratio] 12.8 %Prmbin45.0-15.0Quest DiagnosticsComment on above:Performed By: #### 6399, 39314, 7600, 809 #### [facility] of [place] [address] [address] Keeper: Jak Lanza MDHematocrit (Bld) [Volume fraction]41.9 %Normal 38.5-50.0Quest DiagnosticsComment on above:Performed By: #### 6399, 80076, 7600, 809 #### [facility] of [place] [address] [address] Keeper: Jak Lanza MDHemoglobin (Bld) [Mass/Vol]13.9 g/dLNormal 13.2-17.1Quest DiagnosticsComment on above:Performed By: #### 6399, 72621, 7600, 809 #### [facility] of [address], [address] [place] [address] [employer] Keeper: Jak Lanza MDLymphocytes (Bld) [#/Vol]2.873 10*3/uLNormal 850-3900Quest DiagnosticsComment on above:Performed By: #### 6399, 00609, 7600, 809 #### [facility] of [address], [address] [place] [address] [employer] Keeper: Jak Lanza MDLymphocytes/100 WBC (Bld)38.3 %NormalQuest DiagnosticsComment on above:Performed By: #### 6399, 12281, 7600, 809 #### [facility] of [address], [address] [place] [address] [employer] Keeper: Jak Lanza MDMCH (RBC) [Entitic mass]30.1 fbSxjmhp71.0-33.0 Quest DiagnosticsComment on above:Performed By: #### 6399, 72287, 7600, 809 #### [facility] of [place] [address] [address] Keeper: Jak ALYCHC (RBC) [Mass/Vol]33.2 g/iQYqjacf54.0-36.0 [facility] DiagnosticsComment on above:Performed By: #### 6399, 92167, 7600, 809 #### [facility] of [address], [address] [place] [address] [employer] Keeper: Jak Lanza MDMCV (RBC) [Entitic vol]90.7 mZUcenbf79.0-100.0 [facility] DiagnosticsComment on above:Performed By: #### 6399, 86514, 7600, 809 #### [facility] of [place] [address] [address] [address] Keeper: Jak Lanza MDMonocytes (Bld) [#/Vol]0.645 10*3/uLNormal 200-950Quest DiagnosticsComment on above:Performed By: #### 6399, 77778, 7600, 809 #### [facility] of [address], [address] [place] [address] [employer] Keeper: Jak Lanza MDMonocytes/100 WBC (Bld)8.6 %NormalQuest DiagnosticsComment on above:Performed By: #### 6399, 97832, 7600, 809 #### [facility] of [address], [address] [place] [address] [employer] Keeper: Jak Lanza MDNeutrophils (Bld) [#/Vol]3.63 10*3/uLNormal 1500-7800Quest DiagnosticsComment on above:Performed By: #### 6399, 22313, 7600, 809 #### [facility] of [address], [address] [place] [address] [employer] Keeper: Jak Lanza MDNeutrophils/100 WBC (Bld)48.4 %NormalQuest DiagnosticsComment on above:Performed By: #### 6399, 62907, 7600, 809 #### [facility] of [address], [address] [place] [address] [employer] Keeper: Jak Lanza MDPlatelet mean volume (Bld) [Entitic vol]10.2 fLNormal7.5-12.5Quest DiagnosticsComment on above:Performed By: #### 6399, 62696, 7600, 809 #### [facility] of [address], [address] [place] [address] [employer] Keeper: Jak Lanza MDPlatelets (Bld) [#/Vol]238 10*3/uLNormal 140-400Quest DiagnosticsComment on above:Performed By: #### 6399, 43589, 7600, 809 #### [facility] of [address], [address] [place] [address] [employer] Keeper: Jak Lanza MDRBC (Bld) [#/Vol]4.62 10*6/uLNormal4.20-5.80 [facility] DiagnosticsComment on above:Performed By: #### 6399, 35914, 7600, 809 #### [facility] of [address], [address] [place] [address] [employer] Keeper: Jak Lanza MDCOLUMBIA UNIVERSITY [facility] ([facility] [#/Vol]7.5 10*3/uLNormal3.8-10.8 [facility] DiagnosticsComment on above:Performed By: #### 6399, 18860, 7600, 809 #### [facility] of [address], [address] [place] [address] [employer] Keeper: Jak Lanza [facility] CITYREHENSIVE METABOLIC PANEL 03-12-2021 Albumin [Mass/Vol]4.2 g/dLNormal3.6-5.1Quest DiagnosticsComment on above: Performed By: #### 6399, 93568, 7600, 809 #### [facility] of [address], [address] [place] [address] [employer] Keeper: Jak Lanza MDAlbumin/Globulin [Mass ratio]1.2 {ratio}Normal 1.0-2.5Quest DiagnosticsComment on above:Performed By: #### 6399, 14804, 7600, 809 #### [facility] of [address], [address] [place] [address] [employer] Keeper: Jak Lanza MDALP [Catalytic activity/Vol]63 U/KXtejyc87-628 [facility] DiagnosticsComment on above:Performed By: #### 6399, 79645, 7600, 809 #### [facility] of [address], [address] [place] [address] [employer] Keeper: Jak Lanza MDALT [Catalytic activity/Vol]14 U/[id number] [facility] DiagnosticsComment on above:Performed By: #### [id number], [id number], 7600, 809 #### [facility] of [address], [address] [place] [address] [employer] Keeper: Jak Lanza MDAST [Catalytic activity/Vol]15 U/[id number] [facility] DiagnosticsComment on above:Performed By: #### [id number], [id number], 7600, 809 #### [facility] of [address], [address] [place] [address] [employer] Keeper: Jak Lanza MDBilirubin [Mass/Vol]0.6 mg/dLNormal0.2-1.2 [facility] DiagnosticsComment on above:Performed By: #### 6399, 71811, 7600, 809 #### [facility] of [address], [address] [place] [address] Joss House Keeper: Jak Lanza MDBUN/CREATININE RATIONOT APPLICABLENormal6-22 [facility] DiagnosticsComment on above:Performed By: #### 6399, 39552, 7600, 809 #### [facility] of [address], [address] [place] [address] Joss House Keeper: Jak Lanza MDCalcium [Mass/Vol]9.4 mg/dLNormal8.6-10.3Quest DiagnosticsComment on above:Performed By: #### 6399, 75627, 7600, 809 #### [facility] of [address], [address] [place] [address] Joss House Keeper: Jak Lanza MDChloride [Moles/Vol]106 mmol/YSlwwzf24-833 [facility] DiagnosticsComment on above:Performed By: #### 6399, 89788, 7600, 809 #### [facility] of [address], [address] [place] [address] Joss House Keeper: Jak Lanza MDCO2 [Moles/Vol]26 mmol/AImgwmt66-14Ueqpl DiagnosticsComment on above:Performed By: #### 6399, 26610, 7600, 809 #### [facility] of [address], [address] [place] [address] Joss House Keeper: Jak Lanza MDCreatinine [Mass/Vol]1.22 mg/dLNormal0.70-1.25 [facility] DiagnosticsComment on above:Result Comment: For patients >49 years of age, the reference limit for Creatinine is approximately 13% higher for people identified as -Chinese.Performed By: #### 6399, 57742, 7600, 809 #### [facility] [place] [address] Joss House Keeper: Jak Lanza MDeGFR NON-AFR. VJVYGQGL37 mL/min/1.66k4Mnqwgx> OR = 60Quest DiagnosticsComment on above:Performed By: #### 6399, 49672, 7600, 809 #### [facility] [place] [address] Joss House Keeper: Jak Lanza MDGFR/1.73 sq M.predicted among blacks MDRD (S/P/Bld) [Vol rate/Area]72 mL/min/{1.73_m2}Normal> OR = 60[facility] Comment on above:Performed By: #### 6399, 06764, 7600, 809 #### [facility] [place] [address] Joss House Keeper: Jak Lanza MDGlobulin (S) [Mass/Vol]3.4 g/dLNormal1.9-3.7 [facility] DiagnosticsComment on above:Performed By: #### 6399, 63364, 7600, 809 #### [facility] [place] [address] Joss House Keeper: Jak Lanza MDGlucose [Mass/Vol]85 mg/eUIycusc83-43Rsuco DiagnosticsComment on above:Result Comment: Fasting reference intervalPerformed By: #### 6399, 52769, 7600, 809 #### [facility] [place] [address] Joss House Keeper: Jak Lanza MDPotassium [Moles/Vol]4.6 mmol/LNormal3.5-5.3 [facility]osticsComment on above:Performed By: #### 6399, 67938, 7600, 809 #### [facility] of [address], [address] [place] [address] Joss House Keeper: Jak Lanza MDProtein [Mass/Vol]7.6 g/dLNormal6.1-8.1Quest DiagnosticsComment on above:Performed By: #### 6399, 48701, 7600, 809 #### [facility] of [address], [address] [place] [address] Joss House Keeper: Jak Lanza MDSodium [Moles/Vol]140 mmol/AVghnrw090-526Jvuoy DiagnosticsComment on above:Performed By: #### 6399, 27872, 7600, 809 #### [facility] of [address], [address] [place] [address] Joss House Keeper: Jak Lanza MDUrea nitrogen [Mass/Vol]17 mg/dLNormal7-25 [facility] DiagnosticsComment on above:Performed By: #### 6399, 78850, 7600, 809 #### [facility] of [address], [address] [place] [address] Joss House Keeper: Jak Lanza MDLIPID PANEL, STANDARD 74-32-3245Udtrlgtpnfr [Mass/Vol]129 mg/dLNormal<200Quest DiagnosticsComment on above:Order Comment: FASTING:YES FASTING: YESPerformed By: #### 6399, 62730, 7600, 809 #### [facility] of [address], [address] [place] [address] Joss House Keeper: Jak Lanza MDCholesterol in HDL [Mass/Vol]44 mg/dLNormal> OR = 40Quest DiagnosticsComment on above:Order Comment: FASTING:YES FASTING: YESPerformed By: #### 6399, 84927, 7600, 809 #### [facility] of [address], [address] [place] [address] Joss House Keeper: Jak GUTIERREZholesterol in LDL [Mass/Vol]65 mg/dLNormal [facility] DiagnosticsComment on [...] LDL-C. Parrish JACOBSEN et al. TUAN. 2013;310(19): 8512-4950 (http://education.[employer].CrowdFlik/faq/MML896)Performed By: #### 6399, 41214, 7600, 809 #### [facility] [address], [address] [place] [address] Joss House Keeper: Jak GUTIERREZholesteropaty.total/Cholesterol in HDL [Mass ratio]2.9 {ratio}Normal<5.0Quest DiagnosticsComment on above:Order Comment: FASTING:YES FASTING: YESPerformed By: #### 6399, 42577, 7600, 809 #### [facility] [address], [address] [place] [address] Joss House Keeper: Jak MARQUEZ HDL BAHDVQBAFEH98 mg/dL (calc)Normal<130 [facility] DiagnosticsComment on above:Order Comment: FASTING:YES FASTING: YESResult Comment: For patients with diabetes plus 1 major ASCVD risk factor, treating to a non-HDL-C goal of <100 mg/dL (LDL-C of <70 mg/dL) is considered a therapeutic option.Performed By: #### 6399, 36847, 7600, 809 #### [facility] [address], [address] [place] [address] Joss House Keeper: Jak Lanza MDTriglyceride [Mass/Vol]115 mg/dLNormal<150 [facility]osticsComment on above:Order Comment: FASTING:YES FASTING: YESPerformed By: #### 6399, 94715, 7600, 809 #### [facility] [address], [address] [place] [id number] Joss House Keeper: Jak Lanza MDSED RATE BY MODIFIED WESTERGRENon 03-12-2021 SED RATE BY MODIFIED WESTERGREN9 mm/hNormal< OR = 20[facility] DiagnosticsComment on above:Performed By: #### 6399, 45009, 7600, 809 #### [facility] [address], [address] [place] [address] Joss House Keeper: Jak Lanza MD.eGFRon 59-89-0497vUMQ AA>60Normal>=60 [facility] WestComment on above:Result Comment: See comment. Performed By: #### EGFR #### [address] [address]dGXQ Non-AA>60Normal>=60[facility] WestComment on above:Result Comment: Stages of Chronic Kidney [...] age = yearsPerformed By: #### EGFR #### [address] [address]Igfyt Metabolic Profileon 00-34-5720Edftl gap [Moles/Vol]16 mmol/LNormal7-17[facility] WestComment on above:Performed By: #### .Automated Diff #### [address] [address]Gbjenry [Mass/Vol]9.0 mg/dLNormal8.5-10.3BCoshocton Regional Medical CenterComment on above:Performed By: #### .Automated Diff #### [address] [address]Ughcgite [Moles/Vol]103 mmol/HNkxiig32-341UfimhqajqRegency Hospital Cleveland WestComment on above:Performed By: #### .Automated Diff #### [address] [address]CI5 [Moles/Vol]20 mmol/UIig52-84JxroabcaqOhiohealth Berger Hospital System Comment on above:Performed By: #### .Automated Diff #### [address] [address]Npudrerqfd [Mass/Vol]1.16 mg/dLNormal0.61-1.24[facility] WestComment on above:Performed By: #### .Automated Diff #### [address] [address]Xoqunre [Mass/Vol]237 mg/eDJojs58-77RaqnqvoivRegency Hospital Cleveland WestComment on above:Performed By: #### .Automated Diff #### [address] [address]Tiflnzwvb [Moles/Vol]4.5 mmol/LNormal3.4-4.8BCoshocton Regional Medical CenterComment on above:Performed By: #### .Automated Diff #### [address] [address]Hkmfsb [Moles/Vol]134 mmol/PNkqayl675-083VwsblysebRegency Hospital Cleveland WestComment on above:Performed By: #### .Automated Diff #### [address] [address]Tkhl nitrogen [Mass/Vol]14 mg/dLNormal8-26[facility] WestComment on above:Performed By: #### .Automated Diff #### [address] [address]Dhvc nitrogen/Creatinine [Mass ratio]12.1 mg/lxQsltul05.0-20.0 [facility] WestComment on above:Performed By: #### .Automated Diff #### [address] [address]YAQ w/ Diffon 79-18-5248Itblaepqbwk distribution width (RBC) [Ratio]13.1 %Rrkhij78.6-14.8BCoshocton Regional Medical CenterComment on above: Performed By: #### .Automated Diff #### [address] [address]Aennoujpea (Bld) [Volume fraction]40.1 %Low41.0-53.0[facility] WestComment on above:Performed By: #### .Automated Diff #### [address] [address]Zsfizncogm (Bld) [Mass/Vol]13.0 g/dLLow13.5-17.5BCoshocton Regional Medical CenterComment on above:Performed By: #### .Automated Diff #### [address] [address]LAZ (RBC) [Entitic mass]29.4 qzSkxrar06.0-35.0[facility] WestComment on above:Performed By: #### .Automated Diff #### [address] [address]OGVU35.5 %Xyzogb59.0-37.0[facility] WestComment on above:Performed By: #### .Automated Diff #### [address] [address]MIS (RBC) [Entitic vol]90.5 kIAvjfgr67.0-100.0[facility] Cleveland WestComment on above:Performed By: #### .Automated Diff #### [address] [address]Fenuibvq933 x10*3/wgMAwkxqg231-439QkccwtjaaRegency Hospital Cleveland WestComment on above:Performed By: #### .Automated Diff #### [facility] [address] [place], [place] [address]Cdsvimzp mean volume (Bld) [Entitic vol]7.6 fLNormal6.7-10.6 [facility] WestComment on above:Performed By: #### .Automated Diff #### [address] [address]ARZ8.43 x10*6/mcLNormal4.30-5.80[facility] Comment on above:Performed By: #### .Automated Diff #### [address] [address]WYM29.0 x10*3/mcLHigh4.5-11.0[facility] Comment on above:Performed By: #### .Automated Diff #### [address] [address]Pdng Autoon 03-68-7513Btth Absolute0.0 x10*3/mcLNormal0.0-0.2 [facility] WestComment on above:Performed By: #### .Automated Diff #### [address] [address]Ufvogxtit/100 WBC (Bld)0.1 %Normal0.0-1.2BCoshocton Regional Medical CenterComment on above:Performed By: #### .Automated Diff #### [address] [address]Orv Absolute0.0 x10*3/mcLNormal0.0-0.4BMercy Health Tiffin Hospital SystemComment on above:Performed By: #### .Automated Diff #### [address] [address]Ddoiwrganef/100 WBC (Bld)0.0 %Normal0.0-6.1BCoshocton Regional Medical CenterComment on above:Performed By: #### .Automated Diff #### [address] [address]Lcpem Absolute1.2 x10*3/mcLNormal1.0-4.8BMercy Health Tiffin Hospital SystemComment on above:Performed By: #### .Automated Diff #### [address] [address]Xmvcdgkrmkn/100 WBC (Bld)7.3 %Low27.2-40.8BMercy Health Tiffin Hospital SystemComment on above:Performed By: #### .Automated Diff #### [address] [address]Wfcd Absolute0.5 x10*3/mcLNormal0.3-1.1BMercy Health Tiffin Hospital SystemComment on above:Performed By: #### .Automated Diff #### [address] [address]Mipzizywr/100 WBC (Bld)3.0 %Low4.7-13.9BMercy Health Tiffin Hospital SystemComment on above:Performed By: #### .Automated Diff #### [address] [address]Ecjtij Hsnljezt65.3 x10*3/mcLHigh1.8-7.7BMercy Health Tiffin Hospital SystemComment on above:Performed By: #### .Automated Diff #### [address] [address]Dfocal Auto89.6 %High47.2-70.8BMercy Health Tiffin Hospital System Comment on above:Performed By: #### .Automated Diff #### [address] [address]Gibhxngtu Clinical Summaryon 05-50-4210Sbktdosgr Clinical Summary[address] [address] [address] [address] Clinical Summary Person Information Name: Elian Cavazos Age: 65 Years : 1955 Sex: Male PCP: Alek Shelton DO Marital Status: Phone: PCP: [phone] Race: White Ethnicity: Not or Language: Bhutanese Visit Id: Visit Reason: Speciality: Acuity: Enc Type: Observation Med Service: Surgery Arrival: 01/19/2021 11:32:01 Discharge: Dispo Type: Address: [address] [place] [address] Diagnosis: Status post total right knee replacement [...] Discharge Patient Education Review and attach ORTHO [facility] Hip/Knee Inpatient Discharge Special Instructions [...] Rate: Peripheral Pulse Rate: (more content not included)...[facility]Or[facility] Progress Noteon 85-57-0831Dtfoduvmno Progress Note Orthopedic: Postoperative day #1 status [...] hrs) Last Charted Temp Oral 36.7 degC (OCT 05 05:59) Heart Rate Peripheral 62 bpm (JAN 20:59) Resp Rate 16 br/min (JAN 20 02:00) SBP H 143mmHg (JAN 20:59) DBP L 55mmHg (JAN 20:59) SpO2 94 % (JAN 20:59) Weight 121.3 kg (JAN 20 05:00) Height [...] myself. Electronically signed by Alex Hayes PA-C 01/20/21 07:[address] [facility] CoV2 Agon 24-04-7666Ueqhkgrn in healthcare?UnknownNoMount St. Mary HospitalComment on above:Performed By: #### [id number] #### [address] [address]Fitto care resident?UnknownNoMount St. [facility] Hospital Comment on above:Performed By: #### CD:[id number] #### [address] [address]Rz ICU?NoNormalRegency Hospital Cleveland WestComment on above: Performed By: #### [id number] #### [address] [address]Arcceexgr status?Not ApplicableNoMount St. Mary HospitalComment on above:Performed By: #### CD:[id number] #### [address] [address]EFBM-CxS-4 (COVID-19) RNA DIEGO+probe Ql (Unsp spec)Normal NegativeRegency Hospital Cleveland WestComment on above:Result Comment: * Negative (Non-Reactive) * [...] Negative ADDITIONAL INFORMATION: Testing performed on the [employer] using the SARS-CoV-2 Antigen test. Results are for the identification of SARS-CoV-2 nucleocapsid antigen. The [facility] [employer] SARS-CoV-2 Antigen test can detect bothviable and non-viable SARS-CoV-[address] [facility] [employer] SARS-CoV-2 Antigen test performance depends on antigen [...] test results. In the [place], the [facility] [employer] SARS-CoV-2 Antigen test is only for use under the Food and Drug Administration?s EmergencyUse Authorization. HCP Fact Sheet: https://www.fda.gov/media/386908/download Patient Fact Sheet: https://www.fda.gov/media/647922/downloadPerformed By: #### CD:[id number] #### [facility] [address] [place], [place] [address]PJJM-RjT-3 (COVID-19) RNA DIEGO+probe Ql (Unsp spec)NoNormal [facility] WestComment on above:Performed By: #### CD:[id number] #### [facility] [address] [place], [place] [address]KXJJ-IaF-1 (COVID-19) RNA DIEGO+probe Ql (Unsp spec)UnknownNormal [facility] WestComment on above:Performed By: #### CD:[id number] #### [address] [address]Pmrogqqjtmd as defined by CDC?NoNormalRegency Hospital Cleveland WestComment on above:Performed By: #### CD:[id number] #### [address] [address]ANZ (H/H, RBC, INDICES, WBC, PLT)on 68-00-1745Ywvrgaabmhi distribution width (RBC) [Ratio]12.7 %Lkoqps96.0-15.0Quest DiagnosticsComment on above:Performed By: #### 90464, 39810, 496, 1759, 97221, 927, 549, 79798 #### [facility] [place] [address] Joss House Keeper: Jak Lanza MDHematocrit (Bld) [Volume fraction]43.8 %Normal 38.5-50.0Quest DiagnosticsComment on above:Performed By: #### 22857, 63933, 496, 1759, 39018, 927, 549, 36701 #### [facility] [place] [address] J[employer] House Keeper: Jak Lanza MDHemoglobin (Bld) [Mass/Vol]14.4 g/dLNormal 13.2-17.1Quest DiagnosticsComment on above:Performed By: #### 94085, 61071, 496, 1759, 86272, 927, 549, 93529 #### [facility] [place] [address] Joss House Keeper: Jak Lanza MDMCH (RBC) [Entitic mass]30.1 hlZohgks18.0-33.0 [facility] DiagnosticsComment on above:Performed By: #### 50784, 64899, 496, 1759, 61901, 927, 549, 57409 #### [facility] [address], [address] [place] [address] Joss House Keeper: Jak Lanza MDMCHC (RBC) [Mass/Vol]32.9 g/zYKsitbr45.0-36.0 [facility]osticsComment on above:Performed By: #### 49148, 10255, 496, 1759, 07519, 927, 549, 67073 #### [facility] of [place] [address] [address] , [address] [place], [place] [address] Joss House Keeper: Jak Lanza MDMCV (RBC) [Entitic vol]91.6 uFOfrkrv30.0-100.0 [facility]osticsComment on above:Performed By: #### 01899, 69179, 496, 1759, 15308, 927, 549, 32977 #### [facility] of [address] , [address] [place] [address] Joss House Keeper: Jak Lanza MDPlatelet mean volume (Bld) [Entitic vol]9.4 fL Normal7.5-12.5Quest DiagnosticsComment on above:Performed By: #### 00463, 23704, 496, 1759, 96452, 927, 549, 80513 #### [facility] of [place] [address] [place] [address] Joss House Keeper: Jak Lanza MDPlatelets (Bld) [#/Vol]179 10*3/uLNormal 140-400Quest DiagnosticsComment on above:Performed By: #### 35390, 51620, 496, 1759, 76613, 927, 549, 18951 #### [facility] of [place] [address], [address] [place] [address] Joss House Keeper: Jak Lanza MDRBC (Bld) [#/Vol]4.78 10*6/uLNormal4.20-5.80 [facility] DiagnosticsComment on above:Performed By: #### 35694, 33708, 496, 1759, 65953, 927, 549, 52342 #### [facility] of [place] [address], [address] [place] [address] Joss House Keeper: Jak Lanza MDWBC (d) [#/Vol]7.6 10*3/uLNormal3.8-10.8 [facility]osticsComment on above:Performed By: #### 30957, 62930, 496, 1759, 52874, 927, 549, 27461 #### [facility] of [place] [address] Joss House Keeper: Jak Lanza [facility] OKLAH[facility] CITYREHENSIVE METABOLIC PANELon 01-15-2021 Albumin [Mass/Vol]4.2 g/dLNormal3.6-5.1Quest DiagnosticsComment on above: Performed By: #### 54668, 36660, 496, 1759, 67138, 927, 549, 01254 #### [facility] [place] [address] Joss House Keeper: Jak Lanza MDAlbumin/Globulin [Mass ratio]1.2 {ratio}Normal 1.0-2.5Quest DiagnosticsComment on above:Performed By: #### 08652, 87524, 496, 1759, 10032, 927, 549, 12218 #### [facility] [place] [address] Joss House Keeper: Jak Lanza MDALP [Catalytic activity/Vol]66 U/FDfnllb30-063 [facility] DiagnosticsComment on above:Performed By: #### 09205, 71989, 496, 1759, 84030, 927, 549, 15084 #### [facility] of [place] [address] Joss House Keeper: Jak Lanza MDALT [Catalytic activity/Vol]13 U/LNormal9-46 [facility]osticsComment on above:Performed By: #### 39146, 56551, 496, 1759, 79025, 927, 549, 67237 #### [facility] of [place] [address] Joss House Keeper: Jak Lanza MDAST [Catalytic activity/Vol]17 U/JQwpdkk81-28 [facility] DiagnosticsComment on above:Performed By: #### 46737, 02811, 496, 1759, 09432, 927, 549, 55086 #### [facility] of [place] [address] Joss House Keeper: Jak Lanza MDBilirubin [Mass/Vol]0.5 mg/dLNormal0.2-1.2 [facility] DiagnosticsComment on above:Performed By: #### 40479, 36871, 496, 1759, 51388, 927, 549, 96330 #### [facility] of [place] [address] Joss House Keeper: Jak Lanza MDBUN/CREATININE RATIONOT APPLICABLENormal6-22 [facility] DiagnosticsComment on above:Performed By: #### 87895, 19863, 496, 1759, 71916, 927, 549, 27405 #### [facility] of [place] [address] Joss House Keeper: Jak Lanza MDCalcium [Mass/Vol]8.9 mg/dLNormal8.6-10.3Quest DiagnosticsComment on above:Performed By: #### 37982, 59513, 496, 1759, 47359, 927, 549, 96812 #### [facility] of [address], [address] [place] [address] Joss House Keeper: Jak Lanza MDChloride [Moles/Vol]104 mmol/NSpgrxj30-235 [facility] DiagnosticsComment on above:Performed By: #### 14844, 65905, 496, 1759, 69055, 927, 549, 94362 #### [facility] of [place] [address] Joss House Keeper: Jak Lanza MDCO2 [Moles/Vol]24 mmol/FZkknyu10-13Abdaj DiagnosticsComment on above:Performed By: #### 90337, 01759, 496, 1759, 11238, 927, 549, 81526 #### [facility] [place] [address] Joss House Keeper: Jak GUTIERREZreatinine [Mass/Vol]1.06 mg/dLNormal0.70-1.25 [facility] DiagnosticsComment on above:Result Comment: For patients >49 years of age, the reference limit for Creatinine is approximately 13% higher for people identified as -Chinese.Performed By: #### 09815, 17651, 496, 1759, 82284, 927, 549, 81438 #### [facility] [place] [address] Joss House Keeper: Jak Lanza MDeGFR NON-AFR. TTCCXLTU51 mL/min/1.08r6Bsnleo> OR = 60Quest DiagnosticsComment on above:Performed By: #### 11495, 40827, 496, 1759, 26814, 927, 549, 51697 #### [facility] [place] [address] Joss House Keeper: Jak Lanza MDGFR/1.73 sq M.predicted among blacks MDRD (S/P/Bld) [Vol rate/Area]85 mL/min/{1.73_m2}Normal> OR = 60[facility] Comment on above:Performed By: #### 67280, 54297, 496, 1759, 14811, 927, 549, 59755 #### [facility] [address], [address] [place] [address] Joss House Keeper: Jak Lanza MDGlobulin (S) [Mass/Vol]3.4 g/dLNormal1.9-3.7 [facility] DiagnosticsComment on above:Performed By: #### 32410, 19783, 496, 1759, 48588, 927, 549, 22623 #### [facility] [place] [address] Joss House Keeper: Jak Lanza MDGlucose [Mass/Vol]98 mg/sTGmjkaj11-039Vdouh DiagnosticsComment on above:Result Comment: Non-fasting reference intervalPerformed By: #### 63424, 90571, 496, 1759, 38679, 927, 549, 87302 #### [facility] [address], [address] [place] [address] Joss House Keeper: Jak Lanza MDPotassium [Moles/Vol]4.4 mmol/LNormal3.5-5.3 [facility] DiagnosticsComment on above:Performed By: #### 76028, 13053, 496, 1759, 21300, 927, 549, 90697 #### [facility] [place] [address] Joss House Keeper: Jak Lanza MDSodium [Moles/Vol]136 mmol/GIlnbox636-722Qwqfg DiagnosticsComment on above:Performed By: #### 51813, 40359, 496, 1759, 73887, 927, 549, 48908 #### [facility] [address], [address] [place] [address] Joss House Keeper: Jak Lanza MDUrea nitrogen [Mass/Vol]11 mg/dLNormal7-25 [facility] DiagnosticsComment on above:Performed By: #### 84242, 23232, 496, 1759, 53086, 927, 549, 32521 #### [facility] [place] [address] Joss House Keeper: Jak Lanza MDHEMOGLOBIN A1con 44-94-5217LOJZTOSZDQ A1c5.6 % of total HgbNormal<5.7Quest DiagnosticsComment on [...] diagnosis of diabetes in children. According to [place] Diabetes Association (ADA) guidelines, hemoglobin A1c <7.0% represents optimal control in non- diabetic patients. Different metrics may apply to specific patient populations. Standards of Medical Care in Diabetes(ADA).Performed By: #### 6399, 96623, 7600, 809 #### [facility] [address], [address] [place] [address] Joss House Keeper: Jak Lanza MDIMMUNOFIXATION, SERUMon 96-94-4571MVM INTERPRETATIONNormalQuest DiagnosticsComment on above:Result Comment: A faint band in IgG Stokes cannot be ruled out from the serum immunofixation electrophoresis pattern. Consider repeat of serum and/or urine immunofixation electrophoresis if clinically indicated.Performed By: #### 59223, 32600, 496, 1759, 95327, 927, 549, 53635 #### [facility] [address], [address] [place] [address] Joss House Keeper: Jak Lanza MDMETHYLMALONIC ACIDon 01-62-6798ETOJWITEWQIRN SNQC473 nmol/CHgps55-331Xkkjd DiagnosticsComment on above:Result Comment: See Note 1 Note 1 This test was developed and its analytical performance characteristics have been determined by [employer]. It has not been cleared or approved by the FDA. This assay has been validated pursuant to the CLIA regulations and is used for clinical purposes.Performed By: #### 6399, 52796, 7600, 809 #### [facility] [address], [address] [place] [address] Joss House Keeper: Jak Lanza MDPROTEIN, TOTAL AND PROTEIN ELECTROPHORESIS W/ REFL IFEon 24-73-5741KTIVMZOX PROTEIN BAND 1NormalNONE DETECTEDQuest Diagnostics Comment on above:Order Comment: FASTING:NO FASTING: NOResult Comment: See belowPerformed By: #### 13498, 55937, 496, 1759, 55478, 927, 549, 12407 #### [facility] [address], [address] [place] [address] Joss House Keeper: Jak Lanza MDAlbumin [Mass/Vol]4.1 g/dLNormal3.8-4.8Quest DiagnosticsComment on above:Order Comment: FASTING:NO FASTING: NOPerformed By: #### 15397, 40552, 496, 1759, 59246, 927, 549, 69694 #### [facility] [place] [address] Joss House Keeper: Jak WALTERSHA 1 GLOBULIN0.3 g/dLNormal0.2-0.3Quest DiagnosticsComment on above:Order Comment: FASTING:NO FASTING: NOPerformed By: #### 75675, 42693, 496, 1759, 72147, 927, 549, 39868 #### [facility] [place] [address] Joss House Keeper: Jak Lanza MDALPHA 2 GLOBULIN0.8 g/dLNormal0.5-0.9Quest DiagnosticsComment on above:Order Comment: FASTING:NO FASTING: NOPerformed By: #### 26499, 78462, 496, 1759, , 927, 549, 48953 #### [facility] [place] [address] Joss House Keeper: Jak Lanza MDBETA 1 GLOBULIN0.4 g/dLNormal0.4-0.6Quest DiagnosticsComment on above:Order Comment: FASTING:NO FASTING: NOPerformed By: #### 73275, 51665, 496, 1759, 68071, 927, 549, 05366 #### [facility] [place] [address] Joss House Keeper: Jak Lanza MDBETA 2 GLOBULIN0.5 g/dLNormal0.2-0.5Quest DiagnosticsComment on above:Order Comment: FASTING:NO FASTING: NOPerformed By: #### 35230, 11281, 496, 1759, 20341, 927, 549, 50601 #### [facility] [place] [address] [employer] House Keeper: Jak Lanza MDGAMMA GLOBULIN1.5 g/dLNormal0.8-1.7Quest DiagnosticsComment on above:Order Comment: FASTING:NO FASTING: NOPerformed By: #### 42557, 32627, 496, 1759, 93575, 927, 549, 98821 #### [facility] [address], [address] [place] [address] [employer] House Keeper: Jak Lanza MDINTERPRETATIONNormalQuest DiagnosticsComment on above:Order Comment: FASTING:NO FASTING: NOResult Comment: Evaluation reveals a faint restricted band (M-spike) migrating in the beta-2 globulin region. If not already requested, Immunofixation should be considered.Performed By: #### 07006, 09176, 496, 1759, 30228, 927, 549, 54288 #### [facility] [place] [address] [employer] [address] Keeper: Jak Lanza MDProtein [Mass/Vol]7.6 g/dLNormal6.1-8.1Quest DiagnosticsComment on above:Order Comment: FASTING:NO FASTING: NOPerformed By: #### 75486, 86932, 496, 1759, 25962, 927, 549, 27324 #### [facility] [address], [address] [place] [address] [employer] House Keeper: Jak Lanza MDTSH W/REFLEX TO FT4on 60-86-0125CFP W/REFLEX TO FT42.39 mIU/LNormal0.40-4.50Quest DiagnosticsComment on above:Performed By: #### 12440, 23041, 496, 1759, 99999, 927, 549, 00953 #### [facility] [place] [address] [employer] Keeper: Jak Lanza MDVITAMIN B12on 77-82-6810Gjigmewci (Vitamin B12) [Mass/Vol]223 pg/lATxzgts887-3454Bvepq DiagnosticsComment on above:Result Comment: Please Note: Although the reference range for vitamin B12 is 200-1100 pg/mL, it has been reported that between 5 and 10% of patients with values between 200 and 400 pg/mL may experience neuropsychiatric and hematologic abnormalities due to occult B12 deficiency; less than 1% of patients with values above 400 pg/mL will have symptoms.Performed By: #### 63885, 33576, 496, 1759, 99544, 927, 549, 97341 #### [facility] [address] [facility], [address] [place] [address] [employer] House Keeper: Jak Lanza MD.eGFRon 36-89-7031dIKQ AA>60Normal>=60 [facility] WestComment on above:Result Comment: See comment. Performed By: #### .Automated Diff #### [address] [address]qXLO Non-AA>60Normal>=60[facility] WestComment on above:Result Comment: Stages of Chronic Kidney [...] = yearsPerformed By: #### .Automated Diff #### [address] [address]Scpyc Metabolic Profileon 84-94-7468Brtpx gap [Moles/Vol]12 mmol/LNormal7-17[facility] WestComment on above:Performed By: #### .Automated Diff #### [address] [address]Ycmdupq [Mass/Vol]8.4 mg/dLLow8.5-10.3BCoshocton Regional Medical CenterComment on above:Performed By: #### .Automated Diff #### [address] [address]Vaguzfsh [Moles/Vol]107 mmol/BLedfou63-914VraapiopeRegency Hospital Cleveland WestComment on above:Performed By: #### .Automated Diff #### [address] [address]LF8 [Moles/Vol]21 mmol/VJlb95-13RwhsfafzzOhiohealth Berger Hospital System Comment on above:Performed By: #### .Automated Diff #### [address] [address]Nzoivtliql [Mass/Vol]0.94 mg/dLNormal0.61-1.24[facility] WestComment on above:Performed By: #### .Automated Diff #### [address] [address]Kdrlcxz [Mass/Vol]158 mg/fZPzpo01-65AzrznyainRegency Hospital Cleveland WestComment on above:Performed By: #### .Automated Diff #### [address] [address]Mwommvvwd [Moles/Vol]4.4 mmol/LNormal3.4-4.8BCoshocton Regional Medical CenterComment on above:Performed By: #### .Automated Diff #### [address] [address]Ykinkl [Moles/Vol]136 mmol/KCkjgdt625-415IqekysrhzRegency Hospital Cleveland WestComment on above:Performed By: #### .Automated Diff #### [address] [address]Cfoe nitrogen [Mass/Vol]12 mg/dLNormal8-26[facility] WestComment on above:Performed By: #### .Automated Diff #### [address] [address]Tomf nitrogen/Creatinine [Mass ratio]12.8 mg/thIssdhj80.0-20.0 [facility] WestComment on above:Performed By: #### .Automated Diff #### [address] [address]IGZ w/ Diffon 62-58-1024Vbtfhklwmyf distribution width (RBC) [Ratio]13.1 %Lxgaju34.6-14.8BCoshocton Regional Medical CenterComment on above: Performed By: #### CBC #### [address] [address]Rybwurjnie (Bld) [Volume fraction]37.9 %Low41.0-53.0[facility] WestComment on above:Performed By: #### CBC #### [address] [address]Htioandsms (Bld) [Mass/Vol]13.2 g/dLLow13.5-17.5BCoshocton Regional Medical CenterComment on above:Performed By: #### CBC #### [address] [address]YIV (RBC) [Entitic mass]31.8 moTzgrhp80.0-35.0[facility] WestComment on above:Performed By: #### CBC #### [address] [address]MEKS39.8 %Qboiab35.0-37.0[facility] WestComment on above:Performed By: #### CBC #### [address] [address]LQD (RBC) [Entitic vol]91.2 cDQtikit50.0-100.0[facility] Cleveland WestComment on above:Performed By: #### CBC #### [address] [address]Gtlxlezy309 x10*3/eoDTppbwp733-376ZgadyqfgdRegency Hospital Cleveland WestComment on above:Performed By: #### CBC #### [address], [place] [address]Bwuanwss mean volume (Bld) [Entitic vol]7.7 fLNormal6.7-10.6 [facility] Cleveland WestComment on above:Performed By: #### CBC #### [address] [address]RSR2.15 x10*6/mcLLow4.30-5.80[facility] Comment on above:Performed By: #### CBC #### [address] [address]WCW00.8 x10*3/mcLHigh4.5-11.0[facility] Comment on above:Performed By: #### CBC #### [address] [address]Izse Autoon 51-11-5176Kltv Absolute0.0 x10*3/mcLNormal0.0-0.2 [facility] WestComment on above:Performed By: #### .Automated Diff #### [address] [address]Qlddpzzfw/100 WBC (Bld)0.0 %Normal0.0-1.2BCoshocton Regional Medical CenterComment on above:Performed By: #### .Automated Diff #### [address] [address]Uxl Absolute0.0 x10*3/mcLNormal0.0-0.4BCoshocton Regional Medical CenterComment on above:Performed By: #### .Automated Diff #### [address] [address]Ffucpgmxdfa/100 WBC (Bld)0.0 %Normal0.0-6.1BCoshocton Regional Medical CenterComment on above:Performed By: #### .Automated Diff #### [address] [address]Dhwib Absolute1.2 x10*3/mcLNormal1.0-4.8BCoshocton Regional Medical CenterComment on above:Performed By: #### .Automated Diff #### [address] [address]Udcdnkpotga/100 WBC (Bld)9.1 %Low27.2-40.8BCoshocton Regional Medical CenterComment on above:Performed By: #### .Automated Diff #### [address] [address]Gjyn Absolute0.4 x10*3/mcLNormal0.3-1.1BCoshocton Regional Medical CenterComment on above:Performed By: #### .Automated Diff #### [address] [address]Toyczdntp/100 WBC (Bld)3.3 %Low4.7-13.9BCoshocton Regional Medical CenterComment on above:Performed By: #### .Automated Diff #### [address] [address]Qfbopg Igrbfrda10.2 x10*3/mcLHigh1.8-7.7BCoshocton Regional Medical CenterComment on above:Performed By: #### .Automated Diff #### [address] [address]Gpmhzw Auto87.6 %High47.2-70.8BCoshocton Regional Medical Center Comment on above:Performed By: #### .Automated Diff #### [address] [address]Fxukdhhzb Clinical Summaryon 97-39-7287Acncyncap Clinical Summary[address] [address] [address] [address] Clinical Summary Person Information Name: Elian Cavazos Age: 64 Years : 1955 Sex: Male PCP: Alek Shelton DO Marital Status: Phone: PCP: [phone] Race: White Ethnicity: Not or Language: Bhutanese Visit Id: Visit Reason: Speciality: Acuity: Enc Type: Observation Med Service: Surgery Arrival: 09/09/2020 07:10:30 Discharge: Dispo Type: Address: [address] [place] [id number] Diagnosis: Status post total left knee replacement [...] Discharge Patient Education Review and attach ORTHO [facility] Hip/Knee Inpatient Discharge Special Instructions [...] range between ( 27.2 and 40.8 ) [place] Auto: 3.3 % -- Normal range between ( 4.7 and 13.9 ) Eos Auto: 0.0 % -- Normal range between ( 0.0 and 6.1 ) Basophil Auto: 0.0 % -- Normal range between ( 0.0 and 1.2 ) Baso Absolute: 0.0 x10 MCV: 91.2 fL -- Normal (more content not included)...[facility] HospitalOr[facility] Noteon 26-05-1937Setfbmwhco Progress Note Orthopedic: Postoperative day #1 status [...] signed by Alex Hayes PA-C 09/10/20 07:42 [facility] Agon 95-05-8072Thssxbao in healthcare?[facility] CenterComment on above:Performed By: #### .Automated Diff #### [address] [address]Engph care resident?[facility] Comment on above:Performed By: #### .Automated Diff #### [address] [address]Zy ICU?[facility] Medical CenterComment on above:Performed By: #### .Automated Diff #### [facility] [address] [place], [place] [address]Gtsoimcxg status?Not NormalBlWVUMedicine Barnesville HospitalComment on above:Performed By: #### .Automated Diff #### [facility] [address] [place], [place] [address]GVIV-UxN-5 (COVID-19) RNA DIEGO+probe Ql (Unsp spec)Normal NegativeRegency Hospital Cleveland WestComment on above:Result Comment: * Negative (Non-Reactive) * [...] Negative ADDITIONAL INFORMATION: Testing performed on the [employer] 3600 using the SARS-CoV-2 Antigen test. Results [...] Drug Administration?s EmergencyUse Authorization. HCP Fact Sheet: https://www.fda.gov/media/496665/download Patient Fact Sheet: https://www.fda.gov/media/141680/downloadPerformed By: #### .Automated Diff #### [address] [address]VCIV-GqW-5 (COVID-19) RNA DIEGO+probe Ql (Unsp spec)UnknownNormal [facility] WestComment on above:Performed By: #### .Automated Diff #### [address] [address]Droxlwrnzht as defined by CDC?UnknownNormalRegency Hospital Cleveland WestComment on above:Performed By: #### .Automated Diff #### [address] [address].eGFRon 46-84-3451vPDI AA>60Normal>=60[facility] WestComment on above:Result Comment: See comment.Performed By: #### EGFR #### [place] [address]eGFR Non-AA>60Normal>=60[facility] WestComment on above:Result Comment: Stages of Chronic Kidney [...] age = yearsPerformed By: #### EGFR #### [address] [address]RAG w/ Diffon 18-40-8867Qcxcyflzktm distribution width (RBC) [Ratio]13.6 %Romlgo49.6-14.8BCoshocton Regional Medical CenterComment on above: Performed By: #### CBC #### [address] [address]Dzpfzjdtti (Bld) [Volume fraction]43.3 %Whrmbq16.0-53.0 [facility] WestComment on above:Performed By: #### CBC #### [address] [address]Biltxeyevj (Bld) [Mass/Vol]14.8 g/oHUxyxbk84.5-17.5BCoshocton Regional Medical CenterComment on above:Performed By: #### CBC #### [address] [address]IPO (RBC) [Entitic mass]31.9 nxQqwinb69.0-35.0[facility] WestComment on above:Performed By: #### CBC #### [address] [address]RFGR18.2 %Idijvu56.0-37.0[facility] WestComment on above:Performed By: #### CBC #### [address] [address]KAS (RBC) [Entitic vol]93.4 sQXfzvhw19.0-100.0[facility] WestComment on above:Performed By: #### CBC #### [address] [address]Ngwmimwq833 x10*3/ktLSuwdbq465-263IpnloxaiyRegency Hospital Cleveland WestComment on above:Performed By: #### CBC #### [address] [address]Yjxfwdlr mean volume (Bld) [Entitic vol]7.6 fLNormal6.7-10.6 [facility] WestComment on above:Performed By: #### CBC #### [address] [address]NGY0.63 x10*6/mcLNormal4.30-5.80[facility] Comment on above:Performed By: #### CBC #### [address] [address]XZH5.8 x10*3/mcLNormal4.5-11.0[facility] Comment on above:Performed By: #### CBC #### [address] [address]CPVxs 52-75-8899Bmnfwbj [Mass/Vol]4.1 g/dLNormal3.2-4.9 [facility] WestComment on above:Performed By: #### .Automated Diff #### [address] [address]Wgokwzr/Globulin [Mass ratio]1.1 {ratio}Normal1.1-2.2BCoshocton Regional Medical CenterComment on above:Performed By: #### .Automated Diff #### [address] [address]Zjq Phos53 IU/ZSunmnq57-46AtgijmnlzRegency Hospital Cleveland WestComment on above:Performed By: #### .Automated Diff #### [address] [address]KCJ [Catalytic activity/Vol]23 U/TMevmam18-17FtdatyiknRegency Hospital Cleveland WestComment on above:Performed By: #### .Automated Diff #### [address] [address]Ejyfa gap [Moles/Vol]13 mmol/LNormal7-17[facility] WestComment on above:Performed By: #### .Automated Diff #### [address] [address]MPZ [Catalytic activity/Vol]24 U/CVkyjaf48-41XmikazqhsRegency Hospital Cleveland WestComment on above:Performed By: #### .Automated Diff #### [address] [address]Xylz Total0.3 mg/dLNormal0.3-1.2BCoshocton Regional Medical Center Comment on above:Performed By: #### .Automated Diff #### [address] [address]Njhmdnx [Mass/Vol]9.2 mg/dLNormal8.5-10.3BCoshocton Regional Medical CenterComment on above:Performed By: #### .Automated Diff #### [address] [address]Ucczinfp [Moles/Vol]106 mmol/ZQimlox99-558OjrijbtmxRegency Hospital Cleveland WestComment on above:Performed By: #### .Automated Diff #### [address] [address]KK3 [Moles/Vol]25 mmol/HCwwaqe73-05QnkkbhyhdOhiohealth Berger Hospital SystemComment on above:Performed By: #### .Automated Diff #### [address] [address]Qolishedzt [Mass/Vol]1.13 mg/dLNormal0.61-1.24[facility] WestComment on above:Performed By: #### .Automated Diff #### [address] [address]Jfduezd [Mass/Vol]97 mg/oTPpfhyc67-64UblrueexwRegency Hospital Cleveland WestComment on above:Performed By: #### .Automated Diff #### [address] [address]Fvtrykbmh [Moles/Vol]4.3 mmol/LNormal3.4-4.8BCoshocton Regional Medical CenterComment on above:Performed By: #### .Automated Diff #### [address] [address]Ktuzpzh [Mass/Vol]7.7 g/dLNormal6.5-8.1BCoshocton Regional Medical CenterComment on above:Performed By: #### .Automated Diff #### [address] [address]Xfkerl [Moles/Vol]140 mmol/UHyluht688-409Kteruwsqz Valley Health SystemComment on above:Performed By: #### .Automated Diff #### [address] [address]Auzi nitrogen [Mass/Vol]22 mg/dLNormal8-26[facility] WestComment on above:Performed By: #### .Automated Diff #### [address] [address]Hkkr nitrogen/Creatinine [Mass ratio]19.5 mg/fpQsgdwm60.0-20.0 [facility] WestComment on above:Performed By: #### .Automated Diff #### [address] [address]Sxlv Autoon 62-09-2424Nxrn Absolute0.1 x10*3/mcLNormal0.0-0.2 [facility] WestComment on above:Performed By: #### .Automated Diff #### [address] [address]Wurbvygtv/100 WBC (Bld)0.7 %Normal0.0-1.2BCoshocton Regional Medical CenterComment on above:Performed By: #### .Automated Diff #### [address] [address]Tdt Absolute0.3 x10*3/mcLNormal0.0-0.4BCoshocton Regional Medical CenterComment on above:Performed By: #### .Automated Diff #### [address] [address]Wltfgyljltm/100 WBC (Bld)3.8 %Normal0.0-6.1BCoshocton Regional Medical CenterComment on above:Performed By: #### .Automated Diff #### [address] [address]Wwcqh Absolute3.3 x10*3/mcLNormal1.0-4.8BCoshocton Regional Medical CenterComment on above:Performed By: #### .Automated Diff #### [address] [address]Sspenwfsghz/100 WBC (Bld)42.6 %High27.2-40.8BCoshocton Regional Medical CenterComment on above:Performed By: #### .Automated Diff #### [address] [address]Itjg Absolute0.9 x10*3/mcLNormal0.3-1.1BCoshocton Regional Medical CenterComment on above:Performed By: #### .Automated Diff #### [address] [address]Tpsaqbhvq/100 WBC (Bld)10.9 %Normal4.7-13.9BCoshocton Regional Medical CenterComment on above:Performed By: #### .Automated Diff #### [address] [address]Alkwyo Absolute3.3 x10*3/mcLNormal1.8-7.7BCoshocton Regional Medical CenterComment on above:Performed By: #### .Automated Diff #### [address] [address]Qsdipe Auto42.0 %Low47.2-70.8BCoshocton Regional Medical Center Comment on above:Performed By: #### .Automated Diff #### [address] [address] Vital Signs Date TimeVital SignValuePerforming MiivjzqsuLdxsesge72-80-9093 08:02-0500Body ojxtdt691.9 cmSofía Wong MD Work Phone: [phone]11-06-2025 08:02-0500Body mass index (BMI) [Ratio]38.65 kg/t6PgcofnfgSofía Wong MD Work Phone: [phone]11-06-2025 08:02-0500Body yxuiwy556.28 kgSofía Wong MD Work Phone: [phone] [address]11-06-2025 08:02-0500Diastolic blood qryxdjhs43 mm[Hg]Sofía Wong MD Work Phone: [phone]11-06-2025 08:02-0500Heart rate 65 /minSofía Wong MD Work Phone: [phone] [place], [place] [address]11-06-2025 08:02-9001GrA1% (BldA) [Mass fraction]95 %Sofía Wong MD Work Phone: [facility] Ztcjkz06-80-2281 08:02-0500Systolic blood hbcyrclq758 mm[Hg]Sofía Wong MD Work Phone: [facility] [employer] Kvyftd81-51-1946 12:14-0400Body aihnpi085.9 cmHernando Guerrero MD Work Phone: [facility] [employer] Hjmkns76-52-5498 12:14-0400Body mass index (BMI) [Ratio]38.65 kg/d4FipdbcoHernando Guerrero MD Work Phone: [facility] Kwuyyx43-56-6119 12:14-0400Body zlebjh180.28 kgHernando Guerrero MD Work Phone: [facility] [employer] Ctpzzj51-56-5340 10:38-0400Body mass index (BMI) [Ratio]38.65 kg/m2Aniae Powers DO Work Phone: [phone])[facility] Gqqsfb65-01-6022 10:38-0400Body tpzovq168.28 kgAniae Powers DO Work Phone: [phone] [employer] Xgfwih83-16-2103 10:38-0400Diastolic blood jpurdcis12 mm[Hg]Katheryn Powers DO Work Phone: [phone] Waznbg47-41-2445 10:38-0400Heart rate 55 /minKate Powers DO Work Phone: [phone] [employer] Eyqurd25-69-8528 10:38-0400Systolic blood gaaspemz993 mm[Hg]Katheryn Powers DO Work Phone: [phone] Crtvcw75-55-4351 14:54-0400Body mass index (BMI) [Ratio]38.65 kg/m2Aniae Powers DO Work Phone: [phone] [employer] Pbyxjl65-35-1118 14:54-0400Body hswgus309.28 kgAniae Powers DO Work Phone: [phone])[facility] Aminwy42-12-3636 14:54-0400Diastolic blood ydrqdjji04 mm[Hg]Katheryn Powers DO Work Phone: [phone] [employer] Oeacoa45-78-8249 14:54-0400Heart rate 60 /minKatheryn Powers DO Work Phone: [phone] [employer] Zebrjp39-78-8459 14:54-0400Systolic blood uzyvizos885 mm[Hg]Katheryn Powers DO Work Phone: [phone] [employer] Kedigu46-54-2061 08:38-0400Body .9 Margarette Clemons MD Work Phone: [facility] [employer] Bvlswe75-01-8111 08:38-0400Body mass index (BMI) [Ratio]38.38 kg/u0BavjlhCurry Clemons MD Work Phone: [facility] [employer] Cagcep39-34-9728 08:38-0400Body .37 kgCurry Clemons MD Work Phone: [facility] [employer] Jbfvfp35-84-1359 08:38-0400Diastolic blood wlganjcf89 mm[Hg]Curry Clemons MD Work Phone: [facility] [employer] Kskxhz32-88-8683 08:38-0400Heart rate 58 /minCurry Clemons MD Work Phone: [facility] [employer] Dlnpsw67-31-3365 08:38-9549NuV7% (BldA) [Mass fraction]99 %Curry Clemons MD Work Phone: [facility] [employer] Wvxaml50-99-6205 08:38-0400Systolic blood qbauifni744 mm[Hg]Curry Clemons MD Work Phone: [facility] Xupapm59-73-3531 13:55-0400Body fhcusg952.9 cmAlek Cat DO Work Phone: [facility] [employer] Gorykf21-14-6458 13:55-0400Body mass index (BMI) [Ratio]38.41 kg/m2Alek Maries DO Work Phone: [facility] [employer] Njbwvk37-57-8448 13:55-0400Body yirqjlkougo32.7 [degF]Alek Shelton DO Work Phone: [facility] [employer] Pwlqbh12-98-5874 13:55-0400Body ufsiyd136.46 kgAlek Shelton DO Work Phone: [facility] [employer] Epwrqm36-46-4357 13:55-0400Diastolic blood mm[Hg]Alek Shelton DO Work Phone: [facility] [employer] Zxseyx93-80-6846 13:55-0400Heart rate 42 /minAlek Shelton DO Work Phone: [facility] [employer] Dickhk32-75-2551 13:55-2005MvX2% (BldA) [Mass fraction]96 %Alek Shelton DO Work Phone: [facility] [employer] Lutrin75-40-4236 13:55-0400Systolic blood mm[Hg]Alek Shelton DO Work Phone: [facility] [employer] Cfvlld61-21-3331 13:46-0400Diastolic blood jljnuadp48 mm[Hg]Alek Shelton DO Work Phone: [facility] [employer] Yqxoiw95-11-6504 13:46-0400Systolic blood phztucdm034 mm[Hg]Alek Shelton DO Work Phone: [facility] [employer] Nnvvuc67-09-7419 13:13-0400Body amywah079.4 cmJotamra Shelton DO Work Phone: [facility] [employer] Fflxxf49-96-0151 13:13-0400Body mass index (BMI) [Ratio]37.64 kg/m2Alek Shelton DO Work Phone: [facility] [employer] Irvwwa76-13-3997 13:13-0400Body fwtbgctmqtu34.9 [degF]Alek Shelton DO Work Phone: [facility] [employer] Zhfdqi78-32-4532 13:13-0400Body zridcu119.37 kgJohn Yuhas DO Work Phone: [facility] Siknby22-09-9709 13:13-0400Heart rate 70 /minAlek Shelton DO Work Phone: [facility] Vzsolt44-31-0570 13:13-0400 Respiratory rate18 /minAlek Shelton DO Work Phone: [facility] Mvmlrr65-65-9431 13:13-9763ZwV7% (BldA) [Mass fraction]95 %Alek Shelton DO Work Phone: [facility] Whypkf36-97-1132 09:45-0500Body uemzdl732.4 Margarette Clemons MD Work Phone: [facility] Agonav06-21-9220 09:45-0500Body mass index (BMI) [Ratio]36.29 kg/r9FkejrtCurry Clemons MD Work Phone: [phone] [place], [place] [address] Ywnqqw61-43-3251 09:45-0500Body .74 kgCurry Clemons MD Work Phone: [phone] [place], [place] [address] Cdnqef53-45-7537 09:45-0500Diastolic blood ovndmwvr67 mm[Hg]Curry Clemons MD Work Phone: [phone] [place], [place] [address] Rtkimy14-03-5470 09:45-0500Heart rate 44 /minCurry Clemons MD Work Phone: [phone] [place], [place] [address] Zjtwbg68-17-8264 09:45-0692TaU7% (BldA) [Mass fraction]98 %Curry Clemons MD Work Phone: [phone]-SPark![facility]Vi[facility] Szpctt47-42-9154 09:45-0500Systolic blood eklvybzg981 mm[Hg]Crury Clemons MD Work Phone: [phone] [place], [place] [address] Ssiout29-68-9674 08:45-0500Body emfczg372.4 Emerita Lucio MD Work Phone: [phone] [place], [place] [address] Invlyk97-99-3426 08:45-0500Body mass index (BMI) [Ratio]37.21 kg/v4DmgalYani Lucio MD Work Phone: [facility]12-30-2024 08:45-0500Body juhuug248.91 kgYani Lucio MD Work Phone: [facility] Ewyver27-90-5995 08:45-0500Diastolic blood gfomsicb97 mm[Hg]Yani Lucio MD Work Phone: [facility]12-30-2024 08:45-0500Heart rate 50 /minYani Lucio MD Work Phone: [facility]12-30-2024 08:45-6875IhM9% (BldA) [Mass fraction]98 %Yani Lucio MD Work Phone: [facility] CenterWalltik12-30-2024 08:45-0500Systolic blood kivfovja293 mm[Hg]Yani Lucio MD Work Phone: [facility] Srpjgt59-88-7773 08:27-0500Body gsecmw764.4 cmJotamra Yuhas DO Work Phone: [facility] CenterWalltik02-27-2024 08:27-0500Body mass index (BMI) [Ratio]35.71 kg/m2Lyubovtamra Yuhas DO Work Phone: [facility] [id number] 08:27-0500Body jmfeocrzygw41.6 [degF]Alek Yuhas DO Work Phone: [facility] [id number] 08:27-0500Body .79 kgAlek Yuhas DO Work Phone: [facility]-27-2024 08:27-0500Diastolic blood kvrgdtox52 mm[Hg]Alek Violahas DO Work Phone: [facility] [id number] 08:27-0500Heart rate 71 /minAlek Yuhas DO Work Phone: [facility]02-27-2024 08:27-3599TfJ2% (BldA) [Mass fraction]96 %Alek Shelton DO Work Phone: [facility]02-27-2024 08:27-0500Systolic blood uapwxxfb091 mm[Hg]Alek Shelton DO Work Phone: [facility] Encounters Encounter DateEncounter TypeCare ProviderFacilityStart: 02-25-2025 End: 09-74-7965HumatfQsjvlv [facility] Physicians CardiologyComment on above:Med RefillStart: 02-21-2025 End: 20-35-2712Hwbvnc outpatient visit 25 minutesFarheen Stone MD Work Phone: [facility] Physicians CardiologyComment on above:S/P CABG x 2 (Primary Dx); Essential hypertension; Mixed hyperlipidemia; PVC's (premature ventricular contractions); AV block, Mobitz 1; Bradycardia; Arteriosclerosis of arterial coronary artery bypass graft; Coronary arteriosclerosis; Preop cardiovascular examStart: 02-21-2025 End: 99-68-2435Fzfulyb encounter statusFarheen Stone MD Work Phone: Critical access hospitaltart: 02-21-2025 End: 27-82-5428sflmbosgncMKKKUKME SHUAIBProFoundation Surgical Hospital of El Pasotart: 37-15-2241Wjrlfgwxw for preprocedural cardiovascular examinationINLAND VALLEY REG[facility] ProMIndian Valley Hospitaltart: 02-20-2025 End: 70-52-1886Sjgbxgazv encounterLisa Dionisio RUIZOhioHealth [facility] Phys[facility] Cardiology Start: 02-06-2025 End: 48-97-1969Yngdwuius encounterModeepti Guerrero MD Work Phone: [facility] - ENTComment on above:Sleep Lab (PSG)Start: 02-04-2025 End: 66-21-4614Monpns outpatient new 30 minutesHernando Guerrero MD Work Phone: [facility] - ENTComment on above: Obstructive sleep apnea syndrome (Primary Dx); Intolerance of continuous positive airway pressure (CPAP) ventilation; Snoring; Chronic fatigue; BMI 38.0-38.9,adult; Obesity (BMI 30-39.9); Drainage from nose; Globus sensation; Laryngopharyngeal reflux (LPR); Nasal congestionStart: 02-04-2025 End: 75-14-4137zzfjtrvtwbUVPQHPG RAED ISSKettering Memorial Hospital HospitalStart: 01-31-2025 End: 71-25-1267Bnpyibaxz encounterNo Pcp No PcpProMedica [facility] - [facility] Start: 01-24-2025 End: 57-41-8763Gdbghyswk encounterJaclin Derrek CMAProMedica Physicians Jobst VascularStart: 01-15-2025 End: 86-98-8490Odowmuk encounter procedurePrince Velazquez MD-Lab [address] Work Phone: Start: 01-15-2025 End: 63-60-3243jxvygeaeqlAsij Yuhas DO Work Phone: [facility] Work Phone: Start: 01-14-2025 End: 63-71-9066Tlfimq outpatient visit 15 Amaris Alfaro Bridget DO Work Phone: [facility] Hospitalca Jobst Vascular [place]remontComment on above: Chronic venous insufficiency of lower extremity (Primary Dx); LymphedemaStart: 01-14-2025 End: 83-67-2349wlzbgpueykUJPZColumbus Regional Health Ambulatory PPGStart: 12-06-2024 End: 11-73-6646rtevxjocojAHQMMyrtue Medical Center HospitalStart: 11-28-2024 End: 92-62-8532Jmdtog-up encounterAlek Shelton DO Work Phone: [facility] Physicians - Jobst VascularComment on above: EMG With NCVStart: 48-90-4913odadtwaixlJNWMAscension Standish Hospital Start: 11-26-2024 End: 71-33-4846Uxapcw outpatient new 45 amosKatheryn Powers DO Work Phone: [facility] Vascular [place]ontComment on above:Mixed hyperlipidemia (Primary Dx); Chronic venous insufficiency of lower extremity; Essential hypertension; 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[facility]); Bilateral leg edema; Bilateral carotid artery stenosis; Claudication; LINDA (obstructive sleep apnea)Start: 11-26-2024 End: 93-86-6102lgdlteniuqXOMZ [facility] Ambulatory PPGStart: 11-15-2024 End: 12-26-1547Jhysar-up encounterAlek Shelton DO Work Phone: [facility] Phys[facility] Internal Medicine - Family MedicineComment on above:Nerve Conduction Study (NCV)Start: 11-13-2024 End: 33-88-1275nhfhsipzugOlxf Yuhas DO Work Phone: [facility] Work Phone: Start: 11-13-2024 End: 06-69-1177Dqglgsg encounter procedureShelby Waldron DO-[facility] Neurology [place] Work Phone: Start: 10-24-2024 End: 93-34-0686Ohmzbz outpatient visit 25 minutesCurry Clemons MD Work Phone: [facility] Physicians CardiologyComment on above:PVC (premature ventricular contraction) (Primary Dx)Start: 10-24-2024 End: 37-11-4836vexmyaaklzAXCATH GOYALOhioHealth Mansfield Hospitaltart: 10-09-2024 End: 72-64-7012Ujefmub encounter procedurePrince Velazquez MD-Lab [address] Work Phone: Start: 10-09-2024 End: 98-86-0147fdqwryteumBssnwqv MorrowFacility:[facility] Hospitaltart: 10-08-2024 End: 16-08-2645jrmftckmlbOUST L YUHAShelby Memorial Hospitaltart: 09-13-2024 End: 00-47-6017Qfoavm outpatient visit 25 minutesAlek Shelton DO Work Phone: [facility] Physicians Internal Medicine - Family MedicineComment on above:Peripheral polyneuropathy (Primary Dx); Chronic venous insufficiency of lower extremity; 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[facility])Start: 09-13-2024 End: 15-77-0739jcokvxckryQJAVTanner Medical Center [facility] Ambulatory PPGStart: 07-17-2024 End: 73-26-2224mlzwydewvnAUPMMercy Health St. 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[facility]); Vitamin B12 deficiency neuropathy; Stable angina; Encounter for screening for malignant neoplasm of prostateStart: 07-17-2024 End: 87-61-8435iambnqtgfsJXRDTanner Medical Center Villa [place] Ambulatory PPGStart: 07-03-2024 End: 44-55-0750Spmosdt encounter procedureAlek Shelton DO Work Phone: [facility]-Lab [address] Work Phone: Start: 07-03-2024 End: 36-16-0153bcpywwijlrXwwe Yuhas DO Work Phone: [facility] Work Phone: Start: 06-08-2024 End: 01-15-1874NlvhawHqosmh [facility]eneAllen [facility] Physicians CardiologyComment on above:Med RefillStart: 05-03-2024 End: 48-00-1515Wycfmeiif encounterJedonna Mora CMAMayo Memorial HospitalMedihi Physicians CardiologyStart: 05-03-2024 End: 44-34-0592Iiwpab outpatient new 45 Silvia Lucio MD Work Phone: [facility] Physicians CardiologyComment on above:PVC (premature ventricular contraction) (Primary Dx); Abnormal Holter examStart: 05-03-2024 End: 93-03-8348iwvknoffxqCSNBTG GOYALProMedica Toledo HospitalStart: 04-30-2024 End: 39-38-7364Tgwtcqtnt encounterViktor Cooper Physicians CardiologyComment on above:EP referralStart: 04-24-2024 End: 41-70-5927brryudeqeoDQHFE L DEBENEDETTIProMedica [place] HospitalStart: 04-24-2024 End: 62-51-9522ufphpcvonsJOLDT L DEBENEDETTIProMedica [place] HospitalStart: 04-24-2024 End: 01-83-1179wrfmsjilhlFTQDQ L DEBENEDETTIProMedica [place] HospitalStart: 04-16-2024 End: 29-57-8705Piopta outpatient visit 25 minutesYani Lcuio MD Work Phone: [facility] Physicians CardiologyComment on above: Bradycardia (Primary Dx); PVC (premature ventricular contraction); Essential hypertension; Mixed hyperlipidemia; Arteriosclerosis of arterial coronary artery bypass graft; Stable angina ([facility]); Coronary arteriosclerosisStart: 04-16-2024 End: 89-61-0563jvecixmyfuKKSSX L DEBENEDETTIProMediSaint Luke's Health System HospitalStart: 04-13-2024 End: 13-13-2059Hgaselcwv encounterJannet Nichole CMAProMedica Physicians Cardiology Start: 03-27-2024 End: 00-49-6060cwruwgtvmvIcgv YuhasFacility:[facility] Start: 03-24-2024 End: 04-09-6829UpzrotXrxfolar Bialecki 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 Work Phone: [facility] Physicians CardiologyComment on above:Med RefillStart: 01-11-2024 End: 14-46-0300AlsqcqDllrn Malas DO Work Phone: [facility] Physicians CardiologyComment on above:Med RefillStart: 12-30-2023 End: 56-60-9781Ribqszqvu encounterRupa Cooper Physicians Cardiology Start: 12-06-2023 End: 71-00-9945vvptmjpymxBD John Yuhas Work Phone: [facility] Work Phone: Start: 12-06-2023 End: 78-30-4020Uhrwnyr encounter procedureDO Alek Shelton Work Phone: [facility]-Lab [address] Work Phone: Start: 08-16-2023 End: 83-36-4523mrboxdchenIZ Alek Shelton Work Phone: [facility] Work Phone: Start: 08-16-2023 End: 66-68-7033Ognkibl encounter procedureDO Alek Violanoah Work Phone: [facility]-[address] Work Phone: Start: 06-14-2023 End: 46-72-2924Dixexo outpatient visit 25 minutesJotamra Shelton DO Work Phone: [facility] Internal Medicine - Family MedicineComment on above:Vitamin B12 deficiency neuropathy ([facility]); Atherosclerotic heart disease of [place] coronary artery with other forms of angina pectoris ([facility]); 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[facility]); Seasonal allergic rhinitis, unspecified triggerStart: 01-04-2023 End: 65-55-7451qprmevawanDN John Yuhas Work Phone: [facility] Work Phone: Start: 01-04-2023 End: 50-41-6413Xsdhfwy encounter procedureDO Alek Shelton Work Phone: [facility]-[address] Work Phone: Start: 09-14-2022 End: 67-31-4507iksqiscuisWG John Yuhas Work Phone: [facility] Work Phone: Start: 09-14-2022 End: 81-57-4257Fwimxks encounter procedureDO Alek Shelton Work Phone: [facility]-[address] Work Phone: Start: 08-30-2022 End: 93-64-0568wtmuwbwowkDJ ALEK MARIESFacility:F9Pdqic: 08-26-2022 End: 86-31-9930ivelhhcyjsOD MIREYA CHRISTIANSONFacility:O3Knjvc: 08-12-2022 End: 63-48-8037pctvhkjuliWX ALEK MARIESFacility:C1Rrvpt: 08-05-2022 End: 47-43-9677eogvimfrbqFT ALEK MARIESFacility:M6Bzbrr: 07-20-2022 End: 88-31-1814czlikjrcfiYS ALEK MARIESFacility:U0Mxqcf: 07-13-2022 End: 13-34-3321tmvrkalamdCH ALEK MARIESFacility:C4Yihma: 06-29-2022 End: 96-75-9358jrietvjxetXF MIREYA Thorpecility:F5Yzlsd: 05-15-2022 End: 08-53-7378vjuwaalbsbLM JUMA NoelFacility:H6Afrfd: 02-18-2022 End: 81-33-8125tjfwxmhuvnQC DOCTOR MISCFacility:Y4Aqwih: 02-02-2022 End: 75-56-1441fdwzmufyjtAA John Yuhas Work Phone: [facility] Work Phone: Start: 02-02-2022 End: 17-59-4603Ikborzr encounter procedureDO Alek Shelton Work Phone: [facility]-Lab [address] RdStart: 10-13-2021 End: 28-98-3354Hmmyoaa encounter procedureDO Alek Shelton Work Phone: [facility]-Lab [address] RdStart: 01-19-2021 End: 82-51-1866eyeumaiqmdNANicki Salasity:[facility] Start: 01-18-2021 End: 86-88-4923wesymbnibsQW JEFFERY A MCMATHFacility:[facility] Start: 01-09-2021 End: 40-38-1540nmjmpqygjiNLMD MADHURI Salasity:[facility] Start: 09-09-2020 End: 98-13-0366jjnazggkpfFV MADHURI Lowe [facility]Fac[facility] Start: 09-07-2020 End: 70-34-9493yqovjabokiZA MADHURI Lowe [facility]ATHFacility:[facility] Start: 09-02-2020 End: 78-14-4540ktydqyxukgLT MADHURI Lowe [facility]ATHFacility:[facility] Start: 08-18-2020 End: 75-79-8148avrmbdijtmQU MADHURI Lowe [facility] FARMATHFacility:[facility] Procedures DateProcedureProcedure DetailPerforming ClinicianStart: 89-49-5160Olcmrc-up visitFollow-upMOHAMGOPI SHUAIBStart: 81-87-2285Qssxvy-up visitFollow-upKATE Dominic GATESStart: 51-15-4448Vvmhx depression screening assessmentAlek Cat DO Work Phone: Start: 99-79-3369Eympp depression screening assessment Alek Shelton DO Work Phone: Start: 22-77-3689Ffm routine ecg w/least 12 lds w/i&r Curry Clemons MD Work Phone: Start: 83-56-5617[place]alaca-up visitFollow-Griselda CLEMONS Start: 01-73-4239Hrd routine ecg w/least 12 lds w/i&rLyong Lucio MD Work Phone: Start: 34-85-6995Xnsyy depression screening assessment Alek Shelton DO Work Phone: History of coronary artery bypass graftingS/P CABG x 2 Farheen Stone MD Work Phone: Plan of Treatment DateCare ActivityDetailAuthorStart: 55-34-0640CQhY,Tdap and Td Vaccines (3 - Td or Tdap)DTaP,Tdap and Td Vaccines (3 - Td or Tdap)[facility] Vidimax SystemStart: 44-99-6599Qfkhu BMI ScreeningAdult BMI ScreeningProMedica Health SystemStart: 25-82-6251Wttycn Use: CardiovascularStatin Use: CardiovascularProMedica Health SystemStart: 82-26-3024Fbjad BMI ScreeningAdult BMI ScreeningProMedica Health SystemStart: 65-20-6782Cjqdnbt ScreeningTobacco ScreeningProMedica Health System Start: 01-90-0655Ilwntwi ScreeningTobacco ScreeningProMedica Health SystemStart: 85-35-2025Rosya BMI ScreeningAdult BMI ScreeningProMedica Health SystemStart: 56-22-9286Nfbxbuc ScreeningTobacco ScreeningProMedica Health SystemStart: 39-02-5088Ozhpj BMI ScreeningAdult BMI ScreeningProMedica Health SystemStart: 12-30-8539Tnnodbp ScreeningTobacco ScreeningProMedica Health SystemStart: 09-67-4217Osxso BMI ScreeningAdult BMI ScreeningProMedica Health SystemStart: 80-65-9268Nhhpoxv ScreeningTobacco ScreeningProMedica Health SystemStart: 35-79-4013Wjuky BMI ScreeningAdult BMI ScreeningProMedica Health SystemStart: 26-99-6960Pqveeslgqh ScreeningDepression ScreeningProMedica Health SystemStart: 59-23-0574Ypey Risk ScreeningFall Risk ScreeningProMedica Health SystemStart: 36-31-9971Fqzdhau ScreeningTobacco ScreeningProMedica Health SystemStart: 71-35-2408Lecar BMI ScreeningAdult BMI ScreeningProMedica Health SystemStart: 20-81-5822Ketvewrljb ScreeningDepression ScreeningProMedica Health SystemStart: 05-73-6908Fwvrboc ScreeningTobacco ScreeningProMedica Health SystemStart: 75-68-6554Niasww Use: CardiovascularStatin Use: CardiovascularProMedica Health SystemStart: 17-07-3760Vorkz BMI ScreeningAdult BMI ScreeningProMedica Health SystemStart: 10-31-9461Yfwrzyo ScreeningTobacco ScreeningProMedica Health System Start: 33-49-5818Wukqz BMI ScreeningAdult BMI ScreeningProMedica Health System Start: 73-67-8128Ikuiqad ScreeningTobacco ScreeningProMedica Health SystemStart: 68-28-3185Cgzrm BMI ScreeningAdult BMI ScreeningKettering Health [facility] SystemStart: 15-81-0282Yjcixnl ScreeningTobacco ScreeningKettering Health Washington Township SystemStart: 04-01-2025 End: 76-25-8556Fskynrr encounter /15/2025 10:30 AM EST Office Visit [facility] [address] [place] [address] Katheryn Powers, [address] [place] [address] [facility] Start: 03-20-2025 End: 21-69-2934Tzzzmozav to same day surgery hvzkco7003/20/2025 12:30 PM EST - 03/20/2025 2:30 PM EST [facility] [address] [place] [address] Katheryn Powers, [address] [place] [address] LIGATION VEIN LOWER EXTREMITY OPEN GROIN VARICOSITIES (DIRECTLY OFF THE FEMORAL VEIN WITH NO STRAIGHT SEGMENT)[facility] HospitalSurgeryComment on above:LIGATION VEIN LOWER EXTREMITY OPEN GROIN VARICOSITIES (DIRECTLY OFF THE FEMORAL VEIN WITH NO STRAIGHT SEGMENT)Start: 03-20-2025 End: 14-85-8825EYULXFNJ VEIN LOWER EXTREMITYLIGATION VEIN LOWER EXTREMITY Chronic venous insufficiency of lower extremity 03/20/2025 12:30 PM ESTKettering Health [facility] Township SystemStart: 03-20-2025 End: 80-14-5030JDZDQXYDRXXBZWOPHAIUMC Chronic venous insufficiency of lower extremity 03/20/2025 12:30 PM ESTKettering Health Washington Township SystemStart: 03-20-2025 Subsequent hospital visit by iprpjnqxd11/03/2025 12:30 PM EST [facility] [address] [place] [address] [place] [address] Katheryn Powers DO [address] [place] [address] (Work) [facility] -SurgeryStart: 03-18-2025 End: 32-87-8015Hvynlrn encounter mkgmlxpib86/01/2025 11:30 AM EST Office Visit [facility] [address] ChandrikaLE[place] [address] Katheryn Powers, DO [address] [place] [address] [facility] Start: 03-04-2025 End: 33-37-9351Zbpaoxj encounter bjzpayiym94/17/2025 2:30 PM EST Office Visit [facility] [address] [place] [address] Farheen Stone MD [address] [place] [address] [facility] CardiologyStart: 02-21-2025 End: 91-95-1665Cewyynj encounter kdfknwbun06/06/2025 8:00 AM EST Office Visit [facility] [address] [place] [address] Farheen Stone MD [address] [place] [address] Sofía Wong MD [address] [place] [address] [facility] CardiologyStart: 02-04-2025 End: 12-62-6194Jugfoyc encounter mncnydzsp98/20/2025 12:45 PM EDT Office Visit [facility] - ENT [address] [place] [phone] Hernando Guerrero MD [address] [place] [address] [facility] - ENTStart: 01-30-2025 End: 88-33-9643Jspndykm for laser ablation of Extremity veinVein Treatment Vascular Ultrasound Routine Chronic venous insufficiency of lower extremity Expected: 01/30/2025, Expires: 01/30/2026[facility] Work Phone: Comment on above:Expected: 01/30/2025, Expires: 01/30/2026Start: 01-14-2025 End: 67-82-3978Krufmmh encounter letnpgevr18/29/2025 10:15 AM EDT Office Visit [facility] [place] [address] [place] [address] Katheryn Powers, [address] [place] [address] [facility] Vascular [place]Start: 27-18-5580PREHF-19 Vaccine ( season)COVID-19 Vaccine ( season)[facility] SystemStart: 44-57-3237Qhhvhnobc vaccinationInfluenza VaccineKettering Health Washington Township SystemStart: 11-26-2024 End: 24-87-9943Dltaafq encounter paxmxhrtx88/11/2025 2:30 PM EDT Office Visit [facility] [employer] Vascular [place] [address] [place] [address] Katheryn Powers DO [address] [place] [address] [facility] [employer] Vascular [place]Start: 11-26-2024 End: 55-34-5255GWP Abdominal veins and Pelvis veins W contrast IVCT venogram abdomen and pelvis Imaging Routine Bilateral leg edema Expected: 11/26/2024, Expires: 11/26/2025[facility] Work Phone: Comment on above:Expected: 11/26/2024, Expires: 11/26/2025Start: 10-24-2024 End: 85-54-2479Kcdehib encounter sohqookyw00/09/2025 8:45 AM EDT Office Visit [facility] [address] [place] [phone] Curry Clemons MD [address] [place] [address] [facility] CardiologyStart: 10-08-2024 End: 82-12-5011Lfwhjhx encounter bkaubhtir06/23/2025 9:30 AM EDT Appointment [facility] - Cardiovascular [address] [place] [address] Curry Clemons MD [address] [place] [address] [facility] - CardiovascularStart: 06-13-2574Phbdh BMI ScreeningAdult BMI ScreeningProKettering Health Washington Township SystemStart: 94-74-9785Gcvaxfmoza ScreeningDepression ScreeningProKettering Health [facility] SystemStart: 11-75-7732Cngh Risk ScreeningFall Risk ScreeningProKettering Health [facility] SystemStart: 01-09-5190Lmdqxkj ScreeningTobacco ScreeningProKettering Health [facility] SystemStart: 05-08-2024 End: 45-70-1003Ckzqxez encounter iahtdzsip07/21/2025 7:30 AM EST Office Visit [facility] [address] [place] [address] 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, 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 [address] [place] [address] [facility] CardiologyStart: 05-03-2024 End: 80-35-4590Amzeyu monitor studyHolter monitor 24-48 hour Cardiac Services Routine Abnormal Holter exam PVC (premature ventricular contraction) Expected: 05/03/2024, Expires: 05/03/2025[facility] Work Phone: Comment on above:Expected: 05/03/2024, Expires: 05/03/2025Start: 04-24-2024 End: 12-67-2130Zkwatkm encounter procedureRiverview Health Institute - Stress ImagingStart: 04-16-2024 End: 77-12-9499Rlqb complete W/O contrastEcho complete W/O contrast Echocardiography Routine PVC (premature ventricular contraction) Coronary arteriosclerosis Expected: 04/16/2024, Expires: 04/16/2025ProKettering Health Washington Township SystemComment on above:Expected: 04/16/2024, Expires: 04/16/2025Start: 04-16-2024 End: 17-89-7337Elszlm monitor studyHolter monitor 24-48 hour Cardiac Services Routine PVC (premature ventricular contraction) Expected: 04/16/2024, Expires: 04/16/2025ProAvita Health [facility] Hospitalca Work Phone: Comment on above:Expected: 04/16/2024, Expires: 04/16/2025Start: 04-16-2024 End: 39-38-9972SU Heart Perfusion W stress and W radionuclide IVNuc stress Lexiscan Cardiac Services Routine PVC (premature ventricular contraction) Coronary arteriosclerosis Expected: 04/16/2024, Expires: 04/16/2025[facility] Vidimax SystemComment on above:Expected: 04/16/2024, Expires: 04/16/2025Start: 04-16-2024 End: 46-16-8488Xetatbh encounter inebroops60/30/2024 9:00 AM EST Office Visit [facility] [address] [place] [address] Yani Lucio MD [address] [place] [address] [facility] CardiologyStart: 14-08-3495Xxfzx BMI ScreeningAdult BMI ScreeningKettering Health Washington Township SystemStart: 96-72-0754Vqsruhz ScreeningTobacco ScreeningProDunlap Memorial Hospitaltart: 02-17-2024 End: 04-95-0376Cgnaj metabolic 2000 panel - Serum or PlasmaBasic Metabolic Panel Lab Routine Medication refill Arteriosclerosis of arterial coronary artery byp ass graft Bradycardia Expected: 02/17/2024, Expires: 12/29/2024[facility] CenterComment on above:Expected: 02/17/2024, Expires: 12/29/2024Start: 02-17-2024 End: 95-71-8874TID panel - Blood by Automated countCBC without diff Lab Routine Medication refill Arteriosclerosis of arterial coronary artery bypass graft Bradycardia Expected: 02/17/2024, Expires: 12/29/2024[facility] Comment on above:Expected: 02/17/2024, Expires: 12/29/2024Start: 02-17-2024 End: 72-84-9159Ghuoi panelLipid panel Lab Routine Medication refill Mixed hyperlipidemia Expected: 02/17/2024, Expires: 12/29/2024[facility] Comment on above:Expected: 02/17/2024, Expires: 12/29/2024Start: 02-17-2024 End: 55-29-9251Nsdljecjn [Mass/volume] in Serum or PlasmaMagnesium Lab Routine Medication refill Bradycardia Hypomagnesemia Expected: 02/17/2024, Expires: [facility] HospitalT[facility] Work Phone: Comment on above:Expected: 02/17/2024, Expires: 12/29/2024Start: 66-93-0706KFXYS-19 Vaccine ()COVID-19 Vaccine ()[facility] OurStaytart: 01-13-4044EBIDS-19 Vaccine ( season)COVID-19 Vaccine ()[facility]im[facility] Start: 59-61-3940Msoomgtkt vaccinationInfluenza VaccineDiley Ridge Medical Center Start: 98-33-4146Uitrsbfrag ScreeningDepression ScreeningDiley Ridge Medical Center Start: 27-65-0688Xjjm Risk ScreeningFall Risk ScreeningDiley Ridge Medical Center Start: 01-17-2024Medicare Annual Wellness VisitMedicare Annual Wellness Visit [facility] Vid[facility]ax [facility]: 43-27-5195CYSPD-19 Vaccine ( season) COVID-19 Vaccine ( season)[facility] HospitalDxContinuum SystemStart: 11-29-2020 Abdominal aortic aneurysm screeningAbdominal Aortic Aneurysm (AAA) Screen [facility] HospitalAxial Healthcaretart: 29-14-7799TDR ( or age 60+ yrs) (1 - Risk 60-74 years 1-dose series)RSV ( or age 60+ yrs) (1 - Risk 60-74 years 1- dose series)[facility] HospitalDxContinuum SystemStart: 37-34-9527Ftpouciwzkjvex of varicella zoster vaccineZoster (Shingles) Vaccine (1 of 2)[facility] HospitalDxContinuum SystemStart: 76-25-6204Wywidtfek for malignant neoplasm of colonColonoscopyOhioHealth Grove City Methodist Hospital Vidimax [facility]tart: 70-09-6493Uvqrm BMI Follow Up PlanAdult BMI Follow Up PlanDiley Ridge Medical Center End: 11-97-5811UUD W Auto Differential panel - BloodCBC auto differential Lab Routine Peripheral polyneuropathy 1 Occurrences starting 09/13/2024 until 09/13/2025[employer] Work Phone: Comment on above:1 Occurrences starting 09/13/2024 until 09/13/2025BC W Auto Differential panel - BloodCBC auto differential Lab Routine Peripheral polyneuropathy 09/13/2024 3:06 PM [facility] End: 66-57-4380SihifqeacmgseIxsteqqwvlpqb Lab Routine Peripheral polyneuropathy 1 Occurrences starting 09/13/2024 until 09/13/2025[facility] SystemComment on above:1 Occurrences starting 09/13/2024 until 09/13/2025eruloplasmin Ceruloplasmin Lab Routine Peripheral polyneuropathy 09/13/2024 3:06 PM EDT [facility] HospitalDxContinuum SystemCTA Abdominal veins and Pelvis veins W contrast IVCT venogram abdomen and pelvis Imaging Routine Bilateral leg edema 12/06/2024 8:22 AM [facility] End: 74-27-2521Eiappnfmsyf sedimentation rateErythrocyte Sedimentation Rate (ESR) Lab Routine Peripheral polyneuropathy 1 Occurrences starting 09/13/2024 until 09/13/2025[facility] SystemComment on above:1 Occurrences starting 09/13/2024 until 09/13/2025Erythrocyte sedimentation rateErythrocyte Sedimentation Rate (ESR) Lab Routine Peripheral polyneuropathy 09/13/2024 3:[address] [facility] End: 68-41-2165Hsti TotalLyme Total Lab Routine Peripheral polyneuropathy 1 Occurrences starting 09/13/2024 until 09/13/2025[facility] CenterComment on above:1 Occurrences starting 09/13/2024 until 09/13/2025Lyme TotalLyme Total Lab Routine Peripheral polyneuropathy 09/13/2024 3:[address] [facility] End: 80-76-0870Quchrnnwwxxrv Acid, QN, PMethylmalonic Acid, QN, P Lab Routine Peripheral polyneuropathy 1 Occurrences starting 09/13/2024 until 09/13/2025 [facility] CenterComment on above:1 Occurrences starting 09/13/2024 until 09/13/2025Methylmalonic Acid, QN, PMethylmalonic Acid, QN, P Lab Routine Peripheral polyneuropathy 09/13/2024 3:[address] [facility] End: 51-21-0826Gkdfgyd electrophoresis, serumProtein electrophoresis, serum Lab Routine Peripheral polyneuropathy 1 Occurrences starting 09/13/2024 until 09/13/2025[facility] CenterComment on above:1 Occurrences starting 09/13/2024 until 09/13/2025Protein electrophoresis, serumProtein electrophoresis, serum Lab Routine Peripheral polyneuropathy 09/13/2024 3:[address] [facility] End: 14-18-9343KHM Diagnostic[facility] Routine Obstructive sleep apnea syndrome 1 Occurrences starting 02/04/2025 until 02/04/2026[facility] Work Phone: Comment on above:1 Occurrences starting 02/04/2025 until 02/04/2026 Immunizations Immunization DateImmunizationNotesCare GxkarnfpEoabmzoa22-12-5644Evguygqdl, UnspecifiedAniae Bridget GREGORY Work Phone: [phone] CenterQmruad04-99-1043qsinrrvap virus vaccine, unspecified formulationRupa OttHoward Memorial Hospital12-04-2023 Influenza, injectable, Madin Hampshire Canine Kidney, preservative free, quadrivalenthn Cat DO Work Phone: [facility] CenterKivocl49-45-4576Ppdpbssnq, Injectable, Mdck, Preservative Free, QuadKate Powers DO Work Phone: [facility]03-07-2023tetanus toxoid, reduced diphtheria toxoid, and acellular pertussis vaccine, adsorbedJohn Yuhas DO Work Phone: [facility] CenterLokerk30-20-0060Tjgedfyiq, Recombinant, Quadrivalent, Injectable, PreservKate Powers DO Work Phone: [phone] CenterOmtafv37-16-4544Kzghqgnb, quadrivalent, recombinant, injectable influenza vaccine, preservative freeJohn Yuhas DO Work Phone: [facility] CenterVdjqcv67-80-3290vioqwpaol virus vaccine, unspecified formulationJohn Yunoemis DO Work Phone: [facility] CenterNlkoxv76-94-9928Kaywpeqww, UnspecifiedKate Powers DO Work Phone: [phone] CenterSoaslu77-13-7450Lxozescmy, Injectable, QuadrivalentKate Powers DO Work Phone: [phone] CenterDhzyin91-54-5276dcfmsjbhk, injectable, quadrivalent, contains preservativeJohn Yunoemis DO Work Phone: [facility] CenterWeewtr47-58-6927Jcnmgbodf, Injectable, QuadrivalentKate Powers DO Work Phone: [phone] CenterEbnvqx06-81-0447rwoegngdb, injectable, quadrivalent, contains preservativeJohn Yunoemis DO Work Phone: [facility] CenterPffzrj87-42-8753Ilaobdlae, Im Trivalent PreservativeKate Powers DO Work Phone: [phone] CenterUlpngq95-22-4881yqjhpofjb, seasonal, injectableJohn Yunoemis DO Work Phone: [facility] CenterViagfz44-07-0469Hnlmrbxwlcou Conjugate 13-ValentAniae Powers DO Work Phone: [facility] CenterXrniqd55-88-5273bzgumnjcpgon conjugate vaccine, 13 valentJotamra Shelton DO Work Phone: [facility]01-13-2015tetanus toxoid, reduced diphtheria toxoid, and acellular pertussis vaccine, adsorbedJohn Cat DO Work Phone: [facility] CenterMqdbyg79-41-2572Onarvrfojdmy PolysaccharideKathui Powers DO Work Phone: [facility] CenterDkphyq99-15-6855faysygkxvdcp polysaccharide vaccine, 23 valentJotamra Shelton DO Work Phone: [facility]02-29-2008tetanus toxoid, adsorbedJotamra Shelton DO Work Phone: [facility]02-29-2008tetanus toxoid, unspecified formulationKathui Powers DO Work Phone: [facility] Payers DatePayer CategoryPayerPolicy [id number]-[id number] [id number] [employer] Member Subscriber Plan / Payer (Effective 2021-Present) Name: Elian Cavazos Relation to Subscriber: Self Name: Elian Cavazos Payer ID: Not on file Type: Not on file Address: [address] [id number] 2021Medicare [id number] 2.16.840.1.210214.3.57[id number] 2.16.840.1.013581.3.579.[id number] 2.16.840.1.924860.3.57[id number] 2.16.840.1.816761.3.57[id number] 2.16.840.1.290819.3.579.[id number] 2.16.840.1.450012.3.57[id number] 2.16.840.1.107050.3.579.2.64877-28-6707Nknvqks5732005 2.16.840.1.312817.3.579.2.58573-37-1372Pfslhyu8512212 2.16.840.1.650869.3.579.2.15885-02-8659Xeyvuag4957001 2.16.840.1.118594.3.579.2.44460-04-0757Fnspwky3698440 2.16.840.1.925325.3.57[id number] 2.16.840.1.517593.3.579.2.50279-99-6947Eirkvkj2197340 2.16.840.1.391817.3.579.2.77989-50-7737Tplnprw6753497 2.16.840.1.542049.3.579.2.23291-96-5148Bznxrpy1842754 2.16.840.1.344056.3.579.2.44873-53-3990Hesjwva2352320 2.16840.1.311138.3.579.2.57835-36-6592Tewoxns179922311 2.16840.1.256581.3.579.2.597620-07-0101Slhgpcy732344212 2.16840.1.021134.3.579.2.4[id number] 2.16840.1.895292.3.579.2.590269-29-8375Aoqrkoz258900153 2.16840.1.430731.3.579.2.799833-48-4053Vwcpdjy169774422 2.840.1.432998.3.579.2.951357-54-8128Xlealiu795286051 2.840.1.874056.3.579.2.504567-09-1093Qbazjlj470521608 2.840.1.176096.3.579.2.334[id number] 2.16840.1.923486.3.579.2.907092-94-0309Nzsprgp282361841 2.16840.1.809557.3.579.2.969132-46-7168Fpmayhj282823986 2.16840.1.680115.3.579.2.463678-98-6738Unxyoxf846777590 2.16840.1.162617.3.579.2.891831-56-1658Oqxxzxi056768613 2.16.840.1.588775.3.579.2.428177-15-2539Gssqyjb056605004 2.16.840.1.965325.3.579.2.356112-19-8209Rnwvmwx412294061 2.16840.1.532059.3.579.2.62[id number] 2.16840.1.389916.3.579.2.621465-57-0197Pkxwkdt592844889 2.840.1.748282.3.579.2.471969-38-5571Liascjb164940138 2.16840.1.539131.3.579.2.043943-68-4270Gfomhvd075392181 2.16840.1.198742.3.579.2.697260-90-1985Mpvsypy377363930 2.840.1.666919.3.579.2.977867-68-2851Qgulusj037468367 2.840.1.344049.3.579.2.284633-10-4225Ftsqrbu164040146 2.840.1.735870.3.579.2.940342-10-3301Vszmrzd080365058 2.16840.1.835349.3.579.2.155764-14-4051Rifzzkr634760389 2.16840.1.392192.3.579.2.7506Phzjtfz78598797 2.16.840.1.468657.3.579.2.531 Dcaebns23714197 2.16840.1.507890.3.579.2.704Nocasfc88026576 2.16.840.1.920553.3.579.2.177Qftffxq00482576 2.16.840.1.269807.3.579.2.531 Social History DateTypeDetailFacilityTobacco smoking status NHISUnknown if ever smokedSamaritan Hospital Work Phone: Start: 89-72-9347Gme Assigned At The Christ Hospitaltart: 03-18-2022 End: 69-38-1002Actgamz smoking status NHISEx-smokerOhioHealth [facility] History of tobacco useCurrent smokerKettering Health [facility] SystemHistory of tobacco useCigarette SmokerProKettering Health Washington [facility] SystemStart: 03-17-2022 End: 93-97-2668Bmmztavtep smoked current (pack per day) - Juxlkfct7EwiFnxqva Health SystemStart: 03-18-2022 End: 00-61-2457Mxoayae use and exposureSmokeless tobacco non-userKettering Health Washington [facility] SystemStart: 06-14-2023 End: 89-81-4857Zooqklvkn beverage intakeCurrent drinker of alcohol (finding) [facility] SystemStart: 03-17-2022 End: 63-69-3059Qtsnkc connection and isolation panelProNorth [facility] Medical Center Health SystemDo you belong to any clubs or organizations such as quaker groups, unions, fraternal or athletic groups, or school groups?YesProNorth Mississippi Medical Center Health SystemAre you now , , , , never or living with a partner?MarriedProNorth Mississippi Medical Center Health SystemHow often to you have a drink containing alcohol?4 or more times a weekProNorth [facility] Medical [facility] Health SystemHow many standard drinks containing alcohol do you have on a typical day?3 or 4ProNorth [facility] Medical Center Health SystemHow often do you have 6 or more drinks on 1 occasion?NeverProNorth [facility] Health System How hard is it for you to pay for the very basics like food, housing, medical care, and heatingNot hard at allK[facility]tering Health [facility] SystemStart: 03-17-2022 Aaehrgipa76EheBlehvy Health SystemStart: 87-12-9328Jayyfzx CommentbeerCritical access hospitaltart: 40-52-8142Rll assigned at birthNot on fileCritical access hospitaltart: 11-21-2014 End: 00-84-6839ZxlXitj (finding)[facility] CenterTobacco smoking status NHISUnknown if ever smokedSamaritan Hospital Work Phone: How many standard drinks containing alcohol do you have on a typical day?1 or 2PTwin City Hospital Functional Status DateAssessmentResultFacilHolzer Hospital Clinical Notes 09-09-2020 to 02-25-2025 Note Date & CqzrSdxjVcqvoqgq94-68-2187 Miscellaneous Notes* Telephone Encounter - Jessica Head RN - 02/25/2025 9:07 AM EST Received p/c from pt. Needs NTG stat refill Only because documented in this encounterDiley [facility] Medical Center11-10-2025 Telephone encounter Note* Telephone Encounter - Jessica Head RN - 02/25/2025 9:07 AM EST Received p/c from pt. Needs NTG stat refill Only because [facility]11-06-2025 History of Present illness Narrative* Sofía Wong MD - 02/21/2025 8:00 AM EST Elina Cavazos Date of visit: 02/21/2025 Date of : 1955 Age: 69 y.o. Patient Active Problem List Diagnosis Arteriosclerosis of arterial coronary artery bypass graft Hyperlipidemia Stable angina ([facility]) Essential hypertension Chronic venous insufficiency of lower extremity 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[facility]) Phlebitis of superficial veins of lower extremity Obstructive sleep apnea syndrome Obesity Impaired fasting glucose Atherosclerotic heart disease of [place] coronary artery with other forms of angina pectoris Vitamin B12 deficiency neuropathy Osteoarthritis of knee Artificial knee joint present PVC (premature ventricular contraction) No Known Allergies Current Outpatient Medications Medication Sig Dispense Refill ACETAMINOPHEN (TYLENOL ARTHRITIS ORAL) Take 1,300 mg by mouth in the morning. azelastine (ASTELIN) 137 mcg (0.1 %) nasal spray Administer 1 spray into each nostril in the morning and 1 spray before bedtime. Use in each nostril as directed. 30 mL 12 celecoxib (CeleBREX) 200 mg capsule Take 1 [...] for rhinitis or allergies. 16 g 2 fluticasone propionate (FLONASE) 50 mcg/actuation nasal spray Administer 2 sprays into each nostrilin the morning. 16 g 11 inFLIXimab (REMICADE) 10 mg/mL injection Infuse into a venous catheter. Every 16 weeks -700 mg latanoprost (XALATAN) 0.005 % ophthalmic solution Administer 1 drop to both eyes in the morning. magnesium oxide (MAGOX) 400 [...] mg total) by mouth in the morning. (Patient taking differently: Take 1 capsule (20 mg total) by mouth every other day.) triamcinolone (KENALOG) 0.1 % cream zinc gluconate 50 mg tablet Take 0.5 tablets (25 mg total) by mouth in the morning. atorvastatin (LIPITOR) 20 mg tablet Take 1 tablet (20 mg total) by mouth once daily at bedtime. 90 tablet 3 clopidogreL (PLAVIX) 75 mg tablet Take 1 tablet (75 mg total) by mouth in the morning. 90 tablet 3 ezetimibe (ZETIA) 10 mg tablet Take 1 tablet (10 mg total) by mouth in the morning. 90 tablet 3 famotidine (PEPCID) 40 mg tablet Take 1 tablet (40 mg total) by mouth in the morning and 1 tablet (40 mg total) before bedtime. (Patient not taking: Reported on 02/21/2025) 60 tablet 0 furosemide (LASIX) 20 mg tablet Take 1 tablet (20 mg total) by mouth as needed (For leg swelling). 30 tablet 11 losartan (COZAAR) 100 mg tablet Take 1 tablet (100 mg total) by mouth in the morning. 90 tablet 3 pregabalin (LYRICA) 50 mg capsule Take 1 capsule (50 mg total) by mouth once daily at bedtime. 30 capsule 0 No current facility-administered medications for this visit. Chief Complaint Patient presents with Follow-up EST PT 1Y FU,LS RDG, SCHED W/PT, PRE OP VASC DR POWERS 03-01 AND 03-20 History of Present Illness Patient is here for follow-up visit and requesting clearance for planned vein stripping procedure. Has chronic lymphedema following with vascular. Stated that leg edema has been stable. Denied any chest pain or shortness of breath or dyspnea with exertion. No palpitations or dizziness or orthopnea. No issues with activities of daily living. 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 Past Medical History: Diagnosis Date Arthritis Psoriatic CAD (coronary artery disease) Coronary arteriosclerosis Hyperlipidemia Hyperlipidemia Hypertension Phlebitis 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CMS-HCC) PVD (peripheral vascular disease) Sleep apnea No data recorded No data recorded No data recorded Past Surgical History: Procedure Laterality Date COLONOSCOPY 04/18/2007 COLONOSCOPY N/A 08/03/2017 Performed by Alek Shelton DO at [facility] CORONARY ARTERY BYPASS GRAFT 04/18/1997 X's 2 [...] at all Food Insecurity: No Food Insecurity (02/21/2025) Hunger Screening Food Insecurity - Worry: Never True Food Insecurity - Inability: Never True Transportation Needs: No Transportation Needs (03/17/2022) PRAPARE - Transportation Lack of Transportation (Medical): No Lack of Transportation (Non-Medical): No Physical Activity: Insufficiently Active (03/17/2022) Exercise Vital Sign Days of Exercise per Week: 5 days Minutes of Exercise per Session: 20 min Stress: Unknown (03/17/2022) [employer] - Occupational Stress Questionnaire Feeling of Stress : Patient declined Social Connections: Socially Integrated (03/17/2022) Social Connection and Isolation Panel Frequency of Communication with Friends and Family: More than three times a week Frequency of Social Gatherings with Friends and Family: More than three times a week Attends Caodaism Services: More than 4 times per year [...] file Review of Systems Review of Systems Respiratory: Negative for cough, hemoptysis and wheezing. Gastrointestinal: Negative for abdominal pain, change in bowel habit and hematochezia. Genitourinary: Negative for dysuria and hematuria. Neurological: Negative for focal weakness, headaches and paresthesias. CARDIOVASCULAR: Please review HPI. Physical Examination General [...] Gastrointestinal: Soft, non-tender. Bowel sounds normal. Musculoskeletal: + lymphedema bilateral lower extremities with pitting edema. Neurologic: Oriented to time, person and place, affect appropriate. No focal/major motor defects noted. Psychiatric: Appropriate mood, memory and judgement. VITAL SIGNS: BP 124/80 Pulse 65 Ht 182.9 cm (6') Wt 129.3 kg (285 lb) SpO2 95% BMI 38.65 kg/m Orders Placed or Reconciled This Encounter Medications latanoprost (XALATAN) 0.005 % ophthalmic solution Sig: Administer 1 drop to both eyes in the morning. furosemide (LASIX) 20 mg tablet Sig: Take 1 tablet (20 mg total) by mouth as needed (For leg swelling). Dispense: 30 tablet Refill: 11 losartan (COZAAR) 100 mg tablet Sig: Take 1 tablet (100 mg total) by mouth in the morning. Dispense: 90 tablet Refill: 3 clopidogreL (PLAVIX) 75 mg tablet Sig: Take 1 tablet (75 mg total) by mouth in the morning. Dispense: 90 tablet Refill: 3 atorvastatin (LIPITOR) 20 mg tablet Sig: Take 1 tablet (20 mg total) by mouth once daily at bedtime. Dispense: 90 tablet Refill: 3 ezetimibe (ZETIA) 10 mg tablet Sig: Take 1 tablet (10 mg total) by mouth in the morning. Dispense: 90 tablet Refill: 3 Medications Discontinued During This Encounter Medication Reason tiZANidine (ZANAFLEX) 4 mg tablet atorvastatin (LIPITOR) 20 mg tablet Reorder clopidogreL (PLAVIX) 75 mg tablet Reorder ezetimibe (ZETIA) 10 mg tablet Reorder losartan (COZAAR) 100 mg tablet Reorder IMPRESSIONS/PLAN 1. S/P CABG x 2 2. Essential hypertension - losartan (COZAAR) 100 mg tablet; Take 1 tablet (100 mg total) by mouth in the morning. Dispense: 90 tablet; Refill: 3 - clopidogreL (PLAVIX) 75 mg tablet; Take 1 tablet (75 mg total) by mouth in the morning. Dispense:90 tablet; Refill: 3 - atorvastatin (LIPITOR) 20 mg tablet; Take 1 tablet (20 mg total) by mouth once daily at bedtime. Dispense: 90 tablet; Refill: 3 - ezetimibe (ZETIA) 10 mg tablet; Take 1 tablet (10 mg total) by mouth in the morning. Dispense: 90tablet; Refill: 3 3. Mixed hyperlipidemia - losartan (COZAAR) 100 mg tablet; Take 1 tablet (100 mg total) by mouth in the morning. Dispense: 90 tablet; Refill: 3 - clopidogreL (PLAVIX) 75 mg tablet; Take 1 tablet (75 mg total) by mouth in the morning. Dispense:90 tablet; Refill: 3 - atorvastatin (LIPITOR) 20 mg tablet; Take 1 tablet (20 mg total) by mouth once daily at bedtime. Dispense: 90 tablet; Refill: 3 - ezetimibe (ZETIA) 10 mg tablet; Take 1 tablet (10 mg total) by mouth in the morning. Dispense: 90tablet; Refill: 3 4. PVC's (premature ventricular contractions) 5. AV block, Mobitz 1 6. Bradycardia - losartan (COZAAR) 100 mg tablet; Take 1 tablet (100 mg total) by mouth in the morning. Dispense: 90 tablet; Refill: 3 - clopidogreL (PLAVIX) 75 mg tablet; Take 1 tablet (75 mg total) by mouth in the morning. Dispense:90 tablet; Refill: 3 - atorvastatin (LIPITOR) 20 mg tablet; Take 1 tablet (20 mg total) by mouth once daily at bedtime. Dispense: 90 tablet; Refill: 3 - ezetimibe (ZETIA) 10 mg tablet; Take 1 tablet (10 mg total) by mouth in the morning. Dispense: 90tablet; Refill: 3 7. Arteriosclerosis of arterial coronary artery bypass graft - losartan (COZAAR) 100 mg tablet; Take 1 tablet (100 mg total) by mouth in the morning. Dispense: 90 tablet; Refill: 3 - clopidogreL (PLAVIX) 75 mg tablet; Take 1 tablet (75 mg total) by mouth in the morning. Dispense:90 tablet; Refill: 3 - atorvastatin (LIPITOR) 20 mg tablet; Take 1 tablet (20 mg total) by mouth once daily at bedtime. Dispense: 90 tablet; Refill: 3 - ezetimibe (ZETIA) 10 mg tablet; Take 1 tablet (10 mg total) by mouth in the morning. Dispense: 90tablet; Refill: 3 8. Coronary arteriosclerosis - losartan (COZAAR) 100 mg tablet; Take 1 tablet (100 mg total) by mouth in the morning. Dispense: 90 tablet; Refill: 3 - clopidogreL (PLAVIX) 75 mg tablet; Take 1 tablet (75 mg total) by mouth in the morning. Dispense:90 tablet; Refill: 3 - atorvastatin (LIPITOR) 20 mg tablet; Take 1 tablet (20 mg total) by mouth once daily at bedtime. Dispense: 90 tablet; Refill: 3 - ezetimibe (ZETIA) 10 mg tablet; Take 1 tablet (10 mg total) by mouth in the morning. Dispense: 90tablet; Refill: 3 9. Preop cardiovascular exam Previous cardiac related labs and test results reviewed and discussed with the patient. Preop cardiac clearance CAD s/p CABG [id number] LVEF 45-50% TTE 04/2024 Negative nuclear stress test 04/2024 Frequent PVCs, 12% burden HM 09/2024 Mobitz 1 second-degree AV block NSVT Hypertension Hyperlipidemia - 07/2024: LDL 50, Trig 170 Awaiting sleep study results Chronic lymphedema Patient is here for follow-up visit and requesting clearance for planned vein stripping procedure lower extremities. Patient at low to moderate risk for perioperative cardiovascular complications, risk non prohibitive. Can hold Plavix for 5-7 days prior to procedure and resume when cleared afterwards. Doing well stable from cardiac standpoint. Prescribe p.r.n. Lasix for leg edema. Recommended to take it for 5 days and then hold it and continue to monitor, can resume if edema worsens. To let us know if he has a take it for more than a week to continue monitoring his electrolytes and kidney function. Recommended wearing compression stockings. No change in his current cardiac regimen apart from adding p.r.n. Lasix. Refills sent to pharmacy per request. Follow-up in 8-12 months. Patient to call the office with any cardiac questions or concerns. * Please be advised that this note was generated using dictation software. Any discrepancies are unintentional. If you have any questions about the content of this note, please reach out to our office for clarification. TODAYS ORDERS No orders of the defined types were placed in this encounter. FOLLOW UP Return in about 8 months (around 10/21/2025). PCP: Alek Shelton Jr, DO Referring Physician: Alek Shelton DO [address] [id number] documented in this encounterDiley [facility] Medical Center11-05-2025 Miscellaneous Notes* Telephone Encounter - Jannet Nichole CMA - 02/20/2025 3:40 PM EST Called patient to remind them to bring their most current copy of their medication list with them to their appt. Patient verbalizes understanding. documented in this encounterDiley Ridge Medical Center11-05-2025 Telephone encounter Note* Telephone Encounter - Jannet Nichole CMA - 02/20/2025 3:40 PM EST Called patient to remind them to bring their most current copy of their medication list with them to their appt. Patient verbalizes understanding. [facility]10-22-2025 Miscellaneous Notes* Telephone Encounter - Svetlana Ragland - 02/06/2025 2:01 PM EDT 02/04 received PSG order 02/06 1st call, google assist said they can't take the call and hung up. Sent letter PSG order and 02/04 Cesar notes in epic documented in this encounterDiley Ridge Medical Center10-22-2025 Telephone encounter Note* Telephone Encounter - Svetlana Ragland - 02/06/2025 2:01 PM EDT 02/04 received PSG order 02/06 1st call, google assist said they can't take the call and hung up. Sent letter PSG order and 02/04 Cesar notes in epic [facility]10-22-2025 Miscellaneous Notes* Telephone Encounter - Dari Wadsworth - 02/06/2025 9:31 AM EDT Spouse called 02/06. They need sleep order, office notes, and demographics [facility] fax[facility] [phone], and [facility] phone # is [phone]. * Telephone Encounter - PINO Wright - 02/06/2025 9:31 AM EDT Faxed to Shannen at [facility] to [phone]. documented in this encounterDiley Ridge Medical Center10-22-2025 Telephone encounter Note* Telephone Encounter - Dari Wadsworth - 02/06/2025 9:31 AM EDT Spouse called 02/06. They need sleep order, office notes, and demographics [facility] fax: [phone], and [facility] phone # is [phone]. [facility]10-22-2025 Telephone encounter Note* Telephone Encounter - PINO Wright - 02/06/2025 9:31 AM EDT Faxed to Shannen at [facility] to [phone]. [facility]10-20-2025 History of Present illness Narrative* Hernando Guerrero MD - 02/04/2025 12:45 PM EDT [facility] - ENT [address] [facility] [id number] SUBJECTIVE: Patient ID (1955): Elian Cavazos is [...] Hyperlipidemia Hyperlipidemia Hypertension Phlebitis 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[facility]) PVD (peripheral vascular disease) Sleep apnea Past Surgical History: Procedure Laterality Date COLONOSCOPY 04/18/2007 COLONOSCOPY N/A 08/03/2017 Performed by Alek Shelton DO at [facility] CORONARY ARTERY BYPASS GRAFT 04/18/1997 X's [...] per Session: 20 min Stress: Unknown (03/17/2022) [employer] - Occupational Stress Questionnaire Feeling of Stress : Patient declined Social Connections: Socially Integrated (03/17/2022) Social Connection and Isolation Panel Frequency of Communication with Friends and Family: More than three times a week Frequency of Social Gatherings with Friends and Family: More than three times a week Attends Caodaism Services: More than 4 times per year [...] [facility] [place], [place] Elian presents today as a new [...] this chart were generated using voice recognition Ecelles Carson dictation software. Although every effort was made to ensure the accuracy of this automated charter pilot, some errors in charter pilot may have occurred. Marvin Hathaway CMA 02/04/25 1013 Dasia Nuñez CMA 02/04/25 1224 Marvin Hathaway CMA 02/04/25 1256 Marvin Hathaway CMA 02/04/25 1302 Marvin Hathaway CMA 02/04/25 1307 documented in this encounterMayo [facility] HospitalSecret [facility]10-20-2025 Instructions* Patient Instructions* Marvin Hathaway CMA - [...] or concerns: . Non-emergent messages received through FXTrip may take up to 2 business days for a response. documented in this encounterDiley Ridge Medical Center10-16-2025 Miscellaneous Notes* Telephone Encounter - Dari Wadsworth - 01/31/2025 [...] Salcedo CNA 02/01/25 0944 documented in this encounterDiley Ridge Medical Center10-16-2025 Telephone encounter Note* Telephone Encounter - Dari [...] before he sees Dr Guerrero. Please advise. [facility]10-16-2025 Telephone encounter Note* Telephone Encounter - Radha Salcedo CNA - 01/31/2025 4:14 PM EDT Should patient have a current sleep study before having an appointment? [facility]10-16-2025 Telephone encounter Note* Telephone Encounter - Hernando Guerrero MD - 01/31/2025 4:14 PM EDT We can set it up after his visit with me next week [facility] Work Phone: [phone] Telephone encounter Note* Telephone Encounter - Radha Salcedo CNA - 01/31/2025 4:14 PM EDT LVM for patient. Radha Salcedo CNA 02/01/25943 [facility]10-09-2025 Miscellaneous Notes* Telephone Encounter - Baljit Anglin CMA - 01/24/2025 9:11 AM EDT Patient is reaching out stating that they need surgery. You seen patient on 01/14. Just needing to know what procedure is needed so I can get working on it. Thank you documented in this encounterDiley Ridge Medical Center10-09-2025 Telephone encounter Note* Telephone Encounter - Baljit Anglin CMA - 01/24/2025 9:11 AM EDT Patient is reaching out stating that they need surgery. You seen patient on 01/14. Just needing to know what procedure is needed so I can get working on it. Thank you [facility] [employer] [id number] History of Present illness Narrative* Katheryn Alfaro Bridget, - 01/14/2025 10:15 AM EDT Images from the original note were not included. CC: Chief Complaint Patient presents with Follow-up Claudication Testing done Chronic Venous Insufficiency Carotid Artery Disease 69 y.o. male with h/o coronary artery disease (CABG), HTN, LINDA, HLD and venous insufficiency. 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 Brother - at 37 yo w/ GA CV abd/pelvis, DEBBIE/PVR, LE art duplex and [...] coronary artery bypass graft Hyperlipidemia Stable angina (CMS-HCC) Essential hypertension Chronic venous insufficiency of lower extremity 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[facility]) Phlebitis of superficial veins of lower extremity Obstructive sleep apnea syndrome Obesity Impaired fasting glucose Atherosclerotic heart disease of [place] tribe coronary artery with other forms of angina pectoris Vitamin B12 deficiency neuropathy Osteoarthritis of knee Artificial knee joint present PVC (premature ventricular contraction) BP 124/69 Pulse 55 Wt 129.3 kg (285 lb) BMI 38.65 kg/m Past Medical History: Diagnosis Date Arthritis Psoriatic CAD (coronary artery disease) Coronary arteriosclerosis Hyperlipidemia Hyperlipidemia Hypertension Phlebitis 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[facility]) PVD (peripheral vascular disease) Sleep apnea Past Surgical History: Procedure Laterality Date COLONOSCOPY 04/18/2007 COLONOSCOPY N/A 08/03/2017 Performed by Alek Shelton DO at [facility] CORONARY ARTERY BYPASS GRAFT 04/18/1997 X's [...] of: negative: CVA negative: DVT, PE negative: GA + CAD, HTN negative: PAD, PVD, claudication [...] deep reflux. + SFJ/GSV reflux, SSV reflux, licensed mortgage loan officer vein reflux. L - Absent/prev treated GSV/SSV. No DVT/SVT. No deep reflux. + SFJ reflux, licensed mortgage loan officer vein reflux. Discussed mgmt options including continued [...] Powers DO Vascular Surgery documented in this encounterDiley Ridge Medical Center08-11-2025 History of Present illness Narrative* Katheryn Powers DO - 11/26/2024 2:30 PM EDT Images from the original note were not included. CC: Chief Complaint Patient presents with Edema Varicose Veins Testing done Extremity Pain 69 y.o. male with h/o coronary artery disease (CABG), HTN, LINDA, HLD and venous insufficiency. 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 Pt w/ h/o previous bilat LE vein stripping in the . Approx 2 years ago additional laser ablation [...] treatment. Brother - at 37 yo w/ GA Chief Complaint Patient presents with Edema Varicose Veins Testing done Extremity Pain Patient Active Problem List Diagnosis Arteriosclerosis of arterial coronary artery bypass graft Hyperlipidemia Stable angina ([facility]) Essential hypertension Chronic venous insufficiency of lower extremity 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[facility]) Phlebitis of superficial veins of lower extremity Obstructive sleep apnea syndrome Obesity Impaired fasting glucose Atherosclerotic heart disease of [place] coronary artery with other forms of angina [...] 08/03/2017 Performed by Alek Shelton DO at [facility] CORONARY ARTERY BYPASS GRAFT 04/18/1997 X's [...] of: negative: CVA negative: DVT, PE negative: GA + CAD, HTN negative: PAD, PVD, claudication [...] Chronic venous insufficiency of lower extremity - [facility] [place], [place] Essential hypertension - Vas art duplex lwr bilateral; Future - Vas art doppler lwr limited single; Future 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[facility]) Bilateral leg edema - CT venogram abdomen and pelvis; Future - Creatinine includes GFR, serum; Future Bilateral carotid artery stenosis - Vas carotid duplex bilateral; Future Claudication - Vas art duplex lwr bilateral; Future - Vas art doppler lwr limited single; Future LINDA (obstructive sleep apnea) - [facility] [place], [place]; Future 1. Chronic venous insufficiency of lower extremity - [facility] [place], [place] 2. Mixed hyperlipidemia - Vas art duplex lwr bilateral; Future - Vas art doppler lwr limited single; Future 3. Essential hypertension - Vas art duplex lwr bilateral; Future - Vas art doppler lwr limited single; Future 4. 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[facility]) 5. Bilateral leg edema - CT venogram abdomen and pelvis; Future - Creatinine includes GFR, serum; Future 6. Bilateral carotid artery stenosis - Vas carotid duplex bilateral; Future 7. Claudication - Vas art duplex lwr bilateral; Future - Vas art doppler lwr limited single; Future 8. LINDA (obstructive sleep apnea) - [facility] [place], [place]; Future 69 y.o. male with h/o coronary artery disease (CABG), HTN, LINDA, HLD and venous insufficiency. Symptomatic venous insufficiency/Varicose veins: Venous insufficiency US 10/09/24: R - +SVT VV. Absent/prev treated GSV/SSV. No DVT. +common femoral and popliteal deep reflux. + SFJ/GSV reflux, SSV reflux, licensed mortgage loan officer vein reflux. L - Absent/prev treated GSV/SSV. No DVT/SVT. No deep reflux. + SFJ reflux, licensed mortgage loan officer vein reflux. Continue w/ compression stockings. Anticipate [...] Powers DO Vascular Surgery documented in this encounterDiley Ridge Medical Center07-29-2025 Chief complaint+Reason for visit Narrative* Chief Complaint Admit Date EMG - Referral for Alek Mariealexandria November 13, 2024 9:46am Reason for Visit Admit Date Numbness and tingling November 13, 2024 9: 46am Peripheral neuropathy, idiopathic October 172024 9:46am [facility] Work Phone: 1(144) 768-796607-29-2025 Evaluation note* Diagnosis Onset Date Resolution Status Admit Date Numbness and tingling acuteJuly 2024 9:46amPeripheral neuropathy, idiopathicacuteJuly 2024 9:46am [facility] Work Phone: 1(695) 168-167507-09-2025 History of Present illness Narrative* Curry Clemons MD - 10/24/2024 8:45 AM EDT Elian Cavazos Date of visit: 10/24/2024 Date of : 1955 Age: 68 y.o. Patient Active Problem List Diagnosis Arteriosclerosis of arterial coronary artery bypass graft Hyperlipidemia Stable angina ([facility]) Essential hypertension Chronic venous insufficiency of lower extremity 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[facility]) Phlebitis of superficial veins of lower extremity Obstructive sleep apnea syndrome Obesity Impaired fasting glucose Atherosclerotic heart disease of [place] tribe coronary artery with other forms of angina [...] with Follow-up ov 6 mo holter 10/08 @PM donaldo w pt History of Present Illness [...] Hyperlipidemia Hyperlipidemia Hypertension Phlebitis 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[facility]) PVD (peripheral vascular disease) Sleep apnea No data recorded No data recorded No data recorded Past Surgical History: Procedure Laterality Date COLONOSCOPY 04/18/2007 COLONOSCOPY N/A 08/03/2017 Performed by Alek Shelton DO at [facility] CORONARY ARTERY BYPASS GRAFT 04/18/1997 X's [...] per Session: 20 min Stress: Unknown (03/17/2022) [employer] - Occupational Stress Questionnaire Feeling of Stress : Patient declined Social Connections: Socially Integrated (03/17/2022) Social Connection and Isolation Panel [NHANES] Frequency of Communication with Friends and Family: More than three times a week Frequency of Social Gatherings with Friends and Family: More than three times a week Attends Caodaism Services: More than 4 times per year [...] not on beta-kemar therapy. Patient has prolonged [place] interval at baseline. Episodes of second-degree type [...] as 2-1 av block: Patient has prolonged [place] interval at baseline. Episodes of AV block noted nut culler. This is most likely secondary to high [...] Referring Physician: Alek Shelton DO [address] [place] [address] documented in this encounterDiley Ridge Medical Center06-24-2025 Chief complaint+Reason for visit Narrative* Chief Complaint Admit Date M06.09 Z79.899 October 09, 2024 9:06 am EMG - Referral for Alek Shelton November 13, 2024 9:46am [facility] Work Phone: 1(890) 230-787305-29-2025 History of Present illness Narrative* Alek Shelton DO - 09/13/2024 1:45 PM EDT PROGRESS NOTE Patient - Elian Cavazos Age [...] previous ultrasound and venous procedures performed at [facility] -may need repeat testing of his venous insufficiency for chronic reflux disease. May need vascular evaluation 3. 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[facility]) -overall unchanged, although this may be contributing [...] ago at Dr. Shashi Carl office at [facility]. Does not know the results other than that he was told he had neuropathy -he does have known chronic varicose veins in both lower extremities, with occasional flare-ups of superficial phlebitis, especially on the right leg. He did have some venous ultrasounds done severalyears ago, followed by invasive procedure on the right leg distal to the knee. This was done at [facility]. A review of systems was negative [...] Testing No results found. Alek Shelton DO., [facility] Office: [phone] documented in this [facility]04-01-2025 History of Present illness Narrative* Alek Shelton, DO - 07/17/2024 1:15 PM EDT IM PROGRESS NOTE Patient - Elian Cavazos Age - 68 [facility]. [facility] 1955 [id number] ASSESSMENT & PLAN 1. Mixed hyperlipidemia (Primary) [...] and unknown diastolic. The ASCVD Risk score (Westland DK, et al., 2019) failed to calculate [...] Musculoskeletal: Right lower leg: Edema (2+ to [id number]-[id number]) present. Left lower leg: Edema (2+ to [...] 04/24/2024 0.46 Final Left Ventricle Mass 04/24/2024 254.195059236349982 g Final Interventricular Septum Diastolic * 04/24/2024 8 cm Final ZLVIDS 04/24/2024 -3.46 Final ZLVIDD 04/24/2024 -7.21 Final Energy loss index 04/24/2024 22.60 Final Other Testing No results found. Alek Shelton DO., [facility] Office: [phone] documented in this encounterDiley Ridge Medical Center01-16-2025 Miscellaneous Notes* Telephone Encounter - Francesca Mora CMA - 05/03/2024 10:47 AM EST PHONED CALL RECEIVED FROM PT STATING THAT HE SEEN VG TODAY AND THAT VG EXPLAINED ALL TESTING RESULTS TO PT AND THAT APPT SCHED FOR 05/08/24 WAS NO LONGER NEEDED AND TO CANCEL APPT. documented in this encounterDiley Ridge Medical Center01-16-2025 Telephone encounter Note* Telephone Encounter - Francesca Mora CMA - 05/03/2024 10:47 AM EST PHONED CALL RECEIVED FROM PT STATING THAT HE SEEN VG TODAY AND THAT VG EXPLAINED ALL TESTING RESULTS TO PT AND THAT APPT SCHED FOR 05/08/24 WAS NO LONGER NEEDED AND TO CANCEL APPT. [facility]01-16-2025 History of Present illness Narrative* Curry Clemons MD - 05/03/2024 10:00 AM EST Elian Cavazos Date of visit: 05/03/2024 Date of : 1955 Age: 68 y.o. Patient Active Problem List Diagnosis Arteriosclerosis of arterial coronary artery bypass graft Hyperlipidemia Stable angina ([facility]) Essential hypertension Varicose veins 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[facility]) Phlebitis of superficial veins of lower extremity Obstructive sleep apnea syndrome Obesity Impaired fasting glucose Atherosclerotic heart disease of [place] coronary artery with other forms of angina pectoris ([facility]) Vitamin B12 deficiency neuropathy ([facility]) Osteoarthritis of knee Artificial knee joint present [...] visit. 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 SCHED W/ r/s w [...] Hyperlipidemia Hyperlipidemia Hypertension Phlebitis 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[facility]) PVD (peripheral vascular disease) ([facility]) Sleep apnea No data recorded No data recorded No data recorded Past Surgical History: Procedure Laterality Date COLONOSCOPY 04/18/2007 COLONOSCOPY N/A 08/03/2017 Performed by Alek Shelton DO at [facility] CORONARY ARTERY BYPASS GRAFT 04/18/1997 X's [...] per Session: 20 min Stress: Unknown (03/17/2022) [employer] - Occupational Stress Questionnaire Feeling of Stress : Patient declined Social Connections: Socially Integrated (03/17/2022) Social Connection and Isolation Panel [NHANES] Frequency of Communication with Friends and Family: More than three times a week Frequency of Social Gatherings with Friends and Family: More than three times a week Attends Caodaism Services: More than 4 times per year [...] medications. IMPRESSIONS/PLAN 1. Abnormal Holter exam - [facility] - [place], [place] - POCT EKG - Holter monitor 24-48 hour; Future 2. PVC (premature ventricular contraction) - [facility]iology - [place], [place] - POCT EKG - Holter monitor 24-48 hour; Future Assessment and plan: 1. Frequent PVCs: - burden is as high as 23%. - PVC morphology is consistent with a left ventricular outflow tract origin. - LV function is low normal 45-50%. LV function has been stable. - no symptoms secondary to PVCs. - not on beta-kemar therapy. Patient has prolonged [place] interval at baseline. Episodes of second-degree type [...] as 2-1 av block: Patient has prolonged OH interval at baseline. Episodes of AV block noted nut culler. This is most likely secondary to high [...] 6 months (around 10/31/2024). PCP: Alek Shelton Jr DO Referring Physician: Yani Lucio MD [address] [place] [address] documented in this encounterDiley Ridge Medical Center01-13-2025 Miscellaneous Notes* Telephone Encounter - Viktor Mancilla RN - 04/30/2024 4:40 PM EST Images from the original note were not included. Viktor Mancilla RN 04/30/2024 4:40 PM EST Back to Top Holter results and LLDs recommendations called and reviewed with patient. Pt agreeable to EP referral in [place] and was also given the [facility] office number. Viktor Mancilla RN 04/30/2024 8:47 AM EST LMOM (ok-hipaa) with Holter results and LLDs recommendations. 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 Yani Lucio MD 04/30/2024 7:40 AM EST EP consult please. For his I would prefer sooner rather than waiting for a more convenient location documented in this encounterDiley Ridge Medical Center01-13-2025 Telephone encounter Note* Telephone Encounter - Viktor Mancilla RN - 04/30/2024 4:40 PM EST Images from the original note were not included. Viktor Mancilla RN 04/30/2024 4:40 PM EST Back to Top Holter results and LLDs recommendations called and reviewed with patient. Pt agreeable to EP referral in [place] and was also given the Phan office number. Viktor Mancilla RN 04/30/2024 8:47 AM EST LMOM (ok-hipaa) with Holter results and LLDs recommendations. 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 Yani Lucio MD 04/30/2024 7:40 AM EST EP consult please. For his I would prefer sooner rather than waiting for a more convenient location I-MD12-30-2024 History of Present illness Narrative* Yani Lucio MD - 04/16/2024 9:00 AM EST Elian Gaffney Cavazos Date of visit: 04/16/2024 Date of : 1955 Age: 68 y.o. Patient Active Problem List Diagnosis Arteriosclerosis of arterial coronary artery bypass graft Hyperlipidemia Stable angina ([facility]) Essential hypertension Varicose veins 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[facility]) Phlebitis of superficial veins of lower extremity Obstructive sleep apnea syndrome Obesity Impaired fasting glucose Atherosclerotic heart disease of [place] coronary artery with other forms of angina pectoris ([facility]) Vitamin B12 deficiency neuropathy ([facility]) Osteoarthritis of knee Artificial knee joint present [...] MO FU ECHO L/S LABS DONE AT [facility] History of Present Illness I had the opportunity to meet this 68-year-old today. He was last in the office 03/29/2023 He has rare chest burning. He has not used sublingual nitroglycerin since his last visit He denies worsening shortness of breath, syncope or palpitations He is retired from [employer] and . He is working part-time at [...] Hyperlipidemia Hyperlipidemia Hypertension Phlebitis 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[facility]) PVD (peripheral vascular disease) ([facility]) Past Surgical History: Procedure Laterality Date COLONOSCOPY 04/18/2007 COLONOSCOPY N/A 08/03/2017 Performed by Alek Shelton DO at [facility] CORONARY ARTERY BYPASS GRAFT 04/18/1997 X's [...] per Session: 20 min Stress: Unknown (03/17/2022) [employer] - Occupational Stress Questionnaire Feeling of Stress : Patient declined Social Connections: Socially Integrated (03/17/2022) Social Connection and Isolation Panel [NHANES] Frequency of Communication with Friends and Family: More than three times a week Frequency of Social Gatherings with Friends and Family: More than three times a week Attends Caodaism Services: More than 4 times per year [...] once daily at bedtime. 6. Stable angina ([facility]) - nitroglycerin (NITROSTAT) 0.4 MG SL tablet; [...] 2. Hyperlipidemia --atorvastatin and Zetia --labs at [facility] 3. Primary hypertension, controlled 4. Obstructive [...] Referring Physician: Alek Shelton DO [address] [place] [address] documented in this encounterDiley Ridge Medical Center12-27-2024 Miscellaneous Notes* Telephone Encounter - Jannet Nichole CMA - 04/13/2024 2:27 PM EST Called patient to remind them to bring their most current copy of their medication list with them to their appt. Patient verbalizes understanding. documented in this encounterDiley Ridge Medical Center12-27-2024 Telephone encounter Note* Telephone Encounter - Jannet Nichole CMA - 04/13/2024 2:27 PM EST Called patient to remind them to bring their most current copy of their medication list with them to their appt. Patient verbalizes understanding. [facility] [employer] [id number] Miscellaneous Notes* Telephone Encounter - Kristine Yanez RN - 01/11/2024 2:52 AM EDT Please sign and route if you agree. Thank you RASHE[facility] 03/29/23 Lipids 02/24/23 CBC 02/2022 - Lab orders in place and lab slips mailed to pt on 01/02/24 per telephone encounter. CMP 06/14/23 documented in this [facility]09-25-2024 Telephone encounter Note* Telephone Encounter - Kristine Yanez RN - 01/11/2024 2:52 AM EDT Please sign and route if you agree. Thank you RASHEED 03/29/23 Lipids 02/24/23 CBC 02/2022 - Lab orders in place and lab slips mailed to pt on 01/02/24 per telephone encounter. CMP 06/14/23 [facility] [id number] Miscellaneous Notes* Telephone Encounter - Rupa Bhakta [...] and mailed to patient. documented in this encounterDiley Ridge Medical Center09-13-2024 Telephone encounter Note* Telephone Encounter - Rupa Bhakta RN - 12/30/2023 2:35 PM EDT Patient called office wanting to get lipids checked prior to appt 04/16/24 with LLD. Due for labs from refill protocol. Will be due after feb 24, all labs for all meds ordered. [facility] [id number] Telephone encounter Note* Telephone Encounter - Rupa Bhakta RN - 12/30/2023 2:35 PM EDT All lab slips printed and mailed to patient. [facility] [facility] of Present illness Narrative* Alek Shelton, DO - 06/14/2023 8:30 AM EST IM PROGRESS NOTE Patient - Elian Cavazos Age - 67 y.o. - 1955 [facility] # - [id number] ASSESSMENT & PLAN 1. Vitamin B12 deficiency neuropathy ([facility]) -currently not on cyanocobalamin -has not noticed change in sensation with or without treatment -the swollen failing, may actually be swelling because of his chronic venous insufficiency. -repeat B12 level - Vitamin B12; Future 2. Atherosclerotic heart disease of [place] coronary artery with other forms of angina pectoris ([facility]) -overall stable. -reviewed results of recent echocardiogram and event monitor with the patient. Does have borderlineEF, does have frequent PVCs and had 7 beat run VT - Comprehensive metabolic panel; Future 3. 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[facility]) -currently on Remicade -skin symptoms are improved [...] 27 cm Final Left Ventricle Mass 04/15/2023 [id number] g Final Interventricular Septum Diastolic * 04/15/2023 [...] Final Other Testing No results found. Alek Sheltno DO., [facility] Physicians Office: [phone] [facility] NoteProcedure: Right Total knee arthroplasty Implant sizes for this patient's total knee listed below: Stacey persona Femur: 12 CR right Tibia: J right Liner: 10 mm MC vitamin E Patella: Not resurfaced Cement: Refobacin R 0.5g gentamicin 1X40 and Stacey Biomet cement without antibiotic 1X40. Preoperative diagnosis: Right knee OA Postoperative diagnosis: Same Surgeon: Jyoti Group Captain: Alex Hayes, PAC was required to help [...] proceed via informed consent on file at [facility]. for a right Total Knee Replacement. Operative [...] saline was used intraop (more content not included)...[facility]05-25-2021 NoteProcedure: Left Total knee arthroplasty Implant sizes for this patient's total knee listed below: Stcaey persona Femur: 12 CR Left Tibia: J left Liner: 13 mm MC vitamin E Patella: Not resurfaced Cement: Refobacin R 0.5g gentamicin 1X40 and Stacey Biomet cement without antibiotic 1X40. Preoperative diagnosis: Left knee OA Postoperative diagnosis: Same Surgeon: Jyoti Group Captain: Alex Hayes, PAC was required to help [...] proceed via informed consent on file at [facility]. for a left Total Knee Replacement. Operative [...] used intraoperatively for irrig (more content not included)...[facility] SystemEvaluation noteNo assessment information availableSelect Medical Special[facility] Work Phone: Evaluation note* Diagnosis Bradycardia- Primary Other specified cardiac dysrhythmias PVC (premature ventricular contraction) Other premature beats Essential hypertension Unspecified essential hypertension Mixed hyperlipidemia Arteriosclerosis of arterial coronary artery bypass graft Stable angina ([facility]) Other and unspecified angina pectoris Coronary arteriosclerosis Coronary atherosclerosis of unspecified type of vessel, [place] or graft documented in this encounter [facility] System[facility] note* Diagnosis Abnormal Holter exam- Primary PVC (premature ventricular contraction) Other premature beats documented in this encounter [facility]* Diagnosis PVC (premature ventricular contraction)- Primary Other premature beats Abnormal Holter exam documented in this encounter [facility] note* Diagnosis Vitamin B12 deficiency neuropathy ([facility]) Other B-complex deficiencies Atherosclerotic heart disease of [place] coronary artery with other forms of angina pectoris ([facility]) 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[facility]) Psoriatic arthropathy Seasonal allergic rhinitis, unspecified trigger documented in this encounter [facility] note* Diagnosis Medication refill- Primary Issue of repeat prescriptions Arteriosclerosis of arterial coronary artery bypass graft Mixed hyperlipidemia Bradycardia Other specified cardiac dysrhythmias Hypomagnesemia Disorders of magnesium metabolism documented in this encounter [facility] SystemEvaluation note* Diagnosis Arteriosclerosis of arterial coronary artery bypass graft Stable angina ([facility]) Other and unspecified angina pectoris Essential hypertension Unspecified essential hypertension Coronary arteriosclerosis Coronary atherosclerosis of unspecified type of vessel, [place] or graft Mixed hyperlipidemia Bradycardia Other specified cardiac dysrhythmias [facility]* Diagnosis Arteriosclerosis of arterial coronary artery bypass graft Essential hypertension Unspecified essential hypertension Coronary arteriosclerosis Coronary atherosclerosis of unspecified type of vessel, [place] or graft Mixed hyperlipidemia Bradycardia Other specified cardiac dysrhythmias [facility]* Diagnosis Bradycardia Other specified cardiac dysrhythmias Essential hypertension Unspecified essential hypertension Mixed hyperlipidemia Arteriosclerosis of arterial coronary artery bypass graft Coronary arteriosclerosis Coronary atherosclerosis of unspecified type of vessel, [place] or graft documented in this encounter [facility] note* Diagnosis Mixed hyperlipidemia- Primary 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[facility]) Psoriatic arthropathy Vitamin B12 deficiency neuropathy Other B-complex deficiencies Stable angina Other and unspecified angina pectoris Encounter for screening for malignant neoplasm of prostate documented in this encounter [facility] note* Diagnosis Peripheral polyneuropathy- Primary Chronic venous insufficiency of lower extremity 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[facility]) Psoriatic arthropathy documented in this encounter [facility]Evaluation note* Diagnosis PVC (premature ventricular contraction)- Primary Other premature beats documented in this encounter [facility] note* Diagnosis Mixed hyperlipidemia- Primary Chronic venous insufficiency of lower extremity Essential hypertension Unspecified essential hypertension 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[facility]) Psoriatic arthropathy Bilateral leg edema Edema Bilateral [...] peripheral vascular disease documented in this encounter [facility] note* Diagnosis Chronic venous insufficiency of lower extremity- Primary Lymphedema Other noninfectious lymphedema [facility] Diagnosis Chronic venous insufficiency of [...] extremity [facility]* Diagnosis Chronic venous insufficiency of lower extremity- Primary S/P CABG x 2- Primary Postsurgical aortocoronary bypass status Essential hypertension Unspecified essential hypertension Mixed hyperlipidemia PVC's (premature ventricular contractions) Other premature beats AV block, Mobitz 1 Bradycardia Other specified cardiac dysrhythmias Arteriosclerosis of arterial coronary artery bypass graft Coronary arteriosclerosis Coronary atherosclerosis of unspecified type of vessel, [place] or graft Preop cardiovascular exam Pre-operative cardiovascular examination Chronic venous insufficiency of lower extremity [facility] Diagnosis Chronic venous insufficiency of lower extremity- Primary Bradycardia Other specified cardiac dysrhythmias Essential hypertension Unspecified essential hypertension Mixed hyperlipidemia Arteriosclerosis of arterial coronary artery bypass graft Stable angina Other and unspecified angina pectoris Coronary arteriosclerosis Coronary atherosclerosis of unspecified type of vessel, [place] or graft Chronic venous insufficiency of lower extremity documented [...] for referral (narrative)No reason for referral information availableSelect [facility] Work Phone: Summary Purpose Family History No [...] section and content) DATE CREATED AUTHOR 01/20/2021 [facility] DATE CREATED AUTHOR AUTHOR'S ORGANIZ ATION 03/13/2021 [facility] DATE CREATED AUTHOR AUTHOR'S ORGANIZ ATION 09/02/2022 [facility] DATE CREATED AUTHOR AUTHOR'S ORGANIZ ATION 01/20/2025 [facility] DATE CREATED AUTHOR AUTHOR'S ORGANIZ ATION 01/25/2025 [facility] DATE CREATED AUTHOR AUTHOR'S ORGANIZ ATION 02/05/2025 [facility] DATE CREATED AUTHOR AUTHOR'S ORGANIZ ATION 02/22/2025 [facility] Care Teams (unrecognized sec tion and content) Team Status: Inactive Member Role Status Dates Alek Shelton DO Primary Care Provider Active Kate Guzman ProviderActive Team Status: Active Member Role Status Dates Alek Shelton DO Primary Care Provider Active Team Status: Inactive Member Role Status Dates Alek Shelton DO Primary Care Provider Active Eseruby Villanueva , UI PROGRAMMER-CAttending ProviderActive Team Status: Inactive Member Role Status Dates Alek Shelton DO Primary Care Provider Active Sta rt: August 16, 2023 End: August 16, 2023Joruby Villanueva , UI PROGRAMMER-CAttending ProviderActiveStart: August 16, 2023 End: August 16, 2023 Team Status: Inactive Member Role Status Dates Alek Sehlton DO Primary Care Provider Active Sta rt: December 06, 2023 End: December 06, 2023Mazack Velazquez MDAttending ProviderActiveStart: December 06, 2023 End: December 06, 2023Team MemberRelationshipSpecialtyStart DateEnd Date Alek Shelton [address] [place] [address] PCP - GeneralInternal Medicine11/01/16Team MemberRelationshipSpecialtyStart Date End Date Alek Shelton [address] [place] [address] PCP - GeneralInternal Medicine11/01/16Team MemberRelationshipSpecialtyStart Date End Date Alek Shelton DO [address] [place] [address] PCP - GeneralInternal Medicine11/01/16Team MemberRelationshipSpecialtyStart Date End Date Alek SheltonDO [address] [place] [address] PCP - GeneralInternal Medicine11/01/16Team MemberRelationshipSpecialtyStart Date End Date VioalAlek zamoraDO [address] [place] [address] PCP - GeneralInternal Medicine11/01/16Team MemberRelationshipSpecialtyStart Date End Date Alek Shelton DO [address] [place] [address] PCP - GeneralInternal Medicine11/01/16Team MemberRelationshipSpecialtyStart Date End Date Alek Shelton DO [address] [place] [address] [facility] - [facility]11/01/16Team MemberRelationshipSpecialtyStart Date End Date Alek Shelton DO [address] [place] [address] [facility] - [facility]11/01/16Team MemberRelationshipSpecialtyStart Date End Date Alek Shelton DO [address] [place] [address] PCP - GeneralInternal Medicine11/01/16Team MemberRelationshipSpecialtyStart Date End Date Alek Shelton DO [address] [place] [address] PCP - GeneralInternal Medicine11/01/16 Team Status: Inactive Member Role Status Dates Alek Shelton DO Primary Care Provider Active Sta rt: July 03, 2024 End: July 03, 2024MattKate Cabello ProviderActiveStart: July 03, 2024 End: July 03, 2024Team MemberRelationshipSpecialtyStart DateEnd Date Alek Shelton DO [address] [place] [address] PCP - [facility]11/01/16Team MemberRelationshipSpecialtyStart Date End Date Alek Shelton DO [address] [place] [address] PCP - [facility]11/01/16Team MemberRelationshipSpecialtyStart Date End Date Alek Shelton DO [address] [place] [address] PCP - [facility]11/01/16 Team Status: Inactive Member Role Status Dates Alek Shelton DO Primary Care Provider Active Sta rt: October 09, 2024 End: October 09, 2024Kate Soto ProviderActiveStart: October 09, 2024 End: October 09, 2024 Team Status: Inactive Member Role Status Dates Alek Shelton DO Primary Care Provider Active Sta rt: November 13, 2024 End: November 13, 2024Shelby Waldron DOAttblair ProviderActiveStart: November 13, 2024 End: November 13, 2024Team MemberRelationshipSpecialtyStart DateEnd Date Alek Shelton DO [address] [place] [address] PCP - [facility]11/01/16 Team Status: Inactive Member Role Status Dates Alek Shelton DO Primary Care Provider Active Sta rt: January 15, 2025 End: January 15, 2025Kate Soto ProviderActiveStart: January 15, 2025 End: January 15, 2025Team MemberRelationshipSpecialtyStart DateEnd Date Alek Shelton DO [address] [place] [address] PCP - GeneralInternal Medicine11/01/16Team MemberRelationshipSpecialtyStart Date End Date Mariealexandria Alek Paty, DO [address] [place] [address] PCP - GeneralInternal Medicine11/01/16Team MemberRelationshipSpecialtyStart Date End Date Alek Shelton, DO [address] [place] [address] PCP - GeneralInternal Medicine11/01/16Team MemberRelationshipSpecialtyStart Date End Date Alek Shelton, DO [address] [place] [address] PCP - GeneralInternal Medicine11/01/16Team MemberRelationshipSpecialtyStart Date End Date Alek Shelton, DO [address] [place] [address] PCP - GeneralInternal Medicine11/01/16Team MemberRelationshipSpecialtyStart Date End Date Alek Shelton, DO [address] [place] [address] PCP - GeneralInternal Medicine11/01/16Team MemberRelationshipSpecialtyStart Date End Date Alek Shelton, DO [address] [place] [address] PCP - GeneralInternal Medicine7/17/17Team MemberRelationshipSpecialtyStart Date End Date Alek Shelton DO [address] [place] [address] PCP - GeneralInternal Medicine11/01/16 Goals (unrecognized section [...] and content) ReasonCommentsFollow-upEST PT 12 MO FU HM ECHO L/S HM LABS DONE AT [facility] ReasonOnset DateCommentsEP kjeqlelv15/13/2025ReasonCommentsFollow-upNP EP ABN HM SCHED W/ r/s w pt from june apptSpecialtyDiagnoses / ProceduresReferred By ContactReferred To ContactCardiology Diagnoses Abnormal Holter exam PVC (premature ventricular contraction) Yani Lucio MD [address] [place] [address] Phone: tel: fax: [facility] [address] [place] [address] Phone: tel: fax: Referral IDStatusReasonStart DateExpiration DateVisits RequestedVisits [id number] Review Specialty Services Required [id number] RefillReasonOnset DateCommentsMed Ypubnw8406/08/2024ReasonCommentsHypertension HyperlipidemiaReasonCommentsPeripheral NeuropathyReasonCommentsFollow-upov 6 mo holter 10/08 @[facility] donaldo w ptReasonCommentsEdemaVaricose VeinsTesting doneExtremity PainSpecialtyDiagnoses / ProceduresReferred By ContactReferred To Contact Vascular Surgery Diagnoses Chronic venous insufficiency of lower extremity Alek Shelton, DO [address] [place] [address] Phone: tel: fax: Katheryn Powers, DO [address] [place] [address] Phone: tel:[phone] fax: Referral IDStatusReasonStart DateExpiration DateVisits RequestedVisits [id number] Specialty Services Required [id number]-[id number] doneChronic Venous InsufficiencyCarotid Artery DiseaseReasonCommentsSleep ApneaInspire consultSpecialtyDiagnoses / ProceduresReferred By ContactReferred To Contact Otolaryngology Diagnoses LINDA (obstructive sleep apnea) Katheryn Powers, DO [address] [facility] [address] [place] [address] Phone: tel: fax: Hernando Guerrero MD [address] [facility] [place] [address] Phone: tel: fax: Referral IDStatusReasonStart DateExpiration DateVisits RequestedVisits [id number] Review Specialty Services Required 1ReasonOnset DateCommentsSleep Lab02/06/2025PSGReasonComments Follow-upEST PT 1Y FU,LS RDG, SCHED W/PT, PRE OP VASC DR POWERS 14 AND 12-3 ReasonOnset DateCommentsMed Ehbfod8602/25/2025 FOR RECORDS PERTAINING TO PATIENTS WHO ARE [...] BE BASED ON THE PRIMARY CLINICAL RECORDS. [employer] provides no warranty or guarantee of the accuracy or completeness of information in this document.
== END 2025-03-18 19:53 | disposition home or self-care (01) ==
DX: G47.33 Obstructive sleep apnea (adult) (pediatric) (principal)
CPT/HCPCS: 95811